=== PATIENT | female | born 1950 | race African-American/Black ===

== ENCOUNTER → 2019-08-22 10:34 | Outpatient (CLI) | payer MEDICARE, SELFPAY ==
--- NOTE | ~2019-08-22 | XR_ITS ---
XR lumbar spine 2-3V 08/22/2019 11:13 Indication: Back pain. Procedure: 3 views lumbar spine Comparison: 10/05/2015 Findings: There is disc narrowing which has progressed at L3-4, L4-5 and L5-S1. There has been progre ssion of first set hypertrophy at these levels with grade 1 degenerative spondylolisthesis at L4-5. V ertebral body heights are maintained. Impression: 1: Interval progression of moderate lumbar spondylosis. Reviewed, dictated and finalized at location A. 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
--- NOTE | ~2019-08-22 | XR_ITS ---
EXAMINATION: XR knee RT 2V EXAM DATE: 08/22/2019 11:13 INDICATION: Chronic lower back pain, Medial RT knee pain, General Rt hip pain, SX x3 months, Pt stat es had a recent fall but is not relative to current pain. TECHNIQUE: Right knee frontal and lateral projections. Comparison is made to prior examination from 01/20/2016. FINDINGS: There is moderate medial tibiofemoral and patellofemoral primary osteoarthritis. 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 There are no acute fractures or dislocations identif ied. There is no subcutaneous gas. Mild meniscal calcification, chondrocalcinosis. Chondrocalcinosi s can be an age related finding, but with other possible etiologies including CPPD, parathyroid disor ders, hemochromatosis, gout. There are no radiopaque foreign bodies. Mild progression compared to prior study. IMPRESSION: 1. Moderate right knee osteoarthritis. 2. Mild chondrocalcinosis. Reviewed, dictated and finalized at location B. 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
--- NOTE | ~2019-08-22 | XR_ITS ---
EXAMINATION: XR hip RT 2V w AP pelvis EXAM DATE: 08/22/2019 11:13 INDICATION: Chronic lower back pain, Medial RT knee pain, General Rt hip pain, SX x3 months, Pt stat es had a recent fall but is not relative to current pain TECHNIQUE: Right hip frontal, 'frog leg' projections for interpretation. Frontal projection pelvis. Comparison is made to prior examination from 11/27/2017. FINDINGS: Smooth right hip femoral head contour, no radiographic evidence of avascular necrosis. The re is moderate symmetric bilateral hip primary osteoarthritis. There are no acute fractures or disloc ations identified. There is no subcutaneous gas. Calcifications in the pelvis are believed to be ph leboliths. There are no radiopaque foreign bodies. IMPRESSION: Moderate symmetric bilateral hip osteoarthritis. Reviewed, dictated and finalized at location B. 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
== END ==
PROVIDERS: PCP Emergency Medicine; Visit Provider Emergency Medicine
DX: M47.896 Other spondylosis, lumbar region (principal); M16.0 Bilateral primary osteoarthritis of hip; M17.11 Unilateral primary osteoarthritis, right knee
CPT/HCPCS: 72100; 73502; 73521; 73560

== ENCOUNTER 2019-11-14 17:11 | Emergency (ER) | payer MEDICARE, SELFPAY ==
--- NOTE | ~2019-11-14 | XR_ITS ---
EXAMINATION: XR chest 2V DATE: 11/14/2019 17:58 INDICATION: Shortness of breath and right-sided chest pain TECHNIQUE: PA and lateral views of the chest are obtained. COMPARISON: 05/21/2018 FINDINGS: The lungs are free of acute opacities. There is no pleural effusion or pneumothorax. The ca rdiomediastinal silhouette is normal. There is moderate thoracic spondylosis. IMPRESSION: 1. No acute cardiopulmonary abnormality. Reviewed, dictated and finalized at location A.
--- NOTE | 2019-11-14 17:23 | ED.URI ---
HPI - URI/Sore Throat General Chief Complaint: Upper Respiratory Infection Stated Complaint: Sore throat/abd pain/chest burning sensation Time Seen by Provider: 11/14/19 17:23 Source: patient and RN notes reviewed History of Present Illness HPI Narrative: Patient is a 69-year-old female that presents the urgent care with complaints of sore throat, intermittent upper chest burning and dry cough. Patient states symptoms started on Sunday. Patient states that she has been taking throat spray for the sore throat. States that the chest burning and the sore throat is not consistent. States that the dry cough is sometimes causing her some intermittent shortness of breath with right upper back pain. Patient denies any history of blood clot. States that she is also had a right upper abdominal pain which is been on and off for over 1 month and she has been seeing her PCP for it. Patient states that she is also had imaging done for her right upper side pain. Reports that her main concern today is a sore throat and the upper chest burning . Patient denies any fever, nausea, vomiting. No other acute complaints. No acute distress noted. Patient aware the plan of care. Related Data Home Medications Medication Instructions Recorded Confirmed aspirin 81 mg tablet,delayed 81 mg PO DAILY 07/02/19 07/02/19 release blood sugar diagnostic #10 each 07/02/19 07/02/19 clopidogrel 75 mg tablet 75 mg PO DAILY 07/02/19 07/02/19 furosemide 40 mg tablet 40 mg PO QAM 07/02/19 07/02/19 lancets 33 gauge #100 each 07/02/19 07/02/19 nortriptyline 25 mg capsule 25 mg PO DAILY 07/02/19 07/02/19 pen needle, diabetic 32 gauge x #50 each 07/02/19 07/02/19 1/4 potassium chloride 20 mEq 20 meq PO DAILY 07/02/19 07/02/19 tablet,extended release(part/cryst) simvastatin 20 mg tablet 20 mg PO DAILY 07/02/19 07/02/19 insulin glargine [Lantus Solostar unit SUBCUT 11/14/19 U-100 Insulin] insulin lispro [Humalog KwikPen unit SUBCUT 11/14/19 Insulin] omeprazole 11/14/19 spironolactone 11/14/19 tobramycin-dexamethasone [TobraDex] 11/14/19 Allergies Allergy/AdvReac Type Severity Reaction Status Date / Time Gbzyrrf-Vda-Rvx Reductase Allergy Mild Cramping Verified 08/05/19 20:17 Inhibitor of the Muscles Penicillins Allergy Itching Verified 08/05/19 20:17 Review of Systems Review of Systems: Narrative: CONSTITUTIONAL: Denies fever, chills, or sweats. EYES: Denies visual changes, redness, or discharge. ENT: Reports of intermittent sore throat and postnasal drainage CARDIOVASCULAR: Denies chest pain, palpitations, or edema. RESPIRATORY: Reports of dry cough with intermittent dyspnea GASTROINTESTINAL: Reports of intermittent right upper abdominal/side pain without nausea, vomiting, diarrhea GENITOURINARY: Denies dysuria or hematuria. SKIN: Denies rash or itching. MUSCULOSKELETAL: Denies back pain, joint pain, or myalgia. NEUROLOGIC: Denies headache, numbness, or weakness. All other systems reviewed are negative, except as documented in HPI. PMFSH Comments At the time of my signature, I reviewed and agree with the nursing past medical, surgical, social, and family history. There is no relevant family history pertinent to the patient complaint. Exam Narrative: Exam Narrative: GENERAL: This is a well-nourished, well-developed patient, in no apparent distress. HEAD: normocephalic, atraumatic. EYES: PERRL. Sclera clear/white. Vision is grossly intact. EARS: External ears normal, auditory canals clear and without drainage, TMs normal without perforation. Hearing grossly intact. NOSE: External nose normal with no obvious nasal discharge, nares without redness, no rhinorrhea. THROAT: Mucous membranes moist, posterior pharynx clear. Mild postnasal drainage NECK: Neck supple CARDIOVASCULAR: Regular rate and rhythm without murmurs, gallops, or rubs. RESPIRATORY: Clear to auscultation. Slightly diminished bibasilar GASTROINTESTINAL: Abdomen soft,
[2019-11-14 17:24] VITALS: BP 152/56; PULSE 94; RESP 20; TEMP 37.5; O2SAT 100
== END 2019-11-14 18:20 | disposition home or self-care (01) ==
PROVIDERS: Emergency Provider Nurse Practitioner Family; PCP Emergency Medicine
DX: R09.82 Postnasal drip (principal); K21.9 Gastro-esophageal reflux disease without esophagitis; I10 Essential (primary) hypertension; E78.00 Pure hypercholesterolemia, unspecified; E11.9 Type 2 diabetes mellitus without complications; Z86.73 Personal history of transient ischemic attack (TIA), and cerebral infarction without residual deficits; Z79.4 Long term (current) use of insulin
CPT/HCPCS: 71046; 99213; G0463

== ENCOUNTER 2020-02-16 16:28 | Inpatient (IN) | payer MEDICARE, SELFPAY ==
[2020-02-16] VITALS (11 sets, daily range): BP systolic 154–180; BP diastolic 59–80; PULSE 66–78; RESP 14–20; TEMP 36.3–36.7; O2SAT 99–100; BMI 49.8
--- NOTE | ~2020-02-16 | CT_ITS ---
EXAMINATION: CTA chest abdomen pelvis DATE: 02/16/2020 20:58 CDT INDICATION: Right chest pain, shortness of breath and elevated d-dimer. Right abdominal pain. TECHNIQUE: Computed tomographic angiography (CTA) of the chest, abdomen, and pelvis was performed wit h 200 mL Omnipaque-350 intravenous contrast. The dose-length product was 1761.42 mGy-cm. Maximum inte nsity projection 3D-reconstructions of the aorta and other arteries were constructed by the technolog ist on a separate workstation. Automated exposure control and iterative reconstruction technique were employed. COMPARISON: CT dated 05/27/2015. FINDINGS: CHEST, ABDOMEN AND PELVIS CTA: There is atherosclerosis of the aorta. Heart size is normal. There is coronary atherosclerosis. The s tudy is suboptimal for evaluation of pulmonary embolism. No large central pulmonary emboli are identi fied. Nonenlarged mediastinal lymph nodes are present, likely reactive. There are small subcentimeter hypodensities of the liver, most likely benign. The spleen, pancreas, a drenal glands and kidneys are unremarkable. Gallbladder is present. No free air or free fluid. There is a small 2-3 mm fissural nodule on the right, coronal image 39, likely benign. No focal airspace co nsolidation. No endobronchial lesions. Mild thoracic spondylosis with accentuated kyphosis. Moderate lower lumbar spondylosis. IMPRESSION: 1. No findings to account for patient's symptoms. Examination limited for evaluation of peripheral pu lmonary embolism. No large central pulmonary emboli. Reviewed, dictated and finalized at location A. IMPRESSION: 1. No findings to account for patient's symptoms. Examination limited for evalu ation of peripheral pulmonary embolism. No large central pulmonary emboli.
--- NOTE | ~2020-02-16 | XR_ITS ---
EXAMINATION: XR barium swallow modified EXAM DATE: 02/19/2020 10:46 INDICATION: Dysphagia. TECHNIQUE: Modified barium esophagram was performed by myself to administered fluoroscopy, in conjun ction with speech pathologist who administered barium in varying consistencies as per speech patholog ist documentation. This was recorded on tape. The DAP for this procedure was 0.4 Gycm2. FINDINGS: Oral stage: Adequate function. Pharyngeal phase: Adequate function. Laryngeal penetration: None. Aspiration: None. Laryngeal sensitivity: Present. IMPRESSION: Normal modified esophagram exam. Please refer to speech pathologist findings and specifi c feeding recommendations. Reviewed, dictated and finalized at location A. IMPRESSION: Normal modified esophagram exam. Please refer to speech pathologis t findings and specific feeding recommendations.
--- NOTE | ~2020-02-16 | XR_ITS ---
EXAMINATION: XR chest 2V 02/16/2020 18:58 INDICATION: Chest pain. History of hypertension. PROCEDURE: AP and lateral views of the chest COMPARISON: Comparison to multiple prior studies sequentially, with oldest reviewed study dated 10/2015. FINDINGS: The lungs are clear. The cardiomediastinal silhouette is enlarged. There are no pleural ef fusions. There is no pneumothorax suspected. IMPRESSION: 1: NO ACUTE CARDIOPULMONARY DISEASE. Reviewed, dictated and finalized at location A.
--- NOTE | 2020-02-16 16:55 | ECG_ITS ---
Measurements Intervals [place] Rate: 76 P: -18 RI: 193 QRS: -8 QRSD: 100 T: -32 QT: 401 QTc: 452 Interpretive Statements SINUS RHYTHM DELAYED PRECORDIAL R/S TRANSITION MINIMAL Q WAVES- INFERIOR LEADS BORDERLINE ST-T WAVE ABNORMALITY- INF/LAT LEADS BORDERLINE ECG Electronically Signed On 02-16-2020 19:57:04 CDT by Kiran Moss D.O.
[2020-02-16 18:21] LABS: Basophils Percent Auto 0.3 % (0.2-1.2); Eosinophils Absolute Auto 0.1 K/mm3 (0-0.3); Eosinophils Percent Auto 1.5 % (0-4.4); Hemoglobin 11.3 g/dL (12.0-15.0); Immature Granulocyte Absolute 0.02 K/mm3 (0.00-0.031); Immature Granulocyte Percent A 0.2 % (0-0.5); Lymphocytes Absolute Auto 2.07 K/mm3 (0.9-3.2); Lymphocytes Percent Auto 22.2 % (18.3-44.2); Mean Corpuscular HGB Conc 32.3 g/dl (32-36); Mean Corpuscular Hemoglobin 30.2 pg (26-34); Mean Corpuscular Volume 93.6 fl (80-100); Mean Platelet Volume 12.3 fl (7.4-10.4); Monocytes Percent Auto 10.3 % (2.6-8.5); Neutrophils Absolute Auto 6.1 K/mm3 (1.3-6.7); Neutrophils Percent Auto 65.5 % (45.5-73.1); Platelet Count Result 182 k/mm3 (150-375); Red Blood Count 3.74 M/mm3 (4.2-5.4); Red Cell Distribution Width 15.2 % (11.5-14.5); White Blood Count 9.3 K/mm3 (4.5-10.0)
[2020-02-16 18:32] LABS: Anion Gap 13.2 mmol/L (7-16); Blood Urea Nitrogen 28 mg/dL (7-17); Calcium 9.2 mg/dL (8.4-10.2); Carbon Dioxide 26 mmol/L (22-30); Chloride 102 mmol/L (98-107); Estimated CRCL calculation 43 ml/min; Estimated Glomerular Filt Rate 39; Glucose 210 mg/dL (65-105); INR 1.1; Partial Thromboplastin Time 26.5 SECONDS (22.3-36.8); Potassium 4.2 mmol/L (3.4-5.0); Prothrombin Time 13.4 Seconds (11.1-14.7); Sodium 137 mmol/L (137-145)
--- NOTE | 2020-02-16 18:46 | ED.CHESTPAIN ---
HPI - Chest Pain General Chief Complaint: Chest Pain Stated Complaint: sob Time Seen by Provider: 02/16/20 17:53 Source: patient Mode of arrival: ambulatory Limitations: no limitations History of Present Illness HPI narrative: This patient is 69 year old with history of CVA, DM, hyperlipidemia who presents for evaluation of right side body pain x 1 week. Patient reports constant burning pain to right chest, right back, right arm and right leg. The pain in her right chest and back are worse with exertion . She also report fatigue and shortness of breath. Related Data Home Medications Medication Instructions Recorded Confirmed blood sugar diagnostic #10 each 07/02/19 07/02/19 furosemide 40 mg tablet 40 mg PO QAM 07/02/19 07/02/19 lancets 33 gauge #100 each 07/02/19 07/02/19 nortriptyline 25 mg capsule 25 mg PO DAILY 07/02/19 07/02/19 pen needle, diabetic 32 gauge x #50 each 07/02/19 07/02/19 1/4 potassium chloride 20 mEq 20 meq PO DAILY 07/02/19 07/02/19 tablet,extended release(part/cryst) simvastatin 20 mg tablet 20 mg PO DAILY 07/02/19 07/02/19 insulin lispro [Humalog KwikPen unit SUBCUT 11/14/19 Insulin] omeprazole 11/14/19 spironolactone 11/14/19 tobramycin-dexamethasone [TobraDex] 11/14/19 Allergies Allergy/AdvReac Type Severity Reaction Status Date / Time Kajpmvd-Bkt-Bru Reductase Allergy Mild Cramping Verified 11/25/19 06:29 Inhibitor of the Muscles Penicillins Allergy Itching Verified 11/25/19 06:29 Review of Systems Review of Systems: All systems reviewed & are unremarkable except as noted in HPI and below Constitutional: Constitutional: Denies chills and Denies fever(s) Cardiovascular: Cardiovascular: Reports chest pain and Reports radiating jaw, neck or arm pain Respiratory: Respiratory: Reports cough, Reports dyspnea and Denies wheezing Gastrointestinal: Gastrointestinal: Reports abdominal pain, Denies diarrhea, Denies nausea and Denies vomiting Genitourinary: Genitourinary: Reports dysuria PMFSH Past Medical History Medical History (Updated 02/17/20 @ 00:03 by Raquel Latham MD) Dyslipidemia Essential hypertension Type 2 diabetes mellitus with hyperglycemia Surgical History Surgical History (Updated 02/16/20 @ 23:58 by Raquel Latham MD) H/O thyroidectomy Hx of tonsillectomy Social History Social History (System 11/25/19 @ 06:29 by Mirtha Bourne) Smoking status: Never smoker Alcohol intake: never Exam Narrative: Exam Narrative: GENERAL: Well-appearing, well-nourished, and in no acute distress. obese HEAD: Normocephalic, atraumatic EYES: PERRLA and EOMI, conjunctiva clear without discharge NOSE: Nares clear, no rhinorrhea or epistaxis THROAT:Mucous membranes moist, Oropharynx normal without erythema, exudate, peritonsillar swelling or fluctuance NECK: Supple, without lymphadenopathy or mass RESPIRATORY: No respiratory distress, Airway patent, Respirations non-labored, Clear to auscultation without rales, rhonchi or wheeze, right chest tenderness HEART: Regular rate and rhythm. No murmur heard. Normal peripheral pulses. ABDOMEN: Soft, RUQ tenderness, nondistended, normal active bowel sounds. No masses. No rebound or guarding, No organomegaly. EXTREMITIES: No edema, normal strength with full range of motion. SKIN: Warm, dry, normal color without rash NEURO: Alert and oriented x3. CN 2-12 grossly intact. No focal deficits. PSYCH: Normal mood and affect. Course Consultations Consultation #1: I Discussed case with Dr. Izquierdo. PAtient has atypical pain. I discussed I ordered CTA to rule out PE but this CT was unable to rule out PE Date: 02/16/20 Time: 22:16 Consultation #2: I Discussed case with Dr. Arevalo and he agrees to consult. Ok to give lovenox Date: 02/16/20 Time: 23:00 Vital Signs Vital signs: Vital Signs Temperature 97.4 F L 02/16/20 16:52 Pulse Rate 78 02/16/20 16:52 Respiratory Rate 16 07
--- NOTE | 2020-02-16 18:50 | PC.NURSE ---
Called lab to add on CMP , Trop I Baseline, Lipase, PT INR, PTT, D Dimer, CBCD
[2020-02-16] MEDS: ASPIRIN 81 MG CHEWABLE TABLET 324 MG PO (19:01)
[2020-02-16 19:10] LABS: Alanine Aminotransferase 17 U/L (4-35); Albumin Level 4.1 g/dL (3.5-5.1); Alkaline Phosphatase 63 U/L (38-126); Aspartate Amino Transferase 32 U/L (14-36); Bilirubin,Total 0.3 mg/dL (0.2-1.3); Lipase 77 U/L (23-300)
--- NOTE | 2020-02-16 20:10 | PC.NURSE ---
DDImer- added on, Swathi bush called to add on earlier. Jami in lab will find the tube and get it running .
[2020-02-16 20:20] LABS: D Dimer 2.95 ug/mL (<0.48)
[2020-02-16] MEDS: ONDANSETRON INJ 4 MG/2 ML VIAL IV PUSH (21:27)
[2020-02-16] MEDS: NITROGLYCERIN OINTMENT 1 INCH DOSE TRANSDERM (21:28)
[2020-02-16] MEDS: MORPHINE SULFATE 4 MG/ML INJ 6 MG IV PUSH (21:30)
[2020-02-16 22:00] LABS: Troponin I 0.526 ng/mL (0.000-0.034)
[2020-02-16] MEDS: ENOXAPARIN 40 MG/0.4 ML SYRINGE SUB-Q (22:44)
[2020-02-16] MEDS: ENOXAPARIN 100 MG/ML SYRINGE SUB-Q (22:45)
[2020-02-16 22:49] LABS: Add Urine Microscopic? YES; Appearance Urine Clear (Clear); Bacteria Urine Trace /hpf; Bilirubin Urine Negative (Negative); Blood Urine Negative (Negative); Color Urine Straw (Yellow); Glucose Urine UA 1+ mg/dL (Negative); Ketones Urine Negative (Negative); Leukocyte Esterase Ur Negative LEU/UL (Negative); Mucus Urine Rare /lpf; Nitrate Urine Negative (Negative); Protein Urine 1+ mg/dL (Negative); RBC Urine 0-2 /hpf (0-2); Squamous Epithelial Cell Urine Occasional /hpf (Few); Urobilinogen Urine Negative mg/dL (<2.0); WBC Urine 0-3 /hpf
[2020-02-16 22:53] LABS: Specific Grav Ur 1.048 (1.001-1.035)
[2020-02-17] VITALS (16 sets, daily range): BP systolic 138–170; BP diastolic 52–113; PULSE 63–81; RESP 18–20; TEMP 36.1–37.1; O2SAT 97–100
--- NOTE | 2020-02-17 00:09 | ADMGEN ---
This patient, Katlin Calles, was admitted to IMU Room 211-01. Patient/family oriented to hospital policies and general routines including ID bracelet, bed and alarms, visiting hours, pain management, procedures, bathroom and other care routines, personal items, smoking policy, room service/diet, and visiting hours. Valuables list has been completed. Information on how to activate the Rapid Response Team has been discussed. Patient/Family are encouraged to report perceived risks to care and to ask questions if they do not understand what they are told or what they should do.
[2020-02-17 01:23] LABS: Troponin I 0.551 ng/mL (0.000-0.034)
[2020-02-17] MEDS: ACETAMINOPHEN 325 MG TABLET 650 MG PO ×3 (02:11→23:28)
[2020-02-17 05:07] LABS: Basophils Percent Auto 0.3 % (0.2-1.2); Eosinophils Absolute Auto 0.2 K/mm3 (0-0.3); Hematocrit 29.2 % (37.0-47.0); Hemoglobin 9.5 g/dL (12.0-15.0); Immature Granulocyte Absolute 0.02 K/mm3 (0.00-0.031); Immature Granulocyte Percent A 0.2 % (0-0.5); Lymphocytes Absolute Auto 2.86 K/mm3 (0.9-3.2); Lymphocytes Percent Auto 31.3 % (18.3-44.2); Mean Corpuscular HGB Conc 32.5 g/dl (32-36); Mean Corpuscular Hemoglobin 30.5 pg (26-34); Mean Corpuscular Volume 93.9 fl (80-100); Mean Platelet Volume 12.9 fl (7.4-10.4); Monocytes Percent Auto 11.1 % (2.6-8.5); Neutrophils Percent Auto 55.1 % (45.5-73.1); Platelet Count Result 157 k/mm3 (150-375); Red Blood Count 3.11 M/mm3 (4.2-5.4); Red Cell Distribution Width 15.3 % (11.5-14.5); White Blood Count 9.1 K/mm3 (4.5-10.0)
[2020-02-17 05:21] LABS: Anion Gap 10.7 mmol/L (7-16); Blood Urea Nitrogen 27 mg/dL (7-17); Calcium 8.7 mg/dL (8.4-10.2); Carbon Dioxide 26 mmol/L (22-30); Chloride 103 mmol/L (98-107); Estimated CRCL calculation 43 ml/min; Estimated Glomerular Filt Rate 41; Glucose 306 mg/dL (65-105); Potassium 4.7 mmol/L (3.4-5.0); Sodium 135 mmol/L (137-145)
[2020-02-17 08:15] LABS: Glucose Point of Care 307 (65-105)
[2020-02-17] MEDS: ASPIRIN 81 MG CHEWABLE TABLET PO (09:12)
[2020-02-17] MEDS: INSULIN GLARGINE (*BKC) 100 UNITS/ML 20 UNITS SUB-Q ×2 (10:01→20:30)
[2020-02-17] MEDS: POTASSIUM CHLORIDE 20 MEQ TABLET.ER PO (10:04)
[2020-02-17] MEDS: FUROSEMIDE 40 MG TABLET PO (10:04)
[2020-02-17] MEDS: SPIRONOLACTONE 50 MG TABLET PO (10:04)
[2020-02-17] MEDS: LOSARTAN POTASSIUM 100 MG TABLET PO (10:04)
[2020-02-17] MEDS: NORTRIPTYLINE HCL 25 MG CAPSULE PO (10:05)
[2020-02-17] MEDS: LIDOCAINE 5% PATCH 1 PATCH TRANSDERM (10:47)
[2020-02-17] MEDS: NAPROXEN 250 MG TABLET PO ×2 (10:47→17:31)
--- NOTE | 2020-02-17 10:53 | ECHO_ITS ---
Patient Info Name: Katlin Calles Age: 69 years : 1950 Gender: Female Ht: 65 in Wt: 299 lbs BSA: 2.58 m2 HR: 67 bpm BP: 170 / 59 mmHg Heart Rhythm: Sinus Rhythm Technical Quality: Good Exam Date: 02/17/2020 1:13 PM Exam Location: [facility] Patient Status: Outpatient Admit Date: 02/16/2020 Staff Ordering Physician: Gerardo Sanchez MD Ceramic Tiler: Won Doll RDCS, RT Attending Provider: Debbie Izquierdo DO Referring Physician: Daniel SRINIVASAN; Exam Type: CA echo dop color flow w con Study Info Indications I10 - Essential (primary) hypertension R07.1 - Chest pain on breathing Complete two-dimensional, color flow and Doppler transthoracic echocardiogram is performed with contrast to opacify the left ventricle and to improve the deliniation of the left ventricle endocardial borders. Summary 1. Left ventricular systolic function is normal, estimated at 60-65%. 2. There is moderately increased left ventricular wall thickness. 3. The left ventricular diastolic function is grade II diastolic dysfunction. 4. Right atrial chamber dimension is mildly enlarged. 5. There is no aortic valve stenosis. 6. There is trace mitral valve regurgitation. 7. There is mild tricuspid valve regurgitation. 8. Severe pulmonary hypertension, estimated pulmonary arterial systolic pressure is 68 mmHg. Left Ventricle Left ventricular chamber dimension is normal. Left ventricular systolic function is normal, estimated at 60-65%. There is moderately increased left ventricular wall thickness. The left ventricular diastolic function is grade II diastolic dysfunction. Right Ventricle Right ventricular chamber dimension is normal. Right ventricular systolic function is normal. Left Atria Left atrial chamber dimension is mildly enlarged. Right Atria Right atrial chamber dimension is mildly enlarged. Aortic Valve The aortic valve is trileaflet. There is mild aortic valve sclerosis. There is no aortic valve stenosis. There is no aortic valve regurgitation. Pulmonic Valve The pulmonic valve is not well visualized. There is trace pulmonic regurgitation. Mitral Valve The mitral valve has thickened leaflets. There is trace mitral valve regurgitation. The mitral valve annulus is mildly calcified. Tricuspid Valve The tricuspid valve leaflets are normal. There is mild tricuspid valve regurgitation. Severe pulmonary hypertension, estimated pulmonary arterial systolic pressure is 68 mmHg. Pericardium/Pleural The pericardium appears normal. There is no pericardial effusion. Inferior Vena Cava Dilated inferior vena cava with >50% collapse upon inspiration consistent with elevated right atrial pressure, 10 mmHg. Aorta The aortic root size at the sinus of Valsalva is normal. Left Ventricular Outflow Tract Name Value Normal LVOT 2D LVOT Diameter 1.91 cm LVOT Doppler LVOT Peak Gradient 6 mmHg LVOT Mean Gradient 3 mmHg LVOT VTI 28.64 cm LVOT VTI/AV VTI Ratio 0.76
[2020-02-17 11:57] LABS: Glucose Point of Care 322 (65-105)
--- NOTE | 2020-02-17 12:00 | PM.CNCAR ---
Assessment and Plan Assessment and plan (1) Atypical chest pain: Code(s): R07.89 - Other chest pain Status: Acute Assessment and Plan: Right-sided, constant burning/fire sensation worse with movement, touching her skin. Patient is adamant this is highly consistent with her prior shingles, although no skin eruption thus far. Curiously, the pain region in question extends well beyond a clear dermatomal distribution. elevated, flat troponin is not consistent with acute coronary syndrome most likely type 2 infarct, however, precise etiology unknown. Possible saeid/pericardial inflammatory or infectious process. No evidence of PE. patient is not in clinical decompensated heart failure. Check lower extremity venous Dopplers given unequal edema. (2) Elevated troponin I level: Code(s): R79.89 - Other specified abnormal findings of blood chemistry Status: Acute Assessment and Plan: as above, flat mild troponin elevation with highly atypical symptoms not consistent with acute coronary syndrome or acute plaque rupture. Obtain 2D echocardiogram to assess LV size /function, wall motion abnormality, pericardium, valve pathology pulmonary pressures. Further recommendations to follow. (3) Essential hypertension: Code(s): I10 - Essential (primary) hypertension Status: Acute Assessment and Plan: Not well controlled. (4) Type 2 diabetes mellitus with hyperglycemia: Code(s): E11.65 - Type 2 diabetes mellitus with hyperglycemia Status: Acute Assessment and Plan: Defer to primary service. Blood sugars remain elevated. (5) Dyslipidemia: Code(s): E78.5 - Hyperlipidemia, unspecified Status: Acute Assessment and Plan: Continue statin therapy given history of CVA. Goal LDL less than 70. (6) History of CVA (cerebrovascular accident): Code(s): Z86.73 - Personal history of transient ischemic attack (TIA), and cerebral infarction without residual deficits Status: Acute Assessment and Plan: No evidence of acute clinical change. Aspirin 81 mg daily advised as tolerated. History of Present Illness History of Present Illness Consult date/time: Date of service:02/17/20 12:00 This is a cardiology consultation at the request of Dr. Garcia of the [facility] service for opinion regarding elevated troponin and chest pain. Requesting physician: Chiki Garcia MD Consult reason: chest pain Reason For Visit: elevated troponin, right chest pain, Narrative: Patient is a very pleasant 69-year-old female with a past medical history significant for diabetes mellitus, hypertension, dyslipidemia, morbid obesity, history of CVA 2013 who presents with nearly 1 week complaint of burning/ fire sensation the right chest radiating around the right side to her back, neck worse with any movement, touching her scan. She states she is short of breath with activity only because of the pain and difficulty taking a deeper breath with movement. She does not feel she was short of breath for cardiac reason and clearly states she has no cardiac problem and her pain is not related to her heart. Nonetheless, troponins were checked despite her atypical symptoms and were elevated at 0.5 but have serial early been flat with no change. She has no known history of CAD. She states she has not been active past week due to pain along with for sleep. She admits to feeling very fatigued as a result. Her legs have been in a dependent position most often and believes the swelling in her legs has resulted from lack of activity. She will notes swelling in her legs if she sits too long but generally does not have edema. She denies orthopnea. She is adamant her symptoms are entirely consistent with a prior shingles but has yet to develop a rash. She knows she has a nerve infection she bleeds related to shingles and complains of severe / intolerant burning pain. Sh
--- NOTE | 2020-02-17 12:38 | PM.IMHP ---
H&P: HPI History of Present Illness Chief complaint: elevated troponin, right chest pain, Narrative: Katlin Calles is a 69 year old female morbidly obese with history of diabetes patient presented with complaint of right-sided back and chest apin, present for about a week, described as burning sensation numbness along the upper back radiating to the front anterior chest along the dermatome, patient has history of shingles and and described similar presentation and rash did not developed until after 10 days after her initial symptoms started, currently there is no rash, I suspect most likely patient is developing shingles will start the patient on acyclovir and Lidoderm patch for the pain control. patient also has elevated tropes most likely demand ischemia due to pain and stress unlikely acute coronary syndrome patient be seen by reprographics associate and further recommendation to follow. if patient remains clinically stable, begin possibly discharge home tomorrow. Review of Systems Review of Systems: All systems reviewed & are unremarkable except as noted in HPI and below PMFSH Family History Family History Other Cerebrovascular accident Diabetes mellitus Family history of arthritis Family history of cardiovascular disease Hypertension Social History Social History Smoking status: Never smoker Alcohol intake: never Substance use: never Substance use type: does not use Spiritual care concerns: No Meds Home Medications and Allergies Home Medications Medication Instructions Recorded Confirmed Type furosemide 40 mg tablet 40 mg PO QAM 07/02/19 02/17/20 History nortriptyline 25 mg capsule 25 mg PO DAILY 07/02/19 02/17/20 History potassium chloride 20 mEq 20 meq PO DAILY 07/02/19 02/17/20 History tablet,extended release(part/cryst) simvastatin 20 mg tablet 20 mg PO DAILY 07/02/19 02/17/20 History naproxen 250 mg PO BID #30 tablet 08/05/19 02/17/20 Rx gabapentin 300 mg capsule 300 mg PO TID #90 cap 09/15/19 02/17/20 Rx losartan 100 mg tablet 100 mg PO DAILY #90 tablet 11/10/19 02/17/20 Rx insulin lispro [Humalog KwikPen See Protocol SUBCUT ACHS 11/14/19 02/17/20 History Insulin] omeprazole 40 mg PO DAILY 11/14/19 02/17/20 History spironolactone 50 mg PO DAILY 11/14/19 02/17/20 History insulin glargine 100 unit/mL (3 50 unit SUB-Q QPM 90 Days #45 ml 02/04/20 02/17/20 Rx mL) subcutaneous pen Allergies Allergy/AdvReac Type Severity Reaction Status Date / Time Flzvajd-Qdm-Chl Reductase Allergy Mild Cramping Verified 11/25/19 06:29 Inhibitor of the Muscles Penicillins Allergy Itching Verified 11/25/19 06:29 Vital Signs Vital Signs - 24 hr 02/16/20 16:52 02/16/20 18:15 02/16/20 18:28 Temperature 97.4 F L Pulse Rate 78 77 78 Respiratory Rate 16 20 Blood Pressure 169/59 H 167/70 H Pulse Oximetry 100 99 100 02/16/20 19:00 02/16/20 19:30 02/16/20 20:00 Temperature Pulse Rate 72 69 67 Respiratory Rate 19 18 19 Blood Pressure 180/80 H 171/68 H 178/64 H Pulse Oximetry 100 100 100 02/16/20 20:30 02/16/20 21:30 02/16/20 22:30 Temperature 98.0 F Pulse Rate 68 66 70 Respiratory Rate 17 14 18 Blood Pressure 166/74 H 161/68 H 179/72 H Pulse Oximetry 100 100 100 02/16/20 23:15 02/16/20 23:45 02/17/20 00:00 Temperature 97.7 F Pulse Rate 72 75 74 Respiratory Rate 17 20 Blood Pressure 154/62 H Pulse Oximetry 100 99 02/17/20 02:00 02/17/20 04:00 02/17/20 06:00 Temperature 97.5 F L Pulse Rate 76 77 74 Respiratory Rate 18 Blood Pressure 138/52 L Pulse Oximetry 98 02/17/20 07:42 02/17/20 08:00 02/17/20 10:00 Temperature 97 F L Pulse Rate 67 65 76 Respiratory Rate 18 Blood Pressure 170/59 H Pulse Oximetry 99 Exam Narrative: Exam Narrative: morbidly obese Const: General: comfortable and no acute distress HENMT: Gen
[2020-02-17 13:11] LABS: Erythrocyte Sedimentation Rate 122 mm/hr (0-20)
[2020-02-17 13:13] LABS: Glucose Point of Care 268 (65-105)
[2020-02-17] MEDS: PERFLUTREN LIPID MICROSPHERES 1.5 ML VIAL DILUTED TO 10 ML TOTAL VOLUME IV PUSH (13:47)
[2020-02-17] MEDS: INSULIN ASPART (*BKC) 100 UNITS/ML SUB-Q (14:04)
[2020-02-17] MEDS: GABAPENTIN 300 MG CAPSULE PO ×2 (14:05→20:29)
[2020-02-17 16:04] LABS: Glucose Point of Care 279 (65-105)
[2020-02-17 17:26] LABS: Glucose Point of Care 290 (65-105)
[2020-02-17] MEDS: ACYCLOVIR 400 MG TABLET 800 MG PO ×2 (17:31→20:29)
[2020-02-17] MEDS: INSULIN ASPART (*BKC) 100 UNITS/ML 10 UNITS SUB-Q (17:47)
[2020-02-17 20:05] LABS: Glucose Point of Care 231 (65-105)
[2020-02-18] VITALS (12 sets, daily range): BP systolic 141–163; BP diastolic 48–78; PULSE 71–86; RESP 18–28; TEMP 36.2–36.8; O2SAT 96–100
[2020-02-18 05:24] LABS: Hematocrit 29.4 % (37.0-47.0); Hemoglobin 9.5 g/dL (12.0-15.0); Mean Corpuscular HGB Conc 32.3 g/dl (32-36); Mean Corpuscular Hemoglobin 30.2 pg (26-34); Mean Corpuscular Volume 93.3 fl (80-100); Mean Platelet Volume 12.5 fl (7.4-10.4); Platelet Count Result 163 k/mm3 (150-375); Red Blood Count 3.15 M/mm3 (4.2-5.4); Red Cell Distribution Width 15.3 % (11.5-14.5); White Blood Count 7.2 K/mm3 (4.5-10.0)
[2020-02-18 05:37] LABS: Anion Gap 9.7 mmol/L (7-16); Blood Urea Nitrogen 29 mg/dL (7-17); Calcium 8.9 mg/dL (8.4-10.2); Carbon Dioxide 27 mmol/L (22-30); Chloride 103 mmol/L (98-107); Estimated CRCL calculation 39 ml/min; Estimated Glomerular Filt Rate 36; Glucose 227 mg/dL (65-105); Potassium 4.7 mmol/L (3.4-5.0); Sodium 135 mmol/L (137-145)
[2020-02-18] MEDS: GABAPENTIN 300 MG CAPSULE PO ×3 (06:05→22:07)
[2020-02-18] MEDS: ACYCLOVIR 400 MG TABLET 800 MG PO ×5 (08:21→20:33)
[2020-02-18] MEDS: PANTOPRAZOLE 40 MG TABLET PO (08:22)
[2020-02-18] MEDS: ASPIRIN 81 MG CHEWABLE TABLET PO (08:22)
[2020-02-18] MEDS: SPIRONOLACTONE 50 MG TABLET PO (08:22)
[2020-02-18] MEDS: FUROSEMIDE 40 MG TABLET PO (08:22)
[2020-02-18] MEDS: POTASSIUM CHLORIDE 20 MEQ TABLET.ER PO (08:23)
[2020-02-18] MEDS: NORTRIPTYLINE HCL 25 MG CAPSULE PO (08:24)
[2020-02-18] MEDS: LOSARTAN POTASSIUM 100 MG TABLET PO (08:25)
[2020-02-18] MEDS: NAPROXEN 250 MG TABLET PO ×2 (08:25→17:25)
[2020-02-18] MEDS: INSULIN ASPART (*BKC) 100 UNITS/ML 10 UNITS SUB-Q ×3 (08:28→17:23)
[2020-02-18] MEDS: INSULIN ASPART (*BKC) 100 UNITS/ML SUB-Q (08:28)
[2020-02-18 08:38] LABS: Glucose Point of Care 222 (65-105)
--- NOTE | 2020-02-18 10:16 | PM.PNCARD ---
Progress Note: A&P Assessment and Plan (1) Atypical chest pain: Code(s): R07.89 - Other chest pain Status: Acute Assessment and Plan: Right-sided, constant burning/fire sensation worse with movement, touching her skin. Patient is adamant this is highly consistent with her prior shingles, although no skin eruption thus far. Curiously, the pain region in question extends well beyond a clear dermatomal distribution. elevated, flat troponin is not consistent with acute coronary syndrome most likely type 2 infarct, however, precise etiology unknown. Possible saeid/pericardial inflammatory or infectious process. No evidence of PE. Clinically, pain has all been associated with probable shingles but without vesicular skin eruption thus far. She has been treated 5 primary service with a sickle clear, lidocaine patches. Defer to primary service with regards to additional neuropathic pain management. Disposition per hospitalist service. (2) Elevated troponin I level: Code(s): R79.89 - Other specified abnormal findings of blood chemistry Status: Acute Assessment and Plan: As above, flat mild troponin elevation with highly atypical symptoms not consistent with acute coronary syndrome or acute plaque rupture. Echo without wall motion abnormalities. Normal LV function, moderate LVH secondary to hypertensive heart disease. No significant valve pathology, mild right atrial enlargement but preserved right ventricular systolic function with severe pulmonary hypertension. Follow-up 6 weeks as outpatient. (3) Pulmonary hypertension: Code(s): I27.20 - Pulmonary hypertension, unspecified Status: Acute Assessment and Plan: severe, RVSP 68 mm Hg. No clear cardiac/ valvular contribution. Clinically, patient must be retested for obstructive sleep apnea. apnea link if patient remains hospitalized overnight. Otherwise referral to pulmonology an outpatient sleep study. Negative CT PE protocol, no known history of COPD, underlying lung disease per patient. Normal LV size and function without wall motion abnormality, moderate LVH. Discussed my recommendation for pulmonology follow-up and sleep study with Dr. Garcia who agrees. (4) Essential hypertension: Code(s): I10 - Essential (primary) hypertension Status: Acute Assessment and Plan: Not well controlled, likely secondary to poorly controlled pain. (5) Type 2 diabetes mellitus with hyperglycemia: Code(s): E11.65 - Type 2 diabetes mellitus with hyperglycemia Status: Acute Assessment and Plan: Defer to primary service. Blood sugars remain elevated. (6) Dyslipidemia: Code(s): E78.5 - Hyperlipidemia, unspecified Status: Acute Assessment and Plan: Continue statin therapy given history of CVA. Goal LDL less than 70. (7) History of CVA (cerebrovascular accident): Code(s): Z86.73 - Personal history of transient ischemic attack (TIA), and cerebral infarction without residual deficits Status: Acute Assessment and Plan: No evidence of acute clinical change. Aspirin 81 mg daily advised as tolerated. Subjective Date/time seen: date of service: 02/18/20 10:16 Follow-up for chest pain, elevated troponin. Back, neck and right upper chest discomfort improved with lidocaine patches but worse with deep breathing and movement, touching the skin. Primary complaint, however, is severe burning pain in her nasal passages is an into her lungs with any activity. She states she would not be able to tolerate this if discharged and adds she would have to go to another hospital for help unfortunately. Skin burning pain much worse with any activity as well. She can tolerate back and chest discomfort with lidocaine patches but states she is unable tolerate deep breathing due to worsening burning pain with activity Review of Systems Review of Systems: All systems review
[2020-02-18] MEDS: LIDOCAINE 5% PATCH 2 PATCH TRANSDERM (10:17)
--- NOTE | 2020-02-18 10:59 | PM.DS ---
DS: Admitting Diagnosis Admitting Diagnosis Admitting Diagnosis: Other chest pain DS: Summary Time Spent with Patient Time attestation: Total time spent providing and/or coordinating discharge services: DS: Data Data Completed and Pending Labs on day of discharge: Labs from last 24 hours 02/18/20 02/18/20 02/18/20 08:15 04:53 04:53 WBC 7.2 RBC 3.15 L Hgb 9.5 L Hct 29.4 L MCV 93.3 MCH 30.2 MCHC 32.3 RDW 15.3 H Plt Count 163 MPV 12.5 H ESR Sodium 135 L Potassium 4.7 Chloride 103 Carbon Dioxide 27 Anion Gap 9.7 BUN 29 H Creatinine 1.70 H Estim Creat Clear Calc 39 Estimated GFR 36 L Glucose 227 H POC Capillary Glucose 222 H Calcium 8.9 02/17/20 02/17/20 02/17/20 19:57 17:22 15:51 WBC RBC Hgb Hct MCV MCH MCHC RDW Plt Count MPV ESR Sodium Potassium Chloride Carbon Dioxide Anion Gap BUN Creatinine Estim Creat Clear Calc Estimated GFR Glucose POC Capillary Glucose 231 H 290 H 279 H Calcium 02/17/20 02/17/20 02/17/20 13:11 11:39 04:42 WBC RBC Hgb Hct MCV MCH MCHC RDW Plt Count MPV ESR 122 H Sodium Potassium Chloride Carbon Dioxide Anion Gap BUN Creatinine Estim Creat Clear Calc Estimated GFR Glucose POC Capillary Glucose 268 H 322 H Calcium Discharge Plan Discharge Attending physician on discharge: Chiki Garcia Consulting providers: Ascencion Arevalo Discharging Clinician: Chiki Garcia Patient Disposition: Home, Self-Care Activity: as tolerated Diet: diabetic Discharge Instructions: Patient to follow up with her primary care provider as soon as possible, if any symptoms redevelop to go to nearest ER. Patient Instructions: Antibiotic Form Stand Alone Forms: General Discharge Information Discharge Medications: New acyclovir 400 mg Tablet 800 mg PO 5 TIMES DAILY Qty: 70 RF: 0 lidocaine [Lidoderm] 5 % Adhesive Patch,Medicated 3 patch transdermal DAILY Qty: 30 RF: 0 Chloraseptic Sore Throat 6-10 mg Lozenge 1 manisha PO PRN PRN (Reason: Sore Throat) Qty: 30 RF: 0 aspirin [Children's Aspirin] 81 mg Tablet,Chewable 81 mg PO DAILY@0800 Qty: 30 RF: 0 albuterol sulfate 90 mcg/actuation HFA aerosol inhaler 2 puff INHALATION QID PRN (Reason: shortness of breath or wheezing) Qty: 6.7 RF: 0 Continued naproxen 500 mg tablet 250 mg PO BID Qty: 30 RF: 0 omeprazole 40 mg capsule,delayed release(DR/EC) 40 mg PO DAILY RF: 0 spironolactone 50 mg tablet 50 mg PO DAILY RF: 0 insulin lispro [Humalog KwikPen Insulin] 100 unit/mL insulin pen See Protocol unit SUBCUT ACHS RF: 0 simvastatin [Zocor] 20 mg tablet 20 mg PO DAILY RF: 0 nortriptyline 25 mg capsule 25 mg PO DAILY RF: 0 furosemide [Lasix] 40 mg tablet 40 mg PO QAM RF: 0 potassium chloride [Klor-Con M20] 20 mEq tablet,ER particles/crystals 20 meq PO DAILY RF: 0 Lantus Solostar U-100 Insulin 100 unit/mL (3 mL) insulin pen 50 unit SUB-Q QPM 90 Days Qty: 45 RF: 0 gabapentin 300 mg capsule 300 mg PO TID Qty: 90 RF: 2 losartan 100 mg tablet 100 mg PO DAILY Qty: 90 RF: 1 Date of admission: 02/16/20 22:26 Primary Care Provider: Earl Mullen Admitting Provider: Debbie Izquierdo Attending physician on admission: Debbie Izquierdo Condition: Stable Quality VTE Prophylaxis VTE prophylaxis: mechanical ordered
[2020-02-18] MEDS: ACETAMINOPHEN 325 MG TABLET 650 MG PO ×2 (12:17→20:58)
[2020-02-18 12:39] LABS: Glucose Point of Care 155 (65-105)
--- NOTE | 2020-02-18 15:06 | PM.IMPN ---
Progress Note: A&P Assessment and Plan (1) Atypical chest pain: Code(s): R07.89 - Other chest pain Status: Acute Assessment and Plan: Katlin Calles is a 69 year old female morbidly obese with history of diabetes patient presented with complaint of right-sided back and chest apin, present for about a week, described as burning sensation numbness along the upper back radiating to the front anterior chest along the dermatome, patient has history of shingles and and described similar presentation and rash did not developed until after 10 days after her initial symptoms started, currently there is no rash, I suspect most likely patient is developing shingles will start the patient on acyclovir and Lidoderm patch for the pain control. patient also has elevated tropes most likely demand ischemia due to pain and stress unlikely acute coronary syndrome patient be seen by turn down worker and further recommendation to follow. patient with presumed shingles on acyclovir and and Lidoderm patches complains of severe pain on her back and chest feels quite anxious has difficult time taking deep breath and has a difficult catching her breath, is morbidly obese, most likely has a obstructive sleep and pulmonary hypertension, will have eyeglass frames polisher evaluate the patient will monitor patient overnight and further recommendation follow (2) Elevated troponin I level: Code(s): R79.89 - Other specified abnormal findings of blood chemistry Status: Acute Assessment and Plan: patient is mildly elevated and flat tropes most likely demand ischemia type 2 myocardial infarction unlikely acute coronary syndrome (3) Essential hypertension: Code(s): I10 - Essential (primary) hypertension Status: Acute Assessment and Plan: will continue home regimen and monitor (4) Type 2 diabetes mellitus with hyperglycemia: Code(s): E11.65 - Type 2 diabetes mellitus with hyperglycemia Status: Acute Assessment and Plan: patient takes Lantus 50 units daily, reduced down to 20 units daily while in the hospital monitor with sliding scale Subjective Date/time seen: Katlin Calles is a 69 year old female morbidly obese with history of diabetes patient presented with complaint of right-sided back and chest apin, present for about a week, described as burning sensation numbness along the upper back radiating to the front anterior chest along the dermatome, patient has history of shingles and and described similar presentation and rash did not developed until after 10 days after her initial symptoms started, currently there is no rash, I suspect most likely patient is developing shingles will start the patient on acyclovir and Lidoderm patch for the pain control. patient also has elevated tropes most likely demand ischemia due to pain and stress unlikely acute coronary syndrome patient be seen by turn down worker and further recommendation to follow. patient with presumed shingles on acyclovir and and Lidoderm patches complains of severe pain on her back and chest feels quite anxious has difficult time taking deep breath and has a difficult catching her breath, is morbidly obese, most likely has a obstructive sleep and pulmonary hypertension, will have eyeglass frames polisher evaluate the patient will monitor patient overnight and further recommendation follow Review of Systems Review of Systems: All systems reviewed & are unremarkable except as noted in HPI and below Exam Const: General: comfortable and no acute distress HENMT: General nose exam: Normal nares present Mouth: Yes moist mucous membranes Eyes: General: appearance normal, both eyes and all related structures Sclera: sclerae normal Neck: Neck: supple Resp: Effort & Inspection: normal respiratory effort Auscultation: clear to auscultation bilaterally Cardio: Rate: regular rate Rhythm: regular rhythm GI: Auscultation: normal bowel sounds Neuro: Speech:
[2020-02-18 16:35] LABS: Glucose Point of Care 169 (65-105)
--- NOTE | 2020-02-18 18:24 | PC.NURSE ---
Pt med/surg status - report given to Cynthia Roth RN- pt moved to room 322 via bed accompanied by staff- personal belongings with pt and appropriate documentation.
--- NOTE | 2020-02-18 18:32 | PC.NURSE ---
patient transfer to room 322 from room 311. report received from Leann LOYA
[2020-02-18] MEDS: DOCUSATE SODIUM 100 MG CAPSULE PO (20:33)
[2020-02-18] MEDS: polyethylene glycoL 3350 17 GM POWD.PACK PO (20:33)
--- NOTE | 2020-02-18 21:16 | PM.CNPUL ---
History of Present Illness History of Present Illness Consult date: 02/18/20 Requesting physician: Chiki Garcia MD Chief complaint: elevated troponin, right chest pain, Narrative: Thank you for the consultation. Please see job #[id number]. Dr Garcia asked me to see her for probable FILI and pulmonary HTN. She has a complex history including stablling chest pains, shortness of breath worse with exertion, difficultry swallowing. A/P Suspected FILI; snores, painful throat and dry mouth with sleep Poor quality sleep; stays awake for days pulmonary hypertension RVSP 68 mm Hg shortness of breath with exertion right sided chest pains dysphagia plan: [facility]nea[facility]; has had sleep testing years ago, no diagnosis of FILI; modified barium swallow for dysphagia; ANIA for collagen vascular screening with multiple organ system issues and pulmonary hypertension; eventual PFTs, [address] [facility] Family History Family History Other Cerebrovascular accident Diabetes mellitus Family history of arthritis Family history of cardiovascular disease Hypertension Social History Social History Smoking status: Never smoker Alcohol intake: never Substance use: never Substance use type: does not use Spiritual care concerns: No Meds Home Medications and Allergies Home Medications Medication Instructions Recorded Confirmed Type furosemide 40 mg tablet 40 mg PO QAM 07/02/19 02/17/20 History nortriptyline 25 mg capsule 25 mg PO DAILY 07/02/19 02/17/20 History potassium chloride 20 mEq 20 meq PO DAILY 07/02/19 02/17/20 History tablet,extended release(part/cryst) simvastatin 20 mg tablet 20 mg PO DAILY 07/02/19 02/17/20 History naproxen 250 mg PO BID #30 tablet 08/05/19 02/17/20 Rx gabapentin 300 mg capsule 300 mg PO TID #90 cap 09/15/19 02/17/20 Rx losartan 100 mg tablet 100 mg PO DAILY #90 tablet 11/10/19 02/17/20 Rx insulin lispro [Humalog KwikPen See Protocol SUBCUT ACHS 11/14/19 02/17/20 History Insulin] omeprazole 40 mg PO DAILY 11/14/19 02/17/20 History spironolactone 50 mg PO DAILY 11/14/19 02/17/20 History insulin glargine 100 unit/mL (3 50 unit SUB-Q QPM 90 Days #45 ml 02/04/20 02/17/20 Rx mL) subcutaneous pen Allergies Allergy/AdvReac Type Severity Reaction Status Date / Time Nxgaqvg-Thh-Dlk Reductase Allergy Mild Cramping Verified 11/25/19 06:29 Inhibitor of the Muscles Penicillins Allergy Itching Verified 11/25/19 06:29 Vital Signs Vital Signs - 24 hr 02/17/20 22:00 02/17/20 23:42 02/18/20 02:00 Temperature 36.6 C Pulse Rate 75 74 72 Respiratory Rate 20 Blood Pressure 163/68 H Pulse Oximetry 100 02/18/20 03:28 02/18/20 04:00 02/18/20 06:00 Temperature 36.6 C Pulse Rate 72 71 72 Respiratory Rate 20 20 Blood Pressure 163/68 H Pulse Oximetry 100 97 02/18/20 08:00 02/18/20 08:44 02/18/20 10:00 Temperature 36.8 C Pulse Rate 75 86 Respiratory Rate 20 Blood Pressure 153/65 H Pulse Oximetry 98 96 02/18/20 12:00 02/18/20 14:00 02/18/20 16:00 Temperature 36.8 C 36.6 C Pulse Rate 77 85 80 Respiratory Rate 28 H 18 Blood Pressure 150/61 H 151/56 H Pulse Oximetry 100 100 02/18/20 18:30 Temperature 36.2 C L Pulse Rate 81 Respiratory Rate 20 Blood Pressure 141/48 H Pulse Oximetry 99 Results Laboratory Findings CBC and BMP: 02/18/20 04:53 02/18/20 04:53 ABG, PT/INR, D-dimer: PT/INR, D-dimer PT 13.4 Seconds (11.1-14.7) 02/16/20 18:16 INR 1.1 02/16/20 18:16 D-Dimer 2.95 ug/mL (<0.48) H 02/16/20 18:14 Abnormal lab findings: Abnormal Labs 02/16/20 02/16/20 02/16/20 18:14 18:16 18:16 RBC 3.74 L Hgb 11.3 L Hct 35.0 L RDW 15.2 H MPV 12.3 H Mercer % (Auto) 10.3 H Mercer # (Auto) 1.0 H ESR D-Dimer 2.95 H Sodium BUN 28 H Creatinine 1.60 H
[2020-02-18] MEDS: INSULIN GLARGINE (*BKC) 100 UNITS/ML 20 UNITS SUB-Q (22:07)
[2020-02-18 22:15] LABS: Glucose Point of Care 205 (65-105)
--- NOTE | 2020-02-19 04:06 | CONS_ITS ---
DATE OF CONSULTATION: 02/18/2020 REASON FOR THE CONSULTATION: Dr. Garcia consulted me to see the patient for suspected sleep apnea, pulmonary hypertension. HISTORY OF PRESENT ILLNESS: The patient is a pleasant 69-year-old woman with several medical comorbidities including diabetes, shingles with pain in the right upper posterior chest. She has a history of very poor sleep and says that she frequently is awake for days because she is too exhausted to sleep and her sleep is poor quality. She may stay up for days until she is absolutely exhausted and then will fall asleep. She says that she believes that she snores, and that her throat is sore at night and her mouth is often dry in the morning. She does not often have dreams. Her legs do not bother her at night. She had a sleep study several years ago and was told that she did not have sleep apnea at that time. The patient was having right body pain for approximately 1 week. She describes burning on the right side of her chest both anteriorly and posteriorly. This pain was worse with exertion. When she took a breath in, her pain was worse. She was short of breath with exertion. She did not have a fever, but she did have fatigue. She has had a long-standing problem with eating very slowly. She cannot eat at a normal pace because she has such difficulty swallowing. Despite this, she has not lost weight. She has gained weight and it is frequently due to fluid in her lower extremities. She had an echocardiogram on February 15, which showed moderately increased left ventricular wall thickness, EF 60% to 65%, grade 2 diastolic dysfunction. Right atrial chamber mildly enlarged, severe pulmonary hypertension with a pulmonary arterial systolic pressure of 68 mmHg. The patient does not have a prior history of autoimmune disease. She does not have history of lupus, scleroderma, or other known collagen vascular disease. The patient has had increasing shortness of breath especially with exertion over many months. She is a lifelong nonsmoker. There is no underlying history of asthma, emphysema, or recurrent pneumonias. She does wheeze on occasion. Before presenting to this admission, she was at a hotel with her family members. She was increasingly short of breath and borrowed her cousin's rescue inhaler, which did give temporary relief of shortness of breath. She had her tonsils removed at age 36 due to recurrent tonsil infections. A CTA on February 15, showed limited evaluation for peripheral pulmonary emboli, but there are no large central pulmonary emboli. ALLERGIES: SHE IS SENSITIVE TO PENICILLIN, WHICH CAUSES ITCHING. STATINS CAUSE CRAMPING OF HER MUSCLES. HOME MEDICATIONS: 1. Furosemide 40 mg a day. 2. Gabapentin 300 mg t.i.d. 3. Glargine 50 units subcu daily. 4. Lispro per sliding scale protocol. 5. Losartan 100 mg daily. 6. Naprosyn 250 mg p.o. b.i.d. 7. Nortriptyline 25 mg daily. 8. Omeprazole 40 mg a day. 9. Potassium chloride 20 mEq daily. 10. Simvastatin 20 mg a day. 11. Spironolactone 50 mg a day. PAST MEDICAL HISTORY: 1. Hypertension. 2. Diabetes mellitus. 3. Dyslipidemia. 4. History of a stroke, currently on aspirin 81 mg a day. 5. Recent elevated troponin. 6. Atypical chest pain. PAST SURGICAL HISTORY: 1. The patient describes having multiple D and Cs and finally, after a partial hysterectomy, she had a complete hysterectomy and at that point, her pelvic pain improved. 2. Tonsillectomy at age 36 due to infected tonsils. 3. Right total knee replacement. 4. Focal laser surgery in both eyes and cataract surgery. She also has diabetic retinopathy. SOCIAL HISTORY: Never smoked tobacco. No alcohol. 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 She gave to 4 children. FAMILY HISTORY: Significant for various
[2020-02-19] MEDS: ACETAMINOPHEN 325 MG TABLET 650 MG PO (04:32)
[2020-02-19 06:03] VITALS: BP 150/93; PULSE 100; RESP 20; TEMP 36.1; O2SAT 98
[2020-02-19 07:41] LABS: Hematocrit 31.5 % (37.0-47.0); Hemoglobin 10.4 g/dL (12.0-15.0); Mean Corpuscular Volume 93.8 fl (80-100); Mean Platelet Volume 12.4 fl (7.4-10.4); Platelet Count Result 182 k/mm3 (150-375); Red Blood Count 3.36 M/mm3 (4.2-5.4); Red Cell Distribution Width 15.3 % (11.5-14.5); White Blood Count 6.5 K/mm3 (4.5-10.0)
[2020-02-19 08:06] LABS: Anion Gap 9.7 mmol/L (7-16); Blood Urea Nitrogen 28 mg/dL (7-17); Calcium 8.9 mg/dL (8.4-10.2); Carbon Dioxide 29 mmol/L (22-30); Chloride 104 mmol/L (98-107); Estimated CRCL calculation 40 ml/min; Estimated Glomerular Filt Rate 39; Glucose 83 mg/dL (65-105); Potassium 4.7 mmol/L (3.4-5.0); Sodium 138 mmol/L (137-145)
[2020-02-19] MEDS: ACYCLOVIR 400 MG TABLET 800 MG PO ×5 (08:34→21:12)
[2020-02-19] MEDS: FUROSEMIDE 40 MG TABLET PO (08:34)
[2020-02-19] MEDS: POTASSIUM CHLORIDE 20 MEQ TABLET.ER PO (08:34)
[2020-02-19] MEDS: LIDOCAINE 5% PATCH 2 PATCH TRANSDERM (08:34)
[2020-02-19] MEDS: NAPROXEN 250 MG TABLET PO ×2 (08:35→17:59)
[2020-02-19] MEDS: SPIRONOLACTONE 50 MG TABLET PO (08:35)
[2020-02-19] MEDS: ASPIRIN 81 MG CHEWABLE TABLET PO (08:35)
[2020-02-19] MEDS: LOSARTAN POTASSIUM 100 MG TABLET PO (08:35)
[2020-02-19] MEDS: GABAPENTIN 300 MG CAPSULE PO ×3 (08:35→21:13)
[2020-02-19] MEDS: PANTOPRAZOLE 40 MG TABLET PO (08:36)
[2020-02-19] MEDS: NORTRIPTYLINE HCL 25 MG CAPSULE PO (08:36)
[2020-02-19] MEDS: DOCUSATE SODIUM 100 MG CAPSULE PO ×2 (08:36→21:13)
[2020-02-19 08:37] LABS: Glucose Point of Care 82 (65-105)
--- NOTE | 2020-02-19 09:41 | PM.PNCARD ---
Progress Note: A&P Assessment and Plan (1) Atypical chest pain: Code(s): R07.89 - Other chest pain Status: Acute Assessment and Plan: Right-sided, constant burning/fire sensation worse with movement, touching her skin. She is adamant this is highly consistent with her prior shingles, although no skin eruption thus far. Curiously, the pain region in question extends well beyond a clear dermatomal distribution. Elevated, flat troponin is not consistent with acute coronary syndrome most likely type 2 infarct, however, precise etiology unknown. Possible saeid/pericardial inflammatory or infectious process. No evidence of PE. Clinically, pain has all been associated with probable shingles but without vesicular skin eruption thus far. She has been treated per primary service with acyclovir, lidocaine patches. Defer to primary service with regards to additional neuropathic pain management. Resuming her gabapentin may be of some benefit. (2) Elevated troponin I level: Code(s): R79.89 - Other specified abnormal findings of blood chemistry Status: Acute Assessment and Plan: As above, flat mild troponin elevation with highly atypical symptoms not consistent with acute coronary syndrome or acute plaque rupture. Echo without wall motion abnormalities. Normal LV function, moderate LVH secondary to hypertensive heart disease. No significant valve pathology, mild right atrial enlargement but preserved right ventricular systolic function with severe pulmonary hypertension. Outpatient follow-up has been arranged. (3) Pulmonary hypertension: Code(s): I27.20 - Pulmonary hypertension, unspecified Status: Acute Assessment and Plan: Severe, RVSP 68 mm Hg. No clear cardiac/ valvular contribution. Apnea link was done last night but the results are not yet in the chart. Negative CT PE protocol, no known history of COPD, underlying lung disease per patient. Normal LV size and function without wall motion abnormality, moderate LVH. Dr. Johnson has seen her. (4) Essential hypertension: Code(s): I10 - Essential (primary) hypertension Status: Acute Assessment and Plan: Not well controlled, likely secondary to poorly controlled pain. (5) Type 2 diabetes mellitus with hyperglycemia: Code(s): E11.65 - Type 2 diabetes mellitus with hyperglycemia Status: Acute Assessment and Plan: Per primary service. Blood sugars remain elevated. (6) Dyslipidemia: Code(s): E78.5 - Hyperlipidemia, unspecified Status: Acute Assessment and Plan: Continue statin therapy given history of CVA. Goal LDL less than 70 . (7) History of CVA (cerebrovascular accident): Code(s): Z86.73 - Personal history of transient ischemic attack (TIA), and cerebral infarction without residual deficits Status: Acute Assessment and Plan: No evidence of acute clinical change. Aspirin 81 mg daily advised as tolerated. Additional Plan No further cardiac recommendations. See discharge instructions for follow-up. Plan discussed with Dr Sanchez 0950 02/19/2020 Time Spent With Patient Time: 20 minutes were spent with this patient listening to her complains of pain discussing how neuralgia can be treated. Reassurance regarding her pain and shortness of breath. Time with patient: 15 - 25 minutes Subjective Date/time seen: 02/19/20 09:41 Interval history: Follow-up for: Right-sided chest pain, elevated troponin, pulmonary hypertension, essential hypertension, hyperlipidemia Date of service: 02/19/2020 Subjective: Tearful. Complaining of pain on the right side of her chest neck and back. Burning, intense, worsens with activity or deep breath. Does not seem to be getti
--- NOTE | 2020-02-19 11:35 | WPDGICN ---
Assessment and Plan Assessment and plan (1) Atypical chest pain: Code(s): R07.89 - Other chest pain Status: Acute Assessment and Plan: Patient has atypical chest pain poorly described in poorly localized. It is a burning pain only occurs after urinating in returning to her bed. Not with other activity. Please location of the pain is somewhat obscure. Plan is to evaluate with an EGD to exclude esophagitis or upper GI etiology for her discomfort. Although this is not certain by her history. Would recommend trial of proton pump inhibitors. (2) Type 2 diabetes mellitus with hyperglycemia: Code(s): E11.65 - Type 2 diabetes mellitus with hyperglycemia Status: Acute (3) Essential hypertension: Code(s): I10 - Essential (primary) hypertension Status: Acute GI Consult Note Consult date/time: 02/19/20 11:35 HPI: Katlin Calles is a 69 year old female seen in evaluation at the request of the hospitalist service. I am asked to see the patient because of right-sided chest pain. Patient admitted 02/16/2020 with atypical chest pain she has undergone evaluation with Cardiology service as well as Pulmonary Service. Patient describes the pain started in her right throat right side of her chest right side of her upper abdomen she describes as a burning pain occurs only occurs after walking to the bathroom returning to urinate and returning to her bed. She it does not occur if she walks about the room her goes to the bathroom for other reasons. She denies any association with dietary intake. She has been evaluated for possible shingles but no rashes developed. She states that she does cough sometimes and has done so intermittently on eating after having thyroid surgery some years ago. She denies any weight loss or bleeding. Review of Systems Review of Systems: All systems reviewed & are unremarkable except as noted in HPI and below PMFSH Past Medical History Medical History Dyslipidemia Essential hypertension History of CVA (cerebrovascular accident) Type 2 diabetes mellitus with hyperglycemia Surgical History Surgical History H/O thyroidectomy Hx of tonsillectomy Family History Family History Other Cerebrovascular accident Diabetes mellitus Family history of arthritis Family history of cardiovascular disease Hypertension Social History Social History Smoking status: Never smoker Alcohol intake: never Substance use: never Substance use type: does not use Spiritual care concerns: No Meds Home Medications and Allergies Home Medications Medication Instructions Recorded Confirmed Type furosemide 40 mg tablet 40 mg PO QAM 07/02/19 02/17/20 History nortriptyline 25 mg capsule 25 mg PO DAILY 07/02/19 02/17/20 History potassium chloride 20 mEq 20 meq PO DAILY 07/02/19 02/17/20 History tablet,extended release(part/cryst) simvastatin 20 mg tablet 20 mg PO DAILY 07/02/19 02/17/20 History naproxen 250 mg PO BID #30 tablet 08/05/19 02/17/20 Rx gabapentin 300 mg capsule 300 mg PO TID #90 cap 09/15/19 02/17/20 Rx losartan 100 mg tablet 100 mg PO DAILY #90 tablet 11/10/19 02/17/20 Rx insulin lispro [Humalog KwikPen See Protocol SUBCUT ACHS 11/14/19 02/17/20 History Insulin] omeprazole 40 mg PO DAILY 11/14/19 02/17/20 History spironolactone 50 mg PO DAILY 11/14/19 02/17/20 History insulin glargine 100 unit/mL (3 50 unit SUB-Q QPM 90 Days #45 ml 02/04/20 02/17/20 Rx mL) subcutaneous pen Allergies Allergy/AdvReac Type Severity Reaction Status Date / Time Wvdcoai-Yev-Fif Reductase Allergy Mild Cramping Verified 11/25/19 06:29 Inhibitor of the Muscles Penicillins Allergy Itching Verified 11/25/19 06:29 Vital Signs Vital Signs - 24 hr 0
[2020-02-19 12:32] LABS: Glucose Point of Care 83 (65-105)
--- NOTE | 2020-02-19 12:41 | PM.IMPN ---
Progress Note: A&P Assessment and Plan (1) Atypical chest pain: Code(s): R07.89 - Other chest pain Status: Acute Assessment and Plan: 02/19/20 12:41 Katlin Calles is a 69 year old female morbidly obese with history of diabetes patient presented with complaint of right-sided back and chest apin, present for about a week, described as burning sensation numbness along the upper back radiating to the front anterior chest along the dermatome, patient has history of shingles and and described similar presentation and rash did not developed until after 10 days after her initial symptoms started, currently there is no rash, I suspect most likely patient is developing shingles will start the patient on acyclovir and Lidoderm patch for the pain control. patient also has elevated tropes most likely demand ischemia due to pain and stress unlikely acute coronary syndrome patient be seen by database coordinator and further recommendation to follow. patient with presumed shingles on acyclovir and and Lidoderm patches complains of severe pain on her back and chest feels quite anxious has difficult time taking deep breath and has a difficult catching her breath, is morbidly obese, most likely has a obstructive sleep and pulmonary hypertension, patient was seen by the pulmonology and workup is in progress however today patient complains increase intensity of her right-sided chest pain burning pain and difficulty with swallowing, patient had a modified swallow study which essentially normal, patient was seen by GI patient will have a EGD tomorrow further evaluate, meanwhile will start the patient on Protonix. (2) Elevated troponin I level: Code(s): R79.89 - Other specified abnormal findings of blood chemistry Status: Acute Assessment and Plan: patient is mildly elevated and flat tropes most likely demand ischemia type 2 myocardial infarction unlikely acute coronary syndrome (3) Essential hypertension: Code(s): I10 - Essential (primary) hypertension Status: Acute Assessment and Plan: will continue home regimen and monitor (4) Type 2 diabetes mellitus with hyperglycemia: Code(s): E11.65 - Type 2 diabetes mellitus with hyperglycemia Status: Acute Assessment and Plan: patient takes Lantus 50 units daily, reduced down to 20 units daily while in the hospital monitor with sliding scale Subjective Date/time seen: 02/19/20 12:41 Katlin Calles is a 69 year old female morbidly obese with history of diabetes patient presented with complaint of right-sided back and chest apin, present for about a week, described as burning sensation numbness along the upper back radiating to the front anterior chest along the dermatome, patient has history of shingles and and described similar presentation and rash did not developed until after 10 days after her initial symptoms started, currently there is no rash, I suspect most likely patient is developing shingles will start the patient on acyclovir and Lidoderm patch for the pain control. patient also has elevated tropes most likely demand ischemia due to pain and stress unlikely acute coronary syndrome patient be seen by database coordinator and further recommendation to follow. patient with presumed shingles on acyclovir and and Lidoderm patches complains of severe pain on her back and chest feels quite anxious has difficult time taking deep breath and has a difficult catching her breath, is morbidly obese, most likely has a obstructive sleep and pulmonary hypertension, patient was seen by the pulmonology and workup is in progress however today patient complains increase intensity of her right-sided chest pain burning pain and difficulty with swallowing, patient had a modified swallow study which essentially normal, patient was seen by GI patient will have a EGD tomorrow further evaluate, meanwhile will start the patient on Protonix. Review of Systems Review of Syste
[2020-02-19 14:00] VITALS: BP 145/86; PULSE 78; RESP 18; TEMP 36.6; O2SAT 99
[2020-02-19 17:28] LABS: Glucose Point of Care 162 (65-105)
[2020-02-19] MEDS: INSULIN ASPART (*BKC) 100 UNITS/ML 10 UNITS SUB-Q (17:58)
[2020-02-19] MEDS: INSULIN GLARGINE (*BKC) 100 UNITS/ML 20 UNITS SUB-Q (21:14)
[2020-02-19 21:39] LABS: Glucose Point of Care 222 (65-105)
[2020-02-19 22:00] VITALS: BP 154/65; PULSE 80; RESP 18; TEMP 36.6; O2SAT 100
[2020-02-20] VITALS (8 sets, daily range): BP systolic 135–153; BP diastolic 50–76; PULSE 71–79; RESP 15–21; TEMP 36.3–36.4; O2SAT 98–100
[2020-02-20 06:10] LABS: Hematocrit 29.5 % (37.0-47.0); Hemoglobin 9.6 g/dL (12.0-15.0); Mean Corpuscular HGB Conc 32.5 g/dl (32-36); Mean Corpuscular Hemoglobin 30.4 pg (26-34); Mean Corpuscular Volume 93.4 fl (80-100); Mean Platelet Volume 12.2 fl (7.4-10.4); Platelet Count Result 172 k/mm3 (150-375); Red Blood Count 3.16 M/mm3 (4.2-5.4); Red Cell Distribution Width 15.1 % (11.5-14.5); White Blood Count 6.4 K/mm3 (4.5-10.0)
[2020-02-20 06:21] LABS: Anion Gap 7.9 mmol/L (7-16); Blood Urea Nitrogen 29 mg/dL (7-17); Calcium 8.6 mg/dL (8.4-10.2); Carbon Dioxide 29 mmol/L (22-30); Chloride 105 mmol/L (98-107); Estimated CRCL calculation 43 ml/min; Estimated Glomerular Filt Rate 41; Glucose 189 mg/dL (65-105); Potassium 4.9 mmol/L (3.4-5.0); Sodium 137 mmol/L (137-145)
[2020-02-20 08:44] LABS: Glucose Point of Care 204 (65-105)
--- NOTE | 2020-02-20 11:19 | WPDANESEPP ---
Anes - Eval Pre Procedure Procedure: Operation Date: 02/20/20 12:30 Proposed Procedures p Esophagogastroduodenoscopy - Jamey Caballero MD Date/Time: 02/20/20 11:19 Pre Op Diagnosis: elevated troponin, right chest pain, Patient Data Age: 69 Gender: F Height: 1.65 m Weight: 134.3 kg Last Vital Signs Temp 36.4 C 02/20/20 06:00 Pulse 79 02/20/20 06:00 Resp 20 02/20/20 06:00 BP 141/50 H 02/20/20 06:00 Pulse Ox 98 02/20/20 06:00 Allergies Allergy/AdvReac Type Severity Reaction Status Date / Time Gvmmeiq-Yyo-Rgp Reductase Allergy Mild Cramping Verified 11/25/19 06:29 Inhibitor of the Muscles Penicillins Allergy Itching Verified 11/25/19 06:29 Home Medications Medication Instructions Recorded Confirmed Type furosemide 40 mg tablet 40 mg PO QAM 07/02/19 02/17/20 History nortriptyline 25 mg capsule 25 mg PO DAILY 07/02/19 02/17/20 History potassium chloride 20 mEq 20 meq PO DAILY 07/02/19 02/17/20 History tablet,extended release(part/cryst) simvastatin 20 mg tablet 20 mg PO DAILY 07/02/19 02/17/20 History naproxen 250 mg PO BID #30 tablet 08/05/19 02/17/20 Rx gabapentin 300 mg capsule 300 mg PO TID #90 cap 09/15/19 02/17/20 Rx losartan 100 mg tablet 100 mg PO DAILY #90 tablet 11/10/19 02/17/20 Rx insulin lispro [Humalog KwikPen See Protocol SUBCUT ACHS 11/14/19 02/17/20 History Insulin] omeprazole 40 mg PO DAILY 11/14/19 02/17/20 History spironolactone 50 mg PO DAILY 11/14/19 02/17/20 History insulin glargine 100 unit/mL (3 50 unit SUB-Q QPM 90 Days #45 ml 02/04/20 02/17/20 Rx mL) subcutaneous pen Laboratory Tests 02/19/20 02/19/20 02/19/20 12:28 17:25 21:12 WBC RBC Hgb Hct MCV MCH MCHC RDW Plt Count MPV Sodium Potassium Chloride Carbon Dioxide Anion Gap BUN Creatinine Estim Creat Clear Calc Estimated GFR Glucose POC Capillary Glucose 83 mg/dl mg/dl 162 mg/dl H mg/dl 222 mg/dl H mg/dl (65-105) (65-105) (65-105) Calcium 02/20/20 02/20/20 02/20/20 05:49 05:49 08:41 WBC 6.4 K/mm3 K/mm3 (4.5-10.0) RBC 3.16 M/mm3 L M/mm3 (4.2-5.4) Hgb 9.6 g/dL L g/dL (12.0-15.0) Hct 29.5 % L % (37.0-47.0) MCV 93.4 fl fl (80-100) MCH 30.4 pg pg (26-34) MCHC 32.5 g/dl g/dl (32-36) RDW 15.1 % H % (11.5-14.5) Plt Count 172 k/mm3 k/mm3 (150-375) MPV 12.2 fl H fl (7.4-10.4) Sodium 137 mmol/L mmol/L (137-145) Potassium 4.9 mmol/L mmol/L (3.4-5.0) Chloride 105 mmol/L mmol/L (98-107) Carbon Dioxide 29 mmol/L mmol/L (22-30) Anion Gap 7.9 mmol/L mmol/L (7-16) BUN 29 mg/dL H mg/dL (7-17) Creatinine 1.50 mg/dL H mg/dL (0.7-1.0) Estim Creat Clear Calc 43 ml/min ml/min Estimated GFR 41 L (59 - ) Glucose 189 mg/dL H mg/dL (65-105) POC Capillary Glucose 204 mg/dl H mg/dl (65-105) Calcium 8.6 mg/dL mg/dL (8.4-10.2) Patient hx anesthesia problems: none Family hx anesthesia problems: none PMFSH Past Medical History Medical History Dyslipidemia Essential hypertension History of CVA (cerebrovascular accident) Type 2 diabetes mellitus with hyperglycemia Surgical History Surgical History H/O thyroidectomy Hx of tonsillectomy Family History Family History Other Cerebrovascular accident Diabetes mellitus Family history of arthritis Family history of cardiovascular disease Hypertension Social
--- NOTE | 2020-02-20 12:14 | WPDANESEFPP ---
Anes - Eval Final PreProcedure Day of Procedure 02/20/20 12:14 Patient weight: morbidly obese Heart: regular rate and rhythm Lungs: clear to auscultation and normal air movement Airway: Mallampati scale class II Neurological: alert and oriented Last oral intake: >/= 8 hours ASA classification: III Emergent: no Anesthetic plan: proceed Anesthesia type and monitoring: general GIVS Informed Consent: The patient's anesthetic plan and its attendant risks and benefits were discussed with the patient/family/POA. Questions were solicited and answers provided to the satisfaction of the patient/family/POA.
[2020-02-20] MEDS: LACTATED RINGERS 1,000 ML 150 ML IV CONT (12:15)
--- NOTE | 2020-02-20 12:30 | PC.NURSE ---
To GI Lab per chyna, IV 20 RAC. Report given to ayde.
[2020-02-20] MEDS: BENZOCAINE (*SP) 60 ML SPRAY CAN (HURRICAINE) 1 SPRAY MUCOUS MEM (12:43)
[2020-02-20 13:22] LABS: Glucose Point of Care 151 (65-105)
[2020-02-20 13:22] LABS: Glucose Point of Care 137 (65-105)
--- NOTE | 2020-02-20 13:30 | PC.NURSE ---
Returned from GI Lab.
[2020-02-20] MEDS: ACYCLOVIR 400 MG TABLET 800 MG PO ×2 (13:33→15:59)
[2020-02-20] MEDS: LIDOCAINE 5% PATCH 2 PATCH TRANSDERM (13:34)
[2020-02-20] MEDS: DOCUSATE SODIUM 100 MG CAPSULE PO (13:34)
[2020-02-20] MEDS: NORTRIPTYLINE HCL 25 MG CAPSULE PO (13:35)
[2020-02-20] MEDS: GABAPENTIN 300 MG CAPSULE PO (13:35)
[2020-02-20] MEDS: ASPIRIN 81 MG CHEWABLE TABLET PO (13:35)
[2020-02-20] MEDS: PANTOPRAZOLE 40 MG TABLET PO (13:35)
[2020-02-20] MEDS: LOSARTAN POTASSIUM 100 MG TABLET PO (13:35)
[2020-02-20] MEDS: FUROSEMIDE 40 MG TABLET PO (13:35)
[2020-02-20] MEDS: POTASSIUM CHLORIDE 20 MEQ TABLET.ER PO (13:36)
[2020-02-20] MEDS: SPIRONOLACTONE 50 MG TABLET PO (13:36)
--- NOTE | 2020-02-20 14:13 | PM.IMPN ---
Subjective Date/time seen: 02/20/20 14:13 Objective Data Vital Signs Vital Signs: Vital Signs - 24 hr 02/19/20 22:00 02/20/20 06:00 02/20/20 12:10 Temperature 98 F 97.6 F 97.4 F L Pulse Rate 80 79 75 Respiratory Rate 18 20 21 H Blood Pressure 154/65 H 141/50 H 153/76 H Pulse Oximetry 100 98 100 02/20/20 12:56 02/20/20 13:05 02/20/20 13:15 Temperature Pulse Rate 77 77 75 Respiratory Rate 18 20 15 Blood Pressure 135/59 L 136/53 L 147/64 H Pulse Oximetry 100 100 100 Intake/Output Intake/Output: Intake & Output 02/17/20 02/18/20 02/19/20 02/20/20 23:59 23:59 23:59 23:59 Intake Total 690 1460 1340 350 Output Total 1400 1950 1050 Balance -710 -490 290 350 Meds/Results Medications: Active Medications Generic Name Dose Route Start Last Admin Trade Name Freq PRN Reason Stop Dose Admin Acetaminophen 650 mg 02/17/20 01:54 02/19/20 04:32 Tylenol Tablet PO 650 mg Q4H PRN Administration Headache Acyclovir 800 mg 02/17/20 15:00 02/20/20 13:33 Zovirax Po PO 800 mg 5 TIMES DAILY SARAI Administration Aspirin 81 mg 02/17/20 08:00 02/20/20 13:35 Aspirin Chewable PO 81 mg DAILY@0800 SARAI Administration Dextrose 12.5 gm 02/17/20 09:44 Dextrose 50% Syringe IV PUSH PRN PRN Hypoglycemia Protocol Docusate Sodium 100 mg 02/18/20 21:00 02/20/20 13:34 Colace Capsule PO 100 mg Q12HR SARAI Administration Furosemide 40 mg 02/17/20 09:00 02/20/20 13:35 Lasix Tablet PO 40 mg QAM SARAI Administration Gabapentin 300 mg 02/17/20 14:00 02/20/20 13:35 Neurontin PO 300 mg Q8HR SARAI Administration Glucagon 1 mg 02/17/20 09:44 Glucagon For Inj IM PRN PRN Hypoglycemia Protocol Glucose 15 gm 02/17/20 09:44 Glutose 15 PO PRN PRN Hypoglycemia Protocol Dextrose 1,000 mls @ 100 mls/hr 02/17/20 09:44 Dextrose 5% 1,000 Ml IVPB PRN PRN Hypoglycemia Protocol Lactated Ringer's 1,000 mls @ 150 mls/hr 02/20/20 08:35 02/20/20 13:16 Lr - Lactated Ringers Iv IV CONT Infused .Q6H40M SARAI Infusion Insulin Aspart 2 - 5 units 02/17/20 12:00 02/20/20 13:37 Novolog SUB-Q Not Given TIDWM [facility] Protocol Insulin Aspart 10 units 02/17/20 17:30 02/20/20 07:51 Novolog SUB-Q Not Given TIDWM [facility] Insulin Glargine 20 units 02/17/20 21:00 02/19/20 21:14 Lantus 0.15 units/kg (20 units) 20 units SUB-Q Administration HS SARAI Lidocaine 2 patch 02/17/20 09:00 02/20/20 13:34 Lidoderm TRANSDERM 2 patch DAILY [facility] Administration Lorazepam 0.5 mg 02/18/20 11:10 Ativan Tablet PO Q6H PRN Anxiety Losartan Potassium 100 mg 02/17/20 09:00 02/20/20 13:35 Cozaar PO 100 mg DAILY [facility] Administration Morphine Sulfate 4 mg 02/16/20 22:26 Morphine Sulfate Inj IV PUSH Q2H PRN Pain Rated 7-10 Naproxen 250 mg 02/17/20 09:00 02/20/20 13:34 Naproxen PO Not Given BIDWM [facility] Nitroglycerin 0.4 mg 02/16/20 22:26 Nitrostat Subl 0.4 Mg (1/150) SUBLINGUAL Q5MIN PRN Chest Pain [place] Menthol 1 each 02/18/20 12:00 02/20/20 07:21 Lozenge PO 03/19/20 12:01 1 each PRN PRN Administration Sore Throat Nortriptyline HCl 25 mg 02/17/20 09:00 02/20/20 13:35 Pamelor PO 25 mg DAILY [facility] Administration Ondansetron HCl 4 mg 02/16/20 22:26 Zofran Inj IV PUSH Q4H PRN Nausea Pantoprazole Sodium 40 mg 02/18/20 09:00 02/20/20 13:35 Protonix PO 40 mg QAM SARAI Administration Polyethylene Glycol 17 gm 02/18/20 18:58 Miralax PO QAM PRN Constipation Potassium Chloride 20 meq 02/17/20 09:00 02/20/20 13:36 Kcl Tablet PO 20 meq DAILY SARAI Administration Spironolactone 50 mg 02/17/20 09:00 02/20/20 13:36 Aldactone PO 50 mg DAILY SARAI Administration Radiology Results: ITS Impressions Chest X-Ray 02/16/20 19:10 IMPRESSION:
--- NOTE | 2020-02-20 15:52 | PM.PNPUL ---
Progress Note: A&P Assessment and Plan (1) CASTELAN (dyspnea on exertion): Code(s): R06.00 - Dyspnea, unspecified Status: Acute Assessment and Plan: has shortness of breath, burning midsternal pain with walking (2) Pulmonary hypertension: Code(s): I27.20 - Pulmonary hypertension, unspecified Status: Acute Assessment and Plan: on echo We will see her i nt office after discharge to continue to evaluation her pulm htn, sleep issues, shortness of breaht with exertion. PFTs, 6 min walk, HST. Subjective Date/time seen: 02/20/20 15:52 This 69 yo female is seen in follow up for suspected FILI, pulmonary hypertension, shortness of breath with exertion. Her sister form complications from lupus age 65. She had an upper endoscopy today that was negative. Objective Data Vital Signs Vital Signs: Vital Signs - 24 hr 02/19/20 22:00 02/20/20 06:00 02/20/20 12:10 Temperature 36.6 C 36.4 C 36.3 C L Pulse Rate 80 79 75 Respiratory Rate 18 20 21 H Blood Pressure 154/65 H 141/50 H 153/76 H Pulse Oximetry 100 98 100 02/20/20 12:56 02/20/20 13:05 02/20/20 13:15 Temperature Pulse Rate 77 77 75 Respiratory Rate 18 20 15 Blood Pressure 135/59 L 136/53 L 147/64 H Pulse Oximetry 100 100 100 02/20/20 13:40 02/20/20 14:05 02/20/20 14:35 Temperature 36.4 C 36.4 C 36.4 C Pulse Rate 72 71 76 Respiratory Rate 18 18 18 Blood Pressure 150/59 H 151/60 H 149/52 H Pulse Oximetry 100 100 100 Intake/Output Intake/Output: Intake & Output 02/17/20 02/18/20 02/19/20 02/20/20 23:59 23:59 23:59 23:59 Intake Total 690 1460 1340 350 Output Total 1400 1950 1050 Balance -710 -490 290 350 Meds/Results Medications: Active Medications Generic Name Dose Route Start Last Admin Trade Name Freq PRN Reason Stop Dose Admin Acetaminophen 650 mg 02/17/20 01:54 02/19/20 04:32 Tylenol Tablet PO 650 mg Q4H PRN Administration Headache Acyclovir 800 mg 02/17/20 15:00 02/20/20 13:33 Zovirax Po PO 800 mg 5 TIMES DAILY SARAI Administration Aspirin 81 mg 02/17/20 08:00 02/20/20 13:35 Aspirin Chewable PO 81 mg DAILY@0800 SARAI Administration Dextrose 12.5 gm 02/17/20 09:44 Dextrose 50% Syringe IV PUSH PRN PRN Hypoglycemia Protocol Docusate Sodium 100 mg 02/18/20 21:00 02/20/20 13:34 Colace Capsule PO 100 mg Q12HR SARAI Administration Furosemide 40 mg 02/17/20 09:00 02/20/20 13:35 Lasix Tablet PO 40 mg QAM SARAI Administration Gabapentin 300 mg 02/17/20 14:00 02/20/20 13:35 Neurontin PO 300 mg Q8HR SARAI Administration Glucagon 1 mg 02/17/20 09:44 Glucagon For Inj IM PRN PRN Hypoglycemia Protocol Glucose 15 gm 02/17/20 09:44 Glutose 15 PO PRN PRN Hypoglycemia Protocol Dextrose 1,000 mls @ 100 mls/hr 02/17/20 09:44 Dextrose 5% 1,000 Ml IVPB PRN PRN Hypoglycemia Protocol Insulin Aspart 2 - 5 units 02/17/20 12:00 02/20/20 13:37 Novolog SUB-Q Not Given TIDWM [facility] Protocol Insulin Aspart 10 units 02/17/20 17:30 02/20/20 13:30 Novolog SUB-Q Not Given TIDWM [facility] Insulin Glargine 20 units 02/17/20 21:00 02/19/20 21:14 Lantus 0.15 units/kg (20 units) 20 units SUB-Q Administration HS SARAI Lidocaine 2 patch 02/17/20 09:00 02/20/20 13:34 Lidoderm TRANSDERM 2 patch DAILY [facility] Administration Lorazepam 0.5 mg 02/18/20 11:10 Ativan Tablet PO Q6H PRN Anxiety Losartan Potassium 100 mg 02/17/20 09:00 02/20/20 13:35 Cozaar PO 100 mg DAILY SARAI Administration Morphine Sulfate 4 mg 02/16/20 22:26 Morphine Sulfate Inj IV PUSH Q2H PRN Pain Rated 7-10 Naproxen 250 mg 02/17/20 09:00 02/20/20 13:34 Naproxen PO Not Given BIDWM [facility] Nitroglycerin 0.4 mg 02/16/20 22:26 Nitrostat Subl 0.4 Mg (1/150) SUBLINGUAL Q5MIN PRN Chest Pain [place] Menthol 1
[2020-02-22 17:48] LABS: ANA Cascade Screen Positive (Negative)
[2020-02-22 18:05] LABS: Chromatin (Nucleosomal) Ab <1.0; Chromatin Antibody Charge YES; DNA (ds) Antibody Charge YES; RNP Antibody 1.5; RNP Antibody Charge YES; Sm Antibody <1.0; Sm Antibody Charge YES; Sm/RNP Antibody <1.0; Sm/RNP Antibody Charge YES
--- NOTE | 2020-02-29 18:23 | PM.DS ---
DS: Admitting Diagnosis Admitting Diagnosis Admitting Diagnosis: Other chest pain DS: Discharge Diagnosis Discharge Diagnosis (1) Atypical chest pain: Code(s): R07.89 - Other chest pain Status: Acute Assessment and Plan: 02/19/20 12:41 Ktalin Calles is a 69 year old female morbidly obese with history of diabetes patient presented with complaint of right-sided back and chest apin, present for about a week, described as burning sensation numbness along the upper back radiating to the front anterior chest along the dermatome, patient has history of shingles and and described similar presentation and rash did not developed until after 10 days after her initial symptoms started, currently there is no rash, I suspect most likely patient is developing shingles will start the patient on acyclovir and Lidoderm patch for the pain control. patient also has elevated tropes most likely demand ischemia due to pain and stress unlikely acute coronary syndrome patient be seen by database administration project manager and further recommendation to follow. patient with presumed shingles on acyclovir and and Lidoderm patches complains of severe pain on her back and chest feels quite anxious has difficult time taking deep breath and has a difficult catching her breath, is morbidly obese, most likely has a obstructive sleep and pulmonary hypertension, patient was seen by the pulmonology and workup is in progress however today patient complains increase intensity of her right-sided chest pain burning pain and difficulty with swallowing, patient had a modified swallow study which essentially normal, patient was seen by GI patient will have a EGD tomorrow further evaluate, meanwhile will start the patient on Protonix. (2) Elevated troponin I level: Code(s): R79.89 - Other specified abnormal findings of blood chemistry Status: Acute Assessment and Plan: patient is mildly elevated and flat tropes most likely demand ischemia type 2 myocardial infarction unlikely acute coronary syndrome (3) Essential hypertension: Code(s): I10 - Essential (primary) hypertension Status: Acute Assessment and Plan: will continue home regimen and monitor (4) Type 2 diabetes mellitus with hyperglycemia: Code(s): E11.65 - Type 2 diabetes mellitus with hyperglycemia Status: Acute Assessment and Plan: patient takes Lantus 50 units daily, reduced down to 20 units daily while in the hospital monitor with sliding scale DS: Summary Hospital Course Reason for hospitalization: Chief complaint: elevated troponin, right chest pain, Narrative: Katlin Calles is a 69 year old female morbidly obese with history of diabetes patient presented with complaint of right-sided back and chest apin, present for about a week, described as burning sensation numbness along the upper back radiating to the front anterior chest along the dermatome, patient has history of shingles and and described similar presentation and rash did not developed until after 10 days after her initial symptoms started, currently there is no rash, I suspect most likely patient is developing shingles will start the patient on acyclovir and Lidoderm patch for the pain control. patient also has elevated tropes most likely demand ischemia due to pain and stress unlikely acute coronary syndrome patient be seen by database administration project manager and further recommendation to follow. if patient remains clinically stable, begin possibly discharge home tomorrow. Hospital Course: Katlin Calles is a 69 year old female morbidly obese with history of diabetes patient presented with complaint of right-sided back and chest apin, present for about a week, described as burning sensation numbness along the upper back radiating to the front anterior chest along the dermatome, patient has history of shingles and and described similar presentation and rash did not developed until after 10 days after her initial symptoms
== END 2020-02-20 16:46 | disposition home or self-care (01) | DRG 313 ==
LOC: ANHED 22:35 → ANHIMU 23:32 → ANH3MEDSUR 02-19 10:08 → ANHIMU 02-24 09:53
PROVIDERS: Internal Medicine Cardiovascular Disease; Internal Medicine Critical Care Medicine; Internal Medicine Gastroenterology; Admitting Provider Internal Medicine; Emergency Provider General Practice; PCP Emergency Medicine; Visit Provider Family Medicine
PROC: 0DJ08ZZ Inspection of Upper Intestinal Tract, Via Natural or Artificial Opening Endoscopic (ICD-10-PCS; CPT 43235; principal; 2020-02-20 12:30)
DX: R07.89 Other chest pain (principal); Z68.42 Body mass index [BMI] 45.0-49.9, adult; I27.20 Pulmonary hypertension, unspecified; E66.01 Morbid (severe) obesity due to excess calories; R79.89 Other specified abnormal findings of blood chemistry; I10 Essential (primary) hypertension; E11.65 Type 2 diabetes mellitus with hyperglycemia; E78.5 Hyperlipidemia, unspecified; R13.10 Dysphagia, unspecified; R06.00 Dyspnea, unspecified; Z79.4 Long term (current) use of insulin; Z79.899 Other long term (current) drug therapy; Z86.73 Personal history of transient ischemic attack (TIA), and cerebral infarction without residual deficits; Z86.19 Personal history of other infectious and parasitic diseases
CPT/HCPCS: 36415; 71046; 71275; 74174; 80048; 80076; 81001; 83690; 84484; 85025; 85027; 85380; 85610; 85652; 85730; 86038; 86225; 86235; 87081; 92611; 93005; 94762; 96372; 96374; 96375; 97110; 97116; 97161; 97165; 97530; 99285; A9270; C8929; G0378; J1650; J1815; J2270; J2405; J2704; J7120; Q9957; Q9967

== ENCOUNTER 2020-03-10 16:02 | Emergency (ER) | payer MEDICARE, SELFPAY ==
[2020-03-10 16:19] VITALS: BP 155/79; PULSE 78; RESP 18; TEMP 36.8; O2SAT 100
--- NOTE | 2020-03-10 17:04 | ED.URI ---
HPI - URI/Sore Throat General Chief Complaint: Upper Respiratory Infection Stated Complaint: Sore Throat Time Seen by Provider: 03/10/20 16:25 Source: patient and RN notes reviewed Mode of arrival: ambulatory Limitations: no limitations History of Present Illness HPI Narrative: Patient presents today complaining of a 2-day history of bilateral ear pain, right greater than left, sore throat, chills and sweats, decreased appetite, headache, slight slight slight cough , nasal congestion. Patient reports that she has lost her sense of taste as well. Denies fever, nausea, vomiting, diarrhea, abdominal pain, shortness of breath. Patient took some Excedrin without relief. States that she is seeking treatment today because she wants, something to take for this pain. History of tonsillectomy. No known exposure to COVID-19. MD elicited complaint: sore throat Related Data Home Medications Medication Instructions Recorded Confirmed furosemide 40 mg tablet 40 mg PO QAM 07/02/19 03/10/20 nortriptyline 25 mg capsule 25 mg PO DAILY 07/02/19 03/10/20 potassium chloride 20 mEq 20 meq PO DAILY 07/02/19 03/10/20 tablet,extended release(part/cryst) simvastatin 20 mg tablet 20 mg PO DAILY 07/02/19 03/10/20 insulin lispro [Humalog KwikPen See Protocol SUBCUT ACHS 11/14/19 03/10/20 Insulin] omeprazole 40 mg PO DAILY 11/14/19 03/10/20 spironolactone 50 mg PO DAILY 11/14/19 03/10/20 Allergies Allergy/AdvReac Type Severity Reaction Status Date / Time Xpurcou-Yqf-Cek Reductase Allergy Mild Cramping Verified 03/10/20 16:09 Inhibitor of the Muscles Penicillins Allergy Itching Verified 03/10/20 16:09 Review of Systems Review of Systems: Narrative: CONSTITUTIONAL: Denies body aches, fever, chills, or sweats. EYES: Denies visual changes, redness, or discharge. ENT: Denies rhinorrhea. + Congestion, sore throat, bilateral ear pain, loss of taste CARDIOVASCULAR: Denies chest pain, palpitations, or edema. RESPIRATORY: Denies dyspnea.+ Slight cough GASTROINTESTINAL: Denies abdominal pain, nausea, vomiting, or diarrhea.+ Decreased appetite GENITOURINARY: Denies dysuria or hematuria. SKIN: Denies rash, itching, or wounds. MUSCULOSKELETAL: Denies back pain, joint pain, or myalgia. NEUROLOGIC: Denies numbness, tingling, or weakness.+ Headache PSYCH: Denies depression or anxiety. PMFSH Social History Social History Smoking status: Never smoker Alcohol intake: never Substance use: never Substance use type: does not use Spiritual care concerns: No Comments At time of signature, I have reviewed and agree with nursing past medical, surgical, social and family history unless otherwise noted. Please see nursing chart for further information. There is no relevant family history pertinent to the presenting complaint Exam Narrative: Exam Narrative: GENERAL: Well-appearing, well-nourished, and in no acute distress. HEAD: Normocephalic, atraumatic. EYES: EOMI. No redness or drainage. Conjunctivae normal. ENT: Mucous membranes pink and moist. Nares clear. No rhinorrhea. TMs normal bilaterally. Throat slightly erythematous, mostly on the right side of the posterior oropharynx. Tonsils absent. No edema or exudate noted. Uvula midline. NECK: Normal AROM. Supple. No lymphadenopathy. CHEST: No respiratory distress. Clear to auscultation. HEART: Regular rate and rhythm. No murmur appreciated. Normal peripheral pulses. EXTREMITIES: Normal range of motion. No edema. SKIN: Warm, dry, no rash. Capillary refill normal. Normal skin turgor. NEURO: No focal deficits. Alert and oriented x3. Gait steady. PSYCH: Normal affect. No signs of depression or anxiety. Course Course Emergency Course: Patient is very disappointed that she is not receiving a prescription medication for her pain today. Had a very long conversation with patient regarding the difference between bacterial and viral
== END 2020-03-10 17:10 | disposition home or self-care (01) ==
PROVIDERS: Emergency Provider Nurse Practitioner; PCP Emergency Medicine
DX: B34.9 Viral infection, unspecified (principal); J02.9 Acute pharyngitis, unspecified; Z20.828 Contact with and (suspected) exposure to other viral communicable diseases; E78.00 Pure hypercholesterolemia, unspecified; I10 Essential (primary) hypertension; J45.909 Unspecified asthma, uncomplicated; K21.9 Gastro-esophageal reflux disease without esophagitis; M19.90 Unspecified osteoarthritis, unspecified site; M79.7 Fibromyalgia; E11.9 Type 2 diabetes mellitus without complications
CPT/HCPCS: 87081; 87880; 99213; G0463

== ENCOUNTER 2020-03-30 19:53 | Inpatient (IN) | payer MEDICARE, SELFPAY ==
--- NOTE | ~2020-03-30 | XR_ITS ---
EXAMINATION: XR chest 1V portable EXAM DATE: 03/30/2020 21:48 INDICATION: Shortness of breath and bilateral leg swelling. TECHNIQUE: Portable AP frontal chest x-ray was obtained. Comparison is made to prior examination from 02/16/2020. FINDINGS: The lungs are clear. There are no pleural effusions. Cardiac silhouette is prominent but magnified on this AP technique. There is no pneumothorax suspected. The bones and soft tissues are unremarkable. There is no significant interval change. IMPRESSION: No acute cardiopulmonary findings. Reviewed, dictated and finalized at location A.
--- NOTE | ~2020-03-30 | XR_ITS ---
XR chest 2V 04/04/2020 13:25 Indication: Shortness of breath Procedure: AP portable chest Comparison: Comparison to multiple prior studies sequentially, with oldest reviewed study dated 04/24. Findings: Cardiomegaly. No focal air space disease, pulmonary edema, pleural effusion or suspected pn eumothorax. Impression: 1: No acute cardiopulmonary disease. Reviewed, dictated and finalized at location A. Impression: 1: No acute cardiopulmonary disease.
--- NOTE | ~2020-03-30 | XR_ITS ---
XR shoulder LT min 2V 04/04/2020 13:24 Indication: Left shoulder pain after fall Procedure: 4 views left shoulder Comparison: 11/27/2017 Findings: No fracture, subluxation or dislocation. There is mild polyarticular osteoarthritis. No sig nificant soft tissue abnormality. No foreign bodies. Impression: 1: Mild polyarticular osteoarthritis. Reviewed, dictated and finalized at location A. Impression: 1: Mild polyarticular osteoarthritis.
--- NOTE | ~2020-03-30 | XR_ITS ---
XR hip LT 2V w AP pelvis 04/04/2020 13:24 INDICATION: Hip pain after fall PROCEDURE: 3 views left hip including AP pelvis COMPARISON: 11/27/2017 FINDINGS: Fracture, dislocation or subluxation is not identified. There is mild osteoarthritis of the hips. Pelvic rings are intact. Mild lower lumbar spondylosis. The soft tissues appear within normal limits. No foreign bodies are identified. IMPRESSION: 1: NO ACUTE BONE OR JOINT ABNORMALITY IDENTIFIED. Reviewed, dictated and finalized at location A.
--- NOTE | ~2020-03-30 | XR_ITS ---
XR cervical spine 4-5V 04/04/2020 13:25 Indication: Neck pain after fall Procedure: 4 view cervical spine Comparison: No prior studies for comparison. Findings: No fracture, subluxation or dislocation. Vertebral body and disc heights are preserved. Nor mal cervical lordosis. No prevertebral soft tissue abnormality. Lung apices are normal. Odontoid proc ess within normal limits. Impression: 1: No acute abnormality of the cervical spine. Reviewed, dictated and finalized at location A. Impression: 1: No acute abnormality of the cervical spine.
--- NOTE | ~2020-03-30 | US_ITS ---
EXAMINATION: US venous doppler [facility] DATE: 03/31/2020 10:58 INDICATION: Lower limb swelling TECHNIQUE: Shepard scale images without and with compression and Doppler images of the bilateral lower e xtremity veins were obtained. COMPARISON: 05/21/2018 FINDINGS: The right common femoral vein, profunda femoral vein, femoral vein, popliteal vein, peroneal trunk, p osterior tibial veins, and greater saphenous vein are patent. The left common femoral vein, profunda femoral vein, femoral vein, popliteal vein, peroneal trunk, po sterior tibial veins, and greater saphenous vein are patent. IMPRESSION: 1. Patent bilateral lower extremity veins. No evidence of deep venous thrombosis. Reviewed, dictated and finalized at location B. IMPRESSION: 1. Patent bilateral lower extremity veins. No evidence of deep venous thrombosi s.
--- NOTE | ~2020-03-30 | US_ITS ---
EXAMINATION: US renal BI DATE: 04/02/2020 14:36 INDICATION: Rising creatinine TECHNIQUE: Multiple grayscale and Doppler ultrasound images of the kidneys were obtained. COMPARISON: None. FINDINGS: The right kidney measures 11.2 x 4.0 x 4.2 cm. The left kidney measures 11.1 x 5.1 x 5.0 cm . The kidneys demonstrate normal parenchymal echogenicity. There is no hydronephrosis. The bladder is normal. IMPRESSION: 1. Normal kidneys without hydronephrosis. Reviewed, dictated and finalized at location B.
[2020-03-30 19:58] VITALS: BP 146/77; PULSE 83; RESP 24; TEMP 36.3; O2SAT 99
--- NOTE | 2020-03-30 20:13 | ECG_ITS ---
Measurements Intervals [place] Rate: 83 P: 34 MN: 212 QRS: 27 QRSD: 101 T: -82 QT: 378 QTc: 446 Interpretive Statements SINUS RHYTHM WITH FIRST DEGREE AV BLOCK VENTRICULAR TRIGEMINY CONSIDER INFERIOR INFARCT, AGE INDETERMINATE T WAVE ABNORMALITY IN ANTEROLAT/INF LEADS- CONSIDER ISCHEMIA ABNORMAL ECG Electronically Signed On 03-31-2020 7:18:18 CDT by Kiran Moss D.O.
[2020-03-30 20:55] LABS: Alveolar/Arterial O2 Gradient 5.8 mmHg; Base Excess ABG 0.6 mEq/l (+/-2.0); Device ROOM AIR; Fractional Inspired Oxygen 21 %; HCO3 ABG 24.1 mEq/l (22.0-26.0); Oxygen Content ABG 15.4 %vol (16.0-22.0); PCO2 ABG 34.7 mmHg (35.0-45.0); PO2 ABG 102.4 mmHg (80.0-100.0); PO2 FiO2 Ratio Arterial Blood 4.88 %; Site Drawn RIGHT BRACHIAL; Total Hemoglobin 11.2 g/dL (12.0-18.0); pH ABG 7.459 (7.350-7.450)
[2020-03-30 21:00] VITALS: BP 167/104; PULSE 81; PULSE 85; RESP 20; O2SAT 97
[2020-03-30 21:15] LABS: Basophils Percent Auto 0.4 % (0.2-1.2); Eosinophils Absolute Auto 0.2 K/mm3 (0-0.3); Eosinophils Percent Auto 2.3 % (0-4.4); Hematocrit 31.9 % (37.0-47.0); Hemoglobin 10.4 g/dL (12.0-15.0); Immature Granulocyte Absolute 0.01 K/mm3 (0.00-0.031); Immature Granulocyte Percent A 0.1 % (0-0.5); Immature Platelet Fraction Pct 10.5 % (0.9-11.2); Lymphocytes Absolute Auto 2.16 K/mm3 (0.9-3.2); Lymphocytes Percent Auto 30.8 % (18.3-44.2); Mean Corpuscular HGB Conc 32.6 g/dl (32-36); Mean Corpuscular Hemoglobin 30.9 pg (26-34); Mean Corpuscular Volume 94.7 fl (80-100); Mean Platelet Volume 13.8 fl (7.4-10.4); Monocytes Absolute Auto 0.9 K/mm3 (0.1-0.6); Monocytes Percent Auto 12.1 % (2.6-8.5); Neutrophils Absolute Auto 3.8 K/mm3 (1.3-6.7); Neutrophils Percent Auto 54.3 % (45.5-73.1); Platelet Count Result 179 k/mm3 (150-375); Red Blood Count 3.37 M/mm3 (4.2-5.4); Red Cell Distribution Width 15.8 % (11.5-14.5)
[2020-03-30 21:26] LABS: Magnesium 1.9 mg/dL (1.6-2.3)
[2020-03-30 21:29] LABS: Prothrombin Time 13.2 Seconds (11.1-14.7)
[2020-03-30 21:30] VITALS: O2SAT 98
[2020-03-30 21:30] LABS: Partial Thromboplastin Time 26.6 SECONDS (22.3-36.8)
[2020-03-30 21:30] LABS: Alanine Aminotransferase 20 U/L (4-35); Albumin Level 3.8 g/dL (3.5-5.1); Alkaline Phosphatase 56 U/L (38-126); Anion Gap 7 mmol/L (8-16); Aspartate Amino Transferase 35 U/L (14-36); Bilirubin,Total 0.5 mg/dL (0.2-1.3); Blood Urea Nitrogen 27 mg/dL (7-17); Calcium 8.9 mg/dL (8.4-10.2); Carbon Dioxide 27 mmol/L (22-30); Chloride 101 mmol/L (98-107); Estimated CRCL calculation 45 ml/min; Estimated Glomerular Filt Rate 41; Glucose 282 mg/dL (65-105); Potassium 4.5 mmol/L (3.4-5.0); Sodium 135 mmol/L (137-145)
[2020-03-30 21:40] LABS: NT Pro B Type Natriuretic Pept 1610 PG/ML (5-100); Troponin I 0.075 ng/mL (0.000-0.034)
[2020-03-30 21:47] LABS: D Dimer 2.62 ug/mL (<0.48)
[2020-03-30 22:00] VITALS: BP 153/66; PULSE 81; RESP 15; O2SAT 100
--- NOTE | 2020-03-30 22:51 | ED.SOB ---
HPI - SOB/Dyspnea General Chief Complaint: Shortness of Breath/Dyspnea Stated Complaint: sob Time Seen by Provider: 03/30/20 20:12 Source: patient Mode of arrival: ambulatory Limitations: no limitations History of Present Illness HPI Narrative: 69 years old -[place] female presents with increasing shortness of breath which started on February 12. Patient also complaining of swelling all over mainly lower extremities. Patient denies any fever, chills, nausea, vomiting, coughing, or chest pain. History of hypertension, diabetes, asthma, CVA, thyroidectomy. Patient does not smoke or drink. Patient had Lasix 40 mg once a day, also on baby aspirin. Related Data Home Medications Medication Instructions Recorded Confirmed furosemide 40 mg tablet 40 mg PO QAM 07/02/19 03/26/20 potassium chloride 20 mEq 20 meq PO DAILY 07/02/19 03/26/20 tablet,extended release(part/cryst) insulin lispro [Humalog KwikPen See Protocol SUBCUT ACHS 11/14/19 03/26/20 Insulin] omeprazole 40 mg PO DAILY 11/14/19 03/26/20 spironolactone 50 mg PO DAILY 11/14/19 03/26/20 Allergies Allergy/AdvReac Type Severity Reaction Status Date / Time [id number]-[id number]-Btj Reductase Allergy Mild Cramping Verified 03/10/20 16:09 Inhibitor of the Muscles Penicillins Allergy Itching Verified 03/10/20 16:09 Review of Systems Review of Systems: Narrative: CONSTITUTIONAL: Denies fever, chills, or sweats. EYES: Denies visual changes, redness, or discharge. ENT: Denies rhinorrhea, congestion, sore throat, or otalgia. CARDIOVASCULAR: Denies chest pain, palpitations, or edema. RESPIRATORY: Denies cough or dyspnea. GASTROINTESTINAL: Denies abdominal pain, nausea, vomiting, or diarrhea. GENITOURINARY: Denies dysuria or hematuria. SKIN: Denies rash or itching. MUSCULOSKELETAL: Denies back pain, joint pain, or myalgia. NEUROLOGIC: Denies headache, numbness, or weakness. PSYCHIATRIC: Denies anxiety or depression. [facility] Past Medical History Medical History (Updated 03/30/20 @ 23:14 by Debbie Izquierdo DO) Dyslipidemia Essential hypertension Grade II diastolic dysfunction History of CVA (cerebrovascular accident) Severe pulmonary arterial systolic hypertension Type 2 diabetes mellitus with hyperglycemia Surgical History Surgical History H/O thyroidectomy Hx of tonsillectomy Family History Family History Other Cerebrovascular accident Diabetes mellitus Family history of arthritis Family history of cardiovascular disease Hypertension Social History Social History Smoking status: Never smoker Alcohol intake: never Substance use: never Substance use type: does not use Gender identity (if verbalized by the patient): Female Spiritual care concerns: No Exam Narrative: Exam Narrative: General appearance: Well-developed, well-nourished Skin: Normal color, 3+ edema bilaterally up to the knees. Head: Normocephalic, nontraumatic, Eyes: Clear conjunctiva ENT: Oropharynx normal, ears normal, nose normal Neck: Supple, nontender Chest and respiratory: Airway patent, no respiratory distress, no accessory muscle use Heart: Regular rate/rhythm Abdomen: Soft, nontender, no organomegaly, quiet bowel sounds Vascular: Normal peripheral pulses, normal capillary refill. Musculoskeletal: Normal range of motion, nontender back Neurologic: Alert and oriented ?3, LABOR TRAINING MANAGER is normal as tested, no gross motor deficit Course Course Emergency Course: Stable Vital Signs Vital signs: Vital Signs Temperature 36.3 C L 03/30/20
[2020-03-30 23:00] VITALS: BP 149/84; PULSE 81; RESP 19; O2SAT 100
[2020-03-30] MEDS: FUROSEMIDE INJ 40 MG/4 ML VIAL IV PUSH (23:29)
[2020-03-31] VITALS (15 sets, daily range): BP systolic 120–168; BP diastolic 47–90; PULSE 70–90; RESP 14–20; TEMP 36.2–36.8; O2SAT 94–100; BMI 48.4
[2020-03-31 01:24] LABS: Troponin I 0.076 ng/mL (0.000-0.034)
--- NOTE | 2020-03-31 01:33 | ADMGEN ---
This patient, Katlin Calles, was admitted to IMU Room 201-01. Patient/family oriented to hospital policies and general routines including ID bracelet, bed and alarms, visiting hours, pain management, procedures, bathroom and other care routines, personal items, smoking policy, room service/diet, and visiting hours. Valuables list has been completed. Information on how to activate the Rapid Response Team has been discussed. Patient/Family are encouraged to report perceived risks to care and to ask questions if they do not understand what they are told or what they should do.
[2020-03-31] MEDS: NITROGLYCERIN OINTMENT 1 INCH DOSE TRANSDERM (03:04)
[2020-03-31 03:57] LABS: Troponin I 0.082 ng/mL (0.000-0.034)
[2020-03-31] MEDS: FUROSEMIDE INJ 40 MG/4 ML VIAL IV PUSH (09:07)
[2020-03-31] MEDS: ASPIRIN 81 MG CHEWABLE TABLET PO (09:07)
[2020-03-31] MEDS: GABAPENTIN 400 MG CAPSULE PO ×3 (09:55→17:08)
[2020-03-31] MEDS: FLUTICASONE PROPIONATE 0.05% NA SPR 16 GM BTL (*BKC) 1 SPRAY NASAL (09:55)
[2020-03-31] MEDS: PANTOPRAZOLE 40 MG TABLET PO ×2 (09:57→20:47)
[2020-03-31] MEDS: SPIRONOLACTONE 50 MG TABLET PO (09:57)
[2020-03-31] MEDS: LOSARTAN POTASSIUM 100 MG TABLET PO (09:58)
[2020-03-31] MEDS: POTASSIUM CHLORIDE 20 MEQ TABLET.ER PO (09:58)
[2020-03-31 12:48] LABS: Glucose Point of Care 345 (65-105)
[2020-03-31] MEDS: INSULIN ASPART (*BKC) 100 UNITS/ML SUB-Q ×3 (13:17→17:09)
[2020-03-31 16:56] LABS: Glucose Point of Care 194 (65-105)
--- NOTE | 2020-03-31 17:05 | PM.IMHP ---
H&P: HPI History of Present Illness Date/Time: 03/31/20 17:05 Chief complaint: CHF, elevated troponin, trigeminy Narrative: date of visit 829 Katlin Calles is a 69 year old female with hypertension type 2 diabetes who presented to the emergency room with complaints of right-sided chest discomfort described as burning sensation accompanied with some shortness of breath and weakness. She was hospitalized the 1st week of February with similar presentation and had a extensive workup including CTA of the chest and abdomen, echocardiogram, and EGD. Pain was thought to be neuropathic possibly secondary to post herpetic neuralgia and was treated as such. She relates that it has never totally gone away has worsened the last 2-3 days with increasing shortness of breath and edema. She states she has gained 10-15 lb over the last month. No fever no chills and no cough Review of Systems Review of Systems: Narrative: constitutional weight increases stated appetite has been fair and no fever Eye no double vision or scotoma mouth no pharyngitis laryngitis pulmonary no wheezing or cough chest shortness of breath CV no palpitations no dysuria no hematuria muscle skeletal no joint discomfort integument no skin breakdown rashes neuropsych no seizures or syncope past CVA with some residual left-sided weakness psych affect appropriate PMFSH Past Medical History Medical History (Updated 03/31/20 @ 17:16 by Jakub Hassan MD) Dyslipidemia Essential hypertension Grade II diastolic dysfunction History of CVA (cerebrovascular accident) Severe pulmonary arterial systolic hypertension Type 2 diabetes mellitus with hyperglycemia Surgical History Surgical History H/O thyroidectomy Hx of tonsillectomy Family History Family History (Updated 03/31/20 @ 17:09 by Jakub Hassan MD) Mother , age 80, congestive heart failure Heart disease Other Cerebrovascular accident Diabetes mellitus Family history of arthritis Family history of cardiovascular disease Hypertension Social History Social History (Updated 03/31/20 @ 17:10 by Jakub Hassan MD) Social History: lives with her fiance and has no children Smoking status: Never smoker Second hand tobacco smoke exposure: Yes Alcohol intake: never Substance use: never Substance use type: does not use Gender identity (if verbalized by the patient): Male Spiritual care concerns: No Meds Home Medications and Allergies Home Medications Medication Instructions Recorded Confirmed Type furosemide 40 mg tablet 40 mg PO QAM 07/02/19 03/31/20 History potassium chloride 20 mEq 20 meq PO DAILY 07/02/19 03/31/20 History tablet,extended release(part/cryst) gabapentin 300 mg capsule 300 mg PO TID #90 cap 09/15/19 03/31/20 Rx losartan 100 mg tablet 100 mg PO DAILY #90 tablet 11/10/19 03/31/20 Rx insulin lispro [Humalog KwikPen See Protocol SUBCUT ACHS 11/14/19 03/31/20 History Insulin] omeprazole 40 mg PO DAILY 11/14/19 03/31/20 History spironolactone 50 mg PO DAILY 11/14/19 03/31/20 History insulin glargine 100 unit/mL (3 50 unit SUB-Q QPM 90 Days #45 ml 02/04/20 03/31/20 Rx mL) subcutaneous pen acyclovir 800 mg PO 5 TIMES DAILY #70 tablet 02/18/20 03/31/20 Rx albuterol sulfate 2 puff INHALATION QID PRN #6.7 gm 02/18/20 03/31/20 Rx aspirin [Children's Aspirin] 81 mg PO DAILY@0800 #30 tablet 02/18/20 03/31/20 Rx fluticasone propionate 50 1 spray NASAL DAILY #15.8 ml 03/23/20 03/31/20 Rx mcg/actuation nasal spray,suspension Allergies Allergy/AdvReac Type Severity Reaction Status Date / Time Eqlqadj-Cyh-Ita Reductase Allergy Mild Cramping Verified 03/10/20 16:09 Inhibitor of the Muscles Penicillins Allergy Itching Verified 03/10/20 16:09 Vital Signs Vital Signs - 24 hr 03/30/20 19:58 03/30/20 21:00 03/30/20 21:30 Temperature 36.3 C L P
[2020-03-31 17:37] LABS: Add Urine Microscopic? YES; Appearance Urine Clear (Clear); Bacteria Urine Trace /hpf; Bilirubin Urine Negative (Negative); Blood Urine Negative (Negative); Color Urine Straw (Yellow); Glucose Urine UA 3+ mg/dL (Negative); Ketones Urine Negative (Negative); Leukocyte Esterase Ur Negative LEU/UL (NEGATIVE); Nitrate Urine Negative (Negative); Protein Urine Negative (Negative); RBC Urine 0-2 /hpf (0-2); Specific Grav Ur 1.008 (1.001-1.035); Squamous Epithelial Cell Urine Rare /hpf (Few); Urobilinogen Urine Negative mg/dL (<2.0); WBC Urine 0-3 /hpf (0-3)
--- NOTE | 2020-03-31 18:10 | PC.NURSE ---
This patient, Katlin Calles, was received from IMU on 03/31/20 at 1805. Personal belongings list checked and signed. Patient/family oriented to unit policies and routines
--- NOTE | 2020-03-31 18:26 | PC.NURSE ---
Patient refused bed alarm. Reviewed fall precautions. Patient acknowledged understanding. Patient continues to refuse bed alarm. Bed alarm off.
[2020-03-31] MEDS: CYCLOBENZAPRINE HCL 10 MG TABLET PO (18:42)
[2020-03-31] MEDS: ENOXAPARIN 40 MG/0.4 ML SYRINGE SUB-Q (20:46)
[2020-03-31] MEDS: INSULIN GLARGINE (*BKC) 100 UNITS/ML 50 UNITS SUB-Q (20:47)
[2020-03-31 20:52] LABS: Glucose Point of Care 161 (65-105)
--- NOTE | 2020-03-31 21:20 | PC.NURSE ---
Pt still refusing bed alarm. Education given on safety precautions. Bed alarm remains off.
[2020-04-01] VITALS (8 sets, daily range): BP systolic 121–167; BP diastolic 50–73; PULSE 64–88; RESP 14–18; TEMP 36.1–36.8; O2SAT 95–100
[2020-04-01 06:13] LABS: Anion Gap 6 mmol/L (8-16); Blood Urea Nitrogen 30 mg/dL (7-17); Calcium 8.5 mg/dL (8.4-10.2); Carbon Dioxide 28 mmol/L (22-30); Chloride 104 mmol/L (98-107); Estimated CRCL calculation 38 ml/min; Estimated Glomerular Filt Rate 34; Glucose 174 mg/dL (65-105); Magnesium 1.9 mg/dL (1.6-2.3); Sodium 138 mmol/L (137-145)
[2020-04-01 07:38] LABS: Glucose Point of Care 132 (65-105)
[2020-04-01] MEDS: ASPIRIN 81 MG CHEWABLE TABLET PO (08:18)
[2020-04-01] MEDS: GABAPENTIN 400 MG CAPSULE PO ×3 (08:18→16:31)
[2020-04-01] MEDS: POTASSIUM CHLORIDE 20 MEQ TABLET.ER PO (08:18)
[2020-04-01] MEDS: SPIRONOLACTONE 50 MG TABLET PO (08:18)
[2020-04-01] MEDS: PANTOPRAZOLE 40 MG TABLET PO ×2 (08:19→20:49)
[2020-04-01] MEDS: LOSARTAN POTASSIUM 100 MG TABLET PO (08:19)
[2020-04-01] MEDS: FLUTICASONE PROPIONATE 0.05% NA SPR 16 GM BTL (*BKC) 1 SPRAY NASAL (08:19)
[2020-04-01] MEDS: FUROSEMIDE INJ 40 MG/4 ML VIAL IV PUSH (08:20)
[2020-04-01] MEDS: INSULIN ASPART (*BKC) 100 UNITS/ML SUB-Q ×4 (08:21→16:33)
[2020-04-01 11:55] LABS: Glucose Point of Care 246 (65-105)
--- NOTE | 2020-04-01 14:08 | PCOTNOTE ---
OT evaluation attempted. Patient working with dietary at this time. Will attempt OT eval at later time
--- NOTE | 2020-04-01 14:30 | PC.NURSE ---
On 04/01/20, the student, [ Radha Sanders], provided care and completed [facility] documentation on this patient. I have reviewed the student's documentation and agree with the findings.
--- NOTE | 2020-04-01 16:12 | PCDIET ---
Nutrition Consult for Edu Completed: Additional Notes: Pt was very sleepy today during education. Handouts and contact info provided. Pt set up for outpatient appointment to see RD for more in depth edu. Pt was not familiar with where carbs are found. We reviewed food sources and how to balance carbs at meals including adding protein to all meals and limiting g of Carbs to 45 at meals and 15 at snacks. We reviewed label reading for carbs and salt as well as foods that are low and high in salt and how to find lower salt items when shopping and reducing salt with cooking. Pt drinks water. She sometimes skips meals when she sleeps until 2:30pm on days she does not feel well. When she does eat she likes eggs, [place], toast, turkey burger sandwiches with a starch and veggies. Snacks are chips and popcorn. We will f/u weekly for any questions regarding edu and handouts.
[2020-04-01 16:24] LABS: Glucose Point of Care 184 (65-105)
--- NOTE | 2020-04-01 17:45 | PM.IMPN ---
Progress Note: A&P Assessment and Plan (1) CHF (congestive heart failure): Qualifiers: Heart failure chronicity: unspecified Heart failure type: unspecified Qualified Code(s): I50.9 - Heart failure, unspecified Code(s): I50.9 - Heart failure, unspecified Status: Acute Assessment and Plan: acute on chronic diastolic heart failure. Echo within the last 1-2 months revealed grade 2 diastolic dysfunction with normal ejection fraction is 55-60% and marked pulmonary hypertension. Controlled blood pressure and diurese IV as possible monitoring renal function (2) Elevated troponin: Code(s): R79.89 - Other specified abnormal findings of blood chemistry Status: Acute Assessment and Plan: elevated slightly but less than last visit and flat suggesting no acute coronary event probably secondary to chronic renal insufficiency (3) Pulmonary hypertension: Code(s): I27.20 - Pulmonary hypertension, unspecified Status: Acute Assessment and Plan: CTA last visit showed no pulmonary emboli. D-dimer is still slightly elevated though lower than last visit and venous Doppler is negative (4) Atypical chest pain: Code(s): R07.89 - Other chest pain Status: Acute Assessment and Plan: the pain definitely appears to be neuropathic and increased gabapentin to 400 t.i.d.. Hopefully will improve as diurese also (5) Essential hypertension: Code(s): I10 - Essential (primary) hypertension Status: Acute Assessment and Plan: pressure fair control continue the ARB and diuretic (6) Type 2 diabetes mellitus with hyperglycemia: Code(s): E11.65 - Type 2 diabetes mellitus with hyperglycemia Status: Acute Assessment and Plan: continue her along acting Lantus with a sliding scale FBS 174 today (7) Chronic renal failure, stage 3 (moderate): Code(s): N18.3 - Chronic kidney disease, stage 3 (moderate) Status: Acute Assessment and Plan: grade 3 and creatinine essentially same as previous. Monitor closely with IV diuresis creatinine at 1.8 today (8) DVT prophylaxis: Code(s): Z29.9 - Encounter for prophylactic measures, unspecified Status: Acute Assessment and Plan: Lovenox Subjective Date/time seen: 04/01/20 17:45 Interval history: date of visit 04/01. 69-year-old hypertensive type 2 diabetic admitted with right-sided chest pain, shortness of breath and increasing edema. She had extensive workup for the same approximately 1 month ago. At that time found to have diastolic heart failure and pulmonary hypertension with negative CTA of the chest. today she says she still feels short of breath and weak though some LEs edema Exam Narrative: Exam Narrative: blood pressure 122/64 pulse is 80 and regular saturating 100% on room air afebrile pupil equal reactive to light sclera anicteric neck supple lungs very faint posterior basal crackles CV regular rate rhythm no murmurs or gallops abdomen is soft nontender no masses extremities are pitting edema and arms and legs with right leg larger than left, but edema decreased from 03/31 neuro alert pleasant cooperative slight decreased strength on left as before psych affect is appropriate Objective Data Vital Signs Vital Signs: Vital Signs - 24 hr 03/31/20 18:00 03/31/20 18:12 03/31/20 18:26 Temperature 36.2 C L Pulse Rate 79 79 71 Respiratory Rate 20 18 Blood Pressure 133/90 Pulse Oximetry 100 100 03/31/20 20:00 04/01/20 00:00 04/01/20 04:00 Temperature 36.4 C L 36.1 C L 36.2 C L Pulse Rate 77 64 88 Respiratory Rate 18 18 18 Blood Pressure 150/72 H 167/50 H 144/73 H Pulse Oximetry 100 99 100 04/01/20 08:00 04/01/20 09:37 04/01/20 12:00 Temperature 36.4 C Pulse Rate 87 81 Respiratory Rate 14 14 16 Blood Pressure 127/58 L Pulse Oximetry 96 95 100 04/01/20 14:00 04/01/20 16:00 Temperature Pulse Ra
[2020-04-01] MEDS: ENOXAPARIN 40 MG/0.4 ML SYRINGE SUB-Q (20:49)
[2020-04-01] MEDS: INSULIN GLARGINE (*BKC) 100 UNITS/ML 50 UNITS SUB-Q (20:49)
[2020-04-01 22:27] LABS: Glucose Point of Care 322 (65-105)
[2020-04-02] VITALS (9 sets, daily range): BP systolic 117–155; BP diastolic 57–74; PULSE 76–81; RESP 16; TEMP 36.1–36.6; O2SAT 100
[2020-04-02 06:00] LABS: Anion Gap 8 mmol/L (8-16); Blood Urea Nitrogen 39 mg/dL (7-17); Calcium 8.8 mg/dL (8.4-10.2); Carbon Dioxide 28 mmol/L (22-30); Chloride 101 mmol/L (98-107); Estimated CRCL calculation 33 ml/min; Estimated Glomerular Filt Rate 28; Glucose 235 mg/dL (65-105); Potassium 4.5 mmol/L (3.4-5.0); Sodium 137 mmol/L (137-145)
[2020-04-02 07:51] LABS: Free T4 Free Thyroxine Reflex 1.16 ng/dL (0.78-2.19)
--- NOTE | 2020-04-02 07:56 | PC.NURSE ---
Outpatient referral started for Initial DSMT and MNT. [facility] to [facility].
[2020-04-02 08:09] LABS: Glucose Point of Care 190 (65-105)
[2020-04-02] MEDS: ASPIRIN 81 MG CHEWABLE TABLET PO (08:56)
[2020-04-02] MEDS: FLUTICASONE PROPIONATE 0.05% NA SPR 16 GM BTL (*BKC) 1 SPRAY NASAL (08:57)
[2020-04-02] MEDS: GABAPENTIN 400 MG CAPSULE PO ×3 (08:57→16:40)
[2020-04-02] MEDS: PANTOPRAZOLE 40 MG TABLET PO ×2 (08:58→22:19)
[2020-04-02] MEDS: LOSARTAN POTASSIUM 50 MG TABLET PO (08:59)
[2020-04-02] MEDS: INSULIN ASPART (*BKC) 100 UNITS/ML SUB-Q ×5 (09:00→16:42)
[2020-04-02 09:37] LABS: Total Triiodothyronine (T3) 1.08 NG/ML (0.97-1.69)
--- NOTE | 2020-04-02 10:53 | PCPTNOTE ---
Attempted PT evaluation ~ 10:45, pt refused, stating she was short of breath. Discussed pt with Lisa LOYA- she has called respiratory therapy for a treatment for her breathing.
[2020-04-02 12:10] LABS: Glucose Point of Care 245 (65-105)
[2020-04-02 16:40] LABS: Glucose Point of Care 228 (65-105)
--- NOTE | 2020-04-02 17:52 | PM.IMPN ---
Progress Note: A&P Assessment and Plan (1) CHF (congestive heart failure): Qualifiers: Heart failure chronicity: unspecified Heart failure type: unspecified Qualified Code(s): I50.9 - Heart failure, unspecified Code(s): I50.9 - Heart failure, unspecified Status: Acute Assessment and Plan: acute on chronic diastolic heart failure. Echo within the last 1-2 months revealed grade 2 diastolic dysfunction with normal ejection fraction is 55-60% and marked pulmonary hypertension. Controlled blood pressure and diurese IV as possible but hold lasix today with rising creatinine (2) Elevated troponin: Code(s): R79.89 - Other specified abnormal findings of blood chemistry Status: Acute Assessment and Plan: elevated slightly but less than last visit and flat suggesting no acute coronary event probably secondary to chronic renal insufficiency (3) Pulmonary hypertension: Code(s): I27.20 - Pulmonary hypertension, unspecified Status: Acute Assessment and Plan: CTA last visit showed no pulmonary emboli. D-dimer is still slightly elevated though lower than last visit and venous Doppler is negative (4) Atypical chest pain: Code(s): R07.89 - Other chest pain Status: Acute Assessment and Plan: the pain definitely appears to be neuropathic and increased gabapentin to 400 t.i.d.. Hopefully will improve as diurese also (5) Essential hypertension: Code(s): I10 - Essential (primary) hypertension Status: Acute Assessment and Plan: pressure fair control continue the ARB and diuretic (6) Type 2 diabetes mellitus with hyperglycemia: Code(s): E11.65 - Type 2 diabetes mellitus with hyperglycemia Status: Acute Assessment and Plan: continue her along acting Lantus with a sliding scale FBS 190 today (7) Chronic renal failure, stage 3 (moderate): Code(s): N18.3 - Chronic kidney disease, stage 3 (moderate) Status: Acute Assessment and Plan: grade 3 and creatinine essentially same as previous. Monitor closely with IV diuresis creatinine at 2.1 today with elevated Bun probable all secondary to diuresis but will check renal US (8) DVT prophylaxis: Code(s): Z29.9 - Encounter for prophylactic measures, unspecified Status: Acute Assessment and Plan: Lovenox Subjective Date/time seen: 04/02/20 17:52 Interval history: date of visit 04/02. 69-year-old hypertensive type 2 diabetic admitted with right-sided chest pain, shortness of breath and increasing edema. She had extensive workup for the same approximately 1 month ago. At that time found to have diastolic heart failure and pulmonary hypertension with negative CTA of the chest. today she says she still feels short of breath and weak though edema some better Exam Narrative: Exam Narrative: blood pressure 154/74 pulse is 76 and regular saturating 100% on room air afebrile pupil equal reactive to light sclera anicteric neck supple lungs very faint posterior basal crackles as before CV regular rate rhythm no murmurs or gallops abdomen is soft nontender no masses extremities minimal edema of legs now and none of arms neuro alert pleasant cooperative slight decreased strength on left as before psych affect is appropriate but tearfull Objective Data Vital Signs Vital Signs: Vital Signs - 24 hr 04/01/20 20:00 04/02/20 00:00 04/02/20 04:00 Temperature 36.8 C Pulse Rate 74 76 81 Respiratory Rate 16 Blood Pressure 144/53 H Pulse Oximetry 100 04/02/20 06:28 04/02/20 08:00 04/02/20 09:00 Temperature 36.1 C L Pulse Rate 78 76 Respiratory Rate 16 16 Blood Pressure 117/61 Pulse Oximetry 100 100 04/02/20 09:09 04/02/20 12:00 04/02/20 16:00 Temperature 36.3 C L Pulse Rate 79 78 79 Respiratory Rate 16 Blood Pressure 149/60 H 155/74 H Pulse Oximetry 100 Intake/Output Intake/Output:
[2020-04-02] MEDS: ALBUTEROL SULFATE NEB 2.5 MG/0.5 ML INH 5 MG INHALATION (20:07)
[2020-04-02] MEDS: INSULIN GLARGINE (*BKC) 100 UNITS/ML 50 UNITS SUB-Q (22:18)
[2020-04-02] MEDS: ENOXAPARIN 40 MG/0.4 ML SYRINGE SUB-Q (22:18)
[2020-04-02 23:20] LABS: Glucose Point of Care 377 (65-105)
[2020-04-03] VITALS (10 sets, daily range): BP systolic 125–138; BP diastolic 46–55; PULSE 66–89; RESP 14–21; TEMP 36.4–36.6; O2SAT 98–100
[2020-04-03] MEDS: ALBUTEROL SULFATE NEB 2.5 MG/0.5 ML INH 5 MG INHALATION ×4 (01:15→21:16)
[2020-04-03 07:55] LABS: Anion Gap 8 mmol/L (8-16); Blood Urea Nitrogen 39 mg/dL (7-17); Calcium 8.8 mg/dL (8.4-10.2); Carbon Dioxide 25 mmol/L (22-30); Chloride 102 mmol/L (98-107); Estimated CRCL calculation 34 ml/min; Estimated Glomerular Filt Rate 30; Glucose 205 mg/dL (65-105); Potassium 4.3 mmol/L (3.4-5.0); Sodium 135 mmol/L (137-145)
[2020-04-03 08:13] LABS: Glucose Point of Care 191 (65-105)
[2020-04-03] MEDS: FLUTICASONE PROPIONATE 0.05% NA SPR 16 GM BTL (*BKC) 1 SPRAY NASAL (08:13)
[2020-04-03] MEDS: LOSARTAN POTASSIUM 50 MG TABLET PO (08:13)
[2020-04-03] MEDS: GABAPENTIN 400 MG CAPSULE PO ×3 (08:13→16:49)
[2020-04-03] MEDS: PANTOPRAZOLE 40 MG TABLET PO ×2 (08:13→21:21)
[2020-04-03] MEDS: ASPIRIN 81 MG CHEWABLE TABLET PO (08:13)
[2020-04-03] MEDS: INSULIN ASPART (*BKC) 100 UNITS/ML SUB-Q ×4 (08:37→16:51)
[2020-04-03] MEDS: polyethylene glycoL 3350 17 GM POWD.PACK PO (09:49)
--- NOTE | 2020-04-03 14:30 | PM.IMPN ---
Progress Note: A&P Assessment and Plan (1) CHF (congestive heart failure): Qualifiers: Heart failure chronicity: unspecified Heart failure type: unspecified Qualified Code(s): I50.9 - Heart failure, unspecified Code(s): I50.9 - Heart failure, unspecified Status: Acute Assessment and Plan: acute on chronic diastolic heart failure. Echo within the last 1-2 months revealed grade 2 diastolic dysfunction with normal ejection fraction of 55-60% and marked pulmonary hypertension. Controlled blood pressure and diurese as possible but held lasix with rising creatinine (2) Elevated troponin: Code(s): R79.89 - Other specified abnormal findings of blood chemistry Status: Acute Assessment and Plan: elevated slightly but less than last visit and flat suggesting no acute coronary event probably secondary to chronic renal insufficiency (3) Pulmonary hypertension: Code(s): I27.20 - Pulmonary hypertension, unspecified Status: Acute Assessment and Plan: CTA last visit showed no pulmonary emboli. D-dimer is still slightly elevated though lower than last visit and venous Doppler is negative Pt relates negative sleep study in past (4) Atypical chest pain: Code(s): R07.89 - Other chest pain Status: Acute Assessment and Plan: the pain definitely appears to be neuropathic and increased gabapentin to 400 t.i.d.. Hopefully will improve (5) Essential hypertension: Code(s): I10 - Essential (primary) hypertension Status: Acute Assessment and Plan: pressure fair control continue the ARB (6) Type 2 diabetes mellitus with hyperglycemia: Code(s): E11.65 - Type 2 diabetes mellitus with hyperglycemia Status: Acute Assessment and Plan: continue her along acting Lantus with a sliding scale FBS 205 today (7) Chronic renal failure, stage 3 (moderate): Code(s): N18.3 - Chronic kidney disease, stage 3 (moderate) Status: Acute Assessment and Plan: grade 3 and creatinine essentially same as previous. creatinine at 2.0 today with elevated Bun probable all secondary to diuresis and renal US normal. will get nephrology opinion about diuretics (8) DVT prophylaxis: Code(s): Z29.9 - Encounter for prophylactic measures, unspecified Status: Acute Assessment and Plan: Lovenox Subjective Date/time seen: 04/03/20 14:30 Interval history: date of visit 04/03. 69-year-old hypertensive type 2 diabetic admitted with right-sided chest pain, shortness of breath and increasing edema. She had extensive workup for the same approximately 1 month ago. At that time found to have diastolic heart failure and pulmonary hypertension with negative CTA of the chest. today she says she still feels short of breath and weak. Scared about her renal function Exam Narrative: Exam Narrative: blood pressure 126/74 pulse is 82 and regular saturating 100% on room air afebrile pupil equal reactive to light sclera anicteric neck supple lungs clear CV regular rate rhythm no murmurs or gallops abdomen is soft nontender no masses extremities minimal edema of legs now and none of arms neuro alert pleasant cooperative slight decreased strength on left as before psych affect is appropriate Objective Data Vital Signs Vital Signs: Vital Signs - 24 hr 04/02/20 16:00 04/02/20 20:00 04/03/20 00:00 Temperature 36.3 C L 36.6 C 36.4 C Pulse Rate 79 76 82 Respiratory Rate 16 16 16 Blood Pressure 155/74 H 135/57 L 138/55 L Pulse Oximetry 100 100 98 04/03/20 04:00 04/03/20 04:19 04/03/20 08:00 Temperature 36.6 C Pulse Rate 89 85 80 Respiratory Rate 18 18 Blood Pressure 136/54 L Pulse Oximetry 100 100 04/03/20 14:10 Temperature 36.6 C Pulse Rate 83 Respiratory Rate 14 Blood Pressure 127/53 L Pulse Oximetry 100 Intake/Output Intake/Output: Intake & Output 03/31/20 04/01/2003/23
--- NOTE | 2020-04-03 15:26 | PM.CNNEP ---
Assessment and Plan Assessment and plan (1) Chronic kidney disease, stage 3: Code(s): N18.3 - Chronic kidney disease, stage 3 (moderate) Status: Chronic (2) Pulmonary hypertension: Code(s): I27.20 - Pulmonary hypertension, unspecified Status: Acute (3) Atypical chest pain: Code(s): R07.89 - Other chest pain Status: Acute (4) Essential hypertension: Code(s): I10 - Essential (primary) hypertension Status: Acute (5) Type 2 diabetes mellitus with hyperglycemia: Code(s): E11.65 - Type 2 diabetes mellitus with hyperglycemia Status: Acute (6) CHF (congestive heart failure): Qualifiers: Heart failure chronicity: unspecified Heart failure type: unspecified Qualified Code(s): I50.9 - Heart failure, unspecified Code(s): I50.9 - Heart failure, unspecified Status: Acute Assessment and Plan: . Additional Plan Katlin has an elevated creatinine that appears to be consistent with chronic kidney disease. I suspect her kidney disease is secondary to her extensive history of hypertension diabetes, both these conditions she has had for at least 20+ years. I also suspect she has a component of chronic prerenal azotemia secondary to right-sided heart failure from her pulmonary hypertension and presumable obstructive sleep apnea. This would likely explain why the use of IV diuretic therapy has resulted in some rise in her BUN and creatinine since her admission. Unfortunately, I suspect this may be a situation where we may have to accept a higher creatinine in effort to maintain stability in her respiratory/ volume status. However, my hope would be that if better treatment of her pulmonary hypertension and treatment of her obstructive sleep apnea (if she has this formal diagnosis) may improve her overall symptoms and volume status as well. On the off chance that there may be some other factor playing a role with regard to her lower extremity swelling, I will check urine electrolytes, urine eosinophils, random urine to protein creatinine ratio, an SPEP and UPEP as I would have concerns that she may have some proteinuria playing a role as well. If her kidney function continues to deteriorate that I will pursue further serological testing to ensure she does not have any other intrinsic, infiltrative, or inflammatory disease affecting her kidneys. Her renal ultrasound demonstrates no significant anatomical pathology. I will continue follow the patient with you while she remains hospitalized and make further recommendations during her hospital course. Thank you for allowing me to participate in the care of this patient. History of Present Illness Reason for Consult Consult date: 04/03/20 Reason for consult: chronic renal failure Chief Complaint Chief complaint: CHF, elevated troponin, trigeminy History of Present Illness Narrative: The patient is a 69 year old Americal female with a past medical history as outlined below who presented to [facility] ER with complaints of chest discomfort, shortness of breath, and weakness. She states the chest pain was right sideded and describes it as a burning sensation; she states the shortness of breath and weakness are more associated symptoms. It should be noted that she was just hospitalized earlier this month for almost the exact same symptoms. She has a fairly extensive workup and evaluation including CTA of the chest and abdomen, echocardiogram, and EGD with the final diagnosis thought to be neuropathic possibly secondary to post herpetic neuralgia. However, she states the symptoms have never fully resolved. She reports new symptoms with weight gaint and increase in lower extremity edema but denies any fever or chills. Workup and evaluation in the emergency room demonstrated the patient to be hemodynamically stable and routine blood tests were significant for a mildly elevated creatinine in comparison to
[2020-04-03 16:46] LABS: Glucose Point of Care 124 (65-105)
[2020-04-03 16:46] LABS: Glucose Point of Care 220 (65-105)
[2020-04-03] MEDS: BISACODYL 5 MG TABLET EC PO (17:34)
[2020-04-03] MEDS: INSULIN GLARGINE (*BKC) 100 UNITS/ML 50 UNITS SUB-Q (21:21)
[2020-04-03] MEDS: ENOXAPARIN 40 MG/0.4 ML SYRINGE SUB-Q (21:21)
[2020-04-03 21:29] LABS: Glucose Point of Care 189 (65-105)
[2020-04-04] VITALS (17 sets, daily range): BP systolic 102–164; BP diastolic 52–84; PULSE 57–95; RESP 14–21; TEMP 36.2–36.8; O2SAT 99–100
[2020-04-04 02:25] LABS: Creatinine Urine 195.8 mg/dL; Total Protein Urine Random 14 mg/dL
[2020-04-04] MEDS: ALBUTEROL SULFATE NEB 2.5 MG/0.5 ML INH 5 MG INHALATION ×4 (02:36→19:46)
[2020-04-04 06:25] LABS: Basophils Percent Auto 0.4 % (0.2-1.2); Eosinophils Absolute Auto 0.2 K/mm3 (0-0.3); Hematocrit 26.8 % (37.0-47.0); Hemoglobin 8.7 g/dL (12.0-15.0); Immature Granulocyte Absolute 0.02 K/mm3 (0.00-0.031); Immature Granulocyte Percent A 0.3 % (0-0.5); Immature Platelet Fraction Pct 9.5 % (0.9-11.2); Lymphocytes Absolute Auto 2.39 K/mm3 (0.9-3.2); Lymphocytes Percent Auto 35.8 % (18.3-44.2); Mean Corpuscular HGB Conc 32.5 g/dl (32-36); Mean Corpuscular Hemoglobin 30.6 pg (26-34); Mean Corpuscular Volume 94.4 fl (80-100); Mean Platelet Volume 13.3 fl (7.4-10.4); Monocytes Absolute Auto 0.9 K/mm3 (0.1-0.6); Monocytes Percent Auto 13.6 % (2.6-8.5); Neutrophils Absolute Auto 3.1 K/mm3 (1.3-6.7); Neutrophils Percent Auto 46.9 % (45.5-73.1); Platelet Count Result 164 k/mm3 (150-375); Red Blood Count 2.84 M/mm3 (4.2-5.4); Red Cell Distribution Width 15.3 % (11.5-14.5); White Blood Count 6.7 K/mm3 (4.5-10.0)
[2020-04-04 06:37] LABS: Albumin Level 3.4 g/dL (3.5-5.1); Anion Gap 9 mmol/L (8-16); Blood Urea Nitrogen 46 mg/dL (7-17); Calcium 8.2 mg/dL (8.4-10.2); Carbon Dioxide 24 mmol/L (22-30); Chloride 101 mmol/L (98-107); Estimated CRCL calculation 30 ml/min; Estimated Glomerular Filt Rate 25; Glucose 194 mg/dL (65-105); Phosphorus 4.5 mg/dL (2.5-4.5); Potassium 4.2 mmol/L (3.4-5.0); Sodium 134 mmol/L (137-145)
[2020-04-04] MEDS: INSULIN ASPART (*BKC) 100 UNITS/ML SUB-Q ×4 (08:34→17:10)
[2020-04-04 08:48] LABS: Glucose Point of Care 159 (65-105)
[2020-04-04] MEDS: GABAPENTIN 400 MG CAPSULE PO ×3 (09:44→18:40)
[2020-04-04] MEDS: ASPIRIN 81 MG CHEWABLE TABLET PO (09:44)
[2020-04-04] MEDS: LOSARTAN POTASSIUM 50 MG TABLET PO (09:44)
[2020-04-04] MEDS: FLUTICASONE PROPIONATE 0.05% NA SPR 16 GM BTL (*BKC) 1 SPRAY NASAL (09:45)
[2020-04-04] MEDS: PANTOPRAZOLE 40 MG TABLET PO ×2 (09:45→21:15)
--- NOTE | 2020-04-04 11:49 | PC.NURSE ---
1020 Patient denies need for staff to call a family member about fall.
[2020-04-04] MEDS: ALBUTEROL SULFATE (*SP) AEROSOL 1 PUFF 2 PUFF INHALATION (12:18)
[2020-04-04 14:15] LABS: Glucose Point of Care 173 (65-105)
[2020-04-04] MEDS: BISACODYL 5 MG TABLET EC 10 MG PO (14:33)
--- NOTE | 2020-04-04 15:00 | PCPTNOTE ---
The patient treatment was not able to be completed today due to patient having change in medical status and testing.
--- NOTE | 2020-04-04 15:25 | PM.IMPN ---
Progress Note: A&P Assessment and Plan (1) CHF (congestive heart failure): Qualifiers: Heart failure chronicity: unspecified Heart failure type: unspecified Qualified Code(s): I50.9 - Heart failure, unspecified Code(s): I50.9 - Heart failure, unspecified Status: Acute Assessment and Plan: acute on chronic diastolic heart failure. Echo within the last 1-2 months revealed grade 2 diastolic dysfunction with normal ejection fraction of 55-60% and marked pulmonary hypertension. Controlled blood pressure and diurese as possible but held lasix with rising creatinine (2) Elevated troponin: Code(s): R79.89 - Other specified abnormal findings of blood chemistry Status: Acute Assessment and Plan: elevated slightly but less than last visit and flat suggesting no acute coronary event probably secondary to chronic renal insufficiency (3) Pulmonary hypertension: Code(s): I27.20 - Pulmonary hypertension, unspecified Status: Acute Assessment and Plan: CTA last visit showed no pulmonary emboli. D-dimer is still slightly elevated though lower than last visit and venous Doppler is negative Pt relates negative sleep study in past (4) Atypical chest pain: Code(s): R07.89 - Other chest pain Status: Acute Assessment and Plan: the pain definitely appears to be neuropathic and increased gabapentin to 400 t.i.d.. Hopefully will improve (5) Essential hypertension: Code(s): I10 - Essential (primary) hypertension Status: Acute Assessment and Plan: pressure fair control continue the ARB (6) Type 2 diabetes mellitus with hyperglycemia: Code(s): E11.65 - Type 2 diabetes mellitus with hyperglycemia Status: Acute Assessment and Plan: continue her along acting Lantus with a sliding scale FBS 190 today (7) Chronic renal failure, stage 3 (moderate): Code(s): N18.3 - Chronic kidney disease, stage 3 (moderate) Status: Acute Assessment and Plan: grade 3 and creatinine essentially same as previous. creatinine at 2.3 today with elevated Bun probable all secondary to diuresis and renal US normal. nephrology following (8) DVT prophylaxis: Code(s): Z29.9 - Encounter for prophylactic measures, unspecified Status: Acute Assessment and Plan: Lovenox Subjective Date/time seen: 04/04/20 15:25 Interval history: date of visit 04/04. 69-year-old hypertensive type 2 diabetic admitted with right-sided chest pain, shortness of breath and increasing edema. She had extensive workup for the same approximately 1 month ago. At that time found to have diastolic heart failure and pulmonary hypertension with negative CTA of the chest. today she says she still feels short of breath and weak. Scared about her renal function, and now burning sensation from right side of neck down to her right upper quadrant worsening with eating Exam Narrative: Exam Narrative: blood pressure 160/80 pulse is 78 and regular saturating 100% on room air afebrile pupil equal reactive to light sclera anicteric neck supple lungs clear CV regular rate rhythm no murmurs or gallops abdomen is soft nontender no masses extremities minimal edema of legs now and none of arms neuro alert pleasant cooperative slight decreased strength on left as before psych affect is appropriate Objective Data Vital Signs Vital Signs: Vital Signs - 24 hr 04/03/20 16:00 04/03/20 20:00 04/03/20 21:15 Temperature Pulse Rate 82 78 66 Respiratory Rate 18 Blood Pressure Pulse Oximetry 04/03/20 21:22 04/03/20 22:00 04/04/20 00:00 Temperature 36.4 C Pulse Rate 66 80 87 Respiratory Rate 18 21 H Blood Pressure 125/46 L Pulse Oximetry 100 04/04/20 02:00 04/04/20 02:36 04/04/20 04:04 Temperature 36.4 C L Pulse Rate 84 69 85 Respiratory Rate 21 H 18 Blood Pressure 122/61 Pulse Oximetry 100
--- NOTE | 2020-04-04 15:33 | PM.PNNEP ---
Progress Note: A&P Assessment and Plan (1) Chronic kidney disease, stage 3: Code(s): N18.3 - Chronic kidney disease, stage 3 (moderate) Status: Chronic Assessment and Plan: baseline creatinine seems to fluctuate ~ 1.5 - 1.8mg/dl likely secondary to HTN, DM, obesity, with likely some contribution from suspected FILI; however: - renal ultrasound normal - minimal proteinuria - UA with 1 - 3+ glucose recent fluctuations in creatinine likely due to use of diuretics and relative hypotension - systolic BP seem to run in the 150 - 160s for the most part...had been running in the 100 - 130s more recently she may have some degree or prerenal azotemia from her right sided heart failure worsened by IV diuretic use as well for completeness since creatinine higher than baseline at this time, will check serologies (2) CHF (congestive heart failure): Qualifiers: Heart failure chronicity: unspecified Heart failure type: unspecified Qualified Code(s): I50.9 - Heart failure, unspecified Code(s): I50.9 - Heart failure, unspecified Status: Acute Assessment and Plan: based on Echo, mainly diastolic/right sided suspect due to #3 from probable FILI (no formal diagnosis) -- seeing Pulmonary as an outpatient given rise in creatinine, diuretics on hold (and appears euvolemic at this time) (3) Pulmonary hypertension: Code(s): I27.20 - Pulmonary hypertension, unspecified Status: Acute Assessment and Plan: quite severe as noted by Echo following with Pulmonary (DR. Johnson) as an outpatient (4) Atypical chest pain: Code(s): R07.89 - Other chest pain Status: Acute Assessment and Plan: negative work-up on last hospital admission recurrent of neuropathic pain from shingeles(?) (5) Essential hypertension: Code(s): I10 - Essential (primary) hypertension Status: Acute Assessment and Plan: erratic control in the last few days follow trend of hemodynamics (6) Type 2 diabetes mellitus with hyperglycemia: Code(s): E11.65 - Type 2 diabetes mellitus with hyperglycemia Status: Acute Assessment and Plan: follow accuchecks on Lantus and SSI Will continue to follow. Subjective Date/time seen: 04/04/20 15:33 Apparently slipped off bed when working with therapy earlier today -- no significant trauma and x-rays without acute injury; complaining of burning sensation from right side of neck down to her right abdomen; states it seems worse with eating Exam Narrative: Exam Narrative: General: Large AA female in NAD Heart: normal S1 and S2; no rub Lungs: clear anteriorly, decreased at bases Abdomen: obese but soft, nontender, nondistended, positive bowel sounds Extremities: no cyanosis or clubbing; mild edema Skin: warm and dry Objective Data Vital Signs Vital Signs: Vital Signs Temp Pulse Resp BP Pulse Ox 04/04/20 14:53 78 18 04/04/20 14:48 78 18 04/04/20 10:58 36.8 C 95 16 164/84 H 100 04/04/20 10:51 36.5 C 81 16 102/52 L 99 04/04/20 08:00 95 16 100 04/04/20 07:24 60 18 04/04/20 07:19 57 L 18 04/04/20 06:00 36.2 C L 83 21 H 131/57 L 100 04/04/20 04:04 85 04/04/20 02:36 69 18 04/04/20 02:00 36.4 C L 84 21 H 122/61 100 04/04/20 00:00 87 04/03/20 22:00 36.4 C 80 21 H 125/46 L 100 04/03/20 21:22 66 18 04/03/20 21:15 66 18 04/03/20 20:00 78 04/03/20 16:00 82 Intake/Output Intake/Output: Intake & Output 04/01/20 04/02/20 04/03/20 04/04/20 23:59 23:59 23:59 23:59 Intake Total 1750 1616 2870 480 Output Total 700 1500 360 550 Balance 6961 014 2583 -70 Meds/Results Medications: Active Medications Generic Name Dose Route Start Last Admin Trade Name Freq PRN Reason Stop Dose Admin Albuterol 2 puff 03/31/20 08:51 04/04/20 12:18 Proventil Hfa INHALAT
[2020-04-04 17:15] LABS: Glucose Point of Care 262 (65-105)
[2020-04-04] MEDS: ENOXAPARIN 40 MG/0.4 ML SYRINGE SUB-Q (21:15)
[2020-04-04] MEDS: INSULIN GLARGINE (*BKC) 100 UNITS/ML 50 UNITS SUB-Q (21:16)
[2020-04-04 21:22] LABS: Glucose Point of Care 295 (65-105)
[2020-04-05] VITALS (13 sets, daily range): BP systolic 112–152; BP diastolic 46–80; PULSE 68–86; RESP 14–24; TEMP 36.3–37.9; O2SAT 97–100
[2020-04-05] MEDS: ALBUTEROL SULFATE NEB 2.5 MG/0.5 ML INH 5 MG INHALATION ×2 (02:00→09:52)
[2020-04-05 07:04] LABS: Creatinine Urine 119.4 mg/dL
[2020-04-05 07:05] LABS: Sodium Urine Random 22 meq/L
[2020-04-05 07:14] LABS: Basophils Percent Auto 0.5 % (0.2-1.2); Eosinophils Absolute Auto 0.2 K/mm3 (0-0.3); Eosinophils Percent Auto 2.5 % (0-4.4); Hematocrit 27.6 % (37.0-47.0); Hemoglobin 8.9 g/dL (12.0-15.0); Immature Granulocyte Absolute 0.01 K/mm3 (0.00-0.031); Immature Granulocyte Percent A 0.2 % (0-0.5); Immature Platelet Fraction Pct 7.7 % (0.9-11.2); Immature Reticulocyte Fraction 8.7 % (3.0-15.9); Lymphocytes Absolute Auto 1.86 K/mm3 (0.9-3.2); Lymphocytes Percent Auto 28.8 % (18.3-44.2); Mean Corpuscular HGB Conc 32.2 g/dl (32-36); Mean Corpuscular Hemoglobin 30.9 pg (26-34); Mean Corpuscular Volume 95.8 fl (80-100); Mean Platelet Volume 12.8 fl (7.4-10.4); Monocytes Percent Auto 15.2 % (2.6-8.5); Neutrophils Absolute Auto 3.4 K/mm3 (1.3-6.7); Neutrophils Percent Auto 52.8 % (45.5-73.1); Platelet Count Result 165 k/mm3 (150-375); Red Blood Count 2.88 M/mm3 (4.2-5.4); Red Cell Distribution Width 15.5 % (11.5-14.5); Reticulocyte Hemoglobin Conten 35.3 pg (28.2-35.7); Reticulocyte Percent 1.51 % (0.7-4.3); Reticulocytes Absolute 0.04 B/L (32.2-175.7); White Blood Count 6.5 K/mm3 (4.5-10.0)
[2020-04-05 07:31] LABS: Albumin Level 3.4 g/dL (3.5-5.1); Anion Gap 7 mmol/L (8-16); Blood Urea Nitrogen 51 mg/dL (7-17); Calcium 8.3 mg/dL (8.4-10.2); Carbon Dioxide 25 mmol/L (22-30); Chloride 104 mmol/L (98-107); Estimated CRCL calculation 32 ml/min; Estimated Glomerular Filt Rate 27; Glucose 244 mg/dL (65-105); Phosphorus 4.1 mg/dL (2.5-4.5); Potassium 4.5 mmol/L (3.4-5.0); Sodium 136 mmol/L (137-145)
[2020-04-05 07:37] LABS: Glucose Point of Care 239 (65-105)
[2020-04-05 07:38] LABS: Complement C3 99 mg/dL (88-165)
[2020-04-05] MEDS: INSULIN ASPART (*BKC) 100 UNITS/ML SUB-Q ×4 (07:40→11:58)
[2020-04-05] MEDS: ASPIRIN 81 MG CHEWABLE TABLET PO (07:41)
[2020-04-05 08:13] LABS: Iron 42 ug/dL (37-170)
[2020-04-05 08:23] LABS: Percent Iron Saturation 13 % (20-50)
[2020-04-05] MEDS: PANTOPRAZOLE 40 MG TABLET PO (09:30)
[2020-04-05] MEDS: GABAPENTIN 400 MG CAPSULE PO ×2 (09:30→12:00)
[2020-04-05] MEDS: FLUTICASONE PROPIONATE 0.05% NA SPR 16 GM BTL (*BKC) 1 SPRAY NASAL (09:30)
[2020-04-05] MEDS: LOSARTAN POTASSIUM 50 MG TABLET PO (09:30)
[2020-04-05] MEDS: ACETAMINOPHEN 325 MG TABLET 650 MG PO (10:49)
[2020-04-05] MEDS: methocarbamoL 750 MG TABLET PO (10:50)
[2020-04-05 11:43] LABS: Glucose Point of Care 211 (65-105)
--- NOTE | 2020-04-05 12:00 | PCOTNOTE ---
Patient requested to have OT treatment this date. Attempted to see for therapy session. Patient declined due to getting the order for discharge to home this afternoon. Patient had questions for the medical doctor and did not want to perform therapy services.
[2020-04-06 20:52] LABS: Kappa\\Lambda Light Chains 1.57 (0.26-1.65); Lambda Light Chain 20.2 mg/L (5.7-26.3)
[2020-04-08 06:35] LABS: Albumin 2.8 g/dL (3.8-4.8); Alpha 1 Globulin 0.3 g/dL (0.2-0.3); Alpha 2 Globulin 0.8 g/dL (0.5-0.9); Beta 1 Globulin 0.4 g/dL (0.4-0.6); Gamma Globulin 0.9 g/dL (0.8-1.7); Interpretation Consistent with; Protein, Total 5.4 g/dL (6.1-8.1)
--- NOTE | 2020-04-08 08:13 | PM.DS ---
DS: Admitting Diagnosis Admitting Diagnosis Admitting Diagnosis: CHF, elevated troponin, trigeminy DS: Discharge Diagnosis Discharge Diagnosis (1) CHF (congestive heart failure): Qualifiers: Heart failure chronicity: unspecified Heart failure type: unspecified Qualified Code(s): I50.9 - Heart failure, unspecified Code(s): I50.9 - Heart failure, unspecified Status: Acute Assessment and Plan: acute on chronic diastolic heart failure. Echo within the last 1-2 months revealed grade 2 diastolic dysfunction with normal ejection fraction of 55-60% and marked pulmonary hypertension. Controlled blood pressure and diuresed as possible but held lasix initially with rising creatinine and restarted at discharge, bmp to be drawn next week (2) Elevated troponin: Code(s): R79.89 - Other specified abnormal findings of blood chemistry Status: Acute Assessment and Plan: elevated slightly but less than last visit and flat suggesting no acute coronary event probably secondary to chronic renal insufficiency (3) Pulmonary hypertension: Code(s): I27.20 - Pulmonary hypertension, unspecified Status: Acute Assessment and Plan: CTA last visit showed no pulmonary emboli. D-dimer is still slightly elevated though lower than last visit and venous Doppler is negative Pt relates negative sleep study in past (4) Atypical chest pain: Code(s): R07.89 - Other chest pain Status: Acute Assessment and Plan: the pain definitely appears to be neuropathic and increased gabapentin to 400 t.i.d.. Hopefully will improve (5) Essential hypertension: Code(s): I10 - Essential (primary) hypertension Status: Acute Assessment and Plan: pressure fair control continue the ARB but decreased to 50 qd with elevatd creatinine (6) Type 2 diabetes mellitus with hyperglycemia: Code(s): E11.65 - Type 2 diabetes mellitus with hyperglycemia Status: Acute Assessment and Plan: continue her along acting Lantus with a sliding scale (7) Chronic renal failure, stage 3 (moderate): Code(s): N18.3 - Chronic kidney disease, stage 3 (moderate) Status: Acute Assessment and Plan: grade 3 and creatinine essentially same as previous. creatinine at 2.2 at discharge, renal US normal. nephrology consulted while here (8) Anemia: Code(s): D64.9 - Anemia, unspecified Status: Acute Assessment and Plan: B12 was normal and iron studies nondiagnostic. Thought secondary to chronic renal failure and will need to be followed up along with outpatient. DS: Summary Hospital Course Hospital Course: 69-year-old obese type 2 diabetic admitted with right-sided chest pain and shortness breath similar to when she admitted emitted approximately a month ago. At that time CTA of the chest showed no pulmonary emboli and echocardiogram revealed diastolic dysfunction pulmonary hypertension. D-dimer was elevated as before though lower and venous Doppler was negative this visit. She continued to complain and chest pain and shortness breath but continued to have O2 sat 100% even with ambulation. We felt her shortness of breath is multifactorial pulmonary hypertension, diastolic dysfunction, and obesity with deconditioning she will be followed by health care and have a BMP drawn on the 22nd Time Spent with Patient Time attestation: Total time spent providing and/or coordinating discharge services:35 minutes Exam Narrative: Exam Narrative: condition on discharge blood pressure 134/76 pulse 76 respirations 16 per minute saturating 100% on room air lungs clear CV regular rate rhythm abdomen obese nontender still tenderness on the right chest wall extremities trace edema patient was up ambulating with standby assistance in stable condition. She related that she was still short of breath although she did not desaturate when ambulating. Sh
[2020-04-08 21:18] LABS: Anti Glomerular Basement Memb <1.0 AI (<1.0)
[2020-04-10 04:54] LABS: Creatinine, Random Urine 182 mg/dL (20-275); Total Protein/Creatinine Ratio 88 mg/g creat (21-161)
[2020-04-11 10:39] LABS: ANCA Screen Negative (Negative)
== END 2020-04-05 15:20 | disposition home health service (06) | DRG 291 ==
LOC: ANHED 23:33 → ANH3MED 04-02 03:40 → ANHIMU 04-08 09:39
PROVIDERS: Internal Medicine Nephrology; Admitting Provider Internal Medicine; Emergency Provider Emergency Medicine; PCP Emergency Medicine; Visit Provider Internal Medicine
DX: I13.0 Hypertensive heart and chronic kidney disease with heart failure and stage 1 through stage 4 chronic kidney disease, or unspecified chronic kidney disease (principal); I50.33 Acute on chronic diastolic (congestive) heart failure; Z68.42 Body mass index [BMI] 45.0-49.9, adult; I27.20 Pulmonary hypertension, unspecified; E11.22 Type 2 diabetes mellitus with diabetic chronic kidney disease; D63.1 Anemia in chronic kidney disease; E11.65 Type 2 diabetes mellitus with hyperglycemia; N18.3 Chronic kidney disease, stage 3 (moderate); R07.89 Other chest pain; E66.9 Obesity, unspecified; R79.89 Other specified abnormal findings of blood chemistry; E78.5 Hyperlipidemia, unspecified; E89.0 Postprocedural hypothyroidism; S10.81XA Abrasion of other specified part of neck, initial encounter; M25.512 Pain in left shoulder; M25.552 Pain in left hip; W06.XXXA Fall from bed, initial encounter; Z79.4 Long term (current) use of insulin; Z79.82 Long term (current) use of aspirin; Z79.899 Other long term (current) drug therapy; Z88.0 Allergy status to penicillin; Z88.8 Allergy status to other drugs, medicaments and biological substances; Z86.73 Personal history of transient ischemic attack (TIA), and cerebral infarction without residual deficits
CPT/HCPCS: 36415; 36600; 71045; 71046; 72050; 73030; 73502; 76775; 80048; 80053; 80069; 81001; 81050; 82570; 82607; 82728; 82805; 83520; 83540; 83550; 83735; 83880; 83883; 84155; 84156; 84165; 84166; 84300; 84439; 84443; 84480; 84484; 85025; 85046; 85055; 85380; 85610; 85730; 85999; 86021; 86038; 86160; 86225; 87040; 93005; 93970; 94640; 97110; 97116; 97161; 97165; 97530; 99285; A9270; J0131; J1650; J1815; J1940

== ENCOUNTER 2020-04-15 08:54 | Outpatient (CLI) | payer MEDICARE, SELFPAY ==
[2020-04-15 09:00] VITALS: PULSE 90; O2SAT 97
[2020-04-15 09:20] VITALS: PULSE 118; PULSE 88; O2SAT 94; O2SAT 97
--- NOTE | 2020-04-15 15:16 | HOMEO2EVAL ---
Home Oxygen Evaluation RC: Home Oxygen (O2) Evaluation Start: 04/15/20 15:14 Freq: Status: Active Protocol: RPE Activity Type Activity Date Activity User E-Sign Co-Sign Detail Recorded Client Recorded Date Recorded By Document 04/15/20 09:00 DJO [id number] 04/15/20 15:16 DJO Document 04/15/20 09:20 DJO [id number] 04/15/20 15:16 DJO Document 04/15/20 09:20 DJO [id number] 04/15/20 15:16 DJO 04/15/20 04/15/20 04/15/20 09:00 09:20 09:20 Home O2 Evaluation Test Phase Resting Exercise Resting Oxygen Delivery Room Air Room Air Room Air Pulse Oximetry (90-100 %) 97 94 97 Pulse Rate (60-100 beats/min) 90 118 H 88 Ambulation Distance (feet) 100 Treatment Charges O2 Evaluation
--- NOTE | 2020-04-21 09:45 | WPDPFTINT ---
PFT Interpretation PFT Interpretation: This PFT met all criteria for ATS standards and reproducibility FEV/FVC post bronchodilator 77% FEV1 64% or 1.33 liters FVC 59% or 1.73 liters TLC 82% or 4.12 liters RV 110 % RV/TLC 54% DLCO 52% or 15.8 liters when adjusted for alveolar volume but not adjusted for hemoglobin Flow volume loops showed normal Impression: No significant obstruction or restriction is present. Moderately reduced diffusion capacity is present. In the absence of anemia or pulmonary hypertension, intrinsic lung disease may be present. Clinical correlation is advised.
== END 2020-04-15 08:55 | disposition home or self-care (01) ==
LOC: ANHPFT 08:57
PROVIDERS: PCP Emergency Medicine; Visit Provider Internal Medicine Critical Care Medicine
DX: G47.10 Hypersomnia, unspecified (principal); R06.02 Shortness of breath; R06.00 Dyspnea, unspecified
CPT/HCPCS: 94060; 94618; 94726; 94729

== ENCOUNTER 2020-04-20 10:42 | Outpatient (CLI) | payer MEDICARE, SELFPAY ==
[2020-04-20 11:12] LABS: Basophils Percent Auto 0.5 % (0.2-1.2); Eosinophils Absolute Auto 0.2 K/mm3 (0-0.3); Eosinophils Percent Auto 2.9 % (0-4.4); Hematocrit 32.8 % (37.0-47.0); Hemoglobin 10.9 g/dL (12.0-15.0); Immature Granulocyte Absolute 0.01 K/mm3 (0.00-0.031); Immature Granulocyte Percent A 0.2 % (0-0.5); Lymphocytes Percent Auto 30.3 % (18.3-44.2); Mean Corpuscular HGB Conc 33.2 g/dl (32-36); Mean Corpuscular Hemoglobin 31.6 pg (26-34); Mean Corpuscular Volume 95.1 fl (80-100); Monocytes Absolute Auto 0.7 K/mm3 (0.1-0.6); Monocytes Percent Auto 11.6 % (2.6-8.5); Neutrophils Absolute Auto 3.2 K/mm3 (1.3-6.7); Neutrophils Percent Auto 54.5 % (45.5-73.1); Platelet Count Result 165 k/mm3 (150-375); Red Blood Count 3.45 M/mm3 (4.2-5.4); Red Cell Distribution Width 14.5 % (11.5-14.5); White Blood Count 5.9 K/mm3 (4.5-10.0)
[2020-04-20 11:28] LABS: Alanine Aminotransferase 15 U/L (4-35); Alkaline Phosphatase 55 U/L (38-126); Anion Gap 8 mmol/L (8-16); Aspartate Amino Transferase 22 U/L (14-36); Bilirubin,Total 0.3 mg/dL (0.2-1.3); Blood Urea Nitrogen 25 mg/dL (7-17); Calcium 9.2 mg/dL (8.4-10.2); Carbon Dioxide 33 mmol/L (22-30); Chloride 100 mmol/L (98-107); Estimated Glomerular Filt Rate 45; Glucose 249 mg/dL (65-105); Potassium 3.9 mmol/L (3.4-5.0); Sodium 141 mmol/L (137-145)
[2020-04-20 12:33] LABS: Free T4 Free Thyroxine 1.23 ng/mL (0.78-2.19)
== END 2020-04-20 10:43 | disposition home or self-care (01) ==
PROVIDERS: PCP Emergency Medicine; Visit Provider Nurse Practitioner Adult Health
DX: N18.9 Chronic kidney disease, unspecified (principal); I27.20 Pulmonary hypertension, unspecified; E03.9 Hypothyroidism, unspecified
CPT/HCPCS: 36415; 80053; 84439; 84443; 85025

== ENCOUNTER 2020-04-21 07:17 | Outpatient (CLI) | payer MEDICARE, SELFPAY ==
--- NOTE | 2020-05-19 23:17 | WPDHOMESLEEP ---
Sleep Study - Home Date of Study: 04/21/20 Ordering Provider: Anastasiya Johnson MD Interpreting Physician: Anastasiya Johnson MD Home Sleep Study Type: Apnea Link Air Height: 1.65 m Weight: 141.067 kg Body Mass Index: 51.7 [place]: 4 Reason for Sleep Study Severe pulmonary hypertension; RVSP 68 mmHg on echo 02/17/2020; needs evaluation. Sleep History Katlin Calles is a 69 yo female who does not know if she snores. She is told by others that she might snore on occasion. She occasionally wakes at night with heartburn, belching or coughing. She does not have trouble sleep with a cold. She denies gasping for breath at night. She occasionally has breathing problems at night reported to her by others. She does not sweat excessively at night or knows her heart pounding or beating irregularly at night. She does not fall asleep during the day, does not fall asleep involuntarily or while driving. She does not have loss of muscle tone with strong emotion. She does not have daytime difficulties due to excessive sleepiness. She does not feel paralyzed on waking or falling asleep. She denies vivid dreamlike scenes upon awakening or falling asleep. She has never upgrade to go to sleep. She does not have nightmares. She constantly remembers her dreams. She has racing thoughts. She denies feeling sad or depressed occasion has anxiety. She denies muscular tension, does not notice parts of her body jerking, and she does not kick at night. She occasionally has crawling and aching feelings in her legs, occasionally has leg pain during the night. She does not have morning jaw pain and does not grind her teeth during sleep. She constantly is bothered by pain during the day, and occasionally is awakened by pain at night. She constantly wakes up feeling stiff in the morning with sore achy muscles. She wakes up constantly with pain in the neck and spine. She has fatigue. Normal bedtime is 12 midnight falling asleep within 5-6 minutes waking 3 times at night, will adjust and go back to sleep. She wakes at 9 in the morning. She does not take naps. A short nap is not refreshing. She is drowsy in the morning for 2 hours. [facility] Past Medical History Medical History (Updated 05/19/20 @ 23:38 by Anastasiya Johnson MD) Dyslipidemia Essential hypertension Grade II diastolic dysfunction History of CVA (cerebrovascular accident) Severe pulmonary arterial systolic hypertension Type 2 diabetes mellitus with hyperglycemia Surgical History Surgical History H/O thyroidectomy Hx of tonsillectomy Family History Family History Mother , age 80, congestive heart failure Heart disease Other Cerebrovascular accident Diabetes mellitus Family history of arthritis Family history of cardiovascular disease Hypertension Social History Social History Social History: lives with her fiance and has no children Smoking status: Never smoker Second hand tobacco smoke exposure: Yes Alcohol intake: never Substance use: never Substance use type: does not use Gender identity (if verbalized by the patient): Male Spiritual care concerns: No Medications Home Medications Medication Instructions Recorded Confirmed Type furosemide 40 mg tablet 40 mg PO QAM 07/02/19 03/31/20 History insulin lispro [Humalog KwikPen See Protocol SUBCUT ACHS 11/14/19 03/31/20 History Insulin] omeprazole 40 mg PO DAILY 11/14/19 03/31/20 History acyclovir 800 mg PO 5 TIMES DAILY #70 tablet 02/18/20 03/31/20 Rx albuterol sulfate 2 puff INHALATION QID PRN #6.7 gm 02/18/20 03/31/20 Rx aspirin [Children's Aspirin] 81 mg PO DAILY@0800 #30 tablet 02/18/20 03/31/20 Rx fluticasone propionate 50 1 spray NASAL DAILY #15.8 ml 03/23/20 03/31/20 Rx mcg/actuation nasal spray,suspension dextromethorphan-
[2020-05-19 23:45] VITALS: BMI 51.7
== END 2020-04-21 07:18 | disposition home or self-care (01) ==
LOC: ANHCSM 07:22
PROVIDERS: PCP Emergency Medicine; Visit Provider Internal Medicine Critical Care Medicine
DX: G47.33 Obstructive sleep apnea (adult) (pediatric) (principal); R53.83 Other fatigue; I27.20 Pulmonary hypertension, unspecified; I13.0 Hypertensive heart and chronic kidney disease with heart failure and stage 1 through stage 4 chronic kidney disease, or unspecified chronic kidney disease; I50.9 Heart failure, unspecified; N18.3 Chronic kidney disease, stage 3 (moderate); E11.22 Type 2 diabetes mellitus with diabetic chronic kidney disease; E78.5 Hyperlipidemia, unspecified; R07.89 Other chest pain
CPT/HCPCS: 95806

== ENCOUNTER 2020-07-09 10:30 | Outpatient (RCR) | payer MEDICARE, SELFPAY ==
[2020-05-04 13:16] VITALS: BMI 50.3
[2020-05-04 13:21] VITALS: BMI 50.3
== END 2020-07-19 15:59 | disposition home or self-care (01) ==
LOC: ANHDMC 10:30
PROVIDERS: PCP Emergency Medicine; Visit Provider Emergency Medicine
DX: E11.65 Type 2 diabetes mellitus with hyperglycemia (principal); Z71.3 Dietary counseling and surveillance; Z71.89 Other specified counseling
CPT/HCPCS: 97802; G0108

== ENCOUNTER 2020-08-10 12:13 | Outpatient (CLI) | payer MEDICARE, SELFPAY ==
[2020-08-10 12:47] LABS: Hemoglobin A1C 9.7 % (<5.7)
[2020-08-10 12:50] LABS: Alanine Aminotransferase 11 U/L (4-35); Albumin Level 3.8 g/dL (3.5-5.1); Alkaline Phosphatase 60 U/L (38-126); Anion Gap 4 mmol/L (8-16); Aspartate Amino Transferase 25 U/L (14-36); Bilirubin,Total 0.5 mg/dL (0.2-1.3); Blood Urea Nitrogen 22 mg/dL (7-17); Calcium 9.3 mg/dL (8.4-10.2); Carbon Dioxide 35 mmol/L (22-30); Chloride 100 mmol/L (98-107); Cholesterol 251 mg/dL (0-200); Estimated Glomerular Filt Rate 45; Glucose 178 mg/dL (65-105); HDL Direct 68 mg/dL; Potassium 4.1 mmol/L (3.4-5.0); Sodium 139 mmol/L (137-145); Triglycerides 83 mg/dL (<150)
[2020-08-10 13:01] LABS: LDL Cholesterol Direct 117 mg/dL
== END 2020-08-10 12:14 | disposition home or self-care (01) ==
PROVIDERS: PCP Emergency Medicine; Referring Provider Internal Medicine Cardiovascular Disease; Visit Provider Emergency Medicine
DX: E78.5 Hyperlipidemia, unspecified (principal); E11.9 Type 2 diabetes mellitus without complications; R60.0 Localized edema; I51.89 Other ill-defined heart diseases
CPT/HCPCS: 36415; 80053; 80061; 83036

== ENCOUNTER 2020-08-23 16:07 | Outpatient (CLI) | payer MEDICARE, SELFPAY ==
[2020-08-23 17:18] LABS: Alanine Aminotransferase 13 U/L (4-35); Albumin Level 3.9 g/dL (3.5-5.1); Alkaline Phosphatase 62 U/L (38-126); Anion Gap 6 mmol/L (8-16); Aspartate Amino Transferase 28 U/L (14-36); Bilirubin,Total 0.4 mg/dL (0.2-1.3); Blood Urea Nitrogen 21 mg/dL (7-17); Calcium 9.2 mg/dL (8.4-10.2); Carbon Dioxide 30 mmol/L (22-30); Chloride 105 mmol/L (98-107); Creatine Kinase 159 U/L (30-135); Estimated Glomerular Filt Rate 41; Glucose 278 mg/dL (65-105); Magnesium 1.8 mg/dL (1.6-2.3); Potassium 4.4 mmol/L (3.4-5.0); Sodium 141 mmol/L (137-145)
== END 2020-08-23 16:08 | disposition home or self-care (01) ==
LOC: ANHLAB 16:09
PROVIDERS: PCP Emergency Medicine; Visit Provider Nurse Practitioner Adult Health
DX: R10.11 Right upper quadrant pain (principal)
CPT/HCPCS: 36415; 80053; 82550; 83735

== ENCOUNTER 2020-09-21 12:51 | Outpatient (CLI) | payer MEDICARE, SELFPAY ==
[2020-09-21 13:43] LABS: Hemoglobin A1C 8.4 % (<5.7)
== END 2020-09-21 12:52 | disposition home or self-care (01) ==
PROVIDERS: PCP Emergency Medicine; Visit Provider Emergency Medicine
DX: E11.65 Type 2 diabetes mellitus with hyperglycemia (principal)
CPT/HCPCS: 36415; 83036

== ENCOUNTER 2020-09-24 08:02 | Emergency (ER) | payer MEDICARE, SELFPAY ==
[2020-09-24] VITALS (7 sets, daily range): BP systolic 128–158; BP diastolic 64–89; PULSE 74–87; RESP 20–24; TEMP 36.8; O2SAT 96–100
--- NOTE | ~2020-09-24 | XR_ITS ---
EXAMINATION: XR chest 2V DATE: 09/24/2020 08:49 INDICATION: Shortness of breath. TECHNIQUE: Frontal and lateral views of the chest were obtained. COMPARISON: Chest 2 views 04/04/2020 FINDINGS: Calcified left lung nodules are consistent with old granulomatous disease. There are small pleural effusions. There is mild atelectasis at the lung bases. No pneumothorax. Cardiomegaly is note d. IMPRESSION: 1. Small pleural effusions. 2. Cardiomegaly. Reviewed, dictated and finalized at location A. ESTATE REP
--- NOTE | 2020-09-24 08:09 | ED.SOB ---
HPI - SOB/Dyspnea General Chief Complaint: Shortness of Breath/Dyspnea Stated Complaint: shortness of breath, leg swelling Time Seen by Provider: 09/24/20 08:07 History of Present Illness HPI Narrative: 70 yo female w/ h/o CHF, ashtma, DM presents to the ED for SOB. She reports worsening shortness of breath fort quite some time. This is associated with intermittent chest pain and orthopnea. She was recently seen by Dr. Mullen and started on an antibiotic. She also received a breathing treatment, which she states that she thought might have helped, but it didn't. She says this morning she checked her weight and it was up, so she thought she needed to come in. She is not able to say how much her weight had changed. No fever. Related Data Home Medications Medication Instructions Recorded Confirmed omeprazole 40 mg PO DAILY 11/14/19 08/30/20 furosemide 80 mg tablet 80 mg PO QAM 06/14/20 08/30/20 krbjlhid-ddf-koau-vitamin K [Adult 1 tablet PO DAILY 07/29/20 08/30/20 Multivitamin with Iron] Allergies Allergy/AdvReac Type Severity Reaction Status Date / Time Lbdhmqh-Wsk-Xek Reductase Allergy Mild Cramping Verified 09/24/20 08:15 Inhibitor of the Muscles Penicillins Allergy Itching Verified 09/24/20 08:15 Review of Systems Review of Systems: All systems reviewed & are unremarkable except as noted in HPI and below Constitutional: Constitutional: Denies chills and Denies fever(s) ENT: Denies dizziness Cardiovascular: Cardiovascular: Reports chest pain Respiratory: Respiratory: Reports cough and Reports dyspnea Gastrointestinal: Gastrointestinal: Denies abdominal pain and Denies nausea Genitourinary: Genitourinary: Reports no additional female genitourinary complaints [facility] Past Medical History Medical History (Updated 09/24/20 @ 10:58 by Angelo Lopez MD) Dyslipidemia Essential hypertension Grade II diastolic dysfunction History of CVA (cerebrovascular accident) Severe pulmonary arterial systolic hypertension Type 2 diabetes mellitus with hyperglycemia Surgical History Surgical History H/O thyroidectomy Hx of tonsillectomy Family History Family History Mother , age 80, congestive heart failure Heart disease Other Cerebrovascular accident Diabetes mellitus Family history of arthritis Family history of cardiovascular disease Hypertension Social History Social History Social History: lives with her fiance and has no children Smoking status: Never smoker Second hand tobacco smoke exposure: Yes Alcohol intake: never Substance use: never Substance use type: does not use Gender identity (if verbalized by the patient): Female Spiritual care concerns: No Exam Const: General: no acute distress and alert Nutritional Appearance: obese Orientation/consciousness: patient oriented x3 HENMT: Head: normal to inspection Chest: Chest palpation & inspection: normal inspection of the chest Resp: Effort & Inspection: tachypneic Auscultation: clear to auscultation bilaterally Cardio: Rate: regular rate Rhythm: regular rhythm GI: GI Palp: Yes Soft to palpation and No Tenderness to palpation present (GI) Skin: General skin exam: normal color Neuro: General: patient oriented x3, moves all extremities, no focal motor deficits and CN's II-XI intact bilaterally Speech: normal speech Extrem: General: edema bilateral Course Vital Signs Vital signs: Vital Signs Temperature 36.8 C 09/24/20 08:08 Pulse Rate 87 09/24/20 08:08 Respiratory Rate 20 09/24/20 08:08 Blood Pressure 128/68 09/24/20 08:08 Pulse Oximetry 98 09/24/20 08:08 Temperature 36.8 C 09/24/20 08:08 Pulse Rate 74 09/24/20 10:28 Respiratory Rate 20 09/24/20 10:28 Blood Pressure 153/89 H 09/24/20 1
--- NOTE | 2020-09-24 08:13 | ECG_ITS ---
Measurements Intervals [place] Rate: 98 P: 36 WI: 236 QRS: 54 QRSD: 81 T: -52 QT: 357 QTc: 457 Interpretive Statements SINUS RHYTHM FREQUENT ATRIAL PREMATURE COMPLEXES BORDERLINE AV CONDUCTION DELAY BORDERLINE R WAVE PROGRESSION, ANTERIOR LEADS BORDERLINE ST-T WAVE ABNORMALITY- INF/HIGH LAT LEADS BASELINE ARTIFACT- I, II, AVR, V2, V4-V6 ABNORMAL ECG Electronically Signed On 09-24-2020 8:19:21 LOSS PREVENTION SUPERVISOR by Kiran Moss D.O.
--- NOTE | 2020-09-24 09:12 | PC.NURSE ---
PHLEBOTOMY CALLED TO DRAW PT LABS
[2020-09-24 09:38] LABS: Basophils Percent Auto 0.5 % (0.2-1.2); Eosinophils Absolute Auto 0.2 K/mm3 (0-0.3); Eosinophils Percent Auto 2.4 % (0-4.4); Hematocrit 30.5 % (37.0-47.0); Hemoglobin 9.7 g/dL (12.0-15.0); Immature Granulocyte Absolute 0.01 K/mm3 (0.00-0.031); Immature Granulocyte Percent A 0.2 % (0-0.5); Lymphocytes Percent Auto 28.8 % (18.3-44.2); Mean Corpuscular HGB Conc 31.8 g/dl (32-36); Mean Corpuscular Hemoglobin 29.8 pg (26-34); Mean Corpuscular Volume 93.8 fl (80-100); Mean Platelet Volume 12.4 fl (7.4-10.4); Monocytes Absolute Auto 0.9 K/mm3 (0.1-0.6); Monocytes Percent Auto 14.6 % (2.6-8.5); Neutrophils Absolute Auto 3.4 K/mm3 (1.3-6.7); Neutrophils Percent Auto 53.5 % (45.5-73.1); Platelet Count Result 170 k/mm3 (150-375); Red Blood Count 3.25 M/mm3 (4.2-5.4); Red Cell Distribution Width 15.3 % (11.5-14.5); White Blood Count 6.3 K/mm3 (4.5-10.0)
[2020-09-24] MEDS: IPRATROPIUM BR 0.02% INH SOLN 0.5 MG/2.5 ML VIAL INHALATION (09:40)
[2020-09-24] MEDS: ALBUTEROL SULFATE NEB 2.5 MG/0.5 ML INH 5 MG INHALATION (09:40)
[2020-09-24 09:48] LABS: INR 0.9; Partial Thromboplastin Time 26.2 SECONDS (22.3-36.8); Prothrombin Time 13.1 Seconds (11.1-14.7)
[2020-09-24 09:53] LABS: Alanine Aminotransferase 16 U/L (4-35); Albumin Level 3.8 g/dL (3.5-5.1); Alkaline Phosphatase 52 U/L (38-126); Aspartate Amino Transferase 28 U/L (14-36); Bilirubin,Total 0.3 mg/dL (0.2-1.3)
[2020-09-24 09:58] LABS: Anion Gap 4 mmol/L (8-16); Blood Urea Nitrogen 24 mg/dL (7-17); Calcium 8.8 mg/dL (8.4-10.2); Carbon Dioxide 32 mmol/L (22-30); Chloride 104 mmol/L (98-107); Estimated CRCL calculation 48 ml/min; Estimated Glomerular Filt Rate 45; Glucose 207 mg/dL (65-105); Potassium 4.1 mmol/L (3.4-5.0); Sodium 140 mmol/L (137-145)
[2020-09-24 10:35] LABS: NT Pro B Type Natriuretic Pept 1720 PG/ML (5-100); Troponin I < 0.012 ng/mL (0.000-0.034)
[2020-09-24] MEDS: FUROSEMIDE INJ 100 MG/10 ML VIAL 80 MG IV PUSH (10:55)
== END 2020-09-24 12:37 | disposition home or self-care (01) ==
PROVIDERS: Emergency Provider Emergency Medicine; PCP Emergency Medicine
DX: R06.00 Dyspnea, unspecified (principal); R60.0 Localized edema; I50.30 Unspecified diastolic (congestive) heart failure; I11.0 Hypertensive heart disease with heart failure; E78.5 Hyperlipidemia, unspecified; E11.9 Type 2 diabetes mellitus without complications; J45.909 Unspecified asthma, uncomplicated; Z86.73 Personal history of transient ischemic attack (TIA), and cerebral infarction without residual deficits; I51.7 Cardiomegaly; R94.31 Abnormal electrocardiogram [ECG] [EKG]
CPT/HCPCS: 36415; 71046; 80048; 80076; 83880; 84484; 85025; 85610; 85730; 93005; 94640; 96374; 99284; J1940

== ENCOUNTER 2020-10-28 10:48 | Outpatient (CLI) | payer MEDICARE, SELFPAY ==
[2020-10-28 11:36] LABS: Anion Gap 6 mmol/L (8-16); Blood Urea Nitrogen 35 mg/dL (7-17); Calcium 9.2 mg/dL (8.4-10.2); Carbon Dioxide 31 mmol/L (22-30); Chloride 103 mmol/L (98-107); Estimated Glomerular Filt Rate 34; Glucose 132 mg/dL (65-105); Magnesium 1.8 mg/dL (1.6-2.3); Potassium 4.3 mmol/L (3.4-5.0); Sodium 140 mmol/L (137-145)
== END 2020-10-28 10:49 | disposition home or self-care (01) ==
LOC: ANHLAB 10:53
PROVIDERS: PCP Emergency Medicine; Visit Provider Internal Medicine Cardiovascular Disease
DX: I50.32 Chronic diastolic (congestive) heart failure (principal); E11.22 Type 2 diabetes mellitus with diabetic chronic kidney disease; N18.30 Chronic kidney disease, stage 3 unspecified
CPT/HCPCS: 36415; 80048; 83735

== ENCOUNTER 2020-12-30 09:32 | Inpatient (IN) | payer MEDICARE, SELFPAY ==
[2020-12-30] VITALS (10 sets, daily range): BP systolic 142–163; BP diastolic 43–98; PULSE 70–100; RESP 12–18; TEMP 36.2–37.4; O2SAT 94–100; BMI 51.5
--- NOTE | ~2020-12-30 | CT_ITS ---
EXAMINATION: CTA chest PE protocol DATE: 12/31/2020 09:01 INDICATION: Left chest pain. TECHNIQUE: Computed tomography angiography (CTA) of the chest was performed with 100 mL Omnipaque-350 intravenous contrast timed to evaluate the pulmonary arteries. Coronal maximum intensity projection 3D-reconstructions were created by the technologist. Automated exposure control and iterative reconst ruction technique were employed. The dose-length product was 804.31 mGy-cm. COMPARISON: Chest CT 02/16/2020 FINDINGS: There is mild atelectasis bilaterally. No pleural effusion. Cardiomegaly is noted. No peric ardial effusion. There is a small sliding hiatal hernia. There is a 9 mm cyst in the liver. There is no pulmonary embolus. There is mild thoracic spondylosis. IMPRESSION: 1. No pulmonary embolus. 2. Cardiomegaly. 3. Small sliding hiatal hernia. Reviewed, dictated and finalized at location A.
--- NOTE | ~2020-12-30 | XR_ITS ---
EXAMINATION: XR chest 2V EXAM DATE: 12/30/2020 10:36 INDICATION: Chest pain and discomfort for one day. TECHNIQUE: Frontal and lateral projections of the chest obtained and reviewed. Comparison is made to prior examination from 09/24/2020. FINDINGS: The lungs are clear. There are no pleural effusions. Mild cardiomegaly. There is no pneu mothorax suspected. The bones and soft tissues are unremarkable. IMPRESSION: Mild cardiomegaly. Reviewed, dictated and finalized at location A. IMPRESSION: Mild cardiomegaly.
--- NOTE | ~2020-12-30 | US_ITS ---
EXAMINATION:US venous doppler LE RT INDICATION:Calf pain TECHNIQUE: Multiple grayscale, color flow and Doppler images of the right lower extremity deep venous systems were obtained and reviewed. COMPARISON: 03/31/2020. FINDINGS: The common femoral, superficial femoral and popliteal veins demonstrate normal respiratory variation, augmentation and compressibility. Color flow is also seen within the posterior tibial, pe roneal, greater saphenous and profunda veins. IMPRESSION: 1: No lower extremity deep venous thrombosis. Reviewed, dictated and finalized at location B.
[2020-12-30] MEDS: MORPHINE SULFATE (*CRX) 4 MG/ML INJ IV PUSH (09:59)
--- NOTE | 2020-12-30 10:02 | ECG_ITS ---
Measurements Intervals [place] Rate: 82 P: 9 AL: 228 QRS: 19 QRSD: 86 T: -22 QT: 371 QTc: 435 Interpretive Statements SINUS RHYTHM WITH FIRST DEGREE AV BLOCK CONSIDER INFERIOR INFARCT, AGE INDETERMINATE BASELINE WANDER- V2 ABNORMAL ECG Electronically Signed On 12-30-2020 13:41:55 CDT by Kiran Moss D.O.
[2020-12-30 11:09] LABS: Basophils Percent Auto 0.3 % (0.2-1.2); Eosinophils Absolute Auto 0.1 K/mm3 (0-0.3); Hematocrit 33.9 % (37.0-47.0); Immature Granulocyte Absolute 0.01 K/mm3 (0.00-0.031); Immature Granulocyte Percent A 0.2 % (0-0.5); Lymphocytes Absolute Auto 1.63 K/mm3 (0.9-3.2); Lymphocytes Percent Auto 25.3 % (18.3-44.2); Mean Corpuscular HGB Conc 32.4 g/dl (32-36); Mean Corpuscular Hemoglobin 29.4 pg (26-34); Mean Corpuscular Volume 90.6 fl (80-100); Mean Platelet Volume 12.9 fl (7.4-10.4); Monocytes Absolute Auto 0.9 K/mm3 (0.1-0.6); Monocytes Percent Auto 13.2 % (2.6-8.5); Neutrophils Absolute Auto 3.8 K/mm3 (1.3-6.7); Platelet Count Result 167 k/mm3 (150-375); Red Blood Count 3.74 M/mm3 (4.2-5.4); Red Cell Distribution Width 14.7 % (11.5-14.5); White Blood Count 6.4 K/mm3 (4.5-10.0)
[2020-12-30 11:19] LABS: INR 0.9; Prothrombin Time 12.4 Seconds (11.1-14.7)
[2020-12-30 11:23] LABS: Alanine Aminotransferase 11 U/L (4-35); Albumin Level 3.8 g/dL (3.5-5.1); Alkaline Phosphatase 57 U/L (38-126); Anion Gap 9 mmol/L (8-16); Aspartate Amino Transferase 24 U/L (14-36); Bilirubin,Total 0.4 mg/dL (0.2-1.3); Blood Urea Nitrogen 31 mg/dL (7-17); Calcium 9.5 mg/dL (8.4-10.2); Carbon Dioxide 26 mmol/L (22-30); Chloride 101 mmol/L (98-107); Estimated CRCL calculation 47 ml/min; Estimated Glomerular Filt Rate 45; Glucose 394 mg/dL (65-105); Potassium 4.4 mmol/L (3.4-5.0); Sodium 136 mmol/L (137-145)
[2020-12-30 11:37] LABS: Partial Thromboplastin Time < 20.0 SECONDS (22.3-36.8)
[2020-12-30 11:37] LABS: Troponin I 0.123 ng/mL (0.000-0.034)
--- NOTE | 2020-12-30 12:05 | ED.CHESTPAIN ---
HPI - Chest Pain General Chief Complaint: Chest Pain Stated Complaint: l sided chest burning,r leg burning Time Seen by Provider: 12/30/20 09:33 History of Present Illness HPI narrative: Patient is a 70-year-old female who presents ER with 2 complaints. First complaint is right calf cramping that began around 230 this morning. Had similar issues in the past when started on Lasix by her bell attendant. She has been taking her Lasix daily and has not been having issues since couple months ago. Pain is worse with movement of the leg. No focal weakness. Then at 8 AM patient started developing left-sided chest pain that was sharp and radiated down her left arm and caused some burning discomfort. Cannot report any alleviating factors. Related Data Home Medications Medication Instructions Recorded Confirmed omeprazole 40 mg PO DAILY 11/14/19 12/07/20 furosemide 80 mg tablet 80 mg PO QAM 06/14/20 12/07/20 xthfkovg-xoe-lfkk-vitamin K [Adult 1 tablet PO DAILY 07/29/20 12/07/20 Multivitamin with Iron] Allergies Allergy/AdvReac Type Severity Reaction Status Date / Time Ngrrzgz-Bdk-Qvq Reductase Allergy Mild Cramping Verified 12/30/20 09:56 Inhibitor of the Muscles Penicillins Allergy Itching Verified 12/30/20 09:56 Review of Systems Review of Systems: All systems reviewed & are unremarkable except as noted in HPI and below Constitutional: Constitutional: Denies chills, Denies fever(s) and Denies weakness ENT: Denies nasal congestion and Denies sore throat Cardiovascular: Cardiovascular: Reports chest pain, Denies rapid heart rate and Reports radiating jaw, neck or arm pain Respiratory: Respiratory: Denies cough, Denies dyspnea and Denies wheezing Gastrointestinal: Gastrointestinal: Denies abdominal pain, Denies nausea and Denies vomiting Musculoskeletal: Musculoskeletal: Denies arthralgias, Denies joint swelling and Reports muscle cramps [facility] Past Medical History Medical History (Updated 12/30/20 @ 13:29 by rEin George PA-C) Anxiety Chronic anemia Chronic kidney disease, stage 3 Baseline creatinine appears to be around 1.50. Dyslipidemia Essential hypertension Gastroesophageal reflux disease Grade II diastolic dysfunction Ejection fraction at that time was 60 to 65%. History of cerebrovascular accident (01/2015) Residual left-sided paresthesias. Insulin dependent type 2 diabetes mellitus Complicated by diabetic retinopathy, neuropathy, and nephropathy. Hemoglobin A1c was 8.4% in September 2020. Morbid obesity Obstructive sleep apnea (~04/2020) Mild FILI noted on home sleep study. Severe pulmonary arterial systolic hypertension (~01/2020) No obvious etiology has been found as of yet. Followed by Dr. Anastasiya Johnson. [place] (~1999) Surgical History Surgical History (Updated 12/30/20 @ 13:25 by Erin George PA-C) History of 2 sections History of arthroplasty of right knee History of cataract extraction History of dilation and curettage History of inguinal hernia repair History of partial thyroidectomy History of tonsillectomy and adenoidectomy History of total hysterectomy Family History Family History (Updated 12/30/20 @ 13:26 by Erin George PA-C) Mother , age 80, congestive heart failure Heart disease Father Carcinoma of colon Sibling Systemic lupus erythematosus Other Cerebrovascular accident Diabetes mellitus Hypertension Social History Social History (Updated 12/30/20 @ 13:27 by Erin George PA-C) Social History: The patient lives in [place] with her significant other. She has no living children, stillborn x2. Lifelong nonsmoker. No alcohol or illicit substance abuse. Exam Narrative: Exam Narrative: GENERAL: Well-appearing, well-nourished, and in no acute distress. HEAD: Normocephalic, atraumatic. ENT: Mucous membranes moist. CHEST: Clear to auscultation. No respiratory distress. HEART: Regular rat
[2020-12-30] MEDS: HYDROcodone/acetaminophen (*CRX) 5-325 MG TABLET 1 TAB PO (13:29)
--- NOTE | 2020-12-30 13:30 | PM.IMHP ---
H&P: HPI History of Present Illness Date/Time: 12/30/20 13:30 Chief Complaint: Left-sided chest pain. Narrative: This is a 70-year-old female with history of stroke, hypertension, dyslipidemia, insulin-dependent diabetes, chronic kidney disease stage 3, pulmonary hypertension, GERD, and several other comorbidities who presented to the emergency department earlier today via EMS from home for evaluation of left-sided chest pain. The patient reports left anterior chest pain that she has a difficult time describing and in fact she is quite inconsistent when describing the pain. Initially she told me she had burning discomfort in that area, which started after having a bowel movement this morning. Later through the interview she referred to it as squeezing pain and then on another occasion as sharp and shooting pain. At one point she told me it felt like indigestion. She also told the emergency department physician that it radiated down her left arm but she denied that to me. She goes on to say that she has had issues with this burning pain for ?quite some time? and it seems to occur each time she has a bowel movement. Per patient reports, she experiences a burning discomfort in her rectum each time she has a bowel movement, and that burning discomfort apparently radiates up into her chest, typically to the right side of her chest but today it went to the left side. She also reports right calf cramping that started about 02:30 which has occurred previously when taking Lasix. At the time my evaluation her main complaint is of discomfort in her buttocks from the gurney. She denies palpitations, racing heart, shortness of breath, nausea, vomiting, and sweats. No history of coronary artery disease or venous thromboembolism. Review of Systems Review of Systems: Narrative: Twelve systems were reviewed with pertinent positives and negatives as per HPI. No fever, chills, or sweats. She denies syncope or near syncope. Reports sleeping poorly and is sometimes awake for 2 to 3 days at a time ?because my mind races.? She was diagnosed with mild sleep apnea on home sleep study but does not wear a CPAP. When she does sleep she feels well rested. No cough, sinus congestion, rhinorrhea, otalgia, or odynophagia. She denies abdominal bloating, belching, and significant flatus. No dysuria. No blurry vision, polydipsia, or polyuria. Except as documented, all other systems were reviewed and are negative. [facility] Past Medical History Medical History (Updated 12/30/20 @ 13:29 by Erin George PA-C) Anxiety Chronic anemia Chronic kidney disease, stage 3 Baseline creatinine appears to be around 1.50. Dyslipidemia Essential hypertension Gastroesophageal reflux disease Grade II diastolic dysfunction Ejection fraction at that time was 60 to 65%. History of cerebrovascular accident (01/2015) Residual left-sided paresthesias. Insulin dependent type 2 diabetes mellitus Complicated by diabetic retinopathy, neuropathy, and nephropathy. Hemoglobin A1c was 8.4% in September 2020. Morbid obesity Obstructive sleep apnea (~04/2020) Mild FILI noted on home sleep study. Severe pulmonary arterial systolic hypertension (~01/2020) No obvious etiology has been found as of yet. Followed by Dr. Anastasiya Johnson. [place] (~1999) Surgical History Surgical History (Updated 12/30/20 @ 13:25 by Erin George PA-C) History of 2 sections History of arthroplasty of right knee History of cataract extraction History of dilation and curettage History of inguinal hernia repair History of partial thyroidectomy History of tonsillectomy and adenoidectomy History of total hysterectomy Family History Family History (Updated 12/30/20 @ 13:26 by Erin George PA-C) Mother , age 80, congestive heart failure Heart disease Father Carcinoma of colon Sibling Systemic lupus erythematosus Other Cerebrovascular accident Diabetes mellitus Hypertension
[2020-12-30] MEDS: ENOXAPARIN 60 MG/0.6 ML SYRINGE SUB-Q (15:24)
[2020-12-30] MEDS: ENOXAPARIN 80 MG/0.8 ML SYRINGE SUB-Q (15:37)
[2020-12-30 16:50] LABS: Hemoglobin A1C 10.5 % (<5.7)
[2020-12-30 16:53] LABS: D Dimer 1.71 ug/mL (<0.48)
[2020-12-30 16:54] LABS: Alanine Aminotransferase 12 U/L (4-35); Albumin Level 3.9 g/dL (3.5-5.1); Alkaline Phosphatase 58 U/L (38-126); Aspartate Amino Transferase 32 U/L (14-36); Bilirubin,Total 0.5 mg/dL (0.2-1.3)
--- NOTE | 2020-12-30 17:10 | ADMGEN ---
This patient, Katlin Calles, was admitted to IMU Room 201-01 @ 1530. Patientoriented to hospital policies and general routines including ID bracelet, bed and alarms, visiting hours, pain management, procedures, bathroom and other care routines, personal items, smoking policy, room service/diet, and visiting hours. Information on how to activate the Rapid Response Team has been discussed. Patient are encouraged to report perceived risks to care and to ask questions if they do not understand what they are told or what they should do.
[2020-12-30 17:13] LABS: NT Pro B Type Natriuretic Pept 1650 pg/mL (5-100); Troponin I 0.694 ng/mL (0.000-0.034)
[2020-12-30 20:37] LABS: Glucose Point of Care 413 mg/dl (65-105)
[2020-12-30] MEDS: ACETAMINOPHEN 325 MG TABLET 650 MG PO (21:35)
[2020-12-30] MEDS: methocarbamoL 750 MG TABLET PO (21:36)
[2020-12-30] MEDS: INSULIN GLARGINE (*BKC) 100 UNITS/ML 50 UNITS SUB-Q (21:37)
[2020-12-30] MEDS: INSULIN ASPART (*BKC) 100 UNITS/ML 8 UNITS SUB-Q (21:37)
[2020-12-31] VITALS (18 sets, daily range): BP systolic 134–166; BP diastolic 44–72; PULSE 69–92; RESP 16–20; TEMP 35.7–36.9; O2SAT 96–100
[2020-12-31 01:32] LABS: Glucose Point of Care 402 mg/dl (65-105)
[2020-12-31] MEDS: INSULIN ASPART (*BKC) 100 UNITS/ML 12 UNITS SUB-Q (01:44)
[2020-12-31 04:34] LABS: Glucose Point of Care 130 mg/dl (65-105)
[2020-12-31 04:34] LABS: Glucose Point of Care 146 mg/dl (65-105)
[2020-12-31 05:27] LABS: Hematocrit 31.1 % (37.0-47.0); Hemoglobin 10.2 g/dL (12.0-15.0); Mean Corpuscular HGB Conc 32.8 g/dl (32-36); Mean Corpuscular Volume 91.5 fl (80-100); Mean Platelet Volume 12.9 fl (7.4-10.4); Platelet Count Result 171 k/mm3 (150-375); Red Cell Distribution Width 14.8 % (11.5-14.5); White Blood Count 5.7 K/mm3 (4.5-10.0)
[2020-12-31 05:39] LABS: Alanine Aminotransferase 10 U/L (4-35); Albumin Level 3.3 g/dL (3.5-5.1); Alkaline Phosphatase 44 U/L (38-126); Anion Gap 5 mmol/L (8-16); Aspartate Amino Transferase 25 U/L (14-36); Bilirubin,Total 0.3 mg/dL (0.2-1.3); Blood Urea Nitrogen 31 mg/dL (7-17); Calcium 8.9 mg/dL (8.4-10.2); Carbon Dioxide 28 mmol/L (22-30); Chloride 105 mmol/L (98-107); Estimated CRCL calculation 44 ml/min; Estimated Glomerular Filt Rate 41; Glucose 133 mg/dL (65-105); Potassium 3.9 mmol/L (3.4-5.0); Sodium 138 mmol/L (137-145)
[2020-12-31 06:58] LABS: Glucose Point of Care 96 mg/dl (65-105)
[2020-12-31 08:54] LABS: Glucose Point of Care 86 mg/dl (65-105)
[2020-12-31] MEDS: ASPIRIN 81 MG CHEWABLE TABLET PO (10:54)
[2020-12-31] MEDS: GABAPENTIN 300 MG CAPSULE PO ×2 (10:54→20:38)
[2020-12-31] MEDS: POTASSIUM CHLORIDE 10 MEQ TABLET.ER 20 MEQ PO (10:54)
[2020-12-31] MEDS: PANTOPRAZOLE 40 MG TABLET PO ×2 (10:55→20:33)
[2020-12-31] MEDS: LOSARTAN POTASSIUM 50 MG TABLET PO (10:55)
[2020-12-31] MEDS: ACETAMINOPHEN 325 MG TABLET 650 MG PO ×2 (10:57→20:31)
[2020-12-31] MEDS: methocarbamoL 750 MG TABLET PO ×3 (11:01→20:30)
[2020-12-31 12:23] LABS: Glucose Point of Care 118 mg/dl (65-105)
--- NOTE | 2020-12-31 14:04 | PM.CNCAR ---
Assessment and Plan Assessment and plan (1) Non-ST elevation NH (NSTEMI): Code(s): I21.4 - Non-ST elevation (NSTEMI) myocardial infarction Status: Acute Assessment and Plan: concerning typical exertional angina unstable a presentation elevated troponin, subtle ST abnormality, cannot rule out inferior NH with risk factors including age, hypertension, dyslipidemia, CKD. Abnormal stress test with prior inferior infarction and lateral ischemia EF 50% April 2020. Patient declined offers for coronary angiography previously but now agrees to proceed as recommended. Her symptoms are highly concerning for obstructive CAD as cause of her presentation and symptomatology. Patient verbalized understanding and agreed to proceed with plan of care. All questions answered to her satisfaction. Risks, benefits, and alternatives discussed in detail particular with regards to worsening renal function given the baseline CKD, stroke, mi, bleeding risk and the possibility of need for stent implantation or referral for CABG. discussed case with Dr. Arcos of Interventional Cardiology who agreed to proceed with angiography today. Discussed my concern given the fact that she had received contrast with CTA earlier today. Aspirin, Beta-leonard as tolerated, ARB. statin Strongly advised although patient is intolerant to statin therapy. recommendation to follow after coronary angiography. Telemetry, DVT prophylaxis. Keep patient NPO. GI workup as appropriate for her complaints depend upon coronary angiography. (2) Essential hypertension: Code(s): I10 - Essential (primary) hypertension Status: Acute Assessment and Plan: controlled. Continue to monitor. (3) Type 2 diabetes mellitus with hyperglycemia: Code(s): E11.65 - Type 2 diabetes mellitus with hyperglycemia Status: Acute Assessment and Plan: Per primary service. (4) CASTELAN (dyspnea on exertion): Code(s): R06.00 - Dyspnea, unspecified Status: Acute Assessment and Plan: Likely secondary to obstructive CAD in setting of NSTEMI. Recommendations to follow. (5) Chronic renal failure, stage 3 (moderate): Code(s): N18.3 - Chronic kidney disease, stage 3 (moderate) Status: Acute Assessment and Plan: Discussed risk for contrast exposure with CT angiogram of chest, coronary angiography but balance of NSTEMI with elevated troponin, unstable angina at presentation. See above. (6) Obstructive sleep apnea: Onset Date: ~04/2020 Code(s): G47.33 - Obstructive sleep apnea (adult) (pediatric) Status: Acute Assessment and Plan: Continue treatment CPAP. History of Present Illness History of Present Illness Consult date/time: Date of Service: 12/31/20 14:04 Cardiology consultation at the request of Dr. Soto for our opinion regarding chest pain and elevated troponin. Requesting physician: Sheldon Soto MD Consult reason: chest pain Reason For Visit: chest pain Narrative: Patient is a very pleasant 70-year-old female with a past medical history significant for prior stroke, hypertension, morbid obesity, dyslipidemia, diabetes mellitus, chronic kidney disease stage 3, GERD, pulmonary hypertension who presented to the emergency department with complaints of worsening exertional chest pain described as a burning and pressure-like sensation the left and right chest occasionally radiating to the left arm but generally feels more like indigestion. The symptoms are associated with a significant exertional dyspnea and worsening fatigue. Patient states she just feels terrible within symptoms are improved with rest but definitely exacerbated with walking or using stairs. No palpitations, fevers, chills. She also has pain in her rectum initially was convinced her symptoms were all GI related. She reports some cramping in her legs as well improved with muscle relaxants. Serial troponi
--- NOTE | 2020-12-31 15:18 | WPDMODSED ---
Moderate Sedation Note-Pt Data Patient Data Diagnosis: Chest pain syndrome concerning for ischemia Present Complaint: Exertional chest pain Procedure to be performed/Plan: Left heart catheterization Allergies Allergy/AdvReac Type Severity Reaction Status Date / Time Ctvpqax-Tcf-Dqq Reductase Allergy Mild Cramping Verified 12/30/20 09:56 Inhibitor of the Muscles Penicillins Allergy Itching Verified 12/30/20 09:56 Home Medications Medication Instructions Recorded Confirmed Type omeprazole 40 mg PO DAILY 11/14/19 12/30/20 History albuterol sulfate 2 puff INHALATION QID PRN #6.7 gm 02/18/20 12/30/20 Rx aspirin [Children's Aspirin] 81 mg PO DAILY@0800 #30 tablet 02/18/20 12/30/20 Rx pen needle, diabetic 32 gauge x #400 ea 06/11/20 12/30/20 Rx 1/4 fluticasone propionate 50 1 spray NASAL DAILY #15.8 ml 06/14/20 12/30/20 Rx mcg/actuation nasal spray,suspension cjnqkqtl-mld-qpwc-vitamin K [Adult 1 tablet PO DAILY 07/29/20 12/30/20 History Multivitamin with Iron] albuterol sulfate 1.25 mg/3 mL 1.25 mg INHALATION Q4-6H PRN #75 ml 09/21/20 12/30/20 Rx solution for nebulization methocarbamol 750 mg tablet 750 mg PO QID PRN #120 tablet 10/04/20 12/30/20 Rx insulin lispro 100 unit/mL 15 unit SUBCUT TID #15 ml 11/12/20 12/30/20 Rx subcutaneous pen bumetanide 2 mg PO DAILY 12/30/20 12/30/20 History docusate sodium [Colace Clear] 50 mg PO BID PRN 12/30/20 12/30/20 History gabapentin 300 mg PO TID 12/30/20 12/30/20 History insulin glargine [Lantus Solostar 50 unit SUBCUT HS 12/30/20 12/30/20 History U-100 Insulin] losartan [Cozaar] 50 mg PO DAILY 12/30/20 12/30/20 History potassium chloride [K-Tab] 20 meq PO DAILY 12/30/20 12/30/20 History triamcinolone acetonide See Rx Instructions .ROUTE .COMPLEX 12/30/20 12/30/20 History Current Medications: Active Medications Acetaminophen (Acetaminophen 325 Mg Tablet) 650 mg PO Q4H PRN PRN Reason: Mild Pain (1-3) or Fever Last Admin: 12/31/20 10:57 Dose: 650 mg Documented by: Albuterol (Albuterol Sulfate (*Sp) Aerosol 1 Puff) 2 puff INHALATION QID PRN PRN Reason: shortness of breath or wheezing Aspirin (Aspirin 81 Mg Chewable Tablet) 81 mg PO DAILY@0800 [facility] Last Admin: 12/31/20 10:54 Dose: 81 mg Documented by: Bumetanide (Bumetanide 1 Mg Tablet) 2 mg PO DAILY [facility] Last Admin: 12/31/20 10:50 Dose: Not Given Documented by: Dextrose (Dextrose 50% 25 Gm/50 Ml Syringe) 12.5 gm IV PUSH PRN PRN; Protocol PRN Reason: Hypoglycemia Docusate Sodium (Docusate Sodium Liq 100 Mg/10 Ml Udc) 50 mg PO BID PRN PRN Reason: constipation Fluticasone Propionate (Fluticasone Propionate 0.05% Na Spr 16 Gm Btl (*Bkc)) 1 spray NASAL DAILY [facility] Gabapentin (Gabapentin 300 Mg Capsule) 300 mg PO TID [facility] Stop: 01/30/21 09:01 Last Admin: 12/31/20 10:54 Dose: 300 mg Documented by: Glucagon (Glucagon For Inj 1 Mg Vial) 1 mg IM PRN PRN; Protocol PRN Reason: Hypoglycemia Glucose (Glucose Oral Gel 15 Gm Of Glucse In 37.5 Gm Tube) 15 gm PO PRN PRN; Protocol PRN Reason: Hypoglycemia Dextrose (Dextrose 5% 1,000 Ml) 1,000 mls @ 100 mls/hr IVPB PRN PRN; Protocol PRN Reason: Hypoglycemia Insulin Aspart (Insulin Aspart (*Bkc) 100 Units/Ml) 3 - [facility]; Protocol Last Admin: 12/31/20 12:36 Dose: Not Given Documented by: Insulin Aspart (Insulin Aspart (*Bkc) 100 Units/Ml) 15 units SUB-Q TID [facility] Stop: 01/30/21 09:01 Insulin Glargine (Insulin Glargine (*Bkc) 100 Units/Ml) 50 units SUB-Q HS [facility] Last Admin: 12/30/20 21:37 Dose: 50 units Documented by: Losartan Potassium (Losartan Potassium 50 Mg Tablet) 50 mg PO DAILY [facility] Last Admin: 12/31/20 10:55 Dose: 50 mg Documented by: Methocarbamol (Methocarbamol 750 Mg Tablet) 750 mg PO QID PRN PRN Reason: pain or spasm Last Admin: 12/31/20 11:01 Dose: 750 mg Documented by: Multivitamins/Calcium (Therapeutic Multivitamins/Minerals Tab (*Bkc)) 1 tablet PO DAILY [facility] Last Admin: 12/31/20 10:51 Dose: Not Given
--- NOTE | 2020-12-31 16:49 | WPDCARDPROC ---
Cardiac Cath Procedure Note Date of procedure:: 12/31/20 Performing physician:: Earl Arcos MD Indication:: accelerating angina Brief clinical history:: this is a 70-year-old woman who is morbidly obese who has been having intermittent episodes of exertional chest pain for more than a year. Angiography has previously been recommended but declined. The symptoms have now worsened and she has become agreeable to undergo a coronary angiogram. Procedure Procedure performed:: Coronary angiography left ventriculography Angio-Seal to right femoral artery Sedation/Medication given:: fentanyl 50 mg Versed 2 mg Access site:: right femoral artery Estimated blood loss:: 15-20 cc Procedure note:: patient was brought to the cardiac catheterization lab in postabsorptive state where the right femoral triangle was prepared and draped in usual fashion. Anesthesia was provided with 1% lidocaine infiltrated locally. Using modified Seldinger technique the right femoral artery punctured 5 vascular sheath was placed. After this I advanced a 5 Czech FL 5 catheter to the ascending aorta engaged to left coronary artery and performed left coronary injections and multiple projections. This catheter was then withdrawn I then advanced a 5 Czech JR4 catheter to the ascending aorta engaged the right coronary artery and injected the RCA in orthogonal views. Following this I used a 5 Czech angled pigtail catheter to assess left-sided hemodynamics and to injected LV g in the BECERRA projection. Following this an angiogram was done of the femoral artery through the sheath after which an 6 Czech Angio-Seal device was deployed with a good hemostatic result. 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 Findings:: Hemodynamics: Central aortic pressure is 160 over 62. Left ventricle 60 my end-diastolic pressure 36. No significant gradient on pullback across the aortic valve. Left ventricle: The LV is mildly enlarged the infero posterior wall is markedly hypodynamic to be nearly akinetic the anterior wall contracts relatively well the global ejection fraction of visually estimated to be 45%. The left main coronary artery is large in caliber there is mild distal stenosis in the left main representing no more than 30-40% luminal narrowing. Left anterior descending is a moderate caliber artery extending down to around the apex. The LAD is 95-99% stenosed at the ostium of the left main bifurcation. In the midportion of the LAD there appears to be is discrete 70-80% stenosis as well. Circumflex is a moderate caliber artery giving rise to a series of marginal branches and a posterior branch. The 1st OM branch is very small and arises as a ramus intermedius. This vessel has 99% proximal stenosis. The 2nd OM branch is angiographically quite small as well but without significant disease. Third OM branches medium in caliber and free of significant disease the trunk of the circumflex however prior to this has diffuse 80-90% stenosis. Distal to this there is a posterior circumflex branch that also is moderate caliber. The right coronary artery is 100% occluded at its ostium. 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 Conclusion:: 1. Severe three-vessel coronary artery disease with chronic total occlusion of the proximal RCA which is collateralized distally to the RPDA and RPL, high-grade 99% ostial LAD stenosis, 99% stenosis of small ramus intermedius branch which in this patient is equivalent to OM1. Diffuse high-grade stenosis in the trunk of the circumflex embarrassing the OM3 branch as well as the posterior circumflex which are both moderate-sized vessels that appear to be reasonable targets for revascularization. 2. Infero posterior hypokinesia global ejection fraction is in the vicinity of 45% by vis
--- NOTE | 2020-12-31 16:50 | PM.IMPN ---
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 Initial troponin elevated and climbed to 0.694. EKG showing NSR with first degree and Q's in III and aVF. BNP 1650 but CXR just showing CMG. She was admitted for observation to the IMU. DDimer was positive but LE venous doppler was negative; CTA of the chest negative for PE. For her DM, A1c was 10.5. She is on sliding scale insulin, Accu-Cheks, and hypoglycemic protocol. Lantus continued but held Novolog at meals and patient kept NPO until seen by Cardiology. Cardiology saw patietn today and plan for LHC today. She does have CKD and Cr 1.4 on admission (baseline) and 1.5 today. She did have a CTA today already but patient and Cardiology were aware of this and risks explained. She is on NS currently. Will hold diuretics and ARB. LHC showing severe 3-vessel CAD with: - chronic total occlusion of the proximal RCA which is collateralized distally to the RPDA and RPL - high-grade 99% ostial LAD stenosis - 99% stenosis of small ramus intermedius branch which in this patient is equivalent to OM1 - diffuse high-grade stenosis in the trunk of the circumflex embarrassing the OM3 branch as well as the posterior circumflex which are both moderate-sized vessels that appear to be reasonable targets for revascularization. - Inferoposterior hypokinesia with a global ejection fraction is in the vicinity of 45% by visual estimation Patient will need surgical revascularization. Continue ASA. She is allergic to statin therapy. Add zetia. Add Xanax for her anxiety. Glucose 'normal' today off her mealtime novolog. Will continue to hold mealtime Novolog and continue Lantus and sliding scale. She is probably brittle since she was in the 400's yesterday. Monitor renal function closely. Subjective Date/time seen: 12/31/20 16:50 Interval history: 70yo female with HTN, DM, CKD and hx of CVA here for left sided chest pain. Patient back from her cath. She states I'm a failure and there are so many blockages . She is tearful. She denies CP or SOB. No n/v. She complains of back pain and has chronic back pain. Exam Narrative: Exam Narrative: AF 98.4 150/63 73 16 98% ra Gen - NARD Chest - clear anteriorly,nml RR CV - RRR S1/S2 Abd - Soft, obese, NT, +BS Ext - 1+ pedal edema. right femoral cath site dressing clean and dry without hematoma. Psych - tearful and crying; upset Skin - Warm and dry Objective Data Vital Signs Vital Signs: Vital Signs - 24 hr 12/30/20 18:00 12/30/20 19:49 12/30/20 20:00 Temperature 97.1 F L Pulse Rate 74 100 70 Respiratory Rate 18 Blood Pressure 142/52 H Pulse Oximetry 99 12/30/20 22:00 12/30/20 23:33 12/31/20 00:00 Temperature 99.4 F Pulse Rate 74 83 74 Respiratory Rate 18 Blood Pressure 152/98 H Pulse Oximetry 94 12/31/20 02:00 12/31/20 04:00 12/31/20 06:00 Temperature 97 F L Pulse Rate 72 74 71 Respiratory Rate 16 Blood Pressure 138/59 L Pulse Oximetry 96 12/31/20 08:00 12/31/20 10:0
[2020-12-31 18:54] LABS: Glucose Point of Care 111 mg/dl (65-105)
[2020-12-31] MEDS: SODIUM CHLORIDE 0.9% IV 1,000 ML 125 ML IV CONT (19:15)
[2020-12-31] MEDS: ALPRAZolam (*CRX) 0.125 MG TABLET PO (20:30)
[2020-12-31 21:07] LABS: Glucose Point of Care 241 mg/dl (65-105)
[2020-12-31] MEDS: INSULIN GLARGINE (*BKC) 100 UNITS/ML 50 UNITS SUB-Q (21:57)
[2021-01-01] VITALS (13 sets, daily range): BP systolic 139–148; BP diastolic 49–60; PULSE 73–85; RESP 16–21; TEMP 35.6–36.4; O2SAT 96–99
[2021-01-01] MEDS: methocarbamoL 750 MG TABLET PO ×2 (05:04→09:44)
[2021-01-01 05:23] LABS: Hematocrit 31.9 % (37.0-47.0); Hemoglobin 10.1 g/dL (12.0-15.0); Mean Corpuscular HGB Conc 31.7 g/dl (32-36); Mean Corpuscular Hemoglobin 29.3 pg (26-34); Mean Corpuscular Volume 92.5 fl (80-100); Platelet Count Result 171 k/mm3 (150-375); Red Blood Count 3.45 M/mm3 (4.2-5.4); White Blood Count 5.4 K/mm3 (4.5-10.0)
[2021-01-01 05:45] LABS: Albumin Level 3.1 g/dL (3.5-5.1); Anion Gap 6 mmol/L (8-16); Blood Urea Nitrogen 23 mg/dL (7-17); Calcium 8.6 mg/dL (8.4-10.2); Carbon Dioxide 28 mmol/L (22-30); Chloride 105 mmol/L (98-107); Estimated CRCL calculation 47 ml/min; Estimated Glomerular Filt Rate 45; Glucose 226 mg/dL (65-105); Magnesium 1.8 mg/dL (1.6-2.3); Phosphorus 3.6 mg/dL (2.5-4.5); Potassium 4.2 mmol/L (3.4-5.0); Sodium 139 mmol/L (137-145)
[2021-01-01 08:21] LABS: Glucose Point of Care 106 mg/dl (65-105)
[2021-01-01] MEDS: TRIAMCINOLONE ACET 0.1% OINT 15 GM TUBE 1 APPLIC TOPICAL (09:40)
[2021-01-01] MEDS: GABAPENTIN 300 MG CAPSULE PO ×3 (09:41→17:47)
[2021-01-01] MEDS: THERAPEUTIC MULTIVITAMINS/MINERALS TAB (*BKC) 1 TABLET PO (09:41)
[2021-01-01] MEDS: ASPIRIN 81 MG CHEWABLE TABLET PO (09:41)
[2021-01-01] MEDS: PANTOPRAZOLE 40 MG TABLET PO (09:41)
[2021-01-01] MEDS: EZETIMIBE 5 MG TABLET PO (09:41)
[2021-01-01] MEDS: FLUTICASONE PROPIONATE 0.05% NA SPR 16 GM BTL (*BKC) 1 SPRAY NASAL (09:42)
[2021-01-01] MEDS: ALPRAZolam (*CRX) 0.125 MG TABLET PO (09:45)
[2021-01-01 12:17] LABS: Glucose Point of Care 158 mg/dl (65-105)
--- NOTE | 2021-01-01 12:42 | PM.PNCARD ---
Progress Note: A&P Assessment and Plan (1) Non-ST elevation AL (NSTEMI): Code(s): I21.4 - Non-ST elevation (NSTEMI) myocardial infarction Status: Acute Assessment and Plan: onclusion:: 1. Severe three-vessel coronary artery disease with chronic total occlusion of the proximal RCA which is collateralized distally to the RPDA and RPL, high-grade 99% ostial LAD stenosis, 99% stenosis of small ramus intermedius branch which in this patient is equivalent to OM1. Diffuse high-grade stenosis in the trunk of the circumflex embarrassing the OM3 branch as well as the posterior circumflex which are both moderate-sized vessels that appear to be reasonable targets for revascularization. 2. Infero posterior hypokinesia global ejection fraction is in the vicinity of 45% by visual estimation 3. high LVEDP 4. surgical revascularization will be recommended in this setting After a very long discussion and multiple visits with the patient, she wishes to be transferred to [facility]. Will work on transfer to [facility] for CABG. Will order 2D echocardiogram with Doppler. (2) Essential hypertension: Code(s): I10 - Essential (primary) hypertension Status: Acute Assessment and Plan: controlled. Continue to monitor. (3) Type 2 diabetes mellitus with hyperglycemia: Code(s): E11.65 - Type 2 diabetes mellitus with hyperglycemia Status: Acute Assessment and Plan: Per primary service. (4) CASTELAN (dyspnea on exertion): Code(s): R06.00 - Dyspnea, unspecified Status: Acute Assessment and Plan: Likely secondary to obstructive CAD in setting of NSTEMI. (5) Chronic renal failure, stage 3 (moderate): Code(s): N18.3 - Chronic kidney disease, stage 3 (moderate) Status: Acute Assessment and Plan: Will need to follow renal function. Basic metabolic panel in a.m.. (6) Obstructive sleep apnea: Onset Date: ~04/2020 Code(s): G47.33 - Obstructive sleep apnea (adult) (pediatric) Status: Acute Assessment and Plan: Continue treatment CPAP. (7) Ischemic cardiomyopathy: Code(s): I25.5 - Ischemic cardiomyopathy Status: Acute Assessment and Plan: Mild Subjective Date/time seen: 01/01/21 12:42 Interval history: 70yo female with HTN, DM, CKD and hx of CVA here for left sided chest pain. Date of service 01/01/2021: Right groin is stable. She feels okay. She is tearful and anxious and nervous. She has no chest pain or shortness of breath Review of Systems Review of Systems: All systems reviewed & are unremarkable except as noted in HPI and below Constitutional: Constitutional: Reports as per HPI, Reports no additional constitutional complaints, Reports fatigue, Reports lethargy and Reports weakness Eyes: Eyes: Reports as per HPI and Reports no additional eye complaints ENT: Reports system reviewed and no additional complaints, except as documented and Reports as per HPI Cardiovascular: Cardiovascular: Reports as per HPI, Reports no additional cardiovascular complaints, Reports chest pain, Denies diaphoresis, Reports pedal edema, Reports leg edema, Denies palpitations, Reports dyspnea and Reports dyspnea on exertion Respiratory: Respiratory: Reports as per HPI, Reports no additional respiratory complaints, Reports dyspnea and Reports dyspnea on exertion Gastrointestinal: Gastrointestinal: Reports as per HPI, Reports no additional gastrointestinal complaints, Reports abdominal pain, Denies melena, Denies bloating, Denies hematochezia, Reports heartburn, Reports nausea and Denies hematemesis Genitourinary: Genitourinary: Reports as per HPI, Denies hematuria and Denies dysuria Musculoskeletal: Musculoskeletal: Reports no additional musculoskeletal complaints, Reports as per HPI and Reports myalgias Integumentary/Breasts: Skin/Breast: Reports system reviewed and no additional complaints, except as docu
--- NOTE | 2021-01-01 15:28 | PM.TDS ---
Transfer Discharge Sum: Prov Provider Date of admission: 12/30/20 13:39 Primary care physician: Earl Mullen MD Admitting clinician: Daljit Dorantes MD Consults: 12/30/20 13:20 Consult to Physician Routine Comment: MD IS AWARE OF THE CONSULT Consulting Provider: Gerardo Sanchez call center professional/MD group to consult: [facility] Reason for consultation: chest pain Has provider been notified: Yes DS: Admitting Diagnosis Admitting Diagnosis Admitting Diagnosis: Left-sided chest pain DS: Discharge Diagnosis Discharge Diagnosis (1) Chest pain: Code(s): R07.9 - Chest pain, unspecified Status: Acute (2) Elevated troponin: Code(s): R77.8 - Other specified abnormalities of plasma proteins Status: Acute (3) Essential hypertension: Code(s): I10 - Essential (primary) hypertension Status: Acute (4) Insulin dependent type 2 diabetes mellitus: Code(s): E11.9 - Type 2 diabetes mellitus without complications; Z79.4 - senior living (current) use of insulin Status: Acute (5) Chronic kidney disease, stage 3: Code(s): N18.3 - Chronic kidney disease, stage 3 (moderate) Status: Chronic (6) Chronic anemia: Code(s): D64.9 - Anemia, unspecified Status: Acute (7) Gastroesophageal reflux disease: Code(s): K21.9 - Gastro-esophageal reflux disease without esophagitis Status: Chronic Transfer Discharge Sum: Med Medications Active and Home Medications: Home Medications omeprazole 40 mg PO DAILY 11/14/19 [History Confirmed 12/30/20] albuterol sulfate 2 puff INHALATION QID PRN #6.7 gm 02/18/20 [Rx Confirmed 12/30/20] aspirin [Children's Aspirin] 81 mg PO DAILY@0800 #30 tablet 02/18/20 [Rx Confirmed 12/30/20] pen needle, diabetic 32 gauge x 1/4 #400 ea 06/11/20 [Rx Confirmed 12/30/20] fluticasone propionate 50 mcg/actuation nasal spray,suspension 1 spray NASAL DAILY #15.8 ml 06/14/20 [Rx Confirmed 12/30/20] fvnzdgzr-cvn-jtzh-vitamin K [Adult Multivitamin with Iron] 1 tablet PO DAILY 07/29/20 [History Confirmed 12/30/20] albuterol sulfate 1.25 mg/3 mL solution for nebulization 1.25 mg INHALATION Q4-6H PRN #75 ml 09/21/20 [Rx Confirmed 12/30/20] methocarbamol 750 mg tablet 750 mg PO QID PRN #120 tablet 10/04/20 [Rx Confirmed 12/30/20] insulin lispro 100 unit/mL subcutaneous pen 15 unit SUBCUT TID #15 ml 11/12/20 [Rx Confirmed 12/30/20] bumetanide 2 mg PO DAILY 12/30/20 [History Confirmed 12/30/20] docusate sodium [Colace Clear] 50 mg PO BID PRN 12/30/20 [History Confirmed 12/30/20] gabapentin 300 mg PO TID 12/30/20 [History Confirmed 12/30/20] insulin glargine [Lantus Solostar U-100 Insulin] 50 unit SUBCUT HS 12/30/20 [History Confirmed 12/30/20] losartan [Cozaar] 50 mg PO DAILY 12/30/20 [History Confirmed 12/30/20] potassium chloride [K-Tab] 20 meq PO DAILY 12/30/20 [History Confirmed 12/30/20] triamcinolone acetonide See Rx Instructions .ROUTE .COMPLEX 12/30/20 [History Confirmed 12/30/20] Active Medications Acetaminophen (Acetaminophen 325 Mg Tablet) 650 mg PO Q4H PRN PRN Reason: Mild Pain (1-3) or Fever Last Admin: 12/31/20 20:31 Dose: 650 mg Documented by: Albuterol (Albuterol Sulfate (*Sp) Aerosol 1 Puff) 2 puff INHALATION QID PRN PRN Reason: shortness of breath or wheezing Alprazolam (Alprazolam (*Crx) 0.125 Mg Tablet) 0.125 mg PO TID PRN PRN Reason: Anxiety Last Admin: 01/01/21 09:45 Dose: 0.125 mg Documented by: Aspirin (Aspirin 81 Mg Chewable Tablet) 81 mg PO DAILY@0800 [facility] Last Admin: 01/01/21 09:41 Dose: 81 mg Documented by: Bumetanide (Bumetanide 1 Mg Tablet) 2 mg PO DAILY [facility] Last Admin: 12/31/20 10:50 Dose: Not Given Documented by: Dextrose (Dextrose 50% 25 Gm/50 Ml Syringe) 12.5 gm IV PUSH PRN PRN; Protocol PRN Reason: Hypoglycemia Docusate Sodium (Docusate Sodium Liq 100 Mg/10 Ml Udc) 50 mg PO BID PRN PRN Reason: constipation Ezetimibe (Ezetimibe 5 Mg Tablet) 5 [facility] Last Admin: 01/01/21 09:41 Dos
[2021-01-01 16:52] LABS: Glucose Point of Care 260 mg/dl (65-105)
[2021-01-01] MEDS: INSULIN ASPART (*BKC) 100 UNITS/ML SUB-Q (17:49)
== END 2021-01-01 19:39 | disposition short-term general hospital (02) | DRG 281 ==
LOC: ANHED 13:55 → ANHIMU 17:47
PROVIDERS: Physician Assistant; Specialist; Admitting Provider Internal Medicine; Emergency Provider Emergency Medicine; PCP Emergency Medicine; Visit Provider Family Medicine
PROC: 4A023N7 Measurement of Cardiac Sampling and Pressure, Left Heart, Percutaneous Approach (ICD-10-PCS; CPT 93452; principal; 2020-12-31 14:30)
PROC: 4A023N7 Measurement of Cardiac Sampling and Pressure, Left Heart, Percutaneous Approach (ICD-10-PCS; 2020-12-31 14:30)
DX: I21.4 Non-ST elevation (NSTEMI) myocardial infarction (principal); Z68.43 Body mass index [BMI] 50.0-59.9, adult; I27.20 Pulmonary hypertension, unspecified; I25.10 Atherosclerotic heart disease of native coronary artery without angina pectoris; E66.01 Morbid (severe) obesity due to excess calories; E11.22 Type 2 diabetes mellitus with diabetic chronic kidney disease; I12.9 Hypertensive chronic kidney disease with stage 1 through stage 4 chronic kidney disease, or unspecified chronic kidney disease; N18.30 Chronic kidney disease, stage 3 unspecified; E11.65 Type 2 diabetes mellitus with hyperglycemia; E11.319 Type 2 diabetes mellitus with unspecified diabetic retinopathy without macular edema; E11.40 Type 2 diabetes mellitus with diabetic neuropathy, unspecified; G47.33 Obstructive sleep apnea (adult) (pediatric); D64.9 Anemia, unspecified; K21.9 Gastro-esophageal reflux disease without esophagitis; E78.5 Hyperlipidemia, unspecified; Z79.4 Long term (current) use of insulin; Z79.899 Other long term (current) drug therapy; Z86.73 Personal history of transient ischemic attack (TIA), and cerebral infarction without residual deficits; Z98.49 Cataract extraction status, unspecified eye
CPT/HCPCS: 36415; 71046; 71275; 80053; 80069; 80076; 82948; 83036; 83735; 83880; 84443; 84484; 85025; 85027; 85380; 85610; 85730; 93005; 93458; 93971; 96374; 99285; A9270; C1760; C1887; C1894; G0269; J1644; J1650; J1815; J2250; J2270; J3010; J7030; J7040; Q9967

== ENCOUNTER 2021-03-10 12:59 | Outpatient (CLI) | payer MEDICARE, SELFPAY ==
--- NOTE | ~2021-03-10 | CT_ITS ---
EXAMINATION: CT BRAIN W/O DATE: 03/10/2021 14:56 INDICATION: Status post fall. Headache. TECHNIQUE: Computed tomography (CT) of the head was performed without intravenous contrast. The dose- length product was 681.00 mGy-cm. COMPARISON: No prior studies for comparison. FINDINGS: No acute intracranial hemorrhage, infarction, mass or mass effect. There are chronic infarc tions of the right frontal, parietal and occipital lobes. There are scattered mild periventricular an d subcortical white matter changes, most likely related to small vessel ischemic disease (microangiop athy). There are multiple masses isodense to shepard matter lining the ventricles, consistent with grade matter heterotopia. No ventriculomegaly or midline shift. Midline sagittal images demonstrate a normal corpus callosum, c raniovertebral junction and sella turcica. Basilar cisterns are patent. Paranasal sinuses and mastoids are pneumatized. No depressed skull fractures. IMPRESSION: 1. No acute intracranial abnormality. 2: Chronic infarctions right frontal, parietal and occipital lobes. 3: Shepard matter heterotopia. Reviewed, dictated and finalized at location A.
[2021-03-10 13:47] LABS: Basophils Percent Auto 0.2 % (0.2-1.2); Eosinophils Absolute Auto 0.1 K/mm3 (0-0.3); Eosinophils Percent Auto 1.3 % (0-4.4); Hematocrit 33.4 % (37.0-47.0); Hemoglobin 10.7 g/dL (12.0-15.0); Immature Granulocyte Absolute 0.02 K/mm3 (0.00-0.031); Immature Granulocyte Percent A 0.2 % (0-0.5); Lymphocytes Absolute Auto 1.99 K/mm3 (0.9-3.2); Lymphocytes Percent Auto 24.4 % (18.3-44.2); Mean Corpuscular Hemoglobin 30.8 pg (26-34); Mean Corpuscular Volume 96.3 fl (80-100); Mean Platelet Volume 11.8 fl (7.4-10.4); Monocytes Absolute Auto 1.1 K/mm3 (0.1-0.6); Monocytes Percent Auto 13.5 % (2.6-8.5); Neutrophils Absolute Auto 4.9 K/mm3 (1.3-6.7); Neutrophils Percent Auto 60.4 % (45.5-73.1); Platelet Count Result 203 k/mm3 (150-375); Red Blood Count 3.47 M/mm3 (4.2-5.4); Red Cell Distribution Width 14.6 % (11.5-14.5); White Blood Count 8.2 K/mm3 (4.5-10.0)
[2021-03-10 14:18] LABS: Anion Gap 8 mmol/L (8-16); Blood Urea Nitrogen 19 mg/dL (7-17); Calcium 9.6 mg/dL (8.4-10.2); Carbon Dioxide 30 mmol/L (22-30); Chloride 101 mmol/L (98-107); Estimated Glomerular Filt Rate 41; Glucose 140 mg/dL (65-110); Potassium 3.9 mmol/L (3.4-5.0); Sodium 139 mmol/L (137-145)
== END 2021-03-10 13:00 | disposition home or self-care (01) ==
PROVIDERS: PCP Physician Assistant; Referring Provider Internal Medicine Cardiovascular Disease; Visit Provider Physician Assistant
DX: D50.8 Other iron deficiency anemias (principal); I25.10 Atherosclerotic heart disease of native coronary artery without angina pectoris; R93.0 Abnormal findings on diagnostic imaging of skull and head, not elsewhere classified
CPT/HCPCS: 36415; 70450; 80048; 85025

== ENCOUNTER 2021-03-14 15:49 | Outpatient (CLI) | payer MEDICARE, SELFPAY ==
--- NOTE | ~2021-03-14 | XR_ITS ---
EXAMINATION: XR knee RT 3V DATE: 03/14/2021 16:43 INDICATION: Anterior right knee pain. Fall 2 days ago. TECHNIQUE: 3 views of right knee were obtained. COMPARISON: Right knee radiographs 08/22/2019 FINDINGS: Bone alignment is normal. No fracture. There is severe osteoarthritis of medial, moderate o steoarthritis of patellofemoral compartment, and mild osteoarthritis of lateral compartment. No knee joint effusion. There are surgical clips in the posteromedial soft tissues. IMPRESSION: 1. Severe right knee osteoarthritis. Reviewed, dictated and finalized at location A.
--- NOTE | ~2021-03-14 | XR_ITS ---
XR hand LT min 3V DATE: 03/14/2021 16:43 INDICATION: Third through fifth digit pain following a fall 2 days ago TECHNIQUE: 3 views COMPARISON: None FINDINGS: There is chondrocalcinosis at the second metacarpophalangeal joint. There is mild osteoarthritis involving first carpometacarpal and first interphalangeal joints. No fracture or dislocation, periosteal reaction or bone destruction. IMPRESSION: Chondrocalcinosis of the second metacarpophalangeal joint Mild osteoarthritis Reviewed, dictated and finalized at location A.
[2021-03-14 16:52] LABS: Magnesium 1.7 mg/dL (1.6-2.3)
[2021-03-14 17:00] LABS: Rheumatoid Factor < 8.6 IU/ML (<12)
[2021-03-17 04:58] LABS: Albumin 3.2 g/dL (3.8-4.8); Alpha 1 Globulin 0.4 g/dL (0.2-0.3); Alpha 2 Globulin 0.9 g/dL (0.5-0.9); Beta 1 Globulin 0.4 g/dL (0.4-0.6); Gamma Globulin 1.1 g/dL (0.8-1.7); Protein, Total 6.4 g/dL (6.1-8.1)
== END 2021-03-14 15:50 | disposition home or self-care (01) ==
PROVIDERS: PCP Physician Assistant; Visit Provider Physician Assistant
DX: M62.838 Other muscle spasm (principal); M54.42 Lumbago with sciatica, left side; M54.41 Lumbago with sciatica, right side; G89.29 Other chronic pain; M19.042 Primary osteoarthritis, left hand; M17.11 Unilateral primary osteoarthritis, right knee
CPT/HCPCS: 36415; 73130; 73562; 83735; 84155; 84165; 86038; 86430

== ENCOUNTER 2021-04-22 13:17 | Emergency (ER) | payer MEDICARE, SELFPAY ==
--- NOTE | ~2021-04-22 | XR_ITS ---
EXAMINATION: XR chest 2V DATE: 04/22/2021 14:15 INDICATION: Shortness of breath and leg swelling TECHNIQUE: frontal and lateral views of the chest were obtained. COMPARISON: Chest radiograph dated 12/30/2020 FINDINGS: The lungs remain clear with no focal airspace opacities, pulmonary edema, pleural effusion or pneumot horax. Cardiomegaly with small left paracardial fat pad. Median sternotomy with wires and plain screw fixations and mediastinal surgical clips are seen, likely from prior coronary artery bypass grafting . There are also retained epicardial pacemaker leads at the anterior heart base. Mild to moderate tho racic spondylosis. IMPRESSION: 1. No acute cardiopulmonary disease. 2. Cardiomegaly. Reviewed, dictated and finalized at location A.
--- NOTE | ~2021-04-22 | US_ITS ---
EXAMINATION: US venous doppler LE RT DATE: 04/22/2021 16:16 INDICATION: Right lower limb swelling and pain TECHNIQUE: Shepard scale images without and with compression and Doppler images of the right lower extre mity veins were obtained. COMPARISON: 12/30/2020 FINDINGS: The right common femoral vein, profunda femoral vein, femoral vein, popliteal vein, peronea l trunk, posterior tibial veins, and greater saphenous vein are patent. IMPRESSION: 1. Patent right lower extremity veins. No evidence of deep venous thrombosis. Reviewed, dictated and finalized at location A.
--- NOTE | ~2021-04-22 | NM_ITS ---
EXAMINATION: NM pulmonary perfusion DATE: 04/22/2021 19:59 INDICATION: Shortness of breath TECHNIQUE: 5.1 mCi Tc-99m MAA was administered intravenously for perfusion images. Scintigraphic imag es of the chest were obtained. COMPARISON: None FINDINGS: Perfusion images show normal perfusion. Cardiomegaly is noted. IMPRESSION: 1. Low probability for pulmonary embolism. Reviewed, dictated and finalized at location A.
--- NOTE | 2021-04-22 13:21 | ECG_ITS ---
Measurements Intervals [place] Rate: 77 P: 12 AR: 202 QRS: 1 QRSD: 105 T: 87 QT: 406 QTc: 461 Interpretive Statements SINUS RHYTHM BORDERLINE AV CONDUCTION DELAY ANTERIOR INFARCT, AGE INDETERMINATE INFERIOR INFARCT, AGE INDETERMINATE BORDERLINE ST-T WAVE ABNORMALITY- HIGH LATERAL LEADS ABNORMAL ECG Electronically Signed On 04-22-2021 13:37:20 CDT by Kiran Moss D.O.
[2021-04-22 13:43] VITALS: BP 181/70; PULSE 85; RESP 14; TEMP 36.7; O2SAT 100
[2021-04-22 13:53] LABS: Basophils Percent Auto 0.5 % (0.2-1.2); Eosinophils Absolute Auto 0.1 K/mm3 (0-0.3); Eosinophils Percent Auto 2.2 % (0-4.4); Hematocrit 32.7 % (37.0-47.0); Hemoglobin 10.2 g/dL (12.0-15.0); Immature Granulocyte Absolute 0.02 K/mm3 (0.00-0.031); Immature Granulocyte Percent A 0.3 % (0-0.5); Lymphocytes Percent Auto 30.1 % (18.3-44.2); Mean Corpuscular HGB Conc 31.2 g/dl (32-36); Mean Corpuscular Volume 99.4 fl (80-100); Mean Platelet Volume 12.3 fl (7.4-10.4); Monocytes Absolute Auto 0.7 K/mm3 (0.1-0.6); Monocytes Percent Auto 11.7 % (2.6-8.5); Neutrophils Absolute Auto 3.3 K/mm3 (1.3-6.7); Neutrophils Percent Auto 55.2 % (45.5-73.1); Platelet Count Result 186 k/mm3 (150-375); Red Blood Count 3.29 M/mm3 (4.2-5.4); Red Cell Distribution Width 14.4 % (11.5-14.5)
[2021-04-22 14:07] LABS: Anion Gap 11 mmol/L (8-16); Blood Urea Nitrogen 30 mg/dL (7-17); Carbon Dioxide 27 mmol/L (22-30); Chloride 101 mmol/L (98-107); Estimated CRCL calculation 37 ml/min; Estimated Glomerular Filt Rate 36; Glucose 261 mg/dL (65-110); Sodium 139 mmol/L (137-145)
[2021-04-22 14:30] LABS: Troponin I 0.032 ng/mL (0.000-0.034)
--- NOTE | 2021-04-22 15:44 | ED.SOB ---
HPI - SOB/Dyspnea General Chief Complaint: Shortness of Breath/Dyspnea <Maria Elena Degroot MD - Last Filed: 04/22/21 19:19> Stated Complaint: LEG PAIN, INT SOB <Maria Elena Degroot MD - Last Filed: 04/22/21 19:19> Time Seen by Provider: 04/22/21 15:18 <Maria Elena Degroot MD - Last Filed: 04/22/21 19:19> Source: patient <Maria Elena Degroot MD - Last Filed: 04/22/21 19:19> Mode of arrival: ambulatory <Maria Elena Degroot MD - Last Filed: 04/22/21 19:19> History of Present Illness HPI Narrative: The patient is a 70 yo female with a history of CKD, HTN, HLD, DM, recent CABG, who presents for evaluation of dyspnea. Dyspnea has been present over the past two days. It is mild in nature, but quite persistent. She also reports mild dry cough. Patient reports mild lightheadedness without dizziness. No syncope or other prodromal symptoms. No chest pain. Patient also reports RLE edema which has been present since surgery in January 10. Patient also with pain in her right lower back and radiates into her right leg, on the outside of her leg on the lateral side. Sharp, shooting pain worsened by position. Patient also reports constipation with generalized abdominal pain. <Maria Elena Degroot MD - Last Filed: 04/22/21 19:19> Related Data Home Medications: Home Medications Medication Instructions Recorded Confirmed bumetanide 1 mg tablet 1 mg PO BID 02/18/21 04/15/21 clopidogrel 75 mg tablet 75 mg PO DAILY 02/18/21 04/15/21 metoprolol tartrate 37.5 mg tablet 37.5 mg PO Q12H 02/18/21 04/15/21 potassium chloride 10 mEq 20 meq PO BID tablet 02/18/21 04/15/21 tablet,extended release rosuvastatin 10 mg tablet 10 mg PO DAILY 02/18/21 04/15/21 tramadol 50 mg tablet See Rx Instructions .ROUTE .COMPLEX 02/18/21 04/15/21 blood sugar diagnostic 02/21/21 04/15/21 cholecalciferol (vitamin D3) 25 See Rx Instructions PO DAILY 02/21/21 04/15/21 mcg (1,000 unit) tablet lancets 28 gauge 02/21/21 04/15/21 levothyroxine 50 mcg tablet 50 mcg PO DAILY 02/21/21 04/15/21 insulin lispro 100 unit/mL See Rx Instructions .ROUTE 04/04/21 04/15/21 subcutaneous pen .COMPLEX ml gabapentin [Neurontin] 300 mg PO TID 04/15/21 04/15/21 insulin glargine [Lantus Solostar 32 unit SUBCUT HS 04/15/21 04/15/21 U-100 Insulin] pantoprazole 40 mg PO HS 04/15/21 04/15/21 <Maria Elena Degroot MD - Last Filed: 04/22/21 19:19> Allergies/Adverse Reactions: Allergies Allergy/AdvReac Type Severity Reaction Status Date / Time [id number]-[id number] Reductase Allergy Mild Cramping Verified 04/22/21 13:19 Inhibitor of the Muscles Penicillins Allergy Itching Verified 04/22/21 13:19 <Maria Elena Degroot MD - Last Filed: 04/22/21 19:19> Review of Systems Review of Systems: CONSTITUTIONAL: Denies fever, chills, or sweats. EYES: Denies visual changes, redness, or discharge. ENT: Denies rhinorrhea, congestion, sore throat, or otalgia. CARDIOVASCULAR: Denies chest pain, palpitations, or edema. RESPIRATORY: Denies cough, reports dyspnea with exertion GASTROINTESTINAL: Reports abdominal pain, without nausea or vomiting GENITOURINARY: Denies dysuria or hematuria. SKIN: Denies rash or itching. MUSCULOSKELETAL: Reports right lower back pain NEUROLOGIC: Denies headache, numbness, or weakness. <Maria Elena Degroot MD - Last Filed: 04/22/21 19:19> [facility], [facility] Past Medical History Medical History: Medical History Anxiety Chronic anemia Chronic kidney disease, stage 3 Baseline creatinine appears to be around 1.50. Dyslipidemia Essential hypertension Gastroesophageal reflux disease Grade II diastolic dysfunction Ejection fraction at that time was 60 to 65%. History of cerebrovascular accident (01/2015) Residual left-sided paresthesias. Insulin dependent type 2 diabetes mellitus Complicated by diabetic retinopathy, neuropathy, and nephropathy. Hemoglobin A1c was 8.4% in September 2020. Morbid o
[2021-04-22 17:16] LABS: NT Pro B Type Natriuretic Pept 912 pg/mL (5-100)
[2021-04-22 18:44] LABS: D Dimer 2.28 ug/mL (<0.48)
[2021-04-22 21:54] VITALS: BP 151/71; PULSE 75; RESP 20; O2SAT 98
== END 2021-04-22 21:52 | disposition home or self-care (01) ==
PROVIDERS: Emergency Medicine; Emergency Provider Emergency Medicine; PCP Physician Assistant
DX: I13.0 Hypertensive heart and chronic kidney disease with heart failure and stage 1 through stage 4 chronic kidney disease, or unspecified chronic kidney disease (principal); I50.9 Heart failure, unspecified; E78.5 Hyperlipidemia, unspecified; I25.10 Atherosclerotic heart disease of native coronary artery without angina pectoris; E11.22 Type 2 diabetes mellitus with diabetic chronic kidney disease; N18.30 Chronic kidney disease, stage 3 unspecified; R60.0 Localized edema; D64.9 Anemia, unspecified; I27.21 Secondary pulmonary arterial hypertension; I69.954 Hemiplegia and hemiparesis following unspecified cerebrovascular disease affecting left non-dominant side; G47.33 Obstructive sleep apnea (adult) (pediatric); K21.9 Gastro-esophageal reflux disease without esophagitis; E66.01 Morbid (severe) obesity due to excess calories; Z68.42 Body mass index [BMI] 45.0-49.9, adult; Z95.1 Presence of aortocoronary bypass graft; E89.0 Postprocedural hypothyroidism; Z96.651 Presence of right artificial knee joint; Z79.4 Long term (current) use of insulin; I51.7 Cardiomegaly
CPT/HCPCS: 36415; 71046; 78580; 80048; 83880; 84484; 85025; 85380; 93005; 93971; 99284; A9540

== ENCOUNTER → 2021-04-29 15:34 | Outpatient (CLI) | payer MEDICARE, SELFPAY ==
--- NOTE | ~2021-04-29 | XR_ITS ---
EXAMINATION: XR abdomen/kub 1V DATE: 04/29/2021 16:21 INDICATION: Constipation. TECHNIQUE: A supine view of the abdomen on 2 radiographs was obtained. COMPARISON: Abdomen radiographs 05/19/2015, CT abdomen and pelvis 02/16/2020 FINDINGS: There are no dilated loops of bowel. There is a moderate volume of stool in the colon. Ther e are retained epicardial pacer wires. Median sternotomy wires and mediastinal surgical clips are see n, likely from prior coronary artery bypass grafting. IMPRESSION: 1. Nonobstructive bowel gas pattern. Reviewed, dictated and finalized at location A.
== END ==
PROVIDERS: PCP Family Medicine; Visit Provider Family Medicine
DX: M79.672 Pain in left foot (principal)
CPT/HCPCS: 74018

== ENCOUNTER → 2021-05-27 12:36 | Outpatient (CLI) | payer MEDICARE, SELFPAY ==
--- NOTE | ~2021-05-27 | XR_ITS ---
XR knee RT 2V DATE: 05/27/2021 12:57 INDICATION: Acute right knee pain TECHNIQUE: Standing AP and lateral views COMPARISON: None FINDINGS: There is tricompartment osteoarthritis, most severe at the medial and patellofemoral compar tments. There is chondrocalcinosis. No fracture or dislocation or joint effusion. IMPRESSION: Prominent tricompartment osteoarthritis Chondrocalcinosis Reviewed, dictated and finalized at location A.
== END ==
PROVIDERS: PCP Family Medicine; Visit Provider Family Medicine
DX: M17.11 Unilateral primary osteoarthritis, right knee (principal)
CPT/HCPCS: 73560

== ENCOUNTER 2021-06-23 13:09 | Outpatient (CLI) | payer MEDICARE, SELFPAY ==
[2021-06-23 13:51] LABS: Basophils Percent Auto 0.3 % (0.2-1.2); Eosinophils Absolute Auto 0.2 K/mm3 (0-0.3); Eosinophils Percent Auto 2.5 % (0-4.4); Hematocrit 29.7 % (37.0-47.0); Hemoglobin 9.8 g/dL (12.0-15.0); Immature Granulocyte Absolute 0.02 K/mm3 (0.00-0.031); Immature Granulocyte Percent A 0.3 % (0-0.5); Lymphocytes Absolute Auto 1.76 K/mm3 (0.9-3.2); Lymphocytes Percent Auto 27.6 % (18.3-44.2); Mean Corpuscular Hemoglobin 31.3 pg (26-34); Mean Corpuscular Volume 94.9 fl (80-100); Mean Platelet Volume 12.4 fl (7.4-10.4); Monocytes Absolute Auto 0.9 K/mm3 (0.1-0.6); Monocytes Percent Auto 13.5 % (2.6-8.5); Neutrophils Absolute Auto 3.6 K/mm3 (1.3-6.7); Neutrophils Percent Auto 55.8 % (45.5-73.1); Platelet Count Result 188 k/mm3 (150-375); Red Blood Count 3.13 M/mm3 (4.2-5.4); Red Cell Distribution Width 14.8 % (11.5-14.5); White Blood Count 6.4 K/mm3 (4.5-10.0)
[2021-06-23 14:02] LABS: Anion Gap 7 mmol/L (8-16); Blood Urea Nitrogen 43 mg/dL (7-17); Calcium 9.6 mg/dL (8.4-10.2); Carbon Dioxide 29 mmol/L (22-30); Chloride 99 mmol/L (98-107); Estimated Glomerular Filt Rate 33; Glucose 188 mg/dL (65-110); Potassium 4.3 mmol/L (3.4-5.0); Sodium 135 mmol/L (137-145)
== END 2021-06-23 13:10 | disposition home or self-care (01) ==
LOC: ANHLAB 13:17
PROVIDERS: PCP Family Medicine; Visit Provider Physician Assistant
DX: D64.9 Anemia, unspecified (principal); R53.82 Chronic fatigue, unspecified; E55.9 Vitamin D deficiency, unspecified; L60.3 Nail dystrophy; L65.9 Nonscarring hair loss, unspecified
CPT/HCPCS: 36415; 80048; 82306; 85025

== ENCOUNTER 2021-07-07 11:00 | Outpatient (RCR) | payer MEDICARE, SELFPAY ==
--- NOTE | 2021-04-20 10:04 | PCCPR ---
Katlin fuller today, called out stating that her blood sugar was low at 60 and she was trying to get it up.
[2021-04-25 13:03] LABS: Glucose Point of Care 117 mg/dl (65-105)
[2021-04-27 12:16] LABS: Glucose Point of Care 143 mg/dl (65-105)
[2021-04-27 12:16] LABS: Glucose Point of Care 156 mg/dl (65-105)
[2021-04-28 12:14] LABS: Glucose Point of Care 278 mg/dl (65-105)
[2021-04-28 12:14] LABS: Glucose Point of Care 224 mg/dl (65-105)
[2021-05-02 12:15] LABS: Glucose Point of Care 116 mg/dl (65-105)
[2021-05-04 12:05] LABS: Glucose Point of Care 214 mg/dl (65-105)
[2021-05-05 12:30] LABS: Glucose Point of Care 79 mg/dl (65-105)
[2021-05-05 12:30] LABS: Glucose Point of Care 91 mg/dl (65-105)
[2021-05-09 12:12] LABS: Glucose Point of Care 118 mg/dl (65-105)
[2021-05-09 12:12] LABS: Glucose Point of Care 161 mg/dl (65-105)
[2021-05-11 12:29] LABS: Glucose Point of Care 302 mg/dl (65-105)
[2021-05-11 12:29] LABS: Glucose Point of Care 181 mg/dl (65-105)
[2021-05-12 12:11] LABS: Glucose Point of Care 112 mg/dl (65-105)
[2021-05-18 11:22] LABS: Glucose Point of Care 162 mg/dl (65-105)
[2021-05-18 12:08] LABS: Glucose Point of Care 203 mg/dl (65-105)
[2021-05-19 11:58] LABS: Glucose Point of Care 112 mg/dl (65-105)
[2021-05-19 11:59] LABS: Glucose Point of Care 72 mg/dl (65-105)
[2021-05-19 11:59] LABS: Glucose Point of Care 178 mg/dl (65-105)
[2021-05-23 12:08] LABS: Glucose Point of Care 169 mg/dl (65-105)
[2021-05-26 12:12] LABS: Glucose Point of Care 153 mg/dl (65-105)
[2021-05-30 12:16] LABS: Glucose Point of Care 117 mg/dl (65-105)
[2021-06-15 12:09] LABS: Glucose Point of Care 186 mg/dl (65-105)
[2021-06-20 11:20] LABS: Glucose Point of Care 111 mg/dl (65-105)
[2021-06-20 12:15] LABS: Glucose Point of Care 154 mg/dl (65-105)
[2021-06-22 12:26] LABS: Glucose Point of Care 95 mg/dl (65-105)
[2021-06-22 12:26] LABS: Glucose Point of Care 121 mg/dl (65-105)
[2021-06-30 13:38] LABS: Glucose Point of Care 83 mg/dl (65-105)
[2021-06-30 13:38] LABS: Glucose Point of Care 156 mg/dl (65-105)
[2021-07-04 11:31] LABS: Glucose Point of Care 133 mg/dl (65-105)
[2021-07-06 12:10] LABS: Glucose Point of Care 188 mg/dl (65-105)
[2021-07-07 12:21] LABS: Glucose Point of Care 192 mg/dl (65-105)
== END 2021-07-07 19:30 | disposition home or self-care (01) ==
LOC: ANHCPREHAB 11:00
PROVIDERS: PCP Physician Assistant; Visit Provider Internal Medicine Cardiovascular Disease
DX: Z95.1 Presence of aortocoronary bypass graft (principal)
CPT/HCPCS: 82948; 93798

== ENCOUNTER 2021-07-07 12:33 | Outpatient (CLI) | payer MEDICARE, SELFPAY ==
[2021-07-07 13:58] LABS: Basophils Percent Auto 0.5 % (0.2-1.2); Eosinophils Absolute Auto 0.1 K/mm3 (0-0.3); Eosinophils Percent Auto 1.8 % (0-4.4); Immature Granulocyte Absolute 0.01 K/mm3 (0.00-0.031); Immature Granulocyte Percent A 0.2 % (0-0.5); Lymphocytes Absolute Auto 1.76 K/mm3 (0.9-3.2); Lymphocytes Percent Auto 28.3 % (18.3-44.2); Mean Corpuscular HGB Conc 32.3 g/dl (32-36); Mean Corpuscular Hemoglobin 30.4 pg (26-34); Mean Corpuscular Volume 94.2 fl (80-100); Mean Platelet Volume 12.3 fl (7.4-10.4); Monocytes Absolute Auto 0.9 K/mm3 (0.1-0.6); Monocytes Percent Auto 14.3 % (2.6-8.5); Neutrophils Absolute Auto 3.4 K/mm3 (1.3-6.7); Neutrophils Percent Auto 54.9 % (45.5-73.1); Platelet Count Result 208 k/mm3 (150-375); Red Blood Count 3.29 M/mm3 (4.2-5.4); Red Cell Distribution Width 14.6 % (11.5-14.5); White Blood Count 6.2 K/mm3 (4.5-10.0)
== END 2021-07-07 12:34 | disposition home or self-care (01) ==
LOC: ANHLAB 12:35
PROVIDERS: PCP Family Medicine; Visit Provider Physician Assistant
DX: D64.9 Anemia, unspecified (principal)
CPT/HCPCS: 36415; 85025

== ENCOUNTER 2021-09-07 12:23 | Outpatient (CLI) | payer MEDICARE, SELFPAY ==
--- NOTE | ~2021-09-07 | XR_ITS ---
XR chest 2V DATE: 09/07/2021 13:42 INDICATION: Increasing shortness of breath. Recent fall. Status post CABG. TECHNIQUE: AP and lateral views COMPARISON: 04/22/2021 2 view chest FINDINGS: Cardiomegaly. No hilar or mediastinal enlargement. No pulmonary infiltrate or consolidation , pleural effusion or pulmonary vascular congestion or pneumothorax is detected. Status post sternotomy. Epicardial pacemaker wires remain. Mild dextroscoliosis of the thoracic spine. Degenerative spurring of the thoracic spine. IMPRESSION: Status post sternotomy Cardiomegaly No active pulmonary disease Reviewed, dictated and finalized at location B. ICAL DOCUMENTATION IMPROVEMENT SPECIALIST
--- NOTE | ~2021-09-07 | XR_ITS ---
XR thoracic spine 2V DATE: 09/07/2021 13:43 INDICATION: Fall. Generalized back pain TECHNIQUE: AP, lateral views COMPARISON: None FINDINGS: No fracture or dislocation, periosteal reaction or bone destruction. There is mild degener ative spurring. No paraspinal soft tissue thickening. Status post sternotomy. IMPRESSION: Mild degenerative change Reviewed, dictated and finalized at location B. DELIVERY AIDE IMPRESSION: Mild degenerative change
--- NOTE | ~2021-09-07 | XR_ITS ---
EXAMINATION: XR lumbar spine 2-3V DATE: 09/07/2021 13:44 INDICATION: Low back pain TECHNIQUE: Anteroposterior and lateral views of the lumbar spine, and cone-down lateral view of the l umbosacral junction were obtained. COMPARISON: 08/22/2019 FINDINGS: There is no fracture, dislocation, or subluxation. There is mild loss of intervertebral dis c space height at L3-4 and L5-S1. The vertebral body heights are normal. Small degenerative osteophyt es project from the anterior endplates of multiple vertebral bodies. There is moderate facet osteoart hritis of the mid and lower lumbar spine. IMPRESSION: 1. Moderate lumbar spondylosis without acute findings or significant interval change. Reviewed, dictated and finalized at location A. MAINTENANCE TECHNICIAN IMPRESSION: 1. Moderate lumbar spondylosis without acute findings or significant interval c herbert.
--- NOTE | ~2021-09-07 | CT_ITS ---
EXAMINATION: CT brain wo con INDICATION: Lightheadedness and syncope, photophobia COMPARISON: 03/10/2021 TECHNIQUE: Standard unenhanced head CT. The dose-length product (DLP) was 681.00 mGy-cm. The mA was a djusted according to patient size. Iterative reconstruction technique was employed. FINDINGS: There is no acute intraparenchymal hemorrhage. No evidence of mass lesion. No evidence of a cute infarction. There is an old right parieto-occipital infarct. There is mild periventricular and s ubcortical hypodensity probably related to small vessel ischemic disease. There is mild prominence of the sulci and ventricles related to cerebral atrophy. Intracranial calcified cerebral atherosclerosi s is noted. There are no extra-axial collections. There is no mass effect or midline shift. The orbit s and soft tissues are unremarkable. The visualized sinuses and mastoid air cells are well aerated. IMPRESSION: 1. Old right parieto-occipital infarct without acute intracranial abnormality. 2. Age related findings. Reviewed, dictated and finalized at location A. CTOR INTERNAL COMMUNICATIONS
--- NOTE | ~2021-09-07 | XR_ITS ---
XR cervical spine 4-5V DATE: 09/07/2021 13:42 INDICATION: Fall. Generalized neck, back pain TECHNIQUE: AP, open-mouth, lateral, swimmer views COMPARISON: 04/04/2029 FINDINGS: There is straightening of the cervical spine. No fracture or dislocation or locked facet or prevertebral soft tissue swelling. Cervical interspaces are well preserved. There is mild degenerative disc disease in the lower cervical spine. IMPRESSION: Straightening Mild degenerative disc disease in the lower cervical spine Reviewed, dictated and finalized at location B. GER AGRICULTURE
[2021-09-07 14:34] LABS: Basophils Percent Auto 0.5 % (0.2-1.2); Eosinophils Absolute Auto 0.1 K/mm3 (0-0.3); Eosinophils Percent Auto 1.9 % (0-4.4); Hematocrit 32.1 % (37.0-47.0); Hemoglobin 10.3 g/dL (12.0-15.0); Immature Granulocyte Absolute 0.02 K/mm3 (0.00-0.031); Immature Granulocyte Percent A 0.3 % (0-0.5); Lymphocytes Absolute Auto 1.73 K/mm3 (0.9-3.2); Lymphocytes Percent Auto 27.5 % (18.3-44.2); Mean Corpuscular HGB Conc 32.1 g/dl (32-36); Mean Corpuscular Hemoglobin 30.7 pg (26-34); Mean Corpuscular Volume 95.5 fl (80-100); Mean Platelet Volume 12.3 fl (7.4-10.4); Monocytes Absolute Auto 0.8 K/mm3 (0.1-0.6); Monocytes Percent Auto 12.7 % (2.6-8.5); Neutrophils Absolute Auto 3.6 K/mm3 (1.3-6.7); Neutrophils Percent Auto 57.1 % (45.5-73.1); Platelet Count Result 183 k/mm3 (150-375); Red Blood Count 3.36 M/mm3 (4.2-5.4); Red Cell Distribution Width 14.5 % (11.5-14.5); White Blood Count 6.3 K/mm3 (4.5-10.0)
[2021-09-07 15:41] LABS: Hemoglobin A1C 9.2 % (<5.7)
== END 2021-09-07 12:24 | disposition home or self-care (01) ==
PROVIDERS: PCP Family Medicine; Visit Provider Physician Assistant
DX: R06.02 Shortness of breath (principal); R51.9 Headache, unspecified; W19.XXXA Unspecified fall, initial encounter; M47.816 Spondylosis without myelopathy or radiculopathy, lumbar region; M53.82 Other specified dorsopathies, cervical region; M50.30 Other cervical disc degeneration, unspecified cervical region; Z98.890 Other specified postprocedural states; I51.7 Cardiomegaly; Z86.73 Personal history of transient ischemic attack (TIA), and cerebral infarction without residual deficits; E11.69 Type 2 diabetes mellitus with other specified complication; Z79.4 Long term (current) use of insulin
CPT/HCPCS: 36415; 70450; 71046; 72050; 72070; 72100; 83036; 85025

== ENCOUNTER 2021-09-12 14:38 | Outpatient (CLI) | payer MEDICARE, SELFPAY ==
[2021-09-12 15:18] LABS: Alanine Aminotransferase 12 U/L (4-35); Alkaline Phosphatase 61 U/L (38-126); Anion Gap 7 mmol/L (8-16); Aspartate Amino Transferase 29 U/L (14-36); Bilirubin,Total 0.4 mg/dL (0.2-1.3); Blood Urea Nitrogen 39 mg/dL (7-17); Calcium 9.5 mg/dL (8.4-10.2); Carbon Dioxide 30 mmol/L (22-30); Chloride 103 mmol/L (98-107); Estimated Glomerular Filt Rate 33; Glucose 140 mg/dL (65-110); Sodium 140 mmol/L (137-145)
== END 2021-09-12 14:39 | disposition home or self-care (01) ==
PROVIDERS: PCP Family Medicine; Visit Provider Family Medicine
DX: E11.69 Type 2 diabetes mellitus with other specified complication (principal); Z79.4 Long term (current) use of insulin
CPT/HCPCS: 36415; 80053

== ENCOUNTER 2021-10-13 11:43 | Outpatient (CLI) | payer MEDICARE, SELFPAY ==
[2021-10-13 12:37] LABS: Hematocrit 32.5 % (37.0-47.0); Hemoglobin 10.7 g/dL (12.0-15.0); Mean Corpuscular HGB Conc 32.9 g/dl (32-36); Mean Corpuscular Hemoglobin 30.2 pg (26-34); Mean Corpuscular Volume 91.8 fl (80-100); Mean Platelet Volume 12.3 fl (7.4-10.4); Platelet Count Result 193 k/mm3 (150-375); Red Blood Count 3.54 M/mm3 (4.2-5.4); Red Cell Distribution Width 14.9 % (11.5-14.5); White Blood Count 6.9 K/mm3 (4.5-10.0)
[2021-10-13 12:45] LABS: Albumin Level 4.1 g/dL (3.5-5.1); Anion Gap 6 mmol/L (8-16); Blood Urea Nitrogen 26 mg/dL (7-17); Calcium 8.8 mg/dL (8.4-10.2); Carbon Dioxide 31 mmol/L (22-30); Chloride 101 mmol/L (98-107); Estimated Glomerular Filt Rate 33; Glucose 183 mg/dL (65-110); Phosphorus 3.7 mg/dL (2.5-4.5); Sodium 138 mmol/L (137-145)
[2021-10-13 12:47] LABS: Add Urine Microscopic? YES; Appearance Urine Cloudy (Clear); Bacteria Urine Trace /hpf; Bilirubin Urine Negative (Negative); Blood Urine Negative (Negative); Color Urine Yellow (Yellow); Glucose Urine UA Negative (Negative); Ketones Urine Negative (Negative); Leukocyte Esterase Ur Negative LEU/UL (Negative); Nitrate Urine Negative (Negative); Protein Urine 2+ mg/dL (Negative); RBC Urine 0-2 /hpf (0-2); Specific Grav Ur 1.018 (1.001-1.035); Squamous Epithelial Cell Urine Occasional /hpf (Few); Urobilinogen Urine Negative mg/dL (<2.0)
[2021-10-13 12:52] LABS: Complement C3 118 mg/dL (88-165)
[2021-10-13 12:57] LABS: Parathyroid Intact 54.9 pg/mL (7.5-53.5)
[2021-10-13 14:01] LABS: Erythrocyte Sedimentation Rate 115 mm/hr (0-20)
[2021-10-13 21:00] LABS: Creatinine Urine 188.2 mg/dL; Total Protein Urine Random 44 mg/dL; Ur Ttl Prot Creatinine Ratio 0.23 mg/mg (0-0.20)
[2021-10-15 19:06] LABS: Kappa\\Lambda Light Chains 1.48 (0.26-1.65); Lambda Light Chain 22.8 mg/L (5.7-26.3)
[2021-10-16 20:57] LABS: Complement Total CH50 >60 U/mL (31-60)
== END 2021-10-13 11:44 | disposition home or self-care (01) ==
PROVIDERS: PCP Family Medicine; Referring Provider Physician Assistant; Visit Provider Internal Medicine Nephrology
DX: N18.32 Chronic kidney disease, stage 3b (principal)
CPT/HCPCS: 36415; 80069; 81001; 82570; 83883; 83970; 84156; 85027; 85652; 86038; 86160; 86162; 86334

== ENCOUNTER 2021-10-25 08:51 | Outpatient (CLI) | payer MEDICARE, SELFPAY ==
--- NOTE | ~2021-10-25 | US_ITS ---
EXAMINATION: US abdomen complete EXAM DATE: 10/25/2021 11:12 INDICATION: CKD Stage 3, RT Breast Tenderness, RUQ Abd Pain. TECHNIQUE: Multiple grayscale and Doppler images of the complete abdomen were obtained (by a technolo gist who performed the scan) and subsequently reviewed. Correlation is made to kidney ultrasound 04/02. FINDINGS: The abdominal aorta is normal in caliber. Visualized portion IVC is patent. The pancreatic head a nd body are normal in appearance. The pancreatic tail is not visualized. The liver has normal echogenicity and contour. There are no focal liver lesions identified. There is no evidence of intrahepatic biliary duct dilation. Portal venous flow was seen in the hepatopedal , normal direction and has normal Doppler waveform. Common bile duct measures 5-6 mm, which is normal. The gallbladder wall is normal in thickness, with expected amount of distention. No sonographic evidence of pericholecystic fluid. There is no cholel ithiases. Technologist performing exam reports patient did not demonstrate sonographic Doll's sign. Please note that this sign is less reliable in patients who have received pain medication. Right kidney: There is normal contour and echogenicity. It measures 10.4 x 4.3 x 4.8 centimeters. There are no focal renal lesions identified. There is no hydronephrosis. Left kidney: There is normal contour and echogenicity. It measures 11.0 x 4.8 x 4.6 centimeters. T here are no focal renal lesions identified. There is no hydronephrosis. The spleen measures 10.8 centimeters and is morphologically normal. IMPRESSION: Unremarkable complete abdominal ultrasound exam. Reviewed, dictated and finalized at location A.
--- NOTE | ~2021-10-25 | MM_ITS ---
EXAMINATION: MM diagnostic berna BI w dayan HISTORY: Breast pain TECHNIQUE: Additional 3-D tomosynthesis images of the breasts were performed and synthetic 2-D images were generated. CAD analysis was submitted and interpreted. COMPARISON: Comparison to multiple prior studies sequentially, with oldest reviewed study dated 03/18. BREAST PARENCHYMAL COMPOSITION: Breast composed of scattered areas of fibroglandular density. FINDINGS: The breasts are stable without evidence for new mass, calcification or architectural distor tion to suggest malignancy. IMPRESSION: 1. No mammographic evidence for malignancy in either breast. 2. Routine yearly screening mammogram and regular clinical breast examination are recommended. BI-RADS Category 1: Negative Reviewed, dictated and finalized at location A. IMPRESSION: 1. No mammographic evidence for malignancy in either breast. 2. Routine yearly screening mammogram and regular clinical breast examination a re recommended. BI-RADS Category 1: Negative
== END 2021-10-25 08:52 | disposition home or self-care (01) ==
PROVIDERS: PCP Family Medicine; Visit Provider Physician Assistant
DX: N64.4 Mastodynia (principal); R10.11 Right upper quadrant pain; N18.30 Chronic kidney disease, stage 3 unspecified; E11.22 Type 2 diabetes mellitus with diabetic chronic kidney disease
CPT/HCPCS: 76700; 77062; 77066; G0279

== ENCOUNTER 2022-01-12 16:11 | Outpatient (CLI) | payer MEDICARE, SELFPAY ==
--- NOTE | ~2022-01-12 | XR_ITS ---
EXAMINATION: XR chest 2V DATE: 01/12/2022 16:52 INDICATION: Chest pain TECHNIQUE: PA and lateral views of the chest are obtained. COMPARISON: 09/07/2021 FINDINGS: The lungs are free of acute opacities. Cardiomegaly is noted. No pleural effusion or pneumo thorax. Median sternotomy wires and mediastinal surgical clips are seen, likely from prior coronary a rtery bypass grafting. There is moderate thoracic spondylosis. IMPRESSION: 1. Cardiomegaly Reviewed, dictated and finalized at location F. IMPRESSION: 1. Cardiomegaly
== END 2022-01-12 16:12 | disposition home or self-care (01) ==
PROVIDERS: PCP Family Medicine; Visit Provider Internal Medicine Cardiovascular Disease
DX: R07.89 Other chest pain (principal); Z95.1 Presence of aortocoronary bypass graft; I51.7 Cardiomegaly
CPT/HCPCS: 71046

== ENCOUNTER 2022-02-01 12:55 | Outpatient (CLI) | payer MEDICARE, SELFPAY ==
[2022-02-01 14:23] LABS: Hematocrit 33.7 % (37.0-47.0); Hemoglobin 10.7 g/dL (12.0-15.0); Mean Corpuscular HGB Conc 31.8 g/dl (32-36); Mean Corpuscular Hemoglobin 30.1 pg (26-34); Mean Corpuscular Volume 94.7 fl (80-100); Mean Platelet Volume 12.5 fl (7.4-10.4); Platelet Count Result 206 k/mm3 (150-375); Red Blood Count 3.56 M/mm3 (4.2-5.4); Red Cell Distribution Width 15.5 % (11.5-14.5); White Blood Count 7.3 K/mm3 (4.5-10.0)
[2022-02-01 14:33] LABS: Albumin Level 4.2 g/dL (3.5-5.1); Anion Gap 5 mmol/L (8-16); Blood Urea Nitrogen 29 mg/dL (7-17); Calcium 8.8 mg/dL (8.4-10.2); Carbon Dioxide 32 mmol/L (22-30); Chloride 100 mmol/L (98-107); Cholesterol 229 mg/dL (0-200); Estimated Glomerular Filt Rate 31; Glucose 179 mg/dL (65-110); HDL Direct 69 mg/dL; Phosphorus 3.7 mg/dL (2.5-4.5); Sodium 137 mmol/L (137-145); Triglycerides 92 mg/dL (<150)
[2022-02-01 14:40] LABS: Complement C3 120 mg/dL (88-165)
[2022-02-01 14:44] LABS: LDL Cholesterol Direct 80 mg/dL
[2022-02-01 14:45] LABS: Parathyroid Intact 26.8 pg/mL (7.5-53.5)
[2022-02-01 15:05] LABS: Appearance Urine Clear (Clear); Bilirubin Urine Negative (Negative); Blood Urine Negative (Negative); Color Urine Yellow (Yellow); Glucose Urine UA Negative (Negative); Ketones Urine Negative (Negative); Leukocyte Esterase Ur Negative LEU/UL (NEGATIVE); Nitrate Urine Negative (Negative); Protein Urine 2+ mg/dL (Negative); Urobilinogen Urine 0.2 mg/dL (<2.0)
[2022-02-01 15:07] LABS: Erythrocyte Sedimentation Rate 71 mm/hr (0-20)
[2022-02-01 15:09] LABS: Creatinine Urine 96.1 mg/dL
[2022-02-01 15:11] LABS: Add Urine Microscopic? YES; Bacteria Urine Trace /hpf; Mucus Urine Rare /lpf; RBC Urine 0-2 /hpf (0-2); Squamous Epithelial Cell Urine Rare /hpf (Few); WBC Urine 0-3 /hpf (0-3)
[2022-02-04 08:47] LABS: Kappa\\Lambda Light Chains 1.62 (0.26-1.65); Lambda Light Chain 24.2 mg/L (5.7-26.3)
[2022-02-05 13:14] LABS: Complement Total CH50 >60 U/mL (31-60)
[2022-02-06 15:07] LABS: Albumin 77 %; Measured Kappa Chains 1.47 mg/dL (<2.00); Measured Lambda Chains <1.00 mg/dL (<2.00); Pro/Creat Ratio 392 mg/g creat (<=114); Total Kappa Chains 16.17 mg/24 h
[2022-02-07 15:34] LABS: Protein,total, 24 Hr Ur 429 mg/24h
== END 2022-02-01 12:56 | disposition home or self-care (01) ==
PROVIDERS: PCP Physician Assistant; Visit Provider Internal Medicine Nephrology
DX: N18.32 Chronic kidney disease, stage 3b (principal); E11.69 Type 2 diabetes mellitus with other specified complication; E78.2 Mixed hyperlipidemia; R53.82 Chronic fatigue, unspecified
CPT/HCPCS: 36415; 80061; 80069; 81001; 82570; 83883; 83970; 84443; 85027; 85652; 86038; 86160; 86162; 86334; 86335

== ENCOUNTER 2022-02-24 16:22 | Inpatient (IN) | payer MEDICARE, SELFPAY ==
--- NOTE | ~2022-02-24 | XR_ITS ---
EXAMINATION: XR chest 2V Exam Date/Time: 02/27/2022 17:25 CDT HISTORY: recent abnml VQ Comparison: X-ray chest 522, CT chest 02/25/2022, perfusion scan 02/27/2022 and 04/22/2021. RESULT: Lines, tubes, and devices: Prior CABG with intact sternotomy wires and devices. Lungs and pleura: Clear. Cardiomediastinal silhouette: Stable. Other: No acute osseous or upper abdominal finding. IMPRESSION: No radiographic correlate to the perfusion abnormality in the right upper lobe. Given the prominent s oft tissues and similar changes (in different areas) in a prior perfusion scan, the current perfusion scan abnormalities may be related to overlying soft tissue artifact. Reviewed, dictated and finalized at location K. IMPRESSION: No radiographic correlate to the perfusion abnormality in the right upper lobe. Given the prominent soft tissues and similar changes (in different areas) in a prior perfusion scan, the current perfusion scan abnormalities may be related to overlying soft tissue artifact.
--- NOTE | ~2022-02-24 | NM_ITS ---
NM pulmonary perfusion INDICATION: Shortness of breath TECHNIQUE: Following ventilation scan, 4.6 mCi Tc 99m MAA was injected intravenously for perfusion im ages. Multiple images were then acquired. COMPARISON: No recent chest x-ray for comparison. FINDINGS: There is a large perfusion defect of the right upper lobe, best seen on the lateral view. T his is new compared with prior study. There is improved perfusion of the left upper lobe. IMPRESSION: 1: Large perfusion abnormality of the right upper lobe on lateral view. Recommend correlation with est x-ray. Reviewed, dictated and finalized at location A. IMPRESSION: 1: Large perfusion abnormality of the right upper lobe on lateral view. Recomme nd correlation with chest x-ray.
--- NOTE | ~2022-02-24 | CT_ITS ---
EXAMINATION: CT chest high resolution wo co DATE: 02/25/2022 20:24 INDICATION: sob, chest pain TECHNIQUE: Computed tomography (CT) of the chest, including high-resolution images of the lungs, was performed without intravenous contrast. Automated exposure control and iterative reconstruction techn ique were employed. The dose-length product was 804.62 mGy-cm. COMPARISON: [facility] 12/31/2020, x-ray chest 02/24/2022. FINDINGS: CHEST: Thoracic aorta: Mild ectasia and arch calcification. Lung parenchyma and airways: Scattered centrilobular and tree-in-bud opacities. Thoracic inlet, axillae and chest wall: No thyroid or soft tissue mass. No axillary lymphadenopathy. Mediastinum: No mass or lymphadenopathy. Heart and pericardium: Mild cardiomegaly. Prior CABG. Coronary artery calcifications: Moderate. Pleura: No effusion or mass. Upper abdomen: No significant finding. Thoracic bones: No acute osseous finding in the chest. IMPRESSION: Pulmonary opacities may reflect hypersensitivity pneumonitis, respiratory bronchiolitis in smokers, o r infectious airways disease. Reviewed, dictated and finalized at location K. IMPRESSION: Pulmonary opacities may reflect hypersensitivity pneumonitis, respiratory bronc hiolitis in smokers, or infectious airways disease.
--- NOTE | ~2022-02-24 | XR_ITS ---
EXAMINATION: XR chest 2V DATE: 02/24/2022 17:18 INDICATION: Right-sided chest tightness and shortness of breath TECHNIQUE: frontal and lateral views of the chest were obtained. COMPARISON: Chest radiograph dated 01/12/2022 FINDINGS: No focal airspace opacities, pulmonary edema, pleural effusion or pneumothorax. Cardiomegaly. Median sternotomy wires and plate and screws as well as mediastinal surgical clips are seen, likely from julian or coronary artery bypass grafting. Also retained cardiac pacemaker leads along the anterior heart. M oderate thoracic spondylosis. IMPRESSION: 1. Cardiomegaly Reviewed, dictated and finalized at location A. IMPRESSION: 1. Cardiomegaly
--- NOTE | ~2022-02-24 | US_ITS ---
EXAMINATION: US venous doppler [facility] DATE: 02/25/2022 14:17 INDICATION: LE swelling R > L . TECHNIQUE: Grayscale images without and with compression and Doppler images of the bilateral lower ex tremity veins were obtained. COMPARISON: None FINDINGS: The right common femoral vein, profunda (deep) femoral vein, femoral vein, popliteal vein, peroneal v ein, posterior tibial veins, gastrocnemius vein, and greater saphenous vein are patent. The left common femoral vein, profunda femoral vein, femoral vein, popliteal vein, peroneal vein, pos terior tibial veins, gastrocnemius vein, and greater saphenous vein are patent. IMPRESSION: 1. Patent bilateral lower extremity veins. No evidence of deep venous thrombosis. Reviewed, dictated and finalized at location K. IMPRESSION: 1. Patent bilateral lower extremity veins. No evidence of deep venous thrombos is.
--- NOTE | 2022-02-24 16:23 | ECG_ITS ---
Measurements Intervals [place] Rate: 68 P: 4 GA: 223 QRS: -13 QRSD: 108 T: 51 QT: 411 QTc: 439 Interpretive Statements SINUS RHYTHM WITH FIRST DEGREE AV BLOCK POSSIBLE ANTERIOR MYOCARDIAL INFARCTION , PROBABLY OLD [30 ms Q WAVE IN V3/V4, OR R < 0.2 mV IN V4] INFERIOR MYOCARDIAL INFARCTION , PROBABLY OLD [40+ ms Q WAVE AND/OR ST/T ABNORMALITY IN II/aVF] COMPARED TO ECG 04/22/2021 13:27:52 FIRST DEGREE AV BLOCK NOW PRESENT OTHERWISE NO SIGNIFICANT DIFFERENCE Electronically Signed On 02-24-2022 16:38:53 CDT by Earl Arcos M.D.
--- NOTE | 2022-02-24 16:27 | PC.NURSE ---
pt states my chest feels jittery now. wax pattern assembler asked tech to perform ekg and lab work now.
[2022-02-24 16:40] VITALS: BP 158/62; PULSE 72; RESP 20; TEMP 36.4; O2SAT 100
[2022-02-24 16:58] LABS: Basophils Percent Auto 0.5 % (0.2-1.2); Eosinophils Absolute Auto 0.4 K/mm3 (0-0.3); Hematocrit 34.5 % (37.0-47.0); Hemoglobin 10.9 g/dL (12.0-15.0); Immature Granulocyte Absolute 0.02 K/mm3 (0.00-0.031); Immature Granulocyte Percent A 0.3 % (0-0.5); Lymphocytes Absolute Auto 1.96 K/mm3 (0.9-3.2); Lymphocytes Percent Auto 26.4 % (18.3-44.2); Mean Corpuscular HGB Conc 31.6 g/dl (32-36); Mean Corpuscular Hemoglobin 29.3 pg (26-34); Mean Corpuscular Volume 92.7 fl (80-100); Mean Platelet Volume 12.6 fl (7.4-10.4); Monocytes Percent Auto 12.8 % (2.6-8.5); Neutrophils Absolute Auto 4.1 K/mm3 (1.3-6.7); Platelet Count Result 187 k/mm3 (150-375); Red Blood Count 3.72 M/mm3 (4.2-5.4); Red Cell Distribution Width 14.7 % (11.5-14.5); White Blood Count 7.4 K/mm3 (4.5-10.0)
[2022-02-24 17:07] LABS: Alanine Aminotransferase 12 U/L (6-35); Albumin Level 3.8 g/dL (3.5-5.1); Alkaline Phosphatase 75 U/L (38-126); Anion Gap 8 mmol/L (8-16); Aspartate Amino Transferase 20 U/L (14-36); Bilirubin,Total 0.4 mg/dL (0.2-1.3); Blood Urea Nitrogen 36 mg/dL (7-17); Calcium 8.5 mg/dL (8.4-10.2); Carbon Dioxide 29 mmol/L (22-30); Chloride 97 mmol/L (98-107); Estimated CRCL calculation 35 ml/min; Estimated Glomerular Filt Rate 33; Glucose 305 mg/dL (65-110); Potassium 3.9 mmol/L (3.4-5.0); Sodium 134 mmol/L (137-145)
[2022-02-24 18:46] VITALS: O2SAT 99
[2022-02-24 19:23] VITALS: BP 164/56; PULSE 66; PULSE 67; RESP 20; O2SAT 98
--- NOTE | 2022-02-24 20:07 | ED.GENADULT ---
HPI - General Adult General Chief complaint: Shortness of Breath/Dyspnea Stated complaint: chest tightness and sob -hx cabg Time Seen by Provider: 02/24/22 19:14 History of Present Illness HPI narrative: 71-year-old female with past medical history of dyslipidemia, hypertension status post CABG approximately 1 year ago presents to our department for evaluation of anterior chest wall pain which began this morning while she was laying on her couch. Patient also feels a pain or may be a tingling in her left upper extremity as well. The symptoms feel similar to what she felt prior to having bypass surgery in December of last year. Patient has also noticed some worsening swelling in the lower extremities. She admits that the right lower extremity is always more swollen than the left because of her vein graft. Related Data Home Medications Medication Instructions Recorded Confirmed bumetanide 1 mg tablet 1 mg PO BID 02/18/21 02/25/22 clopidogrel 75 mg tablet 75 mg PO DAILY 02/18/21 02/25/22 metoprolol tartrate 37.5 mg tablet 37.5 mg PO Q12H 02/18/21 02/25/22 potassium chloride 10 mEq 20 meq PO BID 02/18/21 02/25/22 tablet,extended release (K-Tab) tramadol 50 mg tablet 25 mg PO BID PRN Pain 02/18/21 02/25/22 blood sugar diagnostic (FreeStyle 02/21/21 02/25/22 Lite Strips) cholecalciferol (vitamin D3) 25 25 mcg PO WEEKLY 02/21/21 02/25/22 mcg (1,000 unit) tablet levothyroxine 50 mcg tablet 50 mcg PO DAILY 02/21/21 02/25/22 insulin lispro 100 unit/mL See Rx Instructions .Route .COMPLEX 04/04/21 02/25/22 subcutaneous pen (Humalog KwikPen (U-100) Insulin) insulin glargine 100 unit/mL (3 50 unit subcut HS 04/15/21 02/25/22 mL) subcutaneous pen (Lantus Solostar U-100 Insulin) pantoprazole 40 mg tablet,delayed 40 mg PO HS 04/15/21 02/25/22 release coenzyme Q10 10 mg capsule 10 mg PO DAILY 02/25/22 02/25/22 irbesartan 150 mg tablet 150 mg PO DAILY 02/25/22 02/25/22 simvastatin 20 mg tablet 20 mg PO QACLUNCH 02/25/22 02/25/22 Allergies Allergy/AdvReac Type Severity Reaction Status Date / Time Lvrzbnt-YDI-LxW Reductase Allergy Mild Cramping Verified 02/24/22 16:43 Inhibitor of the [Sebwfoh-Iro-Lto Reductase Muscles Inhibitor] Penicillins Allergy Itching Verified 02/24/22 16:43 Review of Systems Review of Systems: CONSTITUTIONAL: Denies fever, chills, or sweats. EYES: Denies visual changes, redness, or discharge. ENT: Denies rhinorrhea, congestion, sore throat, or otalgia. CARDIOVASCULAR: Denies chest pain, palpitations, or edema. RESPIRATORY: Denies cough or dyspnea. GASTROINTESTINAL: Denies abdominal pain, nausea, vomiting, or diarrhea. GENITOURINARY: Denies dysuria or hematuria. SKIN: Denies rash or itching. MUSCULOSKELETAL: Denies back pain, joint pain, or myalgia. NEUROLOGIC: Denies headache, numbness, or weakness. PSYCHIATRIC: Denies anxiety or depression. [facility], [facility] Past Medical History Medical History Anxiety Chronic anemia Chronic kidney disease, stage 3 Baseline creatinine appears to be around 1.50. Dyslipidemia Essential hypertension Gastroesophageal reflux disease Grade II diastolic dysfunction Ejection fraction at that time was 60 to 65%. History of cerebrovascular accident (01/2015) Residual left-sided paresthesias. Insulin dependent type 2 diabetes mellitus Complicated by diabetic retinopathy, neuropathy, and nephropathy. Hemoglobin A1c was 8.4% in September 2020. Morbid obesity Obstructive sleep apnea (~04/2020) Mild FILI noted on home sleep study. Severe pulmonary arterial systolic hypertension (~01/2020) No obvious etiology has been found as of yet. Followed by Dr. Anastasiya Johnson. [place] (~1999) Surgical History Surgical History History of 2 sections History of arthroplasty of right knee History of cataract extraction History of dilation and curettage His
[2022-02-24 21:14] VITALS: BP 164/61; PULSE 69; RESP 17; O2SAT 98
[2022-02-24 21:47] LABS: NT Pro B Type Natriuretic Pept 499 pg/mL (5-100); Troponin I < 0.012 ng/mL (0.000-0.034)
[2022-02-24 21:57] LABS: SARS-CoV-2 RNA PCR Negative
[2022-02-24 22:24] VITALS: PULSE 66; RESP 13; O2SAT 100
[2022-02-24] MEDS: ASPIRIN 81 MG CHEWABLE TABLET 324 MG PO (22:29)
[2022-02-24] MEDS: NITROGLYCERIN OINTMENT 1 INCH DOSE TRANSDERM (22:29)
--- NOTE | 2022-02-24 22:48 | PC.NURSE ---
Blood pressure left forearm 22:48 110/83
[2022-02-24 23:34] VITALS: BP 110/83; PULSE 72; RESP 19; TEMP 36.6; O2SAT 100
[2022-02-25] VITALS (13 sets, daily range): BP systolic 147–167; BP diastolic 52–86; PULSE 60–92; RESP 16–22; TEMP 36.1–37.1; O2SAT 95–100
--- NOTE | 2022-02-25 | ECHO_ITS ---
Patient Info Name: Katlin Calles Age: 71 years : 1950 Gender: Female Ht: 65 in Wt: 301 lbs BSA: 2.58 m2 HR: 87 bpm BP: 147 / 86 mmHg Heart Rhythm: Sinus Rhythm Technical Quality: Poor Exam Date: 02/25/2022 1:12 PM Exam Location: [facility] Pulmonary Patient Status: Inpatient Admit Date: 02/24/2022 Staff Ordering Physician: Kacy Garcia PA-C Mortgage Loan Assistant: Veronica Dexter RDCS Attending Provider: Kacy Garcia PA-C Referring Physician: Radha MATA; Exam Type: CA echo doppler color flow Study Info Indications R07.9 - Chest pain, unspecified Complete two-dimensional, color flow and Doppler transthoracic echocardiogram is performed with contrast to opacify the left ventricle and to improve the deliniation of the left ventricle endocardial borders. Contrast/Agitated Saline Contrast/Ag. Saline: Definity Amount: 4.00 ml Administered By: Veronica Dexter WILLIAM Reason for Poor Study: patient body habitus Summary 1. Technically difficult examination because of obesity. 2. Definity contrast injected to improve visualization. 3. Left ventricular hypertrophy with normal LV size and preserved systolic contractility. 4. Grade 1 diastolic noncompliance. 5. Dilated left atrium. Left Ventricle Left ventricular chamber dimension is normal. Left ventricular systolic function is normal, estimated at Empty. There is moderate concentric increased left ventricular wall thickness. The left ventricular diastolic function is grade I diastolic dysfunction. Right Ventricle Right ventricular chamber dimension is normal. Left Atria Left atrial chamber dimension is moderately enlarged. Right Atria Right atrial chamber dimension is normal. Aortic Valve The aortic valve is trileaflet. There is mild aortic valve sclerosis. Pulmonic Valve The pulmonic valve is not well visualized. Mitral Valve The mitral valve has normal leaflets. Tricuspid Valve The tricuspid valve leaflets are normal. Pericardium/Pleural The pericardium appears normal. Aorta The aortic root size at the sinus of Valsalva is normal. Left Ventricular Outflow Tract Name Value Normal LVOT 2D LVOT Diameter 1.9 cm LVOT Doppler LVOT Peak Gradient 3 mmHg LVOT Mean Gradient 1 mmHg LVOT VTI 24 cm LVOT VTI/AV VTI Ratio 0.9 LVOT Stroke Volume 72 ml LVOT CO 5.6 l/min LVOT CI 2.2 l/min/m2 Pulmonic Valve Name Value Normal PV Doppler PV Peak Gradient 5 mmHg Mitral Valve Name Value Normal
[2022-02-25 08:29] LABS: Glucose Point of Care 330 mg/dl (65-105)
[2022-02-25 09:40] LABS: Anion Gap 5 mmol/L (8-16); Blood Urea Nitrogen 30 mg/dL (7-17); Calcium 8.3 mg/dL (8.4-10.2); Carbon Dioxide 30 mmol/L (22-30); Chloride 100 mmol/L (98-107); Estimated CRCL calculation 40 ml/min; Estimated Glomerular Filt Rate 38; Glucose 330 mg/dL (65-110); Potassium 4.3 mmol/L (3.4-5.0); Sodium 135 mmol/L (137-145)
[2022-02-25 09:52] LABS: Troponin I < 0.012 ng/mL (0.000-0.034)
[2022-02-25] MEDS: ACETAMINOPHEN 325 MG TABLET 650 MG PO ×2 (10:07→21:41)
[2022-02-25] MEDS: FLUTICASONE PROPIONATE 0.05% NA SPR 16 GM BTL (*BKC) 1 SPRAY NASAL (10:08)
[2022-02-25] MEDS: BUMETANIDE 1 MG TABLET PO ×2 (10:10→18:24)
[2022-02-25] MEDS: IRBESARTAN 150 MG TABLET PO (10:11)
[2022-02-25] MEDS: POTASSIUM CHLORIDE 10 MEQ TABLET.ER 20 MEQ PO ×2 (10:11→18:24)
[2022-02-25] MEDS: ASPIRIN 81 MG CHEWABLE TABLET PO (10:11)
[2022-02-25] MEDS: CLOPIDOGREL BISULFATE 75 MG TABLET PO (10:11)
[2022-02-25] MEDS: METOPROLOL TARTRATE 12.5 MG TABLET 37.5 MG PO ×2 (10:11→20:53)
[2022-02-25] MEDS: INSULIN ASPART (*BKC) 100 UNITS/ML SUB-Q ×2 (10:12→12:28)
[2022-02-25] MEDS: INSULIN ASPART (*BKC) 100 UNITS/ML 7 UNITS SUB-Q ×3 (10:12→18:24)
--- NOTE | 2022-02-25 11:37 | PM.IMHP ---
H&P: HPI History of Present Illness Date/Time: 02/25/22 11:37 Chief Complaint: Chest tightness Narrative: Patient is a 71-year-old female with a past medical history of coronary artery disease status post CABG approximately 1 year ago, hypertension, type 2 diabetes on insulin therapy, CKD, hypothyroid, and asthma who presented to the emergency room for chest tightness. Patient states the last few days for chest feels very tight and she feels short of breath. She has a llittle dry cough but is not producing anything and has not tried her inhalers to see if that helps. She says the chest tightness/ pain travels down her left arm and to her shoulder. She tells me it does not feel like it did before she had her CABG last year. The nitroglycerin does not appear to be helping but it is giving her headache. She says nothing makes it better or worse. She has no history of blood clots. She has noted swelling in both of her lower extremities since her CABG but she thinks the right one is more swollen than the left. She has been feeling fatigued and admits to some constipation. She sees Dr. Sanchez with Cardiology. She denies nausea, vomiting, diarrhea and GERD like symptoms. Review of Systems Review of Systems: All systems reviewed & are unremarkable except as noted in HPI and below PMFSH Past Medical History Medical History Anxiety Chronic anemia Chronic kidney disease, stage 3 Baseline creatinine appears to be around 1.50. Dyslipidemia Essential hypertension Gastroesophageal reflux disease Grade II diastolic dysfunction Ejection fraction at that time was 60 to 65%. History of cerebrovascular accident (01/2015) Residual left-sided paresthesias. Insulin dependent type 2 diabetes mellitus Complicated by diabetic retinopathy, neuropathy, and nephropathy. Hemoglobin A1c was 8.4% in September 2020. Morbid obesity Obstructive sleep apnea (~04/2020) Mild FILI noted on home sleep study. Severe pulmonary arterial systolic hypertension (~01/2020) No obvious etiology has been found as of yet. Followed by Dr. Anastasiya Johnson. [place] (~1999) Surgical History Surgical History History of 2 sections History of arthroplasty of right knee History of cataract extraction History of dilation and curettage History of inguinal hernia repair History of partial thyroidectomy History of tonsillectomy and adenoidectomy History of total hysterectomy Family History Family History Mother , age 80, congestive heart failure Heart disease Father Carcinoma of colon Sibling Systemic lupus erythematosus Heart disease Cancer Other Cerebrovascular accident Diabetes mellitus Hypertension Social History Social History (Updated 02/25/22 @ 11:44 by Kacy Garcia PA-C) Social History: Patient does not drink an does not smoke. She would like to be a full code. She would elect [place], her fiance, to make medical decisions if needed Smoking status: Never smoker Alcohol intake: never Substance use: never Sexual Orientation (if Verbalized by the Patient): Straight or Heterosexual Spiritual care concerns: No Meds Home Medications and Allergies Home Medications Medication Instructions Recorded Confirmed Type albuterol sulfate 90 mcg/actuation 2 puff inhalation QID PRN 02/18/20 02/25/22 Rx aerosol inhaler shortness of breath or wheezing #6.7 grams aspirin 81 mg chewable tablet 81 mg PO DAILY@0800 #30 tabs 02/18/20 02/25/22 Rx ([facility] Aspirin) fluticasone propionate 50 1 spray intranasal DAILY #15.8 mL 06/14/20 02/25/22 Rx mcg/actuation nasal spray,suspension (Flonase Allergy Relief) bumetanide 1 mg tablet 1 mg PO BID 02/18/21 02/25/22 History clopidogrel 75 mg tablet 75 mg PO DAILY 02/18/21 02/25/22 His
[2022-02-25 11:52] LABS: Glucose Point of Care 400 mg/dl (65-105)
[2022-02-25] MEDS: ENOXAPARIN 40 MG/0.4 ML SYRINGE SUB-Q (12:27)
[2022-02-25 12:28] LABS: Troponin I < 0.012 ng/mL (0.000-0.034)
[2022-02-25] MEDS: polyethylene glycoL 3350 17 GM POWD.PACK PO (12:28)
[2022-02-25] MEDS: PERFLUTREN LIPID MICROSPHERES 1.5 ML VIAL DILUTED TO 10 ML TOTAL VOLUME IV PUSH (13:12)
[2022-02-25] MEDS: LEVALBUTEROL NEB 1.25 MG/3 ML 0.63 MG INHALATION (14:20)
[2022-02-25 16:19] LABS: Glucose Point of Care 179 mg/dl (65-105)
[2022-02-25] MEDS: INSULIN GLARGINE (*BKC) 100 UNITS/ML 35 UNITS SUB-Q (20:53)
[2022-02-25] MEDS: PANTOPRAZOLE 40 MG TABLET PO (20:53)
[2022-02-25 21:04] LABS: Glucose Point of Care 223 mg/dl (65-105)
[2022-02-26] VITALS (16 sets, daily range): BP systolic 145–196; BP diastolic 38–70; PULSE 59–95; RESP 16–20; TEMP 35.7–36.2; O2SAT 95–100
[2022-02-26] MEDS: LEVOTHYROXINE SODIUM 50 MCG TABLET PO (05:34)
[2022-02-26 06:26] LABS: Hematocrit 34.4 % (37.0-47.0); Hemoglobin 10.8 g/dL (12.0-15.0); Mean Corpuscular HGB Conc 31.4 g/dl (32-36); Mean Corpuscular Hemoglobin 29.5 pg (26-34); Mean Platelet Volume 12.7 fl (7.4-10.4); Platelet Count Result 197 k/mm3 (150-375); Red Blood Count 3.66 M/mm3 (4.2-5.4); White Blood Count 7.5 K/mm3 (4.5-10.0)
[2022-02-26 06:38] LABS: Anion Gap 5 mmol/L (8-16); Blood Urea Nitrogen 29 mg/dL (7-17); Calcium 8.9 mg/dL (8.4-10.2); Carbon Dioxide 34 mmol/L (22-30); Chloride 97 mmol/L (98-107); Estimated CRCL calculation 37 ml/min; Estimated Glomerular Filt Rate 36; Glucose 214 mg/dL (65-110); Lipase 56 U/L (23-300); Potassium 4.1 mmol/L (3.4-5.0); Sodium 136 mmol/L (137-145)
[2022-02-26 08:23] LABS: Glucose Point of Care 209 mg/dl (65-105)
[2022-02-26] MEDS: METOPROLOL TARTRATE 12.5 MG TABLET 37.5 MG PO ×2 (09:20→20:55)
[2022-02-26] MEDS: IRBESARTAN 150 MG TABLET PO (09:20)
[2022-02-26] MEDS: ACETAMINOPHEN 325 MG TABLET 650 MG PO ×2 (09:20→21:35)
[2022-02-26] MEDS: BUMETANIDE 1 MG TABLET PO ×2 (09:20→17:17)
[2022-02-26] MEDS: POTASSIUM CHLORIDE 10 MEQ TABLET.ER 20 MEQ PO ×2 (09:21→17:17)
[2022-02-26] MEDS: ENOXAPARIN 40 MG/0.4 ML SYRINGE SUB-Q (09:21)
[2022-02-26] MEDS: ASPIRIN 81 MG CHEWABLE TABLET PO (09:21)
[2022-02-26] MEDS: CLOPIDOGREL BISULFATE 75 MG TABLET PO (09:21)
[2022-02-26] MEDS: FLUTICASONE PROPIONATE 0.05% NA SPR 16 GM BTL (*BKC) 1 SPRAY NASAL (09:21)
[2022-02-26] MEDS: INSULIN ASPART (*BKC) 100 UNITS/ML 7 UNITS SUB-Q ×3 (09:22→17:17)
[2022-02-26] MEDS: INSULIN ASPART (*BKC) 100 UNITS/ML SUB-Q ×4 (09:22→23:49)
[2022-02-26] MEDS: LEVALBUTEROL NEB 1.25 MG/3 ML 0.63 MG INHALATION ×3 (09:28→22:04)
[2022-02-26 11:35] LABS: Glucose Point of Care 240 mg/dl (65-105)
--- NOTE | 2022-02-26 15:06 | P.PN_ITS ---
Progress Note: A&P Assessment and Plan (1) Type 2 diabetes mellitus with hyperglycemia: Code(s): E11.65 - Type 2 diabetes mellitus with hyperglycemia Status: Acute Assessment and Plan: * Blood sugar below 300 * Continue Lantus 50 mg HS with 7 units with meals and low-dose sliding scale hypoglycemic protocol and Accu-Cheks * Will adjust medication as needed * A1c pending * Continue diabetic male (2) Coronary artery disease: Code(s): I25.10 - Atherosclerotic heart disease of [place] coronary artery without angina pectoris Status: Acute Assessment and Plan: * History of CABG (3) Asthma: Code(s): J45.909 - Unspecified asthma, uncomplicated Status: Acute Assessment and Plan: * Continue breathing treatments (4) Anemia: Code(s): D64.9 - Anemia, unspecified Status: Acute Assessment and Plan: * Patient is followed by a corner cutter at [facility] * Hemoglobin 10.8 hematocrit 34.4 patient appears to be at baseline * Will continue to monitor (5) GERD (gastroesophageal reflux disease): Code(s): K21.9 - Gastro-esophageal reflux disease without esophagitis Status: Acute Assessment and Plan: * Added pantoprazole (6) Gastroesophageal reflux disease: Code(s): K21.9 - Gastro-esophageal reflux disease without esophagitis Status: Chronic (7) Atypical chest pain: Code(s): R07.89 - Other chest pain Status: Acute Assessment and Plan: * continues to have chest pain not believed to be cardiac related * Troponins negative x2, * BNP 499 * EKG with no acute findings.? ACS less likely * CXR showing? cardiomegaly without evidence of pneumonia or edema * V/Q scan and negative for PE or DVT * COVID negative * continue telemetry, * no need for cardiology consult at this time. Not believed to be cardiac related (8) Congestive heart failure: Code(s): I50.9 - Heart failure, unspecified Status: Acute Assessment and Plan: * Followed by Dr. Sanchez * BNP 400's * Continue Bumex * Will repeat BNP and chest x-ray * Will order echo Subjective Date/time seen: 02/26/22 15:06 Interval history: Patient notes that she still has chest discomfort and SOB. Patient notes that she has experience sob since her CAbg severeal years ago. Patient also noted that she fell about 2 months ever since then she has been having pain to her right chest area. I explained to patient all her tests were negative I will complete a echo and a BMP seeing as though she has a history of congestive heart failure. She does not feel as if she is ready to go home today. She did not sleep well overnight she was able to eat all her meals and she notes that she feels fatigued. Patient can not more than likely be discharged tomorrow. Review of Systems Review of Systems: All systems reviewed & are unremarkable except as noted in HPI and below Exam Narrative: General: Pleasant, morbidly obese no obvious distress noted HEENT: PERRLA, Mucous Membranes Moist and [place], Nares Patent, Sclera Clear Neck: JVD, Supple Pulmonary: Clear to Auscultation, Normal Air Movement Cardiovascular: No Murmurs, Gallops, or Rubs, Regular Rhythm, Regular Rate Abdominal: Abdomen Soft, Non-Distended, Normal Bowel Sounds Extremities: Normal Pulses 2+ pitting edema to her right lower extremity trace to her left Integumentary: No Abnormalities Neurological: Normal Gait, Normal Speech Psychological: Mental Status NL, Mood NL
--- NOTE | 2022-02-26 15:06 | WPDPN ---
Progress Note: A&P Assessment and Plan (1) Type 2 diabetes mellitus with hyperglycemia: Code(s): E11.65 - Type 2 diabetes mellitus with hyperglycemia Status: Acute Assessment and Plan: Blood sugar below 300 Continue Lantus 50 mg HS with 7 units with meals and low-dose sliding scale hypoglycemic protocol and Accu-Cheks Will adjust medication as needed A1c pending Continue diabetic male (2) Coronary artery disease: Code(s): I25.10 - Atherosclerotic heart disease of [place] coronary artery without angina pectoris Status: Acute Assessment and Plan: History of CABG (3) Asthma: Code(s): J45.909 - Unspecified asthma, uncomplicated Status: Acute Assessment and Plan: Continue breathing treatments (4) Anemia: Code(s): D64.9 - Anemia, unspecified Status: Acute Assessment and Plan: Patient is followed by a dance instructor at [facility] Hemoglobin 10.8 hematocrit 34.4 patient appears to be at baseline Will continue to monitor (5) GERD (gastroesophageal reflux disease): Code(s): K21.9 - Gastro-esophageal reflux disease without esophagitis Status: Acute Assessment and Plan: Added pantoprazole (6) Gastroesophageal reflux disease: Code(s): K21.9 - Gastro-esophageal reflux disease without esophagitis Status: Chronic (7) Atypical chest pain: Code(s): R07.89 - Other chest pain Status: Acute Assessment and Plan: continues to have chest pain not believed to be cardiac related Troponins negative x2, BNP 499 EKG with no acute findings.? ACS less likely CXR showing? cardiomegaly without evidence of pneumonia or edema V/Q scan and negative for PE or DVT COVID negative continue telemetry, no need for cardiology consult at this time. Not believed to be cardiac related (8) Congestive heart failure: Code(s): I50.9 - Heart failure, unspecified Status: Acute Assessment and Plan: Followed by Dr. Sanchez BNP 400's Continue Bumex Will repeat BNP and chest x-ray Will order echo Subjective Date/time seen: 02/26/22 15:06 Interval history: Patient notes that she still has chest discomfort and SOB. Patient notes that she has experience sob since her CAbg severeal years ago. Patient also noted that she fell about 2 months ever since then she has been having pain to her right chest area. I explained to patient all her tests were negative I will complete a echo and a BMP seeing as though she has a history of congestive heart failure. She does not feel as if she is ready to go home today. She did not sleep well overnight she was able to eat all her meals and she notes that she feels fatigued. Patient can not more than likely be discharged tomorrow. Review of Systems Review of Systems: All systems reviewed & are unremarkable except as noted in HPI and below Exam Narrative: General: Pleasant, morbidly obese no obvious distress noted HEENT: PERRLA, Mucous Membranes Moist and [place], Nares Patent, Sclera Clear Neck: JVD, Supple Pulmonary: Clear to Auscultation, Normal Air Movement Cardiovascular: No Murmurs, Gallops, or Rubs, Regular Rhythm, Regular Rate Abdominal: Abdomen Soft, Non-Distended, Normal Bowel Sounds Extremities: Normal Pulses 2+ pitting edema to her right lower extremity trace to her left Integumentary: No Abnormalities Neurological: Normal Gait, Normal Speech Psychological: Mental Status NL, Mood NL Objective Data Vital Signs Vital Signs: Vital Signs - 24 hr 02/25/22 16:00 02/25/22 20:53 02/25/22 20:00 Temperature Pulse Rate 65 64 Respiratory Rate Blood Pressure Pulse Oximetry Oxygen Delivery Room Air 02/25/22 22:00 02/25/22 20:00 02/26/22 00:00 Temperature 98.7 F Pulse Rate 82 92 62 Respiratory Rate 18 Blood Pressure 148/52 H Pulse Oximetry 100 Oxygen Delivery 02/26/22 04:00 02/26/22 06:00
[2022-02-26 16:13] LABS: Glucose Point of Care 198 mg/dl (65-105)
[2022-02-26] MEDS: INSULIN GLARGINE (*BKC) 100 UNITS/ML 35 UNITS SUB-Q (20:55)
[2022-02-26] MEDS: PANTOPRAZOLE 40 MG TABLET PO (20:55)
[2022-02-26 21:04] LABS: Glucose Point of Care 318 mg/dl (65-105)
[2022-02-26] MEDS: traMADol HCL (*CRX) 25 MG TABLET PO (21:35)
[2022-02-26 23:36] LABS: Glucose Point of Care 314 mg/dl (65-105)
[2022-02-27] VITALS (16 sets, daily range): BP systolic 148–164; BP diastolic 68–78; PULSE 60–72; RESP 16–20; TEMP 36.3–37; O2SAT 97–100
[2022-02-27] MEDS: LEVALBUTEROL NEB 1.25 MG/3 ML 0.63 MG INHALATION ×3 (02:10→20:16)
[2022-02-27] MEDS: LEVOTHYROXINE SODIUM 50 MCG TABLET PO (06:15)
[2022-02-27 06:44] LABS: Hematocrit 35.2 % (37.0-47.0); Hemoglobin 11.2 g/dL (12.0-15.0); Mean Corpuscular HGB Conc 31.8 g/dl (32-36); Mean Corpuscular Hemoglobin 29.6 pg (26-34); Mean Corpuscular Volume 92.9 fl (80-100); Mean Platelet Volume 12.6 fl (7.4-10.4); Platelet Count Result 192 k/mm3 (150-375); Red Blood Count 3.79 M/mm3 (4.2-5.4); Red Cell Distribution Width 15.2 % (11.5-14.5); White Blood Count 6.5 K/mm3 (4.5-10.0)
[2022-02-27 06:54] LABS: Alanine Aminotransferase 9 U/L (6-35); Albumin Level 3.4 g/dL (3.5-5.1); Alkaline Phosphatase 63 U/L (38-126); Anion Gap 5 mmol/L (8-16); Aspartate Amino Transferase 22 U/L (14-36); Bilirubin,Total 0.4 mg/dL (0.2-1.3); Blood Urea Nitrogen 25 mg/dL (7-17); Calcium 8.5 mg/dL (8.4-10.2); Carbon Dioxide 32 mmol/L (22-30); Chloride 101 mmol/L (98-107); Estimated CRCL calculation 40 ml/min; Estimated Glomerular Filt Rate 38; Glucose 137 mg/dL (65-110); Potassium 4.1 mmol/L (3.4-5.0); Sodium 138 mmol/L (137-145)
[2022-02-27 07:09] LABS: Hemoglobin A1C 10.9 % (<5.7)
[2022-02-27 08:08] LABS: Glucose Point of Care 157 mg/dl (65-105)
[2022-02-27] MEDS: METOPROLOL TARTRATE 12.5 MG TABLET 37.5 MG PO ×2 (08:52→20:05)
[2022-02-27] MEDS: POTASSIUM CHLORIDE 10 MEQ TABLET.ER 20 MEQ PO ×2 (08:53→18:01)
[2022-02-27] MEDS: ASPIRIN 81 MG CHEWABLE TABLET PO (08:53)
[2022-02-27] MEDS: BUMETANIDE 1 MG TABLET PO ×2 (08:53→18:02)
[2022-02-27] MEDS: CLOPIDOGREL BISULFATE 75 MG TABLET PO (08:54)
[2022-02-27] MEDS: IRBESARTAN 150 MG TABLET PO (08:54)
[2022-02-27] MEDS: ENOXAPARIN 40 MG/0.4 ML SYRINGE SUB-Q (08:54)
[2022-02-27] MEDS: FLUTICASONE PROPIONATE 0.05% NA SPR 16 GM BTL (*BKC) 1 SPRAY NASAL (08:57)
[2022-02-27] MEDS: INSULIN ASPART (*BKC) 100 UNITS/ML 7 UNITS SUB-Q ×3 (08:59→18:01)
[2022-02-27 11:30] LABS: Glucose Point of Care 205 mg/dl (65-105)
--- NOTE | 2022-02-27 11:42 | ECG_ITS ---
Measurements Intervals [place] Rate: 62 P: 1 DC: 194 QRS: 1 QRSD: 102 T: 40 QT: 434 QTc: 442 Interpretive Statements SINUS RHYTHM INFERIOR MYOCARDIAL INFARCTION , PROBABLY OLD POOR R-WAVE PROGRESSION COMPARED TO ECG 02/24/2022 16:32:16 ANTERIOR Q-WAVES ARE NO LONGER PRESENT/SLIGHTLY ALTERED PRECORDIAL LEAD POSITION Electronically Signed On 02-27-2022 14:37:36 CDT by Earl Arcos M.D.
[2022-02-27] MEDS: INSULIN ASPART (*BKC) 100 UNITS/ML SUB-Q (13:33)
[2022-02-27 14:29] LABS: Basophils Percent Auto 0.5 % (0.2-1.2); Eosinophils Absolute Auto 0.5 K/mm3 (0-0.3); Eosinophils Percent Auto 7.5 % (0-4.4); Immature Granulocyte Absolute 0.01 K/mm3 (0.00-0.031); Immature Granulocyte Percent A 0.2 % (0-0.5); Lymphocytes Absolute Auto 1.69 K/mm3 (0.9-3.2); Lymphocytes Percent Auto 26.2 % (18.3-44.2); Monocytes Absolute Auto 1.2 K/mm3 (0.1-0.6); Monocytes Percent Auto 18.3 % (2.6-8.5); Neutrophils Absolute Auto 3.1 K/mm3 (1.3-6.7); Neutrophils Percent Auto 47.3 % (45.5-73.1)
--- NOTE | 2022-02-27 16:04 | PM.IMPN ---
Progress Note: A&P Assessment and Plan (1) Atypical chest pain: Code(s): R07.89 - Other chest pain Status: Acute Assessment and Plan: Patient continues to have chest pain that is more consistent with chest wall musculoskeletal pain. Troponin negative x3. EKG showing normal sinus rhythm and chronic findings. Repeat EKG essentially unchanged. Chest x-ray clear. COVID negative. No need for cardiology consult at this time. Not believed to be cardiac related. Will stop tele. (2) Shortness of breath: Code(s): R06.02 - Shortness of breath Status: Acute Assessment and Plan: Patient with CASTELAN and SOB which seems to be chronic. She does wheeze so probably related to her asthma. Shortness of breath also may be related to deconditioning. This is troubling symptom for her. She does have albuterol at home. Does not appear to be on any other inhalers. She does not see a lung doctor. High-resolution CT scan shows pulmonary opacities that may reflect hypersensitivity pneumonitis or infectious airway disease. Very mild eosinophilia noted. Not currently wheezing. Will have Pulmonary see the patient. Consider steroids. V/Q scan shows large perfusion abnormality in the right upper lobe on the lateral view. Radiology recommended a chest x-ray so will repeat. (3) Type 2 diabetes mellitus with hyperglycemia: Code(s): E11.65 - Type 2 diabetes mellitus with hyperglycemia Status: Acute Assessment and Plan: A1c 10.9. The patient's blood glucose was reviewed on 02/27 Glucose remains poorly controlled. She is on Lantus 35U QHS and Novolog 7U at meals. Fasting glucose 127 this morning. Continue AccuCheks covering with sliding scale. Hypoglycemia protocol available as needed. Continue current medications. Dietitian and personal development educator to see (4) Coronary artery disease: Code(s): I25.10 - Atherosclerotic heart disease of [place] coronary artery without angina pectoris Status: Acute Assessment and Plan: Patient with CAD status post CABG. Continue medical management with Plavix, aspirin, Lopressor and Zocor. (5) Asthma: Code(s): J45.909 - Unspecified asthma, uncomplicated Status: Acute Assessment and Plan: No wheezing. Continue scheduled Xopenex. As above. (6) Congestive heart failure: Code(s): I50.9 - Heart failure, unspecified Status: Acute Assessment and Plan: Patient has a history of CHF. She is followed by Dr. Sanchez. BNP 400's. Echo was technically difficult but showed normal LV size and preserved systolic contractility with LVH. She had grade 1 diastolic dysfunction. Continue Bumex. (7) Anemia: Code(s): D64.9 - Anemia, unspecified Status: Acute Assessment and Plan: Patient is followed by a executive recruiter at [facility]. Hemoglobin stable at 11.2 today. Will continue to monitor Subjective Date/time seen: 02/27/22 16:04 Interval history: 71yo female with DM, CHF, Asthma and CKD here for chest pain and SOB. Assuming care. Chart reviewed. Chest pain has been present since her CABG December 2020. Very localized to the upper right side of her CABG incision. She also has SOB mostly with exertion. SHe has a cough that is nonproductive and also causes chest and back pain. She has multiple complaints including fatigue and poor appetite. Nebulizer treatments help. She does wheeze from her asthma Exam Narrative: AF 97.5 164/68 66 16 97% ra Gen - NARD Chest - CTA bilaterally, nml RR. Palpable chest wall pain right upper chest. Incision well healed. CV - RRR S1/S2. Tele showing no significant dysrhythmia Abd - Soft, obese, positive bowel sounds. Tenderness around the periumbilical incision Ext - 1+right lower extremity edema (chronic from vein grafting) Neuro - Alert and oriented. Nonfocal exam. Psych - Nml mood with anxious affect Skin - Warm and dry Objective Data Eleanor
[2022-02-27 16:53] LABS: Glucose Point of Care 145 mg/dl (65-105)
[2022-02-27] MEDS: INSULIN GLARGINE (*BKC) 100 UNITS/ML 35 UNITS SUB-Q (20:05)
[2022-02-27] MEDS: PANTOPRAZOLE 40 MG TABLET PO (20:05)
[2022-02-27] MEDS: ACETAMINOPHEN 325 MG TABLET 650 MG PO (20:05)
[2022-02-27] MEDS: traMADol HCL (*CRX) 25 MG TABLET PO (20:14)
[2022-02-27 20:18] LABS: Glucose Point of Care 251 mg/dl (65-105)
--- NOTE | 2022-02-27 20:24 | PCRCNOTE ---
Pt is stating she is having chest pain with her cough that radiates from the front of her chest on the right side into the back on her right side. Pt stated she would like for the pulmonary doctor to take note of this.
[2022-02-28] VITALS (10 sets, daily range): BP systolic 148–149; BP diastolic 60–71; PULSE 60–78; RESP 16–18; TEMP 36.1–36.3; O2SAT 96–100; BMI 50.0
[2022-02-28] MEDS: LEVALBUTEROL NEB 1.25 MG/3 ML 0.63 MG INHALATION ×3 (02:20→14:29)
[2022-02-28] MEDS: LEVOTHYROXINE SODIUM 50 MCG TABLET PO (05:34)
[2022-02-28 06:14] LABS: Basophils Percent Auto 0.6 % (0.2-1.2); Eosinophils Absolute Auto 0.5 K/mm3 (0-0.3); Eosinophils Percent Auto 7.5 % (0-4.4); Hematocrit 35.3 % (37.0-47.0); Immature Granulocyte Absolute 0.01 K/mm3 (0.00-0.031); Immature Granulocyte Percent A 0.1 % (0-0.5); Lymphocytes Absolute Auto 1.94 K/mm3 (0.9-3.2); Mean Corpuscular HGB Conc 31.2 g/dl (32-36); Mean Corpuscular Hemoglobin 29.1 pg (26-34); Mean Corpuscular Volume 93.4 fl (80-100); Mean Platelet Volume 12.3 fl (7.4-10.4); Monocytes Absolute Auto 1.2 K/mm3 (0.1-0.6); Monocytes Percent Auto 18.5 % (2.6-8.5); Neutrophils Percent Auto 44.3 % (45.5-73.1); Platelet Count Result 194 k/mm3 (150-375); Red Blood Count 3.78 M/mm3 (4.2-5.4); Red Cell Distribution Width 15.1 % (11.5-14.5); White Blood Count 6.7 K/mm3 (4.5-10.0)
[2022-02-28 06:34] LABS: Anion Gap 3 mmol/L (8-16); Blood Urea Nitrogen 24 mg/dL (7-17); Calcium 8.5 mg/dL (8.4-10.2); Carbon Dioxide 33 mmol/L (22-30); Chloride 100 mmol/L (98-107); Estimated CRCL calculation 40 ml/min; Estimated Glomerular Filt Rate 38; Glucose 140 mg/dL (65-110); Magnesium 1.8 mg/dL (1.6-2.3); Potassium 4.6 mmol/L (3.4-5.0); Sodium 136 mmol/L (137-145)
[2022-02-28 08:16] LABS: Glucose Point of Care 132 mg/dl (65-105)
[2022-02-28] MEDS: BUMETANIDE 1 MG TABLET PO (08:18)
[2022-02-28] MEDS: METOPROLOL TARTRATE 12.5 MG TABLET 37.5 MG PO (08:18)
[2022-02-28] MEDS: ENOXAPARIN 40 MG/0.4 ML SYRINGE SUB-Q (08:18)
[2022-02-28] MEDS: IRBESARTAN 150 MG TABLET PO (08:18)
[2022-02-28] MEDS: ASPIRIN 81 MG CHEWABLE TABLET PO (08:18)
[2022-02-28] MEDS: POTASSIUM CHLORIDE 10 MEQ TABLET.ER 20 MEQ PO (08:18)
[2022-02-28] MEDS: INSULIN ASPART (*BKC) 100 UNITS/ML 7 UNITS SUB-Q ×2 (08:19→12:16)
[2022-02-28] MEDS: CLOPIDOGREL BISULFATE 75 MG TABLET PO (08:19)
[2022-02-28] MEDS: FLUTICASONE PROPIONATE 0.05% NA SPR 16 GM BTL (*BKC) 1 SPRAY NASAL (08:20)
[2022-02-28] MEDS: CALCIUM CARBONATE (TUMS) 500 MG (200 MG ELEMENTAL) PO (08:57)
--- NOTE | 2022-02-28 09:53 | PM.CNPUL ---
Assessment and Plan Assessment and plan (1) Chest pain: Code(s): R07.9 - Chest pain, unspecified Status: Acute (2) Shortness of breath: Code(s): R06.02 - Shortness of breath Status: Acute Assessment and Plan: this 71-year-old female with a history of morbid obesity, history of coronary artery disease status post coronary artery bypass grafting in December of 2020, history of left ventricular diastolic dysfunction with evidence of elevated pulmonary artery systolic pressure on previous echocardiogram, also evidence of left atrial enlargement, nonsmoker has had chronic shortness of breath on exertion. Chest diagnostic studies showed no evidence of lung infiltrates. The patient's shortness of breath is most likely multifactorial related to morbid obesity,and left ventricular diastolic dysfunction with development of pulmonary hypertension. As stated on the echocardiogram in December of 2020, the pulmonary artery systolic pressure was calculated at 68 mmHg. The patient has evidence of left ventricular diastolic dysfunction with large left atrium. all suggesting pulmonary arterial hypertension related to left ventricular diastolic dysfunction. It is quite likely that the patient also has sleep disordered breathing which also contributes to pulmonary hypertension, although on the last home sleep study she had only mild obstructive sleep apnea. The patient needs repeat sleep study preferably in the lab, given her multiple comorbidities. She has nasal allergies but no evidence of obstructive airway disease like asthma as stated; she had no evidence of obstruction on the last PFT done approximately 2 years ago. The elevated eosinophil count on last CBC could be due to nasal allergies for which she has been on treatment. Regarding the right upper anterior chest pain, this is most likely musculoskeletal given the tenderness to palpation in the right parasternal area and also in the right upper anterior chest wall. Given the history of fibromyalgia it is unclear whether this chest wall pain is also related to fibromyalgia. Plan:I had a lengthy discussion with the patient regarding further management. The patient needs to return to [facility]monary [facility] for evaluation, with measurement of exhaled NO to exclude hyperreactive airway disease, possibly new pulmonary function testing and most importantly repeat sleep study in the lab to exclude obstructive sleep apnea. I made no change to the patient's medications. I discussed the case with Dr. Dorantes. (3) Congestive heart failure: Code(s): I50.9 - Heart failure, unspecified Status: Acute (4) Coronary artery disease: Code(s): I25.10 - Atherosclerotic heart disease of [place] coronary artery without angina pectoris Status: Acute (5) Type 2 diabetes mellitus with hyperglycemia: Code(s): E11.65 - Type 2 diabetes mellitus with hyperglycemia Status: Acute (6) Essential hypertension: Code(s): I10 - Essential (primary) hypertension Status: Acute (7) Pulmonary hypertension: Code(s): I27.20 - Pulmonary hypertension, unspecified Status: Acute (8) Chronic renal failure, stage 3 (moderate): Code(s): N18.3 - Chronic kidney disease, stage 3 (moderate) Status: Acute History of Present Illness History of Present Illness Consult date: 02/28/22 Chief complaint: hyperglycemia,, chest pain Narrative: this 71-year-old female presented with shortness of breath and right upper anterior chest pain. The patient has multiple medical problems including morbid obesity, history of hypertension, diabetes mellitus, coronary artery disease status post coronary artery bypass grafting, Chronic kidney disease stage 3, history of anemia, history of stroke and fibromyalgia. Patient stated that she has had chronic shortness of breath with any movement, especially since December of 2020 when she underwent coronary artery bypass grafting. Workup prior
[2022-02-28 11:40] LABS: Glucose Point of Care 177 mg/dl (65-105)
[2022-02-28] MEDS: SIMVASTATIN 20 MG TABLET PO (12:16)
[2022-02-28] MEDS: polyethylene glycoL 3350 17 GM POWD.PACK PO (12:24)
--- NOTE | 2022-02-28 13:11 | PM.DS ---
DS: Admitting Diagnosis Discharge Date 02/28/22 Admitting Diagnosis Chest pain and SOB DS: Discharge Diagnosis Discharge Diagnosis (1) Atypical chest pain: Code(s): R07.89 - Other chest pain Status: Acute (2) Shortness of breath: Code(s): R06.02 - Shortness of breath Status: Acute (3) Type 2 diabetes mellitus with hyperglycemia: Code(s): E11.65 - Type 2 diabetes mellitus with hyperglycemia Status: Acute (4) Coronary artery disease: Code(s): I25.10 - Atherosclerotic heart disease of [place] coronary artery without angina pectoris Status: Acute (5) Asthma: Code(s): J45.909 - Unspecified asthma, uncomplicated Status: Acute (6) Congestive heart failure: Code(s): I50.9 - Heart failure, unspecified Status: Acute (7) Anemia: Code(s): D64.9 - Anemia, unspecified Status: Acute DS: Summary Hospital Course Reason for hospitalization: 71yo female with DM, CHF, Asthma and CKD here for chest pain and SOB. Please see H&P for details. Hospital Course: Patient presents with chest pain that is more consistent with chest wall musculoskeletal pain.? Troponin negative x3.? EKG showing normal sinus rhythm and chronic findings.? Repeat EKG essentially unchanged.? Chest x-ray was clear. COVID negative. Patient also with CASTELAN and SOB which seems to be chronic (since her CABG).? She does wheeze so possibly related to her asthma.? Shortness of breath also may be related to deconditioning.? This is a troubling symptom for her.? She does have albuterol at home. She does not see a lung doctor.? High-resolution CT scan shows pulmonary opacities that may reflect hypersensitivity pneumonitis or infectious airway disease.? Very mild eosinophilia noted.?Echo was technically difficult but showed normal LV size and preserved systolic contractility with LVH.? She had grade 1 diastolic dysfunction.??Pulmonary was consulted. V/Q scan shows large perfusion abnormality in the right upper lobe on the lateral view.?Repeat CXR was clear and was felt that the prominent soft tissues and similar changes (in different areas) in a prior lung perfusion scan that the current perfusion scan abnormalities may be related to overlying soft tissue artifact. Venous doppler was negative for DVT. A1c 10.9.? Glucose improved. She was able to see the global consumer sector vice president here. Pulmonary felt the shortness of breath was multifactorial. Etiologies include morbid obesity, LV dysfunction, and/or pulmonary hypertension. She also had mild obstructive sleep apnea on sleep study recently. Asthma may be contributing as well. Mildly elevated eosinophil count noted. She does have fibromyalgia which could explain some of the chest wall tenderness. Pulmonary recommended following up in the clinic for pulmonary function tests and possibly repeat sleep study. Findings were discussed in detail with the patient. She is unhappy with the fact that no one can find an etiology for her chronic dyspnea. Encouraged her to discuss her symptoms with her primary care doctor since patient has multiple different complaints including early satiety among others. Patient is agreeable for discharge with close follow-up. Patient overall did well and was able to be discharged home on 02/28/2022. Status at Discharge Cognitive/behavioral status at discharge: Stable Time Spent with Patient Time attestation: Total time spent providing and/or coordinating discharge services: 38 minutes Time spent: Greater than 30 minutes Exam Narrative: AF 97.3 149/71 63 16 96% ra Gen - NARD Chest - CTA bilaterally, nml RR. CV - RRR S1/S2 Abd - Soft, obese, NT, +BS Ext - trace lower extremity edema Neuro - Alert and oriented. Nonfocal exam. Psych - depressed mood and affect Skin - Warm and dry DS: Data Data Completed and Pending Labs on day of discharge: Labs from last 24 hours 02/28/22 02/28/22 02/28/22 11:26 07:43 06:02
== END 2022-02-28 16:10 | disposition home or self-care (01) | DRG 313 ==
LOC: ANHED 19:20 → ANH3MEDSUR 02-25 00:38
PROVIDERS: Emergency Medicine; Nurse Practitioner; Physician Assistant; Admitting Provider Internal Medicine; Emergency Provider Emergency Medicine; PCP Physician Assistant; Visit Provider Internal Medicine
DX: R07.89 Other chest pain (principal); I13.0 Hypertensive heart and chronic kidney disease with heart failure and stage 1 through stage 4 chronic kidney disease, or unspecified chronic kidney disease; I69.354 Hemiplegia and hemiparesis following cerebral infarction affecting left non-dominant side; Z68.43 Body mass index [BMI] 50.0-59.9, adult; I50.32 Chronic diastolic (congestive) heart failure; E11.65 Type 2 diabetes mellitus with hyperglycemia; I25.10 Atherosclerotic heart disease of native coronary artery without angina pectoris; J45.909 Unspecified asthma, uncomplicated; R91.8 Other nonspecific abnormal finding of lung field; D64.9 Anemia, unspecified; Z20.822 Contact with and (suspected) exposure to COVID-19; N18.30 Chronic kidney disease, stage 3 unspecified; D72.828 Other elevated white blood cell count; E11.22 Type 2 diabetes mellitus with diabetic chronic kidney disease; E11.319 Type 2 diabetes mellitus with unspecified diabetic retinopathy without macular edema; E11.40 Type 2 diabetes mellitus with diabetic neuropathy, unspecified; E66.01 Morbid (severe) obesity due to excess calories; E78.5 Hyperlipidemia, unspecified; F41.9 Anxiety disorder, unspecified; G47.33 Obstructive sleep apnea (adult) (pediatric); I27.20 Pulmonary hypertension, unspecified; K21.9 Gastro-esophageal reflux disease without esophagitis; M79.7 Fibromyalgia; R29.898 Other symptoms and signs involving the musculoskeletal system; R53.1 Weakness; R68.81 Early satiety; Z95.1 Presence of aortocoronary bypass graft; Z79.02 Long term (current) use of antithrombotics/antiplatelets; Z79.4 Long term (current) use of insulin; Z88.0 Allergy status to penicillin; Z96.651 Presence of right artificial knee joint; Z98.49 Cataract extraction status, unspecified eye; Z90.710 Acquired absence of both cervix and uterus; Z90.89 Acquired absence of other organs; Z79.82 Long term (current) use of aspirin
CPT/HCPCS: 36415; 71046; 71250; 78580; 80048; 80053; 82948; 83036; 83690; 83735; 83880; 84484; 85025; 85027; 93005; 93970; 94640; 96372; 96374; 99285; A9270; A9540; C8929; C9803; G0378; J1650; J1815; Q9957; U0003; U0005

== ENCOUNTER 2022-03-21 15:12 | Outpatient (CLI) | payer MEDICARE, SELFPAY ==
[2022-03-21 16:53] LABS: CRP 2.6 mg/dL (<1.0)
[2022-03-21 17:11] LABS: Erythrocyte Sedimentation Rate 117 mm/hr (0-20)
== END 2022-03-21 15:13 | disposition home or self-care (01) ==
PROVIDERS: PCP Physician Assistant; Visit Provider Physician Assistant
DX: R70.0 Elevated erythrocyte sedimentation rate (principal); M94.0 Chondrocostal junction syndrome [Tietze]
CPT/HCPCS: 36415; 85652; 86140

== ENCOUNTER 2022-05-29 11:00 | Outpatient (RCR) | payer SELFPAY ==
[2022-04-07 15:59] VITALS: PULSE 101
[2022-04-19 12:12] LABS: Glucose Point of Care 269 mg/dl (65-105)
[2022-04-27 12:08] LABS: Glucose Point of Care 223 mg/dl (65-105)
[2022-05-03 12:09] LABS: Glucose Point of Care 240 mg/dl (65-105)
[2022-05-08 12:15] LABS: Glucose Point of Care 211 mg/dl (65-105)
[2022-05-08 12:15] LABS: Glucose Point of Care 130 mg/dl (65-105)
[2022-05-18 11:32] LABS: Glucose Point of Care 120 mg/dl (65-105)
[2022-05-29 12:09] LABS: Glucose Point of Care 133 mg/dl (65-105)
== END 2022-07-12 08:07 | disposition home or self-care (01) ==
LOC: ANHCPREHAB 11:00
PROVIDERS: Visit Provider Nurse Practitioner Adult Health
DX: I50.9 Heart failure, unspecified (principal)
CPT/HCPCS: 99199

== ENCOUNTER 2022-06-16 19:11 | Emergency (ER) | payer MEDICARE, SELFPAY ==
--- NOTE | ~2022-06-16 | CT_ITS ---
EXAMINATION: CT abdomen pelvis wo con DATE: 06/17/2022 02:47 INDICATION: Right sided abdominal pain radiating to right buttock TECHNIQUE: Computed tomography (CT) of the abdomen and pelvis was performed without intravenous contr ast. Automated exposure control and iterative reconstruction technique were employed. Exam dose: 141 1.51 mGy-cm total exam DLP. COMPARISON: 10/25/2021 complete abdominal ultrasound examination FINDINGS: Minimal dependent left lower lobe atelectasis. Status post sternotomy. Cardiomegaly. No pericardial or pleural effusion. Approximately 9.5 mm right hepatic dome probable cyst of the liver is otherwise unremarkable. The gallbladder is present. No apparent gallbladder wall thickening or any pericholecystic fluid or f at stranding. No bile duct or pancreatic duct dilatation. No pancreatic mass lesion or calcification. Normal splenic size. No adrenal mass lesion. Subtle small right renal calculus or arterial calcification. Calcification of the left renal hilus is likely arterial. No ureteral calculus or hydroureteronephrosis is noted on either side. There are ca lcified phleboliths in the gonadal veins and bilateral calcified pelvic phleboliths. The urinary bladder is unremarkable. The uterus is surgically absent. There is atherosclerotic calcification but normal caliber of the abdominal aorta, iliac arteries. No intraperitoneal or retroperitoneal or pelvic mass lesion or adenopathy or ascites is noted. Small sliding hiatal hernia. No bowel obstruction or intraperitoneal free air. Probable appendectomy. Moderate to moderately severe degenerative disc disease at L3-4, L4-5 and L5-S1. No suspicious osteolytic or osteoblastic lesions are noted. IMPRESSION: 9.5 mm right hepatic dome cyst Small sliding hiatal hernia. Status post hysterectomy Reviewed, dictated and finalized at [facility] Reviewed, dictated and finalized at [facility]
[2022-06-16 19:35] VITALS: BP 139/69; PULSE 73; RESP 18; TEMP 36.4; O2SAT 100
[2022-06-16 21:35] LABS: Basophils Percent Auto 0.4 % (0.2-1.2); Eosinophils Absolute Auto 0.3 K/mm3 (0-0.3); Eosinophils Percent Auto 4.1 % (0-4.4); Hematocrit 34.7 % (37.0-47.0); Hemoglobin 11.2 g/dL (12.0-15.0); Immature Granulocyte Absolute 0.01 K/mm3 (0.00-0.031); Immature Granulocyte Percent A 0.1 % (0-0.5); Lymphocytes Absolute Auto 1.76 K/mm3 (0.9-3.2); Lymphocytes Percent Auto 25.5 % (18.3-44.2); Mean Corpuscular HGB Conc 32.3 g/dl (32-36); Mean Corpuscular Hemoglobin 29.6 pg (26-34); Mean Corpuscular Volume 91.8 fl (80-100); Monocytes Absolute Auto 0.8 K/mm3 (0.1-0.6); Neutrophils Percent Auto 57.9 % (45.5-73.1); Platelet Count Result 183 k/mm3 (150-375); Red Blood Count 3.78 M/mm3 (4.2-5.4); Red Cell Distribution Width 16.4 % (11.5-14.5); White Blood Count 6.9 K/mm3 (4.5-10.0)
[2022-06-16 21:45] LABS: Alanine Aminotransferase 15 U/L (6-35); Albumin Level 3.9 g/dL (3.5-5.1); Alkaline Phosphatase 73 U/L (38-126); Anion Gap 6 mmol/L (8-16); Aspartate Amino Transferase 27 U/L (14-36); Bilirubin,Total 0.4 mg/dL (0.2-1.3); Blood Urea Nitrogen 35 mg/dL (7-17); Calcium 8.7 mg/dL (8.4-10.2); Carbon Dioxide 28 mmol/L (22-30); Chloride 102 mmol/L (98-107); Estimated CRCL calculation 35 ml/min; Estimated Glomerular Filt Rate 33; Glucose 355 mg/dL (65-110); Lipase 86 U/L (23-300); Potassium 4.1 mmol/L (3.4-5.0); Sodium 136 mmol/L (137-145)
[2022-06-16 21:51] LABS: Appearance Urine Clear (Clear); Bilirubin Urine Negative (Negative); Blood Urine Negative (Negative); Color Urine Yellow (Yellow); Glucose Urine UA 3+ mg/dL (Negative); Ketones Urine Negative (Negative); Leukocyte Esterase Ur Negative LEU/UL (Negative); Nitrate Urine Negative (Negative); Protein Urine 2+ mg/dL (Negative); Specific Grav Ur 1.015 (1.001-1.035); Urobilinogen Urine 0.2 mg/dL (<2.0); pH Urine 5.5 (5.0-9.0)
[2022-06-16 21:54] LABS: Bacteria Urine Trace /hpf; RBC Urine 0-2 /hpf (0-2); Squamous Epithelial Cell Urine Few /hpf (Few); WBC Urine 0-3 /hpf
[2022-06-16 21:55] LABS: Add Urine Microscopic? YES
--- NOTE | 2022-06-17 01:21 | PC.NURSE ---
patient states she is here with complaint of right side and back pain that radiates down her right leg
--- NOTE | 2022-06-17 01:35 | ED.GENADULT ---
HPI - General Adult General Chief complaint: Abdominal Pain Stated complaint: left sided pain, radiates down leg and buttocks Time Seen by Provider: 06/17/22 01:10 Source: RN notes reviewed History of Present Illness HPI narrative: Patient presents emergency room from home for abdominal pain. Patient states that she has been having pain in her right lower abdomen the pain is described as sharp and stabbing in nature and radiates around into her back and down her right leg. She states that the pain has been ongoing since she had a colonoscopy performed on 26 May she states she did have some initial nausea and vomiting with the pain but that has improved but the pain worsened today which caused her to come to the emergency department for further evaluation. She denies any fevers or chills chest pain or shortness of breath denies any diarrhea or any other symptoms Related Data Home Medications Medication Instructions Recorded Confirmed clopidogrel 75 mg tablet 75 mg PO DAILY 02/18/21 04/07/22 metoprolol tartrate 37.5 mg tablet 37.5 mg PO Q12H 02/18/21 04/07/22 potassium chloride 10 mEq 20 meq PO BID 02/18/21 04/07/22 tablet,extended release (K-Tab) blood sugar diagnostic (FreeStyle 02/21/21 04/07/22 Lite Strips) levothyroxine 50 mcg tablet 50 mcg PO DAILY 02/21/21 04/07/22 insulin lispro 100 unit/mL See Rx Instructions .Route .COMPLEX 04/04/21 04/07/22 subcutaneous pen (Humalog KwikPen (U-100) Insulin) insulin glargine 100 unit/mL (3 56 unit subcut HS 04/15/21 04/07/22 mL) subcutaneous pen (Lantus Solostar U-100 Insulin) pantoprazole 40 mg tablet,delayed 40 mg PO HS 04/15/21 04/07/22 release coenzyme Q10 10 mg capsule 10 mg PO BID 02/25/22 04/07/22 simvastatin 20 mg tablet 20 mg PO QACLUNCH 02/25/22 04/07/22 bumetanide 2 mg tablet 2 mg PO BID 04/07/22 04/07/22 ergocalciferol (vitamin D2) 1,250 1,250 mcg PO WEEKLY 04/07/22 04/07/22 mcg (50,000 unit) capsule lidocaine 4 % topical gel 1 applic topical BID 04/07/22 04/07/22 pregabalin 75 mg capsule 75 mg PO TID 04/07/22 04/07/22 sennosides 8.6 mg tablet (senna) 8.6 mg PO DAILY 04/07/22 04/07/22 sucralfate 1 gram tablet (Carafate) 1 g PO QID 04/07/22 04/07/22 terbinafine 1 % topical gel 1 ea topical BID 04/07/22 04/07/22 Allergies Allergy/AdvReac Type Severity Reaction Status Date / Time Aqnblsq-RQW-GoA Reductase Allergy Mild Cramping Verified 02/24/22 16:43 Inhibitor of the [Abepigb-Gjd-Gvp Reductase Muscles Inhibitor] Penicillins Allergy Itching Verified 02/24/22 16:43 Review of Systems Review of Systems: Gen.: Denies fevers or chills ENT: Denies congestion Respiratory: Denies shortness of breath or cough CV: Denies chest pain or palpitations GI: See HPI Musculoskeletal: Denies back pain or muscle pain Neuro: Denies numbness, tingling, weakness or focal weakness Skin: Denies rash Except as documented, all other systems reviewed and negative PMF Past Medical History Medical History Anxiety Chronic anemia Chronic kidney disease, stage 3 Baseline creatinine appears to be around 1.50. Dyslipidemia Essential hypertension Gastroesophageal reflux disease Grade II diastolic dysfunction Ejection fraction at that time was 60 to 65%. History of cerebrovascular accident (01/2015) Residual left-sided paresthesias. Insulin dependent type 2 diabetes mellitus Complicated by diabetic retinopathy, neuropathy, and nephropathy. Hemoglobin A1c was 8.4% in September 2020. Morbid obesity Obstructive sleep apnea (~04/2020) Mild FILI noted on home sleep study. Severe pulmonary arterial systolic hypertension (~01/2020) No obvious etiology has been found as of yet. Followed by Dr. Anastasiya Johnson. Shinglkriss (~1999) Surgical History Surgical History History of 2 sections History of arthroplasty of right knee History of cataract
[2022-06-17] MEDS: SODIUM CHLORIDE 0.9% IV 1,000 ML 999 ML IV CONT (02:49)
[2022-06-17 04:13] LABS: Glucose Point of Care 272 mg/dl (65-105)
[2022-06-17] MEDS: traMADol HCL (*CRX) 50 MG TABLET PO (04:20)
== END 2022-06-17 05:09 | disposition home or self-care (01) ==
PROVIDERS: Emergency Provider Emergency Medicine
DX: R10.31 Right lower quadrant pain (principal); M54.50 Low back pain, unspecified; I13.0 Hypertensive heart and chronic kidney disease with heart failure and stage 1 through stage 4 chronic kidney disease, or unspecified chronic kidney disease; E11.22 Type 2 diabetes mellitus with diabetic chronic kidney disease; N18.30 Chronic kidney disease, stage 3 unspecified; I50.30 Unspecified diastolic (congestive) heart failure; E11.319 Type 2 diabetes mellitus with unspecified diabetic retinopathy without macular edema; E11.40 Type 2 diabetes mellitus with diabetic neuropathy, unspecified; E11.21 Type 2 diabetes mellitus with diabetic nephropathy; I69.954 Hemiplegia and hemiparesis following unspecified cerebrovascular disease affecting left non-dominant side; D64.9 Anemia, unspecified; E78.5 Hyperlipidemia, unspecified; I27.21 Secondary pulmonary arterial hypertension; K21.9 Gastro-esophageal reflux disease without esophagitis; E89.0 Postprocedural hypothyroidism; G47.33 Obstructive sleep apnea (adult) (pediatric); E66.01 Morbid (severe) obesity due to excess calories; Z68.42 Body mass index [BMI] 45.0-49.9, adult; Z96.651 Presence of right artificial knee joint; Z98.49 Cataract extraction status, unspecified eye; Z90.710 Acquired absence of both cervix and uterus; Z79.82 Long term (current) use of aspirin; Z79.4 Long term (current) use of insulin; K76.89 Other specified diseases of liver; K44.9 Diaphragmatic hernia without obstruction or gangrene
CPT/HCPCS: 36415; 74176; 80053; 81001; 82948; 83690; 85025; 96361; 96365; 99284; A9270; J0131; J7030

== ENCOUNTER 2022-08-24 17:24 | Emergency (ER) | payer MEDICARE, SELFPAY ==
[2022-08-24 17:38] VITALS: BP 157/68; PULSE 86; RESP 12; TEMP 36.5; O2SAT 99
--- NOTE | 2022-08-24 19:10 | ED.FEMALEGU ---
HPI - Female Genitourinary General Chief complaint: Upper Respiratory Infection Stated complaint: sore throat/ear pain Time Seen by Provider: 08/24/22 18:50 Source: patient, RN notes reviewed and old records reviewed Mode of arrival: ambulatory Limitations: no limitations History of Present Illness HPI Narrative: 72 year old female presents to express care with complaints of bilateral ear pain greatest on left with some cough and slight sore throat since yesterday. She also reports that she feels hot urgency when she urinates and vburning since yesterday with lower back pain since yesterday. Patient denies any known fevers but has had a few chills. Patient denies any vaginal discharge or itching.Patient denies any known ill contacts, has had COVID vaccinations and also flu shot. She reports that she has been taking Tylenol for her symptoms and did take AZO for her urinary burning with last dose last PM. MD elicited complaint: UTI and other (ear pain, cough, mild sore throat) Onset (ago): day(s) (1) Vaginal discharge: none Related Data Home Medications Medication Instructions Recorded Confirmed clopidogrel 75 mg tablet 75 mg PO DAILY 02/18/21 08/24/22 metoprolol tartrate 37.5 mg tablet 37.5 mg PO Q12H 02/18/21 08/24/22 potassium chloride 10 mEq 20 meq PO BID 02/18/21 08/24/22 tablet,extended release (K-Tab) blood sugar diagnostic (FreeStyle 02/21/21 08/24/22 Lite Strips) levothyroxine 50 mcg tablet 50 mcg PO DAILY 02/21/21 08/24/22 insulin lispro 100 unit/mL See Rx Instructions .Route .COMPLEX 04/04/21 08/24/22 subcutaneous pen (Humalog KwikPen (U-100) Insulin) insulin glargine 100 unit/mL (3 56 unit subcut HS 04/15/21 08/24/22 mL) subcutaneous pen (Lantus Solostar U-100 Insulin) pantoprazole 40 mg tablet,delayed 40 mg PO HS 04/15/21 08/24/22 release coenzyme Q10 10 mg capsule 10 mg PO BID 02/25/22 08/24/22 simvastatin 20 mg tablet 20 mg PO QACLUNCH 02/25/22 08/24/22 bumetanide 2 mg tablet 2 mg PO BID 04/07/22 08/24/22 ergocalciferol (vitamin D2) 1,250 1,250 mcg PO WEEKLY 04/07/22 08/24/22 mcg (50,000 unit) capsule lidocaine 4 % topical gel 1 applic topical BID 04/07/22 08/24/22 pregabalin 75 mg capsule 75 mg PO TID 04/07/22 08/24/22 sennosides 8.6 mg tablet (senna) 8.6 mg PO DAILY 04/07/22 08/24/22 sucralfate 1 gram tablet (Carafate) 1 g PO QID 04/07/22 08/24/22 terbinafine 1 % topical gel 1 ea topical BID 04/07/22 08/24/22 Allergies Allergy/AdvReac Type Severity Reaction Status Date / Time Etbywzd-QZL-XmN Reductase Allergy Mild Cramping Verified 08/24/22 17:51 Inhibitor of the [Oimhuys-Ryq-Nnv Reductase Muscles Inhibitor] Penicillins Allergy Itching Verified 08/24/22 17:51 Review of Systems Review of Systems: CONSTITUTIONAL: Denies fever, chills, or sweats. EYES: Denies visual changes, redness, or discharge. ENT: Denies rhinorrhea, congestion, mild sore throat, bilateral otalgia left greatest CARDIOVASCULAR: Denies chest pain, palpitations, or edema. RESPIRATORY: dry cough denies dyspnea. GASTROINTESTINAL: Denies abdominal pain, nausea, vomiting, or diarrhea. GENITOURINARY: reports dysuria no visible blood noted, some urgency SKIN: Denies rash or itching. MUSCULOSKELETAL: Reports lower back pain, joint pain, or myalgia. NEUROLOGIC: Denies headache, numbness, or weakness. PSYCHIATRIC: Positive for history anxiety or depression. All systems reviewed & are unremarkable except as noted in HPI and below PMFSH Past Medical History Medical History Anxiety Chronic anemia Chronic kidney disease, stage 3 Baseline creatinine appears to be around 1.50. Dyslipidemia Essential hypertension Gastroesophageal reflux disease Grade II diastolic dysfunction Ejection fraction at that time was 60 to 65%. History of cerebrovascular accident (01/2015) Residual left-sided paresthesias. Insulin dependent type 2 diabetes mellitus Complicated by
== END 2022-08-24 19:37 | disposition home or self-care (01) ==
PROVIDERS: Emergency Provider Registered Nurse; PCP Family Medicine
DX: J06.9 Acute upper respiratory infection, unspecified (principal); N39.0 Urinary tract infection, site not specified; I12.9 Hypertensive chronic kidney disease with stage 1 through stage 4 chronic kidney disease, or unspecified chronic kidney disease; E11.22 Type 2 diabetes mellitus with diabetic chronic kidney disease; N18.30 Chronic kidney disease, stage 3 unspecified; Z79.4 Long term (current) use of insulin; E78.5 Hyperlipidemia, unspecified; K21.9 Gastro-esophageal reflux disease without esophagitis; I69.354 Hemiplegia and hemiparesis following cerebral infarction affecting left non-dominant side; E66.01 Morbid (severe) obesity due to excess calories; Z68.42 Body mass index [BMI] 45.0-49.9, adult; G47.33 Obstructive sleep apnea (adult) (pediatric)
CPT/HCPCS: 81003; 87077; 87086; 87186; 99213; G0463

== ENCOUNTER 2022-09-08 10:34 | Outpatient (CLI) | payer MEDICARE, SELFPAY ==
--- NOTE | ~2022-09-08 | XR_ITS ---
EXAMINATION: XR UGI w small bowel DATE: 09/08/2022 12:52 INDICATION: Iron deficiency anemia TECHNIQUE: The patient drank thin barium. Conventional supine abdomen radiographs and fluoroscopic sp ot radiographs of the esophagus, stomach, and proximal small bowel were obtained. Additional overhead radiographs were obtained during the transit through the small bowel. Spot fluoroscopic images of t he small bowel were obtained upon contrast reaching the cecum. Standard protocol of imaging for the u pper GI portion of the examination was modified due to patient's limited mobility and ability to va d. A total of 4 overhead radiographs and 994 fluoroscopic images were recorded. Fluoroscopy exposure time was 3.2 minutes. COMPARISON: None. FINDINGS: The esophagus is normal without mass or stricture. Esophageal motility is normal. Small sliding-type hiatal hernia with gastroesophageal junction approximately 3-4 cm above level of the diaphragm. There was an episode of gastroesophageal reflux of a moderate amount of contrast to the level of the upper thoracic esophagus with provocative maneuvers. The stomach and proximal small bowel are normal. Lai sit time from the stomach to proximal colon was approximately 30 minutes. There is normal caliber and mucosal fold pattern throughout the small bowel. Terminal ileum is normal. IMPRESSION: 1. Small sliding-type hiatal hernia with one episode of gastroesophageal reflux with provocative yaneth uvers. Otherwise normal upper GI and small bowel follow-through. Reviewed, dictated and finalized at [facility] [employer] IMPRESSION: 1. Small sliding-type hiatal hernia with one episode of gastroesophageal reflux with provocative maneuvers. Otherwise normal upper GI and small bowel follow-t hrough.
== END 2022-09-08 10:35 | disposition home or self-care (01) ==
DX: D50.9 Iron deficiency anemia, unspecified (principal); K44.9 Diaphragmatic hernia without obstruction or gangrene
CPT/HCPCS: 74240; 74248

== ENCOUNTER 2022-10-03 17:12 | Outpatient (CLI) | payer MEDICARE, SELFPAY ==
[2022-10-03 17:50] LABS: Anion Gap 3 mmol/L (8-16); Blood Urea Nitrogen 25 mg/dL (7-17); Calcium 9.2 mg/dL (8.4-10.2); Carbon Dioxide 31 mmol/L (22-30); Chloride 100 mmol/L (98-107); Estimated Glomerular Filt Rate 38; Glucose 185 mg/dL (65-110); Phosphorus 3.8 mg/dL (2.5-4.5); Potassium 3.7 mmol/L (3.4-5.0); Sodium 134 mmol/L (137-145)
[2022-10-03 18:20] LABS: Total Protein Urine Random 173 mg/dL; Ur Ttl Prot Creatinine Ratio 0.78 mg/mg (0-0.20)
[2022-10-03 18:45] LABS: Erythrocyte Sedimentation Rate 68 mm/hr (0-20)
== END 2022-10-03 17:13 | disposition home or self-care (01) ==
PROVIDERS: Visit Provider Internal Medicine Nephrology
DX: N18.32 Chronic kidney disease, stage 3b (principal)
CPT/HCPCS: 36415; 80069; 82570; 83970; 84156; 85652

== ENCOUNTER 2022-11-06 15:02 | Outpatient (CLI) | payer MEDICARE, SELFPAY ==
[2022-11-06 16:19] LABS: Cholesterol 241 mg/dL (0-200); HDL Direct 78 mg/dL; Triglycerides 103 mg/dL (<150)
[2022-11-06 16:30] LABS: LDL Cholesterol Direct 92 mg/dL
== END 2022-11-06 15:03 | disposition home or self-care (01) ==
PROVIDERS: Visit Provider Internal Medicine Cardiovascular Disease
DX: I25.10 Atherosclerotic heart disease of native coronary artery without angina pectoris (principal); E11.69 Type 2 diabetes mellitus with other specified complication; E78.2 Mixed hyperlipidemia
CPT/HCPCS: 36415; 80061

== ENCOUNTER 2022-11-07 11:48 | Emergency (ER) | payer MEDICARE, SELFPAY ==
[2022-11-07 11:58] VITALS: BP 176/55; PULSE 84; RESP 16; TEMP 36.6; O2SAT 100
--- NOTE | 2022-11-07 12:08 | ED.GENADULT ---
HPI - General Adult General Chief complaint: Back Pain/Injury Stated complaint: back pain/itchy Time Seen by Provider: 11/07/22 12:08 Source: patient Mode of arrival: ambulatory Limitations: no limitations History of Present Illness HPI narrative: 72 y/o female with Hx DM, CVA, CKD, HTN, CHF presented for c/o right flank pain and blister worsening over the past 3 days. States clothes feel painful. Pain is to most of the right side of the back and radiates to the front of right lower ribs. Currently taking Tylenol and pregabalin for peripheral neuropathy. Endorses history of shingles and states this feels similar. Denies recent illness. Patient also reports 'bubbles in urine' and would like urine checked. Denies dysuria or hematuria. Endorses unchanged urinary frequency related to diuretic. Denies n/v/d/f/c. Related Data Home Medications Medication Instructions Recorded Confirmed clopidogrel 75 mg tablet 75 mg PO DAILY 02/18/21 09/18/22 metoprolol tartrate 37.5 mg tablet 37.5 mg PO Q12H 02/18/21 09/18/22 potassium chloride 10 mEq 20 meq PO BID 02/18/21 09/18/22 tablet,extended release (K-Tab) blood sugar diagnostic (FreeStyle 02/21/21 09/18/22 Lite Strips) levothyroxine 50 mcg tablet 50 mcg PO DAILY 02/21/21 09/18/22 insulin lispro 100 unit/mL See Rx Instructions .Route .COMPLEX 04/04/21 09/18/22 subcutaneous pen (Humalog KwikPen (U-100) Insulin) insulin glargine 100 unit/mL (3 56 unit subcut HS 04/15/21 09/18/22 mL) subcutaneous pen (Lantus Solostar U-100 Insulin) pantoprazole 40 mg tablet,delayed 40 mg PO HS 04/15/21 09/18/22 release coenzyme Q10 10 mg capsule 10 mg PO BID 02/25/22 09/18/22 simvastatin 20 mg tablet 20 mg PO QACLUNCH 02/25/22 09/18/22 bumetanide 2 mg tablet 2 mg PO BID 04/07/22 09/18/22 ergocalciferol (vitamin D2) 1,250 1,250 mcg PO WEEKLY 04/07/22 09/18/22 mcg (50,000 unit) capsule lidocaine 4 % topical gel 1 applic topical BID 04/07/22 09/18/22 pregabalin 75 mg capsule 75 mg PO TID 04/07/22 09/18/22 sennosides 8.6 mg tablet (senna) 8.6 mg PO DAILY 04/07/22 09/18/22 sucralfate 1 gram tablet (Carafate) 1 g PO QID 04/07/22 09/18/22 terbinafine 1 % topical gel 1 ea topical BID 04/07/22 09/18/22 Allergies Allergy/AdvReac Type Severity Reaction Status Date / Time Khenlmz-PVM-HbV Reductase Allergy Mild Cramping Verified 09/18/22 11:39 Inhibitor of the [Kbcoanv-Xus-You Reductase Muscles Inhibitor] Penicillins Allergy Itching Verified 09/18/22 11:39 Review of Systems Review of Systems: CONSTITUTIONAL: Denies body aches, fever, chills, or sweats. EYES: Denies visual changes, redness, or discharge. ENT: Denies rhinorrhea, congestion CARDIOVASCULAR: Denies chest pain, palpitations, or edema. RESPIRATORY: Denies cough or dyspnea. GASTROINTESTINAL: Denies abdominal pain, nausea, vomiting, or diarrhea. SKIN: reports blister MUSCULOSKELETAL: Denies back pain, joint pain, or myalgia. NEUROLOGIC: Denies headache, numbness, or weakness. [facility] Past Medical History Medical History Anxiety Chronic anemia Chronic kidney disease, stage 3 Baseline creatinine appears to be around 1.50. Dyslipidemia Essential hypertension Gastroesophageal reflux disease Grade II diastolic dysfunction Ejection fraction at that time was 60 to 65%. History of cerebrovascular accident (01/2015) Residual left-sided paresthesias. Insulin dependent type 2 diabetes mellitus Complicated by diabetic retinopathy, neuropathy, and nephropathy. Hemoglobin A1c was 8.4% in September 2020. Morbid obesity Obstructive sleep apnea (~04/2020) Mild FILI noted on home sleep study. Severe pulmonary arterial systolic hypertension (~01/2020) No obvious etiology has been found as of yet. Followed by Dr. Anastasiya Johnson. Shingles (~1999) Surgical History Surgical History History of 2 sections
== END 2022-11-07 12:47 | disposition home or self-care (01) ==
PROVIDERS: Emergency Provider Nurse Practitioner Family
DX: B02.9 Zoster without complications (principal); I12.9 Hypertensive chronic kidney disease with stage 1 through stage 4 chronic kidney disease, or unspecified chronic kidney disease; E11.22 Type 2 diabetes mellitus with diabetic chronic kidney disease; N18.30 Chronic kidney disease, stage 3 unspecified; Z79.4 Long term (current) use of insulin; E78.5 Hyperlipidemia, unspecified; I69.354 Hemiplegia and hemiparesis following cerebral infarction affecting left non-dominant side; I27.21 Secondary pulmonary arterial hypertension; K21.9 Gastro-esophageal reflux disease without esophagitis
CPT/HCPCS: 81003; 99213; G0463

== ENCOUNTER 2023-01-15 10:19 | Inpatient (IN) | payer MEDICARE, SELFPAY ==
[2023-01-15] VITALS (9 sets, daily range): BP systolic 156–181; BP diastolic 53–67; PULSE 59–78; RESP 16–20; TEMP 35.9–36.5; O2SAT 94–100; BMI 54.1
--- NOTE | ~2023-01-15 | XR_ITS ---
Clinical Indication: Shortness of breath AP and lateral views of the chest: Comparison: 02/27/2022 Findings: The lungs are clear, without evidence of focal consolidation or pleural effusion. Cardiome diastinal silhouette is within normal limits. Patient is status post median sternotomy. Bones and sof t tissues are otherwise unremarkable. Impression: Clear lungs. Reviewed, dictated and finalized at location . Impression: Clear lungs.
--- NOTE | 2023-01-15 10:30 | ECG_ITS ---
Measurements Intervals [place] Rate: 74 P: 17 KS: 239 QRS: 17 QRSD: 100 T: 77 QT: 415 QTc: 462 Interpretive Statements SINUS RHYTHM WITH FIRST DEGREE AV BLOCK POSSIBLE ANTERIOR MYOCARDIAL INFARCTION , PROBABLY OLD [30 ms Q WAVE IN V3/V4, OR R < 0.2 mV IN V4] POSSIBLE INFERIOR MYOCARDIAL INFARCTION , PROBABLY OLD [30 ms Q WAVE IN II/aVF] ABNORMAL ECG COMPARED TO ECG 02/27/2022 12:24:06 FIRST DEGREE AV BLOCK NOW PRESENT Electronically Signed On 01-15-2023 10:43:27 CDT by Ascencion Arevalo M.D.
[2023-01-15 11:55] LABS: Basophils Percent Auto 0.3 % (0.2-1.2); Eosinophils Absolute Auto 0.1 K/mm3 (0-0.3); Hematocrit 35.4 % (37.0-47.0); Hemoglobin 11.3 g/dL (12.0-15.0); Immature Granulocyte Absolute 0.01 K/mm3 (0.00-0.031); Immature Granulocyte Percent A 0.2 % (0-0.5); Immature Platelet Fraction Pct 11.3 % (0.9-11.2); Lymphocytes Percent Auto 29.5 % (18.3-44.2); Mean Corpuscular HGB Conc 31.9 g/dl (32-36); Mean Corpuscular Hemoglobin 30.7 pg (26-34); Mean Corpuscular Volume 96.2 fl (80-100); Mean Platelet Volume 13.1 fl (7.4-10.4); Monocytes Absolute Auto 0.7 K/mm3 (0.1-0.6); Neutrophils Absolute Auto 3.5 K/mm3 (1.3-6.7); Platelet Count Result 146 k/mm3 (150-375); Red Blood Count 3.68 M/mm3 (4.2-5.4); Red Cell Distribution Width 14.7 % (11.5-14.5); White Blood Count 6.1 K/mm3 (4.5-10.0)
[2023-01-15 12:20] LABS: Alanine Aminotransferase 15 U/L (6-35); Alkaline Phosphatase 62 U/L (38-126); Anion Gap 3 mmol/L (8-16); Aspartate Amino Transferase 25 U/L (14-36); Bilirubin,Total 0.5 mg/dL (0.2-1.3); Blood Urea Nitrogen 30 mg/dL (7-17); Calcium 9.1 mg/dL (8.4-10.2); Carbon Dioxide 34 mmol/L (22-30); Chloride 103 mmol/L (98-107); Estimated CRCL calculation 35 ml/min; Estimated Glomerular Filt Rate 33; Glucose 131 mg/dL (65-110); Potassium 4.1 mmol/L (3.4-5.0); Sodium 140 mmol/L (137-145)
[2023-01-15 12:21] LABS: Partial Thromboplastin Time 28.1 SECONDS (22.3-36.8); Prothrombin Time 13.5 Seconds (11.1-14.7)
[2023-01-15 12:31] LABS: NT Pro B Type Natriuretic Pept 1280 pg/mL (19.9-100); Troponin I 0.014 ng/mL (0.000-0.034)
--- NOTE | 2023-01-15 12:50 | ED.GENADULT ---
HPI - General Adult General Chief complaint: Shortness of Breath/Dyspnea Stated complaint: sob/chest pain/swollen legs Time Seen by Provider: 01/15/23 11:57 History of Present Illness HPI narrative: 72-year-old female presented to the emergency department for evaluation of worsening lower extremity swelling. Patient does have a prior history of CHF and does take Bumex twice daily. Patient did have follow-up with her primary care physician last week and this issue was not addressed per the patient. Patient reports she also does have history of chronic kidney disease and does follow-up with Dr. Pulliam. Patient states that she has had some right-sided shortness of breath patient also points to her right chest as the site of chest pain. Does have a prior history of CABG that was done about 1 year ago at [facility]. Patient does follow-up with Dr. Sanchez here. Related Data Home Medications Medication Instructions Recorded Confirmed clopidogrel 75 mg tablet 75 mg PO DAILY 02/18/21 01/15/23 metoprolol tartrate 37.5 mg tablet 37.5 mg PO Q12H 02/18/21 01/15/23 potassium chloride 10 mEq 20 meq PO BID 02/18/21 01/15/23 tablet,extended release (K-Tab) insulin glargine 100 unit/mL (3 50 unit subcut HS 04/15/21 01/15/23 mL) subcutaneous pen (Lantus Solostar U-100 Insulin) pantoprazole 40 mg tablet,delayed 40 mg PO HS 04/15/21 01/15/23 release bumetanide 2 mg tablet 2 mg PO BID 04/07/22 01/15/23 ergocalciferol (vitamin D2) 1,250 1,250 mcg PO WEEKLY 04/07/22 01/15/23 mcg (50,000 unit) capsule pregabalin 75 mg capsule 75 mg PO TID 04/07/22 01/15/23 sennosides 8.6 mg tablet (senna) 8.6 mg PO PRN PRN Constipation 04/07/22 01/15/23 sucralfate 1 gram tablet (Carafate) 1 g PO QID 04/07/22 01/15/23 simvastatin 20 mg tablet 40 mg PO DAILY 12/13/22 01/15/23 ezetimibe 10 mg tablet 10 mg PO DAILY 01/15/23 01/15/23 famotidine 40 mg tablet 40 mg PO DAILY 01/15/23 01/15/23 insulin lispro 100 unit/mL 15 unit subcut TIDWMEAL 01/15/23 01/15/23 subcutaneous pen (Humalog KwikPen (U-100) Insulin) irbesartan 300 mg tablet 150 mg PO DAILY 01/15/23 01/15/23 ketorolac 0.5 % eye drops 1 drp RIGHT EYE TID 01/15/23 01/15/23 Allergies Allergy/AdvReac Type Severity Reaction Status Date / Time Ilhghve-KOL-KzO Reductase Allergy Mild Cramping Verified 01/15/23 18:24 Inhibitor of the [Cqvekqa-Usq-Xqr Reductase Muscles Inhibitor] Penicillins Allergy Itching Verified 01/15/23 18:24 Review of Systems Review of Systems: All systems reviewed & are unremarkable except as noted in HPI and below PMFSH Past Medical History Medical History Anxiety Chronic anemia Chronic kidney disease, stage 3 Baseline creatinine appears to be around 1.50. Dyslipidemia Essential hypertension Gastroesophageal reflux disease Grade II diastolic dysfunction Ejection fraction at that time was 60 to 65%. History of cerebrovascular accident (01/2015) Residual left-sided paresthesias. Insulin dependent type 2 diabetes mellitus Complicated by diabetic retinopathy, neuropathy, and nephropathy. Hemoglobin A1c was 8.4% in September 2020. Morbid obesity Obstructive sleep apnea (~04/2020) Mild FILI noted on home sleep study. Severe pulmonary arterial systolic hypertension (~01/2020) No obvious etiology has been found as of yet. Followed by Dr. Anastasiya Johnson. [place]odi (~1999) Surgical History Surgical History History of 2 sections History of arthroplasty of right knee History of cataract extraction History of dilation and curettage History of inguinal hernia repair History of partial thyroidectomy History of tonsillectomy and adenoidectomy History of total hysterectomy Family History Family History Mother , age 80, congestive heart failure Heart disease
[2023-01-15 13:41] LABS: Appearance Urine Clear (Clear); Bacteria Urine Rare /hpf; Bilirubin Urine Negative (Negative); Blood Urine Negative (Negative); Color Urine Yellow (Yellow); Glucose Urine UA Negative (Negative); Ketones Urine Negative (Negative); Leukocyte Esterase Ur Negative LEU/UL (Negative); Nitrate Urine Negative (Negative); Non Pathogenic Casts 0-2; Protein Urine 1+ mg/dL (Negative); RBC Urine 0-2 /hpf (0-2); Squamous Epithelial Cell Urine None seen /hpf (Few); Urobilinogen Urine 0.2 mg/dL (<2.0); WBC Urine 0-5 /hpf; pH Urine 5.5 (5.0-9.0)
[2023-01-15 13:48] LABS: Add Urine Microscopic? YES
[2023-01-15] MEDS: FUROSEMIDE INJ 40 MG/4 ML VIAL IV PUSH ×2 (15:36→20:12)
--- NOTE | 2023-01-15 16:01 | PC.NURSE ---
Viktor placed on pt.
--- NOTE | 2023-01-15 18:05 | ADMGEN ---
This patient, Katlin Calles, was admitted to Medical Room 245-. Patient/family oriented to hospital policies and general routines including ID bracelet, bed and alarms, visiting hours, pain management, procedures, bathroom and other care routines, personal items, smoking policy, room service/diet, and visiting hours. Information on how to activate the Rapid Response Team has been discussed. Patient/Family are encouraged to report perceived risks to care and to ask questions if they do not understand what they are told or what they should do.
[2023-01-16] VITALS (14 sets, daily range): BP systolic 146–166; BP diastolic 48–59; PULSE 61–81; RESP 16–18; TEMP 36.7–36.9; O2SAT 94–98
[2023-01-16] MEDS: PREGABALIN (*CRX) 75 MG CAPSULE PO ×4 (03:12→17:25)
[2023-01-16] MEDS: ACETAMINOPHEN 325 MG TABLET 650 MG PO (03:12)
[2023-01-16] MEDS: LEVOTHYROXINE SODIUM 50 MCG TABLET PO (06:17)
[2023-01-16] MEDS: SUCRALFATE 1 GM TABLET PO ×4 (06:17→21:41)
[2023-01-16] MEDS: ASPIRIN 81 MG CHEWABLE TABLET PO (08:13)
[2023-01-16] MEDS: CLOPIDOGREL BISULFATE 75 MG TABLET PO (08:14)
[2023-01-16] MEDS: EZETIMIBE 10 MG TABLET PO (08:14)
[2023-01-16] MEDS: POTASSIUM CHLORIDE 10 MEQ ER TABLET 20 MEQ PO ×2 (08:14→17:24)
[2023-01-16] MEDS: IRBESARTAN 150 MG TABLET PO (08:15)
[2023-01-16] MEDS: KETOROLAC 0.5% OP SOLN 5 ML BOTTLE 1 DROP RIGHT EYE ×3 (08:15→17:24)
[2023-01-16] MEDS: METOPROLOL TARTRATE 25 MG TABLET PO ×2 (08:15→21:41)
[2023-01-16] MEDS: FLUTICASONE PROPIONATE 0.05% NA SPR 16 GM BTL (*BKC) 1 SPRAY NASAL (08:15)
[2023-01-16] MEDS: FAMOTIDINE 20 MG TABLET 40 MG PO (08:15)
[2023-01-16] MEDS: FUROSEMIDE INJ 40 MG/4 ML VIAL IV PUSH ×2 (08:15→21:40)
[2023-01-16] MEDS: METOPROLOL TARTRATE 12.5 MG TABLET PO ×2 (08:16→21:41)
[2023-01-16] MEDS: SIMVASTATIN 20 MG TABLET 40 MG PO (08:16)
[2023-01-16] MEDS: INSULIN ASPART (*BKC) 100 UNITS/ML 15 UNITS SUB-Q ×3 (08:33→17:24)
[2023-01-16 09:58] LABS: Glucose Point of Care 93 mg/dl (65-105)
--- NOTE | 2023-01-16 10:59 | PM.IMHP ---
H&P: HPI History of Present Illness Date/Time: 01/16/23 10:59 Chief Complaint: Dyspnea Narrative: Date of service: 01/16/2023 Katlin Calles is a 72-year-old female with history of chronic kidney disease, hypertension, grade 2 diastolic dysfunction, type 2 diabetes mellitus, CVA, untreated FILI, CAD s/p CABG 1 year ago who presented to the emergency department with complaints of shortness of breath. Patient states that for about 2 months she has had progressive dyspnea and has noticed swelling ?all over. She has noticed weight gain. She mentions that she brought this weight gain up to her therapist, however states they did not inform her that it could be related to her heart. She endorses dyspnea on lesser and lesser exertion as well as orthopnea. She endorses dry cough. She denies chest pain. States that she has been compliant with her medications and takes Bumex twice daily. Her light rail operator is Dr. Sanchez. She believes that since having her CABG 1 year ago, she has had progressive decline become more weak, more dependent on assistance of her partner. Reports she had an episode of diarrhea on route no loose stool since that time. Denies dysuria. On presentation to the ED, her vital signs were stable, she was afebrile, CBC unremarkable, BUN 30, creatinine 1.8, BNP 1280, CXR with clear lungs. At the time of my evaluation, she is feeling somewhat improved. Reports frequent urinations and starting IV Lasix. Believes that her lower extremity swelling is improving. Review of Systems Review of Systems: All systems reviewed & are unremarkable except as noted in HPI and below PMFSH Past Medical History Medical History Anxiety Chronic anemia Chronic kidney disease, stage 3 Baseline creatinine appears to be around 1.50. Dyslipidemia Essential hypertension Gastroesophageal reflux disease Grade II diastolic dysfunction Ejection fraction at that time was 60 to 65%. History of cerebrovascular accident (01/2015) Residual left-sided paresthesias. Insulin dependent type 2 diabetes mellitus Complicated by diabetic retinopathy, neuropathy, and nephropathy. Hemoglobin A1c was 8.4% in September 2020. Morbid obesity Obstructive sleep apnea (~04/2020) Mild FILI noted on home sleep study. Severe pulmonary arterial systolic hypertension (~01/2020) No obvious etiology has been found as of yet. Followed by Dr. Anastasiya Johnson. [place] (~1999) Surgical History Surgical History History of 2 sections History of arthroplasty of right knee History of cataract extraction History of dilation and curettage History of inguinal hernia repair History of partial thyroidectomy History of tonsillectomy and adenoidectomy History of total hysterectomy Family History Family History Mother , age 80, congestive heart failure Heart disease High cholesterol Hypertension Cerebrovascular accident Diabetes mellitus Father Carcinoma of colon Cancer Sibling Systemic lupus erythematosus Heart disease Cancer Cerebrovascular accident Diabetes mellitus Social History Social History (Updated 01/16/23 @ 14:56 by Nelsy Rodriguez PA-C) Social History: Patient lives at home with her fiance, Deering. She ambulates with a walker. She is mostly independent but does require some assistance of her fiance. She is a full code. She designates Deering as her surrogate decision maker. Her PCP is Mirtha Singleton. Smoking status: Never smoker Alcohol intake: never Substance use: never Lack of Transportation: No Lack of Food: Never True Current Housing: I Have Housing Concerned About Future Housing: No Difficulty Paying Gas/Electric Bills: No Difficulty Paying for Meds: No Currently Unemployed: No Education: Bachelor's Degree Di
[2023-01-16 12:26] LABS: Glucose Point of Care 104 mg/dl (65-105)
[2023-01-16 17:25] LABS: Glucose Point of Care 200 mg/dl (65-105)
[2023-01-16] MEDS: PANTOPRAZOLE 40 MG TABLET PO (21:41)
[2023-01-16] MEDS: INSULIN GLARGINE (*BKC) 100 UNITS/ML 35 UNITS SUB-Q (21:46)
[2023-01-16 21:53] LABS: Glucose Point of Care 146 mg/dl (65-105)
[2023-01-17] VITALS (13 sets, daily range): BP systolic 134–151; BP diastolic 41–63; PULSE 58–78; RESP 16–18; TEMP 36.6–36.7; O2SAT 97–98
--- NOTE | 2023-01-17 | ECHO_ITS ---
Patient Info Name: Katlin Calles Age: 72 years : 1950 Gender: Female Ht: 65 in Wt: 322 lbs BSA: 2.68 m2 HR: 60 bpm Heart Rhythm: Sinus Rhythm Technical Quality: Fair Exam Date: 01/17/2023 1:01 PM Exam Location: [facility] Patient Status: Inpatient Admit Date: 01/16/2023 Staff Ordering Physician: Milton Urbina APRN Monogram Operator: Kavon Britt RDCS Attending Provider: Nelsy Rodriguez PA-C Referring Physician: Ciara DELGADO; Exam Type: CA echo limited w contrast Study Info Indications - worseining HF symptom Complete two-dimensional, color flow and Doppler transthoracic echocardiogram is performed with contrast to opacify the left ventricle and to improve the deliniation of the left ventricle endocardial borders. Contrast/Agitated Saline Contrast/Ag. Saline: Definity Amount: 3.00 ml Summary 1. Left ventricular chamber dimension is mildly enlarged. 2. Left ventricular systolic function is normal, estimated at 65-70%. 3. There is severely increased left ventricular wall thickness. 4. The inferior wall is hypokinetic. 5. Left atrial chamber dimension is mildly enlarged. 6. There is mild tricuspid valve regurgitation. 7. The mitral valve has thickened leaflets. 8. There is mild aortic valve calcification. Left Ventricle Left ventricular chamber dimension is mildly enlarged. Left ventricular systolic function is normal, estimated at 65-70%. There is severely increased left ventricular wall thickness. The inferior wall is hypokinetic. All other biggs appear normal. Right Ventricle Right ventricular chamber dimension is normal. Right ventricular systolic function is normal. Left Atria Left atrial chamber dimension is mildly enlarged. Right Atria Right atrial chamber dimension is normal. Atrial Septum Intact interatrial septum visualized by color flow imaging. Aortic Valve There is trace aortic valve regurgitation. There is mild aortic valve calcification. Pulmonic Valve The pulmonic valve is normal. There is trace pulmonic regurgitation. Mitral Valve The mitral valve has thickened leaflets. There is trace mitral valve regurgitation. Tricuspid Valve The tricuspid valve leaflets are normal. There is mild tricuspid valve regurgitation. No pulmonary hypertension, estimated pulmonary arterial systolic pressure is 23 mmHg. Pericardium/Pleural The pericardium appears normal. Aorta The aortic root size at the sinus of Valsalva is normal. There is mild aortic atherosclerosis. Tricuspid Valve Name Value Normal TV Regurgitation Doppler TR Peak Velocity 180 cm/s TR Peak Gradient 13 mmHg Estimated PAP/RSVP RA Pressure 10 mmHg <=5 PA Systolic Pressure 23 mmHg <36 RV Systolic Pressure 23 mmHg <36 Ventricles Name Value Normal LV Dimensions 2D/MM IVS Diastolic Thickness (2D)
[2023-01-17 05:44] LABS: Hematocrit 33.9 % (37.0-47.0); Hemoglobin 10.8 g/dL (12.0-15.0); Immature Platelet Fraction Pct 11.4 % (0.9-11.2); Mean Corpuscular HGB Conc 31.9 g/dl (32-36); Mean Corpuscular Hemoglobin 30.5 pg (26-34); Mean Corpuscular Volume 95.8 fl (80-100); Mean Platelet Volume 13.2 fl (7.4-10.4); Platelet Count Result 137 k/mm3 (150-375); Red Blood Count 3.54 M/mm3 (4.2-5.4); Red Cell Distribution Width 14.6 % (11.5-14.5); White Blood Count 5.6 K/mm3 (4.5-10.0)
[2023-01-17 05:53] LABS: Anion Gap 0 mmol/L (8-16); Blood Urea Nitrogen 39 mg/dL (7-17); Calcium 8.6 mg/dL (8.4-10.2); Carbon Dioxide 35 mmol/L (22-30); Chloride 102 mmol/L (98-107); Estimated CRCL calculation 30 ml/min; Estimated Glomerular Filt Rate 26; Glucose 254 mg/dL (65-110); Potassium 4.4 mmol/L (3.4-5.0); Sodium 137 mmol/L (137-145)
[2023-01-17 06:02] LABS: Hemoglobin A1C 10.2 % (<5.7)
[2023-01-17] MEDS: LEVOTHYROXINE SODIUM 50 MCG TABLET PO (06:06)
[2023-01-17] MEDS: SUCRALFATE 1 GM TABLET PO ×4 (06:06→20:20)
[2023-01-17 08:24] LABS: Glucose Point of Care 241 mg/dl (65-105)
[2023-01-17] MEDS: EZETIMIBE 10 MG TABLET PO (08:24)
[2023-01-17] MEDS: CLOPIDOGREL BISULFATE 75 MG TABLET PO (08:24)
[2023-01-17] MEDS: FAMOTIDINE 20 MG TABLET 40 MG PO (08:24)
[2023-01-17] MEDS: ASPIRIN 81 MG CHEWABLE TABLET PO (08:24)
[2023-01-17] MEDS: POTASSIUM CHLORIDE 10 MEQ ER TABLET 20 MEQ PO ×2 (08:24→17:01)
[2023-01-17] MEDS: FLUTICASONE PROPIONATE 0.05% NA SPR 16 GM BTL (*BKC) 1 SPRAY NASAL (08:25)
[2023-01-17] MEDS: FUROSEMIDE INJ 40 MG/4 ML VIAL IV PUSH ×2 (08:25→20:18)
[2023-01-17] MEDS: METOPROLOL TARTRATE 12.5 MG TABLET PO ×2 (08:25→20:20)
[2023-01-17] MEDS: IRBESARTAN 150 MG TABLET PO (08:25)
[2023-01-17] MEDS: KETOROLAC 0.5% OP SOLN 5 ML BOTTLE 1 DROP RIGHT EYE ×3 (08:25→17:01)
[2023-01-17] MEDS: SIMVASTATIN 20 MG TABLET 40 MG PO (08:26)
[2023-01-17] MEDS: PREGABALIN (*CRX) 75 MG CAPSULE PO ×3 (08:26→17:01)
[2023-01-17] MEDS: METOPROLOL TARTRATE 25 MG TABLET PO ×2 (08:26→20:20)
[2023-01-17] MEDS: INSULIN ASPART (*BKC) 100 UNITS/ML SUB-Q ×2 (08:27→11:59)
[2023-01-17] MEDS: INSULIN ASPART (*BKC) 100 UNITS/ML 15 UNITS SUB-Q ×3 (08:27→17:00)
[2023-01-17] MEDS: ACETAMINOPHEN 325 MG TABLET 650 MG PO ×2 (09:15→22:34)
--- NOTE | 2023-01-17 11:02 | PM.IMPN ---
Progress Note: A&P Assessment and Plan (1) Acute exacerbation of CHF (congestive heart failure): Code(s): I50.9 - Heart failure, unspecified Status: Acute Assessment and Plan: HF with preserved EF, on bumex 2mg bid at home per her report. Has been having worsening edema and shortness of breath for months but afraid to come to hospital. Bumex held and lasix 40mg bid started. Appears we are currently at 350ml net output. Renal function downtrending 2/2 to lasix. Will restrict to <2L/day of fluid. Repeat echo. Close monitoring of renal function. (2) Exertional shortness of breath: Code(s): R06.02 - Shortness of breath Status: Acute Assessment and Plan: Noted 03/13 echo with additional noted pulmonary hypertension. She is not short of breath at rest. She states she can manage stairs at home. Will increase her activity and monitor symptoms here. (3) Edema: Code(s): R60.9 - Edema, unspecified Status: Acute Assessment and Plan: Slightly improved per her report. (4) Type 2 diabetes mellitus with hyperglycemia: Code(s): E11.65 - Type 2 diabetes mellitus with hyperglycemia Status: Acute Assessment and Plan: Cont. home regimen. A1c is 10. FBG this am >200, will increase lantus dose tonight to 40 units. (5) Essential hypertension: Code(s): I10 - Essential (primary) hypertension Status: Acute Assessment and Plan: Stable, cont. arb, toprol. (6) Dyslipidemia: Code(s): E78.5 - Hyperlipidemia, unspecified Status: Acute Assessment and Plan: Cont. statin. (7) Falls: Code(s): W19.XXXA - Unspecified fall, initial encounter Status: Acute Assessment and Plan: Falls at home requiring EMS to help patient up. Will have pt/ot evaluation while here. (8) Chronic renal failure, stage 3 (moderate): Code(s): N18.3 - Chronic kidney disease, stage 3 (moderate) Status: Acute Assessment and Plan: Baseline SCr in the 1.6 to 2.3 range and today's values similar. Cont. close monitoring. Time Spent With Patient Time: >30 minutes spent in review of records and face to face encounter with patient. Subjective Date/time seen: 01/17/23 11:02 Interval history: Patient presented 01/15/23 with c/o lower ext edema and shortness of breath in the setting . She was admitted and bumex changed to furosemide. CKD baseline and creatinine on admit 1.8 now to 2.2 this am. This morning the patient states she still feels short of breath with minimal activity. She does note that she does feel some improvement in the lower extremity edema, but it is only mildly improved. Review of Systems Review of Systems: SKIN: ?No rash or pruritis. CARDIOVASCULAR: ?No chest pain, chest pressure or chest discomfort. No palpitations.? RESPIRATORY: ?No cough or sputum. GASTROINTESTINAL: ?No nausea, vomiting, constipation, or diarrhea. Exam Narrative: GENERAL APPEARANCE: Appears to be in no acute distress. HEAD: normocephalic atraumatic EYES: PERRL, EOMI. Vision grossly intact. ENT: Hearing grossly intact, no nasal discharge NECK: Neck supple, trachea midline. CARDIAC: Normal S1/S2. Rhythm is regular. No murmurs, rubs, or gallops. No cyanosis or pallor. Extremities are warm and well perfused. LUNGS: Clear to auscultation without rales, rhonchi, wheezing. Lower lobes diminished.. Respirations even and unlabored. ABDOMEN: BS positive x 4 quadrants. Obese. Soft, nondistended, nontender. No guarding or rebound. PERIPHERAL VASCULAR: Peripheral pulses palpable. Normal perfusion, cap refill <2 seconds. +3 blle edema. NEURO: Follows commands. No focal deficits. SKIN: [place] without lesions or eruptions. PSYCH: Stable, no paranoia or delusional thinking. Objective Data Vital Signs Vital Signs: Vital Signs - 24 hr 01/16/23 12:00 01/16/23 14:30 01/16/23 16:00 Temperature 98.1 F Pulse Rate 61 62 64 Respiratory R
[2023-01-17 11:49] LABS: Glucose Point of Care 229 mg/dl (65-105)
--- NOTE | 2023-01-17 12:54 | PCPTNOTE ---
On 01/17/23, the student, [Shelbi Holguin], provided care and completed [facility] documentation on this patient. I have reviewed the student's documentation and agree with the findings.
[2023-01-17] MEDS: PERFLUTREN LIPID MICROSPHERES 1.5 ML VIAL DILUTED TO 10 ML TOTAL VOLUME IV PUSH (13:30)
[2023-01-17 16:54] LABS: Glucose Point of Care 86 mg/dl (65-105)
[2023-01-17] MEDS: PANTOPRAZOLE 40 MG TABLET PO (20:20)
[2023-01-17 20:22] LABS: Glucose Point of Care 116 mg/dl (65-105)
[2023-01-17] MEDS: INSULIN GLARGINE (*BKC) 100 UNITS/ML 40 UNITS SUB-Q (20:29)
[2023-01-18] VITALS (7 sets, daily range): BP systolic 144; BP diastolic 50; PULSE 57–84; RESP 16–18; TEMP 36.7; O2SAT 97–99
[2023-01-18 05:46] LABS: Hematocrit 33.3 % (37.0-47.0); Hemoglobin 10.5 g/dL (12.0-15.0); Immature Platelet Fraction Pct 12.9 % (0.9-11.2); Mean Corpuscular HGB Conc 31.5 g/dl (32-36); Mean Corpuscular Hemoglobin 30.3 pg (26-34); Mean Corpuscular Volume 96.2 fl (80-100); Platelet Count Result 116 k/mm3 (150-375); Red Blood Count 3.46 M/mm3 (4.2-5.4); Red Cell Distribution Width 14.6 % (11.5-14.5); White Blood Count 6.8 K/mm3 (4.5-10.0)
[2023-01-18 05:50] LABS: Anion Gap 1 mmol/L (8-16); Blood Urea Nitrogen 49 mg/dL (7-17); Calcium 8.1 mg/dL (8.4-10.2); Carbon Dioxide 33 mmol/L (22-30); Chloride 104 mmol/L (98-107); Estimated CRCL calculation 28 ml/min; Estimated Glomerular Filt Rate 24; Glucose 197 mg/dL (65-110); Potassium 4.5 mmol/L (3.4-5.0); Sodium 138 mmol/L (137-145)
[2023-01-18] MEDS: LEVOTHYROXINE SODIUM 50 MCG TABLET PO (06:06)
[2023-01-18] MEDS: SUCRALFATE 1 GM TABLET PO ×2 (07:11→12:07)
[2023-01-18] MEDS: METOPROLOL TARTRATE 12.5 MG TABLET PO (08:01)
[2023-01-18] MEDS: EZETIMIBE 10 MG TABLET PO (08:03)
[2023-01-18] MEDS: CLOPIDOGREL BISULFATE 75 MG TABLET PO (08:03)
[2023-01-18] MEDS: METOPROLOL TARTRATE 25 MG TABLET PO (08:03)
[2023-01-18] MEDS: ASPIRIN 81 MG CHEWABLE TABLET PO (08:04)
[2023-01-18] MEDS: POTASSIUM CHLORIDE 10 MEQ ER TABLET 20 MEQ PO (08:04)
[2023-01-18] MEDS: IRBESARTAN 150 MG TABLET PO (08:04)
[2023-01-18] MEDS: FAMOTIDINE 20 MG TABLET 40 MG PO (08:04)
[2023-01-18] MEDS: SIMVASTATIN 20 MG TABLET 40 MG PO (08:07)
[2023-01-18] MEDS: FLUTICASONE PROPIONATE 0.05% NA SPR 16 GM BTL (*BKC) 1 SPRAY NASAL (08:07)
[2023-01-18] MEDS: FUROSEMIDE INJ 40 MG/4 ML VIAL IV PUSH (08:07)
[2023-01-18] MEDS: KETOROLAC 0.5% OP SOLN 5 ML BOTTLE 1 DROP RIGHT EYE ×2 (08:07→12:36)
[2023-01-18] MEDS: PREGABALIN (*CRX) 75 MG CAPSULE PO (08:11)
[2023-01-18] MEDS: ACETAMINOPHEN 325 MG TABLET 650 MG PO (08:25)
[2023-01-18] MEDS: INSULIN ASPART (*BKC) 100 UNITS/ML 15 UNITS SUB-Q ×2 (08:27→12:35)
[2023-01-18] MEDS: ALBUTEROL SULFATE (*SP) AEROSOL 1 PUFF 2 PUFF INHALATION ×2 (08:36→08:37)
[2023-01-18 08:39] LABS: Glucose Point of Care 185 mg/dl (65-105)
--- NOTE | 2023-01-18 10:41 | P.CDI_ITS ---
HFpEF. Diastolic Dysfunction. Acute on chronic. CDI Query Clarification Request CHF noted on the assessment and plan. Bumex listed as a home medication. Patient receiving Lasix. BNP elevated on 01/15/23 lab work. Patient presented with complaints of weight gain, increasing edema and dyspnea. Please specify type and acuity of heart failure if known. * Acute * Chronic * Acute on Chronic * Unknown * Systolic * Diastolic * Combined Systolic and Diastolic * Unknown
[2023-01-18 12:22] LABS: Glucose Point of Care 153 mg/dl (65-105)
--- NOTE | 2023-01-18 12:33 | PM.DS ---
DS: Admitting Diagnosis Discharge Date 01/18/23 Admitting Diagnosis Acute on chronic HFpEF exacerbation, lower ext. edema, CKD 3, FILI, T2DM, HTN DS: Discharge Diagnosis Discharge Diagnosis (1) Chronic renal failure, stage 3 (moderate): Code(s): N18.3 - Chronic kidney disease, stage 3 (moderate) Status: Acute Assessment and Plan: Serum creatinine 2.4 which is the high end of her normal range on lab review. Will resume her home bumex dosing and stop lasix. Nephrology and FP f/u as an outpatient. DS: Summary Hospital Course Reason for hospitalization: Lower ext. edema, shortness of breath Hospital Course: Katlin Calles is a 72 year old female with PMH of ckd3, cad, hfpef who presented on 01/15 with complaint of lower extremity edema and shortness of breath. Symptoms have been worsening over the last several months, but she was fearful to present to the hospital d/t fear of IVs and needles. On presentation she had elevated BNP (1200) and notable lower ext. edema. A CXR was clear. Lungs were generally clear. She was started on IV lasix and an echocardiogram was obtained. The echocardiogram shows EF of 65% with diastolic dysfunction. Katlin responded fairly well to the lasix, with 4L of net output. Her lower extremity edema is decreased. She is not having shortness of breath and is participating with therapy. There is some weakness and I feel gait is slightly impaired, she has outpatient therapy services already in place. Renal function notable increase in serum creatinine up to 2.4 from 1.8. The 2.4 is within her baseline range on chart review. She will discharge to resume the bumex and follow a low sodium diet with a mild fluid restriction (<2L). On day of discharge she is doing well, tolerating diet and activity. She will be arranged for outpatient f/u in the very near future. Status at Discharge Cognitive/behavioral status at discharge: Baseline. Time Spent with Patient Time attestation: Total time spent providing and/or coordinating discharge services: Time spent: Greater than 30 minutes Exam Narrative: GENERAL APPEARANCE: Appears to be in no acute distress. HEAD: normocephalic atraumatic EYES: PERRL, EOMI. Vision grossly intact. ENT: Hearing grossly intact, no nasal discharge NECK: Neck supple, trachea midline. CARDIAC: Normal S1/S2. Rhythm is regular. No murmurs, rubs, or gallops. No cyanosis or pallor. Extremities are warm and well perfused. LUNGS: Clear to auscultation without rales, rhonchi, wheezing. Lower lobes diminished.. Respirations even and unlabored. ABDOMEN: BS positive x 4 quadrants. Obese. Soft, nondistended, nontender. No guarding or rebound. PERIPHERAL VASCULAR: Peripheral pulses palpable. Normal perfusion, cap refill <2 seconds. +3 blle edema. NEURO: Follows commands. No focal deficits. SKIN: [place] without lesions or eruptions. PSYCH: Stable, no paranoia or delusional thinking. DS: Data Data Completed and Pending Labs on day of discharge: Labs from last 24 hours 01/18/23 01/18/23 01/18/23 12:19 08:28 05:22 WBC 6.8 RBC 3.46 L Hgb 10.5 L Hct 33.3 L MCV 96.2 MCH 30.3 MCHC 31.5 L RDW 14.6 H Plt Count 116 L MPV TNP % Immature Plt Fraction 12.9 H Sodium 138 Potassium 4.5 Chloride 104 Carbon Dioxide 33 H Anion Gap 1 L BUN 49 H D Creatinine 2.40 H Estim Creat Clear Calc 28 Estimated GFR 24 L Glucose 197 H POC Capillary Glucose 153 H 185 H Calcium 8.1 L Magnesium 2.0 01/17/23 01/17/23 20:16 16:49 WBC RBC Hgb Hct MCV MCH MCHC RDW Plt Count MPV % Immature Plt Fraction Sodium Potassium Chloride Carbon Dioxide Anion Gap BUN Creatinine Estim Creat Clear Calc Estimated GFR Glucose POC Capillary Glucose 116 H 86 Calcium Magnesium Imaging Radiologist's impression: ITS Impressions Chest X-Ray 01/15/23 12:24 Impress
== END 2023-01-18 15:12 | disposition home or self-care (01) | DRG 291 ==
LOC: ANHED 15:51 → ANH3MEDSUR 16:45 → ANH2MED 17:50
PROVIDERS: Emergency Medicine; Physician Assistant; Admitting Provider Hospitalist; Emergency Provider Emergency Medicine; PCP Physician Assistant; Visit Provider Nurse Practitioner Family
DX: I13.0 Hypertensive heart and chronic kidney disease with heart failure and stage 1 through stage 4 chronic kidney disease, or unspecified chronic kidney disease (principal); I50.33 Acute on chronic diastolic (congestive) heart failure; I69.354 Hemiplegia and hemiparesis following cerebral infarction affecting left non-dominant side; Z68.43 Body mass index [BMI] 50.0-59.9, adult; N18.30 Chronic kidney disease, stage 3 unspecified; D63.1 Anemia in chronic kidney disease; E11.22 Type 2 diabetes mellitus with diabetic chronic kidney disease; E11.65 Type 2 diabetes mellitus with hyperglycemia; E11.319 Type 2 diabetes mellitus with unspecified diabetic retinopathy without macular edema; E11.40 Type 2 diabetes mellitus with diabetic neuropathy, unspecified; E66.01 Morbid (severe) obesity due to excess calories; E78.5 Hyperlipidemia, unspecified; G47.33 Obstructive sleep apnea (adult) (pediatric); I25.10 Atherosclerotic heart disease of native coronary artery without angina pectoris; K21.9 Gastro-esophageal reflux disease without esophagitis; Z96.651 Presence of right artificial knee joint; Z98.49 Cataract extraction status, unspecified eye; Z90.89 Acquired absence of other organs; Z90.710 Acquired absence of both cervix and uterus; Z95.1 Presence of aortocoronary bypass graft; Z79.02 Long term (current) use of antithrombotics/antiplatelets; Z79.4 Long term (current) use of insulin; Z88.0 Allergy status to penicillin
CPT/HCPCS: 36415; 71046; 80048; 80053; 81001; 82948; 83036; 83735; 83880; 84484; 85025; 85027; 85055; 85610; 85730; 93005; 93308; 94640; 96374; 96376; 97110; 97161; 97165; 97530; 99285; A9270; C8924; G0378; J1815; J1940; Q9957

== ENCOUNTER 2023-02-09 10:00 | Outpatient (RCR) | payer MEDICARE, SELFPAY ==
--- NOTE | 2022-12-01 10:39 | PTOPEVAL1 ---
Assessment and note entered by Mary Duarte, PT Evaluation Information Assessment Status Evaluation Diagnosis history of CVA/ general weakness and decreased balance Onset July 2022 Subjective Information have had 2 falls in the past 6 months-- both standing in kitchen, turned to open stove door; use the wheeled walker or cane for walking; have stairs--basement and upstairs at her home with cane and railing can do them; does not drive; live with fiance- he assist with transportation, bathing and home tasks; do exercises at home: have floor foot pedaler, do sitting leg exercises; GOAL: walk better, stand longer, reports about 10 minute tolerance then have to sit down; be able to do stairs without a hand railing- when go out somewhere; Reported Pain Level Pain Score 7: Self Report Additional Pain Score Comments pain back and both knees; Assessment PT Clinical Summary Katlin has the diagnosis of CVA, weakness and decreased gait balance. Her medical history includes CVA in 2013 with L weakness, CABG 2020, HTN and diabetes. And 2 falls in the past 6 months, with standing and turning in the kitchen. She reports pain in her back, R and L knees. With the evaluation: she has weakness of both R and L LE's, 2 minute walking test distance of 225' and Tinetti balance/gait score of 18/28. Skilled PT services are indicated to increase LE strength, gait and balance skills, to improve safety and mobility skills. Plan of Care Interventions Gait Training,Neuro Re-education,Patient/Caregiver Education,Therapeutic Activities,Therapeutic Exercise PT Services Indicated Yes Treatment Frequency and 2x/wk for 5 weeks Duration These treatments will address the objective and functional deficits as defined above. The patient will be advanced safely and appropriately in order for the patient to progress towards his/her prior level of function. Additional exercises will be introduced and as well as a comprehensive home exercise program upon discharge, if needed, ?to ensure carryover of functional gains achieved in the clinic. This treatment plan has been reviewed and agreement upon by the patient.
--- NOTE | 2023-01-05 11:52 | PTOPPROG ---
Assessment and note entered by Mary Duarte, PT Evaluation Information Assessment Status Progress Diagnosis history of CVA/ general weakness and decreased balance Onset July 2022 Subjective Information Katlin reports: feels like she is stronger, but legs still weak; fell when trying to get out of the bathtub; is able to stand and work in the kitchen for about 10-15 min; no problems on the stairs; is afraid she will fall again; use cane or walker in the house and when go out, use the walker; Assessment PT Clinical Summary Katlin has received 9 PT sessions. She continues to have a fear of falling. Back and knee pain limit her. Since the initial evaluation: she has improved with: reported standing/activity tolerance from 10 min to 10-15 minutes; Tinetti balance/gait score of 18 to 25/28; strength of LE with sit/stand without UE use and 20 reps of supine exercises; ability on stairs, with use of one hand railing and is going up/down her staris at home without any issues. Her 2 minute walking test distance decreased by 25' due to having to stop and rest today due to dizziness. And she has had one fall since starting PT--stepping out of the bathtub. The goals were achieved, except walking distance with 2 minute walk test and NOT having any falls. Continue PT 1x/week, to further increase her mobility and balance skills, and work on performing sit/floor transfer. Plan of Care Interventions Gait Training,Neuro Re-education,Patient Education,Therapeutic Activities,Therapeutic Exercise PT Services Indicated Yes Treatment Frequency and 1x/wk for 5 weeks Duration These treatments will address the objective and functional deficits as defined above. The patient will be advanced safely and appropriately in order for the patient to progress towards his/her prior level of function. Additional exercises will be introduced and as well as a comprehensive home exercise program upon discharge, if needed, ?to ensure carryover of functional gains achieved in the clinic. This treatment plan has been reviewed and agreement upon by the patient.
--- NOTE | 2023-02-09 10:48 | PTOPDC ---
Assessment and note entered by Mary Duarte, PT Evaluation Information Assessment Status Discharge Diagnosis history of CVA/ general weakness and decreased balance Onset July 2022 Subjective Information Sean reports: no falls; using wheeled walker all the time; doing leg and back exercises at home; knees continue to hurt; legs keep swelling- she has told ; is doing OK getting in/out bath tub, holding onto facet and rail; agrees to d/c from therapy. Reported Pain Level Pain Score 7,7: Self Report back and bilateral knee pain Additional Pain Score Comments reinforced activity/rest balance due to back and knee pain; continue to use the wheeled walker Assessment PT Clinical Summary Katlin has completed 13 PT sessions. Compared to the last reevaluation: increase R and L hip strength, with progression to standing exercises with UE support; 5 reps sit/stand time is the same; 2 minute walking test distance is 50' less; she reports standing/walking tolerance activity level time about the same and she is doing OK on her stairs at home; Pain in her knees and back continue to limit her activity level. Also has SOB with walking, requires her to stop after walking slightly over 1 minute/150'. She is indep with HEP. The goals were partially met. Discharge PT services. Plan of Care PT Services Indicated No
== END 2023-02-12 08:49 | disposition home or self-care (01) ==
LOC: ANHPT 10:00
PROVIDERS: PCP Physician Assistant; Visit Provider Nurse Practitioner Gerontology
DX: I63.9 Cerebral infarction, unspecified (principal)
CPT/HCPCS: 97110; 97161; 97530

== ENCOUNTER 2023-02-12 17:07 | Outpatient (CLI) | payer MEDICARE, SELFPAY ==
[2023-02-12 18:04] LABS: Albumin Level 4.1 g/dL (3.5-5.1); Anion Gap 9 mmol/L (8-16); Blood Urea Nitrogen 35 mg/dL (7-17); Calcium 9.4 mg/dL (8.4-10.2); Carbon Dioxide 30 mmol/L (22-30); Chloride 102 mmol/L (98-107); Estimated Glomerular Filt Rate 31; Glucose 157 mg/dL (65-110); Phosphorus 4.5 mg/dL (2.5-4.5); Sodium 141 mmol/L (137-145)
== END 2023-02-12 17:08 | disposition home or self-care (01) ==
PROVIDERS: PCP Physician Assistant; Visit Provider Internal Medicine Nephrology
DX: N18.4 Chronic kidney disease, stage 4 (severe) (principal)
CPT/HCPCS: 36415; 80069

== ENCOUNTER 2023-03-06 15:44 | Inpatient (IN) | payer MEDICARE, SELFPAY ==
--- NOTE | ~2023-03-06 | US_ITS ---
EXAMINATION: US venous doppler [facility] DATE: 03/07/2023 08:49 INDICATION: Bilateral lower limb swelling TECHNIQUE: Shepard scale images without and with compression and Doppler images of the bilateral lower e xtremity veins were obtained. COMPARISON: 02/25/2022 FINDINGS: The right common femoral vein, profunda femoral vein, femoral vein, popliteal vein, peroneal trunk, p osterior tibial veins, and greater saphenous vein are patent. The left common femoral vein, profunda femoral vein, femoral vein, popliteal vein, peroneal trunk, po sterior tibial veins, and greater saphenous vein are patent. IMPRESSION: 1. Patent bilateral lower extremity veins. No evidence of deep venous thrombosis. Reviewed, dictated and finalized at location B. IMPRESSION: 1. Patent bilateral lower extremity veins. No evidence of deep venous thrombosi s.
--- NOTE | ~2023-03-06 | CT_ITS ---
EXAMINATION: CT brain wo con DATE: 03/06/2023 19:32 INDICATION: headache, HTN . TECHNIQUE: Computed tomography (CT) of the head was performed without intravenous contrast. The mA wa s adjusted according to patient size. Iterative reconstruction technique was employed. The dose-lengt h product was 605.33 mGy-cm. COMPARISON: 09/07/2021. FINDINGS: No acute intracranial hemorrhage or extra-axial fluid collection. No hydrocephalus, mass, or herniation. No acute ischemic infarct. Unremarkable dural venous sinus attenuation. No acute osseous abnormality. The aerated spaces are clear. Moderate atrophy and chronic white matter change. Atherosclerotic intracranial calcification. Right p arietal occipital encephalomalacia. IMPRESSION: No acute intracranial process. Reviewed, dictated and finalized at location K.
--- NOTE | ~2023-03-06 | XR_ITS ---
EXAMINATION: XR chest 2V DATE: 03/06/2023 17:17 INDICATION: Hypertension. TECHNIQUE: frontal and lateral views of the chest were obtained. COMPARISON: Chest radiograph dated 01/15/2023 FINDINGS: The lungs are clear with no focal airspace opacities, pulmonary edema, pleural effusion or pneumothor ax. Status post median sternotomy with mediastinal surgical clips suggesting prior coronary artery by pass grafting. There are retained epicardial pacemaker leads projecting along the anteroinferior hear t. Cardiomegaly. IMPRESSION: 1. Cardiomegaly. No acute cardiopulmonary disease. Reviewed, dictated and finalized at location A.
[2023-03-06 15:49] VITALS: BP 175/62; PULSE 69; RESP 16; TEMP 36.5; O2SAT 98
--- NOTE | 2023-03-06 16:17 | ECG_ITS ---
Measurements Intervals [place] Rate: 85 P: 16 MA: 220 QRS: 22 QRSD: 110 T: 62 QT: 388 QTc: 462 Interpretive Statements SINUS RHYTHM WITH FIRST DEGREE AV BLOCK POSSIBLE ANTERIOR MYOCARDIAL INFARCTION , PROBABLY OLD PROBABLE INFERIOR MYOCARDIAL INFARCTION , PROBABLY OLD ABNORMAL ECG COMPARED TO ECG 01/15/2023 10:33:08 NO SIGNIFICANT CHANGES Electronically Signed On 03-07-2023 15:00:21 CDT by Gerardo Sanchez M.D.
[2023-03-06 17:53] VITALS: BP 204/66; PULSE 63; RESP 18; O2SAT 100
--- NOTE | 2023-03-06 18:45 | ED.RECABL ---
HPI - Recheck/Abnormal Lab/Rx General Chief Complaint: Recheck/Abnormal Lab/Rx <Diya Altamirano PA-C - Last Filed: 03/07/23 02:23> Stated Complaint: HTN <Diya Altamirano PA-C - Last Filed: 03/07/23 02:23> Time Seen by Provider: 03/06/23 18:04 <Diya Altamirano PA-C - Last Filed: 03/07/23 02:23> History of Present Illness HPI narrative: 72-year-old female with a history of anxiety, CKD stage III, hyperlipidemia, CAD, s/p CABG in 2020, type 2 diabetes, CVA with residual left-sided weakness, FILI, severe pulmonary hypertension, chronic anemia reports for evaluation for bilateral lower extremity edema, chest tightness, shortness of breath and elevated blood pressure. Patient reports she has intermittent shortness of breath and chest tightness at best baseline, however it has worsened today. States she went to [facility] today to have EPO injections and her blood pressure was found to be 200 systolic and was advised to come to the emergency department for evaluation. She is reporting a left-sided posterior headache for the past couple of days. Reports blurred vision that has been chronic but denies new vision changes. Patient has been taking her Bumex twice daily as directed along with all of her hypertensive medications. States she is producing urine, but feels it has decreased recently. States she is not regularly checking her blood pressure, but normally she believes she is around 160 systolic. She reports a intermittent nonproductive cough and a ~25 lb weight gain in the past week. Denies fever, new onset focal numbness or weakness, abdominal pain, chest pain, back pain, urinary complaints. Pt's professor of vegetable science is Dr. Meek. <Diya Altamirano PA-C - Last Filed: 03/07/23 02:23> Related Data Home Medications: Home Medications Medication Instructions Recorded Confirmed clopidogrel 75 mg tablet 75 mg PO DAILY 02/18/21 03/06/23 metoprolol tartrate 37.5 mg tablet 37.5 mg PO Q12H 02/18/21 03/06/23 potassium chloride 10 mEq 20 meq PO BID 02/18/21 03/06/23 tablet,extended release (K-Tab) insulin glargine 100 unit/mL (3 50 unit subcut HS 04/15/21 03/06/23 mL) subcutaneous pen (Lantus Solostar U-100 Insulin) pantoprazole 40 mg tablet,delayed 40 mg PO HS 04/15/21 03/06/23 release bumetanide 2 mg tablet 2 mg PO BID 04/07/22 03/06/23 ergocalciferol (vitamin D2) 1,250 1,250 mcg PO WEEKLY 04/07/22 03/06/23 mcg (50,000 unit) capsule pregabalin 75 mg capsule 75 mg PO TID 04/07/22 03/06/23 sennosides 8.6 mg tablet (senna) 8.6 mg PO PRN PRN Constipation 04/07/22 03/06/23 sucralfate 1 gram tablet (Carafate) 1 g PO QID 04/07/22 03/06/23 simvastatin 20 mg tablet 40 mg PO DAILY 12/13/22 03/06/23 ezetimibe 10 mg tablet 10 mg PO DAILY 01/15/23 03/06/23 famotidine 40 mg tablet 40 mg PO DAILY 01/15/23 03/06/23 insulin lispro 100 unit/mL 15 unit subcut TIDWMEAL 01/15/23 03/06/23 subcutaneous pen (Humalog KwikPen (U-100) Insulin) ketorolac 0.5 % eye drops 1 drp RIGHT EYE TID 01/15/23 03/06/23 diclofenac sodium 1 % topical gel 1 ea topical PRN PRN arthritis 03/06/23 03/06/23 irbesartan 150 mg tablet 150 mg PO DAILY 03/06/23 03/06/23 <Diya Altamirano PA-C - Last Filed: 03/07/23 02:23> Allergies/Adverse Reactions: Allergies Allergy/AdvReac Type Severity Reaction Status Date / Time Xbdrmxy-NQP-VzH Reductase Allergy Mild Cramping Verified 01/31/23 13:59 Inhibitor of the [Tedmffy-Jro-Gic Reductase Muscles Inhibitor] Penicillins Allergy Itching Verified 01/31/23 13:59 <Diya Altamirano PA-C - Last Filed: 03/07/23 02:23> Review of Systems Review of Systems: CONSTITUTIONAL: Denies fever, chills EYES: Denies visual changes, redness, or discharge. ENT: Denies rhinorrhea, congestion, sore throat, or otalgia. CARDIOVASCULAR: See HPI RESPIRATORY: See HPI GASTROINTESTINAL: Denies abdominal pain, nausea, vomiting, or diarrhea. GENITOURINARY: Denies dysuria or hematuria. SKIN:
[2023-03-06 19:13] LABS: Basophils Percent Auto 0.3 % (0.2-1.2); Eosinophils Absolute Auto 0.1 K/mm3 (0-0.3); Hematocrit 34.7 % (37.0-47.0); Hemoglobin 11.2 g/dL (12.0-15.0); Immature Granulocyte Absolute 0.02 K/mm3 (0.00-0.031); Immature Granulocyte Percent A 0.3 % (0-0.5); Lymphocytes Absolute Auto 1.58 K/mm3 (0.9-3.2); Lymphocytes Percent Auto 24.1 % (18.3-44.2); Mean Corpuscular HGB Conc 32.3 g/dl (32-36); Mean Platelet Volume 12.4 fl (7.4-10.4); Monocytes Absolute Auto 0.7 K/mm3 (0.1-0.6); Monocytes Percent Auto 11.1 % (2.6-8.5); Neutrophils Absolute Auto 4.1 K/mm3 (1.3-6.7); Neutrophils Percent Auto 62.2 % (45.5-73.1); Platelet Count Result 156 k/mm3 (150-375); Red Blood Count 3.73 M/mm3 (4.2-5.4); Red Cell Distribution Width 14.9 % (11.5-14.5); White Blood Count 6.6 K/mm3 (4.5-10.0)
[2023-03-06 19:29] LABS: Partial Thromboplastin Time 26.8 SECONDS (22.3-36.8); Prothrombin Time 13.6 Seconds (11.1-14.7)
--- NOTE | 2023-03-06 19:33 | PC.NURSE ---
This RN assumed care of patient. This RN took patient report from VINCENZO Barreto.
[2023-03-06 19:46] LABS: NT Pro B Type Natriuretic Pept 1230 pg/mL (19.9-100); Troponin I < 0.012 ng/mL (0.000-0.034)
[2023-03-06 19:47] LABS: Appearance Urine Clear (Clear); Bacteria Urine Rare /hpf; Bilirubin Urine Negative (Negative); Blood Urine Negative (Negative); Color Urine Yellow (Yellow); Glucose Urine UA 3+ mg/dL (Negative); Ketones Urine Negative (Negative); Leukocyte Esterase Ur Negative LEU/UL (Negative); Nitrate Urine Negative (Negative); Non Pathogenic Casts 0-2; Protein Urine 1+ mg/dL (Negative); Specific Grav Ur 1.027 (1.001-1.035); Squamous Epithelial Cell Urine None seen /hpf (Few); Urobilinogen Urine 0.2 mg/dL (<2.0); WBC Urine 0-5 /hpf
[2023-03-06 19:48] LABS: Alanine Aminotransferase 15 U/L (6-35); Albumin Level 4.1 g/dL (3.5-5.1); Alkaline Phosphatase 68 U/L (38-126); Anion Gap 7 mmol/L (8-16); Aspartate Amino Transferase 21 U/L (14-36); Bilirubin,Total 0.4 mg/dL (0.2-1.3); Blood Urea Nitrogen 33 mg/dL (7-17); Calcium 8.9 mg/dL (8.4-10.2); Carbon Dioxide 29 mmol/L (22-30); Chloride 96 mmol/L (98-107); Estimated CRCL calculation 35 ml/min; Estimated Glomerular Filt Rate 33; Glucose 542 mg/dL (65-110); Lipase 256 U/L (23-300); Potassium 4.6 mmol/L (3.4-5.0); Sodium 132 mmol/L (137-145)
[2023-03-06 19:51] LABS: Add Urine Microscopic? YES
[2023-03-06 20:04] LABS: Influenza A QL RT-PCR Negative (Negative); Influenza B QL RT-PCR Negative (Negative); SARS-CoV-2 RNA PCR Negative (Negative)
[2023-03-06 20:58] LABS: Beta-Hydroxybutyrate/Acetoacetate 0.08 mmol/L (0.02-0.27)
[2023-03-06 21:04] LABS: Glucose Point of Care 450 mg/dl (65-105)
--- NOTE | 2023-03-06 21:53 | PC.NURSE ---
This RN gave report to VINCENZO Flores at IMU. RN questioned whether EDP or hospitalist was going to treat the high glucose level for pt. This RN noted there were no orders besides NPO orders at this time. Charge nurse, Mary Lou made aware.
[2023-03-06 22:01] VITALS: BP 167/69; PULSE 63; RESP 17; O2SAT 100
[2023-03-06 22:28] LABS: Troponin I < 0.012 ng/mL (0.000-0.034)
[2023-03-06 22:33] VITALS: PULSE 63
[2023-03-06] MEDS: METOPROLOL TARTRATE 50 MG TAB PO (22:33)
[2023-03-06] MEDS: INSULIN HUMAN REGULAR (*BKC) 100 UNITS/ML 8 UNITS SUB-Q (22:41)
[2023-03-06 22:42] LABS: Glucose Point of Care 412 mg/dl (65-105)
[2023-03-06 22:50] VITALS: BP 160/81; PULSE 60; RESP 16; TEMP 36.6; O2SAT 94
[2023-03-06 22:59] LABS: D Dimer 1.69 ug/mL (<0.48)
[2023-03-06 23:11] LABS: Transferrin 187 mg/dL (206-381)
[2023-03-06 23:12] LABS: Iron 63 ug/dL (37-170)
[2023-03-06 23:22] LABS: Percent Iron Saturation 22 % (20-50)
[2023-03-06 23:29] LABS: Vitamin D 25 Hydroxy 28.1 ng/mL
[2023-03-07] VITALS (9 sets, daily range): BP systolic 134–181; BP diastolic 54–86; PULSE 53–75; RESP 16–18; TEMP 36.1–36.6; O2SAT 96–100; BMI 54.3
--- NOTE | 2023-03-07 | ECHO_ITS ---
Patient Info Name: Katlin Calles Age: 72 years : 1950 Gender: Female Ht: 65 in Wt: 324 lbs BSA: 2.69 m2 HR: 75 bpm BP: 146 / 86 mmHg Heart Rhythm: Sinus Rhythm Technical Quality: Good Exam Date: 03/07/2023 9:17 AM Exam Location: [facility] Pulmonary Patient Status: Inpatient Admit Date: 03/06/2023 Staff Ordering Physician: Pito Victoria MD Health Actuary: Kavon Britt RDCS Attending Provider: Pito Victoria MD Exam Type: CA echo limited w contrast Study Info Indications - shortness of breath , chest tightness Limited two-dimensional transthoracic echocardiogram is performed with contrast. Summary 1. Technically difficult study with limited views. Definity echo contrast administered. 2. Left ventricular chamber dimension is normal. 3. Left ventricular systolic function is normal, estimated at 60-65%. 4. There is moderately increased left ventricular wall thickness. 5. Left atrial chamber dimension is mildly enlarged. Left Ventricle Left ventricular chamber dimension is normal. Left ventricular systolic function is normal, estimated at 60-65%. There is moderately increased left ventricular wall thickness. Technically difficult study with limited views. Definity echo contrast administered. Right Ventricle Right ventricular chamber dimension is not well visualized. Left Atria Left atrial chamber dimension is mildly enlarged. Right Atria Right atrial chamber dimension is normal. Aortic Valve The aortic valve is probable trileaflet. Pulmonic Valve The pulmonic valve is not well visualized. Mitral Valve The mitral valve has normal leaflets. The mitral valve annulus is moderately calcified. Tricuspid Valve The tricuspid valve leaflets are not well visualized. Pericardium/Pleural The pericardium appears not well visualized. Aorta The aortic root size at the sinus of Valsalva is not well visualized. Ventricles Name Value Normal LV Dimensions 2D/MM IVS Diastolic Thickness (2D) 1.4 cm 0.6-1.0 LVID Diastole (2D) 4.4 cm 3.8-5.2 LVIW Diastolic Thickness (2D) 1.4 cm 0.6-0.9 LVID Systole (2D) 3.3 cm 2.2-3.5 LV Mass (2D Cubed) 254.73 g 67.00-162.00 LV Mass Index (2D Cubed) 95 g/m2 43-95 Relative Wall Thickness (2D) 0.65 LV Fractional Shortening/Ejection Fraction 2D/MM LV Fractional Shortening (2D) 26 % 27-45 LV EF (2D Teicholz) 52 % 54-74 LV Diastolic Volume (4C MOD) 93 ml LV EF (4C MOD) 69 % LV Diastolic Volume (2C MOD) 77 ml LV EF (2C MOD) 51 % LV Diastolic Volume (BP MOD) 85 ml 46-106 LV Diastolic Volume Index (BP MOD) 31 ml/m2 29-61 LV Systolic Volume (BP MOD) 34 ml 14-42 LV Systolic Volume Index (BP MOD) 13 ml/m2 8-24 LV EF (BP MOD) 60 % 54-74 LV Diastolic Length (4C) 8.2 cm LV Systolic Length (4C) 6.9 cm LV Stroke Vo
--- NOTE | 2023-03-07 00:05 | PM.IMHP ---
H&P: HPI History of Present Illness Date/Time: 03/07/23 00:05 Chief Complaint: Hypertension Narrative: This is a 72-year-old female with a history of anxiety, CKD stage 3, hyperlipidemia, CAD, status post CABG in 2020, insulin-dependent diabetes, CVA with residual left-sided weakness, FILI, unclear history of severe pulmonary hypertension negative on last echo, chronic low level anemia, chronic use of EPO, previous admissions for ? CHF exacerbation , history of Moses- Danlos syndrome, chronic history of shortness of breath and chest tightness, who is presenting here to the ER after she was sent from the dialysis center for hypertension. The patient presented to the dialysis center because she gets EPO injections every 2 weeks. At the dialysis center she was seen to have a systolic blood pressure in the 200s and she was advised to come to the ER for evaluation. The patient reports a chronic history of shortness of breath and chest tightness that comes and goes. There is no evidence that this has gotten worse recently. She denies worsening of symptoms. The patient has a host of other medical conditions. She volunteers these. As she is ?anne positive These include chronic whole-body pain with the lower extremities worse, chronic fatigue, recent weight gain, poor appetite particularly in the morning, not using her insulin for the past 2 days, general malaise, worsening lower extremity swelling over the past year, excessive use of people possibly recommended by primary care physician for anemia that is not very severe. In the ER her blood pressure self resolved with no intervention. The ER doctors wanted to give Lasix but I recommended against it because the patient had a negative chest x-ray for any pulmonary edema or pleural effusions. She has mild bilateral hilar frothing suggestive of extremely mild beginnings of volume overload. The patient was noted to have an elevated blood sugar of 542 on initial lab screening. I believe some insulin was given in the ER and the blood sugar dropped to about 450. Her blood pressures in the ER were in the range of 150-170 systolic. Her past medical history is notable for an admission for ? CHF exacerbations about 1.5 months ago. The patient was given IV Lasix for diuresis. She had the same presentation 1.5 months ago. She had weight gain, subjective shortness of breath, elevated BNP. She also had a negative chest x-ray as well. She was given Lasix for diuresis with a rise in her creatinine from 1.8-2.4. And she was discharged and elevated creatinine. It is unlikely this patient was in CHF exacerbation 1.5 months ago. Review of Systems Review of Systems: See [facility] Past Medical History Medical History Anxiety Chronic anemia Chronic kidney disease, stage 3 Baseline creatinine appears to be around 1.50. Dyslipidemia Essential hypertension Gastroesophageal reflux disease Grade II diastolic dysfunction Ejection fraction at that time was 60 to 65%. History of cerebrovascular accident (01/2015) Residual left-sided paresthesias. Insulin dependent type 2 diabetes mellitus Complicated by diabetic retinopathy, neuropathy, and nephropathy. Hemoglobin A1c was 8.4% in September 2020. Morbid obesity Obstructive sleep apnea (~04/2020) Mild FILI noted on home sleep study. Severe pulmonary arterial systolic hypertension (~01/2020) No obvious etiology has been found as of yet. Followed by Dr. Anastasiya Johnson. [place] (~1999) Surgical History Surgical History History of 2 sections History of arthroplasty of right knee History of cataract extraction History of dilation and curettage History of inguinal hernia repair History of partial thyroidectomy History of tonsillectomy and adenoidectomy History of total hysterectomy Family History Family History (Reviewed 03/06/23 @ 18:54 b
[2023-03-07 01:07] LABS: Folic Acid 13.6 ng/mL (2.76->20); Vitamin B12 > 1000.0 pg/mL (239-931)
[2023-03-07 01:24] LABS: Glucose Point of Care 383 mg/dl (65-105)
[2023-03-07 01:43] LABS: Troponin I < 0.012 ng/mL (0.000-0.034)
--- NOTE | 2023-03-07 02:58 | PC.NURSE ---
Dr Vcitoria notified patient developed bradycardia in the low 50s and symptomatic dizziness at rest after receiving 50mg lopressor, BP remained elevated 184/54. Order received to change BID Lopressor back to home dose and add PRN hydralazine. Additional order received to add high dose sliding scale w/ meals and to notify provider if 0600 accu >350.
[2023-03-07 06:40] LABS: Glucose Point of Care 300 mg/dl (65-105)
[2023-03-07] MEDS: INSULIN HUMAN REGULAR (*BKC) 100 UNITS/ML SUB-Q (07:09)
--- NOTE | 2023-03-07 07:37 | PM.IMPN ---
Progress Note: A&P Assessment and Plan (1) CHF (congestive heart failure): Code(s): I50.9 - Heart failure, unspecified Status: Acute (2) Iron deficiency anemia: Code(s): D50.9 - Iron deficiency anemia, unspecified Status: Acute (3) Swelling of both lower extremities: Code(s): M79.89 - Other specified soft tissue disorders Status: Acute (4) Type 2 diabetes mellitus with hyperglycemia: Code(s): E11.65 - Type 2 diabetes mellitus with hyperglycemia Status: Acute (5) Anemia: Code(s): D64.9 - Anemia, unspecified Status: Acute (6) CHF exacerbation: Qualifiers: Heart failure type: diastolic Qualified Code(s): I50.33 - Acute on chronic diastolic (congestive) heart failure Code(s): I50.9 - Heart failure, unspecified Status: Acute Plan (1) CHF (congestive heart failure): ?Code(s): I50.9 - Heart failure, unspecified ?Status:?Acute ?Assessment and Plan: Possible acute on chronic diastolic heart failure chief uncontrolled hypertension Patient has shortness of breath, bilateral lower extremity edema .? -Continue b.i.d. Bumex at this time.? -Can increase as tolerated.? -40mg IV Lasix once -Trend BNP over the long-term.? -Echo pending -edema and tender of lower extremities, follow venous Doppler bilateral lower extremities (2) Chronic kidney disease, stage 3: ?Code(s): N18.3 - Chronic kidney disease, stage 3 (moderate) ?Status:?Chronic ?Assessment and Plan: Last creatinine was 1.8 as well on admission.? Continue to monitor.? Follow-up BMP Avoid nephrotoxic medication (3) Moses-Danlos syndrome: ?Code(s): Q79.60 - Moses-Danlos syndrome, unspecified ?Status:?Acute ?Assessment and Plan: Definitely needs workup with the outpatient setting.? The patient has valvular deficiencies, though mild on the previous echo, should be monitored by an outpatient storm door maker on a chronic basis.? Fatigue is a symptom of EDS. this is likely causing her fatigue. -patient may need referral to outpatient PT OT -her primary care doctor needs to really be involved in her care in this problem (4) Type 2 diabetes mellitus with hyperglycemia: ?Code(s): E11.65 - Type 2 diabetes mellitus with hyperglycemia ?Status:?Acute ?Assessment and Plan: Uncontrolled type 2 diabetes Continue her home insulin regimen of 50 units subcut HS and lispro 15 units t.i.d. BHP 0 point (5) Hypertensive emergency without congestive heart failure: ?Code(s): I16.1 - Hypertensive emergency ?Status:?Acute ?Assessment and Plan: Increase metoprolol to 50 mg b.i.d. ideally keep her blood pressure below 160/100.? Patient has a significant history of diastolic heart failure with left ventricular hypertrophy on last echo.? Very important to keep her normotensive. (6) Iron deficiency anemia: ?Code(s): D50.9 - Iron deficiency anemia, unspecified ?Status:?Acute ?Assessment and Plan: Follow-up iron studies, ferritin, transferrin, B12, folate.? Avoid EPO (7) Swelling of both lower extremities: ?Code(s): M79.89 - Other specified soft tissue disorders ?Status:?Acute ?Assessment and Plan: Likely due to EPO.? Follow-up bilateral lower extremity Dopplers. (8) Vitamin D deficiency: Subjective Date/time seen: 03/07/23 07:37 Interval history: I saw exam patient today. Patient still has general weakness, short of breath with exertion, but patient denies palpitation, chest pain, abdomen pain, nausea vomiting diarrhea dysuria. Exam Narrative: General: Elderly female not in any acute distress HENT: Unremarkable Neck: Supple no JVD, full range of motion Eyes: Extraocular movements intact Lungs: Clear to auscultation bilaterally CV: Extremely quiet heart sounds, normal S1-S2, murmurs difficult to appreciate. No S3 appreciated Legs: 4+ nonpitting edema all the way up through the legs from the fe
[2023-03-07 07:58] LABS: Hemoglobin A1C 10.2 % (<5.7)
[2023-03-07] MEDS: PERFLUTREN LIPID MICROSPHERES 1.5 ML VIAL DILUTED TO 10 ML TOTAL VOLUME IV PUSH (09:00)
--- NOTE | 2023-03-07 09:25 | PC.NURSE ---
Pt off floor @ 0800 for abdominal US. Pt currently undergoing echo. Will pass medications when patient is available.
[2023-03-07] MEDS: INSULIN ASPART (*BKC) 100 UNITS/ML 15 UNITS SUB-Q ×2 (09:33→12:31)
[2023-03-07] MEDS: INSULIN ASPART (*BKC) 100 UNITS/ML SUB-Q ×2 (09:34→12:31)
[2023-03-07] MEDS: METOPROLOL TARTRATE 25 MG TABLET PO ×2 (09:41→21:30)
[2023-03-07] MEDS: METOPROLOL TARTRATE 12.5 MG TABLET PO ×2 (09:41→21:30)
[2023-03-07] MEDS: FLUTICASONE PROPIONATE 0.05% NA SPR 16 GM BTL (*BKC) 1 SPRAY NASAL (09:41)
[2023-03-07] MEDS: KETOROLAC 0.5% OP SOLN 5 ML BOTTLE 1 DROP RIGHT EYE ×3 (09:41→17:34)
[2023-03-07] MEDS: EZETIMIBE 10 MG TABLET PO (09:42)
[2023-03-07] MEDS: CLOPIDOGREL BISULFATE 75 MG TABLET PO (09:42)
[2023-03-07] MEDS: PREGABALIN (*CRX) 75 MG CAPSULE PO ×3 (09:42→17:34)
[2023-03-07] MEDS: LEVOTHYROXINE SODIUM 50 MCG TABLET PO (09:42)
[2023-03-07] MEDS: FAMOTIDINE 20 MG TABLET 40 MG PO (09:42)
[2023-03-07] MEDS: BUMETANIDE 1 MG TABLET 2 MG PO ×2 (09:42→17:34)
[2023-03-07] MEDS: ASPIRIN 81 MG CHEWABLE TABLET PO (09:42)
[2023-03-07] MEDS: SIMVASTATIN 20 MG TABLET 40 MG PO (09:42)
[2023-03-07] MEDS: IRBESARTAN 150 MG TABLET PO (09:42)
[2023-03-07] MEDS: SUCRALFATE 1 GM TABLET PO ×4 (09:42→21:29)
[2023-03-07 10:12] LABS: Glucose Point of Care 279 mg/dl (65-105)
--- NOTE | 2023-03-07 11:26 | IVDEFINITY ---
Prior to administration of IV Definity the patient was educated on the risks and benefits of the imaging enhancing agent including potential adverse side effects. The patient verbalized understanding. Allergies were verified. No exclusion criteria were identified and at least one of the following inclusion criteria were met: 1) physician request, 2) patient technically difficult to image (per the [place] [employer] guidelines of two or more segments not discernable within the apical view), or 3) questionable left ventricular function. ?
[2023-03-07 12:04] LABS: Glucose Point of Care 247 mg/dl (65-105)
[2023-03-07] MEDS: POTASSIUM CHLORIDE 10 MEQ ER TABLET 20 MEQ PO (14:43)
--- NOTE | 2023-03-07 16:52 | PC.NURSE ---
Attempted to contact Dr. Grijalva regarding orders for venous dopplers and echo, as patient already had both procedures performed today. Was unable to reach doctor and message was left.
[2023-03-07 17:00] LABS: Glucose Point of Care 119 mg/dl (65-105)
[2023-03-07] MEDS: FUROSEMIDE INJ 40 MG/4 ML VIAL IV PUSH (17:33)
[2023-03-07 17:40] LABS: Basophils Percent Auto 0.6 % (0.2-1.2); Eosinophils Absolute Auto 0.2 K/mm3 (0-0.3); Eosinophils Percent Auto 2.9 % (0-4.4); Hematocrit 38.2 % (37.0-47.0); Hemoglobin 11.7 g/dL (12.0-15.0); Immature Granulocyte Absolute 0.02 K/mm3 (0.00-0.031); Immature Granulocyte Percent A 0.3 % (0-0.5); Lymphocytes Absolute Auto 2.12 K/mm3 (0.9-3.2); Lymphocytes Percent Auto 30.9 % (18.3-44.2); Mean Corpuscular HGB Conc 30.6 g/dl (32-36); Mean Corpuscular Hemoglobin 30.1 pg (26-34); Mean Corpuscular Volume 98.2 fl (80-100); Monocytes Absolute Auto 0.9 K/mm3 (0.1-0.6); Monocytes Percent Auto 12.8 % (2.6-8.5); Neutrophils Absolute Auto 3.6 K/mm3 (1.3-6.7); Neutrophils Percent Auto 52.5 % (45.5-73.1); Platelet Count Result 158 k/mm3 (150-375); Red Blood Count 3.89 M/mm3 (4.2-5.4); Red Cell Distribution Width 15.4 % (11.5-14.5); White Blood Count 6.9 K/mm3 (4.5-10.0)
[2023-03-07 17:53] LABS: Anion Gap 6 mmol/L (8-16); Blood Urea Nitrogen 33 mg/dL (7-17); Carbon Dioxide 23 mmol/L (22-30); Chloride 103 mmol/L (98-107); Estimated CRCL calculation 37 ml/min; Estimated Glomerular Filt Rate 33; Glucose 101 mg/dL (65-110); Potassium 4.9 mmol/L (3.4-5.0); Sodium 132 mmol/L (137-145)
[2023-03-07 20:06] LABS: Glucose Point of Care 204 mg/dl (65-105)
[2023-03-07] MEDS: PANTOPRAZOLE 40 MG TABLET PO (21:29)
[2023-03-07] MEDS: DICLOFENAC SODIUM 1% 100 GM GEL (*BKC) 1 APPLIC TOPICAL (21:29)
[2023-03-07] MEDS: INSULIN GLARGINE (*BKC) 100 UNITS/ML 50 UNITS SUB-Q (21:30)
[2023-03-07 23:50] LABS: Glucose Point of Care 240 mg/dl (65-105)
[2023-03-08] VITALS: PULSE 62
--- NOTE | 2023-03-08 00:01 | PC.NURSE ---
Dr Victoria notified patient complaining of severe pain uncontrolled by topical Voltaren. Order received for BID PRN naproxen, med conflicts ok to override per provider. May order one time dose of [place] 5-325 if pain unrelieved by naproxen.
[2023-03-08] MEDS: NAPROXEN 250 MG TABLET PO (00:45)
[2023-03-08 04:00] VITALS: PULSE 74
[2023-03-08 04:41] VITALS: BP 147/39; PULSE 61; RESP 16; TEMP 36.1; O2SAT 97
[2023-03-08] MEDS: LEVOTHYROXINE SODIUM 50 MCG TABLET PO (04:52)
[2023-03-08 05:43] LABS: Glucose Point of Care 258 mg/dl (65-105)
[2023-03-08 08:00] VITALS: PULSE 68
[2023-03-08 08:14] LABS: Glucose Point of Care 270 mg/dl (65-105)
[2023-03-08] MEDS: SIMVASTATIN 20 MG TABLET 40 MG PO (08:20)
[2023-03-08] MEDS: PREGABALIN (*CRX) 75 MG CAPSULE PO ×2 (08:21→13:23)
[2023-03-08] MEDS: FAMOTIDINE 20 MG TABLET 40 MG PO (08:21)
[2023-03-08] MEDS: BUMETANIDE 1 MG TABLET 2 MG PO (08:21)
[2023-03-08] MEDS: SUCRALFATE 1 GM TABLET PO ×2 (08:21→13:23)
[2023-03-08] MEDS: ASPIRIN 81 MG CHEWABLE TABLET PO (08:21)
[2023-03-08] MEDS: EZETIMIBE 10 MG TABLET PO (08:21)
[2023-03-08] MEDS: IRBESARTAN 150 MG TABLET PO (08:21)
[2023-03-08] MEDS: CLOPIDOGREL BISULFATE 75 MG TABLET PO (08:22)
[2023-03-08 08:23] VITALS: PULSE 59; PULSE 60
[2023-03-08] MEDS: METOPROLOL TARTRATE 25 MG TABLET PO (08:23)
[2023-03-08] MEDS: METOPROLOL TARTRATE 12.5 MG TABLET PO (08:23)
[2023-03-08] MEDS: KETOROLAC 0.5% OP SOLN 5 ML BOTTLE 1 DROP RIGHT EYE ×2 (08:24→13:23)
[2023-03-08] MEDS: FLUTICASONE PROPIONATE 0.05% NA SPR 16 GM BTL (*BKC) 1 SPRAY NASAL (08:24)
[2023-03-08] MEDS: INSULIN ASPART (*BKC) 100 UNITS/ML SUB-Q ×2 (08:25→13:24)
[2023-03-08] MEDS: INSULIN ASPART (*BKC) 100 UNITS/ML 15 UNITS SUB-Q ×2 (08:25→13:26)
--- NOTE | 2023-03-08 08:25 | PM.IMPN ---
Progress Note: A&P Assessment and Plan (1) CHF (congestive heart failure): Code(s): I50.9 - Heart failure, unspecified Status: Acute (2) Iron deficiency anemia: Code(s): D50.9 - Iron deficiency anemia, unspecified Status: Acute (3) Swelling of both lower extremities: Code(s): M79.89 - Other specified soft tissue disorders Status: Acute (4) Type 2 diabetes mellitus with hyperglycemia: Code(s): E11.65 - Type 2 diabetes mellitus with hyperglycemia Status: Acute (5) Anemia: Code(s): D64.9 - Anemia, unspecified Status: Acute (6) CHF exacerbation: Qualifiers: Heart failure type: diastolic Qualified Code(s): I50.33 - Acute on chronic diastolic (congestive) heart failure Code(s): I50.9 - Heart failure, unspecified Status: Acute Plan (1) CHF (congestive heart failure): ?Code(s): I50.9 - Heart failure, unspecified ?Status:?Acute ?Assessment and Plan: Possible acute on chronic diastolic heart failure chief uncontrolled hypertension Patient has shortness of breath, bilateral lower extremity edema .? -Continue b.i.d. Bumex at this time.? Medication managements per Nephrology and primary care doctor -Can increase as tolerated.? -40mg IV Lasix once -edema and tender of lower extremities, follow venous Doppler bilateral lower extremities Patent bilateral lower extremity veins. No evidence of deep venous thrombosis.02/04 Repeat echocardiogram March 07 shows normal EF, diastolic dysfunction was unable to be evaluated (2) Chronic kidney disease, stage 3: ?Code(s): N18.3 - Chronic kidney disease, stage 3 (moderate) ?Status:?Chronic ?Assessment and Plan: Continue to monitor per Nephrology and PCP at scheduled appointments. I discussed with the patient nurse to schedule follow-up appointments before discharge Avoid nephrotoxic medication (3) Moses-Danlos syndrome: ?Code(s): Q79.60 - Moses-Danlos syndrome, unspecified ?Status:?Acute ?Assessment and Plan: Definitely needs workup with the outpatient setting.? The patient has valvular deficiencies, though mild on the previous echo, should be monitored by an outpatient bander hand on a chronic basis.? Fatigue is a symptom of EDS. this is likely causing her fatigue. -patient may need referral to outpatient PT OT -her primary care doctor needs to really be involved in her care in this problem (4) Type 2 diabetes mellitus with hyperglycemia: ?Code(s): E11.65 - Type 2 diabetes mellitus with hyperglycemia ?Status:?Acute ?Assessment and Plan: Uncontrolled type 2 diabetes Continue her home insulin regimen of 50 units subcut HS and lispro 15 units t.i.d. BHP 0 point (5) Hypertensive emergency without congestive heart failure: ?Code(s): I16.1 - Hypertensive emergency ?Status:?Acute ?Assessment and Plan: Increase metoprolol to 50 mg b.i.d. ideally keep her blood pressure below 160/100.? Patient has a significant history of diastolic heart failure with left ventricular hypertrophy on last echo.? Very important to keep her normotensive. Now blood pressure is controlled in the target (6) Iron deficiency anemia: ?Code(s): D50.9 - Iron deficiency anemia, unspecified ?Status:?Acute ?Assessment and Plan: Follow-up iron studies, ferritin, transferrin, B12, folate all within normal limit EPO per livestock farmers (7) Swelling of both lower extremities: ?Code(s): M79.89 - Other specified soft tissue disorders ?Status:?Acute ?Assessment and Plan: Likely due to EPO.? Follow-up bilateral lower extremity Dopplers no DVT (8) Vitamin D deficiency: Consult PT OT social worker school for evaluation and assisting placement, they consider patient can go home with self-care Subjective Date/time seen: 03/08/23 08:25 Interval history: I saw exam patient today. Patient feels better, short of breath resolves after receiving
[2023-03-08] MEDS: POTASSIUM CHLORIDE 10 MEQ ER TABLET 20 MEQ PO (08:27)
[2023-03-08 09:13] LABS: Basophils Percent Auto 0.5 % (0.2-1.2); Eosinophils Absolute Auto 0.2 K/mm3 (0-0.3); Eosinophils Percent Auto 2.7 % (0-4.4); Hematocrit 34.5 % (37.0-47.0); Hemoglobin 10.9 g/dL (12.0-15.0); Immature Granulocyte Absolute 0.02 K/mm3 (0.00-0.031); Immature Granulocyte Percent A 0.3 % (0-0.5); Immature Platelet Fraction Pct 8.5 % (0.9-11.2); Lymphocytes Absolute Auto 1.78 K/mm3 (0.9-3.2); Lymphocytes Percent Auto 29.7 % (18.3-44.2); Mean Corpuscular HGB Conc 31.6 g/dl (32-36); Mean Corpuscular Hemoglobin 29.8 pg (26-34); Mean Corpuscular Volume 94.3 fl (80-100); Mean Platelet Volume 12.9 fl (7.4-10.4); Monocytes Absolute Auto 0.8 K/mm3 (0.1-0.6); Monocytes Percent Auto 12.7 % (2.6-8.5); Neutrophils Absolute Auto 3.3 K/mm3 (1.3-6.7); Neutrophils Percent Auto 54.1 % (45.5-73.1); Platelet Count Result 159 k/mm3 (150-375); Red Blood Count 3.66 M/mm3 (4.2-5.4); Red Cell Distribution Width 15.3 % (11.5-14.5)
[2023-03-08 09:19] LABS: Anion Gap 3 mmol/L (8-16); Blood Urea Nitrogen 38 mg/dL (7-17); Calcium 8.6 mg/dL (8.4-10.2); Carbon Dioxide 29 mmol/L (22-30); Chloride 100 mmol/L (98-107); Estimated CRCL calculation 29 ml/min; Estimated Glomerular Filt Rate 25; Glucose 327 mg/dL (65-110); Potassium 4.5 mmol/L (3.4-5.0); Sodium 132 mmol/L (137-145)
--- NOTE | 2023-03-08 11:14 | PM.IMPN ---
Subjective Date/time seen: 03/08/23 11:14 Objective Data Vital Signs Vital Signs: Vital Signs - 24 hr 03/07/23 14:50 03/07/23 14:55 03/07/23 19:39 Temperature 97.9 F 97 F L Pulse Rate 61 59 L Respiratory Rate 18 18 Blood Pressure 134/57 L 159/61 H Pulse Oximetry 98 97 Oxygen Delivery Room Air 03/07/23 21:30 03/07/23 21:30 03/07/23 20:00 Temperature Pulse Rate 66 66 60 Respiratory Rate Blood Pressure Pulse Oximetry Oxygen Delivery 03/08/23 00:00 03/08/23 04:00 03/08/23 04:41 Temperature 97 F L Pulse Rate 62 74 61 Respiratory Rate 16 Blood Pressure 147/39 H Pulse Oximetry 97 Oxygen Delivery 03/08/23 08:23 03/08/23 08:23 03/08/23 08:00 Temperature Pulse Rate 59 L 60 Respiratory Rate Blood Pressure Pulse Oximetry Oxygen Delivery Room Air Intake/Output Intake/Output: Intake & Output 03/05/23 03/06/23 03/07/23 03/08/23 23:59 23:59 23:59 23:59 Intake Total 3080 660 Output Total 1550 550 Balance 1530 110 Meds/Results Medications: Active Medications Generic Name Dose Route Start Last Admin Trade Name Freq PRN Reason Stop Dose Admin Albuterol 2 puff 03/07/23 06:52 Albuterol Sulfate (*Sp) Aerosol 1 Puff INHALATION QIDRT PRN shortness of breath or wheezing Aspirin 81 mg 03/07/23 08:00 03/08/23 08:21 Aspirin 81 Mg Chewable Tablet PO 81 mg DAILY@0800 SARAI Administration Bumetanide 2 mg 03/07/23 09:00 03/08/23 08:21 Bumetanide 1 Mg Tablet PO 2 mg BID SARAI Administration Clopidogrel Bisulfate 75 mg 03/07/23 09:00 03/08/23 08:22 Clopidogrel Bisulfate 75 Mg Tablet PO 75 mg DAILY SARAI Administration Dextrose 12.5 gm 03/07/23 03:18 Dextrose 50% 25 Gm/50 Ml Syringe IV PUSH PRN PRN Hypoglycemia Protocol Diclofenac Sodium 1 applic 03/07/23 06:52 03/07/23 21:29 Diclofenac Sodium 1% 100 Gm Gel (*Bkc) TOPICAL 1 applic PRN PRN Administration arthritis Ezetimibe 10 mg 03/07/23 09:00 03/08/23 08:21 Ezetimibe 10 Mg Tablet PO 10 mg DAILY SARAI Administration Ergocalciferol 50,000 units 03/11/23 09:00 Ergocalciferol 50,000 Units Capsule PO WEEKLY SARAI Famotidine 40 mg 03/07/23 09:00 03/08/23 08:21 Famotidine 20 Mg Tablet PO 40 mg DAILY SARAI Administration Fluticasone Propionate 1 spray 03/07/23 09:00 03/08/23 08:24 Fluticasone Propionate 0.05% Na Spr 16 Gm Btl (*Bkc) NASAL 1 spray DAILY SARAI Administration Glucagon 1 mg 03/07/23 03:18 Glucagon For Inj 1 Mg Vial IM PRN PRN Hypoglycemia Protocol Glucose 15 gm 03/07/23 03:18 Glucose Oral Gel 15 Gm Of Glucse In 37.5 Gm Tube PO PRN PRN Hypoglycemia Protocol Hydralazine HCl 10 mg 03/07/23 01:29 Hydralazine Hcl 20 Mg/Ml Vial IV PUSH Q4H PRN Blood Pressure - High Dextrose 1,000 mls @ 100 mls/hr 03/07/23 03:18 Dextrose 5% 1,000 Ml IVPB PRN PRN Hypoglycemia Protocol Insulin Aspart 4 - 8 units 03/07/23 08:00 03/08/23 08:25 Insulin Aspart (*Bkc) 100 Units/Ml SUB-Q 5 units TIDWM SARAI Administration Protocol Insulin Aspart 15 units 03/07/23 07:28 03/08/23 08:25 Insulin Aspart (*Bkc) 100 Units/Ml SUB-Q 15 units TIDAC SARAI Administration Insulin Glargine 50 units 03/07/23 21:00 03/07/23 21:30 Insulin Glargine (*Bkc) 100 Units/Ml SUB-Q 50 units HS SARAI Administration Irbesartan 150 mg 03/07/23 09:00 03/08/23 08:21 Irbesartan 150 Mg Tablet PO 150 mg DAILY SARAI Administration Ketorolac Tromethamine 1 drop 03/07/23 09:00 03/08/23 08:24 Ketorolac 0.5% Op Soln 5 Ml Bottle RIGHT EYE 1 drop TID SAARI Administration Levothyroxine Sodium 50 mcg 03/07/23 07:10 03/08/23 04:52 Levothyroxine Sodium 50 Mcg Tablet PO 50 mcg DAILY@0630 [facility] Administration Metolazone 5 mg 03/09/23 09:00 Metolazone 5 Mg Tablet PO MoFr@0900 [facility] Metoprolol T
--- NOTE | 2023-03-08 11:15 | PM.DS ---
DS: Admitting Diagnosis Discharge Date today Admitting Diagnosis (1) CHF (congestive heart failure): ?Code(s): I50.9 - Heart failure, unspecified ?Status:?Acute (2) Iron deficiency anemia: ?Code(s): D50.9 - Iron deficiency anemia, unspecified ?Status:?Acute (3) Swelling of both lower extremities: ?Code(s): M79.89 - Other specified soft tissue disorders ?Status:?Acute (4) Type 2 diabetes mellitus with hyperglycemia: ?Code(s): E11.65 - Type 2 diabetes mellitus with hyperglycemia ?Status:?Acute (5) Anemia: ?Code(s): D64.9 - Anemia, unspecified ?Status:?Acute (6) CHF exacerbation: ?Qualifiers: ?Heart failure type:?diastolic? Qualified Code(s):?I50.33 - Acute on chronic diastolic (congestive) heart failure ?Code(s): I50.9 - Heart failure, unspecified ?Status:?Acute DS: Discharge Diagnosis Discharge Diagnosis (1) CHF (congestive heart failure): Code(s): I50.9 - Heart failure, unspecified Status: Acute (2) Iron deficiency anemia: Code(s): D50.9 - Iron deficiency anemia, unspecified Status: Acute (3) Swelling of both lower extremities: Code(s): M79.89 - Other specified soft tissue disorders Status: Acute (4) Type 2 diabetes mellitus with hyperglycemia: Code(s): E11.65 - Type 2 diabetes mellitus with hyperglycemia Status: Acute (5) Anemia: Code(s): D64.9 - Anemia, unspecified Status: Acute (6) CHF exacerbation: Qualifiers: Heart failure type: diastolic Qualified Code(s): I50.33 - Acute on chronic diastolic (congestive) heart failure Code(s): I50.9 - Heart failure, unspecified Status: Acute DS: Summary Hospital Course Hospital Course: Per H&P, juana Calles is a 72-year-old female with history of chronic kidney disease, hypertension, grade 2 diastolic dysfunction, type 2 diabetes mellitus, CVA, untreated FILI, CAD s/p CABG 1 year ago who presented to the emergency department with complaints of shortness of breath.? Patient states that for about 2 months she has had progressive dyspnea and has noticed swelling ?all over. She has noticed weight gain.? She mentions that she brought this weight gain up to her therapist, however states they did not inform her that it could be related to her heart.? She endorses dyspnea on lesser and lesser exertion as well as orthopnea.? She endorses dry cough.? She denies chest pain.? States that she has been compliant with her medications and takes Bumex twice daily.? Her social media marketer is Dr. Sanchez.? She believes that since having her CABG 1 year ago, she has had progressive decline become more weak, more dependent on assistance of her partner.? Reports she had an episode of diarrhea on route no loose stool since that time.? Denies dysuria.? On presentation to the ED, her vital signs were stable, she was afebrile, CBC unremarkable, BUN 30, creatinine 1.8, BNP 1280, CXR with clear lungs.? At the time of my evaluation, she is feeling somewhat improved.? Reports frequent urinations and starting IV Lasix.? Believes that her lower extremity swelling is improving. The following medical issues have been addressed in hospital (1) CHF (congestive heart failure): ?Code(s): I50.9 - Heart failure, unspecified ?Status:?Acute ?Assessment and Plan: Possible acute on chronic diastolic heart failure chief uncontrolled hypertension Patient has shortness of breath, bilateral lower extremity edema .? -Continue b.i.d. Bumex at this time.? Medication managements per Nephrology and primary care doctor -Can increase as tolerated.? -40mg IV Lasix once -edema and tender of lower extremities, follow venous Doppler bilateral lower extremities Patent bilateral lower extremity veins. No evidence of deep venous thrombosis.02/04 Repeat echocardiogram March 07 shows normal EF, diastolic dysfunction was unable to be evaluated (2) Chronic ki
[2023-03-08 12:03] LABS: Glucose Point of Care 231 mg/dl (65-105)
[2023-03-08 14:21] LABS: Glucose Point of Care 254 mg/dl (65-105)
[2023-03-08 14:21] LABS: Glucose Point of Care 254 mg/dl (65-105)
[2023-03-11 11:36] LABS: Vitamin D 1,25 (OH)2 Total 37 pg/mL (18-72); Vitamin D2 1,25 (OH)2 24 pg/mL; Vitamin D3 1,25 (OH)2 13 pg/mL
== END 2023-03-08 15:25 | disposition home or self-care (01) | DRG 291 ==
LOC: ANHED 20:38 → ANH2MED 22:05
PROVIDERS: Emergency Medicine; Admitting Provider Internal Medicine; Emergency Provider Physician Assistant; Visit Provider Hospitalist
DX: I13.0 Hypertensive heart and chronic kidney disease with heart failure and stage 1 through stage 4 chronic kidney disease, or unspecified chronic kidney disease (principal); I50.33 Acute on chronic diastolic (congestive) heart failure; Q79.60 Ehlers-Danlos syndrome, unspecified; I16.1 Hypertensive emergency; I69.354 Hemiplegia and hemiparesis following cerebral infarction affecting left non-dominant side; Z68.43 Body mass index [BMI] 50.0-59.9, adult; T45.8X5A Adverse effect of other primarily systemic and hematological agents, initial encounter; D63.1 Anemia in chronic kidney disease; E11.22 Type 2 diabetes mellitus with diabetic chronic kidney disease; E11.65 Type 2 diabetes mellitus with hyperglycemia; E66.01 Morbid (severe) obesity due to excess calories; E55.9 Vitamin D deficiency, unspecified; E78.5 Hyperlipidemia, unspecified; F41.9 Anxiety disorder, unspecified; G47.33 Obstructive sleep apnea (adult) (pediatric); I25.10 Atherosclerotic heart disease of native coronary artery without angina pectoris; K21.9 Gastro-esophageal reflux disease without esophagitis; N18.30 Chronic kidney disease, stage 3 unspecified; Z79.4 Long term (current) use of insulin; Z96.651 Presence of right artificial knee joint; Z98.49 Cataract extraction status, unspecified eye; Z90.89 Acquired absence of other organs; Z90.710 Acquired absence of both cervix and uterus; Z95.1 Presence of aortocoronary bypass graft; Z79.82 Long term (current) use of aspirin; Z79.02 Long term (current) use of antithrombotics/antiplatelets; Z20.822 Contact with and (suspected) exposure to COVID-19
CPT/HCPCS: 36415; 70450; 71046; 80048; 80053; 81001; 82010; 82306; 82607; 82652; 82728; 82746; 82948; 83036; 83540; 83550; 83690; 83880; 84466; 84484; 85025; 85055; 85380; 85610; 85730; 87636; 93005; 93308; 93970; 97161; 97165; 97530; 97535; 99285; A9270; C8924; J1815; J1940; Q9957

== ENCOUNTER 2023-03-28 17:03 | Emergency (ER) | payer MEDICARE, SELFPAY ==
--- NOTE | 2023-03-28 17:14 | ED.URI ---
HPI - URI/Sore Throat General Chief Complaint: Upper Respiratory Infection Stated Complaint: Sore Throat Time Seen by Provider: 03/28/23 17:15 Source: patient Mode of arrival: ambulatory Limitations: no limitations History of Present Illness HPI Narrative: Patient is a 72-year-old female who presents with 1 day of left ear pain, congestion with drainage, sinus pressure, sore throat and burning with urination. Patient states the upper respiratory stuff is allergy related but has not taken any medication. Denies any blood in urine, low back pain, fever, chills, nausea, vomiting, diarrhea. Related Data Home Medications Medication Instructions Recorded Confirmed clopidogrel 75 mg tablet 75 mg PO DAILY 02/18/21 03/28/23 metoprolol tartrate 37.5 mg tablet 37.5 mg PO Q12H 02/18/21 03/28/23 potassium chloride 10 mEq 20 meq PO BID 02/18/21 03/28/23 tablet,extended release (K-Tab) insulin glargine 100 unit/mL (3 50 unit subcut HS 04/15/21 03/28/23 mL) subcutaneous pen (Lantus Solostar U-100 Insulin) pantoprazole 40 mg tablet,delayed 40 mg PO HS 04/15/21 03/28/23 release bumetanide 2 mg tablet 2 mg PO BID 04/07/22 03/28/23 ergocalciferol (vitamin D2) 1,250 1,250 mcg PO WEEKLY 04/07/22 03/28/23 mcg (50,000 unit) capsule pregabalin 75 mg capsule 75 mg PO TID 04/07/22 03/28/23 sennosides 8.6 mg tablet (senna) 8.6 mg PO PRN PRN Constipation 04/07/22 03/28/23 sucralfate 1 gram tablet (Carafate) 1 g PO QID 04/07/22 03/28/23 simvastatin 20 mg tablet 40 mg PO DAILY 12/13/22 03/28/23 ezetimibe 10 mg tablet 10 mg PO DAILY 01/15/23 03/28/23 famotidine 40 mg tablet 40 mg PO DAILY 01/15/23 03/28/23 insulin lispro 100 unit/mL 15 unit subcut TIDWMEAL 01/15/23 03/28/23 subcutaneous pen (Humalog KwikPen (U-100) Insulin) ketorolac 0.5 % eye drops 1 drp RIGHT EYE TID 01/15/23 03/28/23 diclofenac sodium 1 % topical gel 1 ea topical PRN PRN arthritis 03/06/23 03/28/23 irbesartan 150 mg tablet 150 mg PO DAILY 03/06/23 03/28/23 Allergies Allergy/AdvReac Type Severity Reaction Status Date / Time [id number]-[id number]-CtA Reductase Allergy Mild Cramping Verified 01/31/23 13:59 Inhibitor of the [Smjctwk-Nyd-Brl Reductase Muscles Inhibitor] Penicillins Allergy Itching Verified 01/31/23 13:59 Review of Systems Review of Systems: All systems reviewed & are unremarkable except as noted in HPI and below Constitutional: Constitutional: Denies body ache(s), Denies chills, Denies fatigue, Denies fever(s), Denies headache(s), Denies malaise and Denies weakness Eyes: Eyes: Denies blurry vision, Denies itchy eyes and Denies loss of vision ENT: Reports otalgia, Denies headache(s), Reports nasal congestion, Reports sinus pain, Reports sinus pressure and Reports sore throat Cardiovascular: Cardiovascular: Denies chest pain, Denies irregular heart rhythm and Denies dyspnea Respiratory: Respiratory: Denies cough and Denies dyspnea Gastrointestinal: Gastrointestinal: Denies abdominal pain, Denies diarrhea, Denies nausea and Denies vomiting Musculoskeletal: Musculoskeletal: Denies back pain, Denies myalgias and Denies arthralgias Integumentary/Breasts: Skin/Breast: Denies pruritus and Denies rash Neurologic: Denies headache(s), Denies loss of vision and Denies weakness Psychiatric: Psychiatric: Reports no additional psychiatric complaints Endocrine: Endocrine: Denies fatigue Allergic/Immunologic: Allergic/Immunologic: Denies itchy eyes PMFSH Past Medical History Medical History Anxiety Chronic anemia Chronic kidney disease, stage 3 Baseline creatinine appears to be around 1.50. Dyslipidemia Essential hypertension Gastroesophageal reflux disease Grade II diastolic dysfunction Ejection fraction at that time was 60 to 65%. History of cerebrovascular accident (01/2015) Residual left-sided paresthesias. Insulin dependent type 2 diabetes mellitus Complicated by diabetic retinop
[2023-03-28 17:55] VITALS: BP 154/50; PULSE 63; RESP 16; TEMP 36.1; O2SAT 100
== END 2023-03-28 18:56 | disposition home or self-care (01) ==
PROVIDERS: Emergency Provider Nurse Practitioner Family; PCP Physician Assistant
DX: H66.002 Acute suppurative otitis media without spontaneous rupture of ear drum, left ear (principal); N18.30 Chronic kidney disease, stage 3 unspecified; I12.9 Hypertensive chronic kidney disease with stage 1 through stage 4 chronic kidney disease, or unspecified chronic kidney disease; K21.9 Gastro-esophageal reflux disease without esophagitis; E78.5 Hyperlipidemia, unspecified; E11.22 Type 2 diabetes mellitus with diabetic chronic kidney disease; E66.01 Morbid (severe) obesity due to excess calories; Z68.43 Body mass index [BMI] 50.0-59.9, adult; G47.33 Obstructive sleep apnea (adult) (pediatric); Z20.822 Contact with and (suspected) exposure to COVID-19
CPT/HCPCS: 81003; 87426; 99213; C9803; G0463

== ENCOUNTER 2023-05-31 11:00 | Outpatient (RCR) | payer MEDICARE, SELFPAY ==
[2023-04-10 10:57] VITALS: BMI 51.8
[2023-04-10 14:05] VITALS: BMI 51.8
[2023-05-31 10:53] VITALS: BMI 53.3
[2023-05-31 10:54] VITALS: BMI 53.3
== END 2023-06-18 09:35 | disposition home or self-care (01) ==
LOC: ANHDMC 11:00
PROVIDERS: PCP Physician Assistant; Visit Provider Internal Medicine
DX: E11.65 Type 2 diabetes mellitus with hyperglycemia (principal); Z71.89 Other specified counseling; Z71.3 Dietary counseling and surveillance
CPT/HCPCS: 97802; G0108

== ENCOUNTER 2023-06-06 16:37 | Outpatient (CLI) | payer MEDICARE, SELFPAY ==
[2023-06-06 17:53] LABS: Hematocrit 34.9 % (37.0-47.0); Hemoglobin 11.1 g/dL (12.0-15.0); Mean Corpuscular HGB Conc 31.8 g/dl (32-36); Mean Corpuscular Volume 94.3 fl (80-100); Mean Platelet Volume 12.9 fl (7.4-10.4); Platelet Count Result 197 k/mm3 (150-375); Red Cell Distribution Width 16.1 % (11.5-14.5)
[2023-06-06 18:01] LABS: Creatinine Urine 65.5 mg/dL; Total Protein Urine Random 44 mg/dL; Ur Ttl Prot Creatinine Ratio 0.67 mg/mg (0-0.20)
[2023-06-06 18:13] LABS: Albumin Level 3.9 g/dL (3.5-5.1); Anion Gap 10 mmol/L (8-16); Blood Urea Nitrogen 50 mg/dL (7-17); Calcium 9.2 mg/dL (8.4-10.2); Carbon Dioxide 28 mmol/L (22-30); Chloride 101 mmol/L (98-107); Estimated Glomerular Filt Rate 26; Glucose 305 mg/dL (65-110); Phosphorus 4.8 mg/dL (2.5-4.5); Potassium 4.1 mmol/L (3.4-5.0); Sodium 139 mmol/L (137-145)
[2023-06-06 18:23] LABS: Parathyroid Intact 51.8 pg/mL (7.5-53.5)
== END 2023-06-06 16:38 | disposition home or self-care (01) ==
PROVIDERS: PCP Physician Assistant; Visit Provider Internal Medicine Nephrology
DX: N18.32 Chronic kidney disease, stage 3b (principal); E11.65 Type 2 diabetes mellitus with hyperglycemia; E11.22 Type 2 diabetes mellitus with diabetic chronic kidney disease; R53.83 Other fatigue
CPT/HCPCS: 36415; 80069; 82570; 83970; 84156; 84443; 85027

== ENCOUNTER 2023-06-27 08:21 | Outpatient (CLI) | payer MEDICARE, SELFPAY ==
[2023-07-17 16:30] VITALS: BMI 47.9
--- NOTE | 2023-07-17 16:30 | WPDSLEEPSTUD ---
Sleep Study Date of Study: 06/27/23 Ordering Provider: IRAIDA Joshi Interpreting Physician: Mirtha Herrera DO Sleep Study Type: Split Polysomnogram Height: 1.73 m Weight: 142.882 kg Body Mass Index: 47.9 Neck Circumference (inches): 17 Gerlach: 22 Reason for Sleep Study Difficulty falling and staying asleep. Sleep History The patient is a 73-year-old female that had a sleep study ordered by the pulmonary group for evaluation of sleep apnea. The patient denies awakening from sleep short of breath. She occasionally awakens at night with heartburn, belching or cough. She occasionally snores but it is never loud enough that others complain. She denies having trouble sleeping when she has a cold. She denies waking up gasping for air throughout the night. She frequently has breathing problems at night observed by herself or others. She denies sweating excessively at night. She denies having heart palpitations or irregular heartbeats during the night. She occasionally falls asleep during the day but never while driving. She denies sleep paralysis, cataplexy and hypnagogic / hypnopompic hallucinations. She denies having trouble at school or work due to sleepiness. She denies feeling afraid of going to sleep. She denies having nightmares. She denies remembering her dreams. She denies having thoughts racing through her mind. She occasionally feels sad or depressed. She frequently has anxiety. She denies having muscular tension. She denies noticing parts of her body jerk. She denies kicking during the night. She occasionally has crawling and aching feelings in her legs and frequently has leg pain during the night. She denies grinding her teeth during sleep and denies awakening with morning jaw pain. She is frequently bothered by pain during the day and occasionally awakened by pain during the night. She occasionally wakes up feeling stiff in the morning. She occasionally wakes up with sore or achy muscles. She occasionally wakes up with pain in the neck, spine and other joints. She goes to bed between 3-5 a.m. on both weekdays and weekends. It takes her a long time to fall asleep. She wakes up 3-4 times throughout the night and will play music until she is able to fall back asleep. She wakes up at 7:00 a.m. on both weekdays and weekends. She typically gets 5 hours of sleep per night. She will stay in bed until 11:00 a.m.. She currently lives with 3 other people. She denies consuming any caffeinated beverages within 2 hours of bedtime. She denies engaging in physical exercise before bedtime. She will occasionally watch television before falling asleep. She will take naps in the afternoon or the evening and they are refreshing. She denies consuming caffeinated beverages throughout the day. She denies tobacco, alcohol and recreational drug use. [facility] Past Medical History Medical History Anxiety Chronic anemia Chronic kidney disease, stage 3 Baseline creatinine appears to be around 1.50. Dyslipidemia Essential hypertension Gastroesophageal reflux disease Grade II diastolic dysfunction Ejection fraction at that time was 60 to 65%. History of cerebrovascular accident (01/2015) Residual left-sided paresthesias. Insulin dependent type 2 diabetes mellitus Complicated by diabetic retinopathy, neuropathy, and nephropathy. Hemoglobin A1c was 8.4% in September 2020. Morbid obesity Obstructive sleep apnea (~04/2020) Mild FILI noted on home sleep study. Severe pulmonary arterial systolic hypertension (~01/2020) No obvious etiology has been found as of yet. Followed by Dr. Anastasiya Johnson. [place] (~1999) Surgical History Surgical History History of 2 sections History of arthroplasty of right knee History of cataract extraction History of dilation and curettage History of inguinal hernia
== END 2023-06-28 07:40 | disposition home or self-care (01) ==
LOC: ANHCSM 08:22
PROVIDERS: PCP Physician Assistant; Visit Provider Physician Assistant
DX: G47.10 Hypersomnia, unspecified (principal); G47.33 Obstructive sleep apnea (adult) (pediatric); G47.00 Insomnia, unspecified
CPT/HCPCS: 95811

== ENCOUNTER 2023-08-06 10:01 | Outpatient (CLI) | payer MEDICARE, SELFPAY ==
[2023-08-06 16:52] LABS: Albumin Level 3.7 g/dL (3.5-5.1); Anion Gap 6 mmol/L (8-16); Blood Urea Nitrogen 39 mg/dL (7-17); Calcium 9.2 mg/dL (8.4-10.2); Carbon Dioxide 31 mmol/L (22-30); Chloride 103 mmol/L (98-107); Estimated Glomerular Filt Rate 33; Glucose 196 mg/dL (65-110); Phosphorus 3.5 mg/dL (2.5-4.5); Potassium 4.5 mmol/L (3.4-5.0); Sodium 140 mmol/L (137-145); Total Protein Urine Random 107 mg/dL; Ur Ttl Prot Creatinine Ratio 0.85 mg/mg (0-0.20)
== END 2023-08-06 10:02 | disposition home or self-care (01) ==
LOC: ANHWCLAB 10:02
PROVIDERS: PCP Physician Assistant; Visit Provider Internal Medicine Nephrology
DX: N18.32 Chronic kidney disease, stage 3b (principal)
CPT/HCPCS: 36415; 80069; 82570; 84156

== ENCOUNTER 2023-08-14 13:05 | Emergency (ER) | payer MEDICARE, SELFPAY ==
[2023-08-14 13:16] VITALS: BP 187/71; PULSE 87; RESP 18; TEMP 36.4; O2SAT 100
--- NOTE | 2023-08-14 13:21 | ED.EXTPRO ---
HPI - Extremity Problem General Chief complaint: Extremity Problem,Nontraumatic Stated complaint: right leg pain Time Seen by Provider: 08/14/23 13:45 Source: patient and family Mode of arrival: ambulatory Limitations: no limitations History of Present Illness HPI Narrative: Katlin is a 73-year-old female patient presenting to the clinic today with complaints of right lower leg pain and swelling. She reports symptoms started yesterday with burning and stabbing in the right calf. Is currently taking Plavix and aspirin-states she takes her medications as prescribed. History of hyperlipidemia, hypertension, diabetes, renal failure, CVA, Moses-Danlos syndrome, congestive heart failure, and chronic anemia. Went to the [facility] today to get a shot for her anemia- reports she has a blood cancer and has seen provider Zulema Poon in the past. She denies any chest pain or shortness of breath. Related Data Home Medications Medication Instructions Recorded Confirmed clopidogrel 75 mg tablet 75 mg PO DAILY 02/18/21 08/14/23 metoprolol tartrate 37.5 mg tablet 37.5 mg PO Q12H 02/18/21 08/14/23 potassium chloride 10 mEq 20 meq PO BID 02/18/21 08/14/23 tablet,extended release (K-Tab) pantoprazole 40 mg tablet,delayed 40 mg PO HS 04/15/21 08/14/23 release bumetanide 2 mg tablet 2 mg PO BID 04/07/22 08/14/23 ergocalciferol (vitamin D2) 1,250 1,250 mcg PO WEEKLY 04/07/22 08/14/23 mcg (50,000 unit) capsule pregabalin 75 mg capsule 75 mg PO TID 04/07/22 08/14/23 sucralfate 1 gram tablet (Carafate) 1 g PO QID 04/07/22 08/14/23 simvastatin 20 mg tablet 40 mg PO DAILY 12/13/22 08/14/23 ezetimibe 10 mg tablet 10 mg PO DAILY 01/15/23 08/14/23 famotidine 40 mg tablet 40 mg PO DAILY 01/15/23 08/14/23 ketorolac 0.5 % eye drops 1 drp RIGHT EYE TID 01/15/23 08/14/23 diclofenac sodium 1 % topical gel 1 ea topical PRN PRN arthritis 03/06/23 08/14/23 irbesartan 150 mg tablet 150 mg PO DAILY 03/06/23 08/14/23 prednisolone acetate 1 % eye 1 drp RIGHT EYE TID 04/30/23 08/14/23 drops,suspension Allergies Allergy/AdvReac Type Severity Reaction Status Date / Time Uwkhhxo-BQB-YyN Reductase Allergy Mild Cramping Verified 07/18/23 11:32 Inhibitor of the [Vhsujbu-Urx-Gts Reductase Muscles Inhibitor] Penicillins Allergy Itching Verified 07/18/23 11:32 Review of Systems Review of Systems: Pertinent positives per HPI. Patient denies any fever, chills, rash, headache, visual changes, dizziness, cough, runny nose, sore throat, shortness of breath, chest pain, palpitations, nausea, vomiting, diarrhea, constipation, abdominal pain, or any urinary issues. [facility] Past Medical History Medical History Anxiety Chronic anemia Chronic kidney disease, stage 3 Baseline creatinine appears to be around 1.50. Dyslipidemia Essential hypertension Gastroesophageal reflux disease Grade II diastolic dysfunction Ejection fraction at that time was 60 to 65%. History of cerebrovascular accident (01/2015) Residual left-sided paresthesias. Insulin dependent type 2 diabetes mellitus Complicated by diabetic retinopathy, neuropathy, and nephropathy. Hemoglobin A1c was 8.4% in September 2020. Morbid obesity Obstructive sleep apnea (~04/2020) Mild FILI noted on home sleep study. Severe pulmonary arterial systolic hypertension (~01/2020) No obvious etiology has been found as of yet. Followed by Dr. Anastasiya Johnson. [place] (~1999) Surgical History Surgical History History of 2 sections History of arthroplasty of right knee History of cataract extraction History of dilation and curettage History of inguinal hernia repair History of partial thyroidectomy History of tonsillectomy and adenoidectomy History of total hysterectomy Family History Family History Mother
== END 2023-08-14 13:55 | disposition short-term general hospital (02) ==
LOC: EXPCOLL 13:10
PROVIDERS: Emergency Provider Nurse Practitioner Family; PCP Physician Assistant
DX: M79.661 Pain in right lower leg (principal); R22.41 Localized swelling, mass and lump, right lower limb; I12.9 Hypertensive chronic kidney disease with stage 1 through stage 4 chronic kidney disease, or unspecified chronic kidney disease; E11.22 Type 2 diabetes mellitus with diabetic chronic kidney disease; N18.30 Chronic kidney disease, stage 3 unspecified; Z79.4 Long term (current) use of insulin; D64.9 Anemia, unspecified; E78.5 Hyperlipidemia, unspecified; K21.9 Gastro-esophageal reflux disease without esophagitis; E66.01 Morbid (severe) obesity due to excess calories; Z68.43 Body mass index [BMI] 50.0-59.9, adult; I69.354 Hemiplegia and hemiparesis following cerebral infarction affecting left non-dominant side; I27.21 Secondary pulmonary arterial hypertension; E11.21 Type 2 diabetes mellitus with diabetic nephropathy; E11.40 Type 2 diabetes mellitus with diabetic neuropathy, unspecified; E11.319 Type 2 diabetes mellitus with unspecified diabetic retinopathy without macular edema; Z90.89 Acquired absence of other organs
CPT/HCPCS: 99212; G0463

== ENCOUNTER 2023-08-14 15:02 | Emergency (ER) | payer MEDICARE, SELFPAY ==
--- NOTE | ~2023-08-14 | XR_ITS ---
Right Knee Technique: AP, lateral, and sunrise views were obtained. Clinical History: Pain Findings: No fracture or dislocation is seen. Osseous alignment is anatomic. There is moderate spurri ng at the medial joint line and patella. Possible osteochondral lesion at the central aspect of the m edial femoral condyle. Chondrocalcinosis of the menisci noted. No joint effusion is seen. Impression: Tricompartmental degenerative change, worse in the medial and patellofemoral compartment. Possible osteochondral lesion of the central aspect of the medial femoral condyle. Consider MR to fur ther evaluate, as indicated. Reviewed, dictated and finalized at location . IAL EFFECTS MAKEUP ARTIST Impression: Tricompartmental degenerative change, worse in the medial and patellofemoral co mpartment. Possible osteochondral lesion of the central aspect of the medial femoral condy le. Consider MR to further evaluate, as indicated.
--- NOTE | ~2023-08-14 | US_ITS ---
EXAMINATION: US venous doppler LE RT DATE: 08/14/2023 22:37 INDICATION: Right lower limb pain. TECHNIQUE: Grayscale ultrasound images without and with compression and Doppler ultrasound images of the right lower extremity veins were obtained. COMPARISON: Ultrasound 03/07/2023 FINDINGS: The visualized portions of right common femoral vein, profunda (deep) femoral vein, popliteal vein, p eroneal veins, posterior tibial veins, and greater saphenous vein outflow are patent. The femoral vei n is not well visualized. IMPRESSION: 1. No deep venous thrombosis. Reviewed, dictated and finalized at location E. BI DEVELOPER
--- NOTE | ~2023-08-14 | XR_ITS ---
AP view of the pelvis and AP and lateral views of the right hip Clinical history: Pain Findings: No acute fracture or dislocation is seen. Osseous alignment is anatomic. Bilateral hip and SI joint spaces are preserved. Soft tissues are unremarkable. Impression: No significant abnormality is seen. Reviewed, dictated and finalized at [facility]. UTER EQUIPMENT INSTALLER Impression: No significant abnormality is seen.
[2023-08-14 15:05] VITALS: BP 147/110; PULSE 87; RESP 20; TEMP 36.3; O2SAT 100
[2023-08-14 23:16] VITALS: O2SAT 100
[2023-08-14 23:17] VITALS: BP 183/62; PULSE 77; RESP 20; O2SAT 100
[2023-08-14 23:30] VITALS: O2SAT 100
[2023-08-14 23:45] VITALS: O2SAT 100
[2023-08-15] VITALS (9 sets, daily range): BP systolic 155–173; BP diastolic 50–54; PULSE 78–80; RESP 14–20; O2SAT 97–100
[2023-08-15] MEDS: CYCLOBENZAPRINE HCL 5 MG TABLET PO (00:12)
[2023-08-15] MEDS: PREGABALIN (*CRX) 75 MG CAPSULE PO (00:12)
[2023-08-15] MEDS: ACETAMINOPHEN 500 MG TABLET 1000 MG PO (00:12)
--- NOTE | 2023-08-15 00:33 | PC.NURSE ---
Assumed care of pt. Report from VINCENZO Bynum. Pt requesting food/juice. OK per ERP.
--- NOTE | 2023-08-15 01:11 | ED.EXTPRO ---
HPI - Extremity Problem General Chief complaint: Extremity Problem,Nontraumatic Stated complaint: right leg pain and swelling Time Seen by Provider: 08/14/23 23:22 Source: patient Mode of arrival: ambulatory Limitations: no limitations History of Present Illness HPI Narrative: Patient is a 73-year-old female, with past medical history of CKD, diabetes, chronic lymphedema of lower extremities, CHF, who presents to ED with report of pain in her right lower leg. Patient reports having chronic swelling in her lower extremities related to her lymphedema. She is seen in the lymphedema clinic every 3 days and has her legs wrapped. She began having her legs wrapped with a different wrap yesterday and began having pain in her R lower extremity afterwards, described as a burning and shooting pain in her medial thigh and posterior knee/thigh. She was seen in urgent care today and sent here for further evaluation and to rule out DVT. Patient denies previous history of blood clots. She is not currently on any anticoagulant. She does take an aspirin 81 mg and Plavix due to history of previous CABG. Denies chest pain or shortness breath. Denies numbness or tingling. Denies fevers, rash, redness of leg. She does note mild increased swelling of her legs, but states she is scheduled to be seen in the lymphedema clinic tomorrow. Related Data Home Medications Medication Instructions Recorded Confirmed clopidogrel 75 mg tablet 75 mg PO DAILY 02/18/21 08/14/23 metoprolol tartrate 37.5 mg tablet 37.5 mg PO Q12H 02/18/21 08/14/23 potassium chloride 10 mEq 20 meq PO BID 02/18/21 08/14/23 tablet,extended release (K-Tab) pantoprazole 40 mg tablet,delayed 40 mg PO HS 04/15/21 08/14/23 release bumetanide 2 mg tablet 2 mg PO BID 04/07/22 08/14/23 ergocalciferol (vitamin D2) 1,250 1,250 mcg PO WEEKLY 04/07/22 08/14/23 mcg (50,000 unit) capsule pregabalin 75 mg capsule 75 mg PO TID 04/07/22 08/14/23 sucralfate 1 gram tablet (Carafate) 1 g PO QID 04/07/22 08/14/23 simvastatin 20 mg tablet 40 mg PO DAILY 12/13/22 08/14/23 ezetimibe 10 mg tablet 10 mg PO DAILY 01/15/23 08/14/23 famotidine 40 mg tablet 40 mg PO DAILY 01/15/23 08/14/23 ketorolac 0.5 % eye drops 1 drp RIGHT EYE TID 01/15/23 08/14/23 diclofenac sodium 1 % topical gel 1 ea topical PRN PRN arthritis 03/06/23 08/14/23 irbesartan 150 mg tablet 150 mg PO DAILY 03/06/23 08/14/23 prednisolone acetate 1 % eye 1 drp RIGHT EYE TID 04/30/23 08/14/23 drops,suspension Allergies Allergy/AdvReac Type Severity Reaction Status Date / Time Skxbmes-YLJ-EhV Reductase Allergy Mild Cramping Verified 07/18/23 11:32 Inhibitor of the [Gpnwdnu-Hge-Kyk Reductase Muscles Inhibitor] Penicillins Allergy Itching Verified 07/18/23 11:32 Review of Systems Review of Systems: CONSTITUTIONAL: Denies fever, chills, or sweats. CARDIOVASCULAR: Denies chest pain. RESPIRATORY: Denies dyspnea. MUSCULOSKELETAL: See HPI. NEUROLOGIC: See HPI. All systems reviewed & are unremarkable except as noted in HPI and below PMFSH Past Medical History Medical History Anxiety Chronic anemia Chronic kidney disease, stage 3 Baseline creatinine appears to be around 1.50. Dyslipidemia Essential hypertension Gastroesophageal reflux disease Grade II diastolic dysfunction Ejection fraction at that time was 60 to 65%. History of cerebrovascular accident (01/2015) Residual left-sided paresthesias. Insulin dependent type 2 diabetes mellitus Complicated by diabetic retinopathy, neuropathy, and nephropathy. Hemoglobin A1c was 8.4% in September 2020. Morbid obesity Obstructive sleep apnea (~04/2020) Mild FILI noted on home sleep study. Severe pulmonary arterial systolic hypertension (~01/2020) No obvious etiology has been found as of yet. Followed by Dr. Anastasiya Johnson. Shingles (~1999) Surgical History Surgical History (Reviewed 08/15/23 @ 04:10 by Claudine
[2023-08-15 02:22] LABS: Basophils Percent Auto 0.7 % (0.2-1.2); Eosinophils Absolute Auto 0.3 K/mm3 (0-0.3); Eosinophils Percent Auto 4.1 % (0-4.4); Hematocrit 31.6 % (37.0-47.0); Hemoglobin 10.4 g/dL (12.0-15.0); Immature Granulocyte Absolute 0.02 K/mm3 (0.00-0.031); Immature Granulocyte Percent A 0.3 % (0-0.5); Lymphocytes Absolute Auto 1.88 K/mm3 (0.9-3.2); Lymphocytes Percent Auto 31.1 % (18.3-44.2); Mean Corpuscular HGB Conc 32.9 g/dl (32-36); Mean Corpuscular Hemoglobin 31.2 pg (26-34); Mean Corpuscular Volume 94.9 fl (80-100); Mean Platelet Volume 12.9 fl (7.4-10.4); Monocytes Absolute Auto 0.8 K/mm3 (0.1-0.6); Monocytes Percent Auto 13.9 % (2.6-8.5); Neutrophils Percent Auto 49.9 % (45.5-73.1); Platelet Count Result 168 k/mm3 (150-375); Red Blood Count 3.33 M/mm3 (4.2-5.4); Red Cell Distribution Width 15.1 % (11.5-14.5); White Blood Count 6.1 K/mm3 (4.5-10.0)
[2023-08-15 02:39] LABS: Alanine Aminotransferase 14 U/L (6-35); Albumin Level 3.4 g/dL (3.5-5.1); Alkaline Phosphatase 58 U/L (38-126); Anion Gap 5 mmol/L (8-16); Aspartate Amino Transferase 22 U/L (14-36); Bilirubin,Total 0.4 mg/dL (0.2-1.3); Blood Urea Nitrogen 38 mg/dL (7-17); Calcium 8.8 mg/dL (8.4-10.2); Carbon Dioxide 29 mmol/L (22-30); Chloride 106 mmol/L (98-107); Estimated CRCL calculation 38 ml/min; Estimated Glomerular Filt Rate 36; Glucose 247 mg/dL (65-110); Sodium 140 mmol/L (137-145)
[2023-08-15 02:49] LABS: NT Pro B Type Natriuretic Pept 802 pg/mL (19.9-100)
[2023-08-15 03:17] LABS: Erythrocyte Sedimentation Rate > 140 mm/hr (0-20)
== END 2023-08-15 04:09 | disposition home or self-care (01) ==
PROVIDERS: Emergency Provider Physician Assistant; PCP Physician Assistant
DX: M79.661 Pain in right lower leg (principal); I89.0 Lymphedema, not elsewhere classified; E11.22 Type 2 diabetes mellitus with diabetic chronic kidney disease; I13.0 Hypertensive heart and chronic kidney disease with heart failure and stage 1 through stage 4 chronic kidney disease, or unspecified chronic kidney disease; I50.9 Heart failure, unspecified; N18.30 Chronic kidney disease, stage 3 unspecified; I69.954 Hemiplegia and hemiparesis following unspecified cerebrovascular disease affecting left non-dominant side; I27.21 Secondary pulmonary arterial hypertension; E11.319 Type 2 diabetes mellitus with unspecified diabetic retinopathy without macular edema; E11.40 Type 2 diabetes mellitus with diabetic neuropathy, unspecified; E11.21 Type 2 diabetes mellitus with diabetic nephropathy; D64.9 Anemia, unspecified; E89.0 Postprocedural hypothyroidism; E66.01 Morbid (severe) obesity due to excess calories; Z68.43 Body mass index [BMI] 50.0-59.9, adult; G47.33 Obstructive sleep apnea (adult) (pediatric); K21.9 Gastro-esophageal reflux disease without esophagitis; Z95.1 Presence of aortocoronary bypass graft; Z96.651 Presence of right artificial knee joint; Z98.49 Cataract extraction status, unspecified eye; Z90.710 Acquired absence of both cervix and uterus; Z79.82 Long term (current) use of aspirin; Z79.02 Long term (current) use of antithrombotics/antiplatelets; Z79.4 Long term (current) use of insulin; R93.6 Abnormal findings on diagnostic imaging of limbs
CPT/HCPCS: 36415; 73502; 73564; 80053; 83880; 85025; 85652; 93971; 99284; A9270; J2704

== ENCOUNTER 2023-09-04 21:02 | Emergency (ER) | payer MEDICARE, SELFPAY ==
--- NOTE | ~2023-09-04 | CT_ITS ---
Clinical Indication: Dyspnea CT Scan of the Chest with Contrast: Technique: Contiguous sections were acquired throughout the chest after intravenous administration of 100 cc of Omnipaque 350. Dose reduction technique was used on this scan by utilizing automated expos ure control and iterative reconstruction technique. The dose-length product (DLP) was 985.03 mGy-cm. COMPARISON: 02/25/2022 Findings: There is no evidence of any significant mediastinal, hilar or axillary lymphadenopathy. There is no f illing defect in the pulmonary arterial tree to suggest pulmonary embolus. There is no evidence of ao rtic dissection or aneurysm. There is no evidence of pleural or pericardial effusion. There are several subcentimeter groundglass nodular opacities in the upper lobes, suggestive of focal pneumonitis. Images through the upper abdomen reveal no abnormalities. Impression: No evidence of pulmonary embolus, aortic dissection, or aortic aneurysm. Several subcentimeter groundglass nodular opacities in the upper lobes, suggestive of focal areas of mild pneumonitis. Reviewed, dictated and finalized at [facility]. HER HELPER Impression: No evidence of pulmonary embolus, aortic dissection, or aortic aneurysm. Several subcentimeter groundglass nodular opacities in the upper lobes, suggest cara of focal areas of mild pneumonitis.
--- NOTE | ~2023-09-04 | XR_ITS ---
EXAMINATION: XR chest 1V portable DATE: 09/04/2023 22:43 INDICATION: Shortness of breath and increasing weakness TECHNIQUE: frontal view of the chest was obtained. COMPARISON: Chest radiograph dated 03/06/2023 FINDINGS: The lungs are clear with no focal airspace opacities, pulmonary edema, pleural effusion or pneumothor ax. Cardiomegaly. Status post median sternotomy with mediastinal surgical clips suggesting prior karmen nary artery bypass grafting. Retained epicardial pacemaker leads along the inferior heart. IMPRESSION: 1. No acute cardiopulmonary disease. Reviewed, dictated and finalized at location A. ESALE BUYER
--- NOTE | ~2023-09-04 | XR_ITS ---
Bilateral open and closed mouth views of the temporomandibular joints CLINICAL HISTORY: Right jaw pain FINDINGS: No fracture or dislocation evident. Mandibular condyles demonstrate normal location and chantelle se mouth views, with apparent anterior translation open-mouth views. Sinuses appear clear. Soft tissu es are unremarkable. IMPRESSION: No significant abnormality identified. Reviewed, dictated and finalized at [facility]. 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
--- NOTE | 2023-09-04 21:03 | ECG_ITS ---
Measurements Intervals [place] Rate: 70 P: -41 NE: 192 QRS: 0 QRSD: 92 T: 76 QT: 401 QTc: 434 Interpretive Statements SINUS RHYTHM POSSIBLE ANTERIOR MYOCARDIAL INFARCTION , PROBABLY OLD [30 ms Q WAVE IN V3/V4, OR R < 0.2 mV IN V4] INFERIOR MYOCARDIAL INFARCTION , PROBABLY OLD [40+ ms Q WAVE AND/OR ST/T ABNORMALITY IN II/aVF] ABNORMAL ECG COMPARED TO ECG 03/06/2023 16:25:18 NO SIGNIFICANT CHANGES Electronically Signed On 09-05-2023 11:45:19 COMMODITY BROKER by Ascencion Arevalo M.D.
[2023-09-04 21:08] VITALS: BP 151/82; PULSE 72; RESP 20; TEMP 36.4; O2SAT 100
[2023-09-04 22:29] VITALS: BP 177/57; PULSE 72; RESP 17; TEMP 36.7; O2SAT 100
[2023-09-04 22:46] LABS: Basophils Percent Auto 0.4 % (0.2-1.2); Eosinophils Absolute Auto 0.2 K/mm3 (0-0.3); Eosinophils Percent Auto 2.9 % (0-4.4); Hematocrit 32.9 % (37.0-47.0); Hemoglobin 10.4 g/dL (12.0-15.0); Immature Granulocyte Absolute 0.02 K/mm3 (0.00-0.031); Immature Granulocyte Percent A 0.3 % (0-0.5); Lymphocytes Absolute Auto 2.09 K/mm3 (0.9-3.2); Lymphocytes Percent Auto 26.8 % (18.3-44.2); Mean Corpuscular HGB Conc 31.6 g/dl (32-36); Mean Corpuscular Hemoglobin 30.1 pg (26-34); Mean Corpuscular Volume 95.1 fl (80-100); Mean Platelet Volume 12.1 fl (7.4-10.4); Monocytes Absolute Auto 1.2 K/mm3 (0.1-0.6); Monocytes Percent Auto 15.8 % (2.6-8.5); Neutrophils Absolute Auto 4.2 K/mm3 (1.3-6.7); Neutrophils Percent Auto 53.8 % (45.5-73.1); Platelet Count Result 201 k/mm3 (150-375); Red Blood Count 3.46 M/mm3 (4.2-5.4); Red Cell Distribution Width 16.2 % (11.5-14.5); White Blood Count 7.8 K/mm3 (4.5-10.0)
[2023-09-04 23:21] LABS: Alanine Aminotransferase 15 U/L (6-35); Albumin Level 3.8 g/dL (3.5-5.1); Alkaline Phosphatase 50 U/L (38-126); Anion Gap 6 mmol/L (8-16); Aspartate Amino Transferase 39 U/L (14-36); Bilirubin,Total 0.7 mg/dL (0.2-1.3); Blood Urea Nitrogen 34 mg/dL (7-17); Calcium 9.2 mg/dL (8.4-10.2); Carbon Dioxide 29 mmol/L (22-30); Chloride 103 mmol/L (98-107); Estimated CRCL calculation 38 ml/min; Estimated Glomerular Filt Rate 36; Glucose 167 mg/dL (65-110); Influenza A QL RT-PCR Negative (Negative); Influenza B QL RT-PCR Negative (Negative); Potassium 4.3 mmol/L (3.4-5.0); RSV RNA, RT-PCR Negative (Negative); SARS-CoV-2 RNA PCR Negative (Negative); Sodium 138 mmol/L (137-145)
[2023-09-04 23:25] VITALS: BP 187/56; PULSE 71; RESP 18; O2SAT 100
--- NOTE | 2023-09-05 00:14 | ED.GENADULT ---
HPI - General Adult General Chief complaint: Shortness of Breath/Dyspnea Stated complaint: sob, R jaw pain Time Seen by Provider: 09/04/23 23:14 Source: patient Mode of arrival: ambulatory Limitations: no limitations History of Present Illness HPI narrative: This is a 73-year-old female with PMH of CHF, CAD, CABG, CKD, T2 dm, CVA who presents to the ED with chief complaint of increased dyspnea over the past couple of days. She is unsure of orthopnea because she never lays flat. She has chronic lymphedema as well and does not feel that her legs are swollen more than normal. Denies palpitations, chest pain, syncope, vomiting. Secondary complaints of right-sided jaw pain. She reports a localized pain to the right TMJ area. Reports it is hard to open her mouth fully. She reports feeling some locking and clicking in the area. He states the pain radiates down from the TMJ area to the lower chin at times. Denies any radiating chest pain up into the jaw. Denies any injury or trauma. Endorses a little bit of congestion and sore throat over the last few days. Denies fevers, chills, cough, urinary symptoms. Denies dental pain or ear pain Related Data Home Medications Medication Instructions Recorded Confirmed clopidogrel 75 mg tablet 75 mg PO DAILY 02/18/21 08/26/23 metoprolol tartrate 37.5 mg tablet 37.5 mg PO Q12H 02/18/21 08/26/23 potassium chloride 10 mEq 20 meq PO BID 02/18/21 08/26/23 tablet,extended release (K-Tab) pantoprazole 40 mg tablet,delayed 40 mg PO HS 04/15/21 08/26/23 release bumetanide 2 mg tablet 2 mg PO BID 04/07/22 08/26/23 ergocalciferol (vitamin D2) 1,250 1,250 mcg PO WEEKLY 04/07/22 08/26/23 mcg (50,000 unit) capsule pregabalin 75 mg capsule 75 mg PO TID 04/07/22 08/26/23 sucralfate 1 gram tablet (Carafate) 1 g PO QID 04/07/22 08/26/23 simvastatin 20 mg tablet 40 mg PO DAILY 12/13/22 08/26/23 ezetimibe 10 mg tablet 10 mg PO DAILY 01/15/23 08/26/23 famotidine 40 mg tablet 40 mg PO DAILY 01/15/23 08/26/23 ketorolac 0.5 % eye drops 1 drp RIGHT EYE TID 01/15/23 08/26/23 diclofenac sodium 1 % topical gel 1 ea topical PRN PRN arthritis 03/06/23 08/26/23 irbesartan 150 mg tablet 150 mg PO DAILY 03/06/23 08/26/23 prednisolone acetate 1 % eye 1 drp RIGHT EYE TID 04/30/23 08/26/23 drops,suspension Allergies Allergy/AdvReac Type Severity Reaction Status Date / Time Zdewcgv-JIF-EfJ Reductase Allergy Mild Cramping Verified 08/22/23 15:33 Inhibitor of the [Uhydmxz-Brm-Muv Reductase Muscles Inhibitor] Penicillins Allergy Itching Verified 08/22/23 15:33 Review of Systems Review of Systems: All systems as dictated in [facility] Past Medical History Medical History Anxiety Chronic anemia Chronic kidney disease, stage 3 Baseline creatinine appears to be around 1.50. Dyslipidemia Essential hypertension Gastroesophageal reflux disease Grade II diastolic dysfunction Ejection fraction at that time was 60 to 65%. History of cerebrovascular accident (01/2015) Residual left-sided paresthesias. Insulin dependent type 2 diabetes mellitus Complicated by diabetic retinopathy, neuropathy, and nephropathy. Hemoglobin A1c was 8.4% in September 2020. Morbid obesity Obstructive sleep apnea (~04/2020) Mild FILI noted on home sleep study. Severe pulmonary arterial systolic hypertension (~01/2020) No obvious etiology has been found as of yet. Followed by Dr. Anastasiya Johnson. [place] (~1999) Surgical History Surgical History History of 2 sections History of arthroplasty of right knee History of cataract extraction History of dilation and curettage History of inguinal hernia repair History of partial thyroidectomy History of tonsillectomy and adenoidectomy History of total hysterectomy Family History Family History Mother
[2023-09-05 01:04] LABS: NT Pro B Type Natriuretic Pept 1520 pg/mL (19.9-100)
[2023-09-05 01:55] LABS: Troponin I 0.021 ng/mL (0.000-0.034)
[2023-09-05] MEDS: MORPHINE SULFATE (*CRX) 4 MG/ML INJ IV PUSH (02:07)
[2023-09-05] MEDS: ONDANSETRON INJ 4 MG/2 ML VIAL IV PUSH (02:07)
[2023-09-05 02:09] VITALS: BP 183/82; PULSE 81; RESP 18; O2SAT 100
[2023-09-05 04:00] VITALS: BP 148/85; PULSE 70; RESP 15; O2SAT 100
== END 2023-09-05 04:15 | disposition home or self-care (01) ==
PROVIDERS: Emergency Medicine; Emergency Provider Physician Assistant; PCP Physician Assistant
DX: R06.02 Shortness of breath (principal); M26.629 Arthralgia of temporomandibular joint, unspecified side; Z20.822 Contact with and (suspected) exposure to COVID-19; I12.9 Hypertensive chronic kidney disease with stage 1 through stage 4 chronic kidney disease, or unspecified chronic kidney disease; E11.22 Type 2 diabetes mellitus with diabetic chronic kidney disease; N18.30 Chronic kidney disease, stage 3 unspecified; Z79.4 Long term (current) use of insulin; F41.9 Anxiety disorder, unspecified; D64.9 Anemia, unspecified; K21.9 Gastro-esophageal reflux disease without esophagitis
CPT/HCPCS: 36415; 70330; 71045; 71275; 80053; 83880; 84484; 85025; 85380; 87637; 93005; 96374; 96375; 99284; J2270; J2405; Q9967

== ENCOUNTER 2023-09-21 10:00 | Outpatient (RCR) | payer MEDICARE, SELFPAY ==
--- NOTE | 2023-07-04 14:36 | OPREHPOC ---
Outpatient Therapy Plan of Care This is a Multidisciplinary Plan of Care that may contain components documented by all disciplines (PT, OT, and ST.) PT Problem 1 PT Problem #1 Knowledge Deficit PT Goal 1 Goal 1* indep with HEP 2* indep with self manual lymph drainage PT Problem 2 PT Problem #2 Pain PT Goal 1 Goal 1* pt report decreased tightness and heaviness of legs PT Problem 3 PT Problem #3 Impaired Strength PT Goal 1 Goal decrease lymphedema of legs, to improve mobility skills and leg stregnth 1* pt perform R and L LE exercises in supine x 20 reps PT Problem 4 PT Problem #4 Impaired Lymphatic System PT Goal 1 Goal decrease lymphedema over legs to improve mobility and decrease tightness/pain: circumferential measurement of LE's to 60 cm: 1* R 680 cm 2* L 650 cm no fibrotic tissue over lower leg 3* R 4* L 5* pt obtain appropriate compression garments for R and L LEs
--- NOTE | 2023-07-04 14:37 | PTOPEVAL1 ---
Assessment and note entered by Mary Duarte, PT Evaluation Information Assessment Status Evaluation Diagnosis bilateral LE lymphedema Onset December 2022 Subjective Information after heart surgery about 2 years ago, legs have been swollen, gradually getting larger; in the past 6 months have fallen 1x; ACTIVITY level: use wheeled walker for mobility; live with family- they assist with washing her back, and safety with transfer in/out tub, putting on shoes and socks; cooking and cleaning; does some light cooking; does not drive, mostly stays home; is doing leg exercises from previous PT treatment; Reported Pain Level Pain Score 8: Self Report Additional Pain Score Comments tightness in legs, skin feels like sandpaper, legs tender to touch; some tingling in legs; Assessment PT Clinical Summary Katlin has the diagnosis of bilateral LE lymphedema. She reports pain in her legs and uses a wheeled walker for mobility. Her risk factors from her medical history include: HTN, obesity, respiratory, diabetes, thyroidectomy. Her family assist her with home tasks and self care. With the evaluation, both legs have fibrotic tissue over lower legs and lobules over medial knees and thighs; edema over ankles and dorsum of feet, and tenderness to touch; Skilled PT services are indicated for treatment of combination lipedema and lymphedema: multiple layer compression wraps, manual lymph drainage, LE exercises, intermittent compression pump, compression garments and self care to manage lymphedema. Plan of Care Interventions Intermittent Compression pump,Lymphedema Compression Wraps ,Manual Lymph Drainage,Patient/Caregiver Education, Therapeutic Exercise PT Services Indicated Yes Treatment Frequency and 3x/wk for 8 weeks Duration These treatments will address the objective and functional deficits as defined above. The patient will be advanced safely and appropriately in order for the patient to progress towards his/her prior level of function. Additional exercises will be introduced and as well as a comprehensive home exercise program upon discharge, if needed, ?to ensure carryover of functional gains achieved in the cl
--- NOTE | 2023-08-14 08:17 | PCPTNOTE ---
08-13-23: appt canceled due to bad weather.
--- NOTE | 2023-08-24 11:06 | PTOPPROG ---
Assessment and note entered by Mary Duarte, PT Progress Information Assessment Status Progress Diagnosis bilateral LE lymphedema Onset December 2022 Subjective Information legs are doing better; using the velcro garment, doing self massage, doing leg exercises, wearing the capris; removed all the wraps and leg pieces this morning about 7, to take a shower before coming in; Assessment PT Clinical Summary Katlin has received 14 PT sessions. She has compression velcro garment for R lower leg and compression capris. The L lower leg is currently receiving compression wraps. She has just received her home intermittent compression pump and company is going to do a home visit to train her on its' use. Education ongoing for self care of lymphedema, garment and compression to legs. With the circumferential measurements of her legs- - today's numbers are increased compared to the initial evaluation; prior to today's appointment, she removed her garments and wraps to take a shower and they have reswollen. During the sessions, her best measurements: R has decreased by 73.2 cm and L by 14.9 cm. The goals were partially met. Continue PT treatment for further reduction of lymphedema over both legs and for her to obtain compression for both thighs and lower legs. With continued progression of education. Plan of Care Interventions Intermittent Compression,Lymphedema Compression Wr ,Manual Lymph Drainage,Patient/Caregiver Educati, Therapeutic Exercise PT Services Indicated Yes Treatment Frequency and 3x/wk for 10 visits Duration These treatments will address the objective and functional deficits as defined above. The patient will be advanced safely and appropriately in order for the patient to progress towards his/her prior level of function. Additional exercises will be introduced and as well as a comprehensive home exercise program upon discharge, if needed, ?to ensure carryover of functional gains achieved in the clinic. This treatment plan has been reviewed and agreement upon by the patient.
--- NOTE | 2023-08-24 11:07 | OPREHPOC ---
Outpatient Therapy Plan of Care This is a Multidisciplinary Plan of Care that may contain components documented by all disciplines (PT, OT, and ST.) PT Problem 1 PT Problem #1 Knowledge Deficit PT Goal 1 Goal 1* indep with HEP 2* indep with self manual lymph drainage Progress Met PT Goal 2 Goal 08-24-23 progress met goals continue towards goals PT Problem 2 PT Problem #2 Pain PT Goal 1 Goal 1* pt report decreased tightness and heaviness of legs Progress Not Met Comment 08-24-23 progress goal not met, continue towards PT Problem 3 PT Problem #3 Impaired Strength PT Goal 1 Goal decrease lymphedema of legs, to improve mobility skills and leg stregnth 1* pt perform R and L LE exercises in supine x 20 reps Progress Not Met Comment 08-24-23 progress goal not met, continue towards PT Problem 4 PT Problem #4 Impaired Lymphatic System PT Goal 1 Goal decrease lymphedema over legs to improve mobility and decrease tightness/pain: circumferential measurement of LE's to 60 cm: 1* R 680 cm 2* L 650 cm no fibrotic tissue over lower leg 3* R 4* L 5* pt obtain appropriate compression garments for R and L LEs Progress Partially Met Comment 08-24-23 progress goal 5 partially met for R lower leg continue towards goals
--- NOTE | 2023-09-24 16:01 | PCPTNOTE ---
pt showed late for today's appt and not able to be seen. Her appt was 3:30, pt before her did not show, so Katlin was called and going to come in early. She called and said she would be late due to phone call from her dr. She arrived at 4:00 for lymphedema treatment, did not have enough time for treatment.
--- NOTE | 2023-11-08 11:04 | PCPTNOTE ---
DISCHARGE PHYSICAL THERAPY Katlin has received 18 PT sessions for LE lymphedema, with last session on Sep 14, then she was hospitalized. Discharge PT services, due to pt hospitalized. The goals were not addressed.
== END 2023-10-02 23:59 | disposition home or self-care (01) ==
LOC: ANHPT 10:00
PROVIDERS: PCP Physician Assistant; Visit Provider Nurse Practitioner Family
DX: I89.0 Lymphedema, not elsewhere classified (principal)
CPT/HCPCS: 29581; 36415; 80069; 82570; 84156; 97016; 97110; 97140; 97161; 97530; 99199

== ENCOUNTER 2023-09-27 13:55 | Inpatient (IN) | payer MEDICARE, SELFPAY ==
--- NOTE | ~2023-09-27 | US_ITS ---
EXAMINATION: US renal BI DATE: 10/01/2023 20:39 INDICATION: elevated creatinine TECHNIQUE: Multiple grayscale and Doppler ultrasound images of the kidneys were obtained. COMPARISON: None. FINDINGS: Somewhat limited evaluation due to body habitus and shadowing from bowel gas. The right kidney measur es 12.5 x 5.4 x 5.5 cm. The left kidney measures 10.2 x 6.0 x 6.0 cm. The kidneys demonstrate normal parenchymal echogenicity. There is no hydronephrosis. The bladder is normal. IMPRESSION: Unremarkable renal sonogram findings. Reviewed, dictated and finalized at location K.
--- NOTE | ~2023-09-27 | CT_ITS ---
EXAMINATION: CT cervical spine wo con DATE: 10/04/2023 18:29 INDICATION: Left arm numbness and pain. TECHNIQUE: Computed tomography (CT) of the cervical spine was performed without intravenous contrast. The dose-length product was 576 mGy-cm. Automated exposure control and iterative reconstruction tech nique were employed. COMPARISON: None FINDINGS: There is mild disc narrowing with ossification of the disc spaces at multiple levels, consi stent with mild multilevel degenerative disc disease. Normal cervical lordosis. Vertebral body height s are maintained. Craniovertebral junction within normal limits. No evidence for perched facet. There is carotid and right vertebral atherosclerosis. IMPRESSION: 1. Mild cervical spondylosis. Reviewed, dictated and finalized at location A.
--- NOTE | ~2023-09-27 | XR_ITS ---
XR chest 2V DATE: 10/21/2023 10:44 INDICATION: Shortness of breath TECHNIQUE: AP and lateral views COMPARISON: 10/15/2023 AP and lateral views FINDINGS: Cardiomegaly. Status post sternotomy. Aortic calcification. Mild prominence of minor and greater fissures suggests possible subpleural edema. Small pleural effus ions. There is minimal infiltrate or atelectasis in the lower lung zones. No pneumothorax. IMPRESSION: Little interval change since 10/15/2023 Reviewed, dictated and finalized at location A.
--- NOTE | ~2023-09-27 | CT_ITS ---
EXAMINATION: CT diagnostic chest wo con DATE: 10/13/2023 17:58 INDICATION: Shortness of breath TECHNIQUE: Computed tomography (CT) of the chest was performed with 100 mL Omnipaque-350 intravenous contrast. Automated exposure control and iterative reconstruction technique were employed. The dose-l ength product was 817.74 mGy-cm. COMPARISON: CTPA 09/27/2023. FINDINGS: CHEST: Thoracic aorta: No significant dilation or calcification. Lung parenchyma and airways: Lungs and airways are clear. Resolved pulmonary nodules. Thoracic inlet, axillae and chest wall: No thyroid or soft tissue mass. No axillary lymphadenopathy. Sternal fixation. Abandoned pacer wires. Mediastinum: No mass or lymphadenopathy. Heart and pericardium: Cardiomegaly. Coronary artery calcifications: Heavy. Pleura: Small bilateral pleural fluid collections. Upper abdomen: No significant finding. Thoracic bones: No acute osseous finding in the chest. IMPRESSION: No acute thoracic process detected. Reviewed, dictated and finalized at location K.
--- NOTE | ~2023-09-27 | CT_ITS ---
EXAMINATION: CTA chest PE protocol DATE: 09/27/2023 17:58 INDICATION: Shortness of breath. TECHNIQUE: Computed tomography angiography (CTA) of the chest was performed with 100 mL Omnipaque-350 intravenous contrast timed to evaluate the pulmonary arteries. Coronal maximum intensity projection 3D-reconstructions were created by the technologist. Automated exposure control and iterative reconst ruction technique were employed. The dose-length product was 1001.20 mGy-cm. COMPARISON: Chest CT 09/05/2023 FINDINGS: The lungs demonstrate mild atelectasis. There are a few scattered nodules with groundglass halos in the lungs measuring up to 5 mm. There is smooth septal thickening bilaterally, consistent mi ld pulmonary edema. There are small pleural effusions. Cardiomegaly is noted. There are coronary jus ry calcifications. There are changes of coronary artery bypass grafting. No pericardial effusion. The re is no pulmonary embolus. There is an 11 mm cyst in the liver. There is thoracic kyphosis and mild spondylosis. IMPRESSION: 1. No pulmonary embolus. 2. Mild pulmonary edema with small pleural effusions. 3. Small pulmonary nodules with interval change in distribution, which may be a component of pulmonar y edema or may be infection. Reviewed, dictated and finalized at location E. [employer] IMPRESSION: 1. No pulmonary embolus. 2. Mild pulmonary edema with small pleural effusions. 3. Small pulmonary nodules with interval change in distribution, which may be a component of pulmonary edema or may be infection.
--- NOTE | ~2023-09-27 | XR_ITS ---
EXAMINATION: XR ribs RT 2V Exam Date/Time: 10/08/2023 14:00 CDT HISTORY: right anterior chest and back pain Comparison: X-ray chest 10/06/2023. RESULT: Lines, tubes, and devices: Abandoned epicardial pacing wires. Mediastinal surgical clips. Hardware e xternal fixation. Lungs and pleura: Clear. Cardiothymic silhouette: Stable. Other: No acute osseous or upper abdominal finding. Loose joint body in the right shoulder. IMPRESSION: No acute cardiopulmonary process. No acute osseous finding in the right ribs. Reviewed, dictated and finalized at location K.
--- NOTE | ~2023-09-27 | XR_ITS ---
XR chest 2V 10/15/2023 13:49 Indication: Dyspnea. Procedure: AP and lateral views of the chest Comparison: Comparison to multiple prior studies sequentially, with oldest reviewed study dated 03/2024. Findings: Status post median sternotomy for CABG. Cardiomegaly. Mild interstitial edema. No pleural e ffusion. No pneumothorax. Impression: 1: Cardiomegaly with mild interstitial edema. Reviewed, dictated and finalized at location B. Impression: 1: Cardiomegaly with mild interstitial edema.
--- NOTE | ~2023-09-27 | XR_ITS ---
EXAMINATION: XR chest 2V DATE: 09/27/2023 15:24 INDICATION: Shortness of breath and chest pain with inspiration TECHNIQUE: frontal and lateral views of the chest were obtained. COMPARISON: Chest radiograph dated 09/04/[address] dated 09/05/2023 FINDINGS: Posterior and infrahilar predominant opacities in both lower lung zones. No pleural effusion or pneum othorax. Heart size is within normal limits for AP technique. Median sternotomy wires and fixation de vices, ostial markers and mediastinal surgical clips consistent with prior coronary artery bypass gra fting. Retained epicardial pacemaker leads. IMPRESSION: 1. Mild infrahilar and posterior predominant opacities at the bilateral lower lung zones which could represent mild pulmonary edema, pneumonia or atelectasis. Reviewed, dictated and finalized at location A. [employer] IMPRESSION: 1. Mild infrahilar and posterior predominant opacities at the bilateral lower l dawn zones which could represent mild pulmonary edema, pneumonia or atelectasis.
--- NOTE | ~2023-09-27 | XR_ITS ---
Portable chest x-ray Comparison: 10/08/2023 Clinical History: Shortness of breath Findings: Questionable minimal bibasilar pulmonary edema. Cardiomediastinal silhouette is stable, s tatus post CABG. Bones and soft tissues are unremarkable. Impression: Questionable minimal bibasilar pulmonary edema. Reviewed, dictated and finalized at location . Impression: Questionable minimal bibasilar pulmonary edema.
--- NOTE | ~2023-09-27 | CT_ITS ---
EXAMINATION: CT brain wo con DATE: 10/04/2023 18:29 INDICATION: Left arm weakness TECHNIQUE: Computed tomography (CT) of the head was performed without intravenous contrast. The dose- length product was 681.00 mGy-cm. Automated exposure control and iterative reconstruction technique w ere employed. COMPARISON: CT dated 03/06/2023 FINDINGS: There is chronic infarction of the right parietal and occipital lobes with encephalomalacia . No acute intracranial hemorrhage, infarction, mass or mass effect. No ventriculomegaly or midline s hift. Basilar cisterns are patent. Paranasal sinuses and mastoids are pneumatized. No depressed skull fractures. IMPRESSION: 1. No acute intracranial abnormality. 2: Chronic right parietal and occipital lobe infarctions with encephalomalacia. Reviewed, dictated and finalized at location A. IMPRESSION: 1. No acute intracranial abnormality. 2: Chronic right parietal and occipital lobe infarctions with encephalomalacia .
--- NOTE | ~2023-09-27 | XR_ITS ---
XR chest 1V portable DATE: 09/29/2023 06:23 INDICATION: Shortness of breath TECHNIQUE: Portable AP chest on 09/29/2023 at 0539 hours COMPARISON: 09/27/2023 CTA chest 09/27/2023 2 view chest FINDINGS: Status post sternotomy, coronary bypass graft surgery. Cardiomegaly. Aortic calcification. Retained epicardial pacemaker wires. . Small left pleural effusion. No pulmonary consolidation is noted. No pneumothorax. Osteopenia. IMPRESSION: Cardiomegaly Status post sternotomy and coronary bypass graft surgery Small left pleural effusion Reviewed, dictated and finalized at location A. 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
--- NOTE | ~2023-09-27 | NM_ITS ---
NM lung vent and perfusion INDICATION: Dyspnea. TECHNIQUE: The patient inhaled aerosolized 25.8 mCi xenon-133. Following ventilation scan, 5.3 mCi T c 99m MAA was injected intravenously for perfusion images. Multiple images were then acquired. COMPARISON: Chest x-ray dated 10/15/2023 FINDINGS: The comparison chest radiograph demonstrates mild interstitial edema. On the left lateral p erfusion image there is a curvilinear indentation in the left upper pulmonary parenchyma, likely vasc ular. There is a small filling defect in the right upper lobe posteriorly with corresponding perfusio n abnormality on ventilation images. No significant ventilation perfusion mismatches are identified. IMPRESSION: 1: Low probability for pulmonary embolism.. Reviewed, dictated and finalized at location B.
--- NOTE | ~2023-09-27 | NM_ITS ---
EXAMINATION: NM renal flow and function DATE: 10/08/2023 14:28 INDICATION: Acute kidney injury TECHNIQUE: 7.7 mCi Tc-99m MAG3 was administered IV. 40 mg furosemide was administered IV immediately afterward. The patient was scanned in the supine position. A posterior abdominal radionuclide angiog jean pierre was obtained. A subsequent time course of static images of the kidneys, ureters, and bladder was obtained. COMPARISON: Renal ultrasound dated 10/01/[address] dated 09/27/2023 FINDINGS: The posterior abdominal radionuclide angiogram and sequential static images show normal size, positio n, and morphology of the kidneys. Peak renal parenchymal uptake was 4.5 min in left kidney and 4.5 mi n in right kidney (normal peak 3-5 minutes). The relative early renal uptake was 47% on the left and 53% on the right (<40% is abnormal). No abnormalities of the ureters or bladder are seen. T1/2 for clearance of activity from the left kidney and proximal collecting system was 10 minutes. T1/2 for clearance of activity from the right kidney and proximal collecting system was 16 minutes. Notes on interpretation: T1/2 <10 minutes is normal, 10-15 minutes is low grade obstruction of questi onable clinical significance, 15-20 minutes is partial obstruction that is likely clinically signific ant, >20 minutes is high grade obstruction. Note that false positives may be seen with supine positio lisa, dehydration, severely dilated nonobstructed kidney, atonic collecting system, poor renal functi on, and chronic furosemide use. IMPRESSION: 1. Symmetric kidney function. 2. Borderline delayed activity clearance from the left kidney, mild to moderately delayed activity c learance from the right kidney with no evident hydronephrosis on the current or prior imaging which s uggests nonspecific nephropathy. Reviewed, dictated and finalized at location A. IMPRESSION: 1. Symmetric kidney function. 2. Borderline delayed activity clearance from the left kidney, mild to moderat iain delayed activity clearance from the right kidney with no evident hydronephr osis on the current or prior imaging which suggests nonspecific nephropathy.
--- NOTE | ~2023-09-27 | XR_ITS ---
EXAMINATION: XR chest 2V DATE: 10/06/2023 11:09 INDICATION: Shortness of breath TECHNIQUE: frontal and lateral views of the chest were obtained. COMPARISON: Chest radiograph dated 10/09/2023 FINDINGS: The lungs remain clear with no focal airspace opacities, pulmonary edema, pleural effusion or pneumot horax. Cardiomegaly. Change of prior median sternotomy with mediastinal wires and fixation device dev ices and mediastinal surgical clips are seen, likely from prior coronary artery bypass grafting. Kerry ined epicardial pacemaker leads. IMPRESSION: 1. No acute cardiopulmonary disease. 2. Cardiomegaly. Reviewed, dictated and finalized at location A.
--- NOTE | ~2023-09-27 | US_ITS ---
EXAMINATION: US venous doppler [facility] DATE: 09/30/2023 17:27 INDICATION: Lower limb swelling. TECHNIQUE: Grayscale ultrasound images without and with compression and Doppler ultrasound images of the bilateral lower extremity veins were obtained. COMPARISON: Ultrasound 08/14/2023 FINDINGS: The visualized portions of right common femoral vein, profunda (deep) femoral vein, femoral vein, pop liteal vein, peroneal veins, posterior tibial veins, and greater saphenous vein outflow are patent. The visualized portions of left common femoral vein, profunda femoral vein, femoral vein, popliteal v ein, peroneal veins, posterior tibial veins, and greater saphenous vein outflow are patent. IMPRESSION: 1. No deep venous thrombosis. Reviewed, dictated and finalized at location E.
--- NOTE | 2023-09-27 14:08 | ECG_ITS ---
Measurements Intervals [place] Rate: 71 P: 18 [place]: 206 QRS: 39 QRSD: 105 T: 122 QT: 423 QTc: 462 Interpretive Statements SINUS RHYTHM DELAYED PRECORDIAL R/S TRANSITION CONSIDER INFERIOR INFARCT, AGE INDETERMINATE BORDERLINE ST-T WAVE ABNORMALITY- LAT/HIGH LAT LEADS BASELINE ARTIFACT- I, III, AVL ABNORMAL ECG COMPARED TO ECG 09/04/2023 21:16:24 NO SIGNIFICANT CHANGES Electronically Signed On 09-27-2023 14:51:14 MANAGER MECHANICAL MAINTENANCE by Kiran Moss D.O.
[2023-09-27 14:10] VITALS: BP 198/65; RESP 16; TEMP 36.4; O2SAT 100
[2023-09-27 14:26] LABS: Basophils Percent Auto 0.4 % (0.2-1.2); Eosinophils Absolute Auto 0.2 K/mm3 (0-0.3); Eosinophils Percent Auto 2.4 % (0-4.4); Hemoglobin 10.8 g/dL (12.0-15.0); Immature Granulocyte Absolute 0.02 K/mm3 (0.00-0.031); Immature Granulocyte Percent A 0.3 % (0-0.5); Lymphocytes Absolute Auto 1.75 K/mm3 (0.9-3.2); Lymphocytes Percent Auto 26.1 % (18.3-44.2); Mean Corpuscular HGB Conc 31.8 g/dl (32-36); Mean Corpuscular Hemoglobin 30.4 pg (26-34); Mean Corpuscular Volume 95.8 fl (80-100); Mean Platelet Volume 12.9 fl (7.4-10.4); Monocytes Absolute Auto 0.9 K/mm3 (0.1-0.6); Monocytes Percent Auto 13.7 % (2.6-8.5); Neutrophils Absolute Auto 3.8 K/mm3 (1.3-6.7); Neutrophils Percent Auto 57.1 % (45.5-73.1); Platelet Count Result 170 k/mm3 (150-375); Red Blood Count 3.55 M/mm3 (4.2-5.4); Red Cell Distribution Width 16.4 % (11.5-14.5); White Blood Count 6.7 K/mm3 (4.5-10.0)
[2023-09-27 15:02] LABS: Influenza A QL RT-PCR Negative (Negative); Influenza B QL RT-PCR Negative (Negative); SARS-CoV-2 RNA PCR Negative (Negative)
--- NOTE | 2023-09-27 15:28 | ED.CHESTPAIN ---
HPI - Chest Pain General Chief Complaint: Asthma Stated Complaint: ASTHMA EXACERBATION Time Seen by Provider: 09/27/23 15:20 Focused HPI: Katlin is a 73-year-old female patient presenting to the emergency room today with complaints of shortness of breath and right-sided chest pain this been going on for a few days. She reports she does have a history of asthma. States that she had a recent stress test done and it showed blockages in her heart. She states that she has been wheezing. GENERAL: Well-appearing, morbidly obese, and in no acute distress. HEAD: Normocephalic, atraumatic. CHEST: Clear to auscultation. No respiratory distress. HEART: Regular rate and rhythm. NEURO: Alert and oriented x3. Patient screened in triage and initial orders placed. Additional care and disposition to be based upon diagnostic testing and treatment. Source: patient Mode of arrival: ambulatory Limitations: no limitations Related Data Home Medications Medication Instructions Recorded Confirmed clopidogrel 75 mg tablet 75 mg PO DAILY 02/18/21 09/28/23 metoprolol tartrate 37.5 mg tablet 37.5 mg PO Q12H 02/18/21 09/28/23 potassium chloride 10 mEq 20 meq PO BID 02/18/21 09/28/23 tablet,extended release (K-Tab) pantoprazole 40 mg tablet,delayed 40 mg PO HS 04/15/21 09/28/23 release bumetanide 2 mg tablet 2 mg PO BID 04/07/22 09/28/23 ergocalciferol (vitamin D2) 1,250 1,250 mcg PO WEEKLY 04/07/22 09/28/23 mcg (50,000 unit) capsule pregabalin 75 mg capsule 75 mg PO TID 04/07/22 09/28/23 famotidine 40 mg tablet 40 mg PO DAILY 01/15/23 09/28/23 ketorolac 0.5 % eye drops 1 drp RIGHT EYE TID 01/15/23 09/28/23 irbesartan 150 mg tablet 150 mg PO DAILY 03/06/23 09/28/23 Allergies Allergy/AdvReac Type Severity Reaction Status Date / Time [id number] Reductase Allergy Mild Cramping Verified 09/14/23 11:26 Inhibitor of the [Logbajk-Dha-Tjj Reductase Muscles Inhibitor] Penicillins Allergy Itching Verified 09/14/23 11:26 [facility] Past Medical History Medical History Anxiety Chronic anemia Chronic kidney disease, stage 3 Baseline creatinine appears to be around 1.50. Dyslipidemia Essential hypertension Gastroesophageal reflux disease Grade II diastolic dysfunction Ejection fraction at that time was 60 to 65%. History of cerebrovascular accident (01/2015) Residual left-sided paresthesias. Insulin dependent type 2 diabetes mellitus Complicated by diabetic retinopathy, neuropathy, and nephropathy. Hemoglobin A1c was 8.4% in September 2020. Morbid obesity Obstructive sleep apnea (~04/2020) Mild FILI noted on home sleep study. Severe pulmonary arterial systolic hypertension (~01/2020) No obvious etiology has been found as of yet. Followed by Dr. Anastasiya Johnson. [place] (~1999) Surgical History Surgical History History of 2 sections History of arthroplasty of right knee History of cataract extraction History of dilation and curettage History of inguinal hernia repair History of partial thyroidectomy History of tonsillectomy and adenoidectomy History of total hysterectomy Family History Family History Mother , age 80, congestive heart failure Heart disease High cholesterol Hypertension Cerebrovascular accident Diabetes mellitus Father Carcinoma of colon Cancer Sibling Systemic lupus erythematosus Heart disease Cancer Cerebrovascular accident Diabetes mellitus Social History Social History Social History: Patient lives at home with her fiance, Leon. She ambulates with a walker. She is mostly independent but does require some assistance of her fiance. She is a full code. She designates Leon as her surrogate decision maker. Her PCP is Mirtha Singleton.
[2023-09-27 17:20] LABS: INR 0.9; Partial Thromboplastin Time 22.5 SECONDS (22.3-36.8)
[2023-09-27 17:24] LABS: Alanine Aminotransferase 12 U/L (6-35); Albumin Level 3.5 g/dL (3.5-5.1); Alkaline Phosphatase 57 U/L (38-126); Anion Gap 4 mmol/L (8-16); Aspartate Amino Transferase 25 U/L (14-36); Bilirubin,Total 0.4 mg/dL (0.2-1.3); Blood Urea Nitrogen 26 mg/dL (7-17); Calcium 8.9 mg/dL (8.4-10.2); Carbon Dioxide 28 mmol/L (22-30); Chloride 107 mmol/L (98-107); Estimated Glomerular Filt Rate 38; Glucose 133 mg/dL (65-110); Potassium 3.8 mmol/L (3.4-5.0); Sodium 139 mmol/L (137-145)
[2023-09-27 17:25] LABS: D Dimer 2.34 ug/mL (<0.48)
[2023-09-27 17:35] LABS: NT Pro B Type Natriuretic Pept 1850 pg/mL (19.9-100); Troponin I 0.021 ng/mL (0.000-0.034)
--- NOTE | 2023-09-27 18:16 | ED.GENADULT ---
HPI - General Adult General Chief complaint: Asthma <Diya Altamirano PA-C - Last Filed: 09/27/23 18:46> Stated complaint: ASTHMA EXACERBATION <SILAS Duran Last Filed: 09/27/23 18:46> Time Seen by Provider: 09/27/23 15:20 <SILAS Duran Last Filed: 09/27/23 18:46> Source: patient <SILAS Duran Last Filed: 09/27/23 18:46> Mode of arrival: ambulatory <SILAS Duran Last Filed: 09/27/23 18:46> Limitations: no limitations <SILAS Duran Last Filed: 09/27/23 18:46> History of Present Illness HPI narrative: 73-year-old female with a history of CAD, mi in December of 2011 on s/p CABG, hypothyroidism, hyperlipidemia, hypertension, insulin-dependent type 2 diabetes, lymphedema, CKD, CHF, anemia requiring transfusions presents to the emergency department for chest pain and shortness of breath intermittently x3 weeks. The patient is being worked up by many specialists including Dr. Cardoso cardiology, Dr. Pulliam nephrology, Dr. Perry pulmonology. She was recently seen by pulmonology on 09/14/2023 with diagnosis of FILI and trial of CPAP. She was started on a prednisone taper for possible pneumonitis which she reports had some improvement. She had a stress test performed by Dr. Cardoso on 09/19/2023 which the patient reports revealed a blockage in 1 of her coronary arteries. Patient states intermittently for the past 3 weeks she has been having right-sided chest wall pain that is worse with hanging laundry. Patient does state that sometimes the pain radiates down her bilateral arms. She reports associated shortness of breath and had dry cough. She also states she has lower extremity edema which she is attributing to her lymphedema. States she has worsening orthopnea and a 20 lb weight gain in the past 3 weeks. States she has been taking her Bumex as prescribed. She is tearful on exam and is stating ?they are too many things wrong with me?. She denies fever but does endorse chills. Denies nausea or vomiting, diarrhea, abdominal pain. Denies history of smoking. States she received [address] DuoNebs in the EMS on the way to the ED with interval improvement but is since became more short of breath. Prior echo on 02/16/2020 shows a moderately increased LV wall thickness, EF of 60-65%, grade 2 diastolic dysfunction, right atrial chamber mildly enlarged, severe pulmonary hypertension with PA systolic pressure measuring 68 mmHg. <SILAS Duran Last Filed: 09/27/23 18:46> Related Data Home medications: Home Medications Medication Instructions Recorded Confirmed clopidogrel 75 mg tablet 75 mg PO DAILY 02/18/21 09/14/23 metoprolol tartrate 37.5 mg tablet 37.5 mg PO Q12H 02/18/21 09/14/23 potassium chloride 10 mEq 20 meq PO BID 02/18/21 09/14/23 tablet,extended release (K-Tab) pantoprazole 40 mg tablet,delayed 40 mg PO HS 04/15/21 09/14/23 release bumetanide 2 mg tablet 2 mg PO BID 04/07/22 09/14/23 ergocalciferol (vitamin D2) 1,250 1,250 mcg PO WEEKLY 04/07/22 09/14/23 mcg (50,000 unit) capsule pregabalin 75 mg capsule 75 mg PO TID 04/07/22 09/14/23 sucralfate 1 gram tablet (Carafate) 1 g PO QID 04/07/22 09/14/23 simvastatin 20 mg tablet 40 mg PO DAILY 12/13/22 09/14/23 ezetimibe 10 mg tablet 10 mg PO DAILY 01/15/23 09/14/23 famotidine 40 mg tablet 40 mg PO DAILY 01/15/23 09/14/23 ketorolac 0.5 % eye drops 1 drp RIGHT EYE TID 01/15/23 09/14/23 diclofenac sodium 1 % topical gel 1 ea topical PRN PRN arthritis 03/06/23 09/14/23 irbesartan 150 mg tablet 150 mg PO DAILY 03/06/23 09/14/23 prednisolone acetate 1 % eye 1 drp RIGHT EYE TID 04/30/23 09/14/23 drops,suspension <SILAS Duran Last Filed: 09/27/23 18:46> Allergies/adverse reactions: Allergies Allergy/AdvReac Type Severity Reaction Status Date / Time Dcljijq-UYY-SxW Reductase Allergy Mild Cramping Verified 09/14/23 11:26 Inhibitor of the [Vsoqgmf-Ynl-Kj
[2023-09-27 18:36] VITALS: BP 188/71; PULSE 65; RESP 16; O2SAT 100
[2023-09-27] MEDS: FUROSEMIDE INJ 40 MG/4 ML VIAL IV PUSH (18:36)
[2023-09-27 18:37] VITALS: PULSE 63; RESP 20
[2023-09-27] MEDS: IPRATROPIUM 0.5 MG/ALBUTEROL SULFATE 2.5 MG AMPUL.NEB 3 ML INHALATION (18:37)
[2023-09-27 18:46] VITALS: PULSE 65; RESP 20
--- NOTE | 2023-09-27 18:46 | PC.NURSE ---
Pt refusing to wear BP cuff at this time due to the cuff getting too tight. Pt was educated on importance of monitoring BP due to her BP being elevated. Pt verbalized understanding and refused BP cuff.
[2023-09-27] MEDS: ASPIRIN 81 MG CHEWABLE TABLET 324 MG PO (19:21)
[2023-09-27] MEDS: AZITHROMYCIN 500 MG/NS 250 ML 500 MG/250 ML BAG 250 MG IVPB (19:22)
--- NOTE | 2023-09-27 20:16 | PM.IMHP ---
H&P: HPI History of Present Illness Date/Time: 09/27/23 20:16 Chief Complaint: shortness of breath Narrative: This is a 73-year-old female with past medical history significant for coronary artery disease, coronary artery bypass graft, obstructive sleep apnea, patient is currently in the process of getting her CPAP machine adjusted, type 2 diabetes mellitus, morbid obesity, chronic kidney disease. patient presents to the emergency room with worsening swelling of bilateral lower extremities, increased abdominal girth, PND, orthopnea, for the last several days or so, patient denies any chest pain, denies nausea, vomiting, abdominal pain. preliminary workup was significant for patient was rule out for pulmonary embolism with CT angiogram however infiltrates were noticeable , patient tested negative for influenza type A influenza type B and COVID-19. Patient has been admitted for further evaluation management and treatment. EXAMINATION: XR chest 2V DATE: 09/27/2023 15:24 INDICATION: Shortness of breath and chest pain with inspiration TECHNIQUE: frontal and lateral views of the chest were obtained. COMPARISON: Chest radiograph dated 09/04/[address] dated 09/05/2023 FINDINGS: Posterior and infrahilar predominant opacities in both lower lung zones. No pleural effusion or pneumothorax. Heart size is within normal limits for AP technique. Median sternotomy wires and fixation devices, ostial markers and mediastinal surgical clips consistent with prior coronary artery bypass grafting. Retained epicardial pacemaker leads. IMPRESSION: 1. Mild infrahilar and posterior predominant opacities at the bilateral lower lung zones which could represent mild pulmonary edema, pneumonia or atelectasis. EXAMINATION: CTA chest PE protocol DATE: 09/27/2023 17:58 INDICATION: Shortness of breath. TECHNIQUE: Computed tomography angiography (CTA) of the chest was performed with 100 mL Omnipaque-350 intravenous contrast timed to evaluate the pulmonary arteries. Coronal maximum intensity projection 3D-reconstructions were created by the technologist. Automated exposure control and iterative reconstruction technique were employed. The dose-length product was 1001.20 mGy-cm. COMPARISON: Chest CT 09/05/2023 FINDINGS: The lungs demonstrate mild atelectasis. There are a few scattered nodules with groundglass halos in the lungs measuring up to 5 mm. There is smooth septal thickening bilaterally, consistent mild pulmonary edema. There are small pleural effusions. Cardiomegaly is noted. There are coronary artery calcifications. There are changes of coronary artery bypass grafting. No pericardial effusion. There is no pulmonary embolus. There is an 11 mm cyst in the liver. There is thoracic kyphosis and mild spondylosis. IMPRESSION: 1. No pulmonary embolus. 2. Mild pulmonary edema with small pleural effusions. 3. Small pulmonary nodules with interval change in distribution, which may be a component of pulmonary edema or may be infection. Review of Systems Review of Systems: sob, leg swelling. Constitutional: Constitutional: Reports fatigue and Reports weakness Eyes: Eyes: Denies change in vision ENT: Denies dysphagia and Denies odynophagia Cardiovascular: Cardiovascular: Denies chest pain, Reports dyspnea on exertion, Reports orthopnea and Reports paroxysmal nocturnal dyspnea Respiratory: Respiratory: Denies cough and Reports wheezing Gastrointestinal: Gastrointestinal: Denies abdominal pain, Denies dyspepsia, Denies heartburn, Denies diarrhea, Denies nausea and Denies vomiting Genitourinary: Genitourinary: Denies dysuria Musculoskeletal: Musculoskeletal: Denies myalgias Integumentary/Breasts: Skin/Breast: Denies rash Neurologic: Denies focal weakness and Denies Sensory deficit (Neuro) Psychiatric: Psychiatric: Reports no additional psychiatric complaints and Reports as per HPI Endocrine: Endocrine: Denies cold intolerance, Denies heat int
[2023-09-27 20:57] VITALS: BP 170/72; PULSE 74; RESP 15; O2SAT 100
[2023-09-27 21:53] LABS: Troponin I 0.021 ng/mL (0.000-0.034)
[2023-09-28] VITALS (26 sets, daily range): BP systolic 150–224; BP diastolic 52–79; PULSE 67–84; RESP 18–22; TEMP 35.7–36.5; O2SAT 96–100; BMI 56.1; BMI 55.0
--- NOTE | 2023-09-28 | ECHO_ITS ---
Patient Info Name: Katlin Calles Age: 73 years : 1950 Gender: Female Ht: 65 in Wt: 335 lbs BSA: 2.74 m2 HR: 74 bpm BP: 150 / 52 mmHg Heart Rhythm: Sinus Rhythm Technical Quality: Good Exam Date: 09/28/2023 9:01 AM Exam Location: Echo Lab Patient Status: Outpatient Admit Date: 09/27/2023 Staff Ordering Physician: Alona Shaw MD Refinery Operator Assistant: Kavon Britt RDCS Attending Provider: Alona Shaw MD Referring Physician: Valeria MARROQUIN; Exam Type: CA echo dop color flow w con Study Info Indications - leg swelling Complete two-dimensional, color flow and Doppler transthoracic echocardiogram is performed with contrast to opacify the left ventricle and to improve the deliniation of the left ventricle endocardial borders. Left Ventricle Left ventricular chamber dimension is normal. Left ventricular systolic function is normal, estimated at 60-65%. There is moderate concentric increased left ventricular wall thickness. The left ventricular diastolic function is grade I diastolic dysfunction. Right Ventricle Right ventricular chamber dimension is normal. Left Atria Left atrial chamber dimension is mildly enlarged. Right Atria Right atrial chamber dimension is mildly enlarged. Aortic Valve The aortic valve is normal. Pulmonic Valve The pulmonic valve is not well visualized. Mitral Valve The mitral valve has normal leaflets. There is trace mitral valve regurgitation. Tricuspid Valve The tricuspid valve leaflets are normal. There is mild tricuspid valve regurgitation. Pericardium/Pleural The pericardium appears normal. Aorta The aortic root size at the sinus of Valsalva is normal. Left Ventricular Outflow Tract Name Value Normal LVOT 2D LVOT Diameter 1.96 cm LVOT Doppler LVOT Peak Gradient 6 mmHg LVOT Mean Gradient 4 mmHg LVOT VTI 30.82 cm LVOT VTI/AV VTI Ratio 0.78 LVOT Stroke Volume 92.59 ml LVOT CO 6.60 l/min LVOT CI 2.41 L/min/m2 Pulmonic Valve Name Value Normal RVOT Doppler RVOT Peak Gradient 3 mmHg PV Doppler PV Peak Gradient 6 mmHg Mitral Valve Name Value Normal MV Doppler MV Decel [place] 822.12 cm/s2 MV PHT 0 s MV Area (PHT) 3.83 cm2 4.00-5.00 MV Diastolic Function MV E Peak Velocity
--- NOTE | 2023-09-28 00:38 | ADMGEN ---
This patient, Katlin Calles, was admitted to IMU Room 205-01. Patient/family oriented to hospital policies and general routines including ID bracelet, bed and alarms, visiting hours, pain management, procedures, bathroom and other care routines, personal items, smoking policy, room service/diet, and visiting hours. Information on how to activate the Rapid Response Team has been discussed. Patient/Family are encouraged to report perceived risks to care and to ask questions if they do not understand what they are told or what they should do.
[2023-09-28 05:23] LABS: Troponin I 0.022 ng/mL (0.000-0.034)
[2023-09-28] MEDS: IPRATROPIUM 0.5 MG/ALBUTEROL SULFATE 2.5 MG AMPUL.NEB 3 ML INHALATION ×3 (07:29→20:27)
[2023-09-28] MEDS: FUROSEMIDE INJ 40 MG/4 ML VIAL IV PUSH (08:17)
[2023-09-28 08:31] LABS: Glucose Point of Care 224 mg/dl (65-105)
[2023-09-28] MEDS: PERFLUTREN LIPID MICROSPHERES 1.5 ML VIAL DILUTED TO 10 ML TOTAL VOLUME IV PUSH (09:20)
--- NOTE | 2023-09-28 10:33 | IVDEFINITY ---
Prior to administration of IV Definity the patient was educated on the risks and benefits of the imaging enhancing agent including potential adverse side effects. The patient verbalized understanding. Allergies were verified. No exclusion criteria were identified and at least one of the following inclusion criteria were met: 1) physician request, 2) patient technically difficult to image (per the [place] [employer] guidelines of two or more segments not discernable within the apical view), or 3) questionable left ventricular function. ?
[2023-09-28 12:32] LABS: Glucose Point of Care 253 mg/dl (65-105)
--- NOTE | 2023-09-28 14:01 | PC.NURSE ---
POC reviewed with Dr. Belcher that the pt is Diabetic et without Accucheck orders et given report on elevated blood glucose. V.O.R.B. Dr Belcher/ This RN 1.) ACHS Accuchecks questioned the need for SSI with no further interventions added at this time.
--- NOTE | 2023-09-28 14:02 | PM.IMPN ---
Progress Note: A&P Assessment and Plan (1) Lung infiltrate: Code(s): R91.8 - Other nonspecific abnormal finding of lung field Status: Acute (2) Type 2 diabetes mellitus with hyperglycemia: Code(s): E11.65 - Type 2 diabetes mellitus with hyperglycemia Status: Acute (3) Essential hypertension: Code(s): I10 - Essential (primary) hypertension Status: Acute (4) Chronic kidney disease, stage 3: Code(s): N18.3 - Chronic kidney disease, stage 3 (moderate) Status: Chronic (5) FILI (obstructive sleep apnea): Code(s): G47.33 - Obstructive sleep apnea (adult) (pediatric) Status: Acute (6) GERD (gastroesophageal reflux disease): Code(s): K21.9 - Gastro-esophageal reflux disease without esophagitis Status: Acute (7) COPD (chronic obstructive pulmonary disease): Code(s): J44.9 - Chronic obstructive pulmonary disease, unspecified Status: Acute (8) Insulin dependent type 2 diabetes mellitus: Code(s): E11.9 - Type 2 diabetes mellitus without complications; Z79.4 - 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 of 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 Status: Acute (9) Coronary artery disease: Code(s): I25.10 - Atherosclerotic heart disease of [place] coronary artery without angina pectoris Status: Acute (10) Morbid obesity with BMI of 45.0-49.9, adult: Code(s): E66.01 - Morbid (severe) obesity due to excess calories; Z68.42 - Body mass index [BMI] 45.0-49.9, adult Status: Acute Plan 73-year-old female with history of coronary artery disease [place] in December 2 needed 12 status post CABG hypothyroidism hyperlipidemia hypertension insulin-dependent type 2 diabetes-for edema CKD stage 3 congestive heart failure anemia requiring transfusion presented to the ED for chest pain and shortness of breath intermittently for the past 3 weeks. She also has diagnosis of FILI and a trial of CPAP. Stress test on 09/19/2023 reports it is revealed of blockage in 1 of her coronary arteries. She reported right-sided chest wall pain for the past 3 weeks intermittently. Sometimes the pain radiates down her bilateral arms. Associated shortness of breath and dry cough. She also reported lower extremity edema which he attributes to lymphedema. Worsening orthopnea and 20 lb weight gain in the past 3 weeks. She has been taking her Bumex as prescribed. She received DuoNeb in the ED with some improvement. Prior echocardiogram 02/16/2020 showed moderately increased LV wall thickness EF of 60-65% grade 2 diastolic dysfunction right atrial chamber mildly enlarged severe pulmonary hypertension with PA systolic pressure measuring 68 mm Hg. On ED evaluation she was hypertension is oxygenation was adequate. Laboratory evaluation showed normal WBC creatinine 1.6 BNP 1850 COVID RSV flu negative EKG with ST-T changes with no acute findings. Initial troponin within normal limits. Serial troponin remained negative. D-dimer elevated at 2.[address] was performed which showed no PE but showed mild pulmonary edema with small pleural effusions and small pulmonary nodules with interval changes in distribution which may be a component of pulmonary edema and or or may be an infection. She had mild wheezing on presented to the ED which improved with DuoNeb. She has been started on IV diuresis with Lasix IV b.i.d.. Suspected CHF exacerbation. For possible pneumonia she has also been restarted on Rocephin and azithromycin. 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 Leg swelling present. Denies any other complaints. Interval history: Still feels sh
--- NOTE | 2023-09-28 14:45 | PM.CNCAR ---
Assessment and Plan Assessment and plan (1) Morbid obesity with BMI of 45.0-49.9, adult: Code(s): E66.01 - Morbid (severe) obesity due to excess calories; Z68.42 - Body mass index [BMI] 45.0-49.9, adult Status: Acute (2) CHF exacerbation: Qualifiers: Heart failure type: unspecified Qualified Code(s): I50.9 - Heart failure, unspecified Code(s): I50.9 - Heart failure, unspecified Status: Acute Plan This is a 73-year-old woman with chronic coronary artery disease status post surgical revascularization in 2020. Because of worsening symptoms and progressive symptoms of dyspnea a recent nuclear stress test was done in the office which a is interpreted as showing evidence of multivessel ischemia. It is certainly also possible this is a false positive given her BMI of 55. It seems to me the majority of her complaints can easily be attributed to morbid obesity however it is clear that she has multivessel coronary disease and ischemia workup is now in progress. While she is in the hospital here I would like to give her some I would be Bumex for at least a couple of days should try to help with her swelling. We will not plan on bringing her to the photo lab [facility] here at [facility] given her massive obesity, comorbidities and the fact that she is already on the schedule for angiography at [facility]. Her biomarkers are negative there is no evidence of an acute coronary syndrome that would necessitate proceeding with angiography here at [facility] Earl Arcos MD [facility] History of Present Illness History of Present Illness Consult date/time: 09/28/23 14:45 Reason For Visit: CHF EXACERBATION Narrative: This is a 73-year-old woman I am seeing at the request of the hospitalist because of the diagnosis of CHF exacerbation. She is known to Dr. Sanchez of our practice but I do not believe I have seen this lady in the past. She has a history of chronic coronary artery disease and a history of diastolic left ventricular dysfunction by evaluation that has been done over the last several years in our office. She was found to have coronary artery disease when she presented to this hospital with ACS back in 2020. She was brought to the cardiac catheterization lab and found to have multivessel coronary disease including high-grade ostial stenosis of the LAD. She was referred to [facility] for surgical revascularization. She received an DANA graft to the LAD, a radial graft to the PDA and a saphenous vein graft to the OM. She has been seeing Dr. Sanchez since then and chronically has complaints of shortness of breath and variable amounts of lower extremity edema which has been attributed to morbid obesity and the concept that she also may have lymphedema. She has had recent stress tests and echocardiograms demonstrating normal left ventricular systolic function. During her most recent office visit she continued re complain of exertional dyspnea and so a Lexiscan nuclear stress test was done to ensure there was a ischemic burden. That study was done in our office on 09/28/2023. It was interpreted by my partner is showing evidence of an ejection fraction of 58% and there was evidence of severe multivessel ischemia with several ischemic defects being identified. Interpreting this of course has to be taken indigo account her BMI of 55. Because of these findings follow-up left heart catheterization was recommended and is currently scheduled to be done in the last week of this month over at [facility] as an outpatient.Her ongoing symptoms of shortness of breath and edema made her concerned and she came back to this hospital and was once again readmitted to the hospital. Upon coming into her room she does not appear to be and any distress.She is also reporting difficulty with early satiety bloating and difficulty beginning nauseated and bloating following eating small amounts of food. Review of Systems Cons
[2023-09-28 15:17] LABS: Basophils Percent Auto 0.6 % (0.2-1.2); Eosinophils Absolute Auto 0.2 K/mm3 (0-0.3); Eosinophils Percent Auto 2.3 % (0-4.4); Hematocrit 32.4 % (37.0-47.0); Hemoglobin 10.1 g/dL (12.0-15.0); Immature Granulocyte Absolute 0.02 K/mm3 (0.00-0.031); Immature Granulocyte Percent A 0.3 % (0-0.5); Immature Platelet Fraction Pct 10.3 % (0.9-11.2); Lymphocytes Absolute Auto 1.65 K/mm3 (0.9-3.2); Mean Corpuscular HGB Conc 31.2 g/dl (32-36); Mean Corpuscular Hemoglobin 30.1 pg (26-34); Mean Corpuscular Volume 96.7 fl (80-100); Monocytes Absolute Auto 0.9 K/mm3 (0.1-0.6); Monocytes Percent Auto 13.7 % (2.6-8.5); Neutrophils Absolute Auto 3.8 K/mm3 (1.3-6.7); Neutrophils Percent Auto 58.1 % (45.5-73.1); Platelet Count Result 153 k/mm3 (150-375); Red Blood Count 3.35 M/mm3 (4.2-5.4); Red Cell Distribution Width 16.8 % (11.5-14.5); White Blood Count 6.6 K/mm3 (4.5-10.0)
[2023-09-28 15:33] LABS: Alanine Aminotransferase 9 U/L (6-35); Albumin Level 3.5 g/dL (3.5-5.1); Alkaline Phosphatase 55 U/L (38-126); Anion Gap 1 mmol/L (8-16); Aspartate Amino Transferase 26 U/L (14-36); Bilirubin,Total 0.4 mg/dL (0.2-1.3); Blood Urea Nitrogen 27 mg/dL (7-17); Calcium 8.9 mg/dL (8.4-10.2); Carbon Dioxide 34 mmol/L (22-30); Chloride 102 mmol/L (98-107); Estimated CRCL calculation 33 ml/min; Estimated Glomerular Filt Rate 29; Glucose 305 mg/dL (65-110); Magnesium 1.7 mg/dL (1.6-2.3); Potassium 3.9 mmol/L (3.4-5.0); Sodium 137 mmol/L (137-145)
[2023-09-28 16:40] LABS: Glucose Point of Care 295 mg/dl (65-105)
[2023-09-28] MEDS: PREGABALIN (*CRX) 75 MG CAPSULE PO (16:46)
[2023-09-28] MEDS: POTASSIUM CHLORIDE 20 MEQ ER TABLET PO (16:46)
[2023-09-28] MEDS: KETOROLAC 0.5% OP SOLN 5 ML BOTTLE 1 DROP RIGHT EYE (16:47)
[2023-09-28] MEDS: BUMETANIDE INJ 2.5 MG/10 ML VIAL 2 MG IV PUSH (16:48)
[2023-09-28] MEDS: INSULIN ASPART (*BKC) 100 UNITS/ML 15 UNITS SUB-Q (16:48)
[2023-09-28] MEDS: ACETAMINOPHEN 325 MG TABLET 650 MG PO (17:05)
[2023-09-28 20:28] LABS: Glucose Point of Care 237 mg/dl (65-105)
[2023-09-28] MEDS: CEFDINIR 300 MG CAPSULE PO (21:11)
[2023-09-28] MEDS: METOPROLOL TARTRATE 12.5 MG TABLET PO (21:11)
[2023-09-28] MEDS: INSULIN GLARGINE (*BKC) 100 UNITS/ML 50 UNITS SUB-Q (21:12)
[2023-09-28] MEDS: METOPROLOL TARTRATE 25 MG TABLET PO (21:12)
[2023-09-28] MEDS: PANTOPRAZOLE 40 MG TABLET PO (21:13)
[2023-09-29] VITALS (26 sets, daily range): BP systolic 142–189; BP diastolic 55–68; PULSE 63–83; RESP 18–22; TEMP 35.7–36.4; O2SAT 94–100
[2023-09-29] MEDS: IPRATROPIUM 0.5 MG/ALBUTEROL SULFATE 2.5 MG AMPUL.NEB 3 ML INHALATION ×4 (01:54→20:15)
[2023-09-29 04:57] LABS: Basophils Percent Auto 0.5 % (0.2-1.2); Eosinophils Absolute Auto 0.2 K/mm3 (0-0.3); Eosinophils Percent Auto 3.2 % (0-4.4); Hemoglobin 9.8 g/dL (12.0-15.0); Immature Granulocyte Absolute 0.01 K/mm3 (0.00-0.031); Immature Granulocyte Percent A 0.2 % (0-0.5); Immature Platelet Fraction Pct 9.7 % (0.9-11.2); Lymphocytes Absolute Auto 1.69 K/mm3 (0.9-3.2); Lymphocytes Percent Auto 28.5 % (18.3-44.2); Mean Corpuscular HGB Conc 31.6 g/dl (32-36); Mean Corpuscular Hemoglobin 30.2 pg (26-34); Mean Corpuscular Volume 95.4 fl (80-100); Mean Platelet Volume 13.1 fl (7.4-10.4); Monocytes Absolute Auto 1.1 K/mm3 (0.1-0.6); Monocytes Percent Auto 17.7 % (2.6-8.5); Neutrophils Percent Auto 49.9 % (45.5-73.1); Platelet Count Result 152 k/mm3 (150-375); Red Blood Count 3.25 M/mm3 (4.2-5.4); Red Cell Distribution Width 16.6 % (11.5-14.5); White Blood Count 5.9 K/mm3 (4.5-10.0)
[2023-09-29 05:03] LABS: Alanine Aminotransferase 9 U/L (6-35); Albumin Level 3.2 g/dL (3.5-5.1); Alkaline Phosphatase 47 U/L (38-126); Anion Gap 0 mmol/L (8-16); Aspartate Amino Transferase 21 U/L (14-36); Bilirubin,Total 0.4 mg/dL (0.2-1.3); Blood Urea Nitrogen 27 mg/dL (7-17); Calcium 8.7 mg/dL (8.4-10.2); Carbon Dioxide 32 mmol/L (22-30); Chloride 105 mmol/L (98-107); Estimated CRCL calculation 33 ml/min; Estimated Glomerular Filt Rate 29; Glucose 123 mg/dL (65-110); Magnesium 1.7 mg/dL (1.6-2.3); Potassium 3.6 mmol/L (3.4-5.0); Sodium 137 mmol/L (137-145)
[2023-09-29 07:56] LABS: Glucose Point of Care 178 mg/dl (65-105)
[2023-09-29] MEDS: ASPIRIN 81 MG CHEWABLE TABLET PO (08:51)
[2023-09-29] MEDS: CLOPIDOGREL BISULFATE 75 MG TABLET PO (08:51)
[2023-09-29] MEDS: AZITHROMYCIN 250 MG TABLET 500 MG PO (08:51)
[2023-09-29] MEDS: IRBESARTAN 150 MG TABLET PO (08:51)
[2023-09-29] MEDS: FAMOTIDINE 20 MG TABLET 40 MG PO (08:51)
[2023-09-29] MEDS: METOPROLOL TARTRATE 25 MG TABLET PO ×2 (08:52→20:04)
[2023-09-29] MEDS: POTASSIUM CHLORIDE 20 MEQ ER TABLET PO ×2 (08:52→18:14)
[2023-09-29] MEDS: CEFDINIR 300 MG CAPSULE PO ×2 (08:52→20:05)
[2023-09-29] MEDS: PREGABALIN (*CRX) 75 MG CAPSULE PO ×3 (08:52→18:14)
[2023-09-29] MEDS: METOPROLOL TARTRATE 12.5 MG TABLET PO ×2 (08:53→20:04)
[2023-09-29] MEDS: INSULIN ASPART (*BKC) 100 UNITS/ML 15 UNITS SUB-Q (08:53)
[2023-09-29] MEDS: KETOROLAC 0.5% OP SOLN 5 ML BOTTLE 1 DROP RIGHT EYE ×3 (08:55→18:14)
[2023-09-29] MEDS: BUMETANIDE INJ 2.5 MG/10 ML VIAL 2 MG IV PUSH ×2 (09:02→18:30)
[2023-09-29] MEDS: ACETAMINOPHEN 325 MG TABLET 650 MG PO ×2 (09:05→20:03)
--- NOTE | 2023-09-29 09:49 | PM.PNCARD ---
Progress Note: A&P Assessment and Plan (1) Acute on chronic heart failure with preserved ejection fraction: Code(s): I50.33 - Acute on chronic diastolic (congestive) heart failure Status: Acute Assessment and Plan: Echocardiogram 09/27 with LVEF 60-65%, grade 1 diastolic dysfunction, mild biatrial enlargement, mild tricupsid regurgitation. Continue diuresis with IV Bumex. Will start Jardiance 10mg once daily. If her blood pressures remain elevated, will plan to add Spironolactone. (2) Coronary artery disease: Code(s): I25.10 - Atherosclerotic heart disease of [place] coronary artery without angina pectoris Status: Acute Assessment and Plan: Stable. Scheduled for outpatient cardiac catheterization at [facility]. Does not need inpatient cardiac cath here. Continue ASA, Plavix. (3) Chronic kidney disease, stage 3: Code(s): N18.30 - Chronic kidney disease, stage 3 unspecified Status: Acute Assessment and Plan: Monitor renal function closely (4) Morbid obesity with BMI of 45.0-49.9, adult: Code(s): E66.01 - Morbid (severe) obesity due to excess calories; Z68.42 - Body mass index [BMI] 45.0-49.9, adult Status: Acute Assessment and Plan: Needs to lose weight. Consider weight loss medication (such as Ozempic) as an outpatient. (5) Type 2 diabetes mellitus with hyperglycemia: Code(s): E11.65 - Type 2 diabetes mellitus with hyperglycemia Status: Acute Assessment and Plan: Management as per primary team. (6) Essential hypertension: Code(s): I10 - Essential (primary) hypertension Status: Acute Assessment and Plan: Continue Bumex, Metoprolol. If her blood pressures remain elevated, will plan to add Spironolactone. (7) Dyslipidemia: Code(s): E78.5 - Hyperlipidemia, unspecified Status: Acute Assessment and Plan: Has statin intolerance. Subjective Date/time seen: 09/29/23 09:49 Interval history: Reason for visit: Acute on chronic diastolic heart failure HPI: This is a 73-year-old woman I am seeing at the request of the hospitalist because of the diagnosis of CHF exacerbation.? She is known to Dr. Sanchez of our practice but I do not believe I have seen this lady in the past.? She has a history of chronic coronary artery disease and a history of diastolic left ventricular dysfunction by evaluation that has been done over the last several years in our office.? She was found to have coronary artery disease when she presented to this hospital with ACS back in 2020.? She was brought to the cardiac catheterization lab and found to have multivessel coronary disease including high-grade ostial stenosis of the LAD.? She was referred to [facility] for surgical revascularization.? She received an DANA graft to the LAD, a radial graft to the PDA and a saphenous vein graft to the OM.? She has been seeing Dr. Sanchez since then and chronically has complaints of shortness of breath and variable amounts of lower extremity edema which has been attributed to morbid obesity and the concept that she also may have lymphedema.? She has had recent stress tests and echocardiograms demonstrating normal left ventricular systolic function.? During her most recent office visit she continued re complain of exertional dyspnea and so a Lexiscan nuclear stress test was done to ensure there was a ischemic burden.? That study was done in our office on 09/28/2023.? It was interpreted by my partner is showing evidence of an ejection fraction of 58% and there was evidence of severe multivessel ischemia with several ischemic defects being identified.? Interpreting this of course has to be taken indigo account her BMI of 55.? Because of these findings follow-up left heart catheterization was recommended and is currently scheduled to be done in the last week of this month over at [facility] as an outpatient.Her ongoing symptoms of shortness of
[2023-09-29 12:01] LABS: Glucose Point of Care 92 mg/dl (65-105)
[2023-09-29] MEDS: EMPAGLIFLOZIN 10 MG TABLET PO (12:33)
--- NOTE | 2023-09-29 13:18 | PM.IMPN ---
Progress Note: A&P Assessment and Plan (1) Lung infiltrate: Code(s): R91.8 - Other nonspecific abnormal finding of lung field Status: Acute (2) Type 2 diabetes mellitus with hyperglycemia: Code(s): E11.65 - Type 2 diabetes mellitus with hyperglycemia Status: Acute (3) Essential hypertension: Code(s): I10 - Essential (primary) hypertension Status: Acute (4) Chronic kidney disease, stage 3: Code(s): N18.3 - Chronic kidney disease, stage 3 (moderate) Status: Chronic (5) FILI (obstructive sleep apnea): Code(s): G47.33 - Obstructive sleep apnea (adult) (pediatric) Status: Acute (6) GERD (gastroesophageal reflux disease): Code(s): K21.9 - Gastro-esophageal reflux disease without esophagitis Status: Acute (7) COPD (chronic obstructive pulmonary disease): Code(s): J44.9 - Chronic obstructive pulmonary disease, unspecified Status: Acute (8) Insulin dependent type 2 diabetes mellitus: Code(s): E11.9 - Type 2 diabetes mellitus without complications; 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.4 - 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 Status: Acute (9) Coronary artery disease: Code(s): I25.10 - Atherosclerotic heart disease of [place] coronary artery without angina pectoris Status: Acute (10) Morbid obesity with BMI of 45.0-49.9, adult: Code(s): E66.01 - Morbid (severe) obesity due to excess calories; Z68.42 - Body mass index [BMI] 45.0-49.9, adult Status: Acute Plan 73-year-old female with history of coronary artery disease [place] in December 2 needed 12 status post CABG hypothyroidism hyperlipidemia hypertension insulin-dependent type 2 diabetes-for edema CKD stage 3 congestive heart failure anemia requiring transfusion presented to the ED for chest pain and shortness of breath intermittently for the past 3 weeks. She also has diagnosis of FILI and a trial of CPAP. Stress test on 09/19/2023 reports it is revealed of blockage in 1 of her coronary arteries. She reported right-sided chest wall pain for the past 3 weeks intermittently. Sometimes the pain radiates down her bilateral arms. Associated shortness of breath and dry cough. She also reported lower extremity edema which he attributes to lymphedema. Worsening orthopnea and 20 lb weight gain in the past 3 weeks. She has been taking her Bumex as prescribed. She received DuoNeb in the ED with some improvement. Prior echocardiogram 02/16/2020 showed moderately increased LV wall thickness EF of 60-65% grade 2 diastolic dysfunction right atrial chamber mildly enlarged severe pulmonary hypertension with PA systolic pressure measuring 68 mm Hg. On ED evaluation she was hypertension is oxygenation was adequate. Laboratory evaluation showed normal WBC creatinine 1.6 BNP 1850 COVID RSV flu negative EKG with ST-T changes with no acute findings. Initial troponin within normal limits. Serial troponin remained negative. D-dimer elevated at 2.[address] was performed which showed no PE but showed mild pulmonary edema with small pleural effusions and small pulmonary nodules with interval changes in distribution which may be a component of pulmonary edema and or or may be an infection. She had mild wheezing on presented to the ED which improved with DuoNeb. She has been started on IV diuresis with Lasix IV b.i.d.. Suspected CHF exacerbation. This is been switched to Bumex IV renal function stable with diuresis. Negative balance continue to monitor still volume overloaded for possible pneumonia she has also been restarted on Rocephin and azithromycin. This has been switched to oral cefdinir and azithromycin. Echo with EF 60-65% moderate concentric increased left ventricular wall thickness grade 1 diastolic dysfunction. 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
[2023-09-29 16:49] LABS: Glucose Point of Care 82 mg/dl (65-105)
--- NOTE | 2023-09-29 18:26 | PC.NURSE ---
The pt is declining the intervention of Rocephin et requesting a PO ABX. Education given the POC. Dr. Aguirre was given report on events with yesterday et today. Clarification obtained on the need to continue Rocephin T.O.R.B./ THIS RN 1 . D/ C Edel from the [facility]
[2023-09-29] MEDS: PANTOPRAZOLE 40 MG TABLET PO (20:04)
[2023-09-29 20:21] LABS: Glucose Point of Care 140 mg/dl (65-105)
[2023-09-30] VITALS (24 sets, daily range): BP systolic 131–157; BP diastolic 47–71; PULSE 62–82; RESP 16–20; TEMP 36–36.5; O2SAT 93–100
[2023-09-30] MEDS: IPRATROPIUM 0.5 MG/ALBUTEROL SULFATE 2.5 MG AMPUL.NEB 3 ML INHALATION ×4 (01:37→20:11)
--- NOTE | 2023-09-30 01:55 | PC.NURSE ---
Daylight Savings Time For Daylight Savings Time Ending in the Fall - Clocks are moved back. For Daylight Savings Time Beginning in the Spring - Clocks are moved ahead. For [facility], the time of change occurs at 0200 hrs. Time is taken from the medical observer. This entry on the patient's chart recognizes the change in time reflected during documentation. Example: 2 entries for vital signs may be charted for 0200 hrs.
[2023-09-30 04:40] LABS: Basophils Percent Auto 0.5 % (0.2-1.2); Eosinophils Absolute Auto 0.2 K/mm3 (0-0.3); Eosinophils Percent Auto 2.8 % (0-4.4); Hemoglobin 9.8 g/dL (12.0-15.0); Immature Granulocyte Absolute 0.01 K/mm3 (0.00-0.031); Immature Granulocyte Percent A 0.1 % (0-0.5); Lymphocytes Absolute Auto 1.82 K/mm3 (0.9-3.2); Lymphocytes Percent Auto 23.3 % (18.3-44.2); Mean Corpuscular HGB Conc 31.6 g/dl (32-36); Mean Corpuscular Hemoglobin 30.2 pg (26-34); Mean Corpuscular Volume 95.7 fl (80-100); Mean Platelet Volume 12.6 fl (7.4-10.4); Monocytes Absolute Auto 1.1 K/mm3 (0.1-0.6); Monocytes Percent Auto 14.5 % (2.6-8.5); Neutrophils Absolute Auto 4.6 K/mm3 (1.3-6.7); Neutrophils Percent Auto 58.8 % (45.5-73.1); Platelet Count Result 163 k/mm3 (150-375); Red Blood Count 3.24 M/mm3 (4.2-5.4); Red Cell Distribution Width 16.9 % (11.5-14.5); White Blood Count 7.8 K/mm3 (4.5-10.0)
[2023-09-30 04:53] LABS: Alanine Aminotransferase 9 U/L (6-35); Albumin Level 3.3 g/dL (3.5-5.1); Alkaline Phosphatase 51 U/L (38-126); Anion Gap 3 mmol/L (8-16); Aspartate Amino Transferase 24 U/L (14-36); Bilirubin,Total 0.4 mg/dL (0.2-1.3); Blood Urea Nitrogen 37 mg/dL (7-17); Calcium 8.7 mg/dL (8.4-10.2); Carbon Dioxide 31 mmol/L (22-30); Chloride 104 mmol/L (98-107); Estimated CRCL calculation 29 ml/min; Estimated Glomerular Filt Rate 25; Glucose 187 mg/dL (65-110); Magnesium 1.7 mg/dL (1.6-2.3); Potassium 4.2 mmol/L (3.4-5.0); Sodium 138 mmol/L (137-145)
[2023-09-30 08:39] LABS: Glucose Point of Care 218 mg/dl (65-105)
[2023-09-30] MEDS: BUMETANIDE INJ 2.5 MG/10 ML VIAL 2 MG IV PUSH (09:06)
[2023-09-30] MEDS: IRBESARTAN 150 MG TABLET PO (09:07)
[2023-09-30] MEDS: EMPAGLIFLOZIN 10 MG TABLET PO (09:07)
[2023-09-30] MEDS: CEFDINIR 300 MG CAPSULE PO ×2 (09:07→21:31)
[2023-09-30] MEDS: METOPROLOL TARTRATE 12.5 MG TABLET PO ×2 (09:07→21:32)
[2023-09-30] MEDS: CLOPIDOGREL BISULFATE 75 MG TABLET PO (09:07)
[2023-09-30] MEDS: AZITHROMYCIN 250 MG TABLET 500 MG PO (09:07)
[2023-09-30] MEDS: FAMOTIDINE 20 MG TABLET 40 MG PO (09:07)
[2023-09-30] MEDS: POTASSIUM CHLORIDE 20 MEQ ER TABLET PO ×2 (09:08→17:55)
[2023-09-30] MEDS: METOPROLOL TARTRATE 25 MG TABLET PO ×2 (09:08→21:32)
[2023-09-30] MEDS: PREGABALIN (*CRX) 75 MG CAPSULE PO ×3 (09:08→17:55)
[2023-09-30] MEDS: KETOROLAC 0.5% OP SOLN 5 ML BOTTLE 1 DROP RIGHT EYE ×3 (09:09→17:55)
[2023-09-30] MEDS: ASPIRIN 81 MG CHEWABLE TABLET PO (09:11)
[2023-09-30] MEDS: ERGOCALCIFEROL 50,000 UNITS CAPSULE 50000 UNITS PO (09:12)
[2023-09-30] MEDS: INSULIN ASPART (*BKC) 100 UNITS/ML 15 UNITS SUB-Q ×3 (09:12→17:55)
--- NOTE | 2023-09-30 11:01 | PM.PNCARD ---
Progress Note: A&P Assessment and Plan (1) Acute on chronic heart failure with preserved ejection fraction: Code(s): I50.33 - Acute on chronic diastolic (congestive) heart failure Status: Acute Assessment and Plan: Echocardiogram 09/27 with LVEF 60-65%, grade 1 diastolic dysfunction, mild biatrial enlargement, mild tricupsid regurgitation. Her SCr has increased from 1.6 on 09/26 to now 2.3. Will back off on IV Bumex to once daily instead of BID. If her SCr continues to worsen tomorrow, may need to hold IV diuresis. Started Jardiance 10mg once daily. If her blood pressures remain elevated, will plan to add Spironolactone (once renal function stablizes). (2) Coronary artery disease: Code(s): I25.10 - Atherosclerotic heart disease of [place] coronary artery without angina pectoris Status: Acute Assessment and Plan: Stable. Scheduled for outpatient cardiac catheterization at [facility]. Does not need inpatient cardiac cath here. Continue ASA, Plavix. (3) Chronic kidney disease, stage 3: Code(s): N18.30 - Chronic kidney disease, stage 3 unspecified Status: Acute Assessment and Plan: Monitor renal function closely (4) Morbid obesity with BMI of 45.0-49.9, adult: Code(s): E66.01 - Morbid (severe) obesity due to excess calories; Z68.42 - Body mass index [BMI] 45.0-49.9, adult Status: Acute Assessment and Plan: Needs to lose weight. Consider weight loss medication (such as Ozempic) as an outpatient. (5) Type 2 diabetes mellitus with hyperglycemia: Code(s): E11.65 - Type 2 diabetes mellitus with hyperglycemia Status: Acute Assessment and Plan: Management as per primary team. (6) Essential hypertension: Code(s): I10 - Essential (primary) hypertension Status: Acute Assessment and Plan: Continue Bumex, Metoprolol. If her blood pressures remain elevated, will plan to add Spironolactone. (7) Dyslipidemia: Code(s): E78.5 - Hyperlipidemia, unspecified Status: Acute Assessment and Plan: Has statin intolerance. Subjective Date/time seen: 09/30/23 11:01 Interval history: Reason for visit: Acute on chronic diastolic heart failure HPI: This is a 73-year-old woman I am seeing at the request of the hospitalist because of the diagnosis of CHF exacerbation.? She is known to Dr. Sanchez of our practice but I do not believe I have seen this lady in the past.? She has a history of chronic coronary artery disease and a history of diastolic left ventricular dysfunction by evaluation that has been done over the last several years in our office.? She was found to have coronary artery disease when she presented to this hospital with ACS back in 2020.? She was brought to the cardiac catheterization lab and found to have multivessel coronary disease including high-grade ostial stenosis of the LAD.? She was referred to [facility] for surgical revascularization.? She received an DANA graft to the LAD, a radial graft to the PDA and a saphenous vein graft to the OM.? She has been seeing Dr. Sanchez since then and chronically has complaints of shortness of breath and variable amounts of lower extremity edema which has been attributed to morbid obesity and the concept that she also may have lymphedema.? She has had recent stress tests and echocardiograms demonstrating normal left ventricular systolic function.? During her most recent office visit she continued re complain of exertional dyspnea and so a Lexiscan nuclear stress test was done to ensure there was a ischemic burden.? That study was done in our office on 09/28/2023.? It was interpreted by my partner is showing evidence of an ejection fraction of 58% and there was evidence of severe multivessel ischemia with several ischemic defects being identified.? Interpreting this of course has to be taken indigo account her BMI of 55.? Because of these findings follow-up left heart catheteri
--- NOTE | 2023-09-30 12:21 | PM.IMPN ---
Progress Note: A&P Assessment and Plan (1) Lung infiltrate: Code(s): R91.8 - Other nonspecific abnormal finding of lung field Status: Acute (2) Type 2 diabetes mellitus with hyperglycemia: Code(s): E11.65 - Type 2 diabetes mellitus with hyperglycemia Status: Acute (3) Essential hypertension: Code(s): I10 - Essential (primary) hypertension Status: Acute (4) Chronic kidney disease, stage 3: Code(s): N18.3 - Chronic kidney disease, stage 3 (moderate) Status: Chronic (5) FILI (obstructive sleep apnea): Code(s): G47.33 - Obstructive sleep apnea (adult) (pediatric) Status: Acute (6) GERD (gastroesophageal reflux disease): Code(s): K21.9 - Gastro-esophageal reflux disease without esophagitis Status: Acute (7) COPD (chronic obstructive pulmonary disease): Code(s): J44.9 - Chronic obstructive pulmonary disease, unspecified Status: Acute (8) Insulin dependent type 2 diabetes mellitus: Code(s): E11.9 - Type 2 diabetes mellitus without complications; Z79.4 - intermission coordinator (current) use of insulin Status: Acute (9) Coronary artery disease: Code(s): I25.10 - Atherosclerotic heart disease of [place] coronary artery without angina pectoris Status: Acute (10) Morbid obesity with BMI of 45.0-49.9, adult: Code(s): E66.01 - Morbid (severe) obesity due to excess calories; Z68.42 - Body mass index [BMI] 45.0-49.9, adult Status: Acute Plan 73-year-old female with history of coronary artery disease [place] in December 2 needed 12 status post CABG hypothyroidism hyperlipidemia hypertension insulin-dependent type 2 diabetes-for edema CKD stage 3 congestive heart failure anemia requiring transfusion presented to the ED for chest pain and shortness of breath intermittently for the past 3 weeks. She also has diagnosis of FILI and a trial of CPAP. Stress test on 09/19/2023 reports it is revealed of blockage in 1 of her coronary arteries. She reported right-sided chest wall pain for the past 3 weeks intermittently. Sometimes the pain radiates down her bilateral arms. Associated shortness of breath and dry cough. She also reported lower extremity edema which he attributes to lymphedema. Worsening orthopnea and 20 lb weight gain in the past 3 weeks. She has been taking her Bumex as prescribed. She received DuoNeb in the ED with some improvement. Prior echocardiogram 02/16/2020 showed moderately increased LV wall thickness EF of 60-65% grade 2 diastolic dysfunction right atrial chamber mildly enlarged severe pulmonary hypertension with PA systolic pressure measuring 68 mm Hg. On ED evaluation she was hypertension is oxygenation was adequate. Laboratory evaluation showed normal WBC creatinine 1.6 BNP 1850 COVID RSV flu negative EKG with ST-T changes with no acute findings. Initial troponin within normal limits. Serial troponin remained negative. D-dimer elevated at 2.[address] was performed which showed no PE but showed mild pulmonary edema with small pleural effusions and small pulmonary nodules with interval changes in distribution which may be a component of pulmonary edema and or or may be an infection. She had mild wheezing on presented to the ED which improved with DuoNeb. She has been started on IV diuresis with Lasix IV b.i.d.. Suspected CHF exacerbation. This is been switched to Bumex IV renal function stable with diuresis. Negative balance. His creatinine has bumped up Bumex dose has been reduced by office manager. Will get venous duplex continue to monitor still volume overloaded for possible pneumonia she has also been restarted on Rocephin and azithromycin. This has been switched to oral cefdinir and azithromycin. Echo with EF 60-65% moderate concentric increased left ventricular wall thickness grade 1 diastolic dysfunction. 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
--- NOTE | 2023-09-30 15:02 | PCPTNOTE ---
Attempted PT evaluation, pt getting ultrasound at this time. Will follow.
[2023-09-30] MEDS: amLODIPine BESYLATE 5 MG TABLET PO (15:48)
[2023-09-30 16:37] LABS: Glucose Point of Care 168 mg/dl (65-105)
[2023-09-30 16:37] LABS: Glucose Point of Care 219 mg/dl (65-105)
[2023-09-30] MEDS: ENOXAPARIN 40 MG/0.4 ML SYRINGE SUB-Q (17:55)
[2023-09-30] MEDS: CYCLOBENZAPRINE HCL 5 MG TABLET PO (17:55)
[2023-09-30 20:40] LABS: Glucose Point of Care 194 mg/dl (65-105)
[2023-09-30] MEDS: PANTOPRAZOLE 40 MG TABLET PO (21:31)
[2023-09-30] MEDS: INSULIN GLARGINE (*BKC) 100 UNITS/ML 50 UNITS SUB-Q (21:32)
[2023-10-01] VITALS (22 sets, daily range): BP systolic 126–152; BP diastolic 40–77; PULSE 62–97; RESP 16–20; TEMP 36.1–36.9; O2SAT 92–100
[2023-10-01] MEDS: IPRATROPIUM 0.5 MG/ALBUTEROL SULFATE 2.5 MG AMPUL.NEB 3 ML INHALATION ×4 (03:26→19:19)
[2023-10-01 04:50] LABS: Basophils Percent Auto 0.5 % (0.2-1.2); Eosinophils Absolute Auto 0.3 K/mm3 (0-0.3); Eosinophils Percent Auto 3.8 % (0-4.4); Hematocrit 33.3 % (37.0-47.0); Hemoglobin 10.4 g/dL (12.0-15.0); Immature Granulocyte Absolute 0.01 K/mm3 (0.00-0.031); Immature Granulocyte Percent A 0.2 % (0-0.5); Lymphocytes Absolute Auto 1.71 K/mm3 (0.9-3.2); Lymphocytes Percent Auto 26.2 % (18.3-44.2); Mean Corpuscular HGB Conc 31.2 g/dl (32-36); Mean Corpuscular Hemoglobin 30.3 pg (26-34); Mean Corpuscular Volume 97.1 fl (80-100); Mean Platelet Volume 13.3 fl (7.4-10.4); Monocytes Percent Auto 15.6 % (2.6-8.5); Neutrophils Absolute Auto 3.5 K/mm3 (1.3-6.7); Neutrophils Percent Auto 53.7 % (45.5-73.1); Platelet Count Result 167 k/mm3 (150-375); Red Blood Count 3.43 M/mm3 (4.2-5.4); White Blood Count 6.5 K/mm3 (4.5-10.0)
[2023-10-01 04:57] LABS: Alanine Aminotransferase 10 U/L (6-35); Albumin Level 3.4 g/dL (3.5-5.1); Alkaline Phosphatase 52 U/L (38-126); Anion Gap 4 mmol/L (8-16); Aspartate Amino Transferase 23 U/L (14-36); Bilirubin,Total 0.4 mg/dL (0.2-1.3); Blood Urea Nitrogen 42 mg/dL (7-17); Calcium 8.8 mg/dL (8.4-10.2); Carbon Dioxide 33 mmol/L (22-30); Chloride 102 mmol/L (98-107); Estimated CRCL calculation 25 ml/min; Estimated Glomerular Filt Rate 21; Glucose 192 mg/dL (65-110); Magnesium 1.9 mg/dL (1.6-2.3); Potassium 4.2 mmol/L (3.4-5.0); Sodium 139 mmol/L (137-145)
[2023-10-01 08:02] LABS: Glucose Point of Care 146 mg/dl (65-105)
[2023-10-01] MEDS: CEFDINIR 300 MG CAPSULE PO (09:45)
[2023-10-01] MEDS: PREGABALIN (*CRX) 75 MG CAPSULE PO ×3 (09:45→17:18)
[2023-10-01] MEDS: amLODIPine BESYLATE 5 MG TABLET PO (09:45)
[2023-10-01] MEDS: CLOPIDOGREL BISULFATE 75 MG TABLET PO (09:45)
[2023-10-01] MEDS: FAMOTIDINE 20 MG TABLET 40 MG PO (09:46)
[2023-10-01] MEDS: METOPROLOL TARTRATE 25 MG TABLET PO ×2 (09:46→20:56)
[2023-10-01] MEDS: INSULIN ASPART (*BKC) 100 UNITS/ML 15 UNITS SUB-Q ×3 (09:46→17:18)
[2023-10-01] MEDS: ASPIRIN 81 MG CHEWABLE TABLET PO (09:46)
[2023-10-01] MEDS: METOPROLOL TARTRATE 12.5 MG TABLET PO ×2 (09:46→20:56)
[2023-10-01] MEDS: AZITHROMYCIN 250 MG TABLET 500 MG PO (09:46)
[2023-10-01] MEDS: ENOXAPARIN 40 MG/0.4 ML SYRINGE SUB-Q (09:46)
[2023-10-01] MEDS: POTASSIUM CHLORIDE 20 MEQ ER TABLET PO ×2 (09:46→17:18)
[2023-10-01] MEDS: EMPAGLIFLOZIN 10 MG TABLET PO (09:47)
[2023-10-01] MEDS: KETOROLAC 0.5% OP SOLN 5 ML BOTTLE 1 DROP RIGHT EYE ×3 (09:53→17:18)
--- NOTE | 2023-10-01 10:17 | PM.PNCARD ---
Progress Note: A&P Assessment and Plan (1) Acute on chronic heart failure with preserved ejection fraction: Code(s): I50.33 - Acute on chronic diastolic (congestive) heart failure Status: Acute Assessment and Plan: Echocardiogram 09/27 with LVEF 60-65%, grade 1 diastolic dysfunction, mild biatrial enlargement, mild tricupsid regurgitation. Her SCr has increased from 1.6 on 09/26 to now 2.7. Holding IV diuresis for now. Started Jardiance 10mg once daily. If her blood pressures remain elevated, will plan to add Spironolactone (once renal function stablizes). (2) Coronary artery disease: Code(s): I25.10 - Atherosclerotic heart disease of [place] coronary artery without angina pectoris Status: Acute Assessment and Plan: Stable. Scheduled for outpatient cardiac catheterization at [facility]. Does not need inpatient cardiac cath here. Continue ASA, Plavix. (3) Chronic kidney disease, stage 3: Code(s): N18.30 - Chronic kidney disease, stage 3 unspecified Status: Acute Assessment and Plan: Monitor renal function closely (4) Morbid obesity with BMI of 45.0-49.9, adult: Code(s): E66.01 - Morbid (severe) obesity due to excess calories; Z68.42 - Body mass index [BMI] 45.0-49.9, adult Status: Acute Assessment and Plan: Needs to lose weight. Consider weight loss medication (such as Ozempic) as an outpatient. (5) Type 2 diabetes mellitus with hyperglycemia: Code(s): E11.65 - Type 2 diabetes mellitus with hyperglycemia Status: Acute Assessment and Plan: Management as per primary team. (6) Essential hypertension: Code(s): I10 - Essential (primary) hypertension Status: Acute Assessment and Plan: Continue Bumex, Metoprolol. If her blood pressures remain elevated, will plan to add Spironolactone. (7) Dyslipidemia: Code(s): E78.5 - Hyperlipidemia, unspecified Status: Acute Assessment and Plan: Has statin intolerance. Subjective Date/time seen: 10/01/23 10:17 Interval history: Reason for visit: Acute on chronic diastolic heart failure HPI: This is a 73-year-old woman I am seeing at the request of the hospitalist because of the diagnosis of CHF exacerbation.? She is known to Dr. Sanchez of our practice but I do not believe I have seen this lady in the past.? She has a history of chronic coronary artery disease and a history of diastolic left ventricular dysfunction by evaluation that has been done over the last several years in our office.? She was found to have coronary artery disease when she presented to this hospital with ACS back in 2020.? She was brought to the cardiac catheterization lab and found to have multivessel coronary disease including high-grade ostial stenosis of the LAD.? She was referred to [facility] for surgical revascularization.? She received an DANA graft to the LAD, a radial graft to the PDA and a saphenous vein graft to the OM.? She has been seeing Dr. Sanchez since then and chronically has complaints of shortness of breath and variable amounts of lower extremity edema which has been attributed to morbid obesity and the concept that she also may have lymphedema.? She has had recent stress tests and echocardiograms demonstrating normal left ventricular systolic function.? During her most recent office visit she continued re complain of exertional dyspnea and so a Lexiscan nuclear stress test was done to ensure there was a ischemic burden.? That study was done in our office on 09/28/2023.? It was interpreted by my partner is showing evidence of an ejection fraction of 58% and there was evidence of severe multivessel ischemia with several ischemic defects being identified.? Interpreting this of course has to be taken indigo account her BMI of 55.? Because of these findings follow-up left heart catheterization was recommended and is currently scheduled to be done in the last week of this month over a
[2023-10-01 11:31] LABS: Glucose Point of Care 248 mg/dl (65-105)
--- NOTE | 2023-10-01 13:42 | PM.CNNEP ---
Assessment and Plan Assessment and plan (1) Chronic kidney disease, stage 3b: Code(s): N18.32 - Chronic kidney disease, stage 3b Status: Acute Assessment and Plan: The patient has chronic kidney disease stage IIIB. Her GFR ranges in the low 30s generally. This is from diabetes and hypertension. Sleep apnea may be playing a role as well. The patient also has acute kidney injury. Her GFR peter after she got the contrast. She also has been getting diuresed. So probably these are combining to cause her creatinine to rise. There are other causes kidney failure as well including rhabdomyolysis, obstruction, infiltrative diseases, and inflammation. Think these are all less likely. Will check urine electrolytes, CPK, a renal ultrasound and go from there. The patient is getting active diuresis. She still has quite a bit of swelling on. Dr Lopez because of the rising creatinine and then resume the higher dose once the creatinine starts improving. (2) Essential hypertension: Code(s): I10 - Essential (primary) hypertension Status: Acute Assessment and Plan: Blood pressure is doing better. (3) Type 2 diabetes mellitus with hyperglycemia: Code(s): E11.65 - Type 2 diabetes mellitus with hyperglycemia Status: Acute Assessment and Plan: Patient is on Accu-Cheks and sliding-scale insulin. Management per hospitalists. (4) Edema: Code(s): R60.9 - Edema, unspecified Status: Acute Assessment and Plan: She has quite a bit of swelling. This is most likely due salt retention because of the kidneys but also because of sleep apnea. (5) Obstructive sleep apnea: Onset Date: ~04/2020 Code(s): G47.33 - Obstructive sleep apnea (adult) (pediatric) Status: Acute Assessment and Plan: The patient is getting a CPAP at home. She is on a CPAP here in the hospital as well. History of Present Illness Reason for Consult Consult date: 10/01/23 Chief Complaint Chief complaint: CHF EXACERBATION History of Present Illness Narrative: Katlin is a very pleasant 73-year-old lady who has multiple medical problems including chronic kidney disease, coronary disease, coronary artery bypass graft, sleep apnea, diabetes, hypertension, high body mass index. The patient came to the hospital because she had shortness of breath and worsened swelling. She was seen in the ER. Chest x-ray showed a left pleural effusion. They were worried about pulmonary embolism and so a CT angio was done which showed no PE. The patient was admitted. She was given diuretics. Her creatinine on admission was her baseline at 1.6. Gradually it has risen to a current value of 2.7 so renal consultation was requested. Patient shows she has not taken any on steroidal anti-inflammatory agents. She has not had any bloody urine foamy urine kidney stones or bladder infections. Her renal function resulted in a creatinine of somewhere between 1.6 and about 2.4 over the last few years. She has had evaluation for underlying causes which were negative. It is felt that this is due to blood pressure and diabetes. Her edema is felt to be due to poor salt excretion by her kidneys but also from sleep apnea. She did have a sleep test which showed sleep apnea and so she is in the middle of getting her machine at home right now. Her latest echo shows normal LV function, some increase in left ventricular wall thickness, mildly enlarged right atrium but normal right ventricle. The PA pressure is mildly elevated at 45. Review of Systems Constitutional: Constitutional: Reports no additional constitutional complaints Eyes: Eyes: Reports no additional eye complaints ENT: Reports system reviewed and no additional complaints, except as documented Cardiovascular: Cardiovascular: Reports no additional cardiovascular complaints Respiratory: Respiratory: Reports no additional respiratory complaints Gastrointestinal: Ga
[2023-10-01 14:32] LABS: Creatine Kinase 238 U/L (30-135)
--- NOTE | 2023-10-01 15:08 | PM.IMPN ---
Progress Note: A&P Assessment and Plan (1) Lung infiltrate: Code(s): R91.8 - Other nonspecific abnormal finding of lung field Status: Acute (2) Type 2 diabetes mellitus with hyperglycemia: Code(s): E11.65 - Type 2 diabetes mellitus with hyperglycemia Status: Acute (3) Essential hypertension: Code(s): I10 - Essential (primary) hypertension Status: Acute (4) Chronic kidney disease, stage 3: Code(s): N18.3 - Chronic kidney disease, stage 3 (moderate) Status: Chronic (5) FILI (obstructive sleep apnea): Code(s): G47.33 - Obstructive sleep apnea (adult) (pediatric) Status: Acute (6) GERD (gastroesophageal reflux disease): Code(s): K21.9 - Gastro-esophageal reflux disease without esophagitis Status: Acute (7) COPD (chronic obstructive pulmonary disease): Code(s): J44.9 - Chronic obstructive pulmonary disease, unspecified Status: Acute (8) Insulin dependent type 2 diabetes mellitus: Code(s): E11.9 - Type 2 diabetes mellitus without complications; Z79.4 - exterminator termite (current) use of insulin Status: Acute (9) Coronary artery disease: Code(s): I25.10 - Atherosclerotic heart disease of [place] coronary artery without angina pectoris Status: Acute (10) Morbid obesity with BMI of 45.0-49.9, adult: Code(s): E66.01 - Morbid (severe) obesity due to excess calories; Z68.42 - Body mass index [BMI] 45.0-49.9, adult Status: Acute Plan 73-year-old female with history of coronary artery disease [place] in December 2 needed 12 status post CABG hypothyroidism hyperlipidemia hypertension insulin-dependent type 2 diabetes-for edema CKD stage 3 congestive heart failure anemia requiring transfusion presented to the ED for chest pain and shortness of breath intermittently for the past 3 weeks. She also has diagnosis of FILI and a trial of CPAP. Stress test on 09/19/2023 reports it is revealed of blockage in 1 of her coronary arteries. She reported right-sided chest wall pain for the past 3 weeks intermittently. Sometimes the pain radiates down her bilateral arms. Associated shortness of breath and dry cough. She also reported lower extremity edema which he attributes to lymphedema. Worsening orthopnea and 20 lb weight gain in the past 3 weeks. She has been taking her Bumex as prescribed. She received DuoNeb in the ED with some improvement. Prior echocardiogram 02/16/2020 showed moderately increased LV wall thickness EF of 60-65% grade 2 diastolic dysfunction right atrial chamber mildly enlarged severe pulmonary hypertension with PA systolic pressure measuring 68 mm Hg. On ED evaluation she was hypertension is oxygenation was adequate. Laboratory evaluation showed normal WBC creatinine 1.6 BNP 1850 COVID RSV flu negative EKG with ST-T changes with no acute findings. Initial troponin within normal limits. Serial troponin remained negative. D-dimer elevated at 2.[address] was performed which showed no PE but showed mild pulmonary edema with small pleural effusions and small pulmonary nodules with interval changes in distribution which may be a component of pulmonary edema and or or may be an infection. She had mild wheezing on presented to the ED which improved with DuoNeb. She has been started on IV diuresis with Lasix IV b.i.d.. Suspected CHF exacerbation. This is been switched to Bumex IV renal function stable with diuresis. Negative balance. His creatinine has bumped up Bumex dose has been reduced by fur trimmer. Will get venous duplex continue to monitor still volume overloaded for possible pneumonia she has also been restarted on Rocephin and azithromycin. This has been switched to oral cefdinir and azithromycin. Echo with EF 60-65% moderate concentric increased left ventricular wall thickness grade 1 diastolic dysfunction. Needs blood pressure control add amlodipine. Hold diuretic today. Right-sided chest pain has low code tenderness cou
[2023-10-01 17:11] LABS: Glucose Point of Care 154 mg/dl (65-105)
[2023-10-01] MEDS: polyethylene glycoL 3350 17 GM POWD.PACK PO (17:18)
[2023-10-01 20:54] LABS: Glucose Point of Care 144 mg/dl (65-105)
[2023-10-01] MEDS: PANTOPRAZOLE 40 MG TABLET PO (20:56)
[2023-10-01] MEDS: INSULIN GLARGINE (*BKC) 100 UNITS/ML 50 UNITS SUB-Q (20:57)
[2023-10-02] VITALS (23 sets, daily range): BP systolic 120–155; BP diastolic 48–81; PULSE 66–84; RESP 18–20; TEMP 36.4–36.6; O2SAT 94–99
[2023-10-02 00:39] LABS: Urea Random Urine 675 MG/DL
[2023-10-02 01:10] LABS: Sodium Urine Random 25 meq/L
[2023-10-02] MEDS: IPRATROPIUM 0.5 MG/ALBUTEROL SULFATE 2.5 MG AMPUL.NEB 3 ML INHALATION ×4 (01:59→22:10)
[2023-10-02 02:03] LABS: Creatinine Urine 110.7 mg/dL; Total Protein Urine Random 169 mg/dL; Ur Ttl Prot Creatinine Ratio 1.53 mg/mg (0-0.20)
[2023-10-02 04:55] LABS: Basophils Percent Auto 0.4 % (0.2-1.2); Eosinophils Absolute Auto 0.2 K/mm3 (0-0.3); Hematocrit 30.7 % (37.0-47.0); Hemoglobin 9.5 g/dL (12.0-15.0); Immature Granulocyte Absolute 0.02 K/mm3 (0.00-0.031); Immature Granulocyte Percent A 0.3 % (0-0.5); Immature Platelet Fraction Pct 8.8 % (0.9-11.2); Lymphocytes Percent Auto 25.7 % (18.3-44.2); Mean Corpuscular HGB Conc 30.9 g/dl (32-36); Mean Corpuscular Hemoglobin 30.4 pg (26-34); Mean Corpuscular Volume 98.1 fl (80-100); Mean Platelet Volume 13.3 fl (7.4-10.4); Monocytes Absolute Auto 1.1 K/mm3 (0.1-0.6); Monocytes Percent Auto 15.5 % (2.6-8.5); Neutrophils Absolute Auto 3.9 K/mm3 (1.3-6.7); Neutrophils Percent Auto 55.1 % (45.5-73.1); Platelet Count Result 163 k/mm3 (150-375); Red Blood Count 3.13 M/mm3 (4.2-5.4)
[2023-10-02 05:05] LABS: Alanine Aminotransferase 10 U/L (6-35); Albumin Level 3.2 g/dL (3.5-5.1); Alkaline Phosphatase 48 U/L (38-126); Anion Gap 2 mmol/L (8-16); Aspartate Amino Transferase 29 U/L (14-36); Bilirubin,Total 0.3 mg/dL (0.2-1.3); Blood Urea Nitrogen 52 mg/dL (7-17); Calcium 8.4 mg/dL (8.4-10.2); Carbon Dioxide 32 mmol/L (22-30); Chloride 105 mmol/L (98-107); Estimated CRCL calculation 21 ml/min; Estimated Glomerular Filt Rate 17; Glucose 173 mg/dL (65-110); Magnesium 1.9 mg/dL (1.6-2.3); Phosphorus 5.2 mg/dL (2.5-4.5); Potassium 4.6 mmol/L (3.4-5.0); Sodium 139 mmol/L (137-145)
[2023-10-02 08:27] LABS: Glucose Point of Care 164 mg/dl (65-105)
[2023-10-02] MEDS: AZITHROMYCIN 250 MG TABLET 500 MG PO (09:10)
[2023-10-02] MEDS: FAMOTIDINE 20 MG TABLET 40 MG PO (09:10)
[2023-10-02] MEDS: EMPAGLIFLOZIN 10 MG TABLET PO (09:10)
[2023-10-02] MEDS: METOPROLOL TARTRATE 12.5 MG TABLET PO ×2 (09:11→21:07)
[2023-10-02] MEDS: METOPROLOL TARTRATE 25 MG TABLET PO ×2 (09:11→09:12)
[2023-10-02] MEDS: PREGABALIN (*CRX) 75 MG CAPSULE PO ×3 (09:11→17:25)
[2023-10-02] MEDS: ASPIRIN 81 MG CHEWABLE TABLET PO (09:11)
[2023-10-02] MEDS: POTASSIUM CHLORIDE 20 MEQ ER TABLET PO ×2 (09:12→17:20)
[2023-10-02] MEDS: amLODIPine BESYLATE 5 MG TABLET PO (09:12)
[2023-10-02] MEDS: CLOPIDOGREL BISULFATE 75 MG TABLET PO (09:12)
[2023-10-02] MEDS: polyethylene glycoL 3350 17 GM POWD.PACK PO (09:19)
[2023-10-02] MEDS: CEFDINIR 300 MG CAPSULE PO (09:20)
[2023-10-02] MEDS: KETOROLAC 0.5% OP SOLN 5 ML BOTTLE 1 DROP RIGHT EYE ×3 (09:20→17:32)
[2023-10-02] MEDS: INSULIN ASPART (*BKC) 100 UNITS/ML 15 UNITS SUB-Q ×3 (09:20→17:29)
[2023-10-02] MEDS: ENOXAPARIN 40 MG/0.4 ML SYRINGE SUB-Q (09:20)
[2023-10-02] MEDS: LIDOCAINE 5% PATCH 1 PATCH TRANSDERM (09:21)
[2023-10-02 12:00] LABS: Glucose Point of Care 237 mg/dl (65-105)
--- NOTE | 2023-10-02 14:15 | PM.IMPN ---
Progress Note: A&P Assessment and Plan (1) Lung infiltrate: Code(s): R91.8 - Other nonspecific abnormal finding of lung field Status: Acute (2) Type 2 diabetes mellitus with hyperglycemia: Code(s): E11.65 - Type 2 diabetes mellitus with hyperglycemia Status: Acute (3) Essential hypertension: Code(s): I10 - Essential (primary) hypertension Status: Acute (4) Chronic kidney disease, stage 3: Code(s): N18.3 - Chronic kidney disease, stage 3 (moderate) Status: Chronic (5) FILI (obstructive sleep apnea): Code(s): G47.33 - Obstructive sleep apnea (adult) (pediatric) Status: Acute (6) GERD (gastroesophageal reflux disease): Code(s): K21.9 - Gastro-esophageal reflux disease without esophagitis Status: Acute (7) COPD (chronic obstructive pulmonary disease): Code(s): J44.9 - Chronic obstructive pulmonary disease, unspecified Status: Acute (8) Insulin dependent type 2 diabetes mellitus: Code(s): E11.9 - Type 2 diabetes mellitus without complications; Z79.4 - roasterman (current) use of insulin Status: Acute (9) Coronary artery disease: Code(s): I25.10 - Atherosclerotic heart disease of [place] coronary artery without angina pectoris Status: Acute (10) Morbid obesity with BMI of 45.0-49.9, adult: Code(s): E66.01 - Morbid (severe) obesity due to excess calories; Z68.42 - Body mass index [BMI] 45.0-49.9, adult Status: Acute Plan 73-year-old female with history of coronary artery disease [place] in December 2 needed 12 status post CABG hypothyroidism hyperlipidemia hypertension insulin-dependent type 2 diabetes-for edema CKD stage 3 congestive heart failure anemia requiring transfusion presented to the ED for chest pain and shortness of breath intermittently for the past 3 weeks. She also has diagnosis of FILI and a trial of CPAP. Stress test on 09/19/2023 reports it is revealed of blockage in 1 of her coronary arteries. She reported right-sided chest wall pain for the past 3 weeks intermittently. Sometimes the pain radiates down her bilateral arms. Associated shortness of breath and dry cough. She also reported lower extremity edema which he attributes to lymphedema. Worsening orthopnea and 20 lb weight gain in the past 3 weeks. She has been taking her Bumex as prescribed. She received DuoNeb in the ED with some improvement. Prior echocardiogram 02/16/2020 showed moderately increased LV wall thickness EF of 60-65% grade 2 diastolic dysfunction right atrial chamber mildly enlarged severe pulmonary hypertension with PA systolic pressure measuring 68 mm Hg. On ED evaluation she was hypertension is oxygenation was adequate. Laboratory evaluation showed normal WBC creatinine 1.6 BNP 1850 COVID RSV flu negative EKG with ST-T changes with no acute findings. Initial troponin within normal limits. Serial troponin remained negative. D-dimer elevated at 2.[address] was performed which showed no PE but showed mild pulmonary edema with small pleural effusions and small pulmonary nodules with interval changes in distribution which may be a component of pulmonary edema and or or may be an infection. She had mild wheezing on presented to the ED which improved with DuoNeb. She has been started on IV diuresis with Lasix IV b.i.d.. Suspected CHF exacerbation. This is been switched to Bumex IV renal function stable with diuresis. Negative balance. His creatinine has bumped up Bumex dose has been reduced by shell freezing machine operator. Creatinine continues to worsen. Bumex on hold. Possible pneumonia she has also been restarted on Rocephin and azithromycin. This has been switched to oral cefdinir and azithromycin. Echo with EF 60-65% moderate concentric increased left ventricular wall thickness grade 1 diastolic dysfunction. Needs blood pressure control add amlodipine. However reports dry mouth. Unsure if this is the etiology. For heart failure weak and switch
--- NOTE | 2023-10-02 14:43 | PM.PNNEP ---
Progress Note: A&P Assessment and Plan (1) Chronic kidney disease, stage 3b: Code(s): N18.32 - Chronic kidney disease, stage 3b Status: Acute Assessment and Plan: The patient has chronic kidney disease stage IIIB. Her GFR ranges in the low 30s generally. This is from diabetes and hypertension. Sleep apnea may be playing a role as well. The patient also has acute kidney injury. Urine electrolytes and fractional excretion of urea show non pre renal status. CK is only mildly elevated, not consequential to renal function. Renal ultrasound is unremarkable Her GFR peter after she got the contrast. She also has been getting diuresed. Her creatinine peter again today. Will give 1 dose of bumetanide to see if we can convert her to polyuric renal failure (2) Essential hypertension: Code(s): I10 - Essential (primary) hypertension Status: Acute Assessment and Plan: Blood pressure is doing better. (3) Type 2 diabetes mellitus with hyperglycemia: Code(s): E11.65 - Type 2 diabetes mellitus with hyperglycemia Status: Acute Assessment and Plan: Patient is on Accu-Cheks and sliding-scale insulin. Management per hospitalists. (4) Edema: Code(s): R60.9 - Edema, unspecified Status: Acute Assessment and Plan: She has quite a bit of swelling. This is most likely due salt retention because of the kidneys but also because of sleep apnea. Now with the acute kidney injury, there may be some sodium retention because of this. Her intake/output yesterday was 1630/2000. Will see if we can mobilize some with the bumetanide. (5) Obstructive sleep apnea: Onset Date: ~04/2020 Code(s): G47.33 - Obstructive sleep apnea (adult) (pediatric) Status: Acute Assessment and Plan: The patient is getting a CPAP at home. She is on a CPAP here in the hospital as well. Subjective Date/time seen: 10/02/23 14:43 Interval history: Katlin is about the same today She has been up and around. She is eating well. She is still somewhat short of breath when she moves around. She is on inhalers. She is using her CPAP machine at night Review of Systems Cardiovascular: Cardiovascular: Reports no additional cardiovascular complaints Respiratory: Respiratory: Reports no additional respiratory complaints Gastrointestinal: Gastrointestinal: Reports no additional gastrointestinal complaints Genitourinary: Genitourinary: Reports no additional female genitourinary complaints Exam Narrative: WDWN in NAD skin no rash head ncat lungs clear cor reg no rub abd BS+ nontender and soft ext 1-2+ edema. Objective Data Vital Signs Vital Signs: Vital Signs - 24 hr 10/01/23 16:00 10/01/23 19:21 10/01/23 16:00 Temperature 98.4 F Pulse Rate 74 73 76 Respiratory Rate 20 20 Blood Pressure 144/45 H Pulse Oximetry 96 Oxygen Delivery Fraction of Inspired Oxygen 10/01/23 19:43 10/01/23 19:50 10/01/23 20:56 Temperature 97.7 F Pulse Rate 76 76 75 Respiratory Rate 20 19 Blood Pressure 126/69 Pulse Oximetry 98 Oxygen Delivery Fraction of Inspired Oxygen 10/01/23 20:56 10/01/23 20:55 10/01/23 20:00 Temperature Pulse Rate 75 82 Respiratory Rate Blood Pressure Pulse Oximetry Oxygen Delivery Room Air Fraction of Inspired Oxygen 10/01/23 23:45 10/02/23 00:00 10/02/23 01:59 Temperature 97.3 F L Pulse Rate 67 80 76 Respiratory Rate 18 18 Blood Pressure 152/46 H Pulse Oximetry 95 Oxygen Delivery Fraction of Inspired Oxygen 10/02/23 02:06 10/02/23 01:00 10/02/23 03:31 Temperature Pulse Rate 72 81 78 Respiratory Rate 18 Blood Pressure Pulse Oximetry 96 97 Oxygen Delivery Autopap Autopap Fraction of Inspired Oxygen 10/02/23 04:10 10/02/23 04:00 10/02/23 07:45 Temperature 97.8 F 97.7 F Pulse Rate 73 73 84 Respiratory Rate 18 18 Blood Pressure 143/5
[2023-10-02] MEDS: BUMETANIDE INJ 2.5 MG/10 ML VIAL 2 MG IV PUSH (15:21)
[2023-10-02] MEDS: ACETAMINOPHEN 325 MG TABLET 650 MG PO (15:26)
[2023-10-02 16:20] LABS: Glucose Point of Care 186 mg/dl (65-105)
[2023-10-02] MEDS: hydrALAZINE HCL 25 MG TABLET PO (17:24)
[2023-10-02 20:13] LABS: Glucose Point of Care 241 mg/dl (65-105)
[2023-10-02] MEDS: INSULIN GLARGINE (*BKC) 100 UNITS/ML 50 UNITS SUB-Q (21:07)
[2023-10-02] MEDS: PANTOPRAZOLE 40 MG TABLET PO (21:08)
--- NOTE | 2023-10-02 23:17 | PC.NURSE ---
This patient, Katlin Calles, was transferred to [facility] on 10/02/23 at 2255. Personal belongings sent with patient. Report given to Alexsandra LOYA. Appropriate documentation sent with patient.
[2023-10-03] VITALS (21 sets, daily range): BP systolic 108–162; BP diastolic 44–65; PULSE 68–86; RESP 16–20; TEMP 36.1–36.4; O2SAT 94–100
[2023-10-03] MEDS: IPRATROPIUM 0.5 MG/ALBUTEROL SULFATE 2.5 MG AMPUL.NEB 3 ML INHALATION ×4 (03:08→22:08)
[2023-10-03 05:45] LABS: Basophils Absolute Auto 0.1 K/mm3 (0.0-0.1); Basophils Percent Auto 0.9 % (0.2-1.2); Eosinophils Absolute Auto 0.2 K/mm3 (0-0.3); Eosinophils Percent Auto 3.7 % (0-4.4); Hematocrit 30.7 % (37.0-47.0); Hemoglobin 9.7 g/dL (12.0-15.0); Immature Granulocyte Absolute 0.01 K/mm3 (0.00-0.031); Immature Granulocyte Percent A 0.2 % (0-0.5); Immature Platelet Fraction Pct 8.2 % (0.9-11.2); Lymphocytes Absolute Auto 1.63 K/mm3 (0.9-3.2); Lymphocytes Percent Auto 28.3 % (18.3-44.2); Mean Corpuscular HGB Conc 31.6 g/dl (32-36); Mean Corpuscular Hemoglobin 30.7 pg (26-34); Mean Corpuscular Volume 97.2 fl (80-100); Mean Platelet Volume 13.2 fl (7.4-10.4); Monocytes Percent Auto 17.4 % (2.6-8.5); Neutrophils Absolute Auto 2.9 K/mm3 (1.3-6.7); Neutrophils Percent Auto 49.5 % (45.5-73.1); Platelet Count Result 167 k/mm3 (150-375); Red Blood Count 3.16 M/mm3 (4.2-5.4); Red Cell Distribution Width 17.2 % (11.5-14.5); White Blood Count 5.8 K/mm3 (4.5-10.0)
[2023-10-03 05:57] LABS: Alanine Aminotransferase 10 U/L (6-35); Albumin Level 3.4 g/dL (3.5-5.1); Alkaline Phosphatase 47 U/L (38-126); Anion Gap 3 mmol/L (8-16); Aspartate Amino Transferase 24 U/L (14-36); Bilirubin,Total 0.3 mg/dL (0.2-1.3); Blood Urea Nitrogen 56 mg/dL (7-17); Calcium 8.6 mg/dL (8.4-10.2); Carbon Dioxide 33 mmol/L (22-30); Chloride 104 mmol/L (98-107); Estimated CRCL calculation 22 ml/min; Estimated Glomerular Filt Rate 18; Glucose 182 mg/dL (65-110); Magnesium 2.1 mg/dL (1.6-2.3); Phosphorus 4.8 mg/dL (2.5-4.5); Potassium 4.8 mmol/L (3.4-5.0); Sodium 140 mmol/L (137-145)
[2023-10-03 08:47] LABS: Glucose Point of Care 149 mg/dl (65-105)
[2023-10-03] MEDS: hydrALAZINE HCL 25 MG TABLET PO ×2 (08:50→12:10)
[2023-10-03] MEDS: PREGABALIN (*CRX) 75 MG CAPSULE PO ×3 (08:51→16:52)
[2023-10-03] MEDS: CEFDINIR 300 MG CAPSULE PO (08:51)
[2023-10-03] MEDS: METOPROLOL TARTRATE 12.5 MG TABLET PO ×2 (08:51→20:49)
[2023-10-03] MEDS: ASPIRIN 81 MG CHEWABLE TABLET PO (08:51)
[2023-10-03] MEDS: EMPAGLIFLOZIN 10 MG TABLET PO (08:51)
[2023-10-03] MEDS: CLOPIDOGREL BISULFATE 75 MG TABLET PO (08:52)
[2023-10-03] MEDS: FAMOTIDINE 20 MG TABLET 40 MG PO (08:52)
[2023-10-03] MEDS: POTASSIUM CHLORIDE 20 MEQ ER TABLET PO (08:52)
[2023-10-03] MEDS: ENOXAPARIN 40 MG/0.4 ML SYRINGE SUB-Q (08:52)
[2023-10-03] MEDS: METOPROLOL TARTRATE 25 MG TABLET PO ×2 (08:52→20:49)
[2023-10-03] MEDS: polyethylene glycoL 3350 17 GM POWD.PACK PO ×2 (08:53→16:52)
[2023-10-03] MEDS: KETOROLAC 0.5% OP SOLN 5 ML BOTTLE 1 DROP RIGHT EYE ×2 (08:55→12:10)
[2023-10-03] MEDS: INSULIN ASPART (*BKC) 100 UNITS/ML 15 UNITS SUB-Q ×3 (08:55→16:52)
--- NOTE | 2023-10-03 10:11 | PM.PNNEP ---
Progress Note: A&P Assessment and Plan (1) Chronic kidney disease, stage 3b: Code(s): N18.32 - Chronic kidney disease, stage 3b Status: Acute Assessment and Plan: The patient has chronic kidney disease stage IIIB. Her GFR ranges in the low 30s generally. This is from diabetes and hypertension. Sleep apnea may be playing a role as well. The patient also has acute kidney injury. Urine electrolytes and fractional excretion of urea show non pre renal status. CK is only mildly elevated, not consequential to renal function. Renal ultrasound is unremarkable Her GFR peter after she got the contrast. She also had been getting diuresed. Her creatinine improved a little bit today in spite of giving her Bumex last night. Will give another dose of Bumex today Patient is on a fluid restriction. Will discontinue this. I asked the patient to avoid drinking too much fluid. Sip fluid instead of gulping. Drink only if thirsty, not if not. Sodium level is okay so she does not need an official fluid restriction but she does not want to overwhelm things either. (2) Essential hypertension: Code(s): I10 - Essential (primary) hypertension Status: Acute Assessment and Plan: Blood pressure is doing better. (3) Type 2 diabetes mellitus with hyperglycemia: Code(s): E11.65 - Type 2 diabetes mellitus with hyperglycemia Status: Acute Assessment and Plan: Patient is on Accu-Cheks and sliding-scale insulin. Management per hospitalists. (4) Edema: Code(s): R60.9 - Edema, unspecified Status: Acute Assessment and Plan: She has quite a bit of swelling. This is most likely due salt retention because of the kidneys but also because of sleep apnea. She is using her CPAP machine. Will try another dose of Bumex. (5) Obstructive sleep apnea: Onset Date: ~04/2020 Code(s): G47.33 - Obstructive sleep apnea (adult) (pediatric) Status: Acute Assessment and Plan: The patient is getting a CPAP at home. She is on a CPAP here in the hospital as well. Subjective Date/time seen: 10/03/23 10:11 Interval history: Patient is feeling a little bit better today. She is thirsty. Exam Narrative: WDWN in NAD skin no rash head ncat lungs clear bilaterally cor reg no rub abd BS+ nontender and soft ext 1-2+ bilateral edema. Objective Data Vital Signs Vital Signs: Vital Signs - 24 hr 10/02/23 11:48 10/02/23 13:34 10/02/23 13:44 Temperature 97.6 F Pulse Rate 76 71 82 Respiratory Rate 18 18 20 Blood Pressure 120/81 Pulse Oximetry 97 Oxygen Delivery Fraction of Inspired Oxygen 10/02/23 12:00 10/02/23 16:07 10/02/23 20:38 Temperature 97.9 F 97.7 F Pulse Rate 76 83 66 Respiratory Rate 20 18 Blood Pressure 137/63 149/48 H Pulse Oximetry 99 98 Oxygen Delivery Fraction of Inspired Oxygen 10/02/23 21:07 10/02/23 20:00 10/02/23 22:12 Temperature Pulse Rate 83 78 Respiratory Rate 20 Blood Pressure Pulse Oximetry Oxygen Delivery Room Air Fraction of Inspired Oxygen 10/02/23 22:12 10/02/23 20:00 10/03/23 00:00 Temperature 97.0 F L Pulse Rate 75 84 Respiratory Rate 20 Blood Pressure 162/65 H Pulse Oximetry 98 96 Oxygen Delivery Room Air Fraction of Inspired Oxygen 21 10/03/23 03:09 10/03/23 03:12 10/02/23 22:22 Temperature Pulse Rate 80 80 81 Respiratory Rate 20 20 Blood Pressure Pulse Oximetry 95 Oxygen Delivery Autopap Fraction of Inspired Oxygen 10/02/23 23:00 10/03/23 04:00 10/03/23 05:16 Temperature 97.6 F Pulse Rate 82 75 82 Respiratory Rate 20 20 Blood Pressure 140/57 L Pulse Oximetry 94 100 Oxygen Delivery Autopap Fraction of Inspired Oxygen 10/03/23 00:00 10/03/23 04:00 10/03/23 07:52 Temperature Pulse Rate 77 83 75 Respiratory Rate 20 Blood Pressure Pulse Oximetry Oxygen Delivery Fraction of Insp
--- NOTE | 2023-10-03 10:17 | PM.IMPN ---
Progress Note: A&P Assessment and Plan (1) Acute on chronic heart failure with preserved ejection fraction: Code(s): I50.33 - Acute on chronic diastolic (congestive) heart failure Status: Acute Assessment and Plan: Patient presents with SOB and evidence of fluid overload. Echocardiogram 09/27 with LVEF 60-65%, grade 1 diastolic dysfunction, mild biatrial enlargement, mild tricupsid regurgitation. Diuretics started but held due to rising Cr. Scheduled Bumex stopped 09/29 Nephrology following Bumex once 10/01 with plans to repeat today. Started Jardiance 10mg once daily. Her SCr increased from 1.6 on 09/26 to 3.4 on 10/01 Cr better today. Plan to add Spironolactone (once renal function stablizes) Contineu to monitor daily weights, UOP, I/O's (2) KEZIA (acute kidney injury): Code(s): N17.9 - Acute kidney failure, unspecified Status: Acute Assessment and Plan: Baseline Cr 1.6-1.8 range. Cr 1.6 on admisison but climbed to 3.4 Etiology probably related to contrast, diueretics, ARB and underlying renal disease Renal US showing no acute findings. Cr better today Tolerating intermittent doses of Bumex Nephrology following and appreciate their input. Discussed with Nephrology (3) Lung infiltrate: Code(s): R91.8 - Other nonspecific abnormal finding of lung field Status: Acute Assessment and Plan: DDimer was positive but CTA chest showing no PE and LE venous doppler negative for DVT. Suspect pleuritic chest pain related to above CT did show small pulmonary nodules with interval change in distribution, may be a component of edema or infection Possible pneumonia so she was restarted on Rocephin and azithromycin. This has been switched to oral cefdinir and azithromycin. (4) Type 2 diabetes mellitus with hyperglycemia: Code(s): E11.65 - Type 2 diabetes mellitus with hyperglycemia Status: Acute Assessment and Plan: The patient's blood glucose was reviewed on 10/02 Glucose remains mostly well controlled. Continue AccuCheks covering with sliding scale. Hypoglycemia protocol available as needed. Continue to monitor (5) Essential hypertension: Code(s): I10 - Essential (primary) hypertension Status: Acute Assessment and Plan: Patient's blood pressure was reviewed on Blood pressure remains well controlled. Will continue to follow (6) Chronic kidney disease, stage 3: Code(s): N18.3 - Chronic kidney disease, stage 3 (moderate) Status: Chronic Assessment and Plan: As above (7) FILI (obstructive sleep apnea): Code(s): G47.33 - Obstructive sleep apnea (adult) (pediatric) Status: Acute Assessment and Plan: Compliant with treatment Continue the same (8) COPD (chronic obstructive pulmonary disease): Code(s): J44.9 - Chronic obstructive pulmonary disease, unspecified Status: Acute Assessment and Plan: No wheezing appreciated. Continue bronchodilators Add Mucinex. (9) Coronary artery disease: Code(s): I25.10 - Atherosclerotic heart disease of [place] coronary artery without angina pectoris Status: Acute Assessment and Plan: Stable. Scheduled for outpatient cardiac catheterization at [facility]. Does not need inpatient cardiac cath here per cardiology. Continue ASA, Plavix, Lopressor. Allergic to statin. Add Zetia (10) Morbid obesity with BMI of 45.0-49.9, adult: Code(s): E66.01 - Morbid (severe) obesity due to excess calories; Z68.42 - Body mass index [BMI] 45.0-49.9, adult Status: Acute Assessment and Plan: BMI 57. This is contributing to her other medical problems Health lifestyle encouraged Plan Code status - full DVT prophylaxis - Lovenox Subjective Date/time seen: 10/03/23 10:17 Interval history: 73yo female with CAD s/p CABG, FILI, DM, MO and CKD here for worsening swelling of bilateral lower extremities,
[2023-10-03] MEDS: EZETIMIBE 10 MG TABLET PO (12:01)
[2023-10-03] MEDS: BUMETANIDE INJ 2.5 MG/10 ML VIAL 2 MG IV PUSH (12:01)
[2023-10-03] MEDS: guaiFENesin 12 HR 600 MG TABCR PO ×2 (12:01→20:48)
[2023-10-03 12:11] LABS: Glucose Point of Care 139 mg/dl (65-105)
--- NOTE | 2023-10-03 15:44 | PM.PNCARD ---
Progress Note: A&P Assessment and Plan (1) Acute on chronic heart failure with preserved ejection fraction: Code(s): I50.33 - Acute on chronic diastolic (congestive) heart failure Status: Acute Assessment and Plan: Echocardiogram 09/27 with LVEF 60-65%, grade 1 diastolic dysfunction, mild biatrial enlargement, mild tricupsid regurgitation. Her SCr on increased stable today at 3.1. IV Bumex 2 mg x 1 given earlier today. Monitor urine output, accurate daily weight, input and output. Discussed fluid intake, heart failure management at great length. Continue Jardiance 10mg once daily. Ideally, spironolactone would be recommended, however, given acute on chronic kidney injury hold off for the time being. While not an option at present given acute kidney injury, we could consider addition of low-dose Entresto for additional heart failure management. (2) Acute kidney injury superimposed on chronic kidney disease: Code(s): N17.9 - Acute kidney failure, unspecified; N18.9 - Chronic kidney disease, unspecified Status: Acute Assessment and Plan: Patient acute kidney injury on top of chronic CKD stage 3. Clinically, patient is dry oral mucosa complaining of significant dizziness ambulation with acute kidney injury. Volume status difficult to assess given persistence of peripheral edema however have some concern she may be more intravascular volume depleted then can be appreciated. Need to monitor volume status very closely strict input and output, daily weight. Monitor renal function in response to diuretic therapy. Difficult volume assessment as above as by exam. Ongoing peripheral edema and complaints shortness of breath suggest ongoing volume overload yet with signs of intravascular volume depletion with dry oral mucosa and worsening dizziness suggest otherwise. Appreciate Nephrology involvement and recommendations. Observe response to Bumex 2 mg IV given today. (3) Coronary artery disease: Code(s): I25.10 - Atherosclerotic heart disease of [place] coronary artery without angina pectoris Status: Acute Assessment and Plan: Stable. Scheduled for outpatient cardiac catheterization at [facility] later this month. Does not need inpatient cardiac cath here. Continue ASA 81 mg daily, Plavix 75 mg daily. She is intolerant to statins. Zetia 10 mg daily started today. (4) Hypertension associated with diabetes: Code(s): E11.59 - Type 2 diabetes mellitus with other circulatory complications; I15.2 - Hypertension secondary to endocrine disorders Status: Acute Assessment and Plan: BP relatively stable at present although somewhat labile. Patient complains of feeling very dizzy with change in position or activity. Recommend holding hydralazine for now particular as patient complains of feeling shaky and dizzy and this was the most recent antihypertensive added. Continue metoprolol tartrate 12.5 mg twice daily. (5) Type 2 diabetes mellitus with hyperglycemia: Code(s): E11.65 - Type 2 diabetes mellitus with hyperglycemia Status: Acute Assessment and Plan: Management as per primary team. (6) Hyperlipidemia associated with type 2 diabetes mellitus: Code(s): E11.69 - Type 2 diabetes mellitus with other specified complication; E78.5 - Hyperlipidemia, unspecified Status: Acute Assessment and Plan: Patient intolerant to statins. Agree with addition of Zetia 10 mg daily as tolerated. Monitor closely. (7) Morbid obesity with BMI of 45.0-49.9, adult: Code(s): E66.01 - Morbid (severe) obesity due to excess calories; Z68.42 - Body mass index [BMI] 45.0-49.9, adult Status: Acute Assessment and Plan: Needs to lose weight. Consider weight loss medication (such as Ozempic) as an outpatient. Subjective Date/time seen: 10/03/23 15:44 Interval history: Reason for visit: Acute on chronic diastolic heart failure HPI: This is a 73-year-o
[2023-10-03 17:12] LABS: Glucose Point of Care 116 mg/dl (65-105)
[2023-10-03] MEDS: INSULIN GLARGINE (*BKC) 100 UNITS/ML 50 UNITS SUB-Q (20:49)
[2023-10-03] MEDS: PANTOPRAZOLE 40 MG TABLET PO (20:49)
[2023-10-04] VITALS (28 sets, daily range): BP systolic 132–147; BP diastolic 43–65; PULSE 64–83; RESP 18–21; TEMP 36.1–36.5; O2SAT 94–100
[2023-10-04] MEDS: IPRATROPIUM 0.5 MG/ALBUTEROL SULFATE 2.5 MG AMPUL.NEB 3 ML INHALATION ×4 (02:41→20:36)
[2023-10-04 03:12] LABS: Glucose Point of Care 120 mg/dl (65-105)
[2023-10-04] MEDS: ACETAMINOPHEN 325 MG TABLET 650 MG PO (06:23)
[2023-10-04] MEDS: CYCLOBENZAPRINE HCL 5 MG TABLET PO (06:24)
[2023-10-04 06:35] LABS: Albumin Level 3.2 g/dL (3.5-5.1); Anion Gap 2 mmol/L (8-16); Blood Urea Nitrogen 56 mg/dL (7-17); Calcium 8.4 mg/dL (8.4-10.2); Carbon Dioxide 33 mmol/L (22-30); Chloride 102 mmol/L (98-107); Estimated CRCL calculation 21 ml/min; Estimated Glomerular Filt Rate 17; Glucose 161 mg/dL (65-110); Phosphorus 5.2 mg/dL (2.5-4.5); Potassium 4.7 mmol/L (3.4-5.0); Sodium 137 mmol/L (137-145)
[2023-10-04] MEDS: ENOXAPARIN 40 MG/0.4 ML SYRINGE SUB-Q (08:31)
[2023-10-04] MEDS: guaiFENesin 12 HR 600 MG TABCR PO ×2 (08:32→20:32)
[2023-10-04] MEDS: EMPAGLIFLOZIN 10 MG TABLET PO (08:32)
[2023-10-04] MEDS: EZETIMIBE 10 MG TABLET PO (08:33)
[2023-10-04] MEDS: METOPROLOL TARTRATE 12.5 MG TABLET PO ×2 (08:33→20:32)
[2023-10-04] MEDS: PREGABALIN (*CRX) 75 MG CAPSULE PO ×3 (08:33→16:58)
[2023-10-04] MEDS: ASPIRIN 81 MG CHEWABLE TABLET PO (08:33)
[2023-10-04] MEDS: CEFDINIR 300 MG CAPSULE PO (08:33)
[2023-10-04] MEDS: CLOPIDOGREL BISULFATE 75 MG TABLET PO (08:34)
[2023-10-04] MEDS: FAMOTIDINE 20 MG TABLET 40 MG PO (08:35)
[2023-10-04] MEDS: METOPROLOL TARTRATE 25 MG TABLET PO ×2 (08:35→20:33)
[2023-10-04] MEDS: LIDOCAINE 5% PATCH 1 PATCH TRANSDERM (08:35)
[2023-10-04] MEDS: polyethylene glycoL 3350 17 GM POWD.PACK PO (08:36)
[2023-10-04 08:37] LABS: Glucose Point of Care 151 mg/dl (65-105)
[2023-10-04] MEDS: KETOROLAC 0.5% OP SOLN 5 ML BOTTLE 1 DROP RIGHT EYE ×3 (08:37→16:58)
[2023-10-04] MEDS: INSULIN ASPART (*BKC) 100 UNITS/ML 15 UNITS SUB-Q ×3 (08:38→17:00)
[2023-10-04 12:09] LABS: Glucose Point of Care 203 mg/dl (65-105)
--- NOTE | 2023-10-04 13:41 | PM.PNNEP ---
Progress Note: A&P Assessment and Plan (1) Chronic kidney disease, stage 3b: Code(s): N18.32 - Chronic kidney disease, stage 3b Status: Acute Assessment and Plan: The patient has chronic kidney disease stage IIIB. Her GFR ranges in the low 30s generally. This is from diabetes and hypertension. Sleep apnea may be playing a role as well. The patient also has acute kidney injury. Urine electrolytes and fractional excretion of urea show non pre renal status. CK is only mildly elevated, not consequential to renal function. Renal ultrasound is unremarkable Her GFR peter after she got the contrast. She also had been getting diuresed. creatinine the same hold off on diurtetics today (2) Essential hypertension: Code(s): I10 - Essential (primary) hypertension Status: Acute Assessment and Plan: Blood pressure is doing better. (3) Type 2 diabetes mellitus with hyperglycemia: Code(s): E11.65 - Type 2 diabetes mellitus with hyperglycemia Status: Acute Assessment and Plan: Patient is on Accu-Cheks and sliding-scale insulin. Management per hospitalists. (4) Edema: Code(s): R60.9 - Edema, unspecified Status: Acute Assessment and Plan: She has quite a bit of swelling. This is most likely due salt retention because of the kidneys but also because of sleep apnea. She is using her CPAP machine. (5) Obstructive sleep apnea: Onset Date: ~04/2020 Code(s): G47.33 - Obstructive sleep apnea (adult) (pediatric) Status: Acute Assessment and Plan: The patient will be getting a CPAP at home. She is on a CPAP here in the hospital as well. Subjective Date/time seen: 10/04/23 13:41 Interval history: alert. feels okay up in chair eating lunch no sob some swelling still Exam Narrative: WDWN in NAD skin no rash head ncat lungs clear bilaterally cor reg no rub abd BS+ nontender and soft ext 1-2+ bilateral edema. Objective Data Vital Signs Vital Signs: Vital Signs - 24 hr 10/03/23 13:58 10/03/23 14:15 10/03/23 16:00 Temperature Pulse Rate 71 75 74 Respiratory Rate 20 20 Blood Pressure Pulse Oximetry Oxygen Delivery 10/03/23 20:49 10/03/23 20:49 10/03/23 20:50 Temperature Pulse Rate 68 68 Respiratory Rate Blood Pressure Pulse Oximetry Oxygen Delivery Room Air 10/03/23 20:04 10/03/23 20:35 10/03/23 22:08 Temperature 97.1 F L Pulse Rate 73 73 Respiratory Rate 20 Blood Pressure 144/49 H Pulse Oximetry 98 95 Oxygen Delivery Room Air 10/03/23 22:08 10/04/23 00:02 10/04/23 00:55 Temperature 97.0 F L Pulse Rate 78 79 64 Respiratory Rate 20 20 Blood Pressure 132/57 L Pulse Oximetry 98 Oxygen Delivery 10/04/23 02:42 10/03/23 23:45 10/03/23 22:18 Temperature Pulse Rate 73 75 81 Respiratory Rate 20 20 Blood Pressure Pulse Oximetry 96 Oxygen Delivery Autopap 10/04/23 04:04 10/04/23 02:50 10/04/23 02:52 Temperature Pulse Rate 66 72 75 Respiratory Rate 20 Blood Pressure Pulse Oximetry 94 Oxygen Delivery Autopap 10/04/23 04:55 10/04/23 08:33 10/04/23 08:35 Temperature 97.0 F L Pulse Rate 68 83 83 Respiratory Rate 20 Blood Pressure 147/56 H Pulse Oximetry 98 Oxygen Delivery 10/04/23 08:44 10/04/23 09:28 10/04/23 09:30 Temperature Pulse Rate 83 76 76 Respiratory Rate 20 20 20 Blood Pressure Pulse Oximetry 98 97 Oxygen Delivery Room Air Room Air 10/04/23 08:00 10/04/23 09:40 10/04/23 09:45 Temperature 97.2 F L Pulse Rate 77 74 73 Respiratory Rate 20 20 Blood Pressure 133/65 Pulse Oximetry 98 Oxygen Delivery 10/04/23 12:04 Temperature Pulse Rate 71 Respiratory Rate Blood Pressure Pulse Oximetry Oxygen Delivery Intake/Output Intake/Output: Intake & Output 10/01/23 10/02/23 10/03/23 10/04/23 23:59 23:59 23:59 23:59 Intake Total 163
--- NOTE | 2023-10-04 16:30 | PM.IMPN ---
Progress Note: A&P Assessment and Plan (1) Acute on chronic heart failure with preserved ejection fraction: Code(s): I50.33 - Acute on chronic diastolic (congestive) heart failure Status: Acute Assessment and Plan: Patient presents with SOB and evidence of fluid overload. Echo 09/27 with LVEF 60-65%, grade 1 diastolic dysfunction, mild biatrial enlargement, mild tricupsid regurgitation. Diuretics started but held 09/29 due to rising Cr. Started Jardiance 10mg once daily but will hold for now. Plan to add Spironolactone (once renal function stabilizes) Nephrology following Bumex once 10/01 and again 10/02 Cr 1.6 on 09/26 but climbed to 3.2 and now stable. Good UOP with Bumex Continue to monitor daily weights, UOP, I/O's (2) KEZIA (acute kidney injury): Code(s): N17.9 - Acute kidney failure, unspecified Status: Acute Assessment and Plan: Baseline Cr 1.6-1.8 range. Cr 1.6 on admission but climbed to 3.2 Etiology probably related to contrast, diuretics, ARB and underlying renal disease Renal US showing no acute findings. Cr stable Tolerating intermittent doses of Bumex Nephrology following and appreciate their input. Discussed with Nephrology Hold Miyarichermes. Add renal diet Continue to monitor UOP, renal function and electrolytes (3) Lung infiltrate: Code(s): R91.8 - Other nonspecific abnormal finding of lung field Status: Acute Assessment and Plan: DDimer was positive but CTA chest showing no PE and LE venous doppler negative for DVT. Suspect pleuritic chest pain related to above CT did show small pulmonary nodules with interval change in distribution, may be a component of edema or infection Possible pneumonia so she was restarted on Rocephin and azithromycin. She completed azithromycin Switched to oral cefdinir and completed course today. (4) Type 2 diabetes mellitus with hyperglycemia: Code(s): E11.65 - Type 2 diabetes mellitus with hyperglycemia Status: Acute Assessment and Plan: A1c 10.2. The patient's blood glucose was reviewed on 10/03 Glucose remains mostly well controlled. She is on Lantus 50U HS and Novolog 15U AC Continue AccuCheks covering with sliding scale. Hypoglycemia protocol available as needed. Continue to monitor (5) Essential hypertension: Code(s): I10 - Essential (primary) hypertension Status: Acute Assessment and Plan: Patient's blood pressure was reviewed on 10/03 Blood pressure remains well controlled. Will continue to follow (6) Chronic kidney disease, stage 3: Code(s): N18.3 - Chronic kidney disease, stage 3 (moderate) Status: Chronic Assessment and Plan: As above (7) FILI (obstructive sleep apnea): Code(s): G47.33 - Obstructive sleep apnea (adult) (pediatric) Status: Acute Assessment and Plan: Compliant with treatment Continue the same (8) COPD (chronic obstructive pulmonary disease): Code(s): J44.9 - Chronic obstructive pulmonary disease, unspecified Status: Acute Assessment and Plan: No wheezing appreciated. Continue bronchodilators Continue Mucinex. (9) Coronary artery disease: Code(s): I25.10 - Atherosclerotic heart disease of [place] coronary artery without angina pectoris Status: Acute Assessment and Plan: Stable. Scheduled for outpatient cardiac catheterization at [facility]. Does not need inpatient cardiac cath here per cardiology. Continue ASA, Plavix, Lopressor. Allergic to statin. Zetia added (10) Morbid obesity with BMI of 45.0-49.9, adult: Code(s): E66.01 - Morbid (severe) obesity due to excess calories; Z68.42 - Body mass index [BMI] 45.0-49.9, adult Status: Acute Assessment and Plan: BMI 57. This is contributing to her other medical problems Health lifestyle encouraged Plan Left UE weakness - Not overly appreciated on exam possibly related to her emotional s
[2023-10-04 16:54] LABS: Glucose Point of Care 150 mg/dl (65-105)
[2023-10-04] MEDS: PANTOPRAZOLE 40 MG TABLET PO (20:33)
[2023-10-05] VITALS (19 sets, daily range): BP systolic 131–150; BP diastolic 40–63; PULSE 62–78; RESP 18–22; TEMP 36.2–36.7; O2SAT 96–100
[2023-10-05] MEDS: IPRATROPIUM 0.5 MG/ALBUTEROL SULFATE 2.5 MG AMPUL.NEB 3 ML INHALATION ×3 (02:50→14:42)
[2023-10-05 03:47] LABS: Glucose Point of Care 78 mg/dl (65-105)
[2023-10-05 06:53] LABS: Anion Gap 2 mmol/L (8-16); Blood Urea Nitrogen 56 mg/dL (7-17); Calcium 8.4 mg/dL (8.4-10.2); Carbon Dioxide 31 mmol/L (22-30); Chloride 104 mmol/L (98-107); Estimated CRCL calculation 23 ml/min; Estimated Glomerular Filt Rate 19; Glucose 136 mg/dL (65-110); Potassium 4.8 mmol/L (3.4-5.0); Sodium 137 mmol/L (137-145)
[2023-10-05 08:08] LABS: Glucose Point of Care 212 mg/dl (65-105)
[2023-10-05] MEDS: ASPIRIN 81 MG CHEWABLE TABLET PO (08:48)
[2023-10-05] MEDS: EZETIMIBE 10 MG TABLET PO (08:48)
[2023-10-05] MEDS: guaiFENesin 12 HR 600 MG TABCR PO ×2 (08:49→20:34)
[2023-10-05] MEDS: FAMOTIDINE 20 MG TABLET 40 MG PO (08:49)
[2023-10-05] MEDS: polyethylene glycoL 3350 17 GM POWD.PACK PO (08:49)
[2023-10-05] MEDS: CLOPIDOGREL BISULFATE 75 MG TABLET PO (08:49)
[2023-10-05] MEDS: LIDOCAINE 5% PATCH 1 PATCH TRANSDERM (08:49)
[2023-10-05] MEDS: INSULIN ASPART (*BKC) 100 UNITS/ML 15 UNITS SUB-Q ×3 (08:54→17:56)
--- NOTE | 2023-10-05 09:02 | PM.PNNEP ---
Progress Note: A&P Assessment and Plan (1) Chronic kidney disease, stage 3b: Code(s): N18.32 - Chronic kidney disease, stage 3b Status: Acute Assessment and Plan: The patient has chronic kidney disease stage IIIB. Her GFR ranges in the low 30s generally. This is from diabetes and hypertension. Sleep apnea may be playing a role as well. The patient also has acute kidney injury. Urine electrolytes and fractional excretion of urea show non pre renal status. CK is only mildly elevated, not consequential to renal function. Renal ultrasound is unremarkable Her GFR peter after she got the contrast. She also had been getting diuresed. creatinine the did have a plateau but now the creatinine is down to 2.9. Hopefully this will continue to improve to her former baseline. The patient still has lots of swelling. Long discussion with the patient. I think we should hold off on diuretics for a little while until the kidney function is better. And we can full diuretics back in. (2) Essential hypertension: Code(s): I10 - Essential (primary) hypertension Status: Acute Assessment and Plan: Blood pressure is doing better. (3) Type 2 diabetes mellitus with hyperglycemia: Code(s): E11.65 - Type 2 diabetes mellitus with hyperglycemia Status: Acute Assessment and Plan: Patient is on Accu-Cheks and sliding-scale insulin. Management per hospitalists. (4) Edema: Code(s): R60.9 - Edema, unspecified Status: Acute Assessment and Plan: She has quite a bit of swelling. This is most likely due salt retention because of the kidneys but also because of sleep apnea. She is using her CPAP machine. As discussed above, hold diuretics for now. (5) Obstructive sleep apnea: Onset Date: ~04/2020 Code(s): G47.33 - Obstructive sleep apnea (adult) (pediatric) Status: Acute Assessment and Plan: The patient will be getting a CPAP at home. She is on a CPAP here in the hospital as well. Subjective Date/time seen: 10/05/23 09:02 Interval history: Patient is alert. Sitting up in her chair eating breakfast. No shortness of breath. He has a little cough. She has her chest pain which has been going on since admission. That is why she got the CTA Exam Narrative: WDWN in NAD skin no rash or subQ nodules head ncat lungs clear to auscultation cor reg no rub or gallop abd BS+ nontender and soft ext 1-2+ bilateral edema. Objective Data Vital Signs Vital Signs: Vital Signs - 24 hr 10/04/23 09:28 10/04/23 09:30 10/04/23 09:40 Temperature Pulse Rate 76 76 74 Respiratory Rate 20 20 20 Blood Pressure Pulse Oximetry 97 Oxygen Delivery Room Air 10/04/23 09:45 10/04/23 12:04 10/04/23 14:10 Temperature 97.2 F L Pulse Rate 73 71 70 Respiratory Rate 20 20 Blood Pressure 133/65 Pulse Oximetry 98 Oxygen Delivery 10/04/23 14:00 10/04/23 14:19 10/04/23 16:01 Temperature 97.7 F Pulse Rate 68 72 69 Respiratory Rate 18 20 Blood Pressure 137/43 L Pulse Oximetry 99 Oxygen Delivery 10/04/23 20:32 10/04/23 20:33 10/04/23 20:36 Temperature Pulse Rate 72 72 70 Respiratory Rate 20 Blood Pressure Pulse Oximetry Oxygen Delivery 10/04/23 20:38 10/04/23 20:43 10/04/23 20:30 Temperature Pulse Rate 79 Respiratory Rate 20 Blood Pressure Pulse Oximetry 94 Oxygen Delivery Room Air Room Air 10/04/23 20:04 10/04/23 22:15 10/05/23 00:01 Temperature Pulse Rate 72 65 Respiratory Rate Blood Pressure Pulse Oximetry 95 Oxygen Delivery Autopap 10/05/23 02:50 10/05/23 02:56 10/05/23 04:00 Temperature Pulse Rate 72 74 62 Respiratory Rate 20 20 Blood Pressure Pulse Oximetry Oxygen Delivery 10/04/23 20:55 10/05/23 05:00 10/05/23 08:00 Temperature 97.4 F L 97.2 F L 97.6 F Pulse Rate 68 77 63 Respiratory Rate 21 H 20 20 Blood Press
--- NOTE | 2023-10-05 09:16 | PM.PNCARD ---
Progress Note: A&P Assessment and Plan (1) Acute on chronic heart failure with preserved ejection fraction: Code(s): I50.33 - Acute on chronic diastolic (congestive) heart failure Status: Acute Assessment and Plan: Echocardiogram 09/27 with LVEF 60-65%, grade 1 diastolic dysfunction, mild biatrial enlargement, mild tricupsid regurgitation. Her SCr is trending down but remains elevated at 2.9 today. Holding Bumex. Monitor urine output, accurate daily weight, input and output Continue Jardiance 10mg once daily. Ideally, spironolactone would be recommended, however, given acute on chronic kidney injury hold off for the time being. While not an option at present given acute kidney injury, we could consider addition of low-dose Entresto for additional heart failure management. (2) Acute kidney injury superimposed on chronic kidney disease: Code(s): N17.9 - Acute kidney failure, unspecified; N18.9 - Chronic kidney disease, unspecified Status: Acute Assessment and Plan: Patient acute kidney injury on top of chronic CKD stage 3. Bumex has been on hold for a couple of days. Nephrology is following along as well, appreciate their input and recommendations. (3) Coronary artery disease: Code(s): I25.10 - Atherosclerotic heart disease of [place] coronary artery without angina pectoris Status: Acute Assessment and Plan: Stable. Scheduled for outpatient cardiac catheterization at [facility] later this month. Does not need inpatient cardiac cath here. Continue ASA 81 mg daily, Plavix 75 mg daily. She is intolerant to statins. Zetia 10 mg daily started. (4) Hypertension associated with diabetes: Code(s): E11.59 - Type 2 diabetes mellitus with other circulatory complications; I15.2 - Hypertension secondary to endocrine disorders Status: Acute Assessment and Plan: BP relatively stable at present although somewhat labile. (5) Type 2 diabetes mellitus with hyperglycemia: Code(s): E11.65 - Type 2 diabetes mellitus with hyperglycemia Status: Acute Assessment and Plan: Management as per primary team. (6) Hyperlipidemia associated with type 2 diabetes mellitus: Code(s): E11.69 - Type 2 diabetes mellitus with other specified complication; E78.5 - Hyperlipidemia, unspecified Status: Acute Assessment and Plan: Patient intolerant to statins. Agree with addition of Zetia 10 mg daily as tolerated. Monitor closely. (7) Morbid obesity with BMI of 45.0-49.9, adult: Code(s): E66.01 - Morbid (severe) obesity due to excess calories; Z68.42 - Body mass index [BMI] 45.0-49.9, adult Status: Acute Assessment and Plan: Needs to lose weight. Consider weight loss medication (such as Ozempic) as an outpatient. Subjective Date/time seen: 10/05/23 09:16 Interval history: Reason for visit: Acute on chronic diastolic heart failure HPI: This is a 73-year-old woman I am seeing at the request of the hospitalist because of the diagnosis of CHF exacerbation.? She is known to Dr. Sanchez of our practice but I do not believe I have seen this lady in the past.? She has a history of chronic coronary artery disease and a history of diastolic left ventricular dysfunction by evaluation that has been done over the last several years in our office.? She was found to have coronary artery disease when she presented to this hospital with ACS back in 2020.? She was brought to the cardiac catheterization lab and found to have multivessel coronary disease including high-grade ostial stenosis of the LAD.? She was referred to [facility] for surgical revascularization.? She received an DANA graft to the LAD, a radial graft to the PDA and a saphenous vein graft to the OM.? She has been seeing Dr. Sanchez since then and chronically has complaints of shortness of breath and variable amounts of lower extremity edema which has been attributed to morbid obesity and th
[2023-10-05] MEDS: METOPROLOL TARTRATE 12.5 MG TABLET PO ×2 (10:19→20:34)
[2023-10-05] MEDS: METOPROLOL TARTRATE 25 MG TABLET PO ×2 (10:19→20:34)
[2023-10-05] MEDS: KETOROLAC 0.5% OP SOLN 5 ML BOTTLE 1 DROP RIGHT EYE ×3 (10:20→17:56)
--- NOTE | 2023-10-05 10:58 | PCNWS ---
Weekly nutritional screen. Patient is tolerating current diet with adequate intake. No weight loss reported. No nutritional needs at this time.
[2023-10-05 11:22] LABS: Glucose Point of Care 154 mg/dl (65-105)
[2023-10-05 12:14] LABS: Hemoglobin 9.6 g/dL (12.0-15.0); Immature Platelet Fraction Pct 9.7 % (0.9-11.2); Mean Platelet Volume 13.9 fl (7.4-10.4); Platelet Count Result 161 k/mm3 (150-375); Red Cell Distribution Width 17.2 % (11.5-14.5); White Blood Count 6.1 K/mm3 (4.5-10.0)
[2023-10-05 12:31] LABS: Glucose Point of Care 144 mg/dl (65-105)
[2023-10-05 14:00] LABS: Glucose Point of Care 141 mg/dl (65-105)
[2023-10-05] MEDS: ENOXAPARIN 40 MG/0.4 ML SYRINGE SUB-Q (14:05)
--- NOTE | 2023-10-05 14:17 | PC.NURSE ---
On 10/05/23, the student, [Moe Leblanc], provided care and completed [facility] documentation on this patient. I have reviewed the student's documentation and agree with the findings.
--- NOTE | 2023-10-05 14:31 | PM.IMPN ---
Progress Note: A&P Assessment and Plan (1) Acute on chronic heart failure with preserved ejection fraction: Code(s): I50.33 - Acute on chronic diastolic (congestive) heart failure Status: Acute Assessment and Plan: Patient presents with SOB and evidence of fluid overload. Echo 09/27 with LVEF 60-65%, grade 1 diastolic dysfunction, mild biatrial enlargement, mild tricupsid regurgitation. Diuretics started but held 09/29 due to rising Cr. Started Jardiance 10mg once daily but will hold for now. Plan to add Spironolactone (once renal function stabilizes) Nephrology and Cardiology following Cr 1.6 on 09/26 but climbed to 3.2 Bumex once 10/01 and again 10/02 Good UOP with Bumex Continue to monitor daily weights, UOP, I/O's (2) KEZIA (acute kidney injury): Code(s): N17.9 - Acute kidney failure, unspecified Status: Acute Assessment and Plan: Baseline Cr 1.6-1.8 range. Cr 1.6 on admission but climbed to 3.2 Etiology probably related to contrast, diuretics, ARB and underlying renal disease Renal US showing no acute findings. Tolerating intermittent doses of Bumex Nephrology following and appreciate their input. Holding Lyrica. On a renal diet Cr better at 2.9 Continue to monitor UOP, renal function and electrolytes (3) Lung infiltrate: Code(s): R91.8 - Other nonspecific abnormal finding of lung field Status: Acute Assessment and Plan: DDimer was positive but CTA chest showing no PE and LE venous doppler negative for DVT. 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 No PE by CTA. Suspect chronic musculoskeletal pain that worsened due to tachypnea and cough. Symptomatic care. CT did show small pulmonary nodules with interval change in distribution, may be a component of edema or infection Possible pneumonia so she was restarted on Rocephin and azithromycin. She completed azithromycin Switched to oral cefdinir and completed a course; Off abx 10/03 (4) Type 2 diabetes mellitus with hyperglycemia: Code(s): E11.65 - Type 2 diabetes mellitus with hyperglycemia Status: Acute Assessment and Plan: A1c 10.2. The patient's blood glucose was reviewed on 10/04 Glucose remains mostly well controlled. She is on Lantus 50U HS and Novolog 15U AC Continue AccuCheks covering with sliding scale. Hypoglycemia protocol available as needed. Continue to monitor (5) Essential hypertension: Code(s): I10 - Essential (primary) hypertension Status: Acute Assessment and Plan: Patient's blood pressure was reviewed on 10/04 Blood pressure remains well controlled. Will continue to follow (6) Chronic kidney disease, stage 3: Code(s): N18.3 - Chronic kidney disease, stage 3 (moderate) Status: Chronic Assessment and Plan: As above (7) FILI (obstructive sleep apnea): Code(s): G47.33 - Obstructive sleep apnea (adult) (pediatric) Status: Acute Assessment and Plan: Compliant with treatment Continue the same (8) COPD (chronic obstructive pulmonary disease): Code(s): J44.9 - Chronic obstructive pulmonary disease, unspecified Status: Acute Assessment and Plan: No wheezing appreciated. Continue bronchodilators Continue Mucinex. Stop Atrovent due to dry mouth (9) Coronary artery disease: Code(s): I25.10 - Atherosclerotic heart disease of [place] coronary artery without angina pectoris Status: Acute Assessment and Plan: Stable. Scheduled for outpatient cardiac catheterization at [facility]. Does not need inpatient cardiac cath here per cardiology. Continue ASA, Plavix, Lopressor. Allergic to statin so Zetia added (10) Morbid obesity with BMI of 45.0-49.9, adult: Code(s): E66.01 - Morbid (severe) obesity due to excess calories; Z68.42 - Body mass index [BMI] 45.0-49.9, adult Status: Acute Assessment and Plan: BM
[2023-10-05 16:30] LABS: Glucose Point of Care 208 mg/dl (65-105)
[2023-10-05 17:43] LABS: Glucose Point of Care 205 mg/dl (65-105)
[2023-10-05] MEDS: PANTOPRAZOLE 40 MG TABLET PO (20:34)
[2023-10-05] MEDS: INSULIN GLARGINE (*BKC) 100 UNITS/ML 50 UNITS SUB-Q (20:35)
[2023-10-05 21:13] LABS: Glucose Point of Care 212 mg/dl (65-105)
[2023-10-05] MEDS: ALBUTEROL SULFATE NEB 2.5 MG/3 ML INH INHALATION (21:35)
[2023-10-06] VITALS (17 sets, daily range): BP systolic 102–154; BP diastolic 49–83; PULSE 62–80; RESP 15–20; TEMP 36.1–36.7; O2SAT 96–100
[2023-10-06] MEDS: ALBUTEROL SULFATE NEB 2.5 MG/3 ML INH INHALATION ×3 (03:19→13:40)
[2023-10-06 06:15] LABS: Hematocrit 30.2 % (37.0-47.0); Hemoglobin 9.4 g/dL (12.0-15.0); Mean Corpuscular HGB Conc 31.1 g/dl (32-36); Mean Corpuscular Hemoglobin 30.5 pg (26-34); Mean Corpuscular Volume 98.1 fl (80-100); Mean Platelet Volume 12.9 fl (7.4-10.4); Platelet Count Result 160 k/mm3 (150-375); Red Blood Count 3.08 M/mm3 (4.2-5.4); Red Cell Distribution Width 16.7 % (11.5-14.5); White Blood Count 5.9 K/mm3 (4.5-10.0)
[2023-10-06 06:45] LABS: Alanine Aminotransferase 14 U/L (6-35); Albumin Level 3.2 g/dL (3.5-5.1); Alkaline Phosphatase 57 U/L (38-126); Anion Gap 4 mmol/L (8-16); Aspartate Amino Transferase 27 U/L (14-36); Bilirubin,Total 0.3 mg/dL (0.2-1.3); Blood Urea Nitrogen 56 mg/dL (7-17); Calcium 8.5 mg/dL (8.4-10.2); Carbon Dioxide 30 mmol/L (22-30); Chloride 104 mmol/L (98-107); Estimated CRCL calculation 21 ml/min; Estimated Glomerular Filt Rate 17; Glucose 149 mg/dL (65-110); Magnesium 2.4 mg/dL (1.6-2.3); Phosphorus 5.1 mg/dL (2.5-4.5); Potassium 4.2 mmol/L (3.4-5.0); Sodium 138 mmol/L (137-145)
[2023-10-06 08:10] LABS: Glucose Point of Care 125 mg/dl (65-105)
--- NOTE | 2023-10-06 09:15 | PM.PNNEP ---
Progress Note: A&P Assessment and Plan (1) Chronic kidney disease, stage 3b: Code(s): N18.32 - Chronic kidney disease, stage 3b Status: Acute Assessment and Plan: The patient has chronic kidney disease stage IIIB. Her GFR ranges in the low 30s generally. This is from diabetes and hypertension. Sleep apnea may be playing a role as well. The patient also has acute kidney injury. Urine electrolytes and fractional excretion of urea show non pre renal status. CK is only mildly elevated, not consequential to renal function. Renal ultrasound is unremarkable Her GFR peter after she got the contrast. She also had been getting diuresed. Currently she is not on diuretics. The last dose she received was on 10/03. Her creatinine improved yesterday but is back up to 3.2 today. The patient is eating better and consumed more fluid yesterday than she had before. She was up in a chair yesterday for the which can sometimes mobilize some creatinine. Hopefully renal function will improve soon. The patient still has lots of swelling. Another discussion with the patient. I think we should hold off on diuretics for a little while until the kidney function is better. Then we can fold diuretics back in. (2) Essential hypertension: Code(s): I10 - Essential (primary) hypertension Status: Acute Assessment and Plan: Systolic ranging 120-150. This is overall better than her usual however is not so low that it would cause the creatinine to be higher. Will continue same medications. (3) Type 2 diabetes mellitus with hyperglycemia: Code(s): E11.65 - Type 2 diabetes mellitus with hyperglycemia Status: Acute Assessment and Plan: Patient is on Accu-Cheks and sliding-scale insulin. Management per hospitalists. (4) Edema: Code(s): R60.9 - Edema, unspecified Status: Acute Assessment and Plan: She has quite a bit of swelling. This is most likely due salt retention because of the kidneys but also because of sleep apnea. She is using her CPAP machine. As discussed above, hold diuretics for now. (5) Obstructive sleep apnea: Onset Date: ~04/2020 Code(s): G47.33 - Obstructive sleep apnea (adult) (pediatric) Status: Acute Assessment and Plan: The patient will be getting a CPAP at home. She is on a CPAP here in the hospital as well. Subjective Date/time seen: 10/06/23 09:15 Interval history: Patient is awake. Eating breakfast. Lying in semi-Lea's position. Still some swelling. She has a cough. She still has the same chest pain she had when she was admitted but now it has radiated around to the back. Exam Narrative: WDWN in NAD skin no rash or subQ nodules head ncat lungs clear bilaterally cor reg no rub or gallop abd BS+ nontender and soft ext 1-2+ bilateral edema. Objective Data Vital Signs Vital Signs: Vital Signs - 24 hr 10/05/23 09:50 10/05/23 10:03 10/05/23 10:19 Temperature Pulse Rate 75 72 70 Respiratory Rate 20 20 Blood Pressure Pulse Oximetry Oxygen Delivery Fraction of Inspired Oxygen 10/05/23 10:19 10/05/23 10:00 10/05/23 12:00 Temperature Pulse Rate 70 66 Respiratory Rate Blood Pressure Pulse Oximetry Oxygen Delivery Room Air Fraction of Inspired Oxygen 10/05/23 14:42 10/05/23 14:45 10/05/23 17:35 Temperature Pulse Rate 70 68 Respiratory Rate 20 20 22 H Blood Pressure Pulse Oximetry 100 Oxygen Delivery Fraction of Inspired Oxygen 10/05/23 16:00 10/05/23 20:00 10/05/23 20:34 Temperature 97.9 F 97.7 F Pulse Rate 65 64 78 Respiratory Rate 20 18 Blood Pressure 142/54 H 150/58 H Pulse Oximetry 99 100 Oxygen Delivery Fraction of Inspired Oxygen 10/05/23 20:34 10/05/23 20:30 10/05/23 21:35 Temperature Pulse Rate 78 78 72 Respiratory Rate 18 20 Blood Pressure Pulse Oximetry 100 Oxygen Delivery R
[2023-10-06 10:00] LABS: Glucose Point of Care 113 mg/dl (65-105)
[2023-10-06] MEDS: EZETIMIBE 10 MG TABLET PO (10:03)
[2023-10-06] MEDS: CLOPIDOGREL BISULFATE 75 MG TABLET PO (10:03)
[2023-10-06] MEDS: guaiFENesin 12 HR 600 MG TABCR PO ×2 (10:03→21:10)
[2023-10-06] MEDS: KETOROLAC 0.5% OP SOLN 5 ML BOTTLE 1 DROP RIGHT EYE ×3 (10:04→17:45)
[2023-10-06] MEDS: ASPIRIN 81 MG CHEWABLE TABLET PO (10:04)
[2023-10-06] MEDS: ENOXAPARIN 40 MG/0.4 ML SYRINGE SUB-Q (10:04)
[2023-10-06] MEDS: METOPROLOL TARTRATE 12.5 MG TABLET PO ×2 (10:04→21:10)
[2023-10-06] MEDS: METOPROLOL TARTRATE 25 MG TABLET PO ×2 (10:12→21:09)
--- NOTE | 2023-10-06 12:08 | PM.PNCARD ---
Progress Note: A&P Assessment and Plan (1) CHF exacerbation: Qualifiers: Heart failure type: unspecified Qualified Code(s): I50.9 - Heart failure, unspecified Code(s): I50.9 - Heart failure, unspecified Status: Acute Plan 73-year-old lady with morbid obesity and fluid overload on the basis of this. As I stated in my previous notes she does have diastolic left ventricular dysfunction but clearly is not in a state of congestive heart failure since she has been diuresed to the point of significant azotemia and diuretics have now been on hold for several days. Her creatinine is still higher today at 3.2 and I agree with her lugger that diuretics should be held for the time being. I did tell her to liberalize her p.o. water intake and also discussed with her that in my opinion she should not proceed with elective follow-up coronary angiography that was scheduled as an outpatient to occur sometime next week. Her renal function instability represents a relative contraindication to angiography Earl Arcos MD [facility] Subjective Date/time seen: date of service:10/06/23 12:08 Interval history: Reason for visit: Acute on chronic diastolic heart failure HPI: This is a 73-year-old woman I am seeing at the request of the hospitalist because of the diagnosis of CHF exacerbation.? She is known to Dr. Sanchez of our practice but I do not believe I have seen this lady in the past.? She has a history of chronic coronary artery disease and a history of diastolic left ventricular dysfunction by evaluation that has been done over the last several years in our office.? She was found to have coronary artery disease when she presented to this hospital with ACS back in 2020.? She was brought to the cardiac catheterization lab and found to have multivessel coronary disease including high-grade ostial stenosis of the LAD.? She was referred to [facility] for surgical revascularization.? She received an DANA graft to the LAD, a radial graft to the PDA and a saphenous vein graft to the OM.? She has been seeing Dr. Sanchez since then and chronically has complaints of shortness of breath and variable amounts of lower extremity edema which has been attributed to morbid obesity and the concept that she also may have lymphedema.? She has had recent stress tests and echocardiograms demonstrating normal left ventricular systolic function.? During her most recent office visit she continued re complain of exertional dyspnea and so a Lexiscan nuclear stress test was done to ensure there was a ischemic burden.? That study was done in our office on 09/28/2023.? It was interpreted by my partner is showing evidence of an ejection fraction of 58% and there was evidence of severe multivessel ischemia with several ischemic defects being identified.? Interpreting this of course has to be taken indigo account her BMI of 55.? Because of these findings follow-up left heart catheterization was recommended and is currently scheduled to be done in the last week of this month over at [facility] as an outpatient.Her ongoing symptoms of shortness of breath and edema made her concerned and she came back to this hospital and was once again readmitted to the hospital. Upon coming into her room she does not appear to be and any distress.She is also reporting difficulty with early satiety bloating and difficulty beginning nauseated and bloating following eating small amounts of food.? Date of service 09/28: Still has some shortness of breath. Diuresing well. Date of service 09/29: Gets shortness of breath that improves with breathing treatments. Her mouth feels dry. Date of service 10/01/2023: She feels weak and tired. Describes a pain in her right upper chest with deep breathing. Date of service 10/03/2023: Patient has multiple complaints. Feels weak, tired, shaky at times, dizzy with ambulation, short of breath, burning in right upper chest with br
[2023-10-06 12:48] LABS: Glucose Point of Care 118 mg/dl (65-105)
--- NOTE | 2023-10-06 14:08 | PM.IMPN ---
Progress Note: A&P Assessment and Plan (1) KEZIA (acute kidney injury): Code(s): N17.9 - Acute kidney failure, unspecified Status: Acute Assessment and Plan: Baseline Cr 1.6-1.8 range. Cr 1.6 on admission but climbed to 3.2 Etiology probably related to contrast, diuretics, ARB and underlying renal disease Renal US showing no acute findings. Tolerated intermittent doses of Bumex Nephrology following and appreciate their input. Holding Lyrica. On a renal diet Cr stable 3.2 UOP 2750 yesterday Continue to monitor UOP, renal function and electrolytes (2) Acute on chronic heart failure with preserved ejection fraction: Code(s): I50.33 - Acute on chronic diastolic (congestive) heart failure Status: Acute Assessment and Plan: Patient presents with SOB and evidence of fluid overload. Echo 09/27 with LVEF 60-65%, grade 1 diastolic dysfunction, mild biatrial enlargement, mild tricupsid regurgitation. Diuretics started but held 09/29 due to rising Cr. Started Jardiance 10mg once daily but will hold for now. Plan to add Spironolactone (once renal function stabilizes) Nephrology and Cardiology following Cr 1.6 on 09/26 but climbed to 3.2 Bumex once 10/01 and again 10/02 Good UOP with Bumex Continue to monitor daily weights, UOP, I/O's (3) Lung infiltrate: Code(s): R91.8 - Other nonspecific abnormal finding of lung field Status: Acute Assessment and Plan: DDimer was positive but CTA chest showing no PE and LE venous doppler negative for DVT. 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 No PE by CTA. Suspect chronic musculoskeletal pain that worsened due to tachypnea and cough. Symptomatic care. CT did show small pulmonary nodules with interval change in distribution, may be a component of edema or infection Possible pneumonia so she was restarted on Rocephin and azithromycin. She completed abx. Off abx 10/03 Repeat CXR is clear (4) Type 2 diabetes mellitus with hyperglycemia: Code(s): E11.65 - Type 2 diabetes mellitus with hyperglycemia Status: Acute Assessment and Plan: A1c 10.2. The patient's blood glucose was reviewed on 10/05 She is on Lantus 50U HS and Novolog 15U AC Glucose remains well controlled. Continue AccuCheks covering with sliding scale. Hypoglycemia protocol available as needed. Continue to monitor. Hold Novolog if Glucose<120 (5) Essential hypertension: Code(s): I10 - Essential (primary) hypertension Status: Acute Assessment and Plan: Patient's blood pressure was reviewed on 10/05 Blood pressure remains well controlled. Will continue to follow (6) Chronic kidney disease, stage 3: Code(s): N18.3 - Chronic kidney disease, stage 3 (moderate) Status: Chronic Assessment and Plan: As above (7) FILI (obstructive sleep apnea): Code(s): G47.33 - Obstructive sleep apnea (adult) (pediatric) Status: Acute Assessment and Plan: Compliant with treatment Continue the same (8) COPD (chronic obstructive pulmonary disease): Code(s): J44.9 - Chronic obstructive pulmonary disease, unspecified Status: Acute Assessment and Plan: No wheezing appreciated. On bronchodilators Continue Mucinex. Change Albuterol to prn (9) Coronary artery disease: Code(s): I25.10 - Atherosclerotic heart disease of [place] coronary artery without angina pectoris Status: Acute Assessment and Plan: Stable. Scheduled for outpatient cardiac catheterization at [facility]. Does not need inpatient cardiac cath here per cardiology. Continue ASA, Plavix, Lopressor. Allergic to statin so Zetia added (10) Morbid obesity with BMI of 45.0-49.9, adult: Code(s): E66.01 - Morbid (severe) obesity due to excess calories; Z68.42 - Body mass index [BMI] 45.0-49.9, adult Status: Acute Assessment and Plan: BMI 57. This is
[2023-10-06 17:44] LABS: Glucose Point of Care 217 mg/dl (65-105)
[2023-10-06] MEDS: INSULIN ASPART (*BKC) 100 UNITS/ML 15 UNITS SUB-Q (17:45)
[2023-10-06 20:11] LABS: Glucose Point of Care 227 mg/dl (65-105)
[2023-10-06] MEDS: INSULIN GLARGINE (*BKC) 100 UNITS/ML 50 UNITS SUB-Q (21:08)
[2023-10-06] MEDS: PANTOPRAZOLE 40 MG TABLET PO (21:10)
[2023-10-07] VITALS (11 sets, daily range): BP systolic 126–146; BP diastolic 43–75; PULSE 60–76; RESP 16–20; TEMP 36.3–36.6; O2SAT 97–100
[2023-10-07 05:43] LABS: Hematocrit 30.9 % (37.0-47.0); Hemoglobin 9.7 g/dL (12.0-15.0); Mean Corpuscular HGB Conc 31.4 g/dl (32-36); Mean Corpuscular Hemoglobin 30.5 pg (26-34); Mean Corpuscular Volume 97.2 fl (80-100); Mean Platelet Volume 13.2 fl (7.4-10.4); Platelet Count Result 156 k/mm3 (150-375); Red Blood Count 3.18 M/mm3 (4.2-5.4); Red Cell Distribution Width 16.8 % (11.5-14.5); White Blood Count 5.7 K/mm3 (4.5-10.0)
[2023-10-07 05:54] LABS: Albumin Level 3.4 g/dL (3.5-5.1); Anion Gap 3 mmol/L (8-16); Blood Urea Nitrogen 50 mg/dL (7-17); Calcium 8.5 mg/dL (8.4-10.2); Carbon Dioxide 31 mmol/L (22-30); Chloride 105 mmol/L (98-107); Estimated CRCL calculation 23 ml/min; Estimated Glomerular Filt Rate 18; Glucose 138 mg/dL (65-110); Phosphorus 4.8 mg/dL (2.5-4.5); Sodium 139 mmol/L (137-145)
[2023-10-07] MEDS: ALBUTEROL SULFATE NEB 2.5 MG/3 ML INH INHALATION (07:36)
[2023-10-07 08:14] LABS: Glucose Point of Care 85 mg/dl (65-105)
[2023-10-07] MEDS: CLOPIDOGREL BISULFATE 75 MG TABLET PO (09:45)
[2023-10-07] MEDS: KETOROLAC 0.5% OP SOLN 5 ML BOTTLE 1 DROP RIGHT EYE ×3 (09:45→18:30)
[2023-10-07] MEDS: ERGOCALCIFEROL 50,000 UNITS CAPSULE 50000 UNITS PO (09:45)
[2023-10-07] MEDS: EZETIMIBE 10 MG TABLET PO (09:45)
[2023-10-07] MEDS: ENOXAPARIN 40 MG/0.4 ML SYRINGE SUB-Q (09:45)
[2023-10-07] MEDS: guaiFENesin 12 HR 600 MG TABCR PO ×2 (09:45→21:25)
[2023-10-07] MEDS: FAMOTIDINE 20 MG TABLET 40 MG PO (09:45)
[2023-10-07] MEDS: LIDOCAINE 5% PATCH 1 PATCH TRANSDERM (09:45)
[2023-10-07] MEDS: METOPROLOL TARTRATE 12.5 MG TABLET PO ×2 (09:45→21:24)
[2023-10-07] MEDS: ASPIRIN 81 MG CHEWABLE TABLET PO (09:45)
[2023-10-07] MEDS: METOPROLOL TARTRATE 25 MG TABLET PO ×2 (09:46→21:25)
[2023-10-07 11:47] LABS: Glucose Point of Care 132 mg/dl (65-105)
[2023-10-07] MEDS: INSULIN ASPART (*BKC) 100 UNITS/ML 15 UNITS SUB-Q (12:10)
--- NOTE | 2023-10-07 14:28 | PM.PNNEP ---
Progress Note: A&P Assessment and Plan (1) Chronic kidney disease, stage 3b: Code(s): N18.32 - Chronic kidney disease, stage 3b Status: Acute Assessment and Plan: The patient has chronic kidney disease stage IIIB. Her GFR ranges in the low 30s generally. This is from diabetes and hypertension. Sleep apnea may be playing a role as well. The patient also has acute kidney injury. Urine electrolytes and fractional excretion of urea show non pre renal status. CK is only mildly elevated, not consequential to renal function. Renal ultrasound is unremarkable Her GFR peter after she got the contrast. She also had been getting diuresed. Currently she is not on diuretics. The last dose she received was on 10/03. She has not had any diuretics for couple of days. Her creatinine has been up and down around 3. Today it is 3.0. She has been up in a chair which can sometimes mobilize some creatinine. Hopefully renal function will improve soon. The patient still has lots of swelling. Another discussion with the patient, as above. I think we should hold off on diuretics for a little while until the kidney function is better. Then we can fold diuretics back in. Will check a renal scan tomorrow to make sure there is nothing else going on. Check more labs tomorrow (2) Essential hypertension: Code(s): I10 - Essential (primary) hypertension Status: Acute Assessment and Plan: Systolic ranging 120-150. This is overall better than her usual however is not so low that it would cause the creatinine to be higher. Will continue same medications. (3) Type 2 diabetes mellitus with hyperglycemia: Code(s): E11.65 - Type 2 diabetes mellitus with hyperglycemia Status: Acute Assessment and Plan: Patient is on Accu-Cheks and sliding-scale insulin. Management per hospitalists. (4) Edema: Code(s): R60.9 - Edema, unspecified Status: Acute Assessment and Plan: She has quite a bit of swelling. This is most likely due salt retention because of the kidneys but also because of sleep apnea. She is using her CPAP machine. As discussed above, hold diuretics for now. (5) Obstructive sleep apnea: Onset Date: ~04/2020 Code(s): G47.33 - Obstructive sleep apnea (adult) (pediatric) Status: Acute Assessment and Plan: The patient will be getting a CPAP at home. She is on a CPAP here in the hospital as well. Subjective Date/time seen: 10/07/23 14:28 Interval history: Patient is alert. Son in the room. The patient is very frustrated with her kidney issues. We had a long discussion. Unfortunately her kidney function isn't getting much better. It is not clear why. Perhaps she has ATN. Will check a renal scan to see. Reviewed things to protect her kidneys. She has been doing all of this already. Her sugars are pretty good. Her blood pressure is good. She was on irbesartan before but this is on hold of course because of the KEZIA. She avoids large amounts of protein in her diet. She does have sleep apnea. She has been using the CPAP machine while here. The only other thing she can do would be to lose weight. She has some trouble differentiating between water weight and body weight. We discussed that to lower her BMI she should avoid carbs and eat only if hungry but not eat until full. She already does this she says. To reduce her swelling low-salt diet is the only dietary way she can help herself with this. We discussed using more diuretics but she does not want to do this because of her renal insufficiency. She did complain of some shortness of breath but she is not on oxygen. She certainly is very swollen. At this point I would suggest holding off on the diuretics for another day and reassessing tomorrow. Her GFR is 18. Dialysis would start at around 10 so she does not need to start dialysis now. Exam Narrative: WDWN in NAD skin
[2023-10-07 16:51] LABS: Glucose Point of Care 114 mg/dl (65-105)
--- NOTE | 2023-10-07 17:24 | PM.IMPN ---
Progress Note: A&P Assessment and Plan (1) KEZIA (acute kidney injury): Code(s): N17.9 - Acute kidney failure, unspecified Status: Acute Assessment and Plan: Baseline Cr 1.6-1.8 range. Cr 1.6 on admission but climbed to 3.2 Etiology related to contrast, diuretics, ARB with underlying renal disease Renal US showing no acute findings. Tolerated intermittent doses of Bumex Nephrology following and appreciate their input. Holding Lyrica. On a low potassium diet Cr better at 3 UOP 1550 yesterday Nuclear med renal scan ordered. Continue to monitor UOP, renal function and electrolytes (2) Acute on chronic heart failure with preserved ejection fraction: Code(s): I50.33 - Acute on chronic diastolic (congestive) heart failure Status: Acute Assessment and Plan: Patient presents with SOB and evidence of fluid overload. Echo 09/27 with LVEF 60-65%, Grade 1 diastolic dysfunction, mild biatrial enlargement, mild TR. Started Jardiance 10mg once daily but on hold now. Plan to add Spironolactone (once renal function stabilizes) Diuretics started but held 09/29 due to rising Cr. Nephrology and Cardiology following Bumex 10/01 and again 10/02 but not since CXR clear now Continue to monitor daily weights, UOP, I/O's (3) Lung infiltrate: Code(s): R91.8 - Other nonspecific abnormal finding of lung field Status: Acute Assessment and Plan: DDimer was positive but CTA chest showing no PE and LE venous doppler negative for DVT. 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 Suspect chronic musculoskeletal pain that worsened due to tachypnea and cough. Lidocaine patch ordered. Symptomatic care. CT did show small pulmonary nodules with interval change in distribution, may be a component of edema or infection Possible pneumonia so she was on Rocephin and azithromycin. She completed abx; off abx 10/03 Repeat CXR 10/05 is clear. PNA resolved (4) Type 2 diabetes mellitus with hyperglycemia: Code(s): E11.65 - Type 2 diabetes mellitus with hyperglycemia Status: Acute Assessment and Plan: A1c 10.2. The patient's blood glucose was reviewed on 10/06 She is on Lantus 50U HS and Novolog 15U AC Glucose remains well controlled. Continue AccuCheks covering with sliding scale. Hypoglycemia protocol available as needed. Continue to monitor. Hold Novolog if Glucose<120. Back down on lantus (5) Essential hypertension: Code(s): I10 - Essential (primary) hypertension Status: Acute Assessment and Plan: Patient's blood pressure was reviewed on 10/06 Blood pressure remains well controlled. Will continue to follow (6) Chronic kidney disease, stage 3: Code(s): N18.3 - Chronic kidney disease, stage 3 (moderate) Status: Chronic Assessment and Plan: As above (7) FILI (obstructive sleep apnea): Code(s): G47.33 - Obstructive sleep apnea (adult) (pediatric) Status: Acute Assessment and Plan: Compliant with treatment Continue the same (8) COPD (chronic obstructive pulmonary disease): Code(s): J44.9 - Chronic obstructive pulmonary disease, unspecified Status: Acute Assessment and Plan: No wheezing appreciated. On bronchodilators Continue Mucinex; Albuterol available prn (9) Coronary artery disease: Code(s): I25.10 - Atherosclerotic heart disease of [place] coronary artery without angina pectoris Status: Acute Assessment and Plan: Stable. Scheduled for outpatient cardiac catheterization at [facility]. Does not need inpatient cardiac cath here per cardiology. Continue ASA, Plavix, Lopressor. Allergic to statin so Zetia added (10) Morbid obesity with BMI of 45.0-49.9, adult: Code(s): E66.01 - Morbid (severe) obesity due to excess calories; Z68.42 - Body mass index [BMI] 45.0-49.9, adult Status: Acute Assessment and Plan:
[2023-10-07] MEDS: polyethylene glycoL 3350 17 GM POWD.PACK PO (18:30)
[2023-10-07] MEDS: CYCLOBENZAPRINE HCL 5 MG TABLET PO (21:24)
[2023-10-07] MEDS: PANTOPRAZOLE 40 MG TABLET PO (21:26)
[2023-10-07 21:41] LABS: Glucose Point of Care 170 mg/dl (65-105)
[2023-10-08] VITALS (10 sets, daily range): BP systolic 121–156; BP diastolic 35–79; PULSE 55–72; RESP 17–20; TEMP 35.9–36.6; O2SAT 95–100
[2023-10-08 05:17] LABS: Hematocrit 30.7 % (37.0-47.0); Hemoglobin 9.3 g/dL (12.0-15.0); Immature Platelet Fraction Pct 10.3 % (0.9-11.2); Mean Corpuscular HGB Conc 30.3 g/dl (32-36); Mean Corpuscular Hemoglobin 30.3 pg (26-34); Mean Platelet Volume 12.7 fl (7.4-10.4); Platelet Count Result 143 k/mm3 (150-375); Red Blood Count 3.07 M/mm3 (4.2-5.4); Red Cell Distribution Width 16.6 % (11.5-14.5); White Blood Count 5.9 K/mm3 (4.5-10.0)
[2023-10-08 05:35] LABS: Albumin Level 3.3 g/dL (3.5-5.1); Anion Gap 5 mmol/L (8-16); Blood Urea Nitrogen 49 mg/dL (7-17); Calcium 8.4 mg/dL (8.4-10.2); Carbon Dioxide 27 mmol/L (22-30); Chloride 108 mmol/L (98-107); Estimated CRCL calculation 26 ml/min; Estimated Glomerular Filt Rate 21; Glucose 173 mg/dL (65-110); Phosphorus 4.3 mg/dL (2.5-4.5); Potassium 3.9 mmol/L (3.4-5.0); Sodium 140 mmol/L (137-145)
[2023-10-08 08:31] LABS: Glucose Point of Care 150 mg/dl (65-105)
[2023-10-08] MEDS: ENOXAPARIN 30 MG/0.3 ML SYRINGE SUB-Q (09:21)
[2023-10-08] MEDS: EZETIMIBE 10 MG TABLET PO (09:22)
[2023-10-08] MEDS: CLOPIDOGREL BISULFATE 75 MG TABLET PO (09:22)
[2023-10-08] MEDS: METOPROLOL TARTRATE 25 MG TABLET PO ×2 (09:22→20:21)
[2023-10-08] MEDS: guaiFENesin 12 HR 600 MG TABCR PO ×2 (09:22→20:21)
[2023-10-08] MEDS: ASPIRIN 81 MG CHEWABLE TABLET PO (09:23)
[2023-10-08] MEDS: METOPROLOL TARTRATE 12.5 MG TABLET PO ×2 (09:23→20:22)
[2023-10-08] MEDS: INSULIN ASPART (*BKC) 100 UNITS/ML 15 UNITS SUB-Q ×2 (09:23→17:26)
[2023-10-08] MEDS: KETOROLAC 0.5% OP SOLN 5 ML BOTTLE 1 DROP RIGHT EYE ×2 (09:23→17:00)
[2023-10-08] MEDS: polyethylene glycoL 3350 17 GM POWD.PACK PO (09:23)
[2023-10-08] MEDS: FAMOTIDINE 20 MG TABLET 40 MG PO (09:23)
--- NOTE | 2023-10-08 10:48 | PM.PNNEP ---
Progress Note: A&P Assessment and Plan (1) KEZIA (acute kidney injury): Code(s): N17.9 - Acute kidney failure, unspecified Status: Acute Assessment and Plan: slight improvement by AM labs suspicion falls on contrast nephropathy in conjunction with diuretic therapy evaluation to date noted: urine electrolytes pre-renal (by FeNA) renal ultrasound unremarkable CPK only mildly elevated - not likely to have affected kidney function moderate proteinuria diuretics on hold currently renal scan to be done today follow repeat labs and UOP (2) Chronic kidney disease, stage 3b: Code(s): N18.32 - Chronic kidney disease, stage 3b Status: Chronic Assessment and Plan: baseline creatinine runs in the 2ish range (but has fluctuated to extremes...) this translates to a GFR in the low 30s range etiology is due to hypertension, diabetes, and age-related change with some contributions from FILI and chronic diuretic therapy (3) Acute on chronic heart failure with preserved ejection fraction: Code(s): I50.33 - Acute on chronic diastolic (congestive) heart failure Status: Acute Assessment and Plan: suspected based on presentation of SOB and evidence of fluid overload recent Echo noted: LVEF 60-65%, frade 1 diastolic dysfunction, mild biatrial enlargement, mild TR appears compensated at this time diuretics on hold due to #1 continue to monitor daily weights, urine output, and I/O's Cardiology recommendations noted - plan to add Jardiance and spironolactone once renal function improves (4) Edema: Code(s): R60.9 - Edema, unspecified Status: Acute Assessment and Plan: significant and chronic issue likely due to a combination of salt/fluid retention (from kidney disease), proteinuria, diastolic heart failure, FILI, and chronic lymphedema diuretics on hold due to #1 -- will eventually restart once creatininie starts to improve continue treatment of her FILI elevate legs as tolerated follow-up with lymphedema clinic as outpatient (5) Essential hypertension: Code(s): I10 - Essential (primary) hypertension Status: Chronic Assessment and Plan: reasonable control continue current medications follow trend of hemodynamics (6) Type 2 diabetes mellitus with hyperglycemia: Code(s): E11.65 - Type 2 diabetes mellitus with hyperglycemia Status: Chronic Assessment and Plan: follow accu-cheks glycemic control per hospitalists Will continue to follow. Subjective Date/time seen: 03/18/24 10:48 Interval history: Follow-up for acute kidney injury/acute renal failure on chronic kidney disease. Chart reviewed -- assuming care from Dr. Pulliam; reports some intermittent shortness of breath with on/off coughing but no different in the last few days; LE edema still present but seems stable if not a little bit better; no apparent distress voiced at the time of my visit. Exam Narrative: General: elderly but WD/WN female in NAD Heart: normal S1 and S2; no rub Lungs: clear anteriorly; decreased at bases Abdomen: soft, nontender, nondistended, positive bowel sounds Extremities: no cyanosis or clubbing; 1 - 2+ edema Skin: warm and dry Objective Data Vital Signs Vital Signs: Vital Signs Temp Pulse Resp BP Pulse Ox O2 Del Method 10/08/23 10:35 96.6 F L 63 17 147/57 H 100 10/08/23 09:20 Room Air 10/08/23 09:23 68 10/08/23 09:22 68 10/08/23 08:57 95 Room Air 10/08/23 08:31 97.1 F L 61 17 121/35 L 100 10/08/23 00:30 Autopap 10/07/23 20:00 97.6 F 62 18 126/75 100 10/07/23 20:00 Room Air 10/07/23 21:25 62 10/07/23 21:24 62 10/07/23 18:26 97.8 F 60 17 146/47 H 100 Intake/Output Intake/Output: Intake & Output 10/05/23 10/06/23 10/07/23 10/08/23 23:59 23:59 23:59 23:59 Intake Total 2880 1030 1460 24
--- NOTE | 2023-10-08 10:48 | P.PNNP_ITS ---
Progress Note: A&P Assessment and Plan (1) KEZIA (acute kidney injury): Code(s): N17.9 - Acute kidney failure, unspecified Status: Acute Assessment and Plan: * slight improvement by AM labs * suspicion falls on contrast nephropathy in conjunction with diuretic therapy * evaluation to date noted: * urine electrolytes pre-renal (by FeNA) * renal ultrasound unremarkable * CPK only mildly elevated - not likely to have affected kidney function * moderate proteinuria * diuretics on hold currently * renal scan to be done today * follow repeat labs and UOP (2) Chronic kidney disease, stage 3b: Code(s): N18.32 - Chronic kidney disease, stage 3b Status: Chronic Assessment and Plan: * baseline creatinine runs in the 2ish range (but has fluctuated to extremes...) * this translates to a GFR in the low 30s range * etiology is due to hypertension, diabetes, and age-related change with some contributions from FILI and chronic diuretic therapy (3) Acute on chronic heart failure with preserved ejection fraction: Code(s): I50.33 - Acute on chronic diastolic (congestive) heart failure Status: Acute Assessment and Plan: * suspected based on presentation of SOB and evidence of fluid overload * recent Echo noted: LVEF 60-65%, frade 1 diastolic dysfunction, mild biatrial enlargement, mild TR * appears compensated at this time * diuretics on hold due to #1 * continue to monitor daily weights, urine output, and I/O's * Cardiology recommendations noted - plan to add Jardiance and spironolactone once renal function improves (4) Edema: Code(s): R60.9 - Edema, unspecified Status: Acute Assessment and Plan: * significant and chronic issue * likely due to a combination of salt/fluid retention (from kidney disease), proteinuria, diastolic heart failure, FILI, and chronic lymphedema * diuretics on hold due to #1 -- will eventually restart once creatininie starts to improve * continue treatment of her FILI * elevate legs as tolerated * follow-up with lymphedema clinic as outpatient (5) Essential hypertension: Code(s): I10 - Essential (primary) hypertension Status: Chronic Assessment and Plan: * reasonable control * continue current medications * follow trend of hemodynamics (6) Type 2 diabetes mellitus with hyperglycemia: Code(s): E11.65 - Type 2 diabetes mellitus with hyperglycemia Status: Chronic Assessment and Plan: * follow accu-cheks * glycemic control per hospitalists Will continue to follow. Subjective Date/time seen: 10/08/23 10:48 Interval history: Follow-up for acute kidney injury/acute renal failure on chronic kidney disease. Chart reviewed -- assuming care from Dr. Pulliam; reports some intermittent shortness of breath with on/off coughing but no different in the last few days; LE edema still present but seems stable if not a little bit better; no apparent distress voiced at the time of my visit. Exam Narrative: General: elderly but WD/WN female in NAD Heart: normal S1 and S2; no rub Lungs: clear anteriorly; decreased at bases Abdomen: soft, nontender, nondistended, positive bowel sounds Extremities: no cyanosis or clubbing; 1 - 2+ edema Skin: warm and dry Objective Data Vital Signs Vital Signs: Vital Signs Temp Pulse Resp BP Pulse Ox O2 Del Method
[2023-10-08 11:39] LABS: Glucose Point of Care 205 mg/dl (65-105)
--- NOTE | 2023-10-08 15:50 | PM.IMPN ---
Progress Note: A&P Assessment and Plan (1) KEZIA (acute kidney injury): Code(s): N17.9 - Acute kidney failure, unspecified Status: Acute Assessment and Plan: Baseline Cr 1.6-1.8 range. Cr 1.6 on admission but climbed to 3.2 Etiology related to contrast, diuretics, ARB with underlying renal disease Renal US showing no acute findings. Tolerated intermittent doses of Bumex Nephrology following and appreciate their input. Holding Lyrica. On a low potassium diet Cr better at 2.7 UOP 1100 yesterday Nuclear med renal scan ordered showing symmetric renal fxn with borderline delayed clearance. Could be resolving ATN Continue to monitor UOP, renal function and electrolytes (2) Acute on chronic heart failure with preserved ejection fraction: Code(s): I50.33 - Acute on chronic diastolic (congestive) heart failure Status: Acute Assessment and Plan: Patient presents with SOB and evidence of fluid overload. Echo 09/27 with LVEF 60-65%, Grade 1 diastolic dysfunction, mild biatrial enlargement, mild TR. Started Jardiance 10mg once daily but on hold now. Plan to add Spironolactone (once renal function stabilizes) Diuretics started but held 09/29 due to rising Cr. Nephrology and Cardiology following Bumex 10/01 and again 10/02 but not since CXR clear 10/05 Continue to monitor daily weights, UOP, I/O's (3) Lung infiltrate: Code(s): R91.8 - Other nonspecific abnormal finding of lung field Status: Acute Assessment and Plan: DDimer was positive but CTA chest showing no PE and LE venous doppler negative for DVT. 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 Suspect chronic musculoskeletal pain that worsened due to tachypnea and cough. Lidocaine patch ordered. Symptomatic care. CT did show small pulmonary nodules with interval change in distribution, may be a component of edema or infection Possible pneumonia so she was on Rocephin and azithromycin. She completed abx; off abx 10/03 Repeat CXR 10/05 is clear. PNA resolved Rib xray negative for fracture and no evidence of shingles Symptomatic care (4) Type 2 diabetes mellitus with hyperglycemia: Code(s): E11.65 - Type 2 diabetes mellitus with hyperglycemia Status: Acute Assessment and Plan: A1c 10.2. The patient's blood glucose was reviewed on 10/07 She is on Lantus 42U HS and Novolog 15U AC Glucose remains well controlled. Continue AccuCheks covering with sliding scale. Hypoglycemia protocol available as needed. Continue to monitor. Hold Novolog if Glucose<120. (5) Essential hypertension: Code(s): I10 - Essential (primary) hypertension Status: Acute Assessment and Plan: Patient's blood pressure was reviewed on 10/07 Blood pressure remains well controlled. Will continue to follow (6) Chronic kidney disease, stage 3: Code(s): N18.3 - Chronic kidney disease, stage 3 (moderate) Status: Chronic Assessment and Plan: As above (7) FILI (obstructive sleep apnea): Code(s): G47.33 - Obstructive sleep apnea (adult) (pediatric) Status: Acute Assessment and Plan: Compliant with treatment Continue the same (8) COPD (chronic obstructive pulmonary disease): Code(s): J44.9 - Chronic obstructive pulmonary disease, unspecified Status: Acute Assessment and Plan: No wheezing appreciated but coarse today. Continue Mucinex; Albuterol available prn (9) Coronary artery disease: Code(s): I25.10 - Atherosclerotic heart disease of [place] coronary artery without angina pectoris Status: Acute Assessment and Plan: Stable. Scheduled for outpatient cardiac catheterization at [facility]. Does not need inpatient cardiac cath here per cardiology. Continue ASA, Plavix, Lopressor. Allergic to statin so Zetia added (10) Morbid obesity with BMI of 45.0-49.9, adult: Code(s): E66.0
[2023-10-08] MEDS: ALBUTEROL SULFATE NEB 2.5 MG/3 ML INH INHALATION (16:05)
[2023-10-08 17:08] LABS: Glucose Point of Care 120 mg/dl (65-105)
[2023-10-08] MEDS: PANTOPRAZOLE 40 MG TABLET PO (20:21)
[2023-10-08 23:23] LABS: Glucose Point of Care 114 mg/dl (65-105)
[2023-10-09] VITALS (9 sets, daily range): BP systolic 136–142; BP diastolic 49–59; PULSE 60–75; RESP 16–19; TEMP 36.5–36.7; O2SAT 96–100
[2023-10-09 06:09] LABS: Albumin Level 3.3 g/dL (3.5-5.1); Anion Gap 3 mmol/L (8-16); Blood Urea Nitrogen 42 mg/dL (7-17); Calcium 8.5 mg/dL (8.4-10.2); Carbon Dioxide 28 mmol/L (22-30); Chloride 109 mmol/L (98-107); Estimated CRCL calculation 29 ml/min; Estimated Glomerular Filt Rate 24; Glucose 117 mg/dL (65-110); Magnesium 2.6 mg/dL (1.6-2.3); Potassium 4.2 mmol/L (3.4-5.0); Sodium 140 mmol/L (137-145)
[2023-10-09 06:35] LABS: Basophils Percent Auto 0.4 % (0.2-1.2); Eosinophils Absolute Auto 0.2 K/mm3 (0-0.3); Eosinophils Percent Auto 3.6 % (0-4.4); Hematocrit 30.1 % (37.0-47.0); Hemoglobin 9.4 g/dL (12.0-15.0); Immature Granulocyte Absolute 0.02 K/mm3 (0.00-0.031); Immature Granulocyte Percent A 0.3 % (0-0.5); Immature Platelet Fraction Pct 10.3 % (0.9-11.2); Lymphocytes Absolute Auto 1.55 K/mm3 (0.9-3.2); Lymphocytes Percent Auto 23.2 % (18.3-44.2); Mean Corpuscular HGB Conc 31.2 g/dl (32-36); Mean Corpuscular Hemoglobin 30.5 pg (26-34); Mean Corpuscular Volume 97.7 fl (80-100); Mean Platelet Volume 13.7 fl (7.4-10.4); Monocytes Percent Auto 14.7 % (2.6-8.5); Neutrophils Absolute Auto 3.9 K/mm3 (1.3-6.7); Neutrophils Percent Auto 57.8 % (45.5-73.1); Platelet Count Result 137 k/mm3 (150-375); Red Blood Count 3.08 M/mm3 (4.2-5.4); Red Cell Distribution Width 16.7 % (11.5-14.5); White Blood Count 6.7 K/mm3 (4.5-10.0)
[2023-10-09 08:43] LABS: Glucose Point of Care 132 mg/dl (65-105)
[2023-10-09] MEDS: KETOROLAC 0.5% OP SOLN 5 ML BOTTLE 1 DROP RIGHT EYE ×2 (09:42→12:19)
[2023-10-09] MEDS: CLOPIDOGREL BISULFATE 75 MG TABLET PO (09:43)
[2023-10-09] MEDS: FAMOTIDINE 20 MG TABLET 40 MG PO (09:43)
[2023-10-09] MEDS: ASPIRIN 81 MG CHEWABLE TABLET PO (09:43)
[2023-10-09] MEDS: guaiFENesin 12 HR 600 MG TABCR PO ×2 (09:43→20:34)
[2023-10-09] MEDS: EZETIMIBE 10 MG TABLET PO (09:43)
[2023-10-09] MEDS: METOPROLOL TARTRATE 12.5 MG TABLET PO ×2 (09:43→20:34)
[2023-10-09] MEDS: METOPROLOL TARTRATE 25 MG TABLET PO ×2 (09:43→20:34)
[2023-10-09] MEDS: INSULIN ASPART (*BKC) 100 UNITS/ML 15 UNITS SUB-Q ×2 (09:44→12:19)
[2023-10-09] MEDS: LIDOCAINE 5% PATCH 1 PATCH TRANSDERM (09:44)
[2023-10-09] MEDS: ENOXAPARIN 40 MG/0.4 ML SYRINGE SUB-Q (09:44)
[2023-10-09 11:57] LABS: Glucose Point of Care 211 mg/dl (65-105)
--- NOTE | 2023-10-09 12:03 | P.PNNP_ITS ---
Progress Note: A&P Assessment and Plan (1) KEZIA (acute kidney injury): Code(s): N17.9 - Acute kidney failure, unspecified Status: Acute Assessment and Plan: * slight improvement by AM labs * suspicion falls on contrast nephropathy in conjunction with diuretic therapy * evaluation to date noted: * urine electrolytes pre-renal (by FeNA) * renal ultrasound unremarkable * CPK only mildly elevated - not likely to have affected kidney function * moderate proteinuria * renal scan with uptake but delayed clearance suggestive of ATN * will give a trial dose of IV bumex today * follow repeat labs and UOP (2) Chronic kidney disease, stage 3b: Code(s): N18.32 - Chronic kidney disease, stage 3b Status: Chronic Assessment and Plan: * baseline creatinine runs in the 2ish range (but has fluctuated to extremes...) * this translates to a GFR in the low 30s range * etiology is due to hypertension, diabetes, and age-related change with some contributions from FILI and chronic diuretic therapy (3) Acute on chronic heart failure with preserved ejection fraction: Code(s): I50.33 - Acute on chronic diastolic (congestive) heart failure Status: Acute Assessment and Plan: * suspected based on presentation of SOB and evidence of fluid overload * recent Echo noted: LVEF 60-65%, frade 1 diastolic dysfunction, mild biatrial e nlargement, mild TR * appears compensated at this time * diuretics were on hold due to #1 -- will IV bumex today x 1 * continue to monitor daily weights, urine output, and I/O's * Cardiology recommendations noted - plan to add Jardiance and spironolactone once renal function improves (4) Edema: Code(s): R60.9 - Edema, unspecified Status: Acute Assessment and Plan: * significant and chronic issue * likely due to a combination of salt/fluid retention (from kidney disease), proteinuria, diastolic heart failure, FILI, and chronic lymphedema * diuretics on hold due to #1 -- dose with IV bumex today * continue treatment of her FILI * elevate legs as tolerated * follow-up with lymphedema clinic as outpatient (5) Essential hypertension: Code(s): I10 - Essential (primary) hypertension Status: Chronic Assessment and Plan: * reasonable control * continue current medications * follow trend of hemodynamics (6) Type 2 diabetes mellitus with hyperglycemia: Code(s): E11.65 - Type 2 diabetes mellitus with hyperglycemia Status: Chronic Assessment and Plan: * follow accu-cheks * glycemic control per hospitalists Will continue to follow. Subjective Date/time seen: 10/09/23 12:03 Interval history: Follow-up for acute kidney injury/acute renal failure on chronic kidney disease. Still with on/off shortness of breath although seems more noticeable with activity; also reports some intermittent epigastric pain in association with a decrease in appetite as well as nausea; right sided chest pain still present as well; renal function doing better with reasonable urine output. Exam Narrative: General: elderly but WD/WN female in NAD Heart: normal S1 and S2; no rub Lungs: clear anteriorly; decreased at bases Abdomen: soft, nontender, nondistended, positive bowel sounds Extremities: no cyanosis or clubbing; 1 - 2+ edema Skin: warm and intact Objective Data Vital Signs Vital Signs: Vital Signs
--- NOTE | 2023-10-09 12:03 | PM.PNNEP ---
Progress Note: A&P Assessment and Plan (1) KEZIA (acute kidney injury): Code(s): N17.9 - Acute kidney failure, unspecified Status: Acute Assessment and Plan: slight improvement by AM labs suspicion falls on contrast nephropathy in conjunction with diuretic therapy evaluation to date noted: urine electrolytes pre-renal (by FeNA) renal ultrasound unremarkable CPK only mildly elevated - not likely to have affected kidney function moderate proteinuria renal scan with uptake but delayed clearance suggestive of ATN will give a trial dose of IV bumex today follow repeat labs and UOP (2) Chronic kidney disease, stage 3b: Code(s): N18.32 - Chronic kidney disease, stage 3b Status: Chronic Assessment and Plan: baseline creatinine runs in the 2ish range (but has fluctuated to extremes...) this translates to a GFR in the low 30s range etiology is due to hypertension, diabetes, and age-related change with some contributions from FILI and chronic diuretic therapy (3) Acute on chronic heart failure with preserved ejection fraction: Code(s): I50.33 - Acute on chronic diastolic (congestive) heart failure Status: Acute Assessment and Plan: suspected based on presentation of SOB and evidence of fluid overload recent Echo noted: LVEF 60-65%, frade 1 diastolic dysfunction, mild biatrial enlargement, mild TR appears compensated at this time diuretics were on hold due to #1 -- will IV bumex today x 1 continue to monitor daily weights, urine output, and I/O's Cardiology recommendations noted - plan to add Jardiance and spironolactone once renal function improves (4) Edema: Code(s): R60.9 - Edema, unspecified Status: Acute Assessment and Plan: significant and chronic issue likely due to a combination of salt/fluid retention (from kidney disease), proteinuria, diastolic heart failure, FILI, and chronic lymphedema diuretics on hold due to #1 -- dose with IV bumex today continue treatment of her FILI elevate legs as tolerated follow-up with lymphedema clinic as outpatient (5) Essential hypertension: Code(s): I10 - Essential (primary) hypertension Status: Chronic Assessment and Plan: reasonable control continue current medications follow trend of hemodynamics (6) Type 2 diabetes mellitus with hyperglycemia: Code(s): E11.65 - Type 2 diabetes mellitus with hyperglycemia Status: Chronic Assessment and Plan: follow accu-cheks glycemic control per hospitalists Will continue to follow. Subjective Date/time seen: 10/09/23 12:03 Interval history: Follow-up for acute kidney injury/acute renal failure on chronic kidney disease. Still with on/off shortness of breath although seems more noticeable with activity; also reports some intermittent epigastric pain in association with a decrease in appetite as well as nausea; right sided chest pain still present as well; renal function doing better with reasonable urine output. Exam Narrative: General: elderly but WD/WN female in NAD Heart: normal S1 and S2; no rub Lungs: clear anteriorly; decreased at bases Abdomen: soft, nontender, nondistended, positive bowel sounds Extremities: no cyanosis or clubbing; 1 - 2+ edema Skin: warm and intact Objective Data Vital Signs Vital Signs: Vital Signs Temp Pulse Resp BP Pulse Ox O2 Del Method 10/09/23 12:00 98.0 F 60 16 142/49 H 100 10/09/23 09:20 75 Room Air 10/09/23 09:43 75 10/09/23 09:43 75 10/09/23 08:00 97.8 F 71 16 136/49 L 96 10/09/23 06:54 97.7 F 61 16 141/59 H 97 10/09/23 00:41 Autopap 10/08/23 21:06 97.9 F 60 20 156/59 H 100 10/08/23 20:30 Room Air 10/08/23 20:22 72 10/08/23 20:21 72 Intake/Output Intake/Output: Intake & Output 10/06/23 10/07/23 10/08/23 10/09/23 23:59 23:59 23:59 23:5
[2023-10-09] MEDS: BUMETANIDE INJ 1 MG/4 ML VIAL IV PUSH (16:12)
--- NOTE | 2023-10-09 17:01 | PM.IMPN ---
Progress Note: A&P Assessment and Plan (1) Acute kidney injury superimposed on chronic kidney disease: Code(s): N17.9 - Acute kidney failure, unspecified; N18.9 - Chronic kidney disease, unspecified Status: Acute Assessment and Plan: Baseline Cr 1.6-1.8 range. Cr 1.6 on admission but climbed to 3.2 rellated to contrast, diuretics, ARB and underlying CKD Renal US showing no acute findings. Tolerated intermittent doses of Bumex Nephrology following and appreciate their input. Nuclear med renal scan ordered showing symmetric renal fxn with borderline delayed clearance. Holding Lyrica. On a low potassium diet Cr better at 2.4 UOP 1100mL again yesterday Bumex once today Continue to monitor UOP, renal function and electrolytes (2) Acute on chronic heart failure with preserved ejection fraction: Code(s): I50.33 - Acute on chronic diastolic (congestive) heart failure Status: Acute Assessment and Plan: Patient presents with SOB and evidence of fluid overload. Echo 09/27 with LVEF 60-65%, Grade 1 diastolic dysfunction, mild biatrial enlargement, mild TR. Diuretics started but held 09/29 due to rising Cr. Bumex 10/01 and again 10/02 but not since Nephrology and Cardiology following and apprecaite their input CXR clear 10/05 Bumex once today. 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 DDimer was positive but CTA chest showing no PE and LE venous doppler negative for DVT. Rib xray negative for fracture and no evidence of shingles. Suspect chronic musculoskeletal pain that worsened due to tachypnea and cough. Lidocaine patch ordered. Symptomatic care. CT did show small pulmonary nodules with interval change in distribution, may be a component of edema or infection. Possible pneumonia so she was on Rocephin and azithromycin. She completed abx; off abx 10/03. Repeat CXR 10/05 is clear. PNA resolved Follow for symptomatic care (4) Type 2 diabetes mellitus with hyperglycemia: Code(s): E11.65 - Type 2 diabetes mellitus with hyperglycemia Status: Acute Assessment and Plan: A1c 10.2. The patient's blood glucose was reviewed on 10/08 She is on Lantus 42U HS and Novolog 15U AC Glucose remains well controlled. Continue AccuCheks covering with sliding scale. Hypoglycemia protocol available as needed. Continue to monitor. Hold Novolog if Glucose<120. (5) Essential hypertension: Code(s): I10 - Essential (primary) hypertension Status: Acute Assessment and Plan: Patient's blood pressure was reviewed on 10/08 Blood pressure remains well controlled. Will continue to follow (6) FILI (obstructive sleep apnea): Code(s): G47.33 - Obstructive sleep apnea (adult) (pediatric) Status: Acute Assessment and Plan: Refuses treatment at times Encourage compliance (7) COPD (chronic obstructive pulmonary disease): Code(s): J44.9 - Chronic obstructive pulmonary disease, unspecified Status: Acute Assessment and Plan: No wheezing appreciated Continue Mucinex; Albuterol available prn (8) Coronary artery disease: Code(s): I25.10 - Atherosclerotic heart disease of [place] coronary artery without angina pectoris Status: Acute Assessment and Plan: Stable. Scheduled for outpatient cardiac catheterization at [facility]. Does not need inpatient cardiac cath here per cardiology. Continue ASA, Plavix, Lopressor. Allergic to statin so Zetia added (9) Morbid obesity with BMI of 45.0-49.9, adult: Code(s): E66.01 - Morbid (severe) obesity due to excess calories; Z68.42
[2023-10-09 17:27] LABS: Glucose Point of Care 91 mg/dl (65-105)
[2023-10-09] MEDS: SIMETHICONE 80 MG TAB.CHEW PO ×2 (17:51→20:33)
[2023-10-09 20:31] LABS: Glucose Point of Care 184 mg/dl (65-105)
[2023-10-09] MEDS: INSULIN GLARGINE (*BKC) 100 UNITS/ML 42 UNITS SUB-Q (20:34)
[2023-10-09] MEDS: PANTOPRAZOLE 40 MG TABLET PO (20:34)
[2023-10-09] MEDS: ALBUTEROL SULFATE NEB 2.5 MG/3 ML INH INHALATION (20:49)
[2023-10-10] VITALS (9 sets, daily range): BP systolic 140–151; BP diastolic 43–61; PULSE 60–67; RESP 16–18; TEMP 36.4–36.6; O2SAT 96–99
[2023-10-10 06:08] LABS: Basophils Percent Auto 0.5 % (0.2-1.2); Eosinophils Absolute Auto 0.2 K/mm3 (0-0.3); Eosinophils Percent Auto 3.2 % (0-4.4); Hematocrit 30.2 % (37.0-47.0); Hemoglobin 9.3 g/dL (12.0-15.0); Immature Granulocyte Absolute 0.01 K/mm3 (0.00-0.031); Immature Granulocyte Percent A 0.2 % (0-0.5); Immature Platelet Fraction Pct 10.5 % (0.9-11.2); Lymphocytes Absolute Auto 1.66 K/mm3 (0.9-3.2); Lymphocytes Percent Auto 26.6 % (18.3-44.2); Mean Corpuscular HGB Conc 30.8 g/dl (32-36); Mean Corpuscular Volume 100.7 fl (80-100); Mean Platelet Volume 13.5 fl (7.4-10.4); Monocytes Percent Auto 16.1 % (2.6-8.5); Neutrophils Absolute Auto 3.3 K/mm3 (1.3-6.7); Neutrophils Percent Auto 53.4 % (45.5-73.1); Platelet Count Result 125 k/mm3 (150-375); Red Cell Distribution Width 16.6 % (11.5-14.5); White Blood Count 6.2 K/mm3 (4.5-10.0)
[2023-10-10 06:26] LABS: Albumin Level 3.3 g/dL (3.5-5.1); Anion Gap 0 mmol/L (8-16); Blood Urea Nitrogen 38 mg/dL (7-17); Calcium 8.7 mg/dL (8.4-10.2); Carbon Dioxide 30 mmol/L (22-30); Chloride 109 mmol/L (98-107); Estimated CRCL calculation 29 ml/min; Estimated Glomerular Filt Rate 24; Glucose 107 mg/dL (65-110); Phosphorus 3.7 mg/dL (2.5-4.5); Potassium 3.9 mmol/L (3.4-5.0); Sodium 139 mmol/L (137-145)
[2023-10-10 08:21] LABS: Glucose Point of Care 98 mg/dl (65-105)
[2023-10-10] MEDS: EZETIMIBE 10 MG TABLET PO (10:05)
[2023-10-10] MEDS: ASPIRIN 81 MG CHEWABLE TABLET PO (10:06)
[2023-10-10] MEDS: SIMETHICONE 80 MG TAB.CHEW PO ×4 (10:06→21:11)
[2023-10-10] MEDS: METOPROLOL TARTRATE 25 MG TABLET PO ×2 (10:06→21:11)
[2023-10-10] MEDS: FAMOTIDINE 20 MG TABLET 40 MG PO (10:07)
[2023-10-10] MEDS: guaiFENesin 12 HR 600 MG TABCR PO ×2 (10:07→21:11)
[2023-10-10] MEDS: CLOPIDOGREL BISULFATE 75 MG TABLET PO (10:07)
[2023-10-10] MEDS: METOPROLOL TARTRATE 12.5 MG TABLET PO ×2 (10:07→21:10)
[2023-10-10] MEDS: KETOROLAC 0.5% OP SOLN 5 ML BOTTLE 1 DROP RIGHT EYE ×3 (10:08→17:48)
[2023-10-10] MEDS: ENOXAPARIN 40 MG/0.4 ML SYRINGE SUB-Q (10:09)
[2023-10-10 12:15] LABS: Glucose Point of Care 140 mg/dl (65-105)
[2023-10-10] MEDS: INSULIN ASPART (*BKC) 100 UNITS/ML 15 UNITS SUB-Q (12:37)
--- NOTE | 2023-10-10 13:57 | PM.PNNEP ---
Progress Note: A&P Assessment and Plan (1) KEZIA (acute kidney injury): Code(s): N17.9 - Acute kidney failure, unspecified Status: Acute Assessment and Plan: slight improvement by AM labs suspicion falls on contrast nephropathy in conjunction with diuretic therapy evaluation to date noted: urine electrolytes pre-renal (by FeNA) renal ultrasound unremarkable CPK only mildly elevated - not likely to have affected kidney function moderate proteinuria renal scan with uptake but delayed clearance suggestive of ATN tolerated trial dose of IV bumex yesterday -- start oral bumex follow repeat labs and UOP (2) Chronic kidney disease, stage 3b: Code(s): N18.32 - Chronic kidney disease, stage 3b Status: Chronic Assessment and Plan: baseline creatinine runs in the 2ish range (but has fluctuated to extremes...) this translates to a GFR in the low 30s range etiology is due to hypertension, diabetes, and age-related change with some contributions from FILI and chronic diuretic therapy (3) Acute on chronic heart failure with preserved ejection fraction: Code(s): I50.33 - Acute on chronic diastolic (congestive) heart failure Status: Acute Assessment and Plan: suspected based on presentation of SOB and evidence of fluid overload recent Echo noted: LVEF 60-65%, frade 1 diastolic dysfunction, mild biatrial enlargement, mild TR appears compensated at this time diuretics were on hold due to #1 -- dosed with IV bumex x 1 yesterday; start oral bumex continue to monitor daily weights, urine output, and I/O's Cardiology recommendations noted - plan to add Jardiance and spironolactone once renal function improves (4) Edema: Code(s): R60.9 - Edema, unspecified Status: Acute Assessment and Plan: significant and chronic issue likely due to a combination of salt/fluid retention (from kidney disease), proteinuria, diastolic heart failure, FILI, and chronic lymphedema diuretics on hold due to #1 -- dose dwith IV bumex yesterday; will start oral bumex continue treatment of her FILI elevate legs as tolerated follow-up with lymphedema clinic as outpatient (5) Essential hypertension: Code(s): I10 - Essential (primary) hypertension Status: Chronic Assessment and Plan: reasonable control continue current medications follow trend of hemodynamics (6) Type 2 diabetes mellitus with hyperglycemia: Code(s): E11.65 - Type 2 diabetes mellitus with hyperglycemia Status: Chronic Assessment and Plan: follow accu-cheks glycemic control per hospitalists Will continue to follow. Subjective Date/time seen: 10/10/23 13:57 Interval history: Follow-up for acute kidney injury/acute renal failure on chronic kidney disease. Tolerated IV bumex yesterday with relative stability in renal function/creatinine; still voices that she has shortness of breath with exertion and activity; no other acute complaints voiced at the time of my visit; no events overnight or earlier today. Exam Narrative: General: elderly but WD/WN female in NAD Heart: normal S1 and S2; no rub Lungs: clear anteriorly; decreased at bases Abdomen: soft, nontender, nondistended, positive bowel sounds Extremities: no cyanosis or clubbing; 1 - 2+ edema Skin: no rash Objective Data Vital Signs Vital Signs: Vital Signs Temp Pulse Resp BP Pulse Ox O2 Del Method 10/10/23 10:00 Room Air 10/10/23 10:07 65 10/10/23 10:06 65 10/10/23 10:04 67 151/48 H 97 10/10/23 01:11 Autopap 10/10/23 00:00 97.8 F 67 18 140/43 L 96 10/09/23 22:00 Autopap 10/09/23 20:40 97 Room Air 10/09/23 21:01 70 19 10/09/23 20:49 69 18 10/09/23 20:34 74 10/09/23 20:34 74 Intake/Output Intake/Output: Intake & Output 10/07/23 10/08/23 10/09/23 10/10/23 23:59 23:59 23:
--- NOTE | 2023-10-10 13:57 | P.PNNP_ITS ---
Progress Note: A&P Assessment and Plan (1) KEZIA (acute kidney injury): Code(s): N17.9 - Acute kidney failure, unspecified Status: Acute Assessment and Plan: * slight improvement by AM labs * suspicion falls on contrast nephropathy in conjunction with diuretic therapy * evaluation to date noted: * urine electrolytes pre-renal (by FeNA) * renal ultrasound unremarkable * CPK only mildly elevated - not likely to have affected kidney function * moderate proteinuria * renal scan with uptake but delayed clearance suggestive of ATN * tolerated trial dose of IV bumex yesterday -- start oral bumex * follow repeat labs and UOP (2) Chronic kidney disease, stage 3b: Code(s): N18.32 - Chronic kidney disease, stage 3b Status: Chronic Assessment and Plan: * baseline creatinine runs in the 2ish range (but has fluctuated to extremes...) * this translates to a GFR in the low 30s range * etiology is due to hypertension, diabetes, and age-related change with some contributions from FILI and chronic diuretic therapy (3) Acute on chronic heart failure with preserved ejection fraction: Code(s): I50.33 - Acute on chronic diastolic (congestive) heart failure Status: Acute Assessment and Plan: * suspected based on presentation of SOB and evidence of fluid overload * recent Echo noted: LVEF 60-65%, frade 1 diastolic dysfunction, mild biatrial enlargement, mild TR * appears compensated at this time * diuretics were on hold due to #1 -- dosed with IV bumex x 1 yesterday; start oral bumex * continue to monitor daily weights, urine output, and I/O's * Cardiology recommendations noted - plan to add Jardiance and spironolactone once renal function improves (4) Edema: Code(s): R60.9 - Edema, unspecified Status: Acute Assessment and Plan: * significant and chronic issue * likely due to a combination of salt/fluid retention (from kidney disease), proteinuria, diastolic heart failure, FILI, and chronic lymphedema * diuretics on hold due to #1 -- dose dwith IV bumex yesterday; will start oral bumex * continue treatment of her FILI * elevate legs as tolerated * follow-up with lymphedema clinic as outpatient (5) Essential hypertension: Code(s): I10 - Essential (primary) hypertension Status: Chronic Assessment and Plan: * reasonable control * continue current medications * follow trend of hemodynamics (6) Type 2 diabetes mellitus with hyperglycemia: Code(s): E11.65 - Type 2 diabetes mellitus with hyperglycemia Status: Chronic Assessment and Plan: * follow accu-cheks * glycemic control per hospitalists Will continue to follow. Subjective Date/time seen: 10/10/23 13:57 Interval history: Follow-up for acute kidney injury/acute renal failure on chronic kidney disease. Tolerated IV bumex yesterday with relative stability in renal function/cre atinine; still voices that she has shortness of breath with exertion and activity; no other acute complaints voiced at the time of my visit; no events overnight or earlier today. Exam Narrative: General: elderly but WD/WN female in NAD Heart: normal S1 and S2; no rub Lungs: clear anteriorly; decreased at bases Abdomen: soft, nontender, nondistended, positive bowel sounds Extremities: no cyanosis or clubbing; 1 - 2+ edema Skin: no rash Objective Data Vital Signs Vital Signs:
--- NOTE | 2023-10-10 15:10 | PM.IMPN ---
Progress Note: A&P Assessment and Plan (1) Acute kidney injury superimposed on chronic kidney disease: Code(s): N17.9 - Acute kidney failure, unspecified; N18.9 - Chronic kidney disease, unspecified Status: Acute Assessment and Plan: Baseline Cr 1.6-1.8 range. Cr 1.6 on admission but climbed to 3.2 rellated to contrast, diuretics, ARB and underlying CKD Renal US showing no acute findings. Tolerated intermittent doses of Bumex Nephrology following and appreciate their input. Nuclear med renal scan ordered showing symmetric renal fxn with borderline delayed clearance. Holding Lyrica. On a low potassium diet creat over 2 (2) Acute on chronic heart failure with preserved ejection fraction: Code(s): I50.33 - Acute on chronic diastolic (congestive) heart failure Status: Acute Assessment and Plan: Patient presents with SOB and evidence of fluid overload. Echo 09/27 with LVEF 60-65%, Grade 1 diastolic dysfunction, mild biatrial enlargement, mild TR. Diuretics started but held 09/29 due to rising Cr. 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 DDimer was positive but CTA chest showing no PE and LE venous doppler negative for DVT. Rib xray negative for fracture and no evidence of shingles. Suspect chronic musculoskeletal pain that worsened due to tachypnea and cough. Lidocaine patch ordered. Symptomatic care. CT did show small pulmonary nodules with interval change in distribution, may be a component of edema or infection. Possible pneumonia so she was on Rocephin and azithromycin. She completed abx; off abx 10/03. Repeat CXR 10/05 is clear. PNA resolved (4) Type 2 diabetes mellitus with hyperglycemia: Code(s): E11.65 - Type 2 diabetes mellitus with hyperglycemia Status: Acute Assessment and Plan: A1c 10.2. Glucose remains well controlled. Continue AccuCheks covering with sliding scale. Hypoglycemia protocol available as needed. Continue to monitor. Hold Novolog if Glucose<120. (5) Essential hypertension: Code(s): I10 - Essential (primary) hypertension Status: Acute Assessment and Plan: Blood pressure remains well controlled. Will continue to follow (6) FILI (obstructive sleep apnea): Code(s): G47.33 - Obstructive sleep apnea (adult) (pediatric) Status: Acute Assessment and Plan: Refuses treatment at times Encourage compliance (7) COPD (chronic obstructive pulmonary disease): Code(s): J44.9 - Chronic obstructive pulmonary disease, unspecified Status: Acute Assessment and Plan: No wheezing appreciated Continue Mucinex; Albuterol available prn (8) Coronary artery disease: Code(s): I25.10 - Atherosclerotic heart disease of [place] coronary artery without angina pectoris Status: Acute Assessment and Plan: Stable. Scheduled for outpatient cardiac catheterization at [facility]. Does not need inpatient cardiac cath here per cardiology. Continue ASA, Plavix, Lopressor. Allergic to statin so Zetia added (9) Morbid obesity with BMI of 45.0-49.9, adult: Code(s): E66.01 - Morbid (severe) obesity due to excess calories; Z68.42 - Body mass index [BMI] 45.0-49.9, adult Status: Acute Assessment and Plan: BMI 57. This is contributing to her other medical problems Health lifestyle encouraged Plan Code status - full DVT prophylaxis - Lovenox Subjective Date/time seen: 10/10/23 15:10 Interval history: 73yo female with CAD s/p CABG, FILI, DM, MO and CKD here for worsening swelling of bilateral lower extrem
[2023-10-10 17:24] LABS: Glucose Point of Care 115 mg/dl (65-105)
[2023-10-10] MEDS: BUMETANIDE 1 MG TABLET PO (17:48)
[2023-10-10] MEDS: ALBUTEROL SULFATE NEB 2.5 MG/3 ML INH INHALATION (18:13)
[2023-10-10] MEDS: PANTOPRAZOLE 40 MG TABLET PO (21:11)
[2023-10-10] MEDS: INSULIN GLARGINE (*BKC) 100 UNITS/ML 42 UNITS SUB-Q (21:13)
[2023-10-10 23:27] LABS: Glucose Point of Care 165 mg/dl (65-105)
[2023-10-11] VITALS (7 sets, daily range): BP systolic 144–157; BP diastolic 57–92; PULSE 61–67; RESP 17–18; TEMP 36.3–36.9; O2SAT 97–99
[2023-10-11] MEDS: WATER FOR IRRIGATION, STERILE 1,000 ML BOTTLE 1000 ML (04:44)
[2023-10-11 07:28] LABS: Anion Gap 3 mmol/L (8-16); Blood Urea Nitrogen 33 mg/dL (7-17); Calcium 8.7 mg/dL (8.4-10.2); Carbon Dioxide 30 mmol/L (22-30); Chloride 109 mmol/L (98-107); Estimated CRCL calculation 29 ml/min; Estimated Glomerular Filt Rate 24; Glucose 94 mg/dL (65-110); Potassium 3.9 mmol/L (3.4-5.0); Sodium 142 mmol/L (137-145)
[2023-10-11 08:07] LABS: Glucose Point of Care 86 mg/dl (65-105)
[2023-10-11] MEDS: METOPROLOL TARTRATE 25 MG TABLET PO ×2 (09:40→20:26)
[2023-10-11] MEDS: METOPROLOL TARTRATE 12.5 MG TABLET PO ×2 (09:41→20:26)
[2023-10-11] MEDS: FAMOTIDINE 20 MG TABLET 40 MG PO (09:41)
[2023-10-11] MEDS: EZETIMIBE 10 MG TABLET PO (09:41)
[2023-10-11] MEDS: CLOPIDOGREL BISULFATE 75 MG TABLET PO (09:41)
[2023-10-11] MEDS: SIMETHICONE 80 MG TAB.CHEW PO ×4 (09:41→20:27)
[2023-10-11] MEDS: LIDOCAINE 5% PATCH 1 PATCH TRANSDERM (09:41)
[2023-10-11] MEDS: polyethylene glycoL 3350 17 GM POWD.PACK PO ×2 (09:42→17:50)
[2023-10-11] MEDS: ASPIRIN 81 MG CHEWABLE TABLET PO (09:42)
[2023-10-11] MEDS: ENOXAPARIN 40 MG/0.4 ML SYRINGE SUB-Q (09:42)
[2023-10-11] MEDS: guaiFENesin 12 HR 600 MG TABCR PO ×2 (09:42→20:26)
[2023-10-11] MEDS: BUMETANIDE 1 MG TABLET PO ×2 (09:42→17:50)
[2023-10-11] MEDS: KETOROLAC 0.5% OP SOLN 5 ML BOTTLE 1 DROP RIGHT EYE ×3 (09:43→17:50)
--- NOTE | 2023-10-11 09:55 | PM.IMPN ---
Progress Note: A&P Assessment and Plan (1) Acute kidney injury superimposed on chronic kidney disease: Code(s): N17.9 - Acute kidney failure, unspecified; N18.9 - Chronic kidney disease, unspecified Status: Acute Assessment and Plan: Baseline Cr 1.6-1.8 range. Cr 1.6 on admission but climbed to 3.2 rellated to contrast, diuretics, ARB and underlying CKD Renal US showing no acute findings. Tolerated intermittent doses of Bumex Nephrology following and appreciate their input. Nuclear med renal scan ordered showing symmetric renal fxn with borderline delayed clearance. Holding Lyrica. On a low potassium diet creat over 2 (2) Acute on chronic heart failure with preserved ejection fraction: Code(s): I50.33 - Acute on chronic diastolic (congestive) heart failure Status: Acute Assessment and Plan: Patient presents with SOB and evidence of fluid overload. Echo 09/27 with LVEF 60-65%, Grade 1 diastolic dysfunction, mild biatrial enlargement, mild TR. Diuretics started but held 09/29 due to rising Cr. 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 DDimer was positive but CTA chest showing no PE and LE venous doppler negative for DVT. Rib xray negative for fracture and no evidence of shingles. Suspect chronic musculoskeletal pain that worsened due to tachypnea and cough. Lidocaine patch ordered. Symptomatic care. CT did show small pulmonary nodules with interval change in distribution, may be a component of edema or infection. Possible pneumonia so she was on Rocephin and azithromycin. She completed abx; off abx 10/03. Repeat CXR 10/05 is clear. PNA resolved (4) Type 2 diabetes mellitus with hyperglycemia: Code(s): E11.65 - Type 2 diabetes mellitus with hyperglycemia Status: Acute Assessment and Plan: A1c 10.2. Glucose remains well controlled. Continue AccuCheks covering with sliding scale. Hypoglycemia protocol available as needed. Continue to monitor. Hold Novolog if Glucose<120. (5) Essential hypertension: Code(s): I10 - Essential (primary) hypertension Status: Acute Assessment and Plan: Blood pressure remains well controlled. Will continue to follow (6) FILI (obstructive sleep apnea): Code(s): G47.33 - Obstructive sleep apnea (adult) (pediatric) Status: Acute Assessment and Plan: Refuses treatment at times Encourage compliance (7) COPD (chronic obstructive pulmonary disease): Code(s): J44.9 - Chronic obstructive pulmonary disease, unspecified Status: Acute Assessment and Plan: Wheezy lungs today Continue Mucinex; Albuterol available prn can add low dose steroids (8) Coronary artery disease: Code(s): I25.10 - Atherosclerotic heart disease of [place] coronary artery without angina pectoris Status: Acute Assessment and Plan: Stable. Scheduled for outpatient cardiac catheterization at [facility]. Does not need inpatient cardiac cath here per cardiology. Continue ASA, Plavix, Lopressor. Allergic to statin so Zetia added (9) Morbid obesity with BMI of 45.0-49.9, adult: Code(s): E66.01 - Morbid (severe) obesity due to excess calories; Z68.42 - Body mass index [BMI] 45.0-49.9, adult Status: Acute Assessment and Plan: BMI 57. This is contributing to her other medical problems Health lifestyle encouraged Plan Code status - full DVT prophylaxis - Lovenox Subjective Date/time seen: 10/11/23 09:55 Interval history: 73yo female with CAD s/p CABG, FILI, DM, [place] and CKD here for worsening swelling of
[2023-10-11] MEDS: ALBUTEROL SULFATE (*SP) AEROSOL 1 PUFF 2 PUFF INHALATION (10:10)
[2023-10-11 12:08] LABS: Glucose Point of Care 139 mg/dl (65-105)
[2023-10-11] MEDS: INSULIN ASPART (*BKC) 100 UNITS/ML 15 UNITS SUB-Q (12:28)
--- NOTE | 2023-10-11 12:43 | P.PNNP_ITS ---
Progress Note: A&P Assessment and Plan (1) KEZIA (acute kidney injury): Code(s): N17.9 - Acute kidney failure, unspecified Status: Acute Assessment and Plan: * slight improvement by trend of labs * suspicion falls on contrast nephropathy in conjunction with diuretic therapy * evaluation to date noted: * urine electrolytes pre-renal (by FeNA) * renal ultrasound unremarkable * CPK only mildly elevated - not likely to have affected kidney function * moderate proteinuria * renal scan with uptake but delayed clearance suggestive of ATN * on oral bumex * follow repeat labs and UOP (2) Chronic kidney disease, stage 3b: Code(s): N18.32 - Chronic kidney disease, stage 3b Status: Chronic Assessment and Plan: * baseline creatinine runs in the 2ish range (but has fluctuated to extremes...) * this translates to a GFR in the low 30s range * etiology is due to hypertension, diabetes, and age-related change with some contributions from FILI and chronic diuretic therapy (3) Acute on chronic heart failure with preserved ejection fraction: Code(s): I50.33 - Acute on chronic diastolic (congestive) heart failure Status: Acute Assessment and Plan: * suspected based on presentation of SOB and evidence of fluid overload * recent Echo noted: LVEF 60-65%, frade 1 diastolic dysfunction, mild biatrial enlargement, mild TR * appears compensated at this time * diuretics were on hold due to #1 -- now back on oral bumex * continue to monitor daily weights, urine output, and I/O's * Cardiology recommendations noted - plan to add Jardiance and spironolactone once renal function improves (4) Edema: Code(s): R60.9 - Edema, unspecified Status: Acute Assessment and Plan: * significant and chronic issue * likely due to a combination of salt/fluid retention (from kidney disease), proteinuria, diastolic heart failure, FILI, and chronic lymphedema * diuretics were on hold due to #1 -- now back on oral bumex * continue treatment of her FILI * elevate legs as tolerated * follow-up with lymphedema clinic as outpatient (5) Essential hypertension: Code(s): I10 - Essential (primary) hypertension Status: Chronic Assessment and Plan: * reasonable control * continue current medications * follow trend of hemodynamics (6) Type 2 diabetes mellitus with hyperglycemia: Code(s): E11.65 - Type 2 diabetes mellitus with hyperglycemia Status: Chronic Assessment and Plan: * follow accu-cheks * glycemic control per hospitalists Will continue to follow. Subjective Date/time seen: 10/11/23 12:43 Interval history: Follow-up for acute kidney injury/acute renal failure on chronic kidney disease. Started on oral bumex yesterday and continues to make reasonable urine output with relative stability in renal function/creatinine; however, she continues to endorse shortness of breath with activity/exertion along with some wheezing as well; LE edema seems stable if not bit better; recent CXR with Questionable minimal bibasilar pulmonary edema as well. Exam Narrative: General: elderly but WD/WN female in NAD Heart: normal S1 and S2; no rub Lungs: clear anteriorly; decreased at bases Abdomen: soft, nontender, nondistended, positive bowel sounds Extremities: no cyanosis or clubbing; 1 - 2+ edema Skin: no nodules Objective Data Vital Signs Vital Signs:
--- NOTE | 2023-10-11 12:43 | PM.PNNEP ---
Progress Note: A&P Assessment and Plan (1) KEZIA (acute kidney injury): Code(s): N17.9 - Acute kidney failure, unspecified Status: Acute Assessment and Plan: slight improvement by trend of labs suspicion falls on contrast nephropathy in conjunction with diuretic therapy evaluation to date noted: urine electrolytes pre-renal (by FeNA) renal ultrasound unremarkable CPK only mildly elevated - not likely to have affected kidney function moderate proteinuria renal scan with uptake but delayed clearance suggestive of ATN on oral bumex follow repeat labs and UOP (2) Chronic kidney disease, stage 3b: Code(s): N18.32 - Chronic kidney disease, stage 3b Status: Chronic Assessment and Plan: baseline creatinine runs in the 2ish range (but has fluctuated to extremes...) this translates to a GFR in the low 30s range etiology is due to hypertension, diabetes, and age-related change with some contributions from FILI and chronic diuretic therapy (3) Acute on chronic heart failure with preserved ejection fraction: Code(s): I50.33 - Acute on chronic diastolic (congestive) heart failure Status: Acute Assessment and Plan: suspected based on presentation of SOB and evidence of fluid overload recent Echo noted: LVEF 60-65%, frade 1 diastolic dysfunction, mild biatrial enlargement, mild TR appears compensated at this time diuretics were on hold due to #1 -- now back on oral bumex continue to monitor daily weights, urine output, and I/O's Cardiology recommendations noted - plan to add Jardiance and spironolactone once renal function improves (4) Edema: Code(s): R60.9 - Edema, unspecified Status: Acute Assessment and Plan: significant and chronic issue likely due to a combination of salt/fluid retention (from kidney disease), proteinuria, diastolic heart failure, FILI, and chronic lymphedema diuretics were on hold due to #1 -- now back on oral bumex continue treatment of her FILI elevate legs as tolerated follow-up with lymphedema clinic as outpatient (5) Essential hypertension: Code(s): I10 - Essential (primary) hypertension Status: Chronic Assessment and Plan: reasonable control continue current medications follow trend of hemodynamics (6) Type 2 diabetes mellitus with hyperglycemia: Code(s): E11.65 - Type 2 diabetes mellitus with hyperglycemia Status: Chronic Assessment and Plan: follow accu-cheks glycemic control per hospitalists Will continue to follow. Subjective Date/time seen: 10/11/23 12:43 Interval history: Follow-up for acute kidney injury/acute renal failure on chronic kidney disease. Started on oral bumex yesterday and continues to make reasonable urine output with relative stability in renal function/creatinine; however, she continues to endorse shortness of breath with activity/exertion along with some wheezing as well; LE edema seems stable if not bit better; recent CXR with Questionable minimal bibasilar pulmonary edema as well. Exam Narrative: General: elderly but WD/WN female in NAD Heart: normal S1 and S2; no rub Lungs: clear anteriorly; decreased at bases Abdomen: soft, nontender, nondistended, positive bowel sounds Extremities: no cyanosis or clubbing; 1 - 2+ edema Skin: no nodules Objective Data Vital Signs Vital Signs: Vital Signs Temp Pulse Resp BP Pulse Ox O2 Del Method FiO2 10/11/23 09:45 Room Air 10/11/23 10:10 61 18 10/11/23 09:41 65 10/11/23 09:40 65 10/11/23 09:09 98.4 F 65 17 144/57 H 97 10/11/23 09:09 97 Room Air 10/11/23 03:31 Autopap 10/10/23 22:54 Autopap 10/10/23 23:28 97.8 F 63 18 143/61 H 99 10/10/23 20:00 62 18 97 Room Air 21 10/10/23 18:27 62 18 10/10/23 16:00 97.6 F 66 16 148/52 H 97 10/10/23 18:13 60 18
[2023-10-11 17:00] LABS: Glucose Point of Care 91 mg/dl (65-105)
[2023-10-11] MEDS: PANTOPRAZOLE 40 MG TABLET PO (20:26)
[2023-10-11] MEDS: INSULIN GLARGINE (*BKC) 100 UNITS/ML 42 UNITS SUB-Q (20:42)
[2023-10-11] MEDS: ACETAMINOPHEN 325 MG TABLET 650 MG PO (20:44)
[2023-10-11 21:33] LABS: Glucose Point of Care 143 mg/dl (65-105)
[2023-10-12] VITALS (11 sets, daily range): BP systolic 115–151; BP diastolic 34–86; PULSE 58–68; RESP 18–20; TEMP 36.6–36.9; O2SAT 94–100
[2023-10-12 06:16] LABS: Basophils Percent Auto 0.6 % (0.2-1.2); Eosinophils Absolute Auto 0.2 K/mm3 (0-0.3); Eosinophils Percent Auto 3.5 % (0-4.4); Hematocrit 28.9 % (37.0-47.0); Hemoglobin 9.1 g/dL (12.0-15.0); Immature Granulocyte Absolute 0.01 K/mm3 (0.00-0.031); Immature Granulocyte Percent A 0.2 % (0-0.5); Immature Platelet Fraction Pct 10.9 % (0.9-11.2); Lymphocytes Absolute Auto 1.13 K/mm3 (0.9-3.2); Lymphocytes Percent Auto 23.1 % (18.3-44.2); Mean Corpuscular HGB Conc 31.5 g/dl (32-36); Mean Corpuscular Hemoglobin 30.4 pg (26-34); Mean Corpuscular Volume 96.7 fl (80-100); Mean Platelet Volume 13.5 fl (7.4-10.4); Monocytes Percent Auto 19.8 % (2.6-8.5); Neutrophils Absolute Auto 2.6 K/mm3 (1.3-6.7); Neutrophils Percent Auto 52.8 % (45.5-73.1); Platelet Count Result 115 k/mm3 (150-375); Red Blood Count 2.99 M/mm3 (4.2-5.4); White Blood Count 4.9 K/mm3 (4.5-10.0)
[2023-10-12 07:43] LABS: Alanine Aminotransferase 16 U/L (6-35); Albumin Level 3.1 g/dL (3.5-5.1); Alkaline Phosphatase 63 U/L (38-126); Anion Gap -1 mmol/L (8-16); Aspartate Amino Transferase 28 U/L (14-36); Bilirubin,Total 0.4 mg/dL (0.2-1.3); Blood Urea Nitrogen 30 mg/dL (7-17); Calcium 8.7 mg/dL (8.4-10.2); Carbon Dioxide 30 mmol/L (22-30); Chloride 109 mmol/L (98-107); Estimated CRCL calculation 29 ml/min; Estimated Glomerular Filt Rate 24; Glucose 71 mg/dL (65-110); Potassium 3.8 mmol/L (3.4-5.0); Sodium 138 mmol/L (137-145)
[2023-10-12 08:08] LABS: Glucose Point of Care 72 mg/dl (65-105)
[2023-10-12] MEDS: guaiFENesin 12 HR 600 MG TABCR PO ×2 (09:09→20:48)
[2023-10-12] MEDS: ASPIRIN 81 MG CHEWABLE TABLET PO (09:09)
[2023-10-12] MEDS: EZETIMIBE 10 MG TABLET PO (09:09)
[2023-10-12] MEDS: FAMOTIDINE 20 MG TABLET 40 MG PO (09:10)
[2023-10-12] MEDS: CLOPIDOGREL BISULFATE 75 MG TABLET PO (09:10)
[2023-10-12] MEDS: predniSONE 10 MG TABLET PO (09:10)
[2023-10-12] MEDS: SIMETHICONE 80 MG TAB.CHEW PO ×4 (09:10→20:48)
[2023-10-12] MEDS: BUMETANIDE 1 MG TABLET PO ×2 (09:10→18:26)
[2023-10-12] MEDS: ENOXAPARIN 40 MG/0.4 ML SYRINGE SUB-Q (09:11)
[2023-10-12] MEDS: METOPROLOL TARTRATE 12.5 MG TABLET PO ×2 (09:12→20:47)
[2023-10-12] MEDS: KETOROLAC 0.5% OP SOLN 5 ML BOTTLE 1 DROP RIGHT EYE ×3 (09:13→18:27)
[2023-10-12] MEDS: METOPROLOL TARTRATE 25 MG TABLET PO ×2 (09:13→20:48)
--- NOTE | 2023-10-12 10:41 | PM.IMPN ---
Progress Note: A&P Assessment and Plan (1) Lung infiltrate: Code(s): R91.8 - Other nonspecific abnormal finding of lung field Status: Acute (2) Type 2 diabetes mellitus with hyperglycemia: Code(s): E11.65 - Type 2 diabetes mellitus with hyperglycemia Status: Acute (3) Essential hypertension: Code(s): I10 - Essential (primary) hypertension Status: Acute (4) Chronic kidney disease, stage 3: Code(s): N18.3 - Chronic kidney disease, stage 3 (moderate) Status: Chronic (5) FILI (obstructive sleep apnea): Code(s): G47.33 - Obstructive sleep apnea (adult) (pediatric) Status: Acute (6) GERD (gastroesophageal reflux disease): Code(s): K21.9 - Gastro-esophageal reflux disease without esophagitis Status: Acute (7) COPD (chronic obstructive pulmonary disease): Code(s): J44.9 - Chronic obstructive pulmonary disease, unspecified Status: Acute (8) Insulin dependent type 2 diabetes mellitus: Code(s): E11.9 - Type 2 diabetes mellitus without complications; Z79.4 - buttermaker (current) use of insulin Status: Acute (9) Coronary artery disease: Code(s): I25.10 - Atherosclerotic heart disease of [place] coronary artery without angina pectoris Status: Acute (10) Morbid obesity with BMI of 45.0-49.9, adult: Code(s): E66.01 - Morbid (severe) obesity due to excess calories; Z68.42 - Body mass index [BMI] 45.0-49.9, adult Status: Acute Plan 73-year-old female with history of coronary artery disease [place] in December 2 needed 12 status post CABG hypothyroidism hyperlipidemia hypertension insulin-dependent type 2 diabetes-for edema CKD stage 3 congestive heart failure anemia requiring transfusion presented to the ED for chest pain and shortness of breath intermittently for the past 3 weeks. She also has diagnosis of FILI and a trial of CPAP. Stress test on 09/19/2023 reports it is revealed of blockage in 1 of her coronary arteries. She reported right-sided chest wall pain for the past 3 weeks intermittently. Sometimes the pain radiates down her bilateral arms. Associated shortness of breath and dry cough. She also reported lower extremity edema which he attributes to lymphedema. Worsening orthopnea and 20 lb weight gain in the past 3 weeks. She has been taking her Bumex as prescribed. She received DuoNeb in the ED with some improvement. Prior echocardiogram 02/16/2020 showed moderately increased LV wall thickness EF of 60-65% grade 2 diastolic dysfunction right atrial chamber mildly enlarged severe pulmonary hypertension with PA systolic pressure measuring 68 mm Hg. On ED evaluation she was hypertension is oxygenation was adequate. Laboratory evaluation showed normal WBC creatinine 1.6 BNP 1850 COVID RSV flu negative EKG with ST-T changes with no acute findings. Initial troponin within normal limits. Serial troponin remained negative. D-dimer elevated at 2.[address] was performed which showed no PE but showed mild pulmonary edema with small pleural effusions and small pulmonary nodules with interval changes in distribution which may be a component of pulmonary edema and or or may be an infection. She had mild wheezing on presented to the ED which improved with DuoNeb. She has been started on IV diuresis with Lasix IV b.i.d.. Suspected CHF exacerbation. This is been switched to Bumex IV renal function stable with diuresis. Negative balance. His creatinine has bumped up Bumex dose has been reduced by [employer] [facility]. Creatinine continues to worsen. Bumex on hold. Possible pneumonia she has also been restarted on Rocephin and azithromycin. This has been switched to oral cefdinir and azithromycin. She has been off antibiotics after completing antibiotic course. Echo with EF 60-65% moderate concentric increased left ventricular wall thickness grade 1 diastolic dysfunction. Needs blood pressure control add amlodipine. However reports dry mouth.
--- NOTE | 2023-10-12 10:52 | PM.PNNEP ---
Progress Note: A&P Assessment and Plan (1) KEZIA (acute kidney injury): Code(s): N17.9 - Acute kidney failure, unspecified Status: Acute Assessment and Plan: slight improvement by trend of labs; stable for the last few days suspicion falls on contrast nephropathy in conjunction with diuretic therapy evaluation to date noted: urine electrolytes pre-renal (by FeNA) renal ultrasound unremarkable CPK only mildly elevated - not likely to have affected kidney function moderate proteinuria renal scan with uptake but delayed clearance suggestive of ATN on oral bumex currently follow repeat labs and UOP (2) Chronic kidney disease, stage 3b: Code(s): N18.32 - Chronic kidney disease, stage 3b Status: Chronic Assessment and Plan: baseline creatinine runs in the 2ish range (but has fluctuated to extremes...) this translates to a GFR in the low 30s range etiology is due to hypertension, diabetes, and age-related change with some contributions from FILI and chronic diuretic therapy (3) Acute on chronic heart failure with preserved ejection fraction: Code(s): I50.33 - Acute on chronic diastolic (congestive) heart failure Status: Acute Assessment and Plan: suspected based on presentation of SOB and evidence of fluid overload recent Echo noted: LVEF 60-65%, frade 1 diastolic dysfunction, mild biatrial enlargement, mild TR appears compensated at this time - unclear if ongoing dyspnea is related to CHF at this time... diuretics were on hold due to #1 -- now back on oral bumex continue to monitor daily weights, urine output, and I/O's Cardiology recommendations noted - plan to add Jardiance and spironolactone once renal function improves (4) Edema: Code(s): R60.9 - Edema, unspecified Status: Acute Assessment and Plan: significant and chronic issue likely due to a combination of salt/fluid retention (from kidney disease), proteinuria, diastolic heart failure, FILI, and chronic lymphedema diuretics were on hold due to #1 -- now back on oral bumex continue treatment of her FILI elevate legs as tolerated follow-up with lymphedema clinic as outpatient (5) Essential hypertension: Code(s): I10 - Essential (primary) hypertension Status: Chronic Assessment and Plan: reasonable control continue current medications follow trend of hemodynamics (6) Type 2 diabetes mellitus with hyperglycemia: Code(s): E11.65 - Type 2 diabetes mellitus with hyperglycemia Status: Chronic Assessment and Plan: follow accu-cheks glycemic control per hospitalists Will continue to follow. Subjective Date/time seen: 10/12/23 10:52 Interval history: Follow-up for acute kidney injury/acute renal failure on chronic kidney disease. Continue to tolerated oral bumex therapy with reasonable urine output with relative stability in renal function/creatinine by trend of labs; in spite of this, continues to voice concerns of shortness of breath with any physical activity (i.e. walking to the bathroom in her hospital room); no events overnight or earlier today. Exam Narrative: General: elderly but WD/WN female in NAD Heart: normal S1 and S2; no rub Lungs: clear anteriorly; decreased at bases Abdomen: soft, nontender, nondistended, positive bowel sounds Extremities: no cyanosis or clubbing; 1 - 2+ edema Skin: warm and dry Objective Data Vital Signs Vital Signs: Vital Signs Temp Pulse Resp BP Pulse Ox O2 Del Method FiO2 10/12/23 08:00 Room Air 10/12/23 09:13 68 10/12/23 09:12 68 10/12/23 05:23 98.2 F 58 L 18 125/34 L 97 10/12/23 00:00 95 Room Air 10/12/23 02:45 60 94 Autopap 10/11/23 20:00 67 18 99 Room Air 21 10/11/23 20:13 97.3 F L 67 18 157/92 H 99 10/11/23 14:15 98.2 F 62 18 157/59 H 98 Intake/Output Intake/Output: In
--- NOTE | 2023-10-12 10:52 | P.PNNP_ITS ---
Progress Note: A&P Assessment and Plan (1) KEZIA (acute kidney injury): Code(s): N17.9 - Acute kidney failure, unspecified Status: Acute Assessment and Plan: * slight improvement by trend of labs; stable for the last few days * suspicion falls on contrast nephropathy in conjunction with diuretic therapy * evaluation to date noted: * urine electrolytes pre-renal (by FeNA) * renal ultrasound unremarkable * CPK only mildly elevated - not likely to have affected kidney function * moderate proteinuria * renal scan with uptake but delayed clearance suggestive of ATN * on oral bumex currently * follow repeat labs and UOP (2) Chronic kidney disease, stage 3b: Code(s): N18.32 - Chronic kidney disease, stage 3b Status: Chronic Assessment and Plan: * baseline creatinine runs in the 2ish range (but has fluctuated to extremes...) * this translates to a GFR in the low 30s range * etiology is due to hypertension, diabetes, and age-related change with some contributions from FILI and chronic diuretic therapy (3) Acute on chronic heart failure with preserved ejection fraction: Code(s): I50.33 - Acute on chronic diastolic (congestive) heart failure Status: Acute Assessment and Plan: * suspected based on presentation of SOB and evidence of fluid overload * recent Echo noted: LVEF 60-65%, frade 1 diastolic dysfunction, mild biatrial enlargement, mild TR * appears compensated at this time - unclear if ongoing dyspnea is related to CHF at this time... * diuretics were on hold due to #1 -- now back on oral bumex * continue to monitor daily weights, urine output, and I/O's * Cardiology recommendations noted - plan to add Jardiance and spironolactone once renal function improves (4) Edema: Code(s): R60.9 - Edema, unspecified Status: Acute Assessment and Plan: * significant and chronic issue * likely due to a combination of salt/fluid retention (from kidney disease), proteinuria, diastolic heart failure, FILI, and chronic lymphedema * diuretics were on hold due to #1 -- now back on oral bumex * continue treatment of her FILI * elevate legs as tolerated * follow-up with lymphedema clinic as outpatient (5) Essential hypertension: Code(s): I10 - Essential (primary) hypertension Status: Chronic Assessment and Plan: * reasonable control * continue current medications * follow trend of hemodynamics (6) Type 2 diabetes mellitus with hyperglycemia: Code(s): E11.65 - Type 2 diabetes mellitus with hyperglycemia Status: Chronic Assessment and Plan: * follow accu-cheks * glycemic control per hospitalists Will continue to follow. Subjective Date/time seen: 10/12/23 10:52 Interval history: Follow-up for acute kidney injury/acute renal failure on chronic kidney disease. Continue to tolerated oral bumex therapy with reasonable urine output with relative stability in renal function/creatinine by trend of labs; in spite of this, continues to voice concerns of shortness of breath with any physical activity (i.e. walking to the bathroom in her hospital room); no events overnight or earlier today. Exam Narrative: General: elderly but WD/WN female in NAD Heart: normal S1 and S2; no rub Lungs: clear anteriorly; decreased at bases Abdomen: soft, nontender, nondistended, positive bowel sounds Extremities: no cyanosis or clubbing; 1 - 2+ edema Skin: warm and dry Objective Data Vital Signs V
[2023-10-12 12:10] LABS: Glucose Point of Care 147 mg/dl (65-105)
[2023-10-12] MEDS: INSULIN ASPART (*BKC) 100 UNITS/ML 15 UNITS SUB-Q ×2 (13:29→18:26)
[2023-10-12 17:13] LABS: Glucose Point of Care 141 mg/dl (65-105)
[2023-10-12] MEDS: PANTOPRAZOLE 40 MG TABLET PO (20:48)
[2023-10-12] MEDS: ALBUTEROL SULFATE (*SP) AEROSOL 1 PUFF 2 PUFF INHALATION (20:54)
[2023-10-12] MEDS: BUDESONIDE RESPULE NEB 0.5 MG/2 ML AMP INHALATION (20:54)
[2023-10-12] MEDS: INSULIN GLARGINE (*BKC) 100 UNITS/ML 42 UNITS SUB-Q (22:16)
[2023-10-12 22:59] LABS: Glucose Point of Care 160 mg/dl (65-105)
[2023-10-13] VITALS (12 sets, daily range): BP systolic 124–138; BP diastolic 62–82; PULSE 59–67; RESP 18; TEMP 36.4–36.5; O2SAT 97–100
[2023-10-13 05:46] LABS: Basophils Percent Auto 0.5 % (0.2-1.2); Eosinophils Absolute Auto 0.2 K/mm3 (0-0.3); Eosinophils Percent Auto 2.9 % (0-4.4); Hematocrit 28.9 % (37.0-47.0); Immature Granulocyte Absolute 0.01 K/mm3 (0.00-0.031); Immature Granulocyte Percent A 0.2 % (0-0.5); Immature Platelet Fraction Pct 12.9 % (0.9-11.2); Lymphocytes Percent Auto 28.6 % (18.3-44.2); Mean Corpuscular HGB Conc 31.1 g/dl (32-36); Mean Corpuscular Hemoglobin 30.2 pg (26-34); Mean Platelet Volume 13.9 fl (7.4-10.4); Monocytes Absolute Auto 0.9 K/mm3 (0.1-0.6); Neutrophils Absolute Auto 3.4 K/mm3 (1.3-6.7); Neutrophils Percent Auto 53.8 % (45.5-73.1); Platelet Count Result 115 k/mm3 (150-375); Red Blood Count 2.98 M/mm3 (4.2-5.4); Red Cell Distribution Width 15.7 % (11.5-14.5); White Blood Count 6.3 K/mm3 (4.5-10.0)
[2023-10-13 06:03] LABS: Alanine Aminotransferase 15 U/L (6-35); Albumin Level 2.9 g/dL (3.5-5.1); Alkaline Phosphatase 57 U/L (38-126); Anion Gap 1 mmol/L (8-16); Aspartate Amino Transferase 26 U/L (14-36); Bilirubin,Total 0.4 mg/dL (0.2-1.3); Blood Urea Nitrogen 32 mg/dL (7-17); Calcium 8.6 mg/dL (8.4-10.2); Carbon Dioxide 30 mmol/L (22-30); Chloride 109 mmol/L (98-107); Estimated CRCL calculation 33 ml/min; Estimated Glomerular Filt Rate 28; Glucose 95 mg/dL (65-110); Magnesium 1.9 mg/dL (1.6-2.3); Potassium 3.6 mmol/L (3.4-5.0); Sodium 140 mmol/L (137-145)
[2023-10-13] MEDS: BUDESONIDE RESPULE NEB 0.5 MG/2 ML AMP INHALATION ×2 (07:47→21:19)
[2023-10-13 08:19] LABS: Glucose Point of Care 74 mg/dl (65-105)
[2023-10-13] MEDS: METOPROLOL TARTRATE 12.5 MG TABLET PO ×2 (09:31→20:54)
[2023-10-13] MEDS: BUMETANIDE 1 MG TABLET PO (09:31)
[2023-10-13] MEDS: ENOXAPARIN 40 MG/0.4 ML SYRINGE SUB-Q (09:31)
[2023-10-13] MEDS: guaiFENesin 12 HR 600 MG TABCR PO ×2 (09:31→20:54)
[2023-10-13] MEDS: SIMETHICONE 80 MG TAB.CHEW PO ×4 (09:31→20:55)
[2023-10-13] MEDS: CLOPIDOGREL BISULFATE 75 MG TABLET PO (09:31)
[2023-10-13] MEDS: ASPIRIN 81 MG CHEWABLE TABLET PO (09:32)
[2023-10-13] MEDS: METOPROLOL TARTRATE 25 MG TABLET PO ×2 (09:32→20:55)
[2023-10-13] MEDS: FAMOTIDINE 20 MG TABLET 40 MG PO (09:32)
[2023-10-13] MEDS: predniSONE 10 MG TABLET PO (09:32)
[2023-10-13] MEDS: EZETIMIBE 10 MG TABLET PO (09:33)
[2023-10-13] MEDS: KETOROLAC 0.5% OP SOLN 5 ML BOTTLE 1 DROP RIGHT EYE ×3 (09:33→18:10)
--- NOTE | 2023-10-13 12:15 | P.PNNP_ITS ---
Progress Note: A&P Assessment and Plan (1) KEZIA (acute kidney injury): Code(s): N17.9 - Acute kidney failure, unspecified Status: Acute Assessment and Plan: * improvement by trend of labs * suspicion falls on contrast nephropathy in conjunction with diuretic therapy * evaluation to date noted: * urine electrolytes pre-renal (by FeNA) * renal ultrasound unremarkable * CPK only mildly elevated - not likely to have affected kidney function * moderate proteinuria * renal scan with uptake but delayed clearance suggestive of ATN * on oral bumex currently * follow repeat labs and UOP (2) Chronic kidney disease, stage 3b: Code(s): N18.32 - Chronic kidney disease, stage 3b Status: Chronic Assessment and Plan: * baseline creatinine runs in the 2ish range (but has fluctuated to extremes...) * this translates to a GFR in the low 30s range * etiology is due to hypertension, diabetes, and age-related change with some contributions from FILI and chronic diuretic therapy (3) Acute on chronic heart failure with preserved ejection fraction: Code(s): I50.33 - Acute on chronic diastolic (congestive) heart failure Status: Acute Assessment and Plan: * suspected based on presentation of SOB and evidence of fluid overload * recent Echo noted: LVEF 60-65%, frade 1 diastolic dysfunction, mild biatrial enlargement, mild TR * unclear if ongoing dyspnea is related to CHF at this time... * almost 8.5L negative since admission * diuretics were on hold due to #1 -- now back on oral bumex * will switch back to IV bumex * consider further imaging (noncontrast CT) to evaluate lungs * COPD/FILI playing a role with dyspnea(?) * continue to monitor daily weights, urine output, and I/O's * Cardiology recommendations noted - plan to add Jardiance and spironolactone once renal function improves (4) Edema: Code(s): R60.9 - Edema, unspecified Status: Acute Assessment and Plan: * significant and chronic issue * likely due to a combination of salt/fluid retention (from kidney disease), proteinuria, diastolic heart failure, FILI, and chronic lymphedema * diuretics were on hold due to #1 -- now back on oral bumex * plan trasition back to IV bumex (see #3) * continue treatment of her FILI * elevate legs as tolerated * follow-up with lymphedema clinic as outpatient (5) Essential hypertension: Code(s): I10 - Essential (primary) hypertension Status: Chronic Assessment and Plan: * reasonable control * continue current medications * follow trend of hemodynamics (6) Type 2 diabetes mellitus with hyperglycemia: Code(s): E11.65 - Type 2 diabetes mellitus with hyperglycemia Status: Chronic Assessment and Plan: * follow accu-cheks * glycemic control per hospitalists Discussed case with Dr. Belcher Will continue to follow. Subjective Date/time seen: 10/13/23 12:15 Interval history: Follow-up for acute kidney injury/acute renal failure on chronic kidney disease. Renal function/creatinine better in spite of oral diuretic therapy with acceptable urine output; however, she continues to voice concerns about her shortness of breath with any activity as well as subjective wheezing; LE edema seems stable if not a bit better; no other acute complaints to report. Exam Narrative: General: elderly but WD/WN female in NAD Heart: normal S1 and S2; no rub Lungs: clear anteriorly; coarse and decreased at bases Abdom
--- NOTE | 2023-10-13 12:15 | PM.PNNEP ---
Progress Note: A&P Assessment and Plan (1) KEZIA (acute kidney injury): Code(s): N17.9 - Acute kidney failure, unspecified Status: Acute Assessment and Plan: improvement by trend of labs suspicion falls on contrast nephropathy in conjunction with diuretic therapy evaluation to date noted: urine electrolytes pre-renal (by FeNA) renal ultrasound unremarkable CPK only mildly elevated - not likely to have affected kidney function moderate proteinuria renal scan with uptake but delayed clearance suggestive of ATN on oral bumex currently follow repeat labs and UOP (2) Chronic kidney disease, stage 3b: Code(s): N18.32 - Chronic kidney disease, stage 3b Status: Chronic Assessment and Plan: baseline creatinine runs in the 2ish range (but has fluctuated to extremes...) this translates to a GFR in the low 30s range etiology is due to hypertension, diabetes, and age-related change with some contributions from FILI and chronic diuretic therapy (3) Acute on chronic heart failure with preserved ejection fraction: Code(s): I50.33 - Acute on chronic diastolic (congestive) heart failure Status: Acute Assessment and Plan: suspected based on presentation of SOB and evidence of fluid overload recent Echo noted: LVEF 60-65%, frade 1 diastolic dysfunction, mild biatrial enlargement, mild TR unclear if ongoing dyspnea is related to CHF at this time... almost 8.5L negative since admission diuretics were on hold due to #1 -- now back on oral bumex will switch back to IV bumex consider further imaging (noncontrast CT) to evaluate lungs COPD/FILI playing a role with dyspnea(?) continue to monitor daily weights, urine output, and I/O's Cardiology recommendations noted - plan to add Jardiance and spironolactone once renal function improves (4) Edema: Code(s): R60.9 - Edema, unspecified Status: Acute Assessment and Plan: significant and chronic issue likely due to a combination of salt/fluid retention (from kidney disease), proteinuria, diastolic heart failure, FILI, and chronic lymphedema diuretics were on hold due to #1 -- now back on oral bumex plan trasition back to IV bumex (see #3) continue treatment of her FILI elevate legs as tolerated follow-up with lymphedema clinic as outpatient (5) Essential hypertension: Code(s): I10 - Essential (primary) hypertension Status: Chronic Assessment and Plan: reasonable control continue current medications follow trend of hemodynamics (6) Type 2 diabetes mellitus with hyperglycemia: Code(s): E11.65 - Type 2 diabetes mellitus with hyperglycemia Status: Chronic Assessment and Plan: follow accu-cheks glycemic control per hospitalists Discussed case with Dr. Belcher Will continue to follow. Subjective Date/time seen: 10/13/23 12:15 Interval history: Follow-up for acute kidney injury/acute renal failure on chronic kidney disease. Renal function/creatinine better in spite of oral diuretic therapy with acceptable urine output; however, she continues to voice concerns about her shortness of breath with any activity as well as subjective wheezing; LE edema seems stable if not a bit better; no other acute complaints to report. Exam Narrative: General: elderly but WD/WN female in NAD Heart: normal S1 and S2; no rub Lungs: clear anteriorly; coarse and decreased at bases Abdomen: soft, nontender, nondistended, positive bowel sounds Extremities: no cyanosis or clubbing; 1 - 2+ edema Skin: warm and intact Objective Data Vital Signs Vital Signs: Vital Signs Temp Pulse Resp BP Pulse Ox O2 Del Method 10/13/23 12:00 97.6 F 61 18 136/82 97 10/13/23 08:00 Room Air 10/13/23 08:00 97.7 F 64 18 138/78 98 10/13/23 09:32 64 10/13/23 09:31 64 10/13/23 07:56 60 18 10/13/23 07:49 59 L
[2023-10-13 12:22] LABS: Glucose Point of Care 117 mg/dl (65-105)
--- NOTE | 2023-10-13 15:21 | PM.IMPN ---
Progress Note: A&P Assessment and Plan (1) Lung infiltrate: Code(s): R91.8 - Other nonspecific abnormal finding of lung field Status: Acute (2) Type 2 diabetes mellitus with hyperglycemia: Code(s): E11.65 - Type 2 diabetes mellitus with hyperglycemia Status: Chronic (3) Essential hypertension: Code(s): I10 - Essential (primary) hypertension Status: Chronic (4) Chronic kidney disease, stage 3: Code(s): N18.3 - Chronic kidney disease, stage 3 (moderate) Status: Chronic (5) FILI (obstructive sleep apnea): Code(s): G47.33 - Obstructive sleep apnea (adult) (pediatric) Status: Acute (6) GERD (gastroesophageal reflux disease): Code(s): K21.9 - Gastro-esophageal reflux disease without esophagitis Status: Acute (7) COPD (chronic obstructive pulmonary disease): Code(s): J44.9 - Chronic obstructive pulmonary disease, unspecified Status: Acute (8) Insulin dependent type 2 diabetes mellitus: Code(s): E11.9 - Type 2 diabetes mellitus without complications; Z79.4 - USP (current) use of insulin Status: Acute (9) Coronary artery disease: Code(s): I25.10 - Atherosclerotic heart disease of [place] coronary artery without angina pectoris Status: Acute (10) Morbid obesity with BMI of 45.0-49.9, adult: Code(s): E66.01 - Morbid (severe) obesity due to excess calories; Z68.42 - Body mass index [BMI] 45.0-49.9, adult Status: Acute Plan 73-year-old female with history of coronary artery disease [place] in December 2 needed 12 status post CABG hypothyroidism hyperlipidemia hypertension insulin-dependent type 2 diabetes-for edema CKD stage 3 congestive heart failure anemia requiring transfusion presented to the ED for chest pain and shortness of breath intermittently for the past 3 weeks. She also has diagnosis of FILI and a trial of CPAP. Stress test on 09/19/2023 reports it is revealed of blockage in 1 of her coronary arteries. She reported right-sided chest wall pain for the past 3 weeks intermittently. Sometimes the pain radiates down her bilateral arms. Associated shortness of breath and dry cough. She also reported lower extremity edema which he attributes to lymphedema. Worsening orthopnea and 20 lb weight gain in the past 3 weeks. She has been taking her Bumex as prescribed. She received DuoNeb in the ED with some improvement. Prior echocardiogram 02/16/2020 showed moderately increased LV wall thickness EF of 60-65% grade 2 diastolic dysfunction right atrial chamber mildly enlarged severe pulmonary hypertension with PA systolic pressure measuring 68 mm Hg. On ED evaluation she was hypertension is oxygenation was adequate. Laboratory evaluation showed normal WBC creatinine 1.6 BNP 1850 COVID RSV flu negative EKG with ST-T changes with no acute findings. Initial troponin within normal limits. Serial troponin remained negative. D-dimer elevated at 2.[address] was performed which showed no PE but showed mild pulmonary edema with small pleural effusions and small pulmonary nodules with interval changes in distribution which may be a component of pulmonary edema and or or may be an infection. She had mild wheezing on presented to the ED which improved with DuoNeb. She has been started on IV diuresis with Lasix IV b.i.d.. Suspected CHF exacerbation. This is been switched to Bumex IV renal function stable with diuresis. Negative balance. His creatinine has bumped up Bumex dose has been reduced by vest backer. Creatinine continues to worsen. Bumex on hold. Possible pneumonia she has also been restarted on Rocephin and azithromycin. This has been switched to oral cefdinir and azithromycin. She has been off antibiotics after completing antibiotic course. Echo with EF 60-65% moderate concentric increased left ventricular wall thickness grade 1 diastolic dysfunction. Needs blood pressure control add amlodipine. However reports dry mout
[2023-10-13 17:38] LABS: Glucose Point of Care 222 mg/dl (65-105)
[2023-10-13] MEDS: INSULIN ASPART (*BKC) 100 UNITS/ML 15 UNITS SUB-Q (18:09)
[2023-10-13] MEDS: BUMETANIDE INJ 1 MG/4 ML VIAL IV PUSH (18:10)
[2023-10-13 20:34] LABS: Glucose Point of Care 170 mg/dl (65-105)
[2023-10-13] MEDS: PANTOPRAZOLE 40 MG TABLET PO (20:55)
[2023-10-13] MEDS: INSULIN GLARGINE (*BKC) 100 UNITS/ML 42 UNITS SUB-Q (20:55)
[2023-10-13] MEDS: ALBUTEROL SULFATE NEB 2.5 MG/3 ML INH INHALATION (21:20)
[2023-10-14] VITALS (13 sets, daily range): BP systolic 148–157; BP diastolic 62–85; PULSE 57–70; RESP 15–18; TEMP 36.1–36.7; O2SAT 96–99
[2023-10-14 04:14] LABS: Glucose Point of Care 123 mg/dl (65-105)
[2023-10-14] MEDS: BUDESONIDE RESPULE NEB 0.5 MG/2 ML AMP INHALATION ×2 (06:55→20:05)
[2023-10-14 08:25] LABS: Glucose Point of Care 79 mg/dl (65-105)
[2023-10-14] MEDS: BUMETANIDE INJ 1 MG/4 ML VIAL IV PUSH (09:41)
[2023-10-14] MEDS: predniSONE 10 MG TABLET PO (09:42)
[2023-10-14] MEDS: SIMETHICONE 80 MG TAB.CHEW PO ×4 (09:42→20:16)
[2023-10-14] MEDS: METOPROLOL TARTRATE 12.5 MG TABLET PO ×2 (09:42→20:16)
[2023-10-14] MEDS: FAMOTIDINE 20 MG TABLET 40 MG PO (09:42)
[2023-10-14] MEDS: ASPIRIN 81 MG CHEWABLE TABLET PO (09:42)
[2023-10-14] MEDS: CLOPIDOGREL BISULFATE 75 MG TABLET PO (09:42)
[2023-10-14] MEDS: METOPROLOL TARTRATE 25 MG TABLET PO ×2 (09:42→20:16)
[2023-10-14] MEDS: guaiFENesin 12 HR 600 MG TABCR PO ×2 (09:42→20:16)
[2023-10-14] MEDS: EZETIMIBE 10 MG TABLET PO (09:42)
[2023-10-14] MEDS: ENOXAPARIN 40 MG/0.4 ML SYRINGE SUB-Q (09:43)
[2023-10-14] MEDS: KETOROLAC 0.5% OP SOLN 5 ML BOTTLE 1 DROP RIGHT EYE ×3 (09:43→18:08)
[2023-10-14] MEDS: ERGOCALCIFEROL 50,000 UNITS CAPSULE 50000 UNITS PO (09:45)
[2023-10-14 12:01] LABS: Glucose Point of Care 114 mg/dl (65-105)
--- NOTE | 2023-10-14 12:17 | P.PNNP_ITS ---
Progress Note: A&P Assessment and Plan (1) KEZIA (acute kidney injury): Code(s): N17.9 - Acute kidney failure, unspecified Status: Acute Assessment and Plan: * improvement by trend of labs * suspicion falls on contrast nephropathy in conjunction with diuretic therapy * evaluation to date noted: * urine electrolytes pre-renal (by FeNA) * renal ultrasound unremarkable * CPK only mildly elevated - not likely to have affected kidney function * moderate proteinuria * renal scan with uptake but delayed clearance suggestive of ATN * on lV bumex currently * follow repeat labs and UOP (2) Chronic kidney disease, stage 3b: Code(s): N18.32 - Chronic kidney disease, stage 3b Status: Chronic Assessment and Plan: * baseline creatinine runs in the 2ish range (but has fluctuated to extremes...) * this translates to a GFR in the low 30s range * etiology is due to hypertension, diabetes, and age-related change with some contributions from FILI and chronic diuretic therapy (3) Acute on chronic heart failure with preserved ejection fraction: Code(s): I50.33 - Acute on chronic diastolic (congestive) heart failure Status: Acute Assessment and Plan: * suspected based on presentation of SOB and evidence of fluid overload * recent Echo noted: LVEF 60-65%, frade 1 diastolic dysfunction, mild biatrial enlargement, mild TR * unclear if ongoing dyspnea is related to CHF at this time... * almost 10L negative since admission * diuretics were on hold due to #1 -- now back on IV bumex * repeat CT of chest noted... * COPD/FILI playing a role with dyspnea(?) * continue to monitor daily weights, urine output, and I/O's * Cardiology recommendations noted - plan to add Jardiance and spironolactone once renal function improves (4) Edema: Code(s): R60.9 - Edema, unspecified Status: Acute Assessment and Plan: * significant and chronic issue * likely due to a combination of salt/fluid retention (from kidney disease), proteinuria, diastolic heart failure, FILI, and chronic lymphedema * diuretics were on hold due to #1 -- back on IV bumex * continue treatment of her FILI * elevate legs as tolerated * follow-up with lymphedema clinic as outpatient (5) Essential hypertension: Code(s): I10 - Essential (primary) hypertension Status: Chronic Assessment and Plan: * reasonable control * continue current medications * follow trend of hemodynamics (6) Type 2 diabetes mellitus with hyperglycemia: Code(s): E11.65 - Type 2 diabetes mellitus with hyperglycemia Status: Chronic Assessment and Plan: * follow accu-cheks * glycemic control per hospitalists Discussed case with Dr. Belcher Will continue to follow. Subjective Date/time seen: 10/14/23 12:17 Interval history: Follow-up for acute kidney injury/acute renal failure on chronic kidney disease. Better diuresis noted in the last 24 hours with institution of IV diuresis but the patient still reports shortness of breath/dyspnea, particularly in the evening, and with exertional activities; no other issues/events overnight or earlier this morning; results of CT scan of chest noted. Exam Narrative: General: elderly but WD/WN female in NAD Heart: normal S1 and S2; no rub Lungs: clear anteriorly; coarse and decreased at bases Abdomen: soft, nontender, nondistended, positive bowel sounds Extremities: no cyanosis or clubbing; 1 - 2+ edema Skin: no rash
--- NOTE | 2023-10-14 12:17 | PM.PNNEP ---
Progress Note: A&P Assessment and Plan (1) KEZIA (acute kidney injury): Code(s): N17.9 - Acute kidney failure, unspecified Status: Acute Assessment and Plan: improvement by trend of labs suspicion falls on contrast nephropathy in conjunction with diuretic therapy evaluation to date noted: urine electrolytes pre-renal (by FeNA) renal ultrasound unremarkable CPK only mildly elevated - not likely to have affected kidney function moderate proteinuria renal scan with uptake but delayed clearance suggestive of ATN on lV bumex currently follow repeat labs and UOP (2) Chronic kidney disease, stage 3b: Code(s): N18.32 - Chronic kidney disease, stage 3b Status: Chronic Assessment and Plan: baseline creatinine runs in the 2ish range (but has fluctuated to extremes...) this translates to a GFR in the low 30s range etiology is due to hypertension, diabetes, and age-related change with some contributions from FILI and chronic diuretic therapy (3) Acute on chronic heart failure with preserved ejection fraction: Code(s): I50.33 - Acute on chronic diastolic (congestive) heart failure Status: Acute Assessment and Plan: suspected based on presentation of SOB and evidence of fluid overload recent Echo noted: LVEF 60-65%, frade 1 diastolic dysfunction, mild biatrial enlargement, mild TR unclear if ongoing dyspnea is related to CHF at this time... almost 10L negative since admission diuretics were on hold due to #1 -- now back on IV bumex repeat CT of chest noted... COPD/FILI playing a role with dyspnea(?) continue to monitor daily weights, urine output, and I/O's Cardiology recommendations noted - plan to add Jardiance and spironolactone once renal function improves (4) Edema: Code(s): R60.9 - Edema, unspecified Status: Acute Assessment and Plan: significant and chronic issue likely due to a combination of salt/fluid retention (from kidney disease), proteinuria, diastolic heart failure, FILI, and chronic lymphedema diuretics were on hold due to #1 -- back on IV bumex continue treatment of her FILI elevate legs as tolerated follow-up with lymphedema clinic as outpatient (5) Essential hypertension: Code(s): I10 - Essential (primary) hypertension Status: Chronic Assessment and Plan: reasonable control continue current medications follow trend of hemodynamics (6) Type 2 diabetes mellitus with hyperglycemia: Code(s): E11.65 - Type 2 diabetes mellitus with hyperglycemia Status: Chronic Assessment and Plan: follow accu-cheks glycemic control per hospitalists Discussed case with Dr. Belcher Will continue to follow. Subjective Date/time seen: 10/14/23 12:17 Interval history: Follow-up for acute kidney injury/acute renal failure on chronic kidney disease. Better diuresis noted in the last 24 hours with institution of IV diuresis but the patient still reports shortness of breath/dyspnea, particularly in the evening, and with exertional activities; no other issues/events overnight or earlier this morning; results of CT scan of chest noted. Exam Narrative: General: elderly but WD/WN female in NAD Heart: normal S1 and S2; no rub Lungs: clear anteriorly; coarse and decreased at bases Abdomen: soft, nontender, nondistended, positive bowel sounds Extremities: no cyanosis or clubbing; 1 - 2+ edema Skin: no rash Objective Data Vital Signs Vital Signs: Vital Signs Temp Pulse Resp BP Pulse Ox O2 Del Method 10/14/23 12:15 57 L 18 10/14/23 08:30 Room Air 10/14/23 09:42 70 10/14/23 09:42 70 10/14/23 07:05 63 18 10/14/23 06:55 62 18 10/14/23 06:55 62 18 98 Room Air 10/13/23 21:35 67 18 10/13/23 21:20 63 18 10/13/23 21:20 98 Room Air 10/13/23 20:30 Room Air 10/13/23 23:55 65 98
[2023-10-14] MEDS: ALBUTEROL SULFATE NEB 2.5 MG/3 ML INH INHALATION (12:55)
[2023-10-14 14:19] LABS: Basophils Percent Auto 0.3 % (0.2-1.2); Eosinophils Absolute Auto 0.1 K/mm3 (0-0.3); Eosinophils Percent Auto 1.7 % (0-4.4); Hematocrit 31.4 % (37.0-47.0); Hemoglobin 9.8 g/dL (12.0-15.0); Immature Granulocyte Absolute 0.01 K/mm3 (0.00-0.031); Immature Granulocyte Percent A 0.2 % (0-0.5); Immature Platelet Fraction Pct 11.6 % (0.9-11.2); Lymphocytes Absolute Auto 1.13 K/mm3 (0.9-3.2); Lymphocytes Percent Auto 18.9 % (18.3-44.2); Mean Corpuscular HGB Conc 31.2 g/dl (32-36); Mean Corpuscular Hemoglobin 30.2 pg (26-34); Mean Corpuscular Volume 96.6 fl (80-100); Mean Platelet Volume 13.3 fl (7.4-10.4); Monocytes Absolute Auto 0.7 K/mm3 (0.1-0.6); Monocytes Percent Auto 11.7 % (2.6-8.5); Neutrophils Percent Auto 67.2 % (45.5-73.1); Platelet Count Result 134 k/mm3 (150-375); Red Blood Count 3.25 M/mm3 (4.2-5.4); Red Cell Distribution Width 15.9 % (11.5-14.5)
[2023-10-14 14:26] LABS: Alanine Aminotransferase 20 U/L (6-35); Albumin Level 3.7 g/dL (3.5-5.1); Alkaline Phosphatase 63 U/L (38-126); Anion Gap 4 mmol/L (8-16); Aspartate Amino Transferase 30 U/L (14-36); Bilirubin,Total 0.5 mg/dL (0.2-1.3); Blood Urea Nitrogen 34 mg/dL (7-17); Calcium 8.9 mg/dL (8.4-10.2); Carbon Dioxide 30 mmol/L (22-30); Chloride 107 mmol/L (98-107); Estimated CRCL calculation 29 ml/min; Estimated Glomerular Filt Rate 25; Glucose 110 mg/dL (65-110); Magnesium 1.9 mg/dL (1.6-2.3); Potassium 3.8 mmol/L (3.4-5.0); Sodium 141 mmol/L (137-145)
--- NOTE | 2023-10-14 14:34 | PM.IMPN ---
Progress Note: A&P Assessment and Plan (1) Lung infiltrate: Code(s): R91.8 - Other nonspecific abnormal finding of lung field Status: Acute (2) Type 2 diabetes mellitus with hyperglycemia: Code(s): E11.65 - Type 2 diabetes mellitus with hyperglycemia Status: Chronic (3) Essential hypertension: Code(s): I10 - Essential (primary) hypertension Status: Chronic (4) Chronic kidney disease, stage 3: Code(s): N18.3 - Chronic kidney disease, stage 3 (moderate) Status: Chronic (5) FILI (obstructive sleep apnea): Code(s): G47.33 - Obstructive sleep apnea (adult) (pediatric) Status: Acute (6) GERD (gastroesophageal reflux disease): Code(s): K21.9 - Gastro-esophageal reflux disease without esophagitis Status: Acute (7) COPD (chronic obstructive pulmonary disease): Code(s): J44.9 - Chronic obstructive pulmonary disease, unspecified Status: Acute (8) Insulin dependent type 2 diabetes mellitus: Code(s): E11.9 - Type 2 diabetes mellitus without complications; Z79.4 - senior care (current) use of insulin Status: Acute (9) Coronary artery disease: Code(s): I25.10 - Atherosclerotic heart disease of [place] coronary artery without angina pectoris Status: Acute (10) Morbid obesity with BMI of 45.0-49.9, adult: Code(s): E66.01 - Morbid (severe) obesity due to excess calories; Z68.42 - Body mass index [BMI] 45.0-49.9, adult Status: Acute Plan 73-year-old female with history of coronary artery disease [place] in December 2 needed 12 status post CABG hypothyroidism hyperlipidemia hypertension insulin-dependent type 2 diabetes-for edema CKD stage 3 congestive heart failure anemia requiring transfusion presented to the ED for chest pain and shortness of breath intermittently for the past 3 weeks. She also has diagnosis of FILI and a trial of CPAP. Stress test on 09/19/2023 reports it is revealed of blockage in 1 of her coronary arteries. She reported right-sided chest wall pain for the past 3 weeks intermittently. Sometimes the pain radiates down her bilateral arms. Associated shortness of breath and dry cough. She also reported lower extremity edema which he attributes to lymphedema. Worsening orthopnea and 20 lb weight gain in the past 3 weeks. She has been taking her Bumex as prescribed. She received DuoNeb in the ED with some improvement. Prior echocardiogram 02/16/2020 showed moderately increased LV wall thickness EF of 60-65% grade 2 diastolic dysfunction right atrial chamber mildly enlarged severe pulmonary hypertension with PA systolic pressure measuring 68 mm Hg. On ED evaluation she was hypertension is oxygenation was adequate. Laboratory evaluation showed normal WBC creatinine 1.6 BNP 1850 COVID RSV flu negative EKG with ST-T changes with no acute findings. Initial troponin within normal limits. Serial troponin remained negative. D-dimer elevated at 2.[address] was performed which showed no PE but showed mild pulmonary edema with small pleural effusions and small pulmonary nodules with interval changes in distribution which may be a component of pulmonary edema and or or may be an infection. She had mild wheezing on presented to the ED which improved with DuoNeb. She has been started on IV diuresis with Lasix IV b.i.d.. Suspected CHF exacerbation. This is been switched to Bumex IV renal function stable with diuresis. Negative balance. His creatinine has bumped up Bumex dose has been reduced by toll transmission worker. Creatinine continues to worsen. Bumex on hold. Possible pneumonia she has also been restarted on Rocephin and azithromycin. This has been switched to oral cefdinir and azithromycin. She has been off antibiotics after completing antibiotic course. Echo with EF 60-65% moderate concentric increased left ventricular wall thickness grade 1 diastolic dysfunction. Needs blood pressure control add amlodipine. However reports dry mout
[2023-10-14 16:59] LABS: Glucose Point of Care 200 mg/dl (65-105)
[2023-10-14] MEDS: INSULIN ASPART (*BKC) 100 UNITS/ML 15 UNITS SUB-Q (18:08)
[2023-10-14] MEDS: ACETAMINOPHEN 325 MG TABLET 650 MG PO (20:14)
[2023-10-14] MEDS: PANTOPRAZOLE 40 MG TABLET PO (20:16)
[2023-10-14] MEDS: INSULIN GLARGINE (*BKC) 100 UNITS/ML 42 UNITS SUB-Q (20:18)
[2023-10-14 21:40] LABS: Glucose Point of Care 151 mg/dl (65-105)
[2023-10-15] VITALS (12 sets, daily range): BP systolic 154–161; BP diastolic 46–93; PULSE 61–68; RESP 16–20; TEMP 36.3–36.4; O2SAT 96–100
[2023-10-15 05:35] LABS: Glucose Point of Care 57 mg/dl (65-105)
[2023-10-15] MEDS: DEXTROSE 50% 25 GM/50 ML SYRINGE IV PUSH (05:59)
[2023-10-15 06:03] LABS: Basophils Percent Auto 0.5 % (0.2-1.2); Eosinophils Absolute Auto 0.2 K/mm3 (0-0.3); Eosinophils Percent Auto 2.8 % (0-4.4); Hemoglobin 9.1 g/dL (12.0-15.0); Immature Granulocyte Absolute 0.01 K/mm3 (0.00-0.031); Immature Granulocyte Percent A 0.2 % (0-0.5); Immature Platelet Fraction Pct 12.7 % (0.9-11.2); Lymphocytes Absolute Auto 1.99 K/mm3 (0.9-3.2); Lymphocytes Percent Auto 32.3 % (18.3-44.2); Mean Corpuscular HGB Conc 31.4 g/dl (32-36); Mean Corpuscular Hemoglobin 30.4 pg (26-34); Mean Platelet Volume 14.1 fl (7.4-10.4); Monocytes Absolute Auto 1.1 K/mm3 (0.1-0.6); Monocytes Percent Auto 17.4 % (2.6-8.5); Neutrophils Absolute Auto 2.9 K/mm3 (1.3-6.7); Neutrophils Percent Auto 46.8 % (45.5-73.1); Platelet Count Result 136 k/mm3 (150-375); Red Blood Count 2.99 M/mm3 (4.2-5.4); Red Cell Distribution Width 15.6 % (11.5-14.5); White Blood Count 6.2 K/mm3 (4.5-10.0)
[2023-10-15 06:14] LABS: Glucose Point of Care 73 mg/dl (65-105)
[2023-10-15 06:14] LABS: Alanine Aminotransferase 18 U/L (6-35); Albumin Level 3.2 g/dL (3.5-5.1); Alkaline Phosphatase 54 U/L (38-126); Anion Gap 2 mmol/L (8-16); Aspartate Amino Transferase 31 U/L (14-36); Bilirubin,Total 0.4 mg/dL (0.2-1.3); Blood Urea Nitrogen 33 mg/dL (7-17); Calcium 8.4 mg/dL (8.4-10.2); Carbon Dioxide 29 mmol/L (22-30); Chloride 108 mmol/L (98-107); Estimated CRCL calculation 32 ml/min; Estimated Glomerular Filt Rate 28; Glucose 50 mg/dL (65-110); Magnesium 1.9 mg/dL (1.6-2.3); Phosphorus 4.1 mg/dL (2.5-4.5); Potassium 3.3 mmol/L (3.4-5.0); Sodium 139 mmol/L (137-145)
[2023-10-15 06:22] LABS: Glucose Point of Care 157 mg/dl (65-105)
[2023-10-15 08:43] LABS: Glucose Point of Care 87 mg/dl (65-105)
[2023-10-15] MEDS: ASPIRIN 81 MG CHEWABLE TABLET PO (08:56)
[2023-10-15] MEDS: CLOPIDOGREL BISULFATE 75 MG TABLET PO (08:56)
[2023-10-15] MEDS: METOPROLOL TARTRATE 25 MG TABLET PO ×2 (08:56→21:08)
[2023-10-15] MEDS: FAMOTIDINE 20 MG TABLET 40 MG PO (08:56)
[2023-10-15] MEDS: METOPROLOL TARTRATE 12.5 MG TABLET PO ×2 (08:56→21:07)
[2023-10-15] MEDS: guaiFENesin 12 HR 600 MG TABCR PO ×2 (08:56→21:07)
[2023-10-15] MEDS: predniSONE 10 MG TABLET PO (08:56)
[2023-10-15] MEDS: SIMETHICONE 80 MG TAB.CHEW PO ×3 (08:56→21:08)
[2023-10-15] MEDS: EZETIMIBE 10 MG TABLET PO (08:56)
[2023-10-15] MEDS: ENOXAPARIN 40 MG/0.4 ML SYRINGE SUB-Q (08:57)
[2023-10-15] MEDS: polyethylene glycoL 3350 17 GM POWD.PACK PO (08:57)
[2023-10-15] MEDS: KETOROLAC 0.5% OP SOLN 5 ML BOTTLE 1 DROP RIGHT EYE ×2 (08:58→12:52)
[2023-10-15] MEDS: POTASSIUM CHLORIDE 20 MEQ ER TABLET PO (09:04)
[2023-10-15] MEDS: BUDESONIDE RESPULE NEB 0.5 MG/2 ML AMP INHALATION ×2 (09:06→20:41)
[2023-10-15] MEDS: ALBUTEROL SULFATE NEB 2.5 MG/3 ML INH INHALATION (09:07)
[2023-10-15 12:05] LABS: Glucose Point of Care 96 mg/dl (65-105)
--- NOTE | 2023-10-15 12:49 | PM.PNCARD ---
Progress Note: A&P Assessment and Plan (1) Acute kidney injury superimposed on chronic kidney disease: Code(s): N17.9 - Acute kidney failure, unspecified; N18.9 - Chronic kidney disease, unspecified Status: Acute (2) Chest pain: Code(s): R07.9 - Chest pain, unspecified Status: Acute Plan This is a 73-year-old lady with ischemic heart disease who underwent surgical revascularization about 3 years ago. She has normal left ventricular systolic function massive obesity and sleep apnea with picture of peripheral edema and swelling. She has clear lungs on chest x-ray as well as on CT of the chest yesterday. She is back on intravenous Bumex. I believe that loop diuretics are not going to benefit this patient very much as we saw no significant benefit during the 1st couple of weeks she was in the hospital and only saw her renal function worsened. I do not believe therefore that she has a pattern of left-sided congestive heart failure as her lungs are clear on chest CT that was done yesterday. She is understandably frustrated by the current situation but at this point aggressive treatment of her sleep apnea with CPAP is probably the most important thing to stress and recommend. Because of her acute renal insufficiency and lack of ischemic symptoms I would not recommend bringing her to the [facility] for angiography as I mentioned in my most recent note. I do not believe her symptoms of tightness in the chest are related to myocardial ischemia based on the other objective findings. Stress testing was done in our office as I mentioned in my consultation note that was abnormal however given her body habitus it would be very unlikely for a nuclear scan to be negative. Earl Arcos MD [facility] Subjective Date/time seen: Date of service: 10/15/23 12:49 Interval history: Reason for visit: Acute on chronic diastolic heart failure HPI: This is a 73-year-old woman I am seeing at the request of the hospitalist because of the diagnosis of CHF exacerbation.? She is known to Dr. Sanchez of our practice but I do not believe I have seen this lady in the past.? She has a history of chronic coronary artery disease and a history of diastolic left ventricular dysfunction by evaluation that has been done over the last several years in our office.? She was found to have coronary artery disease when she presented to this hospital with ACS back in 2020.? She was brought to the cardiac catheterization lab and found to have multivessel coronary disease including high-grade ostial stenosis of the LAD.? She was referred to [facility] for surgical revascularization.? She received an DANA graft to the LAD, a radial graft to the PDA and a saphenous vein graft to the OM.? She has been seeing Dr. Sanchez since then and chronically has complaints of shortness of breath and variable amounts of lower extremity edema which has been attributed to morbid obesity and the concept that she also may have lymphedema.? She has had recent stress tests and echocardiograms demonstrating normal left ventricular systolic function.? During her most recent office visit she continued re complain of exertional dyspnea and so a Lexiscan nuclear stress test was done to ensure there was a ischemic burden.? That study was done in our office on 09/28/2023.? It was interpreted by my partner is showing evidence of an ejection fraction of 58% and there was evidence of severe multivessel ischemia with several ischemic defects being identified.? Interpreting this of course has to be taken indigo account her BMI of 55.? Because of these findings follow-up left heart catheterization was recommended and is currently scheduled to be done in the last week of this month over at [facility] as an outpatient.Her ongoing symptoms of shortness of breath and edema made her concerned and she came back to this hospital and was once again readmitted to the hospital. Upon coming into her room
--- NOTE | 2023-10-15 14:45 | PM.PNNEP ---
Progress Note: A&P Assessment and Plan (1) KEZIA (acute kidney injury): Code(s): N17.9 - Acute kidney failure, unspecified Status: Acute Assessment and Plan: improvement by trend of labs suspicion falls on contrast nephropathy in conjunction with diuretic therapy evaluation to date noted: urine electrolytes pre-renal (by FeNA) renal ultrasound unremarkable CPK only mildly elevated - not likely to have affected kidney function moderate proteinuria renal scan with uptake but delayed clearance suggestive of ATN on lV bumex currently follow repeat labs and UOP (2) Chronic kidney disease, stage 3b: Code(s): N18.32 - Chronic kidney disease, stage 3b Status: Chronic Assessment and Plan: baseline creatinine runs in the 2ish range (but has fluctuated to extremes...) this translates to a GFR in the low 30s range etiology is due to hypertension, diabetes, and age-related change with some contributions from FILI and chronic diuretic therapy (3) Acute on chronic heart failure with preserved ejection fraction: Code(s): I50.33 - Acute on chronic diastolic (congestive) heart failure Status: Acute Assessment and Plan: suspected based on presentation of SOB and evidence of fluid overload recent Echo noted: LVEF 60-65%, frade 1 diastolic dysfunction, mild biatrial enlargement, mild TR unclear if ongoing dyspnea is related to CHF at this time... almost 10L negative since admission diuretics were on hold due to #1 -- now back on IV bumex repeat CT of chest noted... COPD/FILI playing a role with dyspnea(?) continue to monitor daily weights, urine output, and I/O's Cardiology recommendations noted plan to add Jardiance and spironolactone near discharge no plans for ischemic evaluation at this time (4) Edema: Code(s): R60.9 - Edema, unspecified Status: Acute Assessment and Plan: significant and chronic issue likely due to a combination of salt/fluid retention (from kidney disease), proteinuria, diastolic heart failure, FILI, and chronic lymphedema diuretics were on hold due to #1 -- back on IV bumex continue treatment of her FILI elevate legs as tolerated follow-up with lymphedema clinic as outpatient (5) Essential hypertension: Code(s): I10 - Essential (primary) hypertension Status: Chronic Assessment and Plan: reasonable control continue current medications follow trend of hemodynamics (6) Type 2 diabetes mellitus with hyperglycemia: Code(s): E11.65 - Type 2 diabetes mellitus with hyperglycemia Status: Chronic Assessment and Plan: follow accu-cheks glycemic control per hospitalists Will continue to follow. Subjective Date/time seen: 10/15/23 14:45 Interval history: Follow-up for acute kidney injury/acute renal failure on chronic kidney disease. Still complaining of shortness of breath/dyspnea particularly with exertion activities which seemms unchanged for the last several days despite attempts to further diurese her; Cardiology re-assement and recommendations noted earlier today; Pulmonary consulted as well; renal function relatively stable as this time. Exam Narrative: General: elderly but WD/WN female in NAD Heart: normal S1 and S2; no rub Lungs: clear anteriorly; coarse and decreased at bases Abdomen: soft, nontender, nondistended, positive bowel sounds Extremities: no cyanosis or clubbing; 1 - 2+ edema Skin: no nodules Objective Data Vital Signs Vital Signs: Vital Signs Temp Pulse Resp BP Pulse Ox O2 Del Method 10/15/23 13:55 97.5 F L 65 18 156/77 H 100 10/15/23 08:50 Room Air 10/15/23 09:25 61 18 10/15/23 09:13 64 18 97 Room Air 10/15/23 09:07 64 18 10/15/23 08:56 68 10/15/23 08:56 68 10/15/23 06:23 97.3 F L 68 20 154/46 H 97 10/15/23 03:48 63 97 Autopap 10/14/23 23
--- NOTE | 2023-10-15 14:45 | P.PNNP_ITS ---
Progress Note: A&P Assessment and Plan (1) KEZIA (acute kidney injury): Code(s): N17.9 - Acute kidney failure, unspecified Status: Acute Assessment and Plan: * improvement by trend of labs * suspicion falls on contrast nephropathy in conjunction with diuretic therapy * evaluation to date noted: * urine electrolytes pre-renal (by FeNA) * renal ultrasound unremarkable * CPK only mildly elevated - not likely to have affected kidney function * moderate proteinuria * renal scan with uptake but delayed clearance suggestive of ATN * on lV bumex currently * follow repeat labs and UOP (2) Chronic kidney disease, stage 3b: Code(s): N18.32 - Chronic kidney disease, stage 3b Status: Chronic Assessment and Plan: * baseline creatinine runs in the 2ish range (but has fluctuated to extremes...) * this translates to a GFR in the low 30s range * etiology is due to hypertension, diabetes, and age-related change with some contributions from FILI and chronic diuretic therapy (3) Acute on chronic heart failure with preserved ejection fraction: Code(s): I50.33 - Acute on chronic diastolic (congestive) heart failure Status: Acute Assessment and Plan: * suspected based on presentation of SOB and evidence of fluid overload * recent Echo noted: LVEF 60-65%, frade 1 diastolic dysfunction, mild biatrial enlargement, mild TR * unclear if ongoing dyspnea is related to CHF at this time... * almost 10L negative since admission * diuretics were on hold due to #1 -- now back on IV bumex * repeat CT of chest noted... * COPD/FILI playing a role with dyspnea(?) * continue to monitor daily weights, urine output, and I/O's * Cardiology recommendations noted * plan to add Jardiance and spironolactone near discharge * no plans for ischemic evaluation at this time (4) Edema: Code(s): R60.9 - Edema, unspecified Status: Acute Assessment and Plan: * significant and chronic issue * likely due to a combination of salt/fluid retention (from kidney disease), pr oteinuria, diastolic heart failure, FILI, and chronic lymphedema * diuretics were on hold due to #1 -- back on IV bumex * continue treatment of her FILI * elevate legs as tolerated * follow-up with lymphedema clinic as outpatient (5) Essential hypertension: Code(s): I10 - Essential (primary) hypertension Status: Chronic Assessment and Plan: * reasonable control * continue current medications * follow trend of hemodynamics (6) Type 2 diabetes mellitus with hyperglycemia: Code(s): E11.65 - Type 2 diabetes mellitus with hyperglycemia Status: Chronic Assessment and Plan: * follow accu-cheks * glycemic control per hospitalists Will continue to follow. Subjective Date/time seen: 10/15/23 14:45 Interval history: Follow-up for acute kidney injury/acute renal failure on chronic kidney disease. Still complaining of shortness of breath/dyspnea particularly with exertion act ivities which seemms unchanged for the last several days despite attempts to further diurese her; Cardiology re-assement and recommendations noted earlier today; Pulmonary consulted as well; renal function relatively stable as this time. Exam Narrative: General: elderly but WD/WN female in NAD Heart: normal S1 and S2; no rub Lungs: clear anteriorly; coarse and decreased at bases Abdomen: soft, nontender, nondistended, positive bowel sounds Extremities: no cyanosis or clubbing; 1 - 2+ ed
--- NOTE | 2023-10-15 15:06 | PM.IMPN ---
Progress Note: A&P Assessment and Plan (1) Lung infiltrate: Code(s): R91.8 - Other nonspecific abnormal finding of lung field Status: Acute (2) Type 2 diabetes mellitus with hyperglycemia: Code(s): E11.65 - Type 2 diabetes mellitus with hyperglycemia Status: Chronic (3) Essential hypertension: Code(s): I10 - Essential (primary) hypertension Status: Chronic (4) Chronic kidney disease, stage 3: Code(s): N18.3 - Chronic kidney disease, stage 3 (moderate) Status: Chronic (5) FILI (obstructive sleep apnea): Code(s): G47.33 - Obstructive sleep apnea (adult) (pediatric) Status: Acute (6) GERD (gastroesophageal reflux disease): Code(s): K21.9 - Gastro-esophageal reflux disease without esophagitis Status: Acute (7) COPD (chronic obstructive pulmonary disease): Code(s): J44.9 - Chronic obstructive pulmonary disease, unspecified Status: Acute (8) Insulin dependent type 2 diabetes mellitus: Code(s): E11.9 - Type 2 diabetes mellitus without complications; Z79.4 - detention (current) use of insulin Status: Acute (9) Coronary artery disease: Code(s): I25.10 - Atherosclerotic heart disease of [place] coronary artery without angina pectoris Status: Acute (10) Morbid obesity with BMI of 45.0-49.9, adult: Code(s): E66.01 - Morbid (severe) obesity due to excess calories; Z68.42 - Body mass index [BMI] 45.0-49.9, adult Status: Acute Plan 73-year-old female with history of coronary artery disease ID in December 2 needed 12 status post CABG hypothyroidism hyperlipidemia hypertension insulin-dependent type 2 diabetes-for edema CKD stage 3 congestive heart failure anemia requiring transfusion presented to the ED for chest pain and shortness of breath intermittently for the past 3 weeks. She also has diagnosis of FILI and a trial of CPAP. Stress test on 09/19/2023 reports it is revealed of blockage in 1 of her coronary arteries. She reported right-sided chest wall pain for the past 3 weeks intermittently. Sometimes the pain radiates down her bilateral arms. Associated shortness of breath and dry cough. She also reported lower extremity edema which he attributes to lymphedema. Worsening orthopnea and 20 lb weight gain in the past 3 weeks. She has been taking her Bumex as prescribed. She received DuoNeb in the ED with some improvement. Prior echocardiogram 02/16/2020 showed moderately increased LV wall thickness EF of 60-65% grade 2 diastolic dysfunction right atrial chamber mildly enlarged severe pulmonary hypertension with PA systolic pressure measuring 68 mm Hg. On ED evaluation she was hypertension is oxygenation was adequate. Laboratory evaluation showed normal WBC creatinine 1.6 BNP 1850 COVID RSV flu negative EKG with ST-T changes with no acute findings. Initial troponin within normal limits. Serial troponin remained negative. D-dimer elevated at 2.[address] was performed which showed no PE but showed mild pulmonary edema with small pleural effusions and small pulmonary nodules with interval changes in distribution which may be a component of pulmonary edema and or or may be an infection. She had mild wheezing on presented to the ED which improved with DuoNeb. She has been started on IV diuresis with Lasix IV b.i.d.. Suspected CHF exacerbation. This is been switched to Bumex IV renal function stable with diuresis. Negative balance. His creatinine has bumped up Bumex dose has been reduced by insurance policy issue clerk. Creatinine continues to worsen. Bumex on hold. Possible pneumonia she has also been restarted on Rocephin and azithromycin. This has been switched to oral cefdinir and azithromycin. She has been off antibiotics after completing antibiotic course. Echo with EF 60-65% moderate concentric increased left ventricular wall thickness grade 1 diastolic dysfunction. Needs blood pressure control add amlodipine. However reports dry mout
[2023-10-15 17:00] LABS: Glucose Point of Care 175 mg/dl (65-105)
[2023-10-15] MEDS: INSULIN ASPART (*BKC) 100 UNITS/ML 15 UNITS SUB-Q (17:21)
[2023-10-15] MEDS: PANTOPRAZOLE 40 MG TABLET PO (21:08)
[2023-10-15 23:15] LABS: Glucose Point of Care 202 mg/dl (65-105)
[2023-10-16] VITALS (13 sets, daily range): BP systolic 115–153; BP diastolic 48–89; PULSE 60–77; RESP 15–20; TEMP 36.1–36.8; O2SAT 97–100
[2023-10-16 06:03] LABS: Basophils Percent Auto 0.7 % (0.2-1.2); Eosinophils Absolute Auto 0.2 K/mm3 (0-0.3); Eosinophils Percent Auto 3.1 % (0-4.4); Hematocrit 29.9 % (37.0-47.0); Hemoglobin 9.4 g/dL (12.0-15.0); Immature Granulocyte Absolute 0.01 K/mm3 (0.00-0.031); Immature Granulocyte Percent A 0.2 % (0-0.5); Immature Platelet Fraction Pct 11.2 % (0.9-11.2); Lymphocytes Absolute Auto 1.83 K/mm3 (0.9-3.2); Lymphocytes Percent Auto 31.6 % (18.3-44.2); Mean Corpuscular HGB Conc 31.4 g/dl (32-36); Mean Corpuscular Hemoglobin 30.7 pg (26-34); Mean Corpuscular Volume 97.7 fl (80-100); Mean Platelet Volume 13.7 fl (7.4-10.4); Monocytes Absolute Auto 0.9 K/mm3 (0.1-0.6); Monocytes Percent Auto 16.1 % (2.6-8.5); Neutrophils Absolute Auto 2.8 K/mm3 (1.3-6.7); Neutrophils Percent Auto 48.3 % (45.5-73.1); Platelet Count Result 143 k/mm3 (150-375); Red Blood Count 3.06 M/mm3 (4.2-5.4); Red Cell Distribution Width 15.9 % (11.5-14.5); White Blood Count 5.8 K/mm3 (4.5-10.0)
[2023-10-16 06:15] LABS: Alanine Aminotransferase 21 U/L (6-35); Albumin Level 3.3 g/dL (3.5-5.1); Alkaline Phosphatase 53 U/L (38-126); Anion Gap 0 mmol/L (8-16); Aspartate Amino Transferase 30 U/L (14-36); Bilirubin,Total 0.5 mg/dL (0.2-1.3); Blood Urea Nitrogen 32 mg/dL (7-17); Calcium 8.5 mg/dL (8.4-10.2); Carbon Dioxide 32 mmol/L (22-30); Chloride 108 mmol/L (98-107); Estimated CRCL calculation 34 ml/min; Estimated Glomerular Filt Rate 29; Glucose 71 mg/dL (65-110); Potassium 3.7 mmol/L (3.4-5.0); Sodium 140 mmol/L (137-145)
[2023-10-16 07:58] LABS: Glucose Point of Care 76 mg/dl (65-105)
[2023-10-16] MEDS: METOPROLOL TARTRATE 25 MG TABLET PO ×2 (09:15→21:01)
[2023-10-16] MEDS: guaiFENesin 12 HR 600 MG TABCR PO ×2 (09:15→21:01)
[2023-10-16] MEDS: SIMETHICONE 80 MG TAB.CHEW PO ×4 (09:15→21:01)
[2023-10-16] MEDS: FAMOTIDINE 20 MG TABLET 40 MG PO (09:15)
[2023-10-16] MEDS: METOPROLOL TARTRATE 12.5 MG TABLET PO ×2 (09:16→21:01)
[2023-10-16] MEDS: EZETIMIBE 10 MG TABLET PO (09:16)
[2023-10-16] MEDS: CLOPIDOGREL BISULFATE 75 MG TABLET PO (09:16)
[2023-10-16] MEDS: predniSONE 10 MG TABLET PO (09:16)
[2023-10-16] MEDS: ENOXAPARIN 40 MG/0.4 ML SYRINGE SUB-Q (09:16)
[2023-10-16] MEDS: ASPIRIN 81 MG CHEWABLE TABLET PO (09:16)
[2023-10-16] MEDS: polyethylene glycoL 3350 17 GM POWD.PACK PO (09:17)
[2023-10-16] MEDS: KETOROLAC 0.5% OP SOLN 5 ML BOTTLE 1 DROP RIGHT EYE ×3 (09:24→17:23)
[2023-10-16] MEDS: BUDESONIDE RESPULE NEB 0.5 MG/2 ML AMP INHALATION (09:24)
[2023-10-16] MEDS: ALBUTEROL SULFATE NEB 2.5 MG/3 ML INH INHALATION (09:25)
--- NOTE | 2023-10-16 09:50 | P.PNNP_ITS ---
Progress Note: A&P Assessment and Plan (1) KEZIA (acute kidney injury): Code(s): N17.9 - Acute kidney failure, unspecified Status: Acute Assessment and Plan: * resolved (if not resolving) * suspicion falls on contrast nephropathy in conjunction with IV diuretic therapy * evaluation to date noted: * urine electrolytes pre-renal (by FeNA) * renal ultrasound unremarkable * CPK only mildly elevated - not likely to have affected kidney function * moderate proteinuria * renal scan with uptake but delayed clearance suggestive of ATN * will transition back to oral bumex * follow repeat labs and UOP (2) Chronic kidney disease, stage 3b: Code(s): N18.32 - Chronic kidney disease, stage 3b Status: Chronic Assessment and Plan: * baseline creatinine runs in the 2ish range (but has fluctuated to extremes...) * this translates to a GFR in the low 30s range * etiology is due to hypertension, diabetes, and age-related change with some contributions from FILI and chronic diuretic therapy (3) CASTELAN (dyspnea on exertion): Code(s): R06.00 - Dyspnea, unspecified Status: Acute Assessment and Plan: * initially thought to be secondary to #4 * however, this seems less likely the case now (see #4) * possibly related to OSH/OHS?? * Pulmonary consulted for further assessment * not requiring supplemental oxygen at this time (4) Acute on chronic heart failure with preserved ejection fraction: Code(s): I50.33 - Acute on chronic diastolic (congestive) heart failure Status: Acute Assessment and Plan: * suspected based on presentation of SOB and evidence of fluid overload * recent Echo noted: LVEF 60-65%, grade 1 diastolic dysfunction, mild biatrial enlargement, mild TR * unclear if ongoing dyspnea is related to CHF at this time... * almost 10L negative since admission * diuretics were on hold due to #1 -- resumed on oral bumex * repeat CT of chest noted... * COPD/FILI playing a role with dyspnea(?) * continue to monitor daily weights, urine output, and I/O's * Cardiology recommendations noted * plan to add Jardiance and spironolactone near discharge * no plans for ischemic evaluation at this time (5) Edema: Code(s): R60.9 - Edema, unspecified Status: Acute Assessment and Plan: * significant and chronic issue * likely due to a combination of salt/fluid retention (from kidney disease), proteinuria, diastolic heart failure, FILI, and chronic lymphedema * diuretics were on hold due to #1 -- back on bumex * continue treatment of her FILI * elevate legs as tolerated * follow-up with lymphedema clinic as outpatient (6) Essential hypertension: Code(s): I10 - Essential (primary) hypertension Status: Chronic Assessment and Plan: * reasonable control * continue current medications * follow trend of hemodynamics (7) Type 2 diabetes mellitus with hyperglycemia: Code(s): E11.65 - Type 2 diabetes mellitus with hyperglycemia Status: Chronic Assessment and Plan: * follow accu-cheks * glycemic control per hospitalists Will continue to follow. Subjective Date/time seen: 10/16/23 09:50 Interval history: Follow-up for acute kidney injury/acute renal failure on chronic kidney disease. Continues to endorse dyspnea on exertion with no real significant improvement in general; renal function remains relatively stable; bilateral lower extremity edema still present as well and does not appear any different; seems quite
--- NOTE | 2023-10-16 09:50 | PM.PNNEP ---
Progress Note: A&P Assessment and Plan (1) KEZIA (acute kidney injury): Code(s): N17.9 - Acute kidney failure, unspecified Status: Acute Assessment and Plan: resolved (if not resolving) suspicion falls on contrast nephropathy in conjunction with IV diuretic therapy evaluation to date noted: urine electrolytes pre-renal (by FeNA) renal ultrasound unremarkable CPK only mildly elevated - not likely to have affected kidney function moderate proteinuria renal scan with uptake but delayed clearance suggestive of ATN will transition back to oral bumex follow repeat labs and UOP (2) Chronic kidney disease, stage 3b: Code(s): N18.32 - Chronic kidney disease, stage 3b Status: Chronic Assessment and Plan: baseline creatinine runs in the 2ish range (but has fluctuated to extremes...) this translates to a GFR in the low 30s range etiology is due to hypertension, diabetes, and age-related change with some contributions from FILI and chronic diuretic therapy (3) CASTELAN (dyspnea on exertion): Code(s): R06.00 - Dyspnea, unspecified Status: Acute Assessment and Plan: initially thought to be secondary to #4 however, this seems less likely the case now (see #4) possibly related to OSH/OHS?? Pulmonary consulted for further assessment not requiring supplemental oxygen at this time (4) Acute on chronic heart failure with preserved ejection fraction: Code(s): I50.33 - Acute on chronic diastolic (congestive) heart failure Status: Acute Assessment and Plan: suspected based on presentation of SOB and evidence of fluid overload recent Echo noted: LVEF 60-65%, grade 1 diastolic dysfunction, mild biatrial enlargement, mild TR unclear if ongoing dyspnea is related to CHF at this time... almost 10L negative since admission diuretics were on hold due to #1 -- resumed on oral bumex repeat CT of chest noted... COPD/FILI playing a role with dyspnea(?) continue to monitor daily weights, urine output, and I/O's Cardiology recommendations noted plan to add Jardiance and spironolactone near discharge no plans for ischemic evaluation at this time (5) Edema: Code(s): R60.9 - Edema, unspecified Status: Acute Assessment and Plan: significant and chronic issue likely due to a combination of salt/fluid retention (from kidney disease), proteinuria, diastolic heart failure, FILI, and chronic lymphedema diuretics were on hold due to #1 -- back on bumex continue treatment of her FILI elevate legs as tolerated follow-up with lymphedema clinic as outpatient (6) Essential hypertension: Code(s): I10 - Essential (primary) hypertension Status: Chronic Assessment and Plan: reasonable control continue current medications follow trend of hemodynamics (7) Type 2 diabetes mellitus with hyperglycemia: Code(s): E11.65 - Type 2 diabetes mellitus with hyperglycemia Status: Chronic Assessment and Plan: follow accu-cheks glycemic control per hospitalists Will continue to follow. Subjective Date/time seen: 10/16/23 09:50 Interval history: Follow-up for acute kidney injury/acute renal failure on chronic kidney disease. Continues to endorse dyspnea on exertion with no real significant improvement in general; renal function remains relatively stable; bilateral lower extremity edema still present as well and does not appear any different; seems quite frustrated by her ongoing shortness of breath in general. Exam Narrative: General: elderly but WD/WN female in NAD Heart: normal S1 and S2; no rub Lungs: clear anteriorly; coarse and decreased at bases Abdomen: soft, nontender, nondistended, positive bowel sounds Extremities: no cyanosis or clubbing; 1 - 2+ edema Skin: warm and dry Objective Data Vital Signs Vital Signs: Vital Signs Temp Pulse Resp BP Pulse Ox O2
[2023-10-16 12:24] LABS: Glucose Point of Care 161 mg/dl (65-105)
[2023-10-16] MEDS: INSULIN ASPART (*BKC) 100 UNITS/ML 15 UNITS SUB-Q ×2 (12:41→17:24)
--- NOTE | 2023-10-16 14:19 | PM.IMPN ---
Progress Note: A&P Assessment and Plan (1) Lung infiltrate: Code(s): R91.8 - Other nonspecific abnormal finding of lung field Status: Acute (2) Type 2 diabetes mellitus with hyperglycemia: Code(s): E11.65 - Type 2 diabetes mellitus with hyperglycemia Status: Chronic (3) Essential hypertension: Code(s): I10 - Essential (primary) hypertension Status: Chronic (4) Chronic kidney disease, stage 3: Code(s): N18.3 - Chronic kidney disease, stage 3 (moderate) Status: Chronic (5) FILI (obstructive sleep apnea): Code(s): G47.33 - Obstructive sleep apnea (adult) (pediatric) Status: Acute (6) GERD (gastroesophageal reflux disease): Code(s): K21.9 - Gastro-esophageal reflux disease without esophagitis Status: Acute (7) COPD (chronic obstructive pulmonary disease): Code(s): J44.9 - Chronic obstructive pulmonary disease, unspecified Status: Acute (8) Insulin dependent type 2 diabetes mellitus: Code(s): E11.9 - Type 2 diabetes mellitus without complications; Z79.4 - longterm (current) use of insulin Status: Acute (9) Coronary artery disease: Code(s): I25.10 - Atherosclerotic heart disease of [place] coronary artery without angina pectoris Status: Acute (10) Morbid obesity with BMI of 45.0-49.9, adult: Code(s): E66.01 - Morbid (severe) obesity due to excess calories; Z68.42 - Body mass index [BMI] 45.0-49.9, adult Status: Acute Plan 73-year-old female with history of coronary artery disease [place] in December 2 needed 12 status post CABG hypothyroidism hyperlipidemia hypertension insulin-dependent type 2 diabetes-for edema CKD stage 3 congestive heart failure anemia requiring transfusion presented to the ED for chest pain and shortness of breath intermittently for the past 3 weeks. She also has diagnosis of FILI and a trial of CPAP. Stress test on 09/19/2023 reports it is revealed of blockage in 1 of her coronary arteries. She reported right-sided chest wall pain for the past 3 weeks intermittently. Sometimes the pain radiates down her bilateral arms. Associated shortness of breath and dry cough. She also reported lower extremity edema which he attributes to lymphedema. Worsening orthopnea and 20 lb weight gain in the past 3 weeks. She has been taking her Bumex as prescribed. She received DuoNeb in the ED with some improvement. Prior echocardiogram 02/16/2020 showed moderately increased LV wall thickness EF of 60-65% grade 2 diastolic dysfunction right atrial chamber mildly enlarged severe pulmonary hypertension with PA systolic pressure measuring 68 mm Hg. On ED evaluation she was hypertension is oxygenation was adequate. Laboratory evaluation showed normal WBC creatinine 1.6 BNP 1850 COVID RSV flu negative EKG with ST-T changes with no acute findings. Initial troponin within normal limits. Serial troponin remained negative. D-dimer elevated at 2.[address] was performed which showed no PE but showed mild pulmonary edema with small pleural effusions and small pulmonary nodules with interval changes in distribution which may be a component of pulmonary edema and or or may be an infection. She had mild wheezing on presented to the ED which improved with DuoNeb. She has been started on IV diuresis with Lasix IV b.i.d.. Suspected CHF exacerbation. This is been switched to Bumex IV renal function stable with diuresis. Negative balance. His creatinine has bumped up Bumex dose has been reduced by central office installer. Creatinine continues to worsen. Bumex on hold. Possible pneumonia she has also been restarted on Rocephin and azithromycin. This has been switched to oral cefdinir and azithromycin. She has been off antibiotics after completing antibiotic course. Echo with EF 60-65% moderate concentric increased left ventricular wall thickness grade 1 diastolic dysfunction. Needs blood pressure control add amlodipine. However reports dry mout
--- NOTE | 2023-10-16 14:44 | PCCCNOTE ---
On 10/16/23, the student, [Betty Newman], provided care and completed [facility] documentation on this patient. I have reviewed the student's documentation and agree with the findings.
[2023-10-16 17:21] LABS: Glucose Point of Care 166 mg/dl (65-105)
[2023-10-16] MEDS: BUMETANIDE 1 MG TABLET PO (17:23)
[2023-10-16] MEDS: FLUTICASONE/UMECLIDIN/VILANTER 100-62.5-25 MCG ELLIPTA 1 PUFF INHALATION (17:40)
[2023-10-16] MEDS: PANTOPRAZOLE 40 MG TABLET PO (21:01)
[2023-10-16] MEDS: ACETAMINOPHEN 325 MG TABLET 650 MG PO (21:04)
[2023-10-17] VITALS (10 sets, daily range): BP systolic 127–152; BP diastolic 51–89; PULSE 55–74; RESP 14–18; TEMP 36.5–36.6; O2SAT 96–100
[2023-10-17 00:46] LABS: Glucose Point of Care 203 mg/dl (65-105)
[2023-10-17 05:48] LABS: Basophils Percent Auto 0.4 % (0.2-1.2); Eosinophils Absolute Auto 0.2 K/mm3 (0-0.3); Eosinophils Percent Auto 2.2 % (0-4.4); Hemoglobin 9.2 g/dL (12.0-15.0); Immature Granulocyte Absolute 0.01 K/mm3 (0.00-0.031); Immature Granulocyte Percent A 0.1 % (0-0.5); Lymphocytes Absolute Auto 1.88 K/mm3 (0.9-3.2); Lymphocytes Percent Auto 27.7 % (18.3-44.2); Mean Corpuscular HGB Conc 31.7 g/dl (32-36); Mean Corpuscular Hemoglobin 30.6 pg (26-34); Mean Corpuscular Volume 96.3 fl (80-100); Monocytes Percent Auto 14.3 % (2.6-8.5); Neutrophils Absolute Auto 3.8 K/mm3 (1.3-6.7); Neutrophils Percent Auto 55.3 % (45.5-73.1); Platelet Count Result 163 k/mm3 (150-375); Red Blood Count 3.01 M/mm3 (4.2-5.4); Red Cell Distribution Width 15.8 % (11.5-14.5); White Blood Count 6.8 K/mm3 (4.5-10.0)
[2023-10-17 06:05] LABS: Alanine Aminotransferase 24 U/L (6-35); Albumin Level 3.3 g/dL (3.5-5.1); Alkaline Phosphatase 60 U/L (38-126); Anion Gap 2 mmol/L (4-12); Aspartate Amino Transferase 31 U/L (14-36); Bilirubin,Total 0.5 mg/dL (0.2-1.3); Blood Urea Nitrogen 28 mg/dL (7-17); Calcium 8.6 mg/dL (8.4-10.2); Carbon Dioxide 30 mmol/L (22-30); Chloride 108 mmol/L (98-107); Estimated CRCL calculation 34 ml/min; Estimated Glomerular Filt Rate 28; Glucose 133 mg/dL (65-110); Phosphorus 3.8 mg/dL (2.5-4.5); Potassium 3.6 mmol/L (3.4-5.0); Sodium 140 mmol/L (137-145)
[2023-10-17 07:53] LABS: Glucose Point of Care 134 mg/dl (65-105)
[2023-10-17] MEDS: FAMOTIDINE 20 MG TABLET 40 MG PO (08:53)
[2023-10-17] MEDS: ASPIRIN 81 MG CHEWABLE TABLET PO (08:53)
[2023-10-17] MEDS: ENOXAPARIN 40 MG/0.4 ML SYRINGE SUB-Q (08:54)
[2023-10-17] MEDS: BUMETANIDE 1 MG TABLET PO ×2 (08:54→17:38)
[2023-10-17] MEDS: EZETIMIBE 10 MG TABLET PO (08:54)
[2023-10-17] MEDS: SIMETHICONE 80 MG TAB.CHEW PO ×2 (08:54→20:58)
[2023-10-17] MEDS: METOPROLOL TARTRATE 25 MG TABLET PO ×2 (08:54→20:58)
[2023-10-17] MEDS: METOPROLOL TARTRATE 12.5 MG TABLET PO ×2 (08:54→20:59)
[2023-10-17] MEDS: CLOPIDOGREL BISULFATE 75 MG TABLET PO (08:54)
[2023-10-17] MEDS: polyethylene glycoL 3350 17 GM POWD.PACK PO (08:54)
[2023-10-17] MEDS: KETOROLAC 0.5% OP SOLN 5 ML BOTTLE 1 DROP RIGHT EYE ×3 (08:55→17:38)
[2023-10-17] MEDS: INSULIN ASPART (*BKC) 100 UNITS/ML 15 UNITS SUB-Q ×2 (08:56→12:50)
[2023-10-17] MEDS: ACETAMINOPHEN 325 MG TABLET 650 MG PO ×2 (09:01→21:21)
[2023-10-17] MEDS: guaiFENesin 12 HR 600 MG TABCR PO ×2 (09:01→20:58)
[2023-10-17] MEDS: FLUTICASONE/UMECLIDIN/VILANTER 100-62.5-25 MCG ELLIPTA 1 PUFF INHALATION (09:40)
--- NOTE | 2023-10-17 11:39 | PM.IMPN ---
Progress Note: A&P Assessment and Plan (1) Acute kidney injury superimposed on chronic kidney disease: Code(s): N17.9 - Acute kidney failure, unspecified; N18.9 - Chronic kidney disease, unspecified <Susana Wilburn - Last Filed: 10/17/23 14:49> Status: Acute <Caty Covington Student - Last Filed: 10/17/23 14:49> Assessment and Plan: Baseline Cr 1.6-1.8 range. Cr 1.6 on admission but climbed to 3.2 rellated to contrast, diuretics, ARB and underlying CKD Renal US showing no acute findings. Tolerated intermittent doses of Bumex Nephrology following and appreciate their input. Nuclear med renal scan ordered showing symmetric renal fxn with borderline delayed clearance. Likely due to contrast nephropathy in conjunction with IV diuretic therapy per nephrology [facility]. On a low potassium diet Cr better at 2.10 Continue oral Bumex 1mg Continue to monitor UOP, renal function and electrolytes <Caty Covington Student - Last Filed: 10/17/23 14:49> Baseline Cr 1.6-1.8 range. Cr 1.6 on admission but climbed to 3.2 related to contrast, diuretics, ARB and underlying CKD Renal US showing no acute findings. Tolerated intermittent doses of Bumex Nephrology following and appreciate their input. Nuclear med renal scan ordered showing symmetric renal fxn with borderline delayed clearance. Likely due to contrast nephropathy in conjunction with IV diuretic therapy per nephrology [facility]. On a low potassium diet Cr better at 2.10 Continue oral Bumex 1mg BID Continue to monitor UOP, renal function and electrolytes <Marcellus Dorantes MD - Last Filed: 10/17/23 18:58> (2) Acute on chronic heart failure with preserved ejection fraction: Code(s): I50.33 - Acute on chronic diastolic (congestive) heart failure <Susana Wilburn - Last Filed: 10/17/23 14:49> Status: Acute <Caty Covington Student - Last Filed: 10/17/23 14:49> Assessment and Plan: Suspected based on presentation of SOB and evidence of fluid overload Echo on 09/27 noted: LVEF 60-65%, grade 1 diastolic dysfunction, mild biatrial enlargement, mild TR Unclear if ongoing dyspnea is related to CHF at this time Almost 10L negative since admission Diuretics were on hold due to KEZIA -- resumed on oral bumex Repeat CT of chest on 10/12 noted no acute thoracic process FILI and/or COPD/asthma playing a role with dyspnea(?) Continue to monitor daily weights, urine output, and I/O's No plans for inpatient ischemic evaluation at this time Continue oral Bumex patient still complaining of dyspnea; oxygen saturation >92% in RA; this could be from known CAD vs deconditioning Added trelegy inhaler Continue PT/OT Okay to discharge from a medical standpoint if okay with consults <Caty Covington, Student - Last Filed: 10/17/23 14:49> Suspected based on presentation of SOB and evidence of fluid overload Echo on 09/27 noted: LVEF 60-65%, grade 1 diastolic dysfunction, mild biatrial enlargement, mild TR Unclear if ongoing dyspnea is related to CHF at this time Almost 10L negative since admission Diuretics were on hold due to KEZIA -- resumed on oral bumex Repeat CT of chest on 10/12 noted no acute thoracic process FILI and/or COPD/asthma playing a role with dyspnea(?) Continue to monitor daily weights, urine output, and I/O's No plans for inpatient ischemic evaluation at this time Continue oral Bumex patient still complaining of dyspnea; oxygen saturation >92% in RA; this could be from known CAD vs deconditioning Added trelegy inhaler Continue PT/OT Okay to discharge from a medical standpoint if okay with consults <Marcellus Dorantes MD - Last Filed: 10/17/23 18:58> (3) Pneumonia: Code(s): J18.9 - Pneumonia, unspecified organism <Caty Covington, Student - Last Filed: 10/17/23 14:49> Status: Acute <Caty Covington, Student - Last Filed: 10/17/23 14:49> Nelia
[2023-10-17 11:53] LABS: Glucose Point of Care 140 mg/dl (65-105)
--- NOTE | 2023-10-17 13:36 | PM.PNNEP ---
Progress Note: A&P Assessment and Plan (1) KEZIA (acute kidney injury): Code(s): N17.9 - Acute kidney failure, unspecified Status: Acute Assessment and Plan: resolved (if not resolving) suspicion falls on contrast nephropathy in conjunction with IV diuretic therapy evaluation to date noted: urine electrolytes pre-renal (by Fe[facility]) renal ultrasound unremarkable CPK only mildly elevated - not likely to have affected kidney function moderate proteinuria renal scan with uptake but delayed clearance suggestive of ATN back to oral bumex follow repeat labs and UOP (2) Chronic kidney disease, stage 3b: Code(s): N18.32 - Chronic kidney disease, stage 3b Status: Chronic Assessment and Plan: baseline creatinine runs in the 2ish range (but has fluctuated to extremes...) this translates to a GFR in the low 30s range etiology is due to hypertension, diabetes, and age-related change with some contributions from FILI and chronic diuretic therapy (3) CASTELAN (dyspnea on exertion): Code(s): R06.00 - Dyspnea, unspecified Status: Acute Assessment and Plan: initially thought to be secondary to #4 however, this seems less likely the case now (see #4) possibly related to OSH/OHS?? CT of chest x 2 noted V/Q low probability of PE Pulmonary consulted for further assessment not requiring supplemental oxygen at this time (4) Acute on chronic heart failure with preserved ejection fraction: Code(s): I50.33 - Acute on chronic diastolic (congestive) heart failure Status: Acute Assessment and Plan: suspected based on presentation of SOB and evidence of fluid overload recent Echo noted: LVEF 60-65%, grade 1 diastolic dysfunction, mild biatrial enlargement, mild TR unclear if ongoing dyspnea is related to CHF at this time... almost 10L negative since admission diuretics were on hold due to #1 -- resumed on oral bumex repeat CT of chest noted... COPD/FILI playing a role with dyspnea(?) continue to monitor daily weights, urine output, and I/O's Cardiology recommendations noted plan to add Jardiance and spironolactone near discharge no plans for ischemic evaluation at this time (5) Edema: Code(s): R60.9 - Edema, unspecified Status: Acute Assessment and Plan: significant and chronic issue likely due to a combination of salt/fluid retention (from kidney disease), proteinuria, diastolic heart failure, FILI, and chronic lymphedema diuretics were on hold due to #1 -- back on bumex continue treatment of her FILI elevate legs as tolerated follow-up with lymphedema clinic as outpatient (6) Essential hypertension: Code(s): I10 - Essential (primary) hypertension Status: Chronic Assessment and Plan: reasonable control continue current medications follow trend of hemodynamics (7) Type 2 diabetes mellitus with hyperglycemia: Code(s): E11.65 - Type 2 diabetes mellitus with hyperglycemia Status: Chronic Assessment and Plan: follow accu-cheks glycemic control per hospitalists Will continue to follow. Subjective Date/time seen: 10/17/23 13:36 Interval history: Follow-up for acute kidney injury/acute renal failure on chronic kidney disease. Renal function remains relatively stable at this time; still voiced complaint of dyspnea on exertion as well as pleuric chest pain; a bit frustrated by the lack of improvement in her breathing in general. Exam Narrative: General: elderly but WD/WN female in NAD Heart: normal S1 and S2; no rub Lungs: clear anteriorly; coarse and decreased at bases Abdomen: soft, nontender, nondistended, positive bowel sounds Extremities: no cyanosis or clubbing; 1 - 2+ edema Skin: warm and dry Objective Data Vital Signs Vital Signs: Vital Signs Temp Pulse Resp BP Pulse Ox O2 Del Method 10/17/23 08:50 Room Air
--- NOTE | 2023-10-17 13:36 | P.PNNP_ITS ---
Progress Note: A&P Assessment and Plan (1) KEZIA (acute kidney injury): Code(s): N17.9 - Acute kidney failure, unspecified Status: Acute Assessment and Plan: * resolved (if not resolving) * suspicion falls on contrast nephropathy in conjunction with IV diuretic therapy * evaluation to date noted: * urine electrolytes pre-renal (by FeNA) * renal ultrasound unremarkable * CPK only mildly elevated - not likely to have affected kidney function * moderate proteinuria * renal scan with uptake but delayed clearance suggestive of ATN * back to oral bumex * follow repeat labs and UOP (2) Chronic kidney disease, stage 3b: Code(s): N18.32 - Chronic kidney disease, stage 3b Status: Chronic Assessment and Plan: * baseline creatinine runs in the 2ish range (but has fluctuated to extremes...) * this translates to a GFR in the low 30s range * etiology is due to hypertension, diabetes, and age-related change with some contributions from FILI and chronic diuretic therapy (3) CASTELAN (dyspnea on exertion): Code(s): R06.00 - Dyspnea, unspecified Status: Acute Assessment and Plan: * initially thought to be secondary to #4 * however, this seems less likely the case now (see #4) * possibly related to OSH/OHS?? * CT of chest x 2 noted * V/Q low probability of PE * Pulmonary consulted for further assessment * not requiring supplemental oxygen at this time (4) Acute on chronic heart failure with preserved ejection fraction: Code(s): I50.33 - Acute on chronic diastolic (congestive) heart failure Status: Acute Assessment and Plan: * suspected based on presentation of SOB and evidence of fluid overload * recent Echo noted: LVEF 60-65%, grade 1 diastolic dysfunction, mild biatrial enlargement, mild TR * unclear if ongoing dyspnea is related to CHF at this time... * almost 10L negative since admission * diuretics were on hold due to #1 -- resumed on oral bumex * repeat CT of chest noted... * COPD/FILI playing a role with dyspnea(?) * continue to monitor daily weights, urine output, and I/O's * Cardiology recommendations noted * plan to add Jardiance and spironolactone near discharge * no plans for ischemic evaluation at this time (5) Edema: Code(s): R60.9 - Edema, unspecified Status: Acute Assessment and Plan: * significant and chronic issue * likely due to a combination of salt/fluid retention (from kidney disease), proteinuria, diastolic heart failure, FILI, and chronic lymphedema * diuretics were on hold due to #1 -- back on bumex * continue treatment of her FILI * elevate legs as tolerated * follow-up with lymphedema clinic as outpatient (6) Essential hypertension: Code(s): I10 - Essential (primary) hypertension Status: Chronic Assessment and Plan: * reasonable control * continue current medications * follow trend of hemodynamics (7) Type 2 diabetes mellitus with hyperglycemia: Code(s): E11.65 - Type 2 diabetes mellitus with hyperglycemia Status: Chronic Assessment and Plan: * follow accu-cheks * glycemic control per hospitalists Will continue to follow. Subjective Date/time seen: 10/17/23 13:36 Interval history: Follow-up for acute kidney injury/acute renal failure on chronic kidney disease. Renal function remains relatively stable at this time; still voiced complaint of dyspnea on exertion as well as pleuric chest pain; a bit frustrated by the lack of improvement in her tiffany
[2023-10-17 16:54] LABS: Glucose Point of Care 55 mg/dl (65-105)
[2023-10-17 17:25] LABS: Glucose Point of Care 78 mg/dl (65-105)
--- NOTE | 2023-10-17 18:34 | PM.CNPUL ---
Assessment and Plan Assessment and plan (1) CASTELAN (dyspnea on exertion): Code(s): R06.00 - Dyspnea, unspecified Status: Acute Assessment and Plan: The patient has episodic dyspnea, does not appear to have actual pneumonia this admission. PFTs do not confirm obstructive airways disease. She does have significant pulmonary hypertension, cause not clear. Most pulmonary hypertension is secondary to lung disease or heart disease. Prior workup showed normal ANIA several times, likely she does not have collagen vascular disease. See pulmonary hypertension section below. She does not feel that she needs to go to rehab, says that she is capable of walking and doing activities of daily living. (2) Obstructive sleep apnea: Onset Date: ~04/2020 Code(s): G47.33 - Obstructive sleep apnea (adult) (pediatric) Status: Acute Assessment and Plan: Most recent sleep study was June 27, 2023 a split night study with an AHI of 15 0.3 and desaturation 84%. She has not been set up with PAP yet. The final pressure during this setting was 10 cm but here on APAP with pressures increased to 8-18 last night she did feel better. (3) Severe pulmonary arterial systolic hypertension: Onset Date: ~01/2020 Code(s): I27.21 - Secondary pulmonary arterial hypertension Status: Acute Assessment and Plan: She has longstanding pulmonary hypertension, type is not certain.She does not have Group 3, PHTN due to lung disease. She has never required supplemental O2 at home. Group 1; primary pulm HTN; drugs? toxins? HIV, portopulmonary hypertension?schistosomiasis Has never used diet pills, no history of IV drug use, no other used of the drugs listed. I did not check HIV. she does not have parasitic infeciton, eosinophils always normal Group 2- heart; She does have congestive heart failure with preserved ejection fraction; no valvular or congenital heart disease. Group 3; lung; no obstruction, no restriction based on PFTs in 2020; she does not have hypoxemia; main issue on her PFT is low DLCO which is seen in pulmonary hypertension. She does not have hypoventilation. Her serum bicarb is mildly elevated this admission around 33-36 with diuretic use. Group 4: she does not have chronic thromboembolic disease, her CTA is negative. Group 5- mixed group; she has chronic renal disease however not on dialysis; does not have fibrosing mediastinitis on chest CT She has low DLCO on PFT which is due to her pulm HTN. Plan She is a complicated patient, has multiple different organs not optimally functioning, and control of blood pressure may be helpful. I discussed with Dr. Pulliam. I will follow her closely in the office after discharge. Use spacer with inhalers here and at home; medications are more effective using spacer. stop Trelegy; never-smoker; last PFT was 04/15/2020, normal FEV1/FVC, no response to bronchodilator, air trapping, moderate diffusion impairment which overcorrects for alveolar volume; this is not emphysema. Not sure she has obstructive lung disease, therefore bronchodilators may not be adding anything. With Trelegy, she c/o burning, feeling as if it is too strong. increase range on APAP 8-18 cm; she feels that the current 5-15 cm is not enough pressure, has a sensation of smothering. Had final pressure of CPAP 10 cm on split night study however she was in a recliner, reducing severity of FILI. She is in a bed here, still sleeping with HOB elevated. Set home device APAP with higher pressures as the CPAP 10 may not be enough pressure. her episodic shortness of breath is not due to CHF per cardiology; not clear what the root cause is. This may be due to her pulmonary hypertension. Doubt this due to sle
[2023-10-17 18:38] LABS: Glucose Point of Care 107 mg/dl (65-105)
--- NOTE | 2023-10-17 20:42 | PC.NURSE ---
CONTACTED HOSPITALIST ABOUT 2100 [address]ANT[address] DOSE. PT BS 110 THIS EVENING AND WAS CRITICAL AT 55 AROUND DINNER TIME. HOSPITALIST INSTRUCTED ME TO HOLD DOSE.
[2023-10-17] MEDS: PANTOPRAZOLE 40 MG TABLET PO (20:59)
[2023-10-18] VITALS (11 sets, daily range): BP systolic 124–180; BP diastolic 51–73; PULSE 60–68; RESP 14–20; TEMP 36.6–36.9; O2SAT 96–99
[2023-10-18 03:31] LABS: Glucose Point of Care 110 mg/dl (65-105)
[2023-10-18 03:31] LABS: Glucose Point of Care 154 mg/dl (65-105)
[2023-10-18 06:46] LABS: Alanine Aminotransferase 21 U/L (6-35); Albumin Level 3.2 g/dL (3.5-5.1); Alkaline Phosphatase 59 U/L (38-126); Anion Gap 4 mmol/L (4-12); Aspartate Amino Transferase 28 U/L (14-36); Bilirubin,Total 0.5 mg/dL (0.2-1.3); Blood Urea Nitrogen 30 mg/dL (7-17); Calcium 8.5 mg/dL (8.4-10.2); Carbon Dioxide 28 mmol/L (22-30); Chloride 107 mmol/L (98-107); Estimated CRCL calculation 28 ml/min; Estimated Glomerular Filt Rate 24; Glucose 153 mg/dL (65-110); Magnesium 1.9 mg/dL (1.6-2.3); Phosphorus 3.7 mg/dL (2.5-4.5); Potassium 3.7 mmol/L (3.4-5.0); Sodium 139 mmol/L (137-145)
[2023-10-18 08:07] LABS: Glucose Point of Care 158 mg/dl (65-105)
[2023-10-18 08:49] LABS: Basophils Percent Auto 0.7 % (0.2-1.2); Eosinophils Absolute Auto 0.2 K/mm3 (0-0.3); Eosinophils Percent Auto 2.6 % (0-4.4); Hematocrit 29.8 % (37.0-47.0); Hemoglobin 9.1 g/dL (12.0-15.0); Immature Granulocyte Absolute 0.02 K/mm3 (0.00-0.031); Immature Granulocyte Percent A 0.3 % (0-0.5); Immature Platelet Fraction Pct 10.2 % (0.9-11.2); Lymphocytes Absolute Auto 1.56 K/mm3 (0.9-3.2); Lymphocytes Percent Auto 25.7 % (18.3-44.2); Mean Corpuscular HGB Conc 30.5 g/dl (32-36); Mean Corpuscular Hemoglobin 29.7 pg (26-34); Mean Corpuscular Volume 97.4 fl (80-100); Mean Platelet Volume 13.5 fl (7.4-10.4); Monocytes Percent Auto 16.1 % (2.6-8.5); Neutrophils Absolute Auto 3.3 K/mm3 (1.3-6.7); Neutrophils Percent Auto 54.6 % (45.5-73.1); Platelet Count Result 154 k/mm3 (150-375); Red Blood Count 3.06 M/mm3 (4.2-5.4); White Blood Count 6.1 K/mm3 (4.5-10.0)
[2023-10-18] MEDS: CLOPIDOGREL BISULFATE 75 MG TABLET PO (08:51)
[2023-10-18] MEDS: BUMETANIDE 1 MG TABLET PO ×2 (08:51→17:32)
[2023-10-18] MEDS: guaiFENesin 12 HR 600 MG TABCR PO ×2 (08:51→20:22)
[2023-10-18] MEDS: FAMOTIDINE 20 MG TABLET 40 MG PO (08:51)
[2023-10-18] MEDS: EZETIMIBE 10 MG TABLET PO (08:51)
[2023-10-18] MEDS: ASPIRIN 81 MG CHEWABLE TABLET PO (08:51)
[2023-10-18] MEDS: SIMETHICONE 80 MG TAB.CHEW PO ×4 (08:51→20:22)
[2023-10-18] MEDS: ENOXAPARIN 40 MG/0.4 ML SYRINGE SUB-Q (08:52)
[2023-10-18] MEDS: METOPROLOL TARTRATE 12.5 MG TABLET PO ×2 (09:04→20:23)
[2023-10-18] MEDS: KETOROLAC 0.5% OP SOLN 5 ML BOTTLE 1 DROP RIGHT EYE ×3 (09:04→17:32)
[2023-10-18] MEDS: METOPROLOL TARTRATE 25 MG TABLET PO ×2 (09:04→20:23)
--- NOTE | 2023-10-18 10:42 | PM.IMPN ---
Progress Note: A&P Assessment and Plan (1) CASTELAN (dyspnea on exertion): Code(s): R06.00 - Dyspnea, unspecified <Caty Covington Student - Last Filed: 10/18/23 13:46> Status: Acute <Caty Covington Student - Last Filed: 10/18/23 13:46> Assessment and Plan: Patient continues to complain about SOB mostly with exertion. Initially felt related to PNA (has completed treatment) and/or CHF (felt to be close to dry weight). Further workup has included: -- Echo with EF 60-65%, moderate concentric LV wall thickness and Grade I diastolic dysfunction and minimal valvular dz -- CTA chest negative for PE. Recent VQ scan was low probability. Venous doppler negative for DVT -- Recent noncontrast CT chest showing no acute process. -- She has been compliant with Auto-PAP -- Trelegy inhaler started but causing symptoms. Not on O2 here. Worse with walking. Pulmonary consulted and appreciate their input. Patient has known pulmonary HTN (PASP 45 this admission). Amyloid considered but has had negative UIF, SIF and normal light chains. E-D can have valvular disease, CAD and Ao dilation Adjusting her auto-PAP. Diltiazem started for her pulmonary HTN and for proteinuria. Trelegy stopped Recommended SNF but she wanting to go home at discharge <Marcellus Dorantes MD - Last Filed: 10/18/23 18:21> (2) Acute kidney injury superimposed on chronic kidney disease: Code(s): N17.9 - Acute kidney failure, unspecified; N18.9 - Chronic kidney disease, unspecified <Caty Covington, Student - Last Filed: 10/18/23 13:46> Status: Acute <Caty Covington Student - Last Filed: 10/18/23 13:46> Assessment and Plan: Baseline Cr 1.6-1.8 range. Cr 1.6 on admission but climbed to 3.2 related to contrast, diuretics, ARB and underlying CKD Renal US showing no acute findings. Tolerated intermittent doses of Bumex Nephrology following and appreciate their input. Nuclear med renal scan ordered showing symmetric renal fxn with borderline delayed clearance. Likely due to contrast nephropathy in conjunction with IV diuretic therapy [facility]. On a low potassium diet Cr worsened today 10/17; 2.10 --> 2.40 Continue oral Bumex 1mg BID Continue to monitor UOP, renal function and electrolytes <Caty Covington Student - Last Filed: 10/18/23 13:46> Baseline Cr 1.6-1.8 range. Cr 1.6 on admission but climbed to 3.2 related to contrast, diuretics, ARB and underlying CKD Renal US showing no acute findings. Tolerated intermittent doses of Bumex Nephrology following and appreciate their input. Nuclear med renal scan ordered showing symmetric renal fxn with borderline delayed clearance. Likely due to contrast nephropathy in conjunction with IV diuretic therapy per nephrology [facility]. On a low potassium diet Cr worsened today 10/17; 2.10 --> 2.40 Remains on oral Bumex 1mg BID Continue to monitor UOP, renal function and electrolytes <Marcellus Dorantes MD - Last Filed: 10/18/23 18:21> (3) Acute on chronic heart failure with preserved ejection fraction: Code(s): I50.33 - Acute on chronic diastolic (congestive) heart failure <Caty Covington Student - Last Filed: 10/18/23 13:46> Status: Acute <Caty Covington Student - Last Filed: 10/18/23 13:46> Assessment and Plan: Suspected based on presentation of SOB and evidence of fluid overload Echo on 09/27 noted: LVEF 60-65%, grade 1 diastolic dysfunction, mild biatrial enlargement, mild TR Unclear if ongoing dyspnea is related to CHF at this time Almost 10L negative since admission Diuretics were on hold due to KEZIA -- resumed on oral bumex Repeat CT of chest on 10/12 noted no acute thoracic process FILI and/or COPD/asthma playing a role with dyspnea(?) Continue to monitor daily weights, urine output, and I/O's No plans for inpatient ischemic evaluation at this time Continue oral Bumex patient still complaining of
--- NOTE | 2023-10-18 11:29 | PCNWS ---
Weekly nutritional screen. Patient is tolerating current diet, Heart healthy renal diet, with fluid restriction 1500 ml/day. Complain of poor appetite but charted intakes 50-100% the last 48 hours. No weight loss reported. No nutritional needs at this time.
[2023-10-18 11:52] LABS: Glucose Point of Care 157 mg/dl (65-105)
--- NOTE | 2023-10-18 12:01 | P.PNNP_ITS ---
Progress Note: A&P Assessment and Plan (1) KEZIA (acute kidney injury): Code(s): N17.9 - Acute kidney failure, unspecified Status: Acute Assessment and Plan: * Creatinine peaked at around 3. It has come down to the low 2s. There is still some variation from day-to-day. It peter from 2 yesterday to 2.4 today. As an outpatient her creatinine had varied from 1.6-2.3. * suspicion falls on contrast nephropathy in conjunction with IV diuretic therapy * The effects of the contrast on her kidneys should be long gone by now. * evaluation to date noted: * urine electrolytes pre-renal (by FeNA) * renal ultrasound unremarkable * CPK only mildly elevated - not likely to have affected kidney function * moderate proteinuria * renal scan with uptake but delayed clearance suggestive of ATN * Patient is getting oral Bumex. This started a couple of days ago. She wonders whether the higher creatinine today is caused by the Bumex she had the last couple of days. We had a long discussion. She is uncomfortable with her breathing and also with her swelling. She has gained some weight since admission although the weights have gone up and down. If we do not give her the Bumex then swelling might continue to worsen. If we do give her Bumex and then her creatinine might rise. So all we can do is try to give as much of the diuretic without making her creatinine go up. Otherwise her swelling will continue to worsen. * follow repeat labs and UOP (2) Chronic kidney disease, stage 3b: Code(s): N18.32 - Chronic kidney disease, stage 3b Status: Chronic Assessment and Plan: * baseline creatinine runs in the 2ish range (but has fluctuated to extremes...) * this translates to a GFR in the low 30s range * etiology is due to hypertension, diabetes, and age-related change with some contributions from FILI and chronic diuretic therapy (3) CASTELAN (dyspnea on exertion): Code(s): R06.00 - Dyspnea, unspecified Status: Acute Assessment and Plan: * initially thought to be secondary to #4 * however, this seems less likely the case now (see #4) * possibly related to OSH/OHS?? * CT of chest x 2 noted * V/Q low probability of PE * Pulmonary consulted for further assessment * not requiring supplemental oxygen at this time * Dr Johnson is seeing the patient. He is looking into what might be causing her shortness breath. Long discussion with her. (4) Acute on chronic heart failure with preserved ejection fraction: Code(s): I50.33 - Acute on chronic diastolic (congestive) heart failure Status: Acute Assessment and Plan: * suspected based on presentation of SOB and evidence of fluid overload * recent Echo noted: LVEF 60-65%, grade 1 diastolic dysfunction, mild biatrial enlargement, mild TR * unclear if ongoing dyspnea is related to CHF at this time... * almost 10L negative since admission. Unfortunately her weights have not reflect that. I am not sure if the intake/output is accurate but also with the variability in her weights these may not be accurate either. Overall the patient does not feel like she has improved since admission. * diuretics were on hold due to #1 -- resumed on oral bumex * repeat CT of chest noted... * COPD/FILI playing a role with dyspnea(?) * continue to monitor daily weights, urine output, and I/O's * Cardiology recommendations noted * plan to add Jardiance and spironolactone near discharge * no plans for ischemic evaluation at this time (5) Edema: Code(s): R60.9 - Edema, unspecified Status: Acute Assessm
--- NOTE | 2023-10-18 12:01 | PM.PNNEP ---
Progress Note: A&P Assessment and Plan (1) KEZIA (acute kidney injury): Code(s): N17.9 - Acute kidney failure, unspecified Status: Acute Assessment and Plan: Creatinine peaked at around 3. It has come down to the low 2s. There is still some variation from day-to-day. It peter from 2 yesterday to 2.4 today. As an outpatient her creatinine had varied from 1.6-2.3. suspicion falls on contrast nephropathy in conjunction with IV diuretic therapy The effects of the contrast on her kidneys should be long gone by now. evaluation to date noted: urine electrolytes pre-renal (by FeNA) renal ultrasound unremarkable CPK only mildly elevated - not likely to have affected kidney function moderate proteinuria renal scan with uptake but delayed clearance suggestive of ATN Patient is getting oral Bumex. This started a couple of days ago. She wonders whether the higher creatinine today is caused by the Bumex she had the last couple of days. We had a long discussion. She is uncomfortable with her breathing and also with her swelling. She has gained some weight since admission although the weights have gone up and down. If we do not give her the Bumex then swelling might continue to worsen. If we do give her Bumex and then her creatinine might rise. So all we can do is try to give as much of the diuretic without making her creatinine go up. Otherwise her swelling will continue to worsen. follow repeat labs and UOP (2) Chronic kidney disease, stage 3b: Code(s): N18.32 - Chronic kidney disease, stage 3b Status: Chronic Assessment and Plan: baseline creatinine runs in the 2ish range (but has fluctuated to extremes...) this translates to a GFR in the low 30s range etiology is due to hypertension, diabetes, and age-related change with some contributions from FILI and chronic diuretic therapy (3) CASTELAN (dyspnea on exertion): Code(s): R06.00 - Dyspnea, unspecified Status: Acute Assessment and Plan: initially thought to be secondary to #4 however, this seems less likely the case now (see #4) possibly related to OSH/OHS?? CT of chest x 2 noted V/Q low probability of PE Pulmonary consulted for further assessment not requiring supplemental oxygen at this time Dr Johnson is seeing the patient. He is looking into what might be causing her shortness breath. Long discussion with her. (4) Acute on chronic heart failure with preserved ejection fraction: Code(s): I50.33 - Acute on chronic diastolic (congestive) heart failure Status: Acute Assessment and Plan: suspected based on presentation of SOB and evidence of fluid overload recent Echo noted: LVEF 60-65%, grade 1 diastolic dysfunction, mild biatrial enlargement, mild TR unclear if ongoing dyspnea is related to CHF at this time... almost 10L negative since admission. Unfortunately her weights have not reflect that. I am not sure if the intake/output is accurate but also with the variability in her weights these may not be accurate either. Overall the patient does not feel like she has improved since admission. diuretics were on hold due to #1 -- resumed on oral bumex repeat CT of chest noted... COPD/FILI playing a role with dyspnea(?) continue to monitor daily weights, urine output, and I/O's Cardiology recommendations noted plan to add Jardiance and spironolactone near discharge no plans for ischemic evaluation at this time (5) Edema: Code(s): R60.9 - Edema, unspecified Status: Acute Assessment and Plan: significant and chronic issue likely due to a combination of salt/fluid retention (from kidney disease), proteinuria, diastolic heart failure, FILI, and chronic lymphedema It is difficult to treat this. Diuretics might help but they also might make her creatinine rise. The only thing that could help both would be dialysis but the patient does not need that now. Will continue Bume
[2023-10-18] MEDS: dilTIAZem HCL CD 120 MG CAP.24HR PO (12:57)
--- NOTE | 2023-10-18 14:02 | PCCCNOTE ---
On 10/18/23, the student, Betty Newman, provided care and completed [facility] documentation on this patient. I have reviewed the student's documentation and agree with the findings.
[2023-10-18 16:55] LABS: Glucose Point of Care 261 mg/dl (65-105)
[2023-10-18] MEDS: INSULIN ASPART (*BKC) 100 UNITS/ML 8 UNITS SUB-Q (17:32)
[2023-10-18] MEDS: polyethylene glycoL 3350 17 GM POWD.PACK PO (17:32)
[2023-10-18] MEDS: PANTOPRAZOLE 40 MG TABLET PO (20:23)
[2023-10-18] MEDS: ALBUTEROL SULFATE NEB 2.5 MG/3 ML INH INHALATION (20:24)
[2023-10-18 21:37] LABS: Glucose Point of Care 165 mg/dl (65-105)
[2023-10-19 05:41] LABS: Hematocrit 28.9 % (37.0-47.0); Hemoglobin 9.1 g/dL (12.0-15.0); Mean Corpuscular HGB Conc 31.5 g/dl (32-36); Mean Corpuscular Hemoglobin 30.4 pg (26-34); Mean Corpuscular Volume 96.7 fl (80-100); Mean Platelet Volume 13.4 fl (7.4-10.4); Platelet Count Result 178 k/mm3 (150-375); Red Blood Count 2.99 M/mm3 (4.2-5.4); Red Cell Distribution Width 15.5 % (11.5-14.5); White Blood Count 6.3 K/mm3 (4.5-10.0)
[2023-10-19 05:42] LABS: Albumin Level 3.3 g/dL (3.5-5.1); Anion Gap -1 mmol/L (4-12); Blood Urea Nitrogen 29 mg/dL (7-17); Calcium 8.7 mg/dL (8.4-10.2); Carbon Dioxide 31 mmol/L (22-30); Chloride 107 mmol/L (98-107); Estimated CRCL calculation 31 ml/min; Estimated Glomerular Filt Rate 26; Glucose 231 mg/dL (65-110); Phosphorus 3.7 mg/dL (2.5-4.5); Potassium 3.6 mmol/L (3.4-5.0); Sodium 137 mmol/L (137-145)
[2023-10-19 08:03] VITALS: O2SAT 96
--- NOTE | 2023-10-19 08:35 | P.PNNP_ITS ---
Progress Note: A&P Assessment and Plan (1) KEZIA (acute kidney injury): Code(s): N17.9 - Acute kidney failure, unspecified Status: Acute Assessment and Plan: * Creatinine in 202 was in the mid 1s, 2020 it was in the high 1s, and 2020 to it was 1.8-2 and this year it has been ranging 1.8-2.2. * Her creatinine this admission peter to 3 after contrast but is back down to 2.2 now. * The patient is getting diuretics now to treat her edema. * Patient is getting oral Bumex. The creatinine initially peter to 2.4 but is back down to 2.2 now. * Will continue Bumex. * Sodium level is normal so I think we can increase fluid intake. (2) Chronic kidney disease, stage 3b: Code(s): N18.32 - Chronic kidney disease, stage 3b Status: Chronic Assessment and Plan: * baseline creatinine runs in the 2ish range (but has fluctuated to extremes...) * this translates to a GFR in the low 30s range * etiology is due to hypertension, diabetes, and age-related change with some contributions from FILI and chronic diuretic therapy (3) CASTELAN (dyspnea on exertion): Code(s): R06.00 - Dyspnea, unspecified Status: Acute Assessment and Plan: * initially thought to be secondary to #4 * however, this seems less likely the case now (see #4) * possibly related to OSH/OHS?? * CT of chest x 2 noted * V/Q low probability of PE * Pulmonary consulted for further assessment * not requiring supplemental oxygen at this time * Dr Johnson is seeing the patient. * Trying to treat the treatables. She is on Bumex. She is getting CPAP. Adjusting blood pressure meds to bring her blood pressure down. There may be some deconditioning. I encouraged patient to continue to get out of bed every day. (4) Acute on chronic heart failure with preserved ejection fraction: Code(s): I50.33 - Acute on chronic diastolic (congestive) heart failure Status: Acute Assessment and Plan: * suspected based on presentation of SOB and evidence of fluid overload * recent Echo noted: LVEF 60-65%, grade 1 diastolic dysfunction, mild biatrial enlargement, mild TR * unclear if ongoing dyspnea is related to CHF at this time... * almost 10L negative since admission. Unfortunately her weights have not reflect that. I am not sure if the intake/output is accurate but also with the variability in her weights these may not be accurate either. Overall the patient does not feel like she has improved since admission. * diuretics were on hold due to #1 -- resumed on oral bumex * repeat CT of chest noted... * COPD/FILI playing a role with dyspnea(?) * continue to monitor daily weights, urine output, and I/O's * Cardiology recommendations noted * plan to add Jardiance and spironolactone near discharge * no plans for ischemic evaluation at this time (5) Edema: Code(s): R60.9 - Edema, unspecified Status: Acute Assessment and Plan: * significant and chronic issue * Continue Bumex as tolerated by the creatinine (6) Essential hypertension: Code(s): I10 - Essential (primary) hypertension Status: Chronic Assessment and Plan: * Her systolic blood pressure is high. * She is on metoprolol and diltiazem. * Reconsider or bizarre 10 if the creatinine remains stable over the weekend (7) Type 2 diabetes mellitus with hyperglycemia: Code(s): E11.65 - Type 2 diabetes mellitus with hyperglycemia Status: Chronic Assessment and Plan: * follow accu-cheks * glycemic control per hospitalists Subjective D
--- NOTE | 2023-10-19 08:35 | PM.PNNEP ---
Progress Note: A&P Assessment and Plan (1) KEZIA (acute kidney injury): Code(s): N17.9 - Acute kidney failure, unspecified Status: Acute Assessment and Plan: Creatinine in 202 was in the mid 1s, 2020 it was in the high 1s, and 2019 to it was 1.8-2 and this year it has been ranging 1.8-2.2. Her creatinine this admission peter to 3 after contrast but is back down to 2.2 now. The patient is getting diuretics now to treat her edema. Patient is getting oral Bumex. The creatinine initially peter to 2.4 but is back down to 2.2 now. Will continue Bumex. Sodium level is normal so I think we can increase fluid intake. (2) Chronic kidney disease, stage 3b: Code(s): N18.32 - Chronic kidney disease, stage 3b Status: Chronic Assessment and Plan: baseline creatinine runs in the 2ish range (but has fluctuated to extremes...) this translates to a GFR in the low 30s range etiology is due to hypertension, diabetes, and age-related change with some contributions from FILI and chronic diuretic therapy (3) CASTELAN (dyspnea on exertion): Code(s): R06.00 - Dyspnea, unspecified Status: Acute Assessment and Plan: initially thought to be secondary to #4 however, this seems less likely the case now (see #4) possibly related to OSH/OHS?? CT of chest x 2 noted V/Q low probability of PE Pulmonary consulted for further assessment not requiring supplemental oxygen at this time Dr Johnson is seeing the patient. Trying to treat the treatables. She is on Bumex. She is getting CPAP. Adjusting blood pressure meds to bring her blood pressure down. There may be some deconditioning. I encouraged patient to continue to get out of bed every day. (4) Acute on chronic heart failure with preserved ejection fraction: Code(s): I50.33 - Acute on chronic diastolic (congestive) heart failure Status: Acute Assessment and Plan: suspected based on presentation of SOB and evidence of fluid overload recent Echo noted: LVEF 60-65%, grade 1 diastolic dysfunction, mild biatrial enlargement, mild TR unclear if ongoing dyspnea is related to CHF at this time... almost 10L negative since admission. Unfortunately her weights have not reflect that. I am not sure if the intake/output is accurate but also with the variability in her weights these may not be accurate either. Overall the patient does not feel like she has improved since admission. diuretics were on hold due to #1 -- resumed on oral bumex repeat CT of chest noted... COPD/FILI playing a role with dyspnea(?) continue to monitor daily weights, urine output, and I/O's Cardiology recommendations noted plan to add Jardiance and spironolactone near discharge no plans for ischemic evaluation at this time (5) Edema: Code(s): R60.9 - Edema, unspecified Status: Acute Assessment and Plan: significant and chronic issue Continue Bumex as tolerated by the creatinine (6) Essential hypertension: Code(s): I10 - Essential (primary) hypertension Status: Chronic Assessment and Plan: Her systolic blood pressure is high. She is on metoprolol and diltiazem. Reconsider or bizarre 10 if the creatinine remains stable over the weekend (7) Type 2 diabetes mellitus with hyperglycemia: Code(s): E11.65 - Type 2 diabetes mellitus with hyperglycemia Status: Chronic Assessment and Plan: follow accu-cheks glycemic control per hospitalists Subjective Date/time seen: 10/19/23 08:35 Interval history: Patient is feeling about the same. She still short of breath. Not much of an appetite. Her urine has some bubbles Exam Narrative: General: elderly but WD/WN female in NAD Heart: normal S1 and S2; no rub or gallop Lungs: clear anteriorly; coarse and decreased at bases Abdomen: soft, nontender, nondistended, positive bowel sounds Extremities: 1 - 2+ edema
[2023-10-19 08:41] LABS: Glucose Point of Care 204 mg/dl (65-105)
[2023-10-19] MEDS: INSULIN ASPART (*BKC) 100 UNITS/ML 8 UNITS SUB-Q ×2 (08:51→12:14)
[2023-10-19] MEDS: ACETAMINOPHEN 325 MG TABLET 650 MG PO ×2 (08:55→21:21)
[2023-10-19] MEDS: FAMOTIDINE 20 MG TABLET 40 MG PO (08:58)
[2023-10-19] MEDS: CLOPIDOGREL BISULFATE 75 MG TABLET PO (08:58)
[2023-10-19] MEDS: BUMETANIDE 1 MG TABLET PO ×2 (08:58→17:19)
[2023-10-19] MEDS: dilTIAZem HCL CD 120 MG CAP.24HR PO (08:58)
[2023-10-19] MEDS: PREGABALIN (*CRX) 75 MG CAPSULE PO ×2 (08:58→21:03)
[2023-10-19] MEDS: ASPIRIN 81 MG CHEWABLE TABLET PO (08:58)
[2023-10-19] MEDS: guaiFENesin 12 HR 600 MG TABCR PO ×2 (08:59→21:03)
[2023-10-19] MEDS: EZETIMIBE 10 MG TABLET PO (08:59)
[2023-10-19] MEDS: SIMETHICONE 80 MG TAB.CHEW PO (08:59)
[2023-10-19] MEDS: KETOROLAC 0.5% OP SOLN 5 ML BOTTLE 1 DROP RIGHT EYE ×2 (09:02→12:14)
[2023-10-19] MEDS: ENOXAPARIN 40 MG/0.4 ML SYRINGE SUB-Q (09:02)
[2023-10-19 09:03] VITALS: PULSE 63
[2023-10-19] MEDS: METOPROLOL TARTRATE 25 MG TABLET PO ×2 (09:03→21:03)
[2023-10-19] MEDS: METOPROLOL TARTRATE 12.5 MG TABLET PO ×2 (09:03→21:03)
[2023-10-19] MEDS: LIDOCAINE 5% PATCH 1 PATCH TRANSDERM (09:04)
--- NOTE | 2023-10-19 10:05 | PM.PNCARD ---
Progress Note: A&P Assessment and Plan (1) Coronary artery disease: Code(s): I25.10 - Atherosclerotic heart disease of [place] coronary artery without angina pectoris Status: Acute Plan 73-year-old lady with: Coronary artery disease status post surgical revascularization couple of years ago she is doing well clinically. She has normal left ventricular function, morbid obesity significant edema also previously untreated/poorly treated sleep apnea. She is feeling some better gradually in the hospital as she is using her CPAP device to sleep at night. Thus far she is also tolerating resumption of a bumetanide without undue renal insufficiency. The concept of amyloid heart disease was raised by the pulmonology continuous improvement consultant. There is no other clinical evidence pointing to this. Spoke to the patient about the concept of cardiac MRI which is current imaging modality of choice for this and is not available at this hospital. Pursuing this is an outpatient with course be reasonable but I believe would be a low yield exam Earl Arcos MD [facility] Subjective Date/time seen: Date of service: 10/19/23 10:05 Interval history: Reason for visit: Acute on chronic diastolic heart failure HPI: This is a 73-year-old woman I am seeing at the request of the hospitalist because of the diagnosis of CHF exacerbation.? She is known to Dr. Sanchez of our practice but I do not believe I have seen this lady in the past.? She has a history of chronic coronary artery disease and a history of diastolic left ventricular dysfunction by evaluation that has been done over the last several years in our office.? She was found to have coronary artery disease when she presented to this hospital with ACS back in 2020.? She was brought to the cardiac catheterization lab and found to have multivessel coronary disease including high-grade ostial stenosis of the LAD.? She was referred to [facility] for surgical revascularization.? She received an DANA graft to the LAD, a radial graft to the PDA and a saphenous vein graft to the OM.? She has been seeing Dr. Sanchez since then and chronically has complaints of shortness of breath and variable amounts of lower extremity edema which has been attributed to morbid obesity and the concept that she also may have lymphedema.? She has had recent stress tests and echocardiograms demonstrating normal left ventricular systolic function.? During her most recent office visit she continued re complain of exertional dyspnea and so a Lexiscan nuclear stress test was done to ensure there was a ischemic burden.? That study was done in our office on 09/28/2023.? It was interpreted by my partner is showing evidence of an ejection fraction of 58% and there was evidence of severe multivessel ischemia with several ischemic defects being identified.? Interpreting this of course has to be taken indigo account her BMI of 55.? Because of these findings follow-up left heart catheterization was recommended and is currently scheduled to be done in the last week of this month over at [facility] as an outpatient.Her ongoing symptoms of shortness of breath and edema made her concerned and she came back to this hospital and was once again readmitted to the hospital. Upon coming into her room she does not appear to be and any distress.She is also reporting difficulty with early satiety bloating and difficulty beginning nauseated and bloating following eating small amounts of food.? Date of service 09/28: Still has some shortness of breath. Diuresing well. Date of service 09/29: Gets shortness of breath that improves with breathing treatments. Her mouth feels dry. Date of service 10/01/2023: She feels weak and tired. Describes a pain in her right upper chest with deep breathing. Date of service 10/03/2023: Patient has multiple complaints. Feels weak, tired, shaky at times, dizzy with ambulation, short of breath, burning in right upper ch
--- NOTE | 2023-10-19 11:22 | PM.IMPN ---
Progress Note: A&P Assessment and Plan (1) CASTELAN (dyspnea on exertion): Code(s): R06.00 - Dyspnea, unspecified <Caty Covington, Student - Last Filed: 10/19/23 15:35> Status: Acute <Caty Covington, Student - Last Filed: 10/19/23 15:35> Assessment and Plan: Patient continues to complain about SOB mostly with exertion. Initially felt related to PNA (has completed treatment) and/or CHF (felt to be close to dry weight). Further workup has included: -- Echo with EF 60-65%, moderate concentric LV wall thickness and Grade I diastolic dysfunction and minimal valvular dz -- CTA chest negative for PE. Recent VQ scan was low probability. Venous doppler negative for DVT -- Recent noncontrast CT chest showing no acute process. -- She has been compliant with Auto-PAP -- Trelegy inhaler started but causing symptoms. Not on O2 here. Worse with walking. Pulmonary consulted and appreciate their input. Patient has known pulmonary HTN (PASP 45 this admission). Amyloid considered but has had negative UIF, SIF and normal light chains. E-D can have valvular disease, CAD and Ao dilation Adjusting her auto-PAP. Diltiazem started for her pulmonary HTN and for proteinuria. Trelegy stopped Recommended SNF but she wanting to go home at discharge Pulmonology recommends further outpatient workup for her pulmonary HTN and more rare causes of her symptoms <Caty Covington, Student - Last Filed: 10/19/23 15:35> Patient continues to complain about SOB mostly with exertion. Initially felt related to PNA (has completed treatment) and/or CHF (felt to be close to dry weight). Further workup has included: -- Echo with EF 60-65%, moderate concentric LV wall thickness and Grade I diastolic dysfunction and minimal valvular dz -- CTA chest negative for PE. Recent VQ scan was low probability. Venous doppler negative for DVT -- Recent noncontrast CT chest showing no acute process. -- She has been compliant with Auto-PAP -- Trelegy inhaler started but causing symptoms. Not on O2 here. Worse with walking. Pulmonary consulted and appreciate their input. Patient has known pulmonary HTN (PASP 45 this admission). Amyloid considered but has had negative UIF, SIF and normal light chains. E-D can have valvular disease, CAD and Ao dilation Adjusting her auto-PAP. Diltiazem started for her pulmonary HTN and for proteinuria. Bhavya stopped Recommended SNF but she wanting to go home at discharge Pulmonology recommends further outpatient workup for her pulmonary HTN and more rare causes of her symptoms PAP settings being adjusted. Home tomorrow once this is arranged. <Marcellus Dorantes MD - Last Filed: 10/19/23 19:07> (2) Acute kidney injury superimposed on chronic kidney disease: Code(s): N17.9 - Acute kidney failure, unspecified; N18.9 - Chronic kidney disease, unspecified <Caty Covington Student - Last Filed: 10/19/23 15:35> Status: Acute <Caty Covington Student - Last Filed: 10/19/23 15:35> Assessment and Plan: Baseline Cr 1.6-1.8 range. Cr 1.6 on admission but climbed to 3.2 related to contrast, diuretics, ARB and underlying CKD Renal US showing no acute findings. Tolerated intermittent doses of Bumex Nephrology following and appreciate their input. Nuclear med renal scan ordered showing symmetric renal fxn with borderline delayed clearance. Likely due to contrast nephropathy in conjunction with IV diuretic therapy per nephrology Holding [employer]. On a low potassium diet Cr decreased to 2.20 today (10/18) Remains on oral Bumex 1mg BID Continue to monitor UOP, renal function and electrolytes <Caty Covington Student - Last Filed: 10/19/23 15:35> (3) Acute on chronic heart failure with preserved ejection fraction: Code(s): I50.33 - Acute on chronic diastolic (congestive) heart failure <Caty Covington Student - Last Filed: 10/19/23 15:35> Status: Acute <Caty Carvajal
[2023-10-19 12:10] LABS: Glucose Point of Care 202 mg/dl (65-105)
[2023-10-19 13:59] VITALS: BP 150/81; PULSE 56; RESP 17; TEMP 35.9; O2SAT 100
[2023-10-19 17:22] LABS: Glucose Point of Care 109 mg/dl (65-105)
[2023-10-19 19:51] VITALS: BP 133/80; PULSE 77; RESP 22; TEMP 37.1; O2SAT 91
[2023-10-19 19:52] LABS: Glucose Point of Care 232 mg/dl (65-105)
[2023-10-19 21:03] VITALS: PULSE 77
[2023-10-19] MEDS: PANTOPRAZOLE 40 MG TABLET PO (21:03)
[2023-10-19] MEDS: INSULIN GLARGINE (*BKC) 100 UNITS/ML 10 UNITS SUB-Q (21:04)
[2023-10-20] VITALS (11 sets, daily range): BP systolic 148–157; BP diastolic 55–83; PULSE 56–66; RESP 14–20; TEMP 36.4–36.8; O2SAT 94–100
[2023-10-20 07:21] LABS: Albumin Level 3.2 g/dL (3.5-5.1); Anion Gap 1 mmol/L (4-12); Blood Urea Nitrogen 31 mg/dL (7-17); Calcium 8.4 mg/dL (8.4-10.2); Carbon Dioxide 31 mmol/L (22-30); Chloride 106 mmol/L (98-107); Estimated CRCL calculation 31 ml/min; Estimated Glomerular Filt Rate 26; Glucose 217 mg/dL (65-110); Phosphorus 3.9 mg/dL (2.5-4.5); Potassium 3.7 mmol/L (3.4-5.0); Sodium 138 mmol/L (137-145)
[2023-10-20 08:30] LABS: Glucose Point of Care 197 mg/dl (65-105)
[2023-10-20] MEDS: dilTIAZem HCL CD 120 MG CAP.24HR PO (08:59)
[2023-10-20] MEDS: METOPROLOL TARTRATE 25 MG TABLET PO ×2 (08:59→21:46)
[2023-10-20] MEDS: ASPIRIN 81 MG CHEWABLE TABLET PO (08:59)
[2023-10-20] MEDS: METOPROLOL TARTRATE 12.5 MG TABLET PO ×2 (08:59→21:46)
[2023-10-20] MEDS: EZETIMIBE 10 MG TABLET PO (08:59)
[2023-10-20] MEDS: PREGABALIN (*CRX) 75 MG CAPSULE PO ×2 (08:59→21:47)
[2023-10-20] MEDS: CLOPIDOGREL BISULFATE 75 MG TABLET PO (08:59)
[2023-10-20] MEDS: guaiFENesin 12 HR 600 MG TABCR PO ×2 (09:00→21:44)
[2023-10-20] MEDS: FAMOTIDINE 20 MG TABLET 40 MG PO (09:00)
[2023-10-20] MEDS: INSULIN ASPART (*BKC) 100 UNITS/ML SUB-Q ×3 (09:00→17:48)
[2023-10-20] MEDS: BUMETANIDE 1 MG TABLET PO ×2 (09:00→17:48)
[2023-10-20] MEDS: KETOROLAC 0.5% OP SOLN 5 ML BOTTLE 1 DROP RIGHT EYE ×3 (09:01→17:48)
[2023-10-20] MEDS: ENOXAPARIN 40 MG/0.4 ML SYRINGE SUB-Q (09:06)
--- NOTE | 2023-10-20 09:32 | P.PNNP_ITS ---
Progress Note: A&P Assessment and Plan (1) KEZIA (acute kidney injury): Code(s): N17.9 - Acute kidney failure, unspecified Status: Acute Assessment and Plan: * Creatinine in 202 was in the mid 1s, 2020 it was in the high 1s, and 2020 to it was 1.8-2 and this year it has been ranging 1.8-2.2. * Her creatinine this admission peter to 3 after contrast but is back down to 2.2 now. * The patient is getting diuretics now to treat her edema. * creatinine stable at 2.2. * Will follow. In the future will restart her irbesartan. * okay for discharge from the kidney standpoint. If she goes home she should make an appointment in my office. (2) Chronic kidney disease, stage 3b: Code(s): N18.32 - Chronic kidney disease, stage 3b Status: Chronic Assessment and Plan: * baseline creatinine runs in the 2ish range (but has fluctuated to extremes...) * this translates to a GFR in the low 30s range * etiology is due to hypertension, diabetes, and age-related change with some contributions from FILI and chronic diuretic therapy (3) CASTELAN (dyspnea on exertion): Code(s): R06.00 - Dyspnea, unspecified Status: Acute Assessment and Plan: * not requiring supplemental oxygen at this time * Dr Johnson is seeing the patient. * Trying to treat the treatables. She is on Bumex. She is getting CPAP. Adjusting blood pressure meds to bring her blood pressure down. There may be some deconditioning. I encouraged patient to continue to get out of bed every day. (4) Acute on chronic heart failure with preserved ejection fraction: Code(s): I50.33 - Acute on chronic diastolic (congestive) heart failure Status: Acute Assessment and Plan: * suspected based on presentation of SOB and evidence of fluid overload * recent Echo noted: LVEF 60-65%, grade 1 diastolic dysfunction, mild biatrial enlargement, mild TR * unclear if ongoing dyspnea is related to CHF at this time... * almost 10L negative since admission. Unfortunately her weights have not re flect that. I am not sure if the intake/output is accurate but also with the variability in her weights these may not be accurate either. Overall the patient does not feel like she has improved since admission. * diuretics were on hold due to #1 -- resumed on oral bumex * repeat CT of chest noted... * COPD/FILI playing a role with dyspnea(?) * continue to monitor daily weights, urine output, and I/O's * Cardiology recommendations noted * plan to add Jardiance and spironolactone near discharge * no plans for ischemic evaluation at this time (5) Edema: Code(s): R60.9 - Edema, unspecified Status: Acute Assessment and Plan: * significant and chronic issue * Continue Bumex as tolerated by the creatinine * She is currently on 1mg twice a day continue this as an outpatient (6) Essential hypertension: Code(s): I10 - Essential (primary) hypertension Status: Chronic Assessment and Plan: * Her systolic blood pressure is high. * She is on metoprolol and diltiazem. * Reconsider irbesartan 10 if the creatinine remains stable at the next office visit (7) Type 2 diabetes mellitus with hyperglycemia: Code(s): E11.65 - Type 2 diabetes mellitus with hyperglycemia Status: Chronic Assessment and Plan: * follow accu-cheks * glycemic control per hospitalists Subjective Date/time seen: 10/20/23 09:32 Interval history: patient is alert. Eager to go home still some swelling.
--- NOTE | 2023-10-20 09:32 | PM.PNNEP ---
Progress Note: A&P Assessment and Plan (1) KEZIA (acute kidney injury): Code(s): N17.9 - Acute kidney failure, unspecified Status: Acute Assessment and Plan: Creatinine in 202 was in the mid 1s, 2020 it was in the high 1s, and 2019 to it was 1.8-2 and this year it has been ranging 1.8-2.2. Her creatinine this admission peter to 3 after contrast but is back down to 2.2 now. The patient is getting diuretics now to treat her edema. creatinine stable at 2.2. Will follow. In the future will restart her irbesartan. okay for discharge from the kidney standpoint. If she goes home she should make an appointment in my office. (2) Chronic kidney disease, stage 3b: Code(s): N18.32 - Chronic kidney disease, stage 3b Status: Chronic Assessment and Plan: baseline creatinine runs in the 2ish range (but has fluctuated to extremes...) this translates to a GFR in the low 30s range etiology is due to hypertension, diabetes, and age-related change with some contributions from FILI and chronic diuretic therapy (3) CASTELAN (dyspnea on exertion): Code(s): R06.00 - Dyspnea, unspecified Status: Acute Assessment and Plan: not requiring supplemental oxygen at this time Dr Johnson is seeing the patient. Trying to treat the treatables. She is on Bumex. She is getting CPAP. Adjusting blood pressure meds to bring her blood pressure down. There may be some deconditioning. I encouraged patient to continue to get out of bed every day. (4) Acute on chronic heart failure with preserved ejection fraction: Code(s): I50.33 - Acute on chronic diastolic (congestive) heart failure Status: Acute Assessment and Plan: suspected based on presentation of SOB and evidence of fluid overload recent Echo noted: LVEF 60-65%, grade 1 diastolic dysfunction, mild biatrial enlargement, mild TR unclear if ongoing dyspnea is related to CHF at this time... almost 10L negative since admission. Unfortunately her weights have not reflect that. I am not sure if the intake/output is accurate but also with the variability in her weights these may not be accurate either. Overall the patient does not feel like she has improved since admission. diuretics were on hold due to #1 -- resumed on oral bumex repeat CT of chest noted... COPD/FILI playing a role with dyspnea(?) continue to monitor daily weights, urine output, and I/O's Cardiology recommendations noted plan to add Jardiance and spironolactone near discharge no plans for ischemic evaluation at this time (5) Edema: Code(s): R60.9 - Edema, unspecified Status: Acute Assessment and Plan: significant and chronic issue Continue Bumex as tolerated by the creatinine She is currently on 1mg twice a day continue this as an outpatient (6) Essential hypertension: Code(s): I10 - Essential (primary) hypertension Status: Chronic Assessment and Plan: Her systolic blood pressure is high. She is on metoprolol and diltiazem. Reconsider irbesartan 10 if the creatinine remains stable at the next office visit (7) Type 2 diabetes mellitus with hyperglycemia: Code(s): E11.65 - Type 2 diabetes mellitus with hyperglycemia Status: Chronic Assessment and Plan: follow accu-cheks glycemic control per hospitalists Subjective Date/time seen: 10/20/23 09:32 Interval history: patient is alert. Eager to go home still some swelling. Still some shortness of breath. Exam Narrative: General: elderly but WD/WN female in NAD Heart: normal S1 and S2; Lungs: clear anteriorly; coarse and decreased at bases Abdomen: soft, nontender, nondistended, positive bowel sounds Extremities: 1 - 2+ edema bilaterally Skin: No rash or subcu nodules Objective Data Vital Signs Vital Signs: Vital Signs - 24 hr 10/19/23 13:59 10/19/23 19:51 10/19/23 21:03 Tem
[2023-10-20 12:05] LABS: Glucose Point of Care 313 mg/dl (65-105)
[2023-10-20] MEDS: ALBUTEROL SULFATE NEB 2.5 MG/3 ML INH INHALATION (13:53)
[2023-10-20 17:10] LABS: Glucose Point of Care 293 mg/dl (65-105)
--- NOTE | 2023-10-20 17:40 | PM.IMPN ---
Progress Note: A&P Assessment and Plan (1) CASTELAN (dyspnea on exertion): Code(s): R06.00 - Dyspnea, unspecified Status: Acute Assessment and Plan: Patient continues to complain about SOB mostly with exertion. Initially felt related to PNA (has completed treatment) and/or CHF. Further workup has included: -- Echo with EF 60-65%, moderate concentric LV wall thickness and Grade I diastolic dysfunction and minimal valvular dz -- CTA chest negative for PE. Recent VQ scan was low probability. Venous doppler negative for DVT -- Recent noncontrast CT chest showing no acute process. -- She has been compliant with Auto-PAP -- Trelegy inhaler started but causing symptoms. Not on O2 here. Worse with walking. Pulmonary consulted and appreciate their input. Patient has known pulmonary HTN (PASP 45 this admission). Amyloid considered but has had negative UIF, SIF and normal light chains. Adjusting her auto-PAP. Diltiazem started for her pulmonary HTN and for proteinuria. Trelegy stopped Recommended SNF but she is wanting to go home at discharge Pulmonology recommends further outpatient workup at the Pulmonary HTN clinic to evaluate for more rare causes of her symptoms PAP settings being adjusted. Home Sunday once BiPAP arranged. (2) Acute kidney injury superimposed on chronic kidney disease: Code(s): N17.9 - Acute kidney failure, unspecified; N18.9 - Chronic kidney disease, unspecified Status: Acute Assessment and Plan: Baseline Cr 1.6-1.8 range. Cr 1.6 on admission but climbed to 3.2 related to contrast, diuretics, ARB and underlying CKD Renal US showing no acute findings. Tolerated intermittent doses of Bumex Nephrology following and appreciate their input. Nuclear med renal scan ordered showing symmetric renal fxn with borderline delayed clearance c/w ATN Consider also due to contrast nephropathy in conjunction with IV diuretic therapy Lyrica dose renally adjusted. On a low potassium diet Cr stable at 2.20 today (10/19) Remains on oral Bumex 1mg BID Continue to monitor UOP, renal function and electrolytes (3) Acute on chronic heart failure with preserved ejection fraction: Code(s): I50.33 - Acute on chronic diastolic (congestive) heart failure Status: Acute Assessment and Plan: Suspected based on presentation of SOB and evidence of fluid overload Echo on 09/27 noted: LVEF 60-65%, grade 1 diastolic dysfunction, mild biatrial enlargement, mild TR Over 10L negative since admission Diuretics were on hold due to KEZIA -- resumed on oral bumex Repeat CT of chest on 10/12 noted no acute thoracic process Concern for ischemia with abnormal stress test recently but no plans for inpatient ischemic evaluation at this time Continue oral Bumex Continue PT/OT Continue to monitor daily weights, urine output, and I/O's (4) Pneumonia: Code(s): J18.9 - Pneumonia, unspecified organism Status: Acute Assessment and Plan: Pleuritic right-sided chest 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 D-Dimer was positive but CTA chest showing no PE and LE venous doppler negative for DVT. Rib xray negative for fracture and no evidence of shingles. Suspect chronic musculoskeletal pain that worsened due to tachypnea and cough. Lidocaine patch ordered. Symptomatic care. CT did show small pulmonary nodules with interval change in distribution, may be a component of edema or infection. Possible pneumonia so she was on Rocephin and azithromycin. She completed abx; off abx 10/03. Repeat CXR 10/05 is clear. PNA resolved VQ scan showing low probability. Repeat CT chest 10/12 w/o contrast was clear. Follow for symptomatic care (5) Chronic kidney disease, stage 3b: Code(s): N18.32 - Chronic kidney disease, stage 3b Status: Chronic Assessment and Plan: Baseline creatinine runs in the 2ish range (but has fluctuated) Etiology is due to hypertension, diabetes, and age-related change with so
[2023-10-20] MEDS: FLUTICASONE/SALMETEROL 230-21 MCG INHALER 1 PUFF 2 PUFF INHALATION (20:30)
[2023-10-20] MEDS: INSULIN GLARGINE (*BKC) 100 UNITS/ML 16 UNITS SUB-Q (21:45)
[2023-10-20] MEDS: PANTOPRAZOLE 40 MG TABLET PO (21:45)
[2023-10-20] MEDS: ACETAMINOPHEN 325 MG TABLET 650 MG PO (21:49)
[2023-10-20 22:51] LABS: Glucose Point of Care 244 mg/dl (65-105)
[2023-10-21] VITALS (12 sets, daily range): BP systolic 115–154; BP diastolic 60–62; PULSE 57–70; RESP 16–18; TEMP 36.5–36.8; O2SAT 97–98
[2023-10-21] MEDS: ALBUTEROL SULFATE NEB 2.5 MG/3 ML INH INHALATION (06:02)
[2023-10-21 06:16] LABS: Basophils Percent Auto 0.5 % (0.2-1.2); Eosinophils Absolute Auto 0.2 K/mm3 (0-0.3); Eosinophils Percent Auto 3.6 % (0-4.4); Hematocrit 28.1 % (37.0-47.0); Hemoglobin 8.7 g/dL (12.0-15.0); Immature Granulocyte Absolute 0.02 K/mm3 (0.00-0.031); Immature Granulocyte Percent A 0.3 % (0-0.5); Immature Platelet Fraction Pct 10.2 % (0.9-11.2); Lymphocytes Absolute Auto 1.51 K/mm3 (0.9-3.2); Lymphocytes Percent Auto 26.1 % (18.3-44.2); Mean Corpuscular Hemoglobin 29.9 pg (26-34); Mean Corpuscular Volume 96.6 fl (80-100); Mean Platelet Volume 13.1 fl (7.4-10.4); Monocytes Percent Auto 16.8 % (2.6-8.5); Neutrophils Percent Auto 52.7 % (45.5-73.1); Platelet Count Result 166 k/mm3 (150-375); Red Blood Count 2.91 M/mm3 (4.2-5.4); Red Cell Distribution Width 15.4 % (11.5-14.5); White Blood Count 5.8 K/mm3 (4.5-10.0)
[2023-10-21 06:26] LABS: Albumin Level 3.2 g/dL (3.5-5.1); Anion Gap 3 mmol/L (4-12); Blood Urea Nitrogen 34 mg/dL (7-17); Calcium 8.3 mg/dL (8.4-10.2); Carbon Dioxide 30 mmol/L (22-30); Chloride 104 mmol/L (98-107); Estimated CRCL calculation 28 ml/min; Estimated Glomerular Filt Rate 24; Glucose 261 mg/dL (65-110); Magnesium 1.8 mg/dL (1.6-2.3); Phosphorus 3.9 mg/dL (2.5-4.5); Potassium 3.6 mmol/L (3.4-5.0); Sodium 137 mmol/L (137-145)
[2023-10-21] MEDS: FLUTICASONE/SALMETEROL 230-21 MCG INHALER 1 PUFF 2 PUFF INHALATION ×2 (08:06→19:58)
[2023-10-21 08:26] LABS: Glucose Point of Care 281 mg/dl (65-105)
[2023-10-21] MEDS: BUMETANIDE 1 MG TABLET PO ×2 (08:38→17:28)
[2023-10-21] MEDS: CLOPIDOGREL BISULFATE 75 MG TABLET PO (08:38)
[2023-10-21] MEDS: ASPIRIN 81 MG CHEWABLE TABLET PO (08:38)
[2023-10-21] MEDS: EZETIMIBE 10 MG TABLET PO (08:39)
[2023-10-21] MEDS: ERGOCALCIFEROL 50,000 UNITS CAPSULE 50000 UNITS PO (08:39)
[2023-10-21] MEDS: ENOXAPARIN 40 MG/0.4 ML SYRINGE SUB-Q (08:39)
[2023-10-21] MEDS: dilTIAZem HCL CD 120 MG CAP.24HR PO (08:39)
[2023-10-21] MEDS: guaiFENesin 12 HR 600 MG TABCR PO ×2 (08:40→21:39)
[2023-10-21] MEDS: FAMOTIDINE 20 MG TABLET 40 MG PO (08:40)
[2023-10-21] MEDS: METOPROLOL TARTRATE 12.5 MG TABLET PO ×2 (08:40→21:43)
[2023-10-21] MEDS: PREGABALIN (*CRX) 75 MG CAPSULE PO ×2 (08:41→21:43)
[2023-10-21] MEDS: METOPROLOL TARTRATE 25 MG TABLET PO ×2 (08:41→21:40)
[2023-10-21] MEDS: INSULIN ASPART (*BKC) 100 UNITS/ML SUB-Q ×5 (08:42→17:29)
--- NOTE | 2023-10-21 09:43 | P.PNNP_ITS ---
Progress Note: A&P Assessment and Plan (1) KEZIA (acute kidney injury): Code(s): N17.9 - Acute kidney failure, unspecified Status: Acute Assessment and Plan: * Creatinine in 202 was in the mid 1s, 2020 it was in the high 1s, and 2020 to it was 1.8-2 and this year it has been ranging 1.8-2.2. * Her creatinine this admission peter to 3 after contrast but is back down to 2.2 now. * The patient is getting diuretics now to treat her edema. * creatinine has been bouncing up and down. Today it is 2.4. she has been this high before and improved even while continuing the bumetanide so will continue it for 1 more day and see what her labs look like tomorrow. * Will follow. In the future will restart her irbesartan once the creatinine has been relatively stable for a few days. (2) Chronic kidney disease, stage 3b: Code(s): N18.32 - Chronic kidney disease, stage 3b Status: Chronic Assessment and Plan: * baseline creatinine runs in the 2ish range (but has fluctuated to extremes...) * this translates to a GFR in the low 30s range * etiology is due to hypertension, diabetes, and age-related change with some contributions from FILI and chronic diuretic therapy (3) CASTELAN (dyspnea on exertion): Code(s): R06.00 - Dyspnea, unspecified Status: Acute Assessment and Plan: * not requiring supplemental oxygen at this time * Dr Johnson is seeing the patient. * Trying to treat the treatables. She is on Bumex. She is getting CPAP. Adjusting blood pressure meds to bring her blood pressure down. * continue Bumex as long as her renal function tolerates this. * Will repeat the chest x-ray. Last 1 showed a little bit of interstitial edema. He has been on Bumex for the last few days. Make sure this is getting better. * Worse case scenario if the kidney function continues to deteriorate we could start dialysis but we want to try to do everything short of that. * because she is not on oxygen, I am not convinced that just removing fluid by itself is going to make her substantially less short of breath. There are multiple factors in play including sleep apnea and probably deconditioning. (4) Acute on chronic heart failure with preserved ejection fraction: Code(s): I50.33 - Acute on chronic diastolic (congestive) heart failure Status: Acute Assessment and Plan: * suspected based on presentation of SOB and evidence of fluid overload * recent Echo noted: LVEF 60-65%, grade 1 diastolic dysfunction, mild biatrial enlargement, mild TR * Long discussion with Dr. Arcos the other day. he does not believe ischemia is playing a role. * Try to diurese as tolerated. (5) Edema: Code(s): R60.9 - Edema, unspecified Status: Acute Assessment and Plan: * significant and chronic issue * Continue Bumex as tolerated by the creatinine * If the creatinine remains stable we can try increasing this to2mg twice a day. This is what she was on as an outpatient * see what the chest x-ray today and her creatinine tomorrow shows. * She is currently on 1mg twice a day continue this as an outpatient (6) Essential hypertension: Code(s): I10 - Essential (primary) hypertension Status: Chronic Assessment and Plan: * Her systolic blood pressure is better. * Systolic ranging from 110s to 150s * She is on metoprolol and diltiazem. * Reconsider irbesartan 10 if the creatinine remains stable at the next office visit (7) Type 2 diabetes mellitus with hyperglycemia: Code(s): E11.65 - Type 2 diabetes mellitus with hyp
--- NOTE | 2023-10-21 09:43 | PM.PNNEP ---
Progress Note: A&P Assessment and Plan (1) KEZIA (acute kidney injury): Code(s): N17.9 - Acute kidney failure, unspecified Status: Acute Assessment and Plan: Creatinine in 202 was in the mid 1s, 2020 it was in the high 1s, and 2020 to it was 1.8-2 and this year it has been ranging 1.8-2.2. Her creatinine this admission peter to 3 after contrast but is back down to 2.2 now. The patient is getting diuretics now to treat her edema. creatinine has been bouncing up and down. Today it is 2.4. she has been this high before and improved even while continuing the bumetanide so will continue it for 1 more day and see what her labs look like tomorrow. Will follow. In the future will restart her irbesartan once the creatinine has been relatively stable for a few days. (2) Chronic kidney disease, stage 3b: Code(s): N18.32 - Chronic kidney disease, stage 3b Status: Chronic Assessment and Plan: baseline creatinine runs in the 2ish range (but has fluctuated to extremes...) this translates to a GFR in the low 30s range etiology is due to hypertension, diabetes, and age-related change with some contributions from FILI and chronic diuretic therapy (3) CASTELAN (dyspnea on exertion): Code(s): R06.00 - Dyspnea, unspecified Status: Acute Assessment and Plan: not requiring supplemental oxygen at this time Dr Johnson is seeing the patient. Trying to treat the treatables. She is on Bumex. She is getting CPAP. Adjusting blood pressure meds to bring her blood pressure down. continue Bumex as long as her renal function tolerates this. Will repeat the chest x-ray. Last 1 showed a little bit of interstitial edema. He has been on Bumex for the last few days. Make sure this is getting better. Worse case scenario if the kidney function continues to deteriorate we could start dialysis but we want to try to do everything short of that. because she is not on oxygen, I am not convinced that just removing fluid by itself is going to make her substantially less short of breath. There are multiple factors in play including sleep apnea and probably deconditioning. (4) Acute on chronic heart failure with preserved ejection fraction: Code(s): I50.33 - Acute on chronic diastolic (congestive) heart failure Status: Acute Assessment and Plan: suspected based on presentation of SOB and evidence of fluid overload recent Echo noted: LVEF 60-65%, grade 1 diastolic dysfunction, mild biatrial enlargement, mild TR Long discussion with Dr. Arcos the other day. he does not believe ischemia is playing a role. Try to diurese as tolerated. (5) Edema: Code(s): R60.9 - Edema, unspecified Status: Acute Assessment and Plan: significant and chronic issue Continue Bumex as tolerated by the creatinine If the creatinine remains stable we can try increasing this to2mg twice a day. This is what she was on as an outpatient see what the chest x-ray today and her creatinine tomorrow shows. She is currently on 1mg twice a day continue this as an outpatient (6) Essential hypertension: Code(s): I10 - Essential (primary) hypertension Status: Chronic Assessment and Plan: Her systolic blood pressure is better. Systolic ranging from 110s to 150s She is on metoprolol and diltiazem. Reconsider irbesartan 10 if the creatinine remains stable at the next office visit (7) Type 2 diabetes mellitus with hyperglycemia: Code(s): E11.65 - Type 2 diabetes mellitus with hyperglycemia Status: Chronic Assessment and Plan: follow accu-cheks glycemic control per hospitalists Subjective Date/time seen: 10/21/23 09:43 Interval history: Katlin still has some episodes of shortness of breath. She is still frustrated with this. She know she has had a lot of test but does not like not having an answer. Exam Narrative:
--- NOTE | 2023-10-21 12:21 | PM.PNPUL ---
Progress Note: A&P Assessment and Plan (1) Dyspnea on exertion: Code(s): R06.00 - Dyspnea, unspecified Status: Acute Assessment and Plan: The patient has episodic dyspnea, does not appear to have actual pneumonia this admission. PFTs do not confirm obstructive airways disease. She does have significant pulmonary hypertension, cause not clear. Most pulmonary hypertension is secondary to lung disease or heart disease. Prior workup showed normal ANIA several times, likely she does not have collagen vascular disease. Does not have any obvious collagen vascular physical findings, no deforming arthritis, rashes, See pulmonary hypertension section below. She acknowledged that she might benefit from rehab. Rehab will allow her to have more support, and she will have more physical conditioning. (2) FILI (obstructive sleep apnea): Code(s): G47.33 - Obstructive sleep apnea (adult) (pediatric) Status: Acute Assessment and Plan: Most recent sleep study was June 27, 2023 a split night study with an AHI of 15 0.3 and desaturation 84%. She has not been set up with PAP yet. The final pressure during this setting was 10 cm but here on APAP with pressures increased to 8-18 for several nights, feels better, finally getting sleep, wants to use at discharge. This will be arranged at discharge to rehab, then set up at home. Not sure what happened, she says that she was going to get PAP set up at home but DME was calling when she was getting admitted to hospital. (3) Severe pulmonary arterial systolic hypertension: Onset Date: ~01/2020 Code(s): I27.21 - Secondary pulmonary arterial hypertension Status: Acute Assessment and Plan: She has longstanding pulmonary hypertension, type is not certain. She does not have Group 3, PHTN due to lung disease. She has never required supplemental O2 at home. 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 Not certain if this is associated with her other conditions. Plan She is a complicated patient, has multiple different organs not optimally functioning, and control of blood pressure may be helpful. I discussed with Dr. Pulliam. I will follow her closely in the office after discharge. Use spacer with inhalers here and at home; medications are more effective using spacer. Stopped Trelegy; Advair or other 2 drug combination without LAMA. She is a never-smoker; last PFT was 04/15/2020, normal FEV1/FVC, no response to bronchodilator, air trapping, moderate diffusion impairment which overcorrects for alveolar volume; this is not emphysema. Not sure she has obstructive lung disease, therefore bronchodilators may not be adding anything. With Trelegy, she c/o burning, feeling as if it is too strong. continue increased range on APAP 8-18 cm; she said that APAP 5-15 cm was not enough pressure, had a sensation of smothering. Had final pressure of CPAP 10 cm on split night study however she was in a recliner, reducing severity of FILI. She is in a bed here, still sleeping with HOB elevated. Set home device APAP with higher pressures as the CPAP 10 may not be enough pressure. her episodic shortness of breath is not due to CHF per cardiology; not clear what the root cause is. This may be due to her pulmonary hypertension. Doubt this due to sleep and hypoxemia. She has atypical symptoms, may have a common condition with uncommon way of describing her symptoms. 10/19/23 d/w Dr Pulliam. 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
[2023-10-21 12:32] LABS: Glucose Point of Care 278 mg/dl (65-105)
[2023-10-21] MEDS: KETOROLAC 0.5% OP SOLN 5 ML BOTTLE 1 DROP RIGHT EYE ×2 (12:40→17:28)
[2023-10-21 17:16] LABS: Glucose Point of Care 352 mg/dl (65-105)
--- NOTE | 2023-10-21 17:21 | PM.IMPN ---
Progress Note: A&P Assessment and Plan (1) CASTELAN (dyspnea on exertion): Code(s): R06.00 - Dyspnea, unspecified Status: Acute Assessment and Plan: Patient continues to complain about SOB mostly with exertion. Initially felt related to PNA (has completed treatment) and/or CHF. Further workup has included: -- Echo with EF 60-65%, moderate concentric LV wall thickness and Grade I diastolic dysfunction and minimal valvular dz -- CTA chest negative for PE. Recent VQ scan was low probability. Venous doppler negative for DVT -- Recent noncontrast CT chest showing no acute process. -- She has been compliant with Auto-PAP -- Trelegy inhaler started but causing symptoms. Not on O2 here. Worse with walking. Pulmonary consulted and appreciate their input. Patient has known pulmonary HTN (PASP 45 this admission). Amyloid considered but has had negative UIF, SIF and normal light chains. Adjusting her auto-PAP. Diltiazem started for her pulmonary HTN and for proteinuria. Trelegy stopped Recommended SNF but she is wanting to go home at discharge CXR today showing no change and possibly subpleural edema and small pleural effusions. Pulmonology recommends further outpatient workup at the Pulmonary HTN clinic to evaluate for more rare causes of her symptoms PAP settings being adjusted. Home Sunday once BiPAP arranged. (2) Acute kidney injury superimposed on chronic kidney disease: Code(s): N17.9 - Acute kidney failure, unspecified; N18.9 - Chronic kidney disease, unspecified Status: Acute Assessment and Plan: Baseline Cr 1.6-1.8 range. Cr 1.6 on admission but climbed to 3.2 related to contrast, diuretics, ARB and underlying CKD Renal US showing no acute findings. Tolerated intermittent doses of Bumex Nephrology following and appreciate their input. Nuclear med renal scan ordered showing symmetric renal fxn with borderline delayed clearance c/w ATN Consider also due to contrast nephropathy in conjunction with IV diuretic therapy Lyrica dose renally adjusted. On a low potassium diet Cr stable at 2.4 today (10/20) Remains on oral Bumex 1mg BID. Home Bumex dose was 2mg BID but reluctant to advance. Continue to monitor UOP, renal function and electrolytes (3) Acute on chronic heart failure with preserved ejection fraction: Code(s): I50.33 - Acute on chronic diastolic (congestive) heart failure Status: Acute Assessment and Plan: Suspected based on presentation of SOB and evidence of fluid overload Echo on 09/27 noted: LVEF 60-65%, grade 1 diastolic dysfunction, mild biatrial enlargement, mild TR Over 10L negative since admission Diuretics were on hold due to KEZIA -- resumed on oral bumex Repeat CT of chest on 10/12 noted no acute thoracic process; repeat CXR today as above. 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 D-Dimer was positive but CTA chest showing no PE and LE venous doppler negative for DVT. Rib xray negative for fracture and no evidence of shingles. Suspect chronic musculoskeletal pain that worsened due to tachypnea and cough. Lidocaine patch ordered. Symptomatic care. CT did show small pulmonary nodules with interval change in distribution, may be a component of edema or infection. Possible pneumonia so she was on Rocephin and azithromycin. She completed abx; off abx 10/03. Repeat CXR 10/05 is clear. PNA resolved VQ scan showing low probability. Repeat CT chest 10/12 w/o contrast was clear. Repeat CXR today again showing no evidence of PNA. PNA resolved (5) Chronic kidney disease, stage 3b: Code(s): N18.32 - Chronic kidne
--- NOTE | 2023-10-21 17:36 | PC.NURSE ---
Patient not adhering to fluid restriction. Fluid restriction education reinforced.
[2023-10-21] MEDS: PANTOPRAZOLE 40 MG TABLET PO (21:43)
[2023-10-21] MEDS: INSULIN GLARGINE (*BKC) 100 UNITS/ML 30 UNITS SUB-Q (21:46)
[2023-10-21 21:56] LABS: Glucose Point of Care 231 mg/dl (65-105)
[2023-10-22 06:00] LABS: Albumin Level 3.3 g/dL (3.5-5.1); Anion Gap 1 mmol/L (4-12); Blood Urea Nitrogen 35 mg/dL (7-17); Calcium 8.3 mg/dL (8.4-10.2); Carbon Dioxide 32 mmol/L (22-30); Chloride 106 mmol/L (98-107); Estimated CRCL calculation 31 ml/min; Estimated Glomerular Filt Rate 26; Glucose 241 mg/dL (65-110); Phosphorus 3.7 mg/dL (2.5-4.5); Potassium 3.8 mmol/L (3.4-5.0); Sodium 139 mmol/L (137-145)
[2023-10-22 06:47] VITALS: BP 139/77; PULSE 68; RESP 16; TEMP 36.5; O2SAT 96
[2023-10-22] MEDS: FLUTICASONE/SALMETEROL 230-21 MCG INHALER 1 PUFF 2 PUFF INHALATION (08:17)
[2023-10-22 08:22] LABS: Glucose Point of Care 291 mg/dl (65-105)
[2023-10-22 08:25] VITALS: O2SAT 97
[2023-10-22 09:00] VITALS: BP 102/73; PULSE 63; RESP 14; O2SAT 97
[2023-10-22 09:01] VITALS: PULSE 63
[2023-10-22] MEDS: EZETIMIBE 10 MG TABLET PO (09:01)
[2023-10-22] MEDS: guaiFENesin 12 HR 600 MG TABCR PO (09:01)
[2023-10-22] MEDS: METOPROLOL TARTRATE 25 MG TABLET PO (09:01)
[2023-10-22 09:02] VITALS: PULSE 63
[2023-10-22] MEDS: dilTIAZem HCL CD 120 MG CAP.24HR PO (09:02)
[2023-10-22] MEDS: PREGABALIN (*CRX) 75 MG CAPSULE PO (09:02)
[2023-10-22] MEDS: METOPROLOL TARTRATE 12.5 MG TABLET PO (09:02)
[2023-10-22] MEDS: FAMOTIDINE 20 MG TABLET 40 MG PO (09:02)
[2023-10-22] MEDS: CLOPIDOGREL BISULFATE 75 MG TABLET PO (09:02)
[2023-10-22] MEDS: ASPIRIN 81 MG CHEWABLE TABLET PO (09:02)
[2023-10-22] MEDS: BUMETANIDE 1 MG TABLET PO (09:02)
[2023-10-22] MEDS: INSULIN ASPART (*BKC) 100 UNITS/ML SUB-Q ×2 (09:03→12:25)
[2023-10-22] MEDS: INSULIN ASPART (*BKC) 100 UNITS/ML 8 UNITS SUB-Q ×2 (09:03→12:25)
[2023-10-22] MEDS: KETOROLAC 0.5% OP SOLN 5 ML BOTTLE 1 DROP RIGHT EYE ×2 (09:04→12:26)
[2023-10-22] MEDS: ENOXAPARIN 40 MG/0.4 ML SYRINGE SUB-Q (09:12)
--- NOTE | 2023-10-22 09:46 | P.PNNP_ITS ---
Progress Note: A&P Assessment and Plan (1) KEZIA (acute kidney injury): Code(s): N17.9 - Acute kidney failure, unspecified Status: Acute Assessment and Plan: * trend of creatinine noted: * creatinine in 2020 was in the mid 1s * in 2021, creatinie was in the high 1s * in 2022, it was 1.8 - 2.0mg/dl * this year it has been ranging 1.8 - 2.2mg/dl * creatinine this admission peter to 3 after contrast but is back down now * on diuretics to treat her edema. * creatinine has been bouncing up and down during this hospitalization * in the future, will restart her irbesartan once the creatinine has been relatively stable for a week or so.... (2) Chronic kidney disease, stage 3b: Code(s): N18.32 - Chronic kidney disease, stage 3b Status: Chronic Assessment and Plan: * baseline creatinine runs in the 2ish range (but has fluctuated to extremes...) * this translates to a GFR in the low 30s range * etiology is due to hypertension, diabetes, and age-related change with some contributions from FILI and chronic diuretic therapy (3) CASTELAN (dyspnea on exertion): Code(s): R06.00 - Dyspnea, unspecified Status: Acute Assessment and Plan: * not requiring supplemental oxygen at this time * Pulmonary following * attempting to treat the treatables : * on Bumex * getting CPAP * adjusting blood pressure meds as tolerated * continue Bumex as long as her renal function tolerates this. * worse case scenario if the kidney function continues to deteriorate we could start dialysis (but that is an extreme intervention and would be a last resort) * not convinced that just removing fluid by itself is going to make her substantially less short of breath (4) Acute on chronic heart failure with preserved ejection fraction: Code(s): I50.33 - Acute on chronic diastolic (congestive) heart failure Status: Acute Assessment and Plan: * suspected based on presentation of SOB and evidence of fluid overload * recent Echo noted: LVEF 60-65%, grade 1 diastolic dysfunction, mild biatrial enlargement, mild TR * long discussion with Dr. Arcos the other day. he does not believe ischemia is playing a role. * continue diuretics (5) Edema: Code(s): R60.9 - Edema, unspecified Status: Acute Assessment and Plan: * significant and chronic issue * continue Bumex as tolerated by the creatinine * currently on 1mg twice a day - continue this as an outpatient (6) Essential hypertension: Code(s): I10 - Essential (primary) hypertension Status: Chronic Assessment and Plan: * Her systolic blood pressure is better. * systolic ranging from 110s to 150s * She is on metoprolol and diltiazem. * Reconsider irbesartan down the line if the creatinine remains stable at the next office visit (7) Type 2 diabetes mellitus with hyperglycemia: Code(s): E11.65 - Type 2 diabetes mellitus with hyperglycemia Status: Chronic Assessment and Plan: * follow accu-cheks * glycemic control per hospitalists Will continue to follow. Subjective Date/time seen: 10/22/23 09:46 Interval history: Follow-up for acute kidney injury/acute renal failure on chronic kidney disease. Chart reviewed since last seen -- renal function remains relatively stable at this time; still reports some dyspnea on exertion but appears relatively stable; no other issues/events overnight or earlier this morning; tolerating current diuretic therapy. Exam Narra
--- NOTE | 2023-10-22 09:46 | PM.PNNEP ---
Progress Note: A&P Assessment and Plan (1) KEZIA (acute kidney injury): Code(s): N17.9 - Acute kidney failure, unspecified Status: Acute Assessment and Plan: trend of creatinine noted: creatinine in 2020 was in the mid 1s in 2021, creatinie was in the high 1s in 2022, it was 1.8 - 2.0mg/dl this year it has been ranging 1.8 - 2.2mg/dl creatinine this admission peter to 3 after contrast but is back down now on diuretics to treat her edema. creatinine has been bouncing up and down during this hospitalization in the future, will restart her irbesartan once the creatinine has been relatively stable for a week or so.... (2) Chronic kidney disease, stage 3b: Code(s): N18.32 - Chronic kidney disease, stage 3b Status: Chronic Assessment and Plan: baseline creatinine runs in the 2ish range (but has fluctuated to extremes...) this translates to a GFR in the low 30s range etiology is due to hypertension, diabetes, and age-related change with some contributions from FILI and chronic diuretic therapy (3) CASTELAN (dyspnea on exertion): Code(s): R06.00 - Dyspnea, unspecified Status: Acute Assessment and Plan: not requiring supplemental oxygen at this time Pulmonary following attempting to treat the treatables : on Bumex getting CPAP adjusting blood pressure meds as tolerated continue Bumex as long as her renal function tolerates this. worse case scenario if the kidney function continues to deteriorate we could start dialysis (but that is an extreme intervention and would be a last resort) not convinced that just removing fluid by itself is going to make her substantially less short of breath (4) Acute on chronic heart failure with preserved ejection fraction: Code(s): I50.33 - Acute on chronic diastolic (congestive) heart failure Status: Acute Assessment and Plan: suspected based on presentation of SOB and evidence of fluid overload recent Echo noted: LVEF 60-65%, grade 1 diastolic dysfunction, mild biatrial enlargement, mild TR long discussion with Dr. Arcos the other day. he does not believe ischemia is playing a role. continue diuretics (5) Edema: Code(s): R60.9 - Edema, unspecified Status: Acute Assessment and Plan: significant and chronic issue continue Bumex as tolerated by the creatinine currently on 1mg twice a day - continue this as an outpatient (6) Essential hypertension: Code(s): I10 - Essential (primary) hypertension Status: Chronic Assessment and Plan: Her systolic blood pressure is better. systolic ranging from 110s to 150s She is on metoprolol and diltiazem. Reconsider irbesartan down the line if the creatinine remains stable at the next office visit (7) Type 2 diabetes mellitus with hyperglycemia: Code(s): E11.65 - Type 2 diabetes mellitus with hyperglycemia Status: Chronic Assessment and Plan: follow accu-cheks glycemic control per hospitalists Will continue to follow. Subjective Date/time seen: 10/22/23 09:46 Interval history: Follow-up for acute kidney injury/acute renal failure on chronic kidney disease. Chart reviewed since last seen -- renal function remains relatively stable at this time; still reports some dyspnea on exertion but appears relatively stable; no other issues/events overnight or earlier this morning; tolerating current diuretic therapy. Exam Narrative: General: elderly but WD/WN female in NAD Heart: normal S1 and S2; no rub Lungs: clear anteriorly Abdomen: soft, nontender, nondistended, positive bowel sounds Extremities: 1 - 2+ edema bilaterally Skin: Warm and dry Objective Data Vital Signs Vital Signs: Vital Signs Temp Pulse Resp BP Pulse Ox O2 Del Method 10/22/23 09:02 63 10/22/23 09:01 63 10/22/23 09:00 63 14 102/73 97 10/22/23 08:25 97 Maria
[2023-10-22 12:23] LABS: Glucose Point of Care 247 mg/dl (65-105)
--- NOTE | 2023-10-22 12:25 | PM.PNPUL ---
Progress Note: A&P Assessment and Plan (1) Dyspnea on exertion: Code(s): R06.00 - Dyspnea, unspecified Status: Acute Assessment and Plan: 10/21/23: The patient has episodic dyspnea, does not appear to have actual pneumonia this admission. PFTs do not confirm obstructive airways disease. She does have significant pulmonary hypertension, cause not clear. Most pulmonary hypertension is secondary to lung disease or heart disease. Prior workup showed normal ANIA several times, likely she does not have collagen vascular disease. Does not have any obvious collagen vascular physical findings, no deforming arthritis, rashes, See pulmonary hypertension section below. She acknowledged that she might benefit from rehab. Rehab will allow her to have more support, and she will have more physical conditioning. her episodic shortness of breath is not due to CHF per cardiology; not clear what the root cause is. This may be due to her pulmonary hypertension. Doubt this due to sleep and hypoxemia. She has atypical symptoms, may have a common condition with uncommon way of describing her symptoms. Stopped Trelegy; Advair or other 2 drug combination without LAMA. She is a never-smoker; last PFT was 04/15/2020, normal FEV1/FVC, no response to bronchodilator, air trapping, moderate diffusion impairment which overcorrects for alveolar volume; this is not emphysema. Not sure she has obstructive lung disease, therefore bronchodilators may not be adding anything. With Trelegy, she c/o burning, feeling as if it is too strong. 10/22/23: the hospice spiritual care coordinator inform you that the patient can walk 200 ft with a walker and does not qualify for inpatient rehab. Etiology of dyspnea on exertion includes pulmonary hypertension from untreated obstructive sleep apnea, morbid obesity and deconditioning. From a pulmonary perspective patient be discharged on these pulmonary medications: Advair HFA 230-21 at 2 puffs q.12 hours. Rescue albuterol 2 puffs q.4 hours p.r.n. shortness of breath or wheezing. When she naps or sleeps: Auto PAP 8-18 to be arranged through [employer]. blood pressure and diuretics per hospitalist team. Currently she is on metoprolol 37.5.5 q.12 hours, diltiazem 120 p.o. q.day, Bumex 1 mg p.o. b.i.d.. Follow-up in the Pulmonary Clinic in [address] Dorantes, call with questions. (2) FILI (obstructive sleep apnea): Code(s): G47.33 - Obstructive sleep apnea (adult) (pediatric) Status: Acute Assessment and Plan: 10/20: Most recent sleep study was June 27, 2023 a split night study with an AHI of 15 0.3 and desaturation 84%. She has not been set up with PAP yet. The final pressure during this setting was 10 cm but here on APAP with pressures increased to 8-18 for several nights, feels better, finally getting sleep, wants to use at discharge. This will be arranged at discharge to rehab, then set up at home. Not sure what happened, she says that she was going to get PAP set up at home but DME was calling when she was getting admitted to hospital. continue increased range on APAP 8-18 cm; she said that APAP 5-15 cm was not enough pressure, had a sensation of smothering. Had final pressure of CPAP 10 cm on split night study however she was in a recliner, reducing severity of FILI. She is in a bed here, still sleeping with HOB elevated. Set home device APAP with higher pressures as the CPAP 10 may not be enough pressure. 10/21: The patient could not tolerate auto PAP 5-15 but felt much better on auto PAP 8-18. I will continue auto PAP 8-18 when she is discharged home. Her home DME company is [employer] and I have sent an order into them. The patient will need to schedule a set up at the [facility] office which will be the quickest scenario for her to get set up with the auto Pap otherwise she will need to make a home appointment with [facility] to get this
--- NOTE | 2023-10-22 13:46 | PM.DS ---
DS: Admitting Diagnosis Discharge Date 10/22/23 Admitting Diagnosis Chest pain and SOB DS: Discharge Diagnosis Discharge Diagnosis (1) CASTELAN (dyspnea on exertion): Code(s): R06.00 - Dyspnea, unspecified Status: Acute (2) Acute kidney injury superimposed on chronic kidney disease: Code(s): N17.9 - Acute kidney failure, unspecified; N18.9 - Chronic kidney disease, unspecified Status: Acute (3) Acute on chronic heart failure with preserved ejection fraction: Code(s): I50.33 - Acute on chronic diastolic (congestive) heart failure Status: Acute (4) Pneumonia: Code(s): J18.9 - Pneumonia, unspecified organism Status: Acute (5) Chronic kidney disease, stage 3b: Code(s): N18.32 - Chronic kidney disease, stage 3b Status: Chronic (6) Edema: Code(s): R60.9 - Edema, unspecified Status: Acute (7) Essential hypertension: Code(s): I10 - Essential (primary) hypertension Status: Chronic (8) Type 2 diabetes mellitus with hyperglycemia: Code(s): E11.65 - Type 2 diabetes mellitus with hyperglycemia Status: Chronic (9) FILI (obstructive sleep apnea): Code(s): G47.33 - Obstructive sleep apnea (adult) (pediatric) Status: Acute (10) COPD (chronic obstructive pulmonary disease): Code(s): J44.9 - Chronic obstructive pulmonary disease, unspecified Status: Acute (11) Coronary artery disease: Code(s): I25.10 - Atherosclerotic heart disease of [place] coronary artery without angina pectoris Status: Acute (12) Morbid obesity with BMI of 45.0-49.9, adult: Code(s): E66.01 - Morbid (severe) obesity due to excess calories; Z68.42 - Body mass index [BMI] 45.0-49.9, adult Status: Acute DS: Summary Hospital Course Reason for hospitalization: 72yo female with PMHx of CAD s/p IL in December & CABG, hypothyroidism, HLD, HTN, T2DM, CKD, CHF, and anemia presenting for chest pain and SOB. Please see H&P for details. Hospital Course: Patient presented with pleuritic right-sided chest 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 D-Dimer was positive but CTA chest showing no PE and LE venous doppler negative for DVT. Rib xray negative for fracture and no evidence of shingles. Suspect chronic musculoskeletal pain that worsened due to tachypnea and cough.? Lidocaine patch ordered. CT did show small pulmonary nodules with interval change in distribution, may be a component of edema or infection. Possible pneumonia so she was on Rocephin and azithromycin.? She completed abx; off abx 10/03. Repeat imaging showing resolution. Baseline Cr 1.6-1.8 range. Cr 1.6 on admission but climbed to 3.2 related to contrast, diuretics, ARB and underlying CKD. Renal US showing no acute findings. Nephrology following and appreciate their input. Nuclear med renal scan ordered showing symmetric renal fxn with borderline delayed clearance c/w ATN; consider also due to contrast nephropathy in conjunction with IV diuretic therapy. Lyrica dose renally adjusted. On a low potassium diet. Remains on oral Bumex 1mg BID. Home Bumex dose was 2mg BID but reluctant to advance. Cr stable at 2.2 today. Suspected some component of CHF based on presentation of SOB and evidence of fluid overload. Echo on 09/27 noted: LVEF 60-65%, grade 1 diastolic dysfunction, mild biatrial enlargement, mild TR. Over 10L negative since admission. Diuretics were on hold due to KEZIA -- resumed on oral bumex. Repeat CT of chest on 10/12 noted no acute thoracic process. Concern for ischemia with abnormal stress test recently but no plans for inpatient ischemic evaluation at this time. Cardiology was consulted and was following. SHe continued to have significant LE edema which is a chronic issue. Likely due to a combination of salt/fluid retention (from kidney disease), proteinuria, diastolic heart failure, FILI, and chronic lymphedema. Follow-up with lymphedema clinic as outpatient Patient c
== END 2023-10-22 14:33 | disposition home or self-care (01) | DRG 291 ==
LOC: ANHED 18:38 → ANHIMU 23:03 → ANH2MED 10-04 15:38 → ANHIMU 10-23 11:00
PROVIDERS: Internal Medicine; Internal Medicine Nephrology; Nurse Practitioner Family; Student in an Organized Health Care Education/Training Program; Admitting Provider Family Medicine; Emergency Provider Physician Assistant; PCP Physician Assistant; Visit Provider Internal Medicine
DX: I13.0 Hypertensive heart and chronic kidney disease with heart failure and stage 1 through stage 4 chronic kidney disease, or unspecified chronic kidney disease (principal); I50.33 Acute on chronic diastolic (congestive) heart failure; J18.9 Pneumonia, unspecified organism; N17.9 Acute kidney failure, unspecified; Z68.43 Body mass index [BMI] 50.0-59.9, adult; I69.354 Hemiplegia and hemiparesis following cerebral infarction affecting left non-dominant side; J45.901 Unspecified asthma with (acute) exacerbation; J44.0 Chronic obstructive pulmonary disease with (acute) lower respiratory infection; Q79.60 Ehlers-Danlos syndrome, unspecified; N18.32 Chronic kidney disease, stage 3b; E11.65 Type 2 diabetes mellitus with hyperglycemia; G47.33 Obstructive sleep apnea (adult) (pediatric); E11.22 Type 2 diabetes mellitus with diabetic chronic kidney disease; E11.319 Type 2 diabetes mellitus with unspecified diabetic retinopathy without macular edema; E11.42 Type 2 diabetes mellitus with diabetic polyneuropathy; D64.9 Anemia, unspecified; E66.01 Morbid (severe) obesity due to excess calories; K21.9 Gastro-esophageal reflux disease without esophagitis; E03.9 Hypothyroidism, unspecified; I25.10 Atherosclerotic heart disease of native coronary artery without angina pectoris; Z95.1 Presence of aortocoronary bypass graft; I25.2 Old myocardial infarction; E78.5 Hyperlipidemia, unspecified; Z90.710 Acquired absence of both cervix and uterus; Z96.651 Presence of right artificial knee joint; R91.1 Solitary pulmonary nodule; I27.21 Secondary pulmonary arterial hypertension
CPT/HCPCS: 36415; 70450; 71045; 71046; 71100; 71250; 71275; 72125; 76775; 78582; 78707; 80048; 80053; 80069; 82550; 82570; 82948; 83735; 83880; 84100; 84156; 84300; 84484; 84540; 85025; 85027; 85055; 85380; 85610; 85730; 87636; 93005; 93970; 94002; 94003; 94640; 94660; 94667; 94668; 96365; 96366; 96367; 96375; 97110; 97161; 97165; 97166; 97530; 97535; 99285; A9270; A9540; A9558; A9562; C8929; G0378; J0456; J0696; J1650; J1815; J1939; J1940; J7512; Q9957; Q9967

== ENCOUNTER 2023-10-30 12:04 | Outpatient (CLI) | payer MEDICARE, SELFPAY ==
[2023-10-30 13:01] LABS: Hematocrit 33.3 % (37.0-47.0); Hemoglobin 10.4 g/dL (12.0-15.0); Mean Corpuscular HGB Conc 31.2 g/dl (32-36); Mean Corpuscular Hemoglobin 30.4 pg (26-34); Mean Corpuscular Volume 97.4 fl (80-100); Mean Platelet Volume 12.8 fl (7.4-10.4); Platelet Count Result 164 k/mm3 (150-375); Red Blood Count 3.42 M/mm3 (4.2-5.4); Red Cell Distribution Width 16.5 % (11.5-14.5); White Blood Count 5.6 K/mm3 (4.5-10.0)
[2023-10-30 13:16] LABS: Albumin Level 3.9 g/dL (3.5-5.1); Anion Gap 3 mmol/L (4-12); Blood Urea Nitrogen 21 mg/dL (7-17); Calcium 9.3 mg/dL (8.4-10.2); Carbon Dioxide 31 mmol/L (22-30); Chloride 106 mmol/L (98-107); Estimated Glomerular Filt Rate 29; Glucose 113 mg/dL (65-110); Phosphorus 3.5 mg/dL (2.5-4.5); Potassium 3.9 mmol/L (3.4-5.0); Sodium 140 mmol/L (137-145)
[2023-10-30 13:30] LABS: Parathyroid Intact 62.8 pg/mL (7.5-53.5)
[2023-10-30 14:10] LABS: Creatinine Urine 168.9 mg/dL
[2023-10-30 20:42] LABS: Total Protein Urine Random > 600 mg/dL
== END 2023-10-30 12:05 | disposition home or self-care (01) ==
PROVIDERS: PCP Physician Assistant; Referring Provider Internal Medicine Nephrology; Visit Provider Internal Medicine
DX: E55.9 Vitamin D deficiency, unspecified (principal); I12.9 Hypertensive chronic kidney disease with stage 1 through stage 4 chronic kidney disease, or unspecified chronic kidney disease; E11.65 Type 2 diabetes mellitus with hyperglycemia; N17.9 Acute kidney failure, unspecified; N18.32 Chronic kidney disease, stage 3b; R60.9 Edema, unspecified
CPT/HCPCS: 36415; 80069; 82570; 83970; 84156; 85027

== ENCOUNTER 2024-03-14 16:52 | Emergency (ER) | payer MEDICARE, SELFPAY ==
--- NOTE | 2024-03-14 16:58 | ED.FEMALEGU ---
HPI - Female Genitourinary General Chief complaint: Urogenital-Female Stated complaint: UTI Time Seen by Provider: 03/14/24 16:59 Source: patient Mode of arrival: ambulatory Limitations: no limitations History of Present Illness HPI Narrative: Katlin is a 73-year-old female patient presenting to the clinic today with complaints of a possible urinary tract infection. She reports she has had burning with urination for a while. States that she was taking some antibiotic powder that her primary care doctor sent her in and this seemed to improve a however she is still having some burning. States that she was supposed to go to [facility] and give a urine sample however they are closed at this time so she wanted to be evaluated in the [facility]. She reports some associated chills and back pain. Denies any known fever. Related Data Home Medications Medication Instructions Recorded Confirmed clopidogrel 75 mg tablet 75 mg PO DAILY 02/18/21 03/14/24 metoprolol tartrate 37.5 mg tablet 37.5 mg PO Q12H 02/18/21 03/14/24 pantoprazole 40 mg tablet,delayed 40 mg PO HS 04/15/21 03/14/24 release ergocalciferol (vitamin D2) 1,250 1,250 mcg PO WEEKLY 04/07/22 03/14/24 mcg (50,000 unit) capsule famotidine 40 mg tablet 40 mg PO DAILY 01/15/23 03/14/24 ketorolac 0.5 % eye drops 1 drp RIGHT EYE TID 01/15/23 03/14/24 bumetanide 2 mg tablet 2 mg PO BID 10/31/23 03/14/24 amlodipine 10 mg tablet 10 mg PO DAILY 03/14/24 03/14/24 ipratropium bromide 0.02 % See Rx Instructions .Route .COMPLEX 03/14/24 03/14/24 solution for inhalation losartan 100 mg tablet 100 mg PO DAILY 03/14/24 03/14/24 Allergies Allergy/AdvReac Type Severity Reaction Status Date / Time Penicillins Allergy Mild Itching Verified 03/14/24 17:05 Gwrgwvc-VBE-XpM Reductase Allergy Mild Cramping Verified 03/14/24 17:05 Inhibitor of the [Yftrwfu-Mka-Kzi Reductase Muscles Inhibitor] Review of Systems Review of Systems: Pertinent positives per HPI. Patient denies any fever, rash, headache, visual changes, dizziness, cough, runny nose, sore throat, shortness of breath, chest pain, palpitations, nausea, vomiting, diarrhea, constipation, abdominal pain. [facility] Past Medical History Medical History Anxiety Chronic anemia Chronic kidney disease, stage 3 Baseline creatinine appears to be around 1.50. Dyslipidemia Essential hypertension Gastroesophageal reflux disease Grade II diastolic dysfunction Ejection fraction at that time was 60 to 65%. History of cerebrovascular accident (01/2015) Residual left-sided paresthesias. Insulin dependent type 2 diabetes mellitus Complicated by diabetic retinopathy, neuropathy, and nephropathy. Hemoglobin A1c was 8.4% in September 2020. Morbid obesity Obstructive sleep apnea (~04/2020) Severe pulmonary arterial systolic hypertension (~01/2020) Shingles (~1999) Surgical History Surgical History History of 2 sections History of arthroplasty of right knee History of cataract extraction History of dilation and curettage History of inguinal hernia repair History of partial thyroidectomy History of tonsillectomy and adenoidectomy History of total hysterectomy Family History Family History Mother , age 80, congestive heart failure Heart disease High cholesterol Hypertension Cerebrovascular accident Diabetes mellitus Moses-Danlos disease Father Carcinoma of colon Cancer Sibling Systemic lupus erythematosus Heart disease Cancer Cerebrovascular accident Diabetes mellitus Moses-Danlos disease Social History Social History Social History: Patient lives at home with her fiance, [place]. She ambulates with a walker. She is mostly independent but does require some assi
[2024-03-14 17:10] VITALS: BP 153/54; PULSE 74; RESP 16; TEMP 36.9; O2SAT 97
[2024-03-14 17:15] LABS: EDUAAPPEAR Clear; EDUABILI Negative; EDUABLOOD Negative; EDUACOLOR1 Yellow; EDUAGLUCOSE 3+; EDUAKETONE Negative; EDUALEUKO Negative; EDUANITRATE Negative; EDUAPH 5.5; EDUAPROTEIN 3+; EDUAUROBILI 0.2
[2024-03-14 17:17] LABS: Glucose Point of Care 428 mg/dl (65-105)
== END 2024-03-14 17:22 | disposition home or self-care (01) ==
PROVIDERS: Emergency Provider Nurse Practitioner Family; PCP Physician Assistant
DX: R30.0 Dysuria (principal); E11.65 Type 2 diabetes mellitus with hyperglycemia; R81 Glycosuria; R80.9 Proteinuria, unspecified; I12.9 Hypertensive chronic kidney disease with stage 1 through stage 4 chronic kidney disease, or unspecified chronic kidney disease; E11.22 Type 2 diabetes mellitus with diabetic chronic kidney disease; N18.30 Chronic kidney disease, stage 3 unspecified; E78.5 Hyperlipidemia, unspecified; K21.9 Gastro-esophageal reflux disease without esophagitis; E11.319 Type 2 diabetes mellitus with unspecified diabetic retinopathy without macular edema; E11.40 Type 2 diabetes mellitus with diabetic neuropathy, unspecified; E11.21 Type 2 diabetes mellitus with diabetic nephropathy; E66.01 Morbid (severe) obesity due to excess calories; Z68.43 Body mass index [BMI] 50.0-59.9, adult
CPT/HCPCS: 81003; 82948; 87086; 99213; G0463

== ENCOUNTER 2024-04-28 09:39 | Outpatient (CLI) | payer MEDICARE, SELFPAY ==
--- NOTE | ~2024-04-28 | DEXA_ITS ---
Bone Density Report Name: ARIEL GRIFFIN Age: 73 Sex: Female Ethnicity: Black Date of : 1950 Indication: postmenopausal; screening for osteoporosis; height loss; asthma or emphysema; hysterectomy; Referring Provider: HAILY, PUJA Marino Study: Bone densitometry was performed. Exam Date: April 28, 2024 Accession number: [id number] Bone Density: Region BMD T-score Z-score Classification AP Spine(L1-L4) 1.342 2.7 4.4 Normal Femoral Neck (Left) 1.077 2.1 2.5 Normal Total Hip (Left) 1.243 2.5 2.7 Normal Femoral Neck (Right) 0.968 1.1 1.7 Normal Total Hip (Right) 1.171 1.9 2.2 Normal Total Hip Mean 1.207 2.2 2.5 Normal World Health Organization criteria for BMD impression classify patients as: Normal (T-score at or above -1.0), Osteopenia (T-score between -1.0 and -2.5), or Osteoporosis (T-score at or below -2.5). 10-year Fracture Risk: FRAX not reported because: All T-scores for Spine Total, Hip Total, Femoral Neck at or above -1.0 Previous Exams: Region Exam Age BMD T-score BMD Change BMD Change Date g/cm2 vs Baseline vs Previous Total Hip(Left) 04/28/2024 73 1.243 2.5 -0.025 (-2.0%) -0.025 (-2.0%) 11/08/2017 67 1.268 2.7 Total Hip(Right) 04/28/2024 73 1.171 1.9 -0.088 (-7.0%) -0.088 (-7.0%) 11/08/2017 67 1.260 2.6 *Denotes significance at 95% confidence level, LSC for Total Hip = 0.027 g/cm2 # Denotes dissimilar scan types or analysis methods Clinical Information Provided by Patient: Has the following medical conditions: Asthma or Emphysema, Hysterectomy Patient maximum height was 65.0 Menopause Age: 48 Onset of menses at age 13 Number of children 3 Impression: The patient has normal bone mass. The BMD for the Total Hip(Right) decreased, changing by -7.0% since the last DXA exam. Discussion: BONE DENSITY IS ABOVE THE MINIMUM DESIRABLE LEVEL AT ALL SKELETAL SITES TESTED. This patient?s bone mineral density is above the minimum desirable level (T-score -1.0 or better) at all sites measured. The patient should follow a healthful lifestyle (good nutrition with adequate calcium and vitamin D, and appropriate weight-bearing exercise). Follow-Up: Consider repeating this study in 3 to 4 years to reassess this patient's status, or sooner if there is some new clinical indication. Reported by: NORMA on 04/28/2024 10:30:00 AM. Reviewed, dictated and finalized at location [facility]
== END 2024-04-28 09:40 | disposition home or self-care (01) ==
LOC: ANHIMG 09:54
PROVIDERS: PCP Physician Assistant; Visit Provider Physician Assistant
DX: Z78.0 Asymptomatic menopausal state (principal)
CPT/HCPCS: 77080